=== PATIENT | male | born 1940 | race Caucasian/White ===

== ENCOUNTER 2021-11-26 18:51 | Outpatient (CLI) | payer MEDICARE, BC, SELFPAY ==
--- OUTSIDE RECORDS SUMMARY | 2021-11-26 13:29 | XMS_ITS | Clinical Summary ---
:1940 Author Organization [email or web address] [facility] [place] [address] Care Team Providers Name Role Phone Emil Cope MD Primary Care Provider Fuentes Romero MD Unavailable Nurses, Advanced Heart Failure Unavailable [phone] Allergies Active Allergy Reactions Severity Noted Date Comments Folic Acid Containing Drugs Diarrhea 08/24/2012 Claims to folic acid intolerant, cau ses diarrhea. Furosemide Rash Medium 01/13/2019 Amlodipine Edema 08/18/2006 Medications Medication Sig Dispensed Refills Start Date End Date Status ASPIRIN 81 MG TAB, take one tab 0 08/08/2008 Active DELAYED RELEASE daily glucosamine-chondroiti Take 1 capsule 0 04/27/2009 Active n, 500-400 mg, by mouth. Twice (COSAMIN DS 500/400) daily 500-400 mg Cap omega-3 fatty Take 2 capsules 0 08/23/2013 Active acids-vitamin E (FISH by mouth. OIL) 1,000 mg cap chlorthalidone Take 1 tablet by 90 tablet 3 08/22/2014 Active (HYGROTON) 25 mg mouth once tabletIndications: daily. Unspecified essential hypertension desoximetasone 0.25% Apply topically 1 Tube 6 08/22/2014 Active topical (TOPICORT) to affected 0.25 % cream area(s) 2 times daily. tamsulosin (FLOMAX) Take 1 capsule 90 capsule 3 08/22/2014 Active 0.4 mg by mouth once capsuleIndications: daily after a Unspecified essential meal. hypertension, Hypertrophy of prostate with urinary obstruction and other lower urinary tract symptoms (LUTS) ELIQUIS 2.5 mg tablet Take 1 tablet by 3 12/17/2018 Active mouth 2 times daily. ciclopirox 0.77% cream Apply topically 2 11/03/2018 Active (LOPROX) 0.77 % cream as needed. allopurinol (ZYLOPRIM) Take 2 tablets 2 03/16/2019 Active 100 mg tablet by mouth once daily. 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 3 03/06/2020 Active mg tabletIndications: mouth 2 times Chronic heart failure daily. with preserved ejection fraction (HFpEF) (HC) carvediloL (COREG) Take 1.5 tablets 270 tablet. 3 03/06/2020 Active 12.5 mg by mouth 2 times tabletIndications: daily with Chronic heart failure meals. with preserved ejection fraction (HFpEF) (HC) digoxin (LANOXIN) 125 Take 1 tablet by 90 tablet 3 03/06/2020 Active mcg (0.125 mg) mouth once tabletIndications: daily. Chronic heart failure with preserved ejection fraction (HFpEF) (HC) quinapriL (ACCUPRIL) Take 1 tablet by 90 tablet. 3 03/06/2020 Active 20 mg mouth once tabletIndications: daily. 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 Post-op serum creatinine 02/17/11 1.98 mg/dl. 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 Small RPDA ar ea in question. 08/05/2009 Hyperlipidemia 08/05/2009 Hypertrophy of prostate with urinary obstruction and o ther lower urinary 01/11/2007 tract symptoms (LUTS) Unspecified essential hypertension 11/30/2006 Resolved Problems Problem Noted Date Resolved Date Renal cell carcinoma 02/17/2011 03/04/2012 Left kidney mass 01/06/2011 06/10/2011 Overview: Seen on chest CT and abdominal MRI done 01/04. Patient referred to Urology for evaluation for possible biopsy and/or resection. SOB (shortness of breath) 09/17/2010 06/10/2011 Immunizations Name Administration Dates Next Due Td (Age >=7 Years) 07/21/1996 Family History Medical History Relation Name Comments Other Father jagdish eastman dis ease Cancer Mother lymphoma Relation Name Status Comments Father Mother Social History Tobacco Use Types Packs/Day Years Used Date Never Smoker Smokeless Tobacco: Never Used Tobacco Cessation: Counseling Given: Yes Alcohol Use Standard Drinks/Week Comments Yes 0 (1 standard drink = 0.6 oz pure alcoho l) rare Alcohol Habits Answer Date Recorded How often do you have a drink containing alcohol? Monthly or less 01/13/2019 How many drinks containing alcohol do you have on a 1 or 2 01/13/2019 typical day when you are drinking? How often do you have six or more drinks on one Not asked occasion? Comment: Not asked Sex Assigned at Date Recorded Not on file Obstetrics History Last Filed Vital Signs Vital Sign Reading Time Taken Comments Blood Pressure 108/60 03/05/2020 2:09 PM AITCHBONE BREAKER Pulse 64 03/05/2020 2:09 PM AITCHBONE BREAKER Temperature 36.1 ??C (97 ??F) 12/01/2014 11:20 AM CDT Respiratory Rate 18 11/23/2012 11:26 AM CDT Oxygen Saturation 96% 03/16/2019 3:04 PM AITCHBONE BREAKER Inhaled Oxygen Concentration - - Weight 126.6 kg (279 lb) 03/05/2020 2:09 PM AITCHBONE BREAKER Height 182.9 cm (6' 0.01) 03/16/2019 3:04 PM AITCHBONE BREAKER Body Mass Index 37.83 03/16/2019 3:04 PM AITCHBONE BREAKER Plan of Treatment Health Maintenance Due Date Last Done Comments COVID-19 vaccine series (#1) 02/24/1941 Tdap 1951 Hepatitis C screening for age 18-79 1960 Zoster (shingles) series for age 50+ 1992 (1 of 2) Medicare Wellness for age 65+ 08/26/2007 Pneumococcal series for age 65+ (1 - 08/26/2007 PCV) Depression screening for age 12+ 07/01/2016 07/02/2015 BMI (ht and wt on same day) for age 0103/16/2020 03/16/2019, 01/13/2019 18+ Tetanus booster 12/17/2020 12/17/2010 (Declined), 05/21/2010 (Declined), 07/21/1996 Influenza for age 65+ 10/31/2021 02/15/2013 Results Not on filefrom Last 3 Months Insurance Payer Benefit Plan / Subscriber ID Effective Dates Phone Addre ss Type Group MEDICARE PART B MEDICARE PART B [id number] 2007-Presen ATTN: CLAIMS - HB USE ONLY HB ONLY t [address] [place] [address] MEDICARE PART A MEDICARE PART A [id number] 2007-Presen ATTN: CLAIMS - HB USE ONLY HB ONLY t [address] [place] [address] BLUE CROSS [place] BLUE CROSS [id number] 2018-Presen [address] [address] [place], [place] [id number] Advance Directives Latest Code Status on File Code Status Date Activated Date Inactivated Comments Full Code 11/28/2007 8:43 PM 11/29/2007 5:18 PM Care Teams Journalism Professor Relationship Specialty Start Date End Date Emil Cope MD PCP - General Internal Medicine 09/07/181999 [place] [address] Fuentes Romero Cardiology - CHF Cardiovascular Disease 01/13/19 MD Juan [address] [facility] [address] [place] [address] Nurses, [facility] 01/13/19 Heart Failure Failure/Transplant Card [address] [place] [id number]
[2021-11-26 15:59] LABS: Albumin* 4.1 g/dL (3.3-5.0)
[2021-11-26 16:00] LABS: Chloride* 98 mmol/L (96-114); Potassium* 4.6 mmol/L (3.6-5.1); Sodium* 138 mmol/L (135-149)
[2021-11-26 16:02] LABS: Alkaline Phosphatase* 114 U/L (40-150); Aspartate Amino Transferase* 17 U/L (12-35); Bilirubin Total* 0.8 mg/dL (0.1-1.5); Blood Urea Nitrogen* 61 mg/dL (7-30); Carbon Dioxide* 28 mmol/L (20-32); Cholesterol* 109 mg/dL (90-199); Creatinine* 2.2 mg/dL (0.5-1.5); Estimated Glomerular Filt Rate 30 ml/min; Total Protein* 7.2 g/dL (6.0-8.3)
[2021-11-26 16:03] LABS: Alanine Aminotransferase* 14 U/L (4-50); Calcium* 9.6 mg/dL (8.4-10.6); Glucose* 114 mg/dL (60-115); HDL Cholesterol* 36 mg/dL (>=40); LDL Cholesterol Calculated 50 mg/dL (<100); Triglycerides* 114 mg/dL (40-149)
[2021-11-26 16:31] LABS: PSA Screen* 2.31 ng/mL (0.10-4.00)
== END 2021-11-26 18:52 | disposition home or self-care (01) ==
PROVIDERS: PCP Internal Medicine; Visit Provider Internal Medicine
DX: Z00.00 Encounter for general adult medical examination without abnormal findings (principal); I50.30 Unspecified diastolic (congestive) heart failure; N40.0 Benign prostatic hyperplasia without lower urinary tract symptoms; I10 Essential (primary) hypertension; E66.9 Obesity, unspecified; N18.4 Chronic kidney disease, stage 4 (severe); D63.1 Anemia in chronic kidney disease; Z13.6 Encounter for screening for cardiovascular disorders
CPT/HCPCS: 80053; 80061; 84153

== ENCOUNTER 2021-12-04 14:40 | Outpatient (CLI) | payer MEDICARE, BC, SELFPAY ==
--- OUTSIDE RECORDS SUMMARY | 2021-12-04 14:43 | XMS_ITS | Clinical Summary ---
:1940 Author Organization [employer] [facility] [place] [address] Care Team Providers Name Role Phone Emil Cope MD Primary Care Provider Fuentes Romero MD Unavailable Nurses, Advanced Heart Failure Unavailable [phone] Allergies Active Allergy Reactions Severity Noted Date Comments Folic Acid Containing Drugs Diarrhea 08/24/2012 Claims to folic acid intolerant, cau ses diarrhea. Furosemide Rash Medium 01/13/2019 Amlodipine Edema 08/18/2006 Medications Medication Sig Dispensed Refills Start End Date Status Date glucosamine-chondro Take 1 0 Active itin, 500-400 mg, capsule by 0 (COSAMIN DS mouth. Twice 500/400) 500-400 mg daily Cap omega-3 fatty Take 2 0 Active acids-vitamin E capsules by 4 (FISH OIL) 1,000 mg mouth. cap chlorthalidone Take 1 tablet 90 tablet 3 A ctive (HYGROTON) 25 mg by mouth once 5 tabletIndications: daily. Unspecified essential hypertension desoximetasone Apply 1 Tube 6 Activ e 0.25% topical topically to 5 (TOPICORT) 0.25 % affected cream area(s) 2 times daily. tamsulosin (FLOMAX) Take 1 90 capsule 3 Active 0.4 mg capsule by 5 capsuleIndications: mouth once Unspecified daily after a essential meal. hypertension, Hypertrophy of prostate with urinary obstruction and other lower urinary tract symptoms (LUTS) ELIQUIS 2.5 mg Take 1 tablet 3 A ctive tablet by mouth 2 9 times daily. ciclopirox 0.77% Apply 2 Act nadia cream (LOPROX) 0.77 topically as 9 % cream needed. allopurinol Take 2 2 Active (ZYLOPRIM) 100 mg tablets by 0 tablet mouth once daily. 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 3 Active 1 mg by mouth 2 1 tabletIndications: times daily. Chronic heart failure with preserved ejection fraction (HFpEF) (HC) carvediloL (COREG) Take 1.5 270 tablet. 3 Active 12.5 mg tablets by 1 tabletIndications: mouth 2 times Chronic heart daily with failure with meals. preserved ejection fraction (HFpEF) (HC) digoxin (LANOXIN) Take 1 tablet 90 tablet 3 Active 125 mcg (0.125 mg) by mouth once 1 tabletIndications: daily. Chronic heart failure with preserved ejection fraction (HFpEF) (HC) quinapriL Take 1 tablet 90 tablet. 3 Activ e (ACCUPRIL) 20 mg by mouth once 1 tabletIndications: daily. Essential hypertension metOLazone Take one 60 Tablet 5 Active (ZAROXOLYN) 2.5 mg tablet in the 2 tabletIndications: morning on Chronic diastolic Thursday and heart failure (HC) Thursday ASPIRIN 81 MG TAB, take one tab 0 11/30/19 Discontinued DELAYED RELEASE daily 9 22 (*Me d complete/R egimen complete/L evel of care fede) Active Problems Problem Noted Date Knee pain, [...] resection. SOB (shortness of breath) 09/17/2010 06/10/2011 Encounters Date Type Specialty Care Team Description 11/29/2021 Office Visit David East MD Follow Up 11/29/2021 Travel from Last 3 Months Immunizations Name Administration Dates Next Due Td (Age >=7 Years) 07/21/1996 Family History Medical History Relation Name Comments Other Father jagdish mcguire's dis ease Cancer Mother lymphoma Relation Name [...] Assigned at Date Recorded Not on file COVID-19 Exposure Response Date Recorded In the last 10 days, have you been in contact Unable to asse ss 11/29/2021 12:43 PM CDT with someone who was confirmed or suspected to have Coronavirus/COVID-19? Obstetrics History Last Filed Vital Signs Vital Sign Reading Time Taken Comments Blood Pressure 136/70 11/29/2021 1:10 PM CDT Pulse 58 11/29/2021 1:10 PM CDT Temperature 36.1 ??C (97 ??F) 12/01/2014 11:20 AM CDT Respiratory Rate 18 11/29/2021 1:10 PM CDT Oxygen Saturation 96% 03/16/2019 3:04 PM HUMAN RESOURCE STATISTICIAN Inhaled Oxygen Concentration - - Weight 118.8 kg (262 lb) 11/29/2021 1:10 PM CDT Height 182.9 cm (6' 0.01) 03/16/2019 3:04 PM HUMAN RESOURCE STATISTICIAN Body Mass Index 35.53 03/16/2019 3:04 PM HUMAN RESOURCE STATISTICIAN Plan of Treatment Upcoming Encounters Date Type Specialty Care Team Description 12/04/2021 Orders Only Health Maintenance Due Date Last Done Comments Pneumococcal series for age 65+ (1 1948 - PCV) Tdap 1953 Hepatitis C screening for age 0608/25/1960 18-79 Zoster (shingles) series for age 0608/25/1992 50+ (1 of 2) Medicare Wellness for age 65+ 08/26/2007 Depression screening for age 12+ 07/01/2016 07/02/2015 BMI (ht and wt on same day) for 03/16/2020 03/16/2019, 12/31 age 18+ Tetanus booster 12/17/2020 12/17/2010 (Declined), 05/21/2010 (Declined), 07/21/1996 COVID-19 vaccine series (5 - 09/17/2021 07/23/2021, 021, Booster for Pfizer series) 05/01/2020, Additiona l history exists Influenza for age 65+ 10/31/2021 02/15/2013 Results Not on filefrom Last 3 Months Insurance Payer Benefit Plan / Subscriber ID Effective Dates Phone Addre ss Type Group MEDICARE PART B MEDICARE PART B [id number] 2007-Presen ATTN: CLAIMS - HB USE ONLY HB ONLY t [address] [place] [address] MEDICARE PART A MEDICARE PART A [id number] 2007-Alexia ATTN: CLAIMS - HB USE ONLY HB ONLY t [address] [place] [address] BLUE CROSS MR HART CROSS [id number] 2018-Alexia [address] [address] [place], [place] [id number] Advance Directives Latest Code Status on File Code Status Date Activated Date Inactivated Comments Full Code 11/28/2007 8:43 PM 11/29/2007 5:18 PM Care Teams Animal Taxonomist Relationship Specialty Start Date End Date Emil Cope MD PCP - General Internal Medicine 09/07/181999 [place] [address] Fuentes Romero Cardiology - CHF Cardiovascular Disease 01/13/19 MD Juan [address] [facility] [address] [place], [place] [id number] Nurses, Advanced [facility] 01/13/19 Heart Failure Failure/Transplant Card [address] [place], [place] [id number]
== END 2021-12-04 14:41 | disposition home or self-care (01) ==
PROVIDERS: PCP Internal Medicine; Visit Provider Internal Medicine
DX: I95.9 Hypotension, unspecified (principal); I07.1 Rheumatic tricuspid insufficiency; I51.7 Cardiomegaly; I31.39 Other pericardial effusion (noninflammatory)
CPT/HCPCS: 93306

== ENCOUNTER 2021-12-11 11:29 | Outpatient (CLI) | payer MEDICARE, BC, SELFPAY ==
--- OUTSIDE RECORDS SUMMARY | 2021-12-11 13:11 | XMS_ITS | Clinical Summary ---
:1940 Author Organization [employer] [facility] [place] [address] Care Team Providers Name Role Phone Emil Holcomb MD Primary Care Provider Fuentes Romero MD Unavailable Nurses, Advanced Heart Failure Unavailable [phone] Allergies Active Allergy Reactions Severity Noted Date [...] d complete/R egimen complete/L evel of care fdee) Active Problems Problem Noted Date Knee pain, [...] Specialty Care Team Description 12/04/2021 Orders Only <No scans attac hed> 12/04/2021 Travel 11/29/2021 Office Visit David East MD Follow [...] 10 days, have you been in contact with No / Unsu re 12/04/2021 3:41 PM CDT someone who was confirmed or suspected to have Coronavirus/COVID-19? Obstetrics History Last Filed Vital Signs Vital Sign Reading Time Taken Comments Blood Pressure 136/70 11/29/2021 1:10 PM CDT Pulse 58 11/29/2021 1:10 PM CDT Temperature 36.1 ??C (97 ??F) 12/01/2014 11:20 AM CDT Respiratory Rate 18 11/29/2021 1:10 PM CDT Oxygen Saturation 96% 03/16/2019 3:04 PM CORPORATE LEGAL SECRETARY Inhaled Oxygen Concentration - - Weight 118.8 kg (262 lb) 11/29/2021 1:10 PM CDT Height 182.9 cm (6' 0.01) 03/16/2019 3:04 PM CORPORATE LEGAL SECRETARY Body Mass Index 35.53 03/16/2019 3:04 PM CORPORATE LEGAL SECRETARY Plan of Treatment Health Maintenance Due Date [...] exists Influenza for age 65+ 10/31/2021 02/15/2013 Procedures Procedure Name Priority Date/Time Associated Diagnosis Comme nts ECHO COMPLETE WO Routine 12/04/2021 4:58 PM Hypotension Resul ts for this CONTRAST CDT procedure are i n the results section. from Last 3 Months Results ECHO COMPLETE WO CONTRAST (12/04/2021 4:58 PM CDT) P athologist Signature AORTIC VALVE 6 mmHg MEAN PG EJECTION 62 % FRACTION PEAK TR 3.0 m/s VELOCITY LVEDD 5.4 cm Anatomical Region Laterality Modality HEART Ultrasound Specimen (Source) Anatomical Collection Method Collection Time Re ceived Time Location / / Volume Laterality 12/04/2021 3:54 PM CDT Narrative 12/04/2021 5:03 PM CDT ECHOCARDIOGRAM MR. SHIVA MONIQUE ? Accessi on#: ?? [id number] : ?1940 81 years Study Date: ?? 12/04/2021 3:54:43 PM Gender: M ?BP: ? 136/70 mmHg Height: 183.00 cm ?BSA: ?2.39 m? ?? Weight: 119.00 kg ?Tech: ? MTS ? Referring MD: EMIL HOLCOMB Site: ? [facility] Reading Location: MOBILE OP Procedure: 2D, Color Doppler and Spectra l Doppler. Indication for study: Hypotension [I95.9 (ICD-10-CM)] Cardiac Rhythm: Irregular.Study quality: Fair. Final Impressions: 1. Normal left ventricular size, modera tely increased wall thickness, normal global systolic function, calculated EF of 62 %. 2. Right ventricular cavity size is mil dly enlarged, global systolic RV function is mildly reduced. 3. Moderately enlarged left atrium. 4. Moderate tricuspid regurgitation, th e estimated right ventricular systolic pressure is 36 mmHg plus right atrial pressure. 5. The inferior vena cava is dilated, r espiratory size variation less than 50%. 6. The ascending aorta is dilated with a maximal diameter of 4.3 cm. 7. The aortic sinus is dilated with a m aximal diameter of 4.3 cm. 8. Trivial pericardial effusion. Chamber Sizes and Function Normal left ventricular size, moderately increased wall thickness, normal global systolic function, calculated EF of 62 %. Left atrial size is moderately enlarged. Right ventricular cavity size is mildl y enlarged, global systolic RV function is mildly reduced. The right atrium is moderately enlarged. Right atrial volume index is 43 ml/m? ??. Right atrial area is 34 cm? ??. The pulmonary artery is not well visualized. The sinus of Valsalva i s dilated. The ascending aorta is dilated. Valves, RV Pressures and Diastolic Funct ion The aortic valve is trileaflet, no steno sis and mild regurgitation. The mitral valve is normal in structure, trace mitral regurgitation. Indeterminate pattern of LV diastolic filling. The tricuspid valv e is normal in structure. Tricuspid regu rgitation is moderate-severe. The tricuspid regurgitant velocity is 3.0 m/s, the estimated right ventricular systolic pressure is 36 mmHg plus right atrial pressu re. The pulmonic valve is normal. No pul monary regurgitation. Masses, Effusion, Shunts There is trivial pericardial effusion. T he inferior vena cava is dilated, respiratory size variation less than 50%. Interatrial septum is not well visualized. MEASUREMENTS AND CALCULATIONS 2-D Measurements and LV Function: LVID (d) 5.4 cm Planimetered EF 62 % LVID (s) 3.7 cm LV FS% (2D) ? 32 % IVS (d) ??1.6 cm LVOT diameter ?? 2.4 cm LVPW (d) 1.5 cm HR ?6 8 bpm Ao Sinus 4.3 cm LA Vol index ?48 ml/ m2 Asc Ao ?? 4.3 cm RA Vol index ?43 ml /m2 LA ? 6.3 cm RA area ? 3 4 cm?RV Max 4C (d) ?? 4.3 cm Diastology: Mitral E Peak 1.0 m/s DT ? 241 msec Aortic Valve: Vmax ? 1.5 m/s ??CLAUDIA (V) ?? 2.98 cm? ?? VTI ?0.32 m ?? CLAUDIA (I) ?? 2.77 cm? ?? LVOT V max 1.0 m/s ??Max PG ?9 mmHg LVOT VTI ?? 0.19 m ?? Mean PG ?? 6 mmHg SV ? 89 ml ?Dim Index 0.60 SV index ?? 37 ml/m? ?? CO ?6.1 l/min ?CI ?2.5 l/min/m? ?? Mitral Valve: MVA ?3.1 cm? ?? MV P 1/2 70 msec Tricuspid Valve and estimated PA pressur es: TR Vmax 3.0 m/s TAPSE 2.0 cm TR maxG 36 mmHg . This study was interpreted by an [facility] facility. CC: [facility]. ??Final ?? Procedure Note Ghanshyam Kiran MD - 12/04/2021Format ting of this note might be different from the original. ECHOCARDIOGRAM MR. SHIVA MONIQUE : 1940 81 years Study Date: 12/04 3:54:43 PM Gender: M BP: 136/70 mmHg Height: 183.00 cm BSA: 2.39 m? ?? Weight: 119.00 kg Tech: [facility] Referring MD: EMIL HOLCOMB Site: [facility] [place] Reading Location: MOBILE OP Procedure: 2D, Color Doppler and Spectra l Doppler. Indication for study: Hypotension [I95.9 (ICD-10-CM)] Cardiac Rhythm: Irregular.Study quality: Fair. Final Impressions: 1. Normal left ventricular size, modera tely increased wall thickness, normal global systolic function, calculated EF of 62 %. 2. Right ventricular cavity size is mil dly enlarged, global systolic RV function is mildly reduced. 3. Moderately enlarged left atrium. 4. Moderate tricuspid regurgitation, th e estimated right ventricular systolic pressure is 36 mmHg plus right atrial pressure. 5. The inferior vena cava is dilated, r espiratory size variation less than 50%. 6. The ascending aorta is dilated with a maximal diameter of 4.3 cm. 7. The aortic sinus is dilated with a m aximal diameter of 4.3 cm. 8. Trivial pericardial effusion. Chamber Sizes and Function Normal left ventricular size, moderately increased wall thickness, normal global systolic function, calculated EF of 62 %. Left atrial size is moderately enlarged. Right ventricular cavity size is mildly enlarged, global systolic RV function is mildly re duced. The right atrium is moderately enlarged. Right atrial volume index is 43 ml/m? ??. Right atrial area is 34 cm? ??. The pulmonary artery is not well visualized. The sinus of Valsalva is dilated. The ascending aorta is dilated. Valves, RV Pressures and Diastolic Funct ion The aortic valve is trileaflet, no steno sis and mild regurgitation. The mitral valve is normal in structure, trace mitral regurgitation. Indeterminate pattern of LV diastolic filling. The tricuspid valve is normal in structure. Tricuspid regurgita tion is moderate-severe. The tricuspid regurgitant velocity is 3.0 m/s, the estimated right ventricular systolic pressure is 36 mmHg plus right atrial pressure. The pulmonic valve is normal. No pulmonary regurgitat ion. Masses, Effusion, Shunts There is trivial pericardial effusion. T he inferior vena cava is dilated, respiratory size variation less than 50%. Interatrial septum is not well visualized. MEASUREMENTS AND CALCULATIONS 2-D Measurements and LV Function: LVID (d) 5.4 cm Planimetered EF 62 % LVID (s) 3.7 cm LV FS% (2D) 32 % IVS (d) 1.6 cm LVOT diameter 2.4 cm LVPW (d) 1.5 cm HR 68 bpm Ao Sinus 4.3 cm LA Vol index 48 ml/m2 Asc Ao 4.3 cm RA Vol index 43 ml/m2 LA 6.3 cm RA area 34 cm? ?? RV Max 4C (d) 4.3 cm Diastology: Mitral E Peak 1.0 m/s DT 241 msec Aortic Valve: Vmax 1.5 m/s CLAUDIA (V) 2.98 cm? ?? VTI 0.32 m CLAUDIA (I) 2.77 cm? ?? LVOT V max 1.0 m/s Max PG 9 mmHg LVOT VTI 0.19 m Mean PG 6 mmHg SV 89 ml Dim Index 0.60 SV index 37 ml/m? ?? CO 6.1 l/min CI 2.5 l/min/m? ?? Mitral Valve: MVA 3.1 cm? ?? MV P 1/2 70 msec Tricuspid Valve and estimated PA pressur es: TR Vmax 3.0 m/s TAPSE 2.0 cm TR maxG 36 mmHg . This study was interpreted by an [facility] facility. CC: [facility]. Final Emil Holcomb MD ECHO ORD from Last 3 Months Insurance Payer Benefit Plan / Subscriber ID Effective Dates Phone Addre ss Type Group MEDICARE PART B MEDICARE PART B [id number] 2007-Presen ATTN: CLAIMS - HB USE ONLY HB ONLY t [address] [place] [address] MEDICARE PART A MEDICARE PART A [id number] 2007-Presen ATTN: CLAIMS - HB USE ONLY HB ONLY t [address] [place] [address] BLUE CROSS MR BLUE CROSS [id number] 2018-Presen [address] [address] [place], [place] [id number] Advance Directives Latest Code Status on File Code Status Date Activated Date Inactivated Comments Full Code 11/28/2007 8:43 PM 11/29/2007 5:18 PM Care Teams Social Worker Palliative Care Relationship Specialty Start Date End Date Emil Holcomb MD PCP - General Internal Medicine 09/07/181999 [place] [address] Fuentes Romero Cardiology - CHF Cardiovascular Disease 01/13/19 MD Juan [address] [facility] [address] [place] [address] Nurses, Advanced [facility] 01/13/19 Heart Failure Failure/Transplant Card [address], [place] [phone]
[2021-12-11 15:04] LABS: Chloride* 93 mmol/L (96-114); Potassium* 3.6 mmol/L (3.6-5.1); Sodium* 135 mmol/L (135-149)
[2021-12-11 15:06] LABS: Creatinine* 2.5 mg/dL (0.5-1.5); Estimated Glomerular Filt Rate 26 ml/min
[2021-12-11 15:07] LABS: Alanine Aminotransferase* 13 U/L (4-50); Alkaline Phosphatase* 104 U/L (40-150); Aspartate Amino Transferase* 15 U/L (12-35); Bilirubin Total* 0.6 mg/dL (0.1-1.5); Blood Urea Nitrogen* 89 mg/dL (7-30); Carbon Dioxide* 29 mmol/L (20-32); Glucose* 115 mg/dL (60-115); Total Protein* 6.9 g/dL (6.0-8.3)
[2021-12-11 15:08] LABS: Calcium* 9.4 mg/dL (8.4-10.6)
== END 2021-12-11 11:30 | disposition home or self-care (01) ==
LOC: NFLDREF 13:10
PROVIDERS: PCP Internal Medicine; Visit Provider Internal Medicine
DX: D63.1 Anemia in chronic kidney disease (principal); I10 Essential (primary) hypertension; I50.9 Heart failure, unspecified; N18.9 Chronic kidney disease, unspecified
CPT/HCPCS: 80053

== ENCOUNTER 2022-04-01 19:30 | Outpatient (REF) | payer MEDICARE, BC, SELFPAY ==
[2022-04-01 20:06] LABS: Albumin* 4.2 g/dL (3.3-5.0); Basophils Absolute Auto 0.05 K/uL (0.00-0.30); Basophils Percent Auto 0.6 % (0.0-3.0); Chloride* 96 mmol/L (96-114); Eosinophils Absolute Auto 0.32 K/uL (0.00-0.50); Eosinophils Percent Auto 3.9 % (0.0-7.0); Hematocrit 39.6 % (37.0-53.0); Hemoglobin* 12.8 gm/dL (13.5-17.5); Immature Granulocytes Abs Auto 0.01 K/uL (0.00-0.30); Immature Granulocytes Pct Auto 0.1 %; Lymphocytes Absolute Auto 1.81 K/uL (0.90-2.90); Lymphocytes Percent Auto 21.8 % (20-44); Mean Corpuscular HGB Conc 32 gm/dL (32-36); Mean Corpuscular Hemoglobin 30 pg (26-34); Mean Corpuscular Volume 93 fL (80-100); Monocytes Percent Auto 10.2 % (0.0-11.0); Neutrophils Absolute Auto 5.27 K/uL (1.7-7.0); Neutrophils Percent Auto 63.4 % (42.0-72.0); Platelet Count* 190 K/uL (140-440); Red Blood Count 4.25 m/uL (4.30-5.90); White Blood Count* 8.31 K/uL (4.50-11.00)
[2022-04-01 20:07] LABS: Potassium* 3.4 mmol/L (3.6-5.1); Sodium* 136 mmol/L (135-149)
[2022-04-01 20:09] LABS: Aspartate Amino Transferase* 36 U/L (12-35); Bilirubin Total* 0.5 mg/dL (0.1-1.5); Carbon Dioxide* 31 mmol/L (20-32); Estimated Glomerular Filt Rate 33 ml/min
[2022-04-01 20:10] LABS: Alanine Aminotransferase* 33 U/L (4-50); Alkaline Phosphatase* 104 U/L (40-150); Blood Urea Nitrogen* 41 mg/dL (7-30); Glucose* 103 mg/dL (60-115); Total Protein* 7.6 g/dL (6.0-8.3)
[2022-04-01 20:11] LABS: Slide Review Reflex No
[2022-04-03 04:27] LABS: Percent Iron Saturation 23 % (20-50); Total Iron Binding Capacity 361 ug/dL (261-462)
[2022-04-03 05:31] LABS: Iron* 83 ug/dL (49-181)
== END 2022-04-01 19:31 | disposition home or self-care (01) ==
LOC: NPINS 19:30
PROVIDERS: PCP Internal Medicine
DX: I50.9 Heart failure, unspecified (principal); N18.30 Chronic kidney disease, stage 3 unspecified; I10 Essential (primary) hypertension; M10.9 Gout, unspecified; I48.91 Unspecified atrial fibrillation; E66.9 Obesity, unspecified; I95.1 Orthostatic hypotension
CPT/HCPCS: 80053; 82728; 83540; 83550; 85025

== ENCOUNTER 2022-05-27 17:12 | Outpatient (REF) | payer MEDICARE, BC, SELFPAY ==
[2022-05-27 18:30] LABS: Chloride* 94 mmol/L (96-114); Potassium* 3.8 mmol/L (3.6-5.1); Sodium* 136 mmol/L (135-149)
[2022-05-27 18:33] LABS: Blood Urea Nitrogen* 44 mg/dL (7-30); Carbon Dioxide* 30 mmol/L (20-32); Creatinine* 2.3 mg/dL (0.5-1.5); Estimated Glomerular Filt Rate 28 ml/min
[2022-05-27 18:34] LABS: Calcium* 10.2 mg/dL (8.4-10.6); Glucose* 96 mg/dL (60-115)
== END 2022-05-27 17:13 | disposition home or self-care (01) ==
LOC: NPINS 17:12
PROVIDERS: PCP Internal Medicine
DX: I50.32 Chronic diastolic (congestive) heart failure (principal)
CPT/HCPCS: 80048

== ENCOUNTER 2022-11-07 15:14 | Outpatient (REF) | payer MEDICARE, BC, SELFPAY ==
[2022-11-07 15:28] LABS: Basophils Absolute Auto 0.05 K/uL (0.00-0.30); Basophils Percent Auto 0.5 % (0.0-3.0); Eosinophils Absolute Auto 0.25 K/uL (0.00-0.50); Eosinophils Percent Auto 2.5 % (0.0-7.0); Hemoglobin* 13.1 gm/dL (13.5-17.5); Immature Granulocytes Abs Auto 0.03 K/uL (0.00-0.30); Immature Granulocytes Pct Auto 0.3 %; Lymphocytes Percent Auto 19.9 % (20-44); Mean Corpuscular HGB Conc 33 gm/dL (32-36); Mean Corpuscular Hemoglobin 32 pg (26-34); Mean Corpuscular Volume 97 fL (80-100); Monocytes Percent Auto 9.2 % (0.0-11.0); Neutrophils Absolute Auto 6.64 K/uL (1.7-7.0); Neutrophils Percent Auto 67.6 % (42.0-72.0); Platelet Count* 197 K/uL (140-440); RDW Coefficient of Variation % 14.1 % (11.5-15.5); Red Blood Count 4.13 m/uL (4.30-5.90); White Blood Count* 9.83 K/uL (4.50-11.00)
[2022-11-07 15:32] LABS: Slide Review Reflex No
[2022-11-07 16:30] LABS: Ferritin* 72.5 ng/mL (17.9-464.0)
== END 2022-11-07 15:15 | disposition home or self-care (01) ==
LOC: NPINS 15:14
PROVIDERS: PCP Internal Medicine; Visit Provider Nurse Practitioner
DX: D50.8 Other iron deficiency anemias (principal)
CPT/HCPCS: 82728; 85025

== ENCOUNTER 2023-03-09 11:00 | Outpatient (CLI) | payer MEDICARE, BC, SELFPAY ==
--- OUTSIDE RECORDS SUMMARY | 2023-03-09 17:10 | XMS_ITS | Encounter Summary ---
Author Name Unknown Organization [place] Address [address] [facility] [place] [address] Care Team Providers Care Head Of Digital Advertising & Integration Name Role Phone Emmanuel Nobles MD Unavailable [phone] Anthony Leyva MD Unavailable [phone] Anthony Leyva MD Unavailable [phone] Evaristo Stack CNP Unavailable Shaila Mota APRN LANDSCAPER HELPER Unavailable Emil Cope MD Primary Care Provider Reason for Visit * Reason Comments Oncology Clinic Visit Encounter Details Date Type Department Care Team (Late st Contact Info) Description 11/10/2022 1:15 PM CDT Oncology Visit [address], [address] [place] [phone] Emmanuel Nobles MD [address] [place] [address] Evaristo Stack CNP [address] [place] [id number] Iron deficiency anemia due to chronic blood loss (Primary Dx); Myelodysplastic syndrome (H) Social History Tobacco Use Types Packs/Day Years Used Date Smoking Tobacco: Never Smokeless Tobacco: Never Alcohol Use Standard Drinks/Week Comments Yes 0 (1 standard drink = 0.6 oz pur e alcohol) very rare PHQ-2 Answer Date Recorded PHQ-2 Score 0 04/03/2022 Sex and Gender Information Value Date Recorded Sex Assigned at Not on file Gender Identity Not on file Sexual Orientation Not on file COVID-19 Exposure Response Date Recorded In the last 10 days, have yo u been in contact with someone who was confirmed or suspected to have Coronavirus/COVID-19? No / Unsure 11/10/2022 12:45 PM CDT documented as of this encounter Last Filed Vital Signs Vital Sign Reading Time Taken Comments Blood Pressure 128/69 11/10/2022 1:02 PM CDT Pulse 84 11/10/2022 1:02 PM CDT Temperature - - Respiratory Rate - - Oxygen Saturation 96% 11/10/2022 1:02 PM CDT Inhaled Oxygen Concentration - - Weight 112.3 kg (247 lb 8 oz) 11/10/2022 1:02 PM CDT Height 182.9 cm (6' 0.01) 11/10/2022 1:02 PM CD T Body Mass Index 33.56 11/10/2022 1:02 PM CDT documented in this encounter Progress Notes * Evaristo Stack, LANA - 11/10/2022 1:15 PM CDT [facility] Hematology and Oncology Progress Note Patient: Tutu Ngo Date of Service: Nov 10, 2022 Reason for Visit: Scheduled f/up Assessment and Plan: 1. Iron deficiency anemia and myelodysplastic syndrome, IPSS-R3.5: 82 year old. 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 Creatinines in the 1.6 range, diastolic heart failure, coronary artery disease, atrial fibrillation on apixaban and aspirin, hypertension, hyperlipidemia, gout and BPH. Patient presents accompanied by his . Overall, he has been feeling quite good. Appetite good - weight up ~5 pounds since last seen 4 months ago, ~15 pounds the past 9-months. Stable limited PS. No known source of blood loss. No history of or current alcohol abuse ... States he and his share a beer on special occasions. Off NSAIDs since diagnosis of anemia. Denies cough, fever, chills, unusual headaches, visual or mentation disturbance, bowel or bladder issues, rash. Outside CBC - WBC, differential and Plts WNL. HgB increased/stable @ 13.1 g/dL. Outside Ferritin - decreased/WNL @ 72.5. Continued good and lasting response to parenteral iron therapy. Last received 2 doses 300 mg venofer ~10 months ago, on 02/05 and 02/07/23 (HgB 11.6 at the time). HgB WNL/increased from that of 4-months ago. 01/14/22 small bowel capsule enteroscopy revealed proximal and mid jejunal apparent varices and erythematous gastropathy - likely source of bleed. No history of, or current alcohol abuse. Off NSAIDs since diagnosis of anemia. Does not need to start oral iron at this time (has never taken). Discussed routine monitoring through PCP. He wishes for us to continue to follow. Diastolic heart failure - follows with the chronic heart failure clinic, Dr Anthony Mazariegos. 6-month f/up with CBC and ferritin. Patient lives over 40 miles away in [place], [place]. I told him it would be totally appropriate to get his labs drawn at the [facility] and video f/up for his next appointment if desired. Hematologic History: 1. Iron deficiency anemia and myelodysplastic syndrome, IPSS-R3.5 12/12/2021-12/01/2021 hospitalized for hypotension, iron deficiency, abrupt anemia and diastolic heart failure. 12/12/21 inpatient EGD/colonoscopy revealed no apparent bleeding source. 12/14/21 CT CAP - revealed no retroperitoneal hematoma or gross small bowel pathology. 12/16/21 bone marrow biopsy revealed a hypercellular bone marrow with high normal CD34 positive blasts with increased CD56 suggestive of a myelodysplastic syndrome with increased B interstitial cellsassociated with normal chromosomes, MDS-NGS, FISH, and flow cytometry. Decreased bone marrow iron stores were noted with peripheral blood counts supporting a diagnosis of iron deficiency anemia associate with erythropoietin level 60 and a creatinine of 2.38. (anemia, hypercellular marrow, normal cytogenetics, blasts increased but less than 5%) 02/05/2022 and 02/07/2022 received 2 doses 300 mg venofer, after 500 mg iron sucrose administered as an inpatient. 01/14/22 small bowel capsule enteroscopy revealed proximal and mid jejunal apparent varices. Erythematous gastropathy was also observed. ECOG Performance: 2 - Ambulatory and independent in all ADLs; cannot work; up > 50% of the time Pain Pain Score: No Pain (0) Encounter Diagnoses: Problem List Items Addressed This Visit Hematologic Iron deficiency anemia due to chronic blood loss - Primary Relevant Orders Ferritin CBC with platelets and differential Other Visit Diagnoses Myelodysplastic syndrome (H) Relevant Orders Ferritin CBC with platelets and differential 28 minutes of time were spent on the date of this encounter with chart review, face to face time with the patient, examination, recommendations, documentation, and communication of the plan of care to the care team. Evaristo Stack, [facility] CC: Anthony Mazariegos MD Review of Systems: No fever or night sweats. No loss of weight. No lumps or bumps anywhere. No unusual headaches or eyesight issues. No dizziness. No bleeding from the nose. No sores in the mouth. No problems with swallowing. No chest pain. No shortness of breath. No cough. No abdominal pain. No nausea or vomiting. No diarrhea or constipation. No blood in stool or black colored stools. No problems passing urine. No numbness or tingling in hands or feet. No skin rashes. A 14 point review of systems is otherwise negative. Past History: Past Medical History: Diagnosis Date Anesthesia complication confusion & crying after bilat carpal tunnel surgery Arrhythmia a fib Atrial fibrillation (H) BPH (benign prostatic hyperplasia) Chronic kidney disease Colonic polyps Congestive heart failure (H) Cranial nerve palsy resolved Diastolic dysfunction Dyspnea on exertion Eczema GERD (gastroesophageal reflux disease) HTN (hypertension) Hyperlipidemia Obesity VIANNEY (obstructive sleep apnea) 02/03/2022 VIANNEY on CPAP Renal disease Past Surgical History: Procedure Laterality Date ARTHROPLASTY KNEE 03/29/2013 Procedure: ARTHROPLASTY KNEE; ARTHROPLASTY KNEE LEFT; Surgeon: Eric Pepper MD; Location: OR CAPSULE/PILL CAM ENDOSCOPY N/A 01/14/2022 Procedure: IMAGING PROCEDURE, GI TRACT, INTRALUMINAL, VIA CAPSULE; Surgeon: Jeb Burr MD;Location: GI COLONOSCOPY N/A 12/13/2021 Procedure: COLONOSCOPY WITH POLYPECTOMY AND CLIP PLACEMENT; Surgeon: Jose Alberto Diallo MD; Location: [facility] OR ESOPHAGOSCOPY, GASTROSCOPY, DUODENOSCOPY (EGD), COMBINED N/A 12/13/2021 Procedure: ESOPHAGOGASTRODUODENOSCOPY (EGD) WITH BIOPSIES; Surgeon: Jose Alberto Diallo MD; Location: [facility] OR HERNIA REPAIR left nephrectomy[ RELEASE CARPAL TUNNEL BILATERAL right total knee arthroplasty[ Physical Exam: BP 128/69 (BP Location: Right arm, Patient Position: Sitting, Cuff Size: Adult Large) Pulse 84 Ht 1.829 m (6' 0.01) Wt 112.3 kg (247 lb 8 oz) SpO2 96% BMI 33.56 kg/m?? GENERAL: Alert and oriented. Seated comfortably. In no distress. HEENT: Atraumatic and normocephalic. PRINCE. EOMI. No pallor. No icterus. No mucosal lesions. LYMPH NODES: No palpable cervical, axillary or inguinal lymphadenopathy. CHEST: Lungs clear to auscultation bilaterally. CVS: S1 and S2 heard. Regular rate and rhythm. ABDOMEN: Soft. Not tender. Overweight. No palpable hepatomegaly or splenomegaly. EXTREMITIES: Warm. SKIN: No rash, bruising or purpura noted. Lab Results: Reviewed recent outside labs with patient. Imaging: No results found. * Araceli Ospina MA - 11/10/2022 1:15 PM CDT Oncology Rooming Note November 10, 2022 1:20 PM Tutu Ngo is a 82 year old male who presents for: Chief Complaint Patient presents with Oncology Clinic Visit Initial Vitals: Ht 1.829 m (6' 0.01) BMI 32.81 kg/m?? Estimated body mass index is 32.81 kg/m?? as calculated from the following: Height as of this encounter: 1.829 m (6' 0.01). Weight as of 09/15/22: 109.8 kg (242 lb). Body surface area is 2.36 meters squared. Data Unavailable Comment: Data Unavailable No LMP for male patient. Allergies reviewed: Yes Medications reviewed: Yes Medications: Medication refills not needed today. Pharmacy name entered into [employer]: [place], [place] - [address] [facility] Clinical concerns: 4 month follow up Araceli Ospina MA documented in this encounter Plan of Treatment Upcoming Encounters Date Type Department Care Team (Late st Contact Info) Description 05/11/2023 1:30 PM CDT Virtual Visit [facility] [address] [place] [phone] Evaristo Stack, LANDSCAPER HELPER [address] [facility] [address] [facility] [place] [address] Nallely Saravia MD [address] [place], [place] [phone] Scheduled Orders Name Type Priority Associated Diagnoses Orde r Schedule Ferritin Lab Routine Iron deficiency anemia due to chronic blood loss Myelodysplastic syndrome (H) Expected: 05/11/2023 (Approximate), Expires: 11/11/2023 CBC with platelets and differential Lab Panel Routine Iron deficiency anemia due to chronic blood loss Myelodysplastic syndrome (H) Expected: 05/11/2023 (Approximate), Expires: 11/11/2023 documented as of this encounter Visit Diagnoses Diagnosis Iron deficiency anemia due to chronic blood loss- Primary Iron deficiency anemia secondary to blood loss (chronic) Myelodysplastic syndrome (H) Myelodysplastic syndrome, unspecified documented in this encounter Care Teams Head Of Digital Advertising & Integration Relationship Specialty Start Date End Date Emil Cope MD [facility] [address] [place] [address] PCP - General Emergency Medicine 09/30/22 Emmanuel Nobles MD [address] [facility] [place] [address] Hematology 02/07/22 Anthony Leyva MD [address] [place] [address] Gastroenterology 02/07/22 Anthony Leyva MD [address] [place] [address] Assigned Gastroenterology Provider 04/12/22 Evaristo Stack, LANA [address] [facility] [address] [place] [address] Assigned Cancer Care Provider 07/26/22 Shaila Mota APRN LANDSCAPER HELPER [address] [facility], [address] [place] [address] Assigned Heart and Vascular Provider 09/20/22 01/16/23 documented as of this encounter
--- OUTSIDE RECORDS SUMMARY | 2023-03-09 17:10 | XMS_ITS | Encounter Summary ---
Author Name Unknown Organization [place] Address [address] [facility] [place] [address] Care Team Providers Care Shell Machine Operator Name Role Phone HenryciraEmmanuel MD Unavailable [phone] Anthony Leyva MD Unavailable [phone] Anthony Leyva MD Unavailable [phone] Evaristo Stack CLAMSHELL OPERATOR Unavailable Shaila Mota APRN CLAMSHELL OPERATOR Unavailable Emil Cope MD Primary Care Provider Reason for Visit * Reason Comments Medication Refill Encounter Details Date Type Department Care Team (Late st Contact Info) Description 01/15/2023 Refill [place] [id number] [facility] [address] [place] [phone] Anthony Mazariegos MD [address] [facility] [address] [place], [place] [phone] Medication Refill Social History Tobacco Use Types Packs/Day Years Used Date Smoking Tobacco: Never Smokeless Tobacco: Never Alcohol Use Standard Drinks/Week Comments Yes 0 (1 standard drink = 0.6 oz pur e alcohol) very rare PHQ-2 Answer Date Recorded PHQ-2 Score 0 04/03/2022 Adolescent Education Answer Date Record ed Getting School Help Needed Not on file 12/14 Sex and Gender Information Value Date Recorded Sex Assigned at Not on file Gender Identity Not on file Sexual Orientation Not on file documented as of this encounter Plan of Treatment Upcoming Encounters Date Type Department Care Team (Late st Contact Info) Description 05/11/2023 1:30 PM CDT Virtual Visit [facility] [address] [place] [phone] Evaristo Stack CNP [address] [place] [phone] Nallely Saravia MD [address] [place], [place] [phone] documented as of this encounter Visit Diagnoses Diagnosis Hypokalemia Hypopotassemia documented in this encounter Care Teams Shell Machine Operator Relationship Specialty Start Date End Date Emil Cope MD [facility] [address] [place] [address] PCP - General Emergency Medicine 09/30/22 Emmanuel Nobles MD [facility] [place] [address] Hematology 02/07/22 Anthony Leyva MD [address] [place] [address] Gastroenterology 02/07/22 Anthony Leyva MD [address] [place] [address] Assigned Gastroenterology Provider 04/12/22 Evaristo Stack CNP [address] [place] [address] Assigned Cancer Care Provider 07/26/22 Shaila Mota, TOYA CLAMSHELL OPERATOR [address] [facility], [address] [place] [address] Assigned Heart and Vascular Provider 09/20/22 01/16/23 documented as of this encounter
--- OUTSIDE RECORDS SUMMARY | 2023-03-09 17:10 | XMS_ITS | Encounter Summary ---
Author Name Unknown Organization [place] Address [address] [facility] [place] [address] Care Team Providers Care Nursing Informatics Clinical Analyst Name Role Phone HenryciraEmmanuel MD Unavailable [phone] Anthony Leyva MD Unavailable [phone] Anthony Leyva MD Unavailable [phone] Evaristo Stack AUTHORIZATION NURSE Unavailable [phone] Shaila Mota APRN AUTHORIZATION NURSE Unavailable Emil Cope MD Primary Care Provider Reason for Visit * Reason Comments Medication Refill Encounter Details Date Type Department Care Team (Late st Contact Info) Description 11/17/2022 Refill [facility] Heart [facility] [address] [facility] [address] [place] [phone] Anthony Mazariegos MD [address] [facility] [address] [place], [place] [phone] Medication Refill Social History Tobacco Use Types [...] Recorded In the last 10 days, have [place] u been in contact with someone who was confirmed or suspected to have Coronavirus/COVID-19? No / Unsure 11/10/2022 12:45 PM CDT documented as of this encounter Plan of Treatment Upcoming Encounters Date Type Department Care Team (Late st Contact Info) Description 05/11/2023 1:30 PM CDT Virtual Visit [facility] [address] [facility] [address] [address] [place] [phone] Evaristo Stack CNP [address] [facility] [address] [place], [place] [phone] Nallely Saravia MD [address] [place], [place] [phone] documented as of this encounter Visit Diagnoses Diagnosis Permanent atrial fibrillation (H) Atrial fibrillation documented in this encounter Care Teams Nursing Informatics Clinical Analyst Relationship Specialty Start Date End Date Emil Cope MD [facility] [address] [place] [address] PCP - General Emergency Medicine 09/30/22 Emmanuel Nobles MD [facility] [place] [id number] Hematology 02/07/22 Anthony Leyva MD [address] [place] [address] Gastroenterology 02/07/22 Anthony Leyva MD [address] [place] [address] Assigned Gastroenterology Provider 04/12/22 Evaristo Stack, LANA [facility] [address] [place] [address] Assigned Cancer Care Provider 07/26/22 Shaila Mota APRN [facility] [address] [facility] [place] [address] Assigned Heart and Vascular Provider 09/20/22 01/16/23 documented as of this encounter
--- OUTSIDE RECORDS SUMMARY | 2023-03-09 17:10 | XMS_ITS | Encounter Summary ---
Author Name Unknown Organization [place] Address [facility] [place] [address] Care Team Providers Care Rodent Exterminator Name Role Phone Emmanuel Nobles MD Unavailable [phone] Anthony Leyva MD Unavailable [phone] Anthony Leyva MD Unavailable [phone] Evaristo Stack PARAMEDIC SUPERVISOR Unavailable Shaila Mota APRN PARAMEDIC SUPERVISOR Unavailable Emil Cope MD Primary Care Provider Reason for Referral * Consultation (Routine: Next available opening) - Pending Review Specialty Diagnoses / Procedures Referred By Contac t Referred To Contact Cardiovascular Disease Diagnoses Acute on chronic diastolic heart failure (H) Stage 3 chronic kidney disease, unspecified whether stage 3a or 3b CKD (H) Essential hypertension Iron malabsorption Permanent atrial fibrillation (H) VIANNEY (obstructive sleep apnea) Heart failure with preserved ejection fraction, unspecified HF chronicity (H) Chronic heart failure with preserved ejection fraction (H) Anthony Mazariegos MD [address] [facility] [address] [place] [address] Referral ID Status Reason Start Date Expiration Date V isits Requested Visits Authorized [id number] Pending Review 01/13/2023 01/13/2024 1 1 Question Answer Preferred Location: [facility] Follow-up with: Self Scheduling Instructions: [facility] will call you to coordinate your care as prescribed by your provider. If you have concerns about scheduling, please call [phone]. Comments [facility] will call you to coordinate your care as prescribed by your provider. If you have concerns about scheduling, please call [phone]. OPERATIVE TECH Reason for Visit * Reason Comments Follow Up * Consultation (Routine: Next available opening) - Pending Review Specialty Diagnoses / Procedures Referred By Contac t Referred To Contact Cardiovascular Disease Diagnoses Chronic heart failure with preserved ejection fraction (H) Shaila Mota APRN PARAMEDIC SUPERVISOR [address] [facility] [place] [address] Referral ID Status Reason Start Date Expiration Date V isits Requested Visits Authorized [id number] Pending Review 09/15/2022 09/15/2023 1 1 Encounter Details Date Type Department Care Team (Late st Contact Info) Description 01/13/2023 2:20 PM PERIOPERATIVE TECH Office Visit [facility] [address] [place] [address] Shaila Mota APRN PARAMEDIC SUPERVISOR [address] [facility] [place] [address] Anthony Mazariegos MD [address] [facility] [address] [place] [address] Acute on chronic diastolic heart failure (H); Stage 3 chronic kidney disease, unspecified whether stage 3a or 3b CKD (H); Essential hypertension; Iron malabsorption; Permanent atrial fibrillation (H); VIANNEY (obstructive sleep apnea); Heart failure with preserved ejection fraction, unspecified HF chronicity (H); Chronic heart failure with preserved ejection fraction (H) Social History Tobacco Use Types Packs/Day Years Used Date Smoking Tobacco: Never Smokeless Tobacco: Never Tobacco Cessation:Counseling Given: Not Answered Alcohol Use Standard Drinks/Week Comments Yes 0 [...] on file documented as of this encounter Last Filed Vital Signs Vital Sign Reading Time Taken Comments Blood Pressure 132/60 01/13/2023 2:03 PM PERIOPERATIVE TECH Pulse 83 01/13/2023 2:03 PM PERIOPERATIVE TECH Temperature - - Respiratory Rate 16 01/13/2023 2:03 PM PERIOPERATIVE TECH Oxygen Saturation 96% 01/13/2023 2:03 PM PERIOPERATIVE TECH Inhaled Oxygen Concentration - - Weight 110.5 kg (243 lb 8 oz) 01/13/2023 2:03 PM PERIOPERATIVE TECH Height 182.9 cm (6') 01/13/2023 2:03 PM PERIOPERATIVE TECH Body Mass Index 33.02 01/13/2023 2:03 PM PERIOPERATIVE TECH documented in this encounter Progress Notes * Anthony Mazariegos MD - 01/13/2023 2:20 PM CST Images from the original note were not included. [facility] [phone] Assessment/Recommendations Patient with heart failure with preserved ejection fraction, mild renal insufficiency, permanent atrial fibrillation appropriately anticoagulated because of elevated CHADS2 vascular score. Patient has a little bit of weight gain although I do not detect significant pulmonary vascular congestion. There may be slight crackles at the right base, no jugular venous distention but positive hepatojugular reflux. He has also had his creatinine creep up a bit. We will check a basic metabolic panel today as well as a B natruretic peptide. Based on that, we may change his diuretics briefly. He will continue to watch sodium in his diet and overall fluid intake. He will call if his weight continues to go up at which time we would have to supplement his diuretics with more metolazone. Currently takes metolazone twice a week in addition to his Bumex daily. Overall, I believe he looks good and we will continue to follow in this part of our heart failure clinic with Shaila. Thank you for allowing us to participate in his care. History of Present Illness/Subjective Mr. Tutu Ngo is a 82 year old male with known heart failure with preserved ejection fraction, mild renal insufficiency, permanent atrial fibrillation, and no known coronary artery disease with unremarkable pharmacologic nuclear study in 2019. Patient has been feeling reasonably well. He is a little bothered that his weight is creeping up. He was always in the high 230s and now is breaking into the low 240s. His says he does eat more and he admits to having a reasonably good appetite. He has not had orthopnea, paroxysmal nocturnal dyspnea, and no peripheral edema. 1 year ago when he presented with heart failure he was full of fluid with peripheral edema, marked dyspnea and he feels so much better than he did at that time. He has not had any chest discomfort, palpitations, syncope or near syncopal episodes. Physical Examination Review of Systems BP 132/60 (BP Location: Left arm, Patient Position: Sitting, Cuff Size: Adult Large) Pulse 83 Resp 16 Ht 1.829 m (6') Wt 110.5 kg (243 lb 8 oz) SpO2 96% BMI 33.02 kg/m?? Body mass index is 33.02 kg/m??. Wt Readings from Last 3 Encounters: 01/13/23 110.5 kg (243 lb 8 oz) 11/10/22 112.3 kg (247 lb 8 oz) 09/15/22 109.8 kg (242 lb) General Appearance: Alert, cooperative and in no acute distress. ENT/Mouth: [place]/moist oral mucosa EYES: no scleral icterus, normal conjunctivae Neck: JVP normal. No Hepatojugular reflux. Thyroid not visualized. Chest/Lungs: Lungs have minimal expiratory rhonchi in the mid lung mccabe but possible slight crackles at the right base, equal chest wall expansion. Cardiovascular: S1, S2 without murmur ,clicks or rubs. Brachial, radial pulses are intact and symetric. No carotid bruits noted Abdomen: Nontender. BS+. Extremities: No cyanosis, clubbing or edema Skin: no xanthelasma, warm. Neurologic: normal arm movement bilateral, no tremors Psychiatric: Appropriate affect. Enc Vitals BP: 132/60 Pulse: 83 Resp: 16 SpO2: 96 % Weight: 110.5 kg (243 lb 8 oz) Height: 182.9 cm (6') Medical History Surgical History Family History Social History Past Medical History: Diagnosis Date Anesthesia complication [...] KNEE LEFT; Surgeon: Eric Pepper MD; Location: [facility] OR CAPSULE/PILL CAM ENDOSCOPY N/A 01/14/2022 Procedure: IMAGING PROCEDURE, GI TRACT, INTRALUMINAL, VIA CAPSULE; Surgeon: Jeb Burr MD;Location: [facility] GI COLONOSCOPY N/A 12/13/2021 Procedure: COLONOSCOPY WITH POLYPECTOMY AND CLIP PLACEMENT; Surgeon: Jose Alberto Diallo MD; Location: [facility] OR ESOPHAGOSCOPY, GASTROSCOPY, DUODENOSCOPY (EGD), COMBINED N/A 12/13/2021 Procedure: ESOPHAGOGASTRODUODENOSCOPY (EGD) WITH BIOPSIES; Surgeon: Jose Alberto Diallo MD; Location: [facility] Main OR HERNIA REPAIR left nephrectomy[ RELEASE CARPAL TUNNEL BILATERAL right total knee arthroplasty[ Family History Problem Relation Age of Onset Cancer Mother Lymphoma Other - See Comments Father ALS Thrombophilia Other Brother and sister Liver Disease No family hx of Social History Socioeconomic History Marital status: Spouse name: Not on file Number of children: Not on file Years of education: Not on file Highest education level: Not on file Occupational History Not on file Tobacco Use Smoking status: Never Smokeless tobacco: Never Vaping Use Vaping Use: Never used Substance and Sexual Activity Alcohol use: Yes Comment: very rare Drug use: No Sexual activity: Not Currently Other Topics Concern Parent/sibling w/ CABG, PR or angioplasty before 65F 55M? Not Asked Social History Narrative Not on file Social Determinants of Health Financial Resource Strain: Not on file Food Insecurity: Not on file Transportation Needs: Not on file Physical Activity: Not on file Stress: Not on file Social Connections: Not on file Interpersonal Safety: Not on file Housing Stability: Not on file Medications Allergies Current Outpatient Medications Medication Sig Dispense Refill allopurinol (ZYLOPRIM) 100 MG tablet Take 200 mg by mouth daily apixaban ANTICOAGULANT (ELIQUIS ANTICOAGULANT) 5 MG tablet TAKE 1 TABLET (5 MG) BY MOUTH 2 TIMES DAILY 60 tablet 4 bumetanide (BUMEX) 2 MG tablet Take 1 tablet (2 mg) by mouth 2 times daily (Water pill for heart) 180 tablet 3 ciclopirox (LOPROX) 0.77 % cream Apply topically 2 times daily desoximetasone (TOPICORT) 0.25 % external cream APPLY TOPICALLY TWICE A DAY NEEDED empagliflozin (JARDIANCE) 10 MG TABS tablet Take 1 tablet (10 mg) by mouth daily (For heart muscle)90 tablet 3 Glucosamine-Chondroitin (COSAMIN DS PO) Take by mouth 2 times daily Cosamin DS 500/400 mg metolazone (ZAROXOLYN) 2.5 MG tablet Take 1 tablet twice weekly 24 tablet 4 potassium chloride ER (KLOR-CON M) 10 MEQ CR tablet TAKE 4 TABLETS (40 MEQ) BY MOUTH DAILY 120 tablet 2 tamsulosin (FLOMAX) 0.4 MG capsule Take 0.4 mg by mouth daily Allergies Allergen Reactions Furosemide Rash Folic Acid Diarrhea Claims to folic acid intolerant, causes diarrhea. Norvasc [Amlodipine Besylate] Swelling of right leg Lab Results Chemistry/lipid CBC Cardiac Enzymes/BNP/TSH/INR Lab Results Component Value Date TRIG 114 11/26/2021 BUN 40 (H) 09/15/2022 NA 139 09/15/2022 CO2 31 09/15/2022 Lab Results Component Value Date WBC 10.9 07/17/2022 HGB 12.4 (L) 07/17/2022 HCT 37.2 (L) 07/17/2022 MCV 95 07/17/2022 PLT 177 07/17/2022 Lab Results Component Value Date TSH 1.56 12/16/2021 INR 1.67 (H) 12/12/2021 OPERATIVE TECH documented in this encounter Plan of Treatment Upcoming Encounters Date Type Department Care Team (Late st Contact Info) Description 05/11/2023 1:30 PM CDT Virtual Visit [facility] [address] [place] [address] Evaristo Stack CNP [address] [place] [address] [address] [place] [address] Nallely Saravia MD [address] [place] [address] Scheduled Referrals Name Type Priority Associated Diagnoses Orde r Schedule Follow-Up with Cardiology Referral Routine: Next available opening Acute on chronic diastolic heart failure (H) Stage 3 chronic kidney disease, unspecified whether stage 3a or 3b CKD (H) Essential hypertension Iron malabsorption Permanent atrial fibrillation (H) VIANNEY (obstructive sleep apnea) Heart failure with preserved ejection fraction, unspecified HF chronicity (H) Chronic heart failure with preserved ejection fraction (H) Expected: 06/17/2023 (Approximate), Expires: 01/14/2024 documented as of this encounter Procedures Procedure Name Priority Date/Time Associated Diagnosis Comments N TERMINAL PRO BNP OUTPATIENT Routine 01/13/2023 2:51 PM PERIOPERATIVE TECH Acute on chronic diastolic heart failure (H) Stage 3 chronic kidney disease, unspecified whether stage 3a or 3b CKD (H) Essential hypertension Iron malabsorption Permanent atrial fibrillation (H) VIANNEY (obstructive sleep apnea) Heart failure with preserved ejection fraction, unspecified HF chronicity (H) Chronic heart failure with preserved ejection fraction (H) BASIC METABOLIC PANEL Routine 01/13/2023 2:51 PM PERIOPERATIVE TECH Acute on chronic diastolic heart failure (H) Stage 3 chronic kidney disease, unspecified whether stage 3a or 3b CKD (H) Essential hypertension Iron malabsorption Permanent atrial fibrillation (H) VIANNEY (obstructive sleep apnea) Heart failure with preserved ejection fraction, unspecified HF chronicity (H) Chronic heart failure with preserved ejection fraction (H) documented in this encounter Results * (ABNORMAL) Basic metabolic panel (01/13/2023 2:51 PM PERIOPERATIVE TECH) [facility] Sodium 139 135 - 145 mmol/L 01/13/2023 4:53 PM [facility] Comment:Reference intervals for this test were updated on 11/25/2022 to more accurately reflect our healthy population. There may be differences in the flagging of prior results with similar values performed with this method. Interpretation of those prior results can be made in the context of the updated reference intervals. Potassium 3.7 3.4 - 5.3 mmol/L 01/13/2023 4:53 PM PERIOPERATIVE TECH [facility] Chloride 94(L) 98 - 107 mmol/L 01/13/2023 4:53 PM [facility] Carbon Dioxide (CO2) 32(H) 22 - 29 mmol/L 01/13/2023 4:53 PM [facility] Anion Gap 13 7 - 15 mmol/L 01/13/2023 4:53 PM [facility] Urea Nitrogen 39.2(H) 8.0 - 23.0 mg/dL 01/13/2023 4:53 PM [facility] Creatinine 2.25(H) 0.67 - 1.17 mg/dL 01/13/2023 4:53 PM [facility] GFR Estimate 29(L) >60 mL/min/1. 73m2 01/13/2023 4:53 PM [facility] Calcium 11.2(H) 8.8 - 10.2 mg/dL 01/13/2023 4:53 PM [facility] Glucose 94 70 - 99 mg/dL 01/13/2023 4:53 PM [facility] Blood STRUCTURE OF LEFT UPPER LIMB / Unknown Venipuncture / Unknown 01/13/2023 2:51 PM PERIOPERATIVE TECH 01/13/2023 4:22 PM PERIOPERATIVE TECH Anthony Mazariegos MD LAB - BLOOD ORDERABL ES [facility] [address] [place] [address], [facility] [phone] * (ABNORMAL) N terminal pro BNP outpatient (01/13/2023 2:51 PM PERIOPERATIVE TECH) N Terminal Pro BNP Outpatient 2,066(H) 0 - 1,800 pg/mL 01/13/2023 4:53 PM [facility] Comment: Reference range shown and results flagged as abnormal are for the outpatient, non acute settings. Establishing a baseline value for each individual patient is useful for follow-up. Suggested inpatient cut points for confirming diagnosis of CHF in an acute setting are: >450 pg/mL (age 18 to less than 50) >900 pg/mL (age 50 to less than 75) >1800 pg/mL (75 yrs and older) An inpatient or emergency department NT-proPBNP <300 pg/mL effectively rules out acute CHF, with 99% negative predictive value. Blood STRUCTURE OF LEFT UPPER LIMB / Unknown Venipuncture / Unknown 01/13/2023 2:51 PM PERIOPERATIVE TECH 01/13/2023 4:22 PM PERIOPERATIVE TECH Anthony Mazariegos MD LAB - BLOOD ORDERABL ES [facility] [address] [address] [phone] documented in this encounter Visit Diagnoses Diagnosis Acute on chronic diastolic heart failure (H) Acute on chronic diastolic heart failure Stage 3 chronic kidney disease, unspecified whether stage 3a or 3b CKD (H) Essential hypertension Unspecified essential hypertension Iron malabsorption Other specified intestinal malabsorption Permanent atrial fibrillation (H) Atrial fibrillation VIANNEY (obstructive sleep apnea) Obstructive sleep apnea (adult) (pediatric) Heart failure with preserved ejection fraction, unspecified HF chronicity (H) Chronic heart failure with preserved ejection fraction (H) documented in this encounter Care Teams Rodent Exterminator Relationship Specialty Start Date End Date Emil Cope MD [facility] [address] [place] [address] PCP - General Emergency Medicine 09/30/22 Emmanuel Nobles MD [address] [place] [address] Hematology 02/07/22 Anthony Leyva MD [address] [place] [address] Gastroenterology 02/07/22 Anthony Leyva MD [address] [place] [address] Assigned Gastroenterology Provider 04/12/22 Evaristo Stack, PARAMEDIC SUPERVISOR [address] [place] [address] Assigned Cancer Care Provider 07/26/22 Shaila Mota APRN PARAMEDIC SUPERVISOR [address] [facility] [place] [address] Assigned Heart and Vascular Provider 09/20/22 01/16/23 documented as of this encounter
--- OUTSIDE RECORDS SUMMARY | 2023-03-09 17:10 | XMS_ITS | Encounter Summary ---
Author Name Unknown Organization [place] Address [address] [facility] [place] [address] Care Team Providers Care Staff Nuclear Medicine Technologist Name Role Phone Emmanuel Nobles MD Unavailable [phone] Anthony Leyva MD Unavailable [phone] Anthony Leyva MD Unavailable Evaristo Stack CNP Unavailable Emil Cope MD Primary Care Provider Anthony Mazariegos MD Unavailable [phone] Reason for Visit * Reason Onset Date Comments Direct Oral Anticoagulant 02/04/2023 Encounter Details Date Type Department Care Team (Late st Contact Info) Description 02/04/2023 Telephone [facility] [address] [place] [id number] Leona Hargrove RN Direct Oral Anticoagulant Social History Tobacco Use Types Packs/Day Years [...] on file documented as of this encounter Miscellaneous Notes * Telephone Encounter - Vijaya Akins RN - 02/19/2023 2:18 PM PUBLIC RELATIONS SUPERVISOR ANTICOAGULATION [employer] Spoke with Tutu to review advised dosage change for Apixaban (Eliquis). Education provided: how to take apixaban (Eilquis) safely: take doses as close to every 12 hours aspossible; at the same time each day, may split tablets in order to start new dose & finish current supply of medication., what to do in the event of a missed dose, and patient has been on this medication and does not have any questions. They verbalized understanding of new Eliquis dose/tablet strength Patient states he has been contacted by the pharmacy to picking tech the Rx of 5 mg Eliquis tablets. Called patient's pharmacy and advised of the dose change. The 5 mg dose of Eliquis has been cancelled. Vijaya Akins RN [facility] IC RELATIONS SUPERVISOR * Telephone Encounter - Yamileth Cruz RPH - 02/11/2023 9:48 AM CST Images from the original note were not included. Anthony Mazariegos MD You2 days ago TJ Yes, please reduce the dose. Thank you, Anthony IC RELATIONS SUPERVISOR * Telephone Encounter - Leona Hargrove RN - 02/04/2023 12:33 PM CST ANTICOAGULATION DIRECT ORAL ANTICOAGULANT MONITORING SUBJECTIVE The [facility] is evaluating Tutu Abdi Huber's Apixaban (Eliquis) as part of its Anticoagulation Monitoring Program. Indication: Atrial Fibrillation Current dose per medication list: Apixaban 5 mg BID On therapy since: 12/19/21 Recent hospitalizations/ED/Office Visits for bleeding/clotting concerns: No Other bleeding or side effect concerns: No Additional findings: OBJECTIVE Age: [age] year old Wt Readings from Last 2 Encounters: 01/13/23 110.5 kg (243 lb 8 oz) 11/10/22 112.3 kg (247 lb 8 oz) Lab Results Component Value Date CR 2.25 (H) 01/13/2023 CR 2.43 (H) 09/15/2022 CR 2.34 (H) 08/18/2022 Lab Results Component Value Date HGB 12.4 07/17/2022 HGB 12.4 03/31/2013 PLT 177 07/17/2022 ASSESSMENT/PLAN A chart review for Direct Oral Anticoagulant (DOAC) Stewardship has been completed for: Dosing: recommend adjustment to Apixaban 2.5 mg BID for age >= 80 years and creatinine >= 1.5mg/dL (consistent with package insert dosing) Plan made with [facility] Pharmacist Yamileth Hargrove, RN Anticoagulation Clinic IC RELATIONS SUPERVISOR documented in this encounter Plan of Treatment Upcoming Encounters Date Type Department Care Team (Late st Contact Info) Description 05/11/2023 1:30 PM CDT Virtual Visit [facility] [address] [facility] [address] [place] [phone] Evaristo Stack, LANA [address] [facility] [address] [place], [place] [phone] Nallely Saravia MD [address] [place], [place] [phone] documented as of this encounter Visit Diagnoses Diagnosis Permanent atrial fibrillation (H)- Primary Atrial fibrillation documented in this encounter Care Teams Staff Nuclear Medicine Technologist Relationship Specialty Start Date End Date Emil Cope MD [facility] [address] [place] [address] PCP - General Emergency Medicine 09/30/22 Emmanuel Nobles MD [address] [place] [address] [place], [place] [phone] Hematology 02/07/22 Anthony Leyva MD [address] [place] [address] Gastroenterology 02/07/22 Anthony Leyva MD [address] [place] [address] Assigned Gastroenterology Provider 04/12/22 Evaristo Stack CNP [address] [facility] [address] [place], [place] [phone] Assigned Cancer Care Provider 07/26/22 Anthony Mazariegos MD [address] [facility] [address] [place], [place] [id number] Assigned Heart and Vascular Provider 01/17/23 documented as of this encounter
--- OUTSIDE RECORDS SUMMARY | 2023-03-09 17:10 | XMS_ITS | Encounter Summary ---
Author Name Unknown Organization [place] Address [address] [facility] [place] [address] Care Team Providers Care Oriental Medicine Practitioner Name Role Phone HenryciraEmmanuel MD Unavailable [phone] Anthony Leyva MD Unavailable [phone] Anthony Leyva MD Unavailable Evaristo Stack CHEF ASSISTANT Unavailable [phone] Shaila Mota APRN CHEF ASSISTANT Unavailable Emil Cope MD Primary Care Provider Encounter Details Date Type Department Care Team (Late st Contact Info) Description 01/14/2023 [facility] [place] [address] [facility] [address] [place] [phone] Estela Adam Acute on chronic diastolic heart failure (H) (Primary Dx) Social History Tobacco Use Types Packs/Day Years [...] Description 05/11/2023 1:30 PM CDT Virtual Visit [facility] [address] [place] [phone] Evaristo Stack CNP [address] [place], [place] [phone] Nallely Saravia MD [address] [place], [place] [phone] Scheduled Orders Name Type Priority Associated Diagnoses Orde r Schedule Basic metabolic panel Lab Routine Acute on chronic diastolic heart failure (H) Expected: 01/14/2023 (Approximate), Expires: 01/15/2024 documented as of this encounter Visit Diagnoses Diagnosis Acute on chronic diastolic heart failure (H)- Primary Acute on chronic diastolic heart failure documented in this encounter Care Teams Oriental Medicine Practitioner Relationship Specialty Start Date End Date Emil Cope MD [facility] [address] [place] [address] PCP - General Emergency Medicine 09/30/22 Emmanuel Nobles MD [address] [place] [address] Hematology 02/07/22 Anthony Leyva MD [address] [place] [address] Gastroenterology 02/07/22 Anthony Leyva MD [address] [place] [address] Assigned Gastroenterology Provider 04/12/22 Evaristo Stack CNP [address] [place] [address] Assigned Cancer Care Provider 07/26/22 Shaila Mota, TOYA CHEF ASSISTANT [address] [facility] [place] [address] Assigned Heart and Vascular Provider 09/20/22 01/16/23 documented as of this encounter
--- OUTSIDE RECORDS SUMMARY | 2023-03-09 17:10 | XMS_ITS | Encounter Summary ---
Author Name Unknown Organization [place] Address [address] [place] [address] Care Team Providers Care Comic Book Artist Name Role Phone Emmanuel Nobles MD Unavailable [phone] Anthony Leyva MD Unavailable + [phone] Anthony Leyva MD Unavailable Evaristo Stack CNP Unavailable Emil Cope MD Primary Care Provider Anthony Mazariegos MD Unavailable Reason for Visit * Reason Comments Medication Refill Encounter Details Date Type Department Care Team (Late st Contact Info) Description 02/17/2023 Refill [place] [id number] [facility] [address] [place] [address] Anthony Mazariegos MD [address] [facility] 200 [place] [address] Medication Refill Social History Tobacco Use Types [...] Description 05/11/2023 1:30 PM CDT Virtual Visit [facility] [address] [facility] [employer] [address] [place] [phone] Evaristo Stack CNP [address] [place] [address] Nallely Saravia MD [address] [place] [address] documented as of this encounter Visit Diagnoses Not on filedocumented in this encounter Care Teams Comic Book Artist Relationship Specialty Start Date End Date Emil Cope MD [facility] [address] [place] [address] PCP - General Emergency Medicine 09/30/22 Emmanuel Nobles MD [facility] [place] [address] Hematology 02/07/22 Anthony Leyva MD [address] [place] [address] Gastroenterology 02/07/22 Anthony Leyva MD [address] [place] [address] Assigned Gastroenterology Provider 04/12/22 Evaristo Stack CNP [address] [place] [address] Assigned Cancer Care Provider 07/26/22 Anthony Mazariegos MD [address] [place] [address] [address] [place] [address] Assigned Heart and Vascular Provider 01/17/23 documented as of this encounter
--- OUTSIDE RECORDS SUMMARY | 2023-03-09 17:10 | XMS_ITS | Clinical Summary ---
Author Name Unknown Organization [place] Address [address] [place] [address] Care Team Providers Care Agents' Records Clerk Name Role Phone Emmanuel Nobles MD Unavailable [phone] Anthony Leyva MD Unavailable [phone] Anthony Leyva MD Unavailable [phone] Evaristo Stack CNP Unavailable [phone] Emil Cope MD Primary Care Provider Anthony Mazariegos MD Unavailable [phone] Allergies Active Allergy Reactions Criticality Noted Date Comments Folic Acid Diarrhea 08/24/2012 Claims to folic acid intolerant, causes diarrhea. Furosemide Rash Medium 01/13/2019 Amlodipine Besylate 12/14/2010 Swelling of right leg Medications Medication Sig Dispensed Refills Start Date End Date Status Glucosamine-Chondro itin (COSAMIN DS PO) Take by mouth 2 times daily Cosamin DS 500/400 mg 0 Active allopurinol (ZYLOPRIM) 100 MG tablet Take 200 mg by mouth daily 0 Active tamsulosin (FLOMAX) 0.4 MG capsule Take 0.4 mg by mouth daily 0 Active desoximetasone (TOPICORT) 0.25 % external cream APPLY TOPICALLY TWICE A DAY NEEDED 0 12/30/2021 Active ciclopirox (LOPROX) 0.77 % cream Apply topically 2 times daily 0 Active bumetanide (BUMEX) 2 MG tabletIndications:C hronic heart failure with preserved ejection fraction (H) Take 1 tablet (2 mg) by mouth 2 times daily (Water pill for heart) 180 tablet 3 05/12/2022 Active empagliflozin (JARDIANCE) 10 MG TABS tabletIndications:C hronic heart failure with preserved ejection fraction (H) Take 1 tablet (10 mg) by mouth daily (For heart muscle) 90 tablet 3 05/12/2022 Active metolazone (ZAROXOLYN) 2.5 MG tabletIndications:C hronic heart failure with preserved ejection fraction (H) Take 1 tablet twice weekly 24 tablet 4 09/15/2022 Active potassium chloride ER (KLOR-CON M) 10 MEQ CR tabletIndications:H ypokalemia TAKE 4 TABLETS (40 MEQ) BY MOUTH DAILY 120 tablet 2 01/16/2023 Active apixaban ANTICOAGULANT (ELIQUIS) 2.5 MG tabletIndications:P ermanent atrial fibrillation (H) Take 1 tablet (2.5 mg) by mouth 2 times daily 60 tablet 2 02/20/2023 Active apixaban ANTICOAGULANT (ELIQUIS ANTICOAGULANT) 5 MG tabletIndications:P ermanent atrial fibrillation (H) TAKE 1 TABLET (5 MG) BY MOUTH 2 TIMES DAILY 60 tablet 4 11/17/2022 3 Discontinue d(Dose adjustment) Active Problems Problem Noted Date Diagnosed Date VIANNEY (obstructive sleep apnea) 02/03/2022 Permanent atrial fibrillation 02/03/2022 (HFpEF) heart failure with preserved ejection fr action 01/07/2022 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 Post-op serum creatinine 02/17/11 1.98 mg/dl. CKD (chronic kidney disease) stage 3, GFR 30-59 ml/min 09/17/2010 Hyperlipidemia 08/05/2009 Essential hypertension 11/30/2006 Encounters Date Type Department Care Team Description 02/17/[address] [place] [address] Anthony Mazariegos MD Medication Refill 02/04/2023 Telephone [facility] Anticoagulation Clinic [address] [place] [phone] Leona Hargrove RN Direct Oral Anticoagulant 01/15/[address] [place] [address] Anthony Mazariegos MD Medication Refill 01/14/2023 Orders Only [facility] Heart [address] [place] [address] Estela Adam Acute on chronic diastolic heart failure (H) (Primary Dx) 01/13/2023 2:20 PM WELDER Office Visit [address] [place] [address] Shaila Mota, FISCAL ASSISTANT PILE HEADER Anthony Mazariegos MD Acute on chronic diastolic heart failure (H); Stage 3 chronic kidney disease, unspecified whether stage 3a or 3b CKD (H); Essential hypertension; Iron malabsorption; Permanent atrial fibrillation (H); VIANNEY (obstructive sleep apnea); Heart failure with preserved ejection fraction, unspecified HF chronicity (H); Chronic heart failure with preserved ejection fraction (H) 01/13/2023 Travel from Last 3 Months Immunizations Name Administration Dates Next Due COVID-19 MONOVALENT 12+ (Pfizer) 022,01/17/2021,05/01/2020,04/10/19 21 Influenza Vaccine 65+ (Fluzone HD) 12/20(Deferred: - REFUSED),01/17/2021 Pneumo Conj 13-V (2010&after) 11/15/2020 TDAP (Adacel,Boostrix) 08/20/2017 Td (Adult), Adsorbed 07/21/1996 Family History Medical History Relation Comments Other - See Comments Father ALS Cancer Mother Lymphoma Thrombophilia Other Brother and sist er Liver Disease No family hx of Relation Status Comments Father Mother Other Social History Tobacco Use Types Packs/Day Years [...] on file Sexual Orientation Not on file Last Filed Vital Signs Vital Sign Reading Time Taken Comments Blood Pressure 132/60 01/13/2023 2:03 PM WELDER Pulse 83 01/13/2023 2:03 PM WELDER Temperature 36.8 ??C (98.3 ??F) 07/17/2022 2:06 PM CD T Respiratory Rate 16 01/13/2023 2:03 PM WELDER Oxygen Saturation 96% 01/13/2023 2:03 PM WELDER Inhaled Oxygen Concentration - - Weight 110.5 kg (243 lb 8 oz) 01/13/2023 2:03 PM WELDER Height 182.9 cm (6') 01/13/2023 2:03 PM WELDER Body Mass Index 33.02 01/13/2023 2:03 PM WELDER Plan of Treatment Upcoming Encounters Date Type Department Care Team (Late st Contact Info) Description 05/11/2023 1:30 PM CDT Virtual Visit [facility] [address] [facility] [address] [place] [address] Evaristo Stack, LANA [address] [facility] [address] [place], [place] [phone] Nallely Saravia MD [address] [place] [address] Health Maintenance Due Date Last Done Comments ADVANCE CARE PLANNING 1942 ANNUAL REVIEW OF HM ORDERS 1942 HF ACTION PLAN 1942 MICROALBUMIN 1942 URINALYSIS 08/26/1943 HEPATITIS A IMMUNIZATION (1 of 2 - Risk 2-dose series) 1961 ZOSTER IMMUNIZATION (1 of 2) 1992 HEPATITIS B IMMUNIZATION (1 of 3 - Risk 3-dose series) 2002 RSV VACCINE ( & 60+) (1 - 1-dose 60+ series) 2002 MEDICARE ANNUAL WELLNESS VISIT 08/26/2007 Pneumococcal Vaccine: 65+ Years (2 of 2 - PPSV23 or PCV20) 01/10/2021 11/15/2020 COVID-19 Vaccine ( - season) 2022 07/23/2021, 01/17/2021, 05/01/2020, Additional history exists INFLUENZA VACCINE (#1) 2022 01/17/2021 LIPID 11/26/2022 11/26/2021 PHQ-2 (once per calendar year) 2023 04/03/2022 BMP 07/14/2023 01/13/2023, 08/30, 08/18/2022, Additional history exists ALT 07/18/2023 07/17/2022, 03/04, 01/31/2022, Additional history exists CBC 07/18/2023 07/17/2022, 0 07/2022, 01/31/2022, Additional history exists FALL RISK ASSESSMENT 07/18/2023 07/17/2022 HEMOGLOBIN 07/18/2023 07/17/2022, 0 07/2022, 01/31/2022, Additional history exists DTAP/TDAP/TD IMMUNIZATION (2 - Td or Tdap) 08/21/2027 08/20/2017, 07/21/1996 COLONOSCOPY Discontinued 12/13/2021, 12/13/2021 COLORECTAL CANCER SCREENING Discontinued TSH W/FREE T4 REFLEX Completed 12/16/2021 CT COLONOGRAPHY Discontinued FIT Discontinued FLEX SIG Discontinued HPV IMMUNIZATION Aged Out No longer e ligible based on patient's age to complete this topic IPV IMMUNIZATION Aged Out No longer e ligible based on patient's age to complete this topic MENINGITIS IMMUNIZATION Aged Out No l onger eligible based on patient's age to complete this topic RSV MONOCLONAL ANTIBODY Aged Out No l onger eligible based on patient's age to complete this topic sDNA (Cologuard) Discontinued Medical Devices Implanted Type Area Firebreak Cutter Device Identifier Shelf Expiration Date Model / Serial / Lot Imp Insert Tibial Howm Tri 6x09mm [id number] Implanted:Qty: 1 on 03/29/2013 by Eric Pepper MD at [facility] Left: Knee [email or web address] 01/29/2018 [id number] / / MMRPHT Procedures Procedure Name Priority Date/Time Associated Diagnosis Comments N TERMINAL PRO BNP OUTPATIENT Routine 01/13/2023 2:51 PM WELDER Acute on chronic diastolic heart failure (H) Stage 3 chronic kidney disease, unspecified whether stage 3a or 3b CKD (H) Essential hypertension Iron malabsorption Permanent atrial fibrillation (H) VIANNEY (obstructive sleep apnea) Heart failure with preserved ejection fraction, unspecified HF chronicity (H) Chronic heart failure with preserved ejection fraction (H) BASIC METABOLIC PANEL Routine 01/13/2023 2:51 PM WELDER Acute on chronic diastolic heart failure (H) Stage 3 chronic kidney disease, unspecified whether stage 3a or 3b CKD (H) Essential hypertension Iron malabsorption Permanent atrial fibrillation (H) VIANNEY (obstructive sleep apnea) Heart failure with preserved ejection fraction, unspecified HF chronicity (H) Chronic heart failure with preserved ejection fraction (H) from Last 3 Months Results * (ABNORMAL) N terminal pro BNP outpatient (01/13/2023 2:51 PM WELDER) [facility] N Terminal Pro BNP Outpatient 2,066(H) 0 - 1,800 pg/mL 01/13/2023 4:53 PM WELDER [facility] Comment: Reference range shown and results [...] Unknown Venipuncture / Unknown 01/13/2023 2:51 PM WELDER 01/13/2023 4:22 PM WELDER Anthony Mazariegos MD LAB - BLOOD ORDERABL ES [facility] [address] [facility] [place] [address], [place] [phone] * (ABNORMAL) Basic metabolic panel (01/13/2023 2:51 PM WELDER) Sodium 139 135 - 145 mmol/L 01/13/2023 4:53 PM [facility] Comment:Reference intervals for this test were updated on 11/25/2022 to more accurately reflect our healthy population. There may be differences in the flagging of prior results with similar values performed with this method. Interpretation of those prior results can be made in the context of the updated reference intervals. Potassium 3.7 3.4 - 5.3 mmol/L 01/13/2023 4:53 PM [facility] Chloride 94(L) 98 - 107 mmol/L 01/13/2023 4:53 PM [facility] Carbon Dioxide (CO2) 32(H) 22 - 29 mmol/L 01/13/2023 4:53 PM [facility] Anion Gap 13 7 - 15 mmol/L 01/13/2023 4:53 PM [facility] Urea Nitrogen 39.2(H) 8.0 - 23.0 mg/dL 01/13/2023 4:53 PM [facility] Creatinine 2.25(H) 0.67 - 1.17 mg/dL 01/13/2023 4:53 PM [facility] GFR Estimate 29(L) >60 mL/min/1. 73m2 01/13/2023 4:53 PM [facility] Calcium 11.2(H) 8.8 - 10.2 mg/dL 01/13/2023 4:53 PM WELDER [facility] Glucose 94 70 - 99 mg/dL 01/13/2023 4:53 PM WELDER [facility] Blood STRUCTURE OF LEFT UPPER LIMB / Unknown Venipuncture / Unknown 01/13/2023 2:51 PM WELDER 01/13/2023 4:22 PM WELDER Anthony Mazariegos MD LAB - BLOOD ORDERABL ES [facility] [address] [facility] [place] [address], [place] [phone] from Last 3 Months Advance Directives For more information, please contact: [phone] Latest Code Status on File Code Status Date Activated Date Inactivated Comments Full Code 12/12/2021 1:28 PM 12/20/2021 3:31 PM All basic and advanced life-sustaining interventions are performed as appropriate Question Answer Comments Code status determined by: Discussion with patient/ legal decision maker Code Status History Code Status Date Activated Date Inactivated Comments Full Code 03/29/2013 6:39 PM 03/31/2013 5:03 PM Care Teams Agents' Records Clerk Relationship Specialty Start Date End Date Emil Cope MD [facility] [address] [place] [address] PCP - General Emergency Medicine 09/30/22 Emmanuel Nobles MD [address] [place] [address] Hematology 02/07/22 Anthony Leyva MD [address] [place] [address] Gastroenterology 02/07/22 Anthony Leyva MD [address] [place] [address] Assigned Gastroenterology Provider 04/12/22 Evaristo Stack CNP [address] [facility] [address] [place] [address] Assigned Cancer Care Provider 07/26/22 Anthony Mazariegos MD [address] [facility] 200 [place] [address] Assigned Heart and Vascular Provider 01/17/23
--- OUTSIDE RECORDS SUMMARY | 2023-03-09 17:10 | XMS_ITS | Encounter Summary ---
Author Name Unknown Organization [place] Address [address] [facility] [place] [address] Care Team Providers Care Deli Slicer Name Role Phone HenryciraEmmanuel MD Unavailable [phone] Anthony Leyva MD Unavailable [phone] Anthony Leyva MD Unavailable [phone] Evaristo Stack JAVA LEAD ENGINEER Unavailable [phone] Shaila Mota APRN JAVA LEAD ENGINEER Unavailable Emil Cope MD Primary Care Provider Encounter Details Date Type Department Care Team (Latest Contact Info) Description 01/13/2023 Travel Social History Tobacco Use Types Packs/Day Years [...] Description 05/11/2023 1:30 PM CDT Virtual Visit [address] [place] [address] Evaristo Stack, JAVA LEAD ENGINEER [facility] [place] [address] Nallely Saravia MD [address] [place] [address] documented as of this encounter Visit Diagnoses Not on filedocumented in this encounter Care Teams Deli Slicer Relationship Specialty Start Date End Date Emil Cope MD [facility] [address] [place] [address] PCP - General Emergency Medicine 09/30/22 Emmanuel Nobles MD [address] [place] [address] Hematology 02/07/22 Anthony Leyva MD [address] [place] [address] Gastroenterology 02/07/22 Anthony Leyva MD [address] [place] [address] Assigned Gastroenterology Provider 04/12/22 Evaristo Stack CNP [address] [place] [address] Assigned Cancer Care Provider 07/26/22 Shaila Mota APRN JAVA LEAD ENGINEER [address] [facility], [address] [place] [address] Assigned Heart and Vascular Provider 09/20/22 01/16/23 documented as of this encounter
--- OUTSIDE RECORDS SUMMARY | 2023-03-09 17:10 | XMS_ITS | Referral Summary ---
Author Name Unknown Organization [place] Address [address] [facility] [place] [address] Care Team Providers Care Echo Tech Name Role Phone Emmanuel Nobles MD Unavailable [phone] Anthony Leyva MD Unavailable [phone] Anthony Leyva MD Unavailable [phone] Evaristo Stack CNP Unavailable Emil Cope MD Primary Care Provider Anthony Mazariegos MD Unavailable Encounters Date Type Department Care Team Description 02/17/2023 Refill M [address] [place] [address] Anthony Mazariegos MD Medication Refill 02/04/[address] [facility] Anticoagulation Clinic [address] [place] [phone] Leona Hargrove, RN Direct Oral Anticoagulant 01/15/2023 Refill M [address] [place] [address] Anthony Mazariegos MD Medication Refill 01/14/2023 Orders Only [facility] [address] [facility] [address] [place] [address] Estela Adam Acute on chronic diastolic heart failure (H) (Primary Dx) 01/13/2023 Travel 01/13/2023 2:20 PM ELECTRICAL TECH Office Visit [facility] [address] [facility] [address] [place] [phone] Shaila Mota APRN CNP Johnson, Thomas H, MD Acute on chronic diastolic heart failure (H); Stage 3 chronic kidney disease, unspecified whether stage 3a or 3b CKD (H); Essential hypertension; Iron malabsorption; Permanent atrial fibrillation (H); VIANNEY (obstructive sleep apnea); Heart failure with preserved ejection fraction, unspecified HF chronicity (H); Chronic heart failure with preserved ejection fraction (H) from Last 3 Months Allergies Active Allergy Reactions Criticality Noted Date [...] Incidentally noted on CT scan 11/2021 @ Iron deficiency anemia due to chronic blood [...] ml/min 09/17/2010 Hyperlipidemia 08/05/2009 Essential hypertension 11/30/2006 Immunizations Name Administration Dates Next Due COVID-19 MONOVALENT 12+ (Pfizer) 022,01/17/2021,05/01/2020,04/10/19 Influenza Vaccine 65+ (Fluzone HD) 12/20(Deferred: - REFUSED),01/17/2021 Pneumo Conj 13-V (2010&after) 11/15/2020 TDAP (Adacel,Boostrix) 08/20/2017 Td (Adult), Adsorbed 07/21/1996 Social History Tobacco Use Types Packs/Day Years [...] Comments Blood Pressure 132/60 01/13/2023 2:03 PM ELECTRICAL TECH Pulse 83 01/13/2023 2:03 PM ELECTRICAL TECH Temperature 36.8 ??C (98.3 ??F) 07/17/2022 2:06 PM CD T Respiratory Rate 16 01/13/2023 2:03 PM ELECTRICAL TECH Oxygen Saturation 96% 01/13/2023 2:03 PM ELECTRICAL TECH Inhaled Oxygen Concentration - - Weight 110.5 kg (243 lb 8 oz) 01/13/2023 2:03 PM ELECTRICAL TECH Height 182.9 cm (6') 01/13/2023 2:03 PM ELECTRICAL TECH Body Mass Index 33.02 01/13/2023 2:03 PM ELECTRICAL TECH Plan of Treatment Upcoming Encounters Date Type Department Care Team (Late st Contact Info) Description 05/11/2023 1:30 PM CDT Virtual Visit [facility] [address] [facility] [address] [place] [address] Evaristo Stack, LANA [address] [facility] [address] [place] [address] Nallely Saravia MD [address] [place], [place] [id number] Medical Devices Implanted Type Area Driver Manager Device Identifier Shelf Expiration Date Model / Serial / Lot Imp Insert Tibial Howm Tri 6x09mm [id number] Implanted:Qty: 1 on 03/29/2013 by Eric Pepper MD at [facility] Left: Knee [employer] 01/29/2018 [id number] / / MMRPHT Procedures Procedure Name Priority Date/Time Associated Diagnosis Comments N TERMINAL PRO BNP OUTPATIENT Routine 01/13/2023 2:51 PM ELECTRICAL TECH Acute on chronic diastolic heart failure (H) Stage 3 chronic kidney disease, unspecified whether stage 3a or 3b CKD (H) Essential hypertension Iron malabsorption Permanent atrial fibrillation (H) VIANNEY (obstructive sleep apnea) Heart failure with preserved ejection fraction, unspecified HF chronicity (H) Chronic heart failure with preserved ejection fraction (H) BASIC METABOLIC PANEL Routine 01/13/2023 2:51 PM ELECTRICAL TECH Acute on chronic diastolic heart failure [...] terminal pro BNP outpatient (01/13/2023 2:51 PM ELECTRICAL TECH) [facility] N Terminal Pro BNP Outpatient 2,066(H) 0 - 1,800 pg/mL 01/13/2023 4:53 PM ELECTRICAL TECH [facility] Comment: Reference range shown and [...] Unknown Venipuncture / Unknown 01/13/2023 2:51 PM ELECTRICAL TECH 01/13/2023 4:22 PM ELECTRICAL TECH Anthony Mazariegos MD LAB - BLOOD ORDERABL ES Performing Organization Address [facility]/ZIP Co de Phone Number [facility] [address] [facility] [place] [address], [place] [phone] * (ABNORMAL) Basic metabolic panel (01/13/2023 2:51 PM ELECTRICAL TECH) Sodium 139 135 - 145 mmol/L 01/13/2023 4:53 PM [facility] Comment:Reference intervals for this test were updated on 11/25/2022 to more accurately reflect our healthy population. There may be differences in the flagging of prior results with similar values performed with this method. Interpretation of those prior results can be made in the context of the updated reference intervals. Potassium 3.7 3.4 - 5.3 mmol/L 01/13/2023 4:53 PM [facility] Chloride 94(L) 98 - 107 mmol/L 01/13/2023 4:53 PM [facility] Carbon Dioxide (CO2) 32(H) 22 - 29 mmol/L 01/13/2023 4:53 PM [facility] Anion Gap 13 7 - 15 mmol/L 01/13/2023 4:53 PM [facility] Urea Nitrogen 39.2(H) 8.0 - 23.0 mg/dL 01/13/2023 4:53 PM [facility] Creatinine 2.25(H) 0.67 - 1.17 mg/dL 01/13/2023 4:53 PM [facility] GFR Estimate 29(L) >60 mL/min/1. 73m2 01/13/2023 4:53 PM [facility] Calcium 11.2(H) 8.8 - 10.2 mg/dL 01/13/2023 4:53 PM [facility] Glucose 94 70 - 99 mg/dL 01/13/2023 4:53 PM [facility] Blood STRUCTURE OF LEFT UPPER LIMB / Unknown Venipuncture / Unknown 01/13/2023 2:51 PM ELECTRICAL TECH 01/13/2023 4:22 PM ELECTRICAL TECH Anthony Mazariegos MD LAB - BLOOD ORDERABL ES Performing Organization Address City/[facility]/ZIP Co de Phone Number [facility] [address] [place] [address], [place] [phone] from Last 3 Months Advance Directives For more information, please contact: [phone] Latest Code Status on File Code Status Date Activated Date Inactivated Comments Full Code 12/12/2021 1:28 PM 12/20/2021 3:31 PM All basic and advanced life-sustaining interventions are performed as appropriate Question Answer Comments Code status determined by: Discussion with patient/ legal decision maker Code Status History Code Status Date Activated Date Inactivated Comments Full Code 03/29/2013 6:39 PM 03/31/2013 5:03 PM Care Teams Echo Tech Relationship Specialty Start Date End Date Emil Cope MD [facility] [address] [place] [address] PCP - General Emergency Medicine 09/30/22 Emmanuel Nobles MD [address] [place] [address] Hematology 02/07/22 Anthony Leyva MD [address] [place] [address] Gastroenterology 02/07/22 Anthony Leyva MD [address] [place] [address] Assigned Gastroenterology Provider 04/12/22 Evaristo Stack CNP [address] [facility] [address] [place] [address] Assigned Cancer Care Provider 07/26/22 Anthony Mazariegos MD [address] [facility] [address] [place], [place] [id number] Assigned Heart and Vascular Provider 01/17/23
--- OUTSIDE RECORDS SUMMARY | 2023-03-09 17:10 | XMS_ITS | Encounter Summary ---
Author Name Unknown Organization [place] Address [address] [facility] [place] [address] Care Team Providers Care System Administrator Name Role Phone HenryciraEmmanuel MD Unavailable [phone] Anthony Leyva MD Unavailable +- [phone] Anthony Leyva MD Unavailable + [phone] Evaristo Stack SOFTWARE QUALITY ASSURANCE ANALYST Unavailable [phone] Shaila Mota APRN SOFTWARE QUALITY ASSURANCE ANALYST Unavailable Emil Cope MD Primary Care Provider Encounter Details Date Type Department Care Team (Latest Contact Info) Description 11/10/2022 Travel Social History Tobacco Use Types Packs/Day [...] 1:30 PM CDT Virtual Visit [facility] [address] [facility] [address] [place] [phone] Evaristo Stack CNP [address] [facility] [address] [place], [place] [phone] Nallely Saravia MD [address] [place], [place] [phone] documented as of this encounter Visit Diagnoses Not on filedocumented in this encounter Care Teams System Administrator Relationship Specialty Start Date End Date Emil Cope MD [facility] [address] [place] [address] PCP - General Emergency Medicine 09/30/22 Emmanuel Nobles MD [facility] [place] [id number] Hematology 02/07/22 Anthony Leyva MD [address] [place] [address] Gastroenterology 02/07/22 Anthony Leyva MD [address] [place] [address] Assigned Gastroenterology Provider 04/12/22 Evaristo Stack CNP [address] [place] [address] Assigned Cancer Care Provider 07/26/22 Shaila Mota APRN SOFTWARE QUALITY ASSURANCE ANALYST [address] [facility], [address] [place] [address] Assigned Heart and Vascular Provider 09/20/22 01/16/23 documented as of this encounter
--- OUTSIDE RECORDS SUMMARY | 2023-03-09 17:11 | XMS_ITS | Encounter Summary ---
Author Name Unknown Organization [place] Address [address] [facility] [place] [address] Care Team Providers Care Condominium Property Manager Name Role Phone Anthony Mazariegos MD Primary Care Provider + [phone] Emmanuel Nobles MD Unavailable [phone] Anthony Leyva MD Unavailable [phone] Verona Mclain OBSERVER HELPER MECHANICAL SYSTEMS ENGINEER Unavailable Anthony Leyva MD Unavailable + [phone] Shaila Mota OBSERVER HELPER MECHANICAL SYSTEMS ENGINEER Unavailable Encounter Details Date Type Department Care Team (Latest Contact Info) Description 07/17/2022 Travel Social History Tobacco Use Types Packs/Day [...] suspected to have Coronavirus/COVID-19? No / Unsure 07/17/2022 3:15 PM CDT documented as of this encounter Plan of Treatment Upcoming Encounters Date Type Department Care Team (Late st Contact Info) Description 05/11/2023 1:30 PM CDT Virtual Visit [facility] [address] [facility] [address] [place] [address] Evaristo Stack CNP [address] [facility] [address] [place], [place] [id number] Nallely Saravia MD [address] [place], [place] [phone] documented as of this encounter Visit Diagnoses Not on filedocumented in this encounter Care Teams Condominium Property Manager Relationship Specialty Start Date End Date Anthony Mazariegos MD [address] [facility] [address] [place], [place] [phone] PCP - General Cardiovascular Disease 01/14/22 3 mEmanuel Nobles MD [address] [facility] [place] [place] [id number] Hematology 02/07/22 Anthony Leyva MD [address] [place] [address] Gastroenterology 02/07/22 Verona Mclain APRN MECHANICAL SYSTEMS ENGINEER [address]75 [place] [address] Assigned Cancer Care Provider 04/05/22 07/25/22 Anthony Leyva MD [address] [place] [address] Assigned Gastroenterology Provider 04/12/22 Shaila Mota APRN MECHANICAL SYSTEMS ENGINEER [address] [facility], [address] [place] [address] Assigned Heart and Vascular Provider 05/17/22 07/18/22 documented as of this encounter
--- OUTSIDE RECORDS SUMMARY | 2023-03-09 17:11 | XMS_ITS | Encounter Summary ---
Author Name Unknown Organization [place] Address [facility] access hospital0 [facility] [place] [address] Care Team Providers Care Mortgage Processing Clerk Name Role Phone Anthony Mazariegos MD Primary Care Provider Emmanuel Nobles MD Unavailable [phone] Anthony Leyva MD Unavailable [phone] Verona Mclain PATROL POLICE LIEUTENANT GUEST HOUSE MANAGER Unavailable Anthony Leyva MD Unavailable [phone] Shaila Mota APRN GUEST HOUSE MANAGER Unavailable Evaristo Stack GUEST HOUSE MANAGER Unavailable [phone] Anthony Mazariegos MD Unavailable [phone] Shaila Mota APRN GUEST HOUSE MANAGER Unavailable Encounter Details Date Type Department Care Team (Late st Contact Info) Description 05/21/2022 Telephone [facility] [address] [facility] [address] [place] [address] Stephanie Burnham Social History Tobacco Use Types Packs/Day Years [...] suspected to have Coronavirus/COVID-19? No / Unsure 09/15/2022 12:37 PM CDT documented as of this encounter Miscellaneous Notes * Telephone Encounter - Stephanie Burnham RN - 05/21/2022 8:57 AM CDT I can't really say it has. It still is there. Ankle rash disappeared, the one on the side of my belly went down. But I don't know. I would love to say it has gone away but they really haven't. Some are less but some are still the same. So I started jardiance again yesterday. Pt asking about eliquis refill - informed updated rx was sent and signed yesterday already. HARMEET Doherty RN BSN * Telephone Encounter - Stephanie Burnham RN - 05/21/2022 8:57 AM CDT ----- Message from Shaila Mota APRN CNP sent at 05/21/2022 7:30 AM CDT ----- Regarding: FW: rash Please call patient on his mobile phone to see if his rash has improved with holding Jardiance for over a week. Please update me. Thank you ----- Message ----- From: Shaila Mota APRN CNP Sent: 05/21/2022 12:00 AM CDT To: Shaila Mota APRN CNP Subject: rash Held Jardiance to see if this has improved his rash. Call him on his mobile phone number to see if rash has improved. documented in this encounter Plan of Treatment Upcoming Encounters Date Type Department Care Team (Late st Contact Info) Description 05/11/2023 1:30 PM CDT Virtual Visit [address] [place] [address] Evaristo Stack CNP [address] [facility] [address] [place], [place] [phone] Nallely Saravia MD [address] [place], [place] [phone] documented as of this encounter Visit Diagnoses Not on filedocumented in this encounter Care Teams Mortgage Processing Clerk Relationship Specialty Start Date End Date Anthony Mazariegos MD [address] [facility] [address] [place], [place] [phone] PCP - General Cardiovascular Disease 01/14/22 3 Emmanuel Nobles MD [facility] [place], [place] [phone] Hematology 02/07/22 Anthony Leyva MD [address] [place] [address] Gastroenterology 02/07/22 Verona Mclain APRN GUEST HOUSE MANAGER [address]75 [place] [address] Assigned Cancer Care Provider 04/05/22 07/25/22 Anthony Leyva MD 9 [place] [address] Assigned Gastroenterology Provider 04/12/22 Shaila Mota APRN GUEST HOUSE MANAGER [address] [facility], [address] [place] [address] Assigned Heart and Vascular Provider 05/17/22 07/18/22 Evaristo Stack, [facility]NA [facility] [address] [place] [address] Assigned Cancer Care Provider 07/26/22 Anthony Mazariegos MD [address] [facility] [address] [place], [place] [phone] Assigned Heart and Vascular Provider 07/19/22 09/19/22 Shaila Mota APRN GUEST HOUSE MANAGER [address] [facility], [address] [place], [place] [phone] Assigned Heart and Vascular Provider 09/20/22 01/16/23 documented as of this encounter
--- OUTSIDE RECORDS SUMMARY | 2023-03-09 17:11 | XMS_ITS | Encounter Summary ---
Author Name Unknown Organization [place] Address [address] [place] [address]. [place] [address] Care Team Providers Care Supervisor Spinning Name Role Phone Anthony Mazariegos MD Primary Care Provider Emmanuel Nobles MD Unavailable [phone] Anthony Leyva MD Unavailable [phone] Verona Mclain INSURANCE PRODUCER MOBILE EQUIPMENT SERVICER Unavailable Anthony Leyva MD Unavailable [phone] Shaila Mota INSURANCE PRODUCER MOBILE EQUIPMENT SERVICER Unavailable Reason for Visit * Reason Comments Medication Refill Encounter Details Date Type Department Care Team (Late st Contact Info) Description 06/17/2022 Refill [facility] [place] [address] [facility] [address] [place] [address] Anthony Mazariegos MD [address] [facility] [address] [place], [place] [phone] Medication Refill Social History Tobacco Use Types [...] 05/11/2023 1:30 PM CDT Virtual Visit [facility] [address] [facility] [address] [place] [phone] Evaristo Stack CNP 1875 [facility] 130 [place], [place] [phone] Nallely Saravia MD [address] [place] [address] documented as of this encounter Visit Diagnoses Diagnosis Hypokalemia Hypopotassemia documented in this encounter Care Teams Supervisor Spinning Relationship Specialty Start Date End Date Anthony Mazariegos MD [address] [place] [address] 200 [place] [address] PCP - General Cardiovascular Disease 01/14/22 3 Emmanuel Nobles MD [address] [facility] [place], [place] [phone] Hematology 02/07/22 Anthony Leyva MD [address] [place] [address] Gastroenterology 02/07/22 Verona Mclain APRN MOBILE EQUIPMENT SERVICER [address] [place] [address] Assigned Cancer Care Provider 04/05/22 07/25/22 Anthony Leyva MD [address] [place] [address] Assigned Gastroenterology Provider 04/12/22 Shaila Mota APRN MOBILE EQUIPMENT SERVICER [address] [facility], [address] [place] [address] Assigned Heart and Vascular Provider 05/17/22 07/18/22 documented as of this encounter
--- OUTSIDE RECORDS SUMMARY | 2023-03-09 17:11 | XMS_ITS | Encounter Summary ---
Author Name Unknown Organization [place] Address [address] [facility] [address] Care Team Providers Care Customer Care Specialist Name Role Phone Anthony Mazariegos MD Primary Care Provider [phone] Emmanuel Nobles MD Unavailable [phone] Anthony Leyva MD Unavailable [phone] Verona Mclain LOCOMOTIVE SUPERVISOR MEASUREMENT SPECIALIST Unavailable [phone] Anthony Leyva MD Unavailable + [phone] Shaila Mota LOCOMOTIVE SUPERVISOR MEASUREMENT SPECIALIST Unavailable Encounter Details Date Type Department Care Team (Latest Contact Info) Description 07/18/2022 Travel Social History Tobacco Use Types Packs/Day [...] suspected to have Coronavirus/COVID-19? No / Unsure 07/18/2022 2:07 PM CDT documented as of this encounter Plan of Treatment Upcoming Encounters Date Type Department Care Team (Late st Contact Info) Description 05/11/2023 1:30 PM CDT Virtual Visit [facility] [address] [facility] [address] [place] [address] Evaristo Stack CNP [address] [facility] [address] [place], [place] [phone] Nallely Saravia MD [address] [place], [place] [phone] documented as of this encounter Visit Diagnoses Not on filedocumented in this encounter Care Teams Customer Care Specialist Relationship Specialty Start Date End Date Anthony Mazariegos MD [address] [facility] [address] [place], [place] [phone] PCP - General Cardiovascular Disease 01/14/22 3 Emmanuel Nobles MD [address] [facility] [phone] Hematology 02/07/22 Anthony Leyva MD [address] [place] [address] Gastroenterology 02/07/22 Verona Mclain APRN MEASUREMENT SPECIALIST [address] [place] [address] Assigned Cancer Care Provider 04/05/22 07/25/22 Anthony Leyva MD [address]09 [place] [address] Assigned Gastroenterology Provider 04/12/22 Shaila Mota APRN MEASUREMENT SPECIALIST [address] [facility], [address] [place] [address] Assigned Heart and Vascular Provider 05/17/22 07/18/22 documented as of this encounter
--- OUTSIDE RECORDS SUMMARY | 2023-03-09 17:11 | XMS_ITS | Encounter Summary ---
Author Name Unknown Organization [place] Address [address] [place] [address] Care Team Providers Care English Adjunct Faculty Name Role Phone Anthony Mazariegos MD Primary Care Provider Emmanuel Nobles MD Unavailable [phone] Anthony Leyva MD Unavailable [phone] MACHINE RUNNER HEEL CASER Unavailable Anthony Leyva MD Unavailable [phone] MACHINE RUNNER HEEL CASER Unavailable Evaristo Stack HEEL CASER Unavailable Anthony Mazariegos MD Unavailable [phone] Shaila Mota APRN HEEL CASER Unavailable Emil Cope MD Primary Care Provider Anthony Mazariegos MD Unavailable [phone] Encounter Details Date Type Department Care Team (Late st Contact Info) Description 05/30/2022 [facility] Heart [facility] [address] [facility] [address] [place] [address] Unknown, Provider Social History Tobacco Use Types Packs/Day Years [...] suspected to have Coronavirus/COVID-19? No / Unsure 05/12/2022 9:22 AM CDT documented as of this encounter Plan of Treatment Upcoming Encounters Date Type Department Care Team (Late st Contact Info) Description 05/11/2023 1:30 PM CDT Virtual Visit [facility] [address] [facility] [address] [facility] [address] [place] [phone] Evaristo Stack, LANA [address] [facility] [address] [place], [place] [phone] Nallely Saravia MD [address] [place], [place] [phone] documented as of this encounter Procedures Procedure Name Priority Date/Time Associated Diagnosis Comments LAB RESULT - HIM SCAN Routine 05/30/2022 documented in this encounter Results * Lab Result - HIM Scan (05/30/2022) Provider Unknown MH NON-BEAKER LAB TE STING documented in this encounter Visit Diagnoses Not on filedocumented in this encounter Care Teams English Adjunct Faculty Relationship Specialty Start Date End Date Anthony Mazariegos MD [address] [facility] 200 [place] [address] PCP - General Cardiovascular Disease 01/14/22 3 Emil Cope MD [facility] [address] [place] [address] PCP - General Emergency Medicine 09/30/22 Emmanuel Nobles MD [address] [place] [address] Hematology 02/07/22 Anthony Leyva MD 909 [place] [address] Gastroenterology 02/07/22 Verona Mclain APRN HEEL CASER [address] [place] [address] Assigned Cancer Care Provider 04/05/22 07/25/22 Anthony Leyva MD [address] [place] [address] Assigned Gastroenterology Provider 04/12/22 Shaila Mota APRN HEEL CASER [address] [place] [address] Assigned Heart and Vascular Provider 05/17/22 07/18/22 Evaristo Stack, LANA [facility] Julia Cortez [address] [address] Assigned Cancer Care Provider 07/26/22 Anthony Mazariegos MD [address] [place] [address] Assigned Heart and Vascular Provider 07/19/22 09/19/22 Shaila Mota APRN HEEL CASER [address] [place] [address] Assigned Heart and Vascular Provider 09/20/22 01/16/23 Anthony Mazariegos MD [address] [place] [address] 200 [place] [address] Assigned Heart and Vascular Provider 01/17/23 documented as of this encounter
--- OUTSIDE RECORDS SUMMARY | 2023-03-09 17:11 | XMS_ITS | Encounter Summary ---
Author Name Unknown Organization [place] Address [facility] [place] [address] Care Team Providers Care Pullman Clerk Name Role Phone HenryciraEmmanuel MD Unavailable [phone] Anthony Leyva MD Unavailable [phone] Anthony Leyva MD Unavailable [phone] Evaristo Stack HELMINTHOLOGY TEACHER Unavailable Shaila Mota APRN HELMINTHOLOGY TEACHER Unavailable Emil Cope MD Primary Care Provider Reason for Visit * Reason Comments Medication Refill Encounter Details Date Type Department Care Team (Late st Contact Info) Description 10/20/[address] [facility] Heart [facility] [address] [facility] [address] [place] [phone] Anthony Mazariegos MD [address] [facility] [address] [place], [place] [phone] Medication Refill Social History Tobacco Use Types [...] Description 05/11/2023 1:30 PM CDT Virtual Visit [facility] [address] [facility] [address] [place] [phone] Evaristo Stack CNP [address] [place], [place] [phone] Nallely Saravia MD [facility]5 [place] [address] documented as of this encounter Visit Diagnoses Diagnosis Hypokalemia Hypopotassemia documented in this encounter Care Teams Pullman Clerk Relationship Specialty Start Date End Date Emil Cope MD [facility] 2000 [place] [address] PCP - General Emergency Medicine 09/30/22 Emmanuel Nobles MD [facility] [place] [address] Hematology 02/07/22 Anthony Leyva MD [address] [place] [address] Gastroenterology 02/07/22 Anthony Leyva MD [address] [place] [address] Assigned Gastroenterology Provider 04/12/22 [facility] [address] [place] [address] Assigned Cancer Care Provider 07/26/22 Shaila Mota APRN HELMINTHOLOGY TEACHER [address] [place] [address] [address] [place] [address] Assigned Heart and Vascular Provider 09/20/22 01/16/23 documented as of this encounter
--- OUTSIDE RECORDS SUMMARY | 2023-03-09 17:11 | XMS_ITS | Encounter Summary ---
Author Name Unknown Organization [place] Address [facility]0 [facility] [place] [address] Care Team Providers Care Scale Mechanic Name Role Phone Anthony Cherry MD Primary Care Provider [phone] Emmanuel Nobles MD Unavailable [phone] Anthony Leyva MD Unavailable + [phone] Anthony Leyva MD Unavailable + [phone] Evaristo Stack CNP Unavailable [phone] Anthony Cherry MD Unavailable [phone] Reason for Referral * Consultation (Routine: Next available opening) - Pending Review Specialty Diagnoses / Procedures Referred By Madeleine watters Referred To Contact Cardiovascular Disease Diagnoses Chronic heart failure with preserved ejection fraction (H) Shaila Mota, BARREL LEVELER SPA THERAPIST [address] [facility], [address] [place] [address] Referral ID Status Reason Start Date Expiration Date V isits Requested Visits Authorized [id number] Pending Review 09/15/2022 09/15/2023 1 1 Question Answer Follow-up with: Self Scheduling Instructions: [facility] will call you to coordinate your care as prescribed by your provider. If you have concerns about scheduling, please call [phone]. Comments [facility] will call you to coordinate your care as prescribed by your provider. If you have concerns about scheduling, please call [phone]. * Consultation (Routine: Next available opening) - Pending Review Specialty Diagnoses / Procedures Referred By Madeleine watters Referred To Contact Cardiovascular Disease Diagnoses Chronic heart failure with preserved ejection fraction (H) Shaila Mota APRN CNP [address] [facility], [address] [place] [address] Referral ID Status Reason Start Date Expiration Date V isits Requested Visits Authorized [id number] Pending Review 09/15/2022 09/15/2023 1 1 Question Answer Follow-up with: Other Industrial Cafeteria Manager Rhonda cherry Scheduling Instructions: [facility] will call you to coordinate your care as prescribed by your provider. If you have concerns about scheduling, please call [phone]. Comments [facility] will call you to coordinate your care as prescribed by your provider. If you have concerns about scheduling, please call [phone]. Reason for Visit * Reason Comments Follow Up * Consultation (Routine: Next available opening) - Pending Review Specialty Diagnoses / Procedures Referred By Madeleine watters Referred To Contact Cardiovascular Disease Diagnoses Chronic heart failure with preserved ejection fraction (H) Shaila Mota APRN CNP [address] [facility], [address] [place] [address] Referral ID Status Reason Start Date Expiration Date V isits Requested Visits Authorized [id number] Pending Review 05/12/2022 05/12/2023 1 1 Encounter Details Date Type Department Care Team (Late st Contact Info) Description 09/15/2022 12:50 PM CDT Office Visit [facility] [place] [address] [facility] [address] [place] [address] Shaila Mota APRN SPA THERAPIST [address] [facility], [address] [place], [place] [id number] Chronic heart failure with preserved ejection fraction (H) (Primary Dx); Essential hypertension; Permanent atrial fibrillation (H); VIANNEY (obstructive sleep apnea); Stage 3 chronic kidney disease, unspecified whether stage 3a or 3b CKD (H) Social History Tobacco Use Types Packs/Day [...] Sign Reading Time Taken Comments Blood Pressure 120/61 09/15/2022 12:49 PM CDT Pulse 89 09/15/2022 12:49 PM CDT Temperature - - Respiratory Rate 16 09/15/2022 12:49 PM CDT Oxygen Saturation 97% 09/15/2022 12:49 PM CDT Inhaled Oxygen Concentration - - Weight 109.8 kg (242 lb) 09/15/2022 12:49 PM CDT Height - - Body Mass Index 32.82 07/17/2022 2:06 PM CDT documented in this encounter Patient Instructions * Patient Instructions* Shaila Mota APRN CNP - 09/15/2022 12:50 PM CDT Tutu Ngo, It was a pleasure to see you today at [facility]. My recommendations after this visit include: - Please follow up with Dr Cherry in December - Please follow up with Shaila Mota in July 2023 - continue current medications Shaila Mota CNP documented in this encounter Progress Notes * Shaila Mota APRN CNP - 09/15/2022 12:50 PM CDT Images from the original note were not included. Assessment/Recommendations Assessment: 1. Heart failure with preserved ejection fraction, NYHA class II: Compensated. He has mild dyspnea on exertion and fatigue. His weights have been stable since taking metolazone twice a week. He denies orthopnea or PND. He follows a low- salt diet. 2. Hypertension: Controlled. Blood pressure 120/61 3. CKD stage III: Labs today were stable 4. Permanent atrial fibrillation: Rate controlled. He continues Eliquis for anticoagulation 5. VIANNEY: He continues to wear his CPAP Plan: 1. Continue current medications 2. Continue monitoring daily weights and following a low-salt diet 3. Encourage regular activity Tutu Ngo will follow up with Dr. Cherry in December and in the heart failure clinic in July 2023 or sooner if needed. History of Present Illness/Subjective Mr. Tutu Ngo is a 82 year old male seen at [facility] heart failure clinic today for continued follow-up. His and son accompany him today. He follows up for heart failure with preserved ejection fraction. He had an echocardiogram which showed ejection fraction of 50 to 55%.??He has a past medical history significant for hypertension, permanent atrial fibrillation, VIANNEY on CPAP, CKDstage III, and anemia. Today, he states he is feeling well. He has mild fatigue and dyspnea on exertion. He denies lightheadedness, shortness of breath, orthopnea, PND, palpitations, chest pain, abdominal fullness/bloatingand lower extremity edema. He is monitoring home weights which are stable between 238-241 pounds. He is following a low sodiumdiet. Physical Examination Review of Systems BP 120/61 (BP Location: Left arm, Patient Position: Sitting, Cuff Size: Adult Large) Pulse 89 Resp 16 Wt 109.8 kg (242 lb) SpO2 97% BMI 32.82 kg/m?? Body mass index is 32.82 kg/m??. Wt Readings from Last 3 Encounters: 09/15/22 109.8 kg (242 lb) 07/17/22 110.2 kg (243 lb) 07/17/22 110.2 kg (243 lb) General Appearance: no acute distress ENT/Mouth: No abnormalities EYES: no scleral icterus, normal conjunctivae Neck: no thyromegaly Chest/Lungs: lungs are clear to auscultation, no rales or wheezing, equal chest wall expansion Cardiovascular: Irregular irregular. Normal first and second heart sounds with no murmurs, rubs, orgallops, no edema bilaterally Abdomen: bowel sounds are present Extremities: no cyanosis or clubbing Skin: warm Neurologic: no tremors Psychiatric: alert and oriented x3 Medical History Surgical History Family History Social History Past Medical History: Diagnosis Date ??? Anesthesia complication confusion & crying after bilat carpal tunnel surgery ??? Arrhythmia a fib ??? Atrial fibrillation (H) ??? BPH (benign prostatic hyperplasia) ??? Chronic kidney disease ??? Colonic polyps ??? Congestive heart failure (H) ??? Cranial nerve palsy resolved ??? Diastolic dysfunction ??? Dyspnea on exertion ??? Eczema ??? GERD (gastroesophageal reflux disease) ??? HTN (hypertension) ??? Hyperlipidemia ??? Obesity ??? VIANNEY (obstructive sleep apnea) 02/03/2022 ??? VINANEY on CPAP ??? Renal disease Past Surgical History: Procedure Laterality Date ??? ARTHROPLASTY KNEE 03/29/2013 Procedure: ARTHROPLASTY KNEE; ARTHROPLASTY KNEE LEFT; Surgeon: Eric Pepper MD; Location: [facility] OR ??? CAPSULE/PILL CAM ENDOSCOPY N/A 01/14/2022 Procedure: IMAGING PROCEDURE, GI TRACT, INTRALUMINAL, VIA CAPSULE; Surgeon: Jeb Burr MD;Location: [facility] GI ??? COLONOSCOPY N/A 12/13/2021 Procedure: COLONOSCOPY WITH POLYPECTOMY AND CLIP PLACEMENT; Surgeon: Jose Alberto Diallo MD; Location: [facility] Main OR ??? ESOPHAGOSCOPY, GASTROSCOPY, DUODENOSCOPY (EGD), COMBINED N/A 12/13/2021 Procedure: ESOPHAGOGASTRODUODENOSCOPY (EGD) WITH BIOPSIES; Surgeon: Jose Alberto Diallo MD; Location: [facility] Main OR ??? HERNIA REPAIR ??? left nephrectomy[ ??? RELEASE CARPAL TUNNEL BILATERAL ??? right total knee arthroplasty[ Family History Problem Relation Age of Onset ??? Cancer Mother Lymphoma ??? Other - See Comments Father ALS ??? Thrombophilia Other Brother and sister ??? Liver Disease No family hx of Social History Socioeconomic History ??? Marital status: Spouse name: Not on file ??? Number of children: Not on file ??? Years of education: Not on file ??? Highest education level: Not on file Occupational History ??? Not on file Tobacco Use ??? Smoking status: Never ??? Smokeless tobacco: Never Vaping Use ??? Vaping Use: Never used Substance and Sexual Activity ??? Alcohol use: Yes Comment: very rare ??? Drug use: No ??? Sexual activity: Not Currently Other Topics Concern ??? Parent/sibling w/ CABG, [place] or angioplasty before 65F 55M? Not Asked Social History Narrative ??? Not on file Social Determinants of Health Financial Resource Strain: Not on file Food Insecurity: Not on file Transportation Needs: Not on file Physical Activity: Not on file Stress: Not on file Social Connections: Not on file Intimate Partner Violence: Not on file Housing Stability: Not on file Medications Allergies Current Outpatient Medications Medication Sig Dispense Refill ??? allopurinol (ZYLOPRIM) 100 MG tablet Take 200 mg by mouth daily ??? apixaban ANTICOAGULANT (ELIQUIS) 5 MG tablet Take 1 tablet (5 mg) by mouth 2 times daily 180 tablet 1 ??? bumetanide (BUMEX) 2 MG tablet Take 1 tablet (2 mg) by mouth 2 times daily (Water pill for heart) 180 tablet 3 ??? ciclopirox (LOPROX) 0.77 % cream Apply topically 2 times daily ??? desoximetasone (TOPICORT) 0.25 % external cream APPLY TOPICALLY TWICE A DAY NEEDED ??? empagliflozin (JARDIANCE) 10 MG TABS tablet Take 1 tablet (10 mg) by mouth daily (For heart muscle) 90 tablet 3 ??? Glucosamine-Chondroitin (COSAMIN DS PO) Take by mouth 2 times daily Cosamin DS 500/400 mg ??? metolazone (ZAROXOLYN) 2.5 MG tablet Take 1 tablet twice weekly 24 tablet 4 ??? potassium chloride ER (KLOR-CON M) 10 MEQ CR tablet TAKE 4 TABLETS (40 MEQ) BY MOUTH DAILY 120 tablet 3 ??? tamsulosin (FLOMAX) 0.4 MG capsule Take 0.4 mg by mouth daily Allergies Allergen Reactions ??? Furosemide Rash ??? Folic Acid Diarrhea Claims to folic acid intolerant, causes diarrhea. ??? Norvasc [Amlodipine Besylate] Swelling of right leg Lab Results Chemistry/lipid CBC Cardiac Enzymes/BNP/TSH/INR Lab Results Component Value Date BUN 40 (H) 09/15/2022 NA 139 09/15/2022 CO2 31 09/15/2022 Lab Results Component Value Date WBC 10.9 07/17/2022 HGB 12.4 (L) 07/17/2022 HCT 37.2 (L) 07/17/2022 MCV 95 07/17/2022 PLT 177 07/17/2022 Lab Results Component Value Date TSH 1.56 12/16/2021 INR 1.67 (H) 12/12/2021 This note has been dictated using voice recognition software. Any grammatical, typographical, or context distortions are unintentional and inherent to the software 30 minutes spent on the date of encounter doing chart review, review of outside records, review of test results, interpretation with above tests, patient visit, documentation and discussion with family. documented in this encounter Plan of Treatment Upcoming Encounters Date Type Department Care Team (Late st Contact Info) Description 05/11/2023 1:30 PM CDT Virtual Visit [address] [place] [phone] Evaristo Stack CNP [address] [place] [address] [address] [place], [place] [id number] Nallely Saravia MD [address] [place], [place] [phone] Scheduled Referrals Name Type Priority Associated Diagnoses Orde r Schedule Follow-Up with Cardiology Referral Routine: Next available opening Chronic heart failure with preserved ejection fraction (H) Expected: 01/16/2023 (Approximate), Expires: 09/16/2023 Follow-Up with Cardiology Referral Routine: Next available opening Chronic heart failure with preserved ejection fraction (H) Expected: 07/01/2023 (Approximate), Expires: 09/16/2023 documented as of this encounter Visit Diagnoses Diagnosis Chronic heart failure with preserved ejection fraction (H)- Primary Essential hypertension Unspecified essential hypertension Permanent atrial fibrillation (H) Atrial fibrillation VIANNEY (obstructive sleep apnea) Obstructive sleep apnea (adult) (pediatric) Stage 3 chronic kidney disease, unspecified whether stage 3a or 3b CKD (H) documented in this encounter Care Teams Scale Mechanic Relationship Specialty Start Date End Date Anthony Cherry MD [address] [facility] [address] [place] [address] PCP - General Cardiovascular Disease 01/14/22 3 Emmanuel Nobles MD [address] [place] [address] Hematology 02/07/22 Anthony Leyva MD [address] [place] [address] Gastroenterology 02/07/22 Anthony Leyva MD [address] [place] [address] Assigned Gastroenterology Provider 04/12/22 Evaristo Stack CNP [address] [address] Assigned Cancer Care Provider 07/26/22 Anthony Cherry MD [address] [facility] [address] [place] [address] Assigned Heart and Vascular Provider 07/19/22 09/19/22 documented as of this encounter
--- OUTSIDE RECORDS SUMMARY | 2023-03-09 17:11 | XMS_ITS | Encounter Summary ---
Author Name Unknown Organization [place] Address [facility]0 [facility] [place] [address] Care Team Providers Care Agricultural Produce Sorter Name Role Phone Anthony Mazariegos MD Primary Care Provider [phone] Emmanuel Nobles MD Unavailable [phone] Anthony Leyva MD Unavailable + [phone] Anthony Leyva MD Unavailable + [phone] Evaristo Stack CNP Unavailable [phone] Anthony Mazariegos MD Unavailable [phone] Encounter Details Date Type Department Care Team (Latest Contact Info) Description 08/18/2022 Travel Social History Tobacco Use Types Packs/Day [...] suspected to have Coronavirus/COVID-19? No / Unsure 08/18/2022 10:50 AM CDT documented as of this encounter Plan of Treatment Upcoming Encounters Date Type Department Care Team (Late st Contact Info) Description 05/11/2023 1:30 PM CDT Virtual Visit [address] [place] [phone] Evaristo Stack CNP [address] [place], [place] [phone] Nallely Saravia MD [address] [place] [address] documented as of this encounter Visit Diagnoses Not on filedocumented in this encounter Care Teams Agricultural Produce Sorter Relationship Specialty Start Date End Date Anthony Mazariegos MD [address] [facility] [address] [place], [place] [phone] PCP - General Cardiovascular Disease 01/14/22 3 Emmanuel Nobles MD [facility] [address] [place] [phone] Hematology 02/07/22 Anthony Leyva MD [address] [place] [id number] Gastroenterology 02/07/22 Anthony Leyva MD [address] [place] [id number] Assigned Gastroenterology Provider 04/12/22 Evaristo Stack CNP [facility] [address] [place] [address] Assigned Cancer Care Provider 07/26/22 Anthony Mazariegos MD [address] [facility] [address] [place] [address] Assigned Heart and Vascular Provider 07/19/22 09/19/22 documented as of this encounter
--- OUTSIDE RECORDS SUMMARY | 2023-03-09 17:11 | XMS_ITS | Encounter Summary ---
Author Name Unknown Organization [place] Address [address] [place] [address]. [place] [address] Care Team Providers Care Aboriginal Ceremonial Celebrant Name Role Phone Anthony Mazariegos MD Primary Care Provider Emmanuel Nobles MD Unavailable [phone] Anthony Leyva MD Unavailable [phone] Verona Mclain MACHINE ETCHER GEOTHERMAL POWERPLANT SUPERVISOR Unavailable [phone] Anthony Leyva MD Unavailable [phone] Shaila Mota MACHINE ETCHER GEOTHERMAL POWERPLANT SUPERVISOR Unavailable Encounter Details Date Type Department Care Team (Late st Contact Info) Description 07/17/2022 1:45 PM CDT Lab [address], [address] [place] [address] Evaristo Stack CNP [address] [place] [address] [id number] Other iron deficiency anemia; Myelodysplastic syndrome (H) Social History Tobacco Use [...] Description 05/11/2023 1:30 PM CDT Virtual Visit [facility] [address] [place] [address] Evaristo Stack, GEOTHERMAL POWERPLANT SUPERVISOR [address] [facility] [address] [place] [address] Nallely Saravia MD [address] [place] [address] documented as of this encounter Procedures Procedure Name Priority Date/Time Associated Diagnosis Comments CBC WITH PLATELETS AND DIFFERENTIAL Routine 07/17/2022 1:36 PM CDT Other iron deficiency anemia Myelodysplastic syndrome (H) CBC WITH PLATELETS & DIFFERENTIAL Routine 07/17/2022 1:36 PM CDT Other iron deficiency anemia Myelodysplastic syndrome (H) FERRITIN Routine 07/17/2022 1:36 PM CDT Other iron deficiency anemia Myelodysplastic syndrome (H) COMPREHENSIVE METABOLIC PANEL Routine 07/17/2022 1:36 PM CDT Other iron deficiency anemia Myelodysplastic syndrome (H) documented in this encounter Results * (ABNORMAL) CBC with platelets and differential (07/17/2022 1:36 PM CDT) WBC Count 10.9 4.0 - 11.0 10e3/uL 07/17/2022 1:52 PM CDT [facility] Comment:Preliminary ANC is 7 .2 RBC Count 3.90(L) 4.40 - 5.90 10e6/uL 07/17/2022 1:52 PM CDT [facility] Hemoglobin 12.4(L) 13.3 - 17.7 g/dL 07/17/2022 1:52 PM [facility] Hematocrit 37.2(L) 40.0 - 53.0 % 07/17/2022 1:52 PM [facility] MCV 95 78 - 100 fL 07/17/2022 1:52 PM [facility] MCH 31.8 26.5 - 33.0 pg 07/17/2022 1:52 PM [facility] MCHC 33.3 31.5 - 36.5 g/dL 07/17/2022 1:52 PM [facility] RDW 14.4 10.0 - 15.0 % 07/17/2022 1:52 PM [facility] Platelet Count 177 150 - 450 10e3/uL 07/17/2022 1:52 PM [facility] % Neutrophils 66 % 07/17/2022 1:52 PM [facility] % Lymphocytes 21 % 07/17/2022 1:52 PM [facility] % Monocytes 9 % 07/17/2022 1:52 PM [facility] % Eosinophils 3 % 07/17/2022 1:52 PM [facility] % Basophils 1 % 07/17/2022 1:52 PM [facility] % Immature Granulocytes 0 % 07/17/2022 1:52 PM [facility] NRBCs per 100 WBC 0 <1 /100 023 1:52 PM [facility] Absolute Neutrophils 7.2 1.6 - 8.3 10e3/uL 07/17/2022 1:52 PM [facility] Absolute Lymphocytes 2.3 0.8 - 5.3 10e3/uL 07/17/2022 1:52 PM [facility] Absolute Monocytes 1.0 0.0 - 1.3 10e3/uL 07/17/2022 1:52 PM [facility] Absolute Eosinophils 0.3 0.0 - 0.7 10e3/uL 07/17/2022 1:52 PM [facility] Absolute Basophils 0.1 0.0 - 0.2 10e3/uL 07/17/2022 1:52 PM [facility] Absolute Immature Granulocytes 0.0 <=0.4 10e3/uL 07/17/2022 1:52 PM CDT [facility] Absolute NRBCs 0.0 10e3/uL 07/17/2022 1:52 PM CDT [facility] Blood BLOOD SPECIMEN / Unknown Venipuncture / Unknown 07/17/2022 1:36 PM CDT 07/17/2022 1:46 PM CDT Verona Mclain TOYA GEOTHERMAL POWERPLANT SUPERVISOR LAB - BLOOD O RDERABLES [facility] [address] [facility] [place], [place] [id number] [place] [address] * (ABNORMAL) Comprehensive metabolic panel (BMP + Alb, Alk Phos, ALT, AST, Total. Bili, TP) (07/17/2022 1:36 PM CDT) Sodium 138 136 - 145 mmol/L 07/17/2022 2:10 PM [facility] Potassium 3.6 3.5 - 5.0 mmol/L 07/17/2022 2:10 PM T [facility] Chloride 97(L) 98 - 107 mmol/L 07/17/2022 2:10 PM T [facility] Carbon Dioxide (CO2) 31 22 - 31 mmol/L 07/17/2022 2:10 PM [facility] Anion Gap 10 5 - 18 mmol/L 07/17/2022 2:10 PM [facility] Urea Nitrogen 44(H) 8 - 28 mg/dL 07/17/2022 2:10 PM CDT [facility] Creatinine 2.32(H) 0.70 - 1.30 mg/dL 07/17/2022 2:10 PM CDT [facility] Calcium 10.2 8.5 - 10.5 mg/dL 07/17/2022 2:10 PM CDT [facility] Glucose 92 70 - 125 mg/dL 07/17/2022 2:10 PM T [facility] Alkaline Phosphatase 90 45 - 120 U/L 07/17/2022 2:10 PM CDT [facility] AST 21 0 - 40 U/L 07/17/2022 2:10 PM CDT [facility] ALT 22 0 - 45 U/L 07/17/2022 2:10 PM CDT [facility] Protein Total 7.7 6.0 - 8.0 g/dL 07/17/2022 2:10 PM CDT [facility] Albumin 3.9 3.5 - 5.0 g/dL 07/17/2022 2:10 PM CDT [facility] Bilirubin Total 0.6 0.0 - 1.0 mg/dL 07/17/2022 2:10 PM CDT [facility] GFR Estimate 28(L) >60 mL/min/1.7 3m2 07/17/2022 2:10 PM CDT [facility] Comment:eGFR calculated usin 2020 CKD-EPI equation. Blood BLOOD SPECIMEN / Unknown Venipuncture / Unknown 07/17/2022 1:36 PM CDT 07/17/2022 1:46 PM CDT Verona Mclain APRN GEOTHERMAL POWERPLANT SUPERVISOR LAB - BLOOD O RDERABLES [facility] [address] [facility] [address] [phone] * Ferritin (07/17/2022 1:36 PM CDT) Ferritin 116 31 - 409 ng/mL 07/17/2022 9:12 PM CDT LABORATORY Blood BLOOD SPECIMEN / Unknown Venipuncture / Unknown 07/17/2022 1:36 PM CDT 07/17/2022 1:46 PM CDT Verona Mclain APRN GEOTHERMAL POWERPLANT SUPERVISOR LAB - BLOOD O RDERABLES LAB[facility] [address] [facility] [place] [address], [facility] [phone] documented in this encounter Visit Diagnoses Diagnosis Other iron deficiency anemia Myelodysplastic syndrome (H) Myelodysplastic syndrome, unspecified documented in this encounter Care Teams Aboriginal Ceremonial Celebrant Relationship Specialty Start Date End Date Anthony Mazariegos MD [address] [facility] [address] [place] [address] PCP - General Cardiovascular Disease 01/14/22 3 [place] [address] [place] [address] [place] [address] Hematology 02/07/22 Anthony Leyva MD [address] [place] [address] Gastroenterology 02/07/22 Verona Mclain APRN GEOTHERMAL POWERPLANT SUPERVISOR [address] [place] [address] Assigned Cancer Care Provider 04/05/22 07/25/22 Anthony Leyva MD [address] [place] [address] Assigned Gastroenterology Provider 04/12/22 Shaila Mota APRN GEOTHERMAL POWERPLANT SUPERVISOR [address] [facility] [place] [address] Assigned Heart and Vascular Provider 05/17/22 07/18/22 documented as of this encounter
--- OUTSIDE RECORDS SUMMARY | 2023-03-09 17:11 | XMS_ITS | Encounter Summary ---
Author Name Unknown Organization [place] Address [address] [facility] [place] [address] Care Team Providers Care Granular Operator Name Role Phone Anthony Mazariegos MD Primary Care Provider [phone] Emmanuel Nobles MD Unavailable [phone] Anthony Leyva MD Unavailable + [phone] Anthony Leyva MD Unavailable + [phone] Evaristo Stack CNP Unavailable [phone] Anthony Mazariegos MD Unavailable [phone] Encounter Details Date Type Department Care Team (Late st Contact Info) Description 09/15/2022 1:30 PM CDT Lab [facility] Laboratory [facility] [place] [address] Chronic heart failure with preserved ejection fraction (H); Hypokalemia Social History Tobacco Use Types Packs/Day Years [...] Description 05/11/2023 1:30 PM CDT Virtual Visit [facility] [address] [place] [address] Evaristo Stack, HOUSING INSTALLER [address] [place] [address] Nallely Saravia MD [address] [place] [address] documented as of this encounter Procedures Procedure Name Priority Date/Time Associated Diagnosis Comments BASIC METABOLIC PANEL Routine 09/15/2022 12:29 PM CDT Chronic heart failure with preserved ejection fraction (H) Hypokalemia documented in this encounter Results * (ABNORMAL) Basic metabolic panel (09/15/2022 12:29 PM CDT) Sodium 139 136 - 145 mmol/L 09/15/2022 12:47 PM T [facility] Potassium 3.6 3.5 - 5.0 mmol/L 09/15/2022 12:47 PM T [facility] Chloride 96(L) 98 - 107 mmol/L 09/15/2022 12:47 PM T [facility] Carbon Dioxide (CO2) 31 22 - 31 mmol/L 09/15/2022 12:47 PM T [facility] Anion Gap 12 5 - 18 mmol/L 09/15/2022 12:47 PM T [facility] Urea Nitrogen 40(H) 8 - 28 mg/dL 09/15/2022 12:47 PM T [facility] Creatinine 2.43(H) 0.70 - 1.30 mg/dL 09/15/2022 12:47 PM [facility] Calcium 10.8(H) 8.5 - 10.5 mg/dL 09/15/2022 12:47 PM [facility] Glucose 120 70 - 125 mg/dL 09/15/2022 12:47 PM T [facility] GFR Estimate 26(L) >60 mL/min/1.7 3m2 09/15/2022 12:47 PM CDT [facility] Blood STRUCTURE OF LEFT UPPER LIMB / Unknown Venipuncture / Unknown 09/15/2022 12:29 PM CDT 09/15/2022 12:30 PM CDT Anthony Mazariegos MD LAB - BLOOD ORDERABL ES [facility] [address] [id number] [phone] documented in this encounter Visit Diagnoses Diagnosis Chronic heart failure with preserved ejection fraction (H) Hypokalemia Hypopotassemia documented in this encounter Care Teams Granular Operator Relationship Specialty Start Date End Date Anthony Mazariegos MD [address] [facility] [address] [place] [address] PCP - General Cardiovascular Disease 01/14/22 3 Emmaunel Nobles MD [address] [place] [address] Hematology 02/07/22 Anthony Leyva MD [address] [place] [address] Gastroenterology 02/07/22 Anthony Leyva MD [address] [place] [address] Assigned Gastroenterology Provider 04/12/22 Evaristo Stack, LANA [address] [facility] [address] [place] [address] Assigned Cancer Care Provider 07/26/22 Anthony Mazariegos MD [address] [facility] [address] [place] [address] Assigned Heart and Vascular Provider 07/19/22 09/19/22 documented as of this encounter
--- OUTSIDE RECORDS SUMMARY | 2023-03-09 17:11 | XMS_ITS | Encounter Summary ---
Author Name Unknown Organization [place] Address [facility] [place] [address] Care Team Providers Care Diagnostics Sales Developer Name Role Phone Anthony Mazariegos MD Primary Care Provider Emmanuel Nobles MD Unavailable [phone] Anthony Leyva MD Unavailable + [phone] Anthony Leyva MD Unavailable + [phone] Evaristo Stack CNP Unavailable [phone] Anthony Mazariegos MD Unavailable [phone] Encounter Details Date Type Department Care Team (Late st Contact Info) Description 2022 Orders Only [facility] [place] [address] [facility] [address] [place] [phone] Yajaira Mclaughlin, curriculum coordinator heart failure with preserved ejection fraction (H) (Primary Dx); Hypokalemia Social History Tobacco Use Types Packs/Day [...] Description 05/11/2023 1:30 PM CDT Virtual Visit [facility] [address] [place] [phone] Evaristo Stack, SQUARE SHEAR OPERATOR [address] [facility] [address] [place], [place] [phone] Nallely Saravia MD [address] [place], [place] [phone] documented as of this encounter Results * (ABNORMAL) Basic metabolic panel (09/15/2022 12:29 PM CDT) Sodium 139 136 - 145 mmol/L 09/15/2022 12:47 PM T [facility] Potassium 3.6 3.5 - 5.0 mmol/L 09/15/2022 12:47 PM [facility] Chloride 96(L) 98 - 107 mmol/L 09/15/2022 12:47 PM [facility] Carbon Dioxide (CO2) 31 22 - 31 mmol/L 09/15/2022 12:47 PM [facility] Anion Gap 12 5 - 18 mmol/L 09/15/2022 12:47 PM [facility] Urea Nitrogen 40(H) 8 - 28 mg/dL 09/15/2022 12:47 PM [facility] Creatinine 2.43(H) 0.70 - 1.30 mg/dL 09/15/2022 12:47 PM [facility] Calcium 10.8(H) 8.5 - 10.5 mg/dL 09/15/2022 12:47 PM [facility] Glucose 120 70 - 125 mg/dL 09/15/2022 12:47 PM [facility] GFR Estimate 26(L) >60 mL/min/1.7 3m2 09/15/2022 12:47 PM [facility] Blood STRUCTURE OF LEFT UPPER LIMB / Unknown Venipuncture / Unknown 09/15/2022 12:29 PM CDT 09/15/2022 12:30 PM CDT Anthony Mazariegos MD LAB - BLOOD ORDERABL ES [facility] [address] [place] [address], [facility] [phone] documented in this encounter Visit Diagnoses Diagnosis Chronic heart failure with preserved ejection fraction (H)- Primary Hypokalemia Hypopotassemia documented in this encounter Care Teams Diagnostics Sales Developer Relationship Specialty Start Date End Date Anthony Mazariegos MD [address] [facility] [address] [place] [address] PCP - General Cardiovascular Disease 01/14/22 3 Emmanuel Nobles MD [address] [place] [address] Hematology 02/07/22 Anthony Leyva MD [address] [place] [address] Gastroenterology 02/07/22 Anthony Leyva MD [address] [place] [address] Assigned Gastroenterology Provider 04/12/22 Evaristo Stack, SQUARE SHEAR OPERATOR [address] [facility] [address] [place] [address] Assigned Cancer Care Provider 07/26/22 Anthony Mazariegos MD [address] [facility] 200 [place] [address] Assigned Heart and Vascular Provider 07/19/22 09/19/22 documented as of this encounter
--- OUTSIDE RECORDS SUMMARY | 2023-03-09 17:11 | XMS_ITS | Encounter Summary ---
Author Name Unknown Organization [place] Address [facility] [place] [address] Care Team Providers Care Photonics Technician Name Role Phone Anthony Mazariegos MD Primary Care Provider [phone] Emmanuel Nobles MD Unavailable [phone] Anthony Leyva MD Unavailable + [phone] Anthony Leyva MD Unavailable + [phone] Evaristo Stack CNP Unavailable [phone] Anthony Mazariegos MD Unavailable [phone] Reason for Visit * Reason Onset Date Comments Patient Request 08/04/2022 Encounter Details Date Type Department Care Team (Late st Contact Info) Description 08/04/2022 [facility] [address] [facility] [address] [place] [phone] Estela Adam Patient Request Social History Tobacco Use Types Packs/Day Years [...] encounter Miscellaneous Notes * Telephone Encounter - Estela Adam - 08/05/2022 3:13 PM CDT Spoke with Pt regarding recommendations from Dr. Mazariegos. Pt in agreement. Will stop into WW in 2 weeks. No further questions or concerns noted-JUHI * Telephone Encounter - Estela Adam - 08/05/2022 10:39 AM CDT Left message with spouse-JUHI * Telephone Encounter - Estela Adam - 08/05/2022 10:37 AM CDT From: Anthony Mazariegos MD Sent: 08/04/2022 5:41 PM CDT To: Estela Adam Okay, We will check basic metabolic panel in a couple of weeks. ThanksAnthony ----- Message ----- From: Estela Adam Sent: 08/04/2022 1:48 PM CDT To: Anthony Mazariegos MD ----- Message from Estela Adam sent at 08/04/2022 1:48 PM CDT ----- Hi Dr. Mazariegos, Please see encounter, Pt resumed previous dose of metolazone 2.5 mg twice per week. any further recommendations.-JUHI * Telephone Encounter - Estela Adam - 08/04/2022 1:37 PM CDT Pt called in regarding after decreasing metolazone 2.5 mg once per week. Weights are checked daily and close to the same time each day. No sob, edema noted per pt. 07/17 241 07/18 07/19 240 07/20 243 07/21 244.9 07/22 245 07/23 244 07/24 243.7 Self dosed metolazone 2.5 mg twice daily 08/03 239.4 lb Pt indicated resumed back to metolazone 2.5 mg twice per week. Will need refill eliquis as well. Will discuss with provider regarding status update. documented in this encounter Plan of Treatment Upcoming Encounters Date Type Department Care Team (Late st Contact Info) Description 05/11/2023 1:30 PM CDT Virtual Visit [facility] [address] [facility] [address] [place] [address] Evaristo Stack, LANA [address] [facility] [address] [place] [address] Nallely Saravia MD [address] [place] [address] documented as of this encounter Results * (ABNORMAL) Basic metabolic panel (08/18/2022 10:55 AM CDT) Pathologist [facility] Sodium 139 136 - 145 mmol/L 08/18/2022 11:12 AM [facility] Potassium 3.4(L) 3.5 - 5.0 mmol/L 08/18/2022 11:12 AM [facility] Chloride 96(L) 98 - 107 mmol/L 08/18/2022 11:12 AM [facility] Carbon Dioxide (CO2) 31 22 - 31 mmol/L 08/18/2022 11:12 AM [facility] Anion Gap 12 5 - 18 mmol/L 08/18/2022 11:12 AM [facility] Urea Nitrogen 44(H) 8 - 28 mg/dL 08/18/2022 11:12 AM [facility] Creatinine 2.34(H) 0.70 - 1.30 mg/dL 08/18/2022 11:12 AM [facility] Calcium 10.9(H) 8.5 - 10.5 mg/dL 08/18/2022 11:12 AM [facility] Glucose 92 70 - 125 mg/dL 08/18/2022 11:12 AM [facility] GFR Estimate 28(L) >60 mL/min/1.7 3m2 08/18/2022 11:12 AM CDT [facility] Comment:eGFR calculated us2020 CKD-EPI equation. Blood STRUCTURE OF LEFT UPPER LIMB / Unknown Venipuncture / Unknown 08/18/2022 10:55 AM CDT 08/18/2022 10:55 AM CDT Anthony Mazariegos MD LAB - BLOOD ORDERABL ES [facility] [address] [id number] [phone] documented in this encounter Visit Diagnoses Diagnosis Chronic heart failure with preserved ejection fraction (H) documented in this encounter Care Teams Photonics Technician Relationship Specialty Start Date End Date Anthony Mazariegos MD [address] [facility] [address] [place] [address] PCP - General Cardiovascular Disease 01/14/22 3 Emmanuel Nobles MD [address] [place] [address] Hematology 02/07/22 Anthony Leyva MD [address] [place] [address] Gastroenterology 02/07/22 Anthony Leyva MD [address] [place] [address] Assigned Gastroenterology Provider 04/12/22 Evaristo Stack, FUNNEL SETTER [address] [facility] [address] [place] [address] Assigned Cancer Care Provider 07/26/22 Anthony Mazariegos MD [address] [facility] [address] [place] [address] Assigned Heart and Vascular Provider 07/19/22 09/19/22 documented as of this encounter
--- OUTSIDE RECORDS SUMMARY | 2023-03-09 17:11 | XMS_ITS | Encounter Summary ---
Author Name Unknown Organization [place] Address [address] [place] [address]. [place] [address] Care Team Providers Care Technical Manager Chemical Plant Name Role Phone Anthony Mazariegos MD Primary Care Provider Emmanuel Nobles MD Unavailable [phone] Anthony Leyva MD Unavailable [phone] Verona Mclain SOCIAL WORK ASSISTANT BANDAGE WINDING MACHINE OPERATOR Unavailable Anthony Leyva MD Unavailable [phone] Shaila Mota SOCIAL WORK ASSISTANT BANDAGE WINDING MACHINE OPERATOR Unavailable Reason for Visit * Reason Comments Hematology Other iron deficienc y anemia Encounter Details Date Type Department Care Team (Late st Contact Info) Description 07/17/2022 2:15 PM CDT Oncology Visit [address], [address] [place] [address] Evaristo Stack CNP [address] [place] [address] [address] [place] [address] Other iron deficiency anemia (Primary Dx) Social History Tobacco Use Types [...] Sign Reading Time Taken Comments Blood Pressure 129/71 07/17/2022 2:06 PM CDT Pulse 79 07/17/2022 2:06 PM CDT Temperature 36.8 ??C (98.3 ??F) 07/17/2022 2:06 PM CD T Respiratory Rate 16 07/17/2022 2:06 PM CDT Oxygen Saturation 96% 07/17/2022 2:06 PM CDT Inhaled Oxygen Concentration - - Weight 110.2 kg (243 lb) 07/17/2022 2:06 PM CDT Height 182.9 cm (6') 07/17/2022 2:06 PM CDT Body Mass Index 32.96 07/17/2022 2:06 PM CDT documented in this encounter Patient Instructions * Patient Instructions* Evaristo Stack, LANA - 07/17/2022 2:15 PM CDT Recent Results (from the past 24 hour(s)) Comprehensive metabolic panel (BMP + Alb, Alk Phos, ALT, AST, Total. Bili, TP) Collection Time: 07/17/22 1:36 PM Result Value Ref Range Sodium 138 136 - 145 mmol/L Potassium 3.6 3.5 - 5.0 mmol/L Chloride 97 (L) 98 - 107 mmol/L Carbon Dioxide (CO2) 31 22 - 31 mmol/L Anion Gap 10 5 - 18 mmol/L Urea Nitrogen 44 (H) 8 - 28 mg/dL Creatinine 2.32 (H) 0.70 - 1.30 mg/dL Calcium 10.2 8.5 - 10.5 mg/dL Glucose 92 70 - 125 mg/dL Alkaline Phosphatase 90 45 - 120 U/L AST 21 0 - 40 U/L ALT 22 0 - 45 U/L Protein Total 7.7 6.0 - 8.0 g/dL Albumin 3.9 3.5 - 5.0 g/dL Bilirubin Total 0.6 0.0 - 1.0 mg/dL GFR Estimate 28 (L) >60 mL/min/1.73m2 CBC with platelets and differential Collection Time: 07/17/22 1:36 PM Result Value Ref Range WBC Count 10.9 4.0 - 11.0 10e3/uL RBC Count 3.90 (L) 4.40 - 5.90 10e6/uL Hemoglobin 12.4 (L) 13.3 - 17.7 g/dL Hematocrit 37.2 (L) 40.0 - 53.0 % MCV 95 78 - 100 fL MCH 31.8 26.5 - 33.0 pg MCHC 33.3 31.5 - 36.5 g/dL RDW 14.4 10.0 - 15.0 % Platelet Count 177 150 - 450 10e3/uL % Neutrophils 66 % % Lymphocytes 21 % % Monocytes 9 % % Eosinophils 3 % % Basophils 1 % % Immature Granulocytes 0 % NRBCs per 100 WBC 0 <1 /100 Absolute Neutrophils 7.2 1.6 - 8.3 10e3/uL Absolute Lymphocytes 2.3 0.8 - 5.3 10e3/uL Absolute Monocytes 1.0 0.0 - 1.3 10e3/uL Absolute Eosinophils 0.3 0.0 - 0.7 10e3/uL Absolute Basophils 0.1 0.0 - 0.2 10e3/uL Absolute Immature Granulocytes 0.0 <=0.4 10e3/uL Absolute NRBCs 0.0 10e3/uL documented in this encounter Progress Notes * Ashutosh Bustamante, MINOR - 07/17/2022 2:15 PM CDT Oncology Rooming Note July 17, 2022 2:08 PM Tutu Ngo is a 81 year old male who presents for: Chief Complaint Patient presents with ??? Hematology Other iron deficiency anemia Initial Vitals: BP 129/71 (Patient Position: Sitting) Pulse 79 Temp 98.3 ??F (36.8 ??C) (Oral) Resp 16 Ht 1.829 m (6') Wt 110.2 kg (243 lb) SpO2 96% BMI 32.96 kg/m?? Estimated body massindex is 32.96 kg/m?? as calculated from the following: Height as of this encounter: 1.829 m (6'). Weight as of this encounter: 110.2 kg (243 lb). Body surface area is 2.37 meters squared. No Pain (0) Comment: Data Unavailable No LMP for male patient. Allergies reviewed: Yes Medications reviewed: Yes Medications: Medication refills not needed today. Pharmacy name entered into [facility]: [address] Clinical concerns: Itchy rash, left arm red. Comes and goes. Ashutosh Bustamante LPN * Evaristo Stack CNP - 07/17/2022 2:15 PM CDT [facility] Hematology and Oncology Progress Note Patient: Tutu Ngo Date of Service: July 17, 2022 Reason for Visit: Scheduled f/up Assessment and Plan: 1. Iron deficiency anemia and myelodysplastic syndrome, IPSS-R3.5: ?? 81 year old. 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 Creatinines in the 1.6 range, diastolic heart failure, coronary artery disease, atrial fibrillation on apixaban and aspirin, hypertension, hyperlipidemia, gout and BPH. ?? Patient presents accompanied by his and daughter. Overall, he has been feeling quite good. Appetite good - weight up ~10 pounds the past 6-months. Stable PS. No known source of blood loss. Denies cough, fever, chills, unusual headaches, visual or mentation disturbance, bowel or bladder issues, rash. ?? CMP - Stage IV CKD. Otherwise basically WNL. ?? Encouraged discussing Nephrology involvement with PCP. 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 On diuretics through Cardiology. ?? CBC - WBC, differential and Plts WNL. HgB stable @ 12.4 g/dL. ?? Ferritin - increased to 116. ?? Continued good and lasting response to parenteral iron therapy. Last received 2 doses 300 mg venofer ~6 months ago, on 02/05 and 02/07/23 (HgB 11.6 at the time). HgB very stable with that of 4-months ago. ?? Does not need to start oral iron at this time (has never taken). ?? 01/14/22 small bowel capsule enteroscopy revealed proximal and mid jejunal apparent varices and erythematous gastropathy - likely source of bleed. ?? Diastolic heart failure - follows with the chronic heart failure clinic, Dr Anthony Mazariegos. ?? 4-month f/up with CBC and ferritin. Patient lives over 40 miles away in [place], [place]. I told him it would be totally appropriate to get his labs drawn at the [facility] and video f/up forhis next appointment if desired. Hematologic History: 1. Iron deficiency anemia and myelodysplastic syndrome, IPSS-R3.5 ?? 12/12/2021-12/01/2021 hospitalized for hypotension, iron deficiency, abrupt anemia and diastolic heart failure. ?? 12/12/21 inpatient EGD/colonoscopy revealed no apparent bleeding source. ?? 12/14/21 CT CAP - revealed no retroperitoneal hematoma or gross small bowel pathology. ?? 12/16/21 bone marrow biopsy revealed a hypercellular bone marrow with high normal CD34 positive blasts with increased CD56 suggestive of a myelodysplastic syndrome with increased B interstitial cells associated with normal chromosomes, MDS-NGS, FISH, and flow cytometry. Decreased bone marrow iron stores were noted with peripheral blood counts supporting a diagnosis of iron deficiency anemia associate with erythropoietin level 60 and a creatinine of 2.38. (anemia, hypercellular marrow, normalcytogenetics, blasts increased but less than 5%) ?? 01/01/2022 and 01/07/2022 received 2 doses 300 mg venofer, after 500 mg iron sucrose administered as an inpatient. ?? 01/14/22 small bowel capsule enteroscopy revealed proximal and mid jejunal apparent varices. Erythematous gastropathy was also observed. ECOG Performance: 2 - Ambulatory and independent in all ADLs; cannot work; up > 50% of the time Pain Pain Score: No Pain (0) Encounter Diagnoses: Problem List Items Addressed This Visit None 33 minutes of time were spent on the date of this encounter with chart review, face to face time with the patient, examination, recommendations, documentation, and communication of the plan of care to the care team. Evaristo Stack, BANDAGE WINDING MACHINE OPERATOR CC: Anthony Mazariegos MD Review of Systems: [...] Past History: Past Medical History: Diagnosis Date ??? Anesthesia [...] ??? VIANNEY (obstructive sleep apnea) 02/03/2022 ??? VIANNEY on CPAP ??? Renal disease Past Surgical [...] PLACEMENT; Surgeon: Jose Alberto Diallo MD; Location: [facility] Main OR ??? ESOPHAGOSCOPY, GASTROSCOPY, DUODENOSCOPY (EGD), COMBINED N/A 12/13/2021 Procedure: ESOPHAGOGASTRODUODENOSCOPY (EGD) WITH BIOPSIES; Surgeon: Jose Alberto Diallo MD; Location: [facility] Main OR ??? HERNIA REPAIR ??? left nephrectomy[ ??? RELEASE CARPAL TUNNEL BILATERAL ??? right total knee arthroplasty[ Physical Exam: BP 129/71 (Patient Position: Sitting) Pulse 79 Temp 98.3 ??F (36.8 ??C) (Oral) Resp 16 Ht 1.829 m (6') Wt 110.2 kg (243 lb) SpO2 96% BMI 32.96 kg/m?? GENERAL: Alert and oriented. Seated comfortably. [...] bruising or purpura noted. Lab Results: Reviewed with patient. Recent Results (from the past 120 hour(s)) Ferritin Collection Time: 07/17/22 1:36 PM Result Value Ref Range Ferritin 116 31 - 409 ng/mL Comprehensive metabolic panel (BMP + Alb, Alk Phos, ALT, AST, Total. Bili, TP) Collection Time: 07/17/22 1:36 PM Result Value Ref Range Sodium 138 136 - 145 mmol/L Potassium 3.6 3.5 - 5.0 mmol/L Chloride 97 (L) 98 - 107 mmol/L Carbon Dioxide (CO2) 31 22 - 31 mmol/L Anion Gap 10 5 - 18 mmol/L Urea Nitrogen 44 (H) 8 - 28 mg/dL Creatinine 2.32 (H) 0.70 - 1.30 mg/dL Calcium 10.2 8.5 - 10.5 mg/dL Glucose 92 70 - 125 mg/dL Alkaline Phosphatase 90 45 - 120 U/L AST 21 0 - 40 U/L ALT 22 0 - 45 U/L Protein Total 7.7 6.0 - 8.0 g/dL Albumin 3.9 3.5 - 5.0 g/dL Bilirubin Total 0.6 0.0 - 1.0 mg/dL GFR Estimate 28 (L) >60 mL/min/1.73m2 CBC with platelets and differential Collection Time: 07/17/22 1:36 PM Result Value Ref Range WBC Count 10.9 4.0 - 11.0 10e3/uL RBC Count 3.90 (L) 4.40 - 5.90 10e6/uL Hemoglobin 12.4 (L) 13.3 - 17.7 g/dL Hematocrit 37.2 (L) 40.0 - 53.0 % MCV 95 78 - 100 fL MCH 31.8 26.5 - 33.0 pg MCHC 33.3 31.5 - 36.5 g/dL RDW 14.4 10.0 - 15.0 % Platelet Count 177 150 - 450 10e3/uL % Neutrophils 66 % % Lymphocytes 21 % % Monocytes 9 % % Eosinophils 3 % % Basophils 1 % % Immature Granulocytes 0 % NRBCs per 100 WBC 0 <1 /100 Absolute Neutrophils 7.2 1.6 - 8.3 10e3/uL Absolute Lymphocytes 2.3 0.8 - 5.3 10e3/uL Absolute Monocytes 1.0 0.0 - 1.3 10e3/uL Absolute Eosinophils 0.3 0.0 - 0.7 10e3/uL Absolute Basophils 0.1 0.0 - 0.2 10e3/uL Absolute Immature Granulocytes 0.0 <=0.4 10e3/uL Absolute NRBCs 0.0 10e3/uL Imaging: No results found. documented in this encounter Plan of Treatment Upcoming Encounters Date Type Department Care Team (Late st Contact Info) Description 05/11/2023 1:30 PM CDT Virtual Visit [address] [place] [phone] Evaristo Stack CNP [address] [place] [address] [address] [place] [address] Nallely Saravia MD [address] [place], [place] [phone] Scheduled Orders Name Type Priority Associated Diagnoses Orde r Schedule CBC with platelets Lab Routine Other iron deficiency anemia Expected: 11/10/2022 (Approximate), Expires: 07/22/2023 Ferritin Lab Routine Other iron deficiency anemia Expected: 11/10/2022 (Approximate), Expires: 07/22/2023 documented as of this encounter Visit Diagnoses Diagnosis Other iron deficiency anemia- Primary documented in this encounter Care Teams Technical Manager Chemical Plant Relationship Specialty Start Date End Date Anthony Mazariegos MD [address] [facility] [address] [place] [address] PCP - General Cardiovascular Disease 01/14/22 3 [place] [address] [place] [address] [place] [address] Hematology 02/07/22 Anthony Leyva MD [address] [place] [address] Gastroenterology 02/07/22 Verona Mclain APRN BANDAGE WINDING MACHINE OPERATOR [address] [place] [address] Assigned Cancer Care Provider 04/05/22 07/25/22 Anthony Leyva MD [address] [place] [place] [address] Assigned Gastroenterology Provider 04/12/22 Shaila Mota APRN BANDAGE WINDING MACHINE OPERATOR [address] [facility] [place] [address] Assigned Heart and Vascular Provider 05/17/22 07/18/22 documented as of this encounter
--- OUTSIDE RECORDS SUMMARY | 2023-03-09 17:11 | XMS_ITS | Encounter Summary ---
Author Name Unknown Organization [place] Address Count includes the [facility] [place] [address] Care Team Providers Care Power Plant Superintendent Name Role Phone Anthony Mazariegos MD Primary Care Provider [phone] Emmanuel Nobles MD Unavailable [phone] Anthony Leyva MD Unavailable + [phone] Anthony Leyva MD Unavailable + [phone] Evaristo Stack CNP Unavailable [phone] Anthony Mazariegos MD Unavailable [phone] Encounter Details Date Type Department Care Team (Late st Contact Info) Description 08/18/2022 11:00 AM CDT Lab [facility] [place] [phone] Chronic heart failure with preserved ejection fraction [...] 1:30 PM CDT Virtual Visit [facility] [address] [place] [phone] Evaristo Stack, LANA [address] [facility] [address] [place], [place] [phone] Nallely Saravia MD [address] [place], [place] [phone] documented as of this encounter Procedures Procedure Name Priority Date/Time Associated Diagnosis Comments BASIC METABOLIC PANEL Routine 08/18/2022 10:55 AM CDT Chronic heart failure with preserved ejection fraction (H) documented in this encounter Results * (ABNORMAL) Basic metabolic panel (08/18/2022 10:55 AM CDT) Sodium 139 136 - 145 mmol/L 08/18/2022 11:12 AM T [facility] Potassium 3.4(L) 3.5 - 5.0 mmol/L 08/18/2022 11:12 AM [facility] Chloride 96(L) 98 - 107 mmol/L 08/18/2022 11:12 AM [facility] Carbon Dioxide (CO2) 31 22 - 31 mmol/L 08/18/2022 11:12 AM [facility] Anion Gap 12 5 - 18 mmol/L 08/18/2022 11:12 AM T [facility] Urea Nitrogen 44(H) 8 - 28 mg/dL 08/18/2022 11:12 AM [facility] Creatinine 2.34(H) 0.70 - 1.30 mg/dL 08/18/2022 11:12 AM [facility] Calcium 10.9(H) 8.5 - 10.5 mg/dL 08/18/2022 11:12 AM [facility] Glucose 92 70 - 125 mg/dL 08/18/2022 11:12 AM [facility] GFR Estimate 28(L) >60 mL/min/1.7 3m2 08/18/2022 11:12 AM CDT [facility] Comment:eGFR calculated us2020 CKD-EPI equation. Blood STRUCTURE OF LEFT UPPER LIMB / Unknown Venipuncture / Unknown 08/18/2022 10:55 AM CDT 08/18/2022 10:55 AM CDT Anthony Mazariegos MD LAB - BLOOD ORDERABL ES [facility] [address] [address] [phone] documented in this encounter Visit Diagnoses Diagnosis Chronic heart failure with preserved ejection fraction (H) documented in this encounter Care Teams Power Plant Superintendent Relationship Specialty Start Date End Date Anthony Mazariegos MD [address] [facility] [address] [place] [address] PCP - General Cardiovascular Disease 01/14/22 3 Emmanuel Nobles MD [address] [place] [address] Hematology 02/07/22 Anthony Leyva MD [address] [place] [address] Gastroenterology 02/07/22 Antohny Leyva MD [address] [place] [address] Assigned Gastroenterology Provider 04/12/22 Evaristo Stack, STEAM SERVICE INSPECTOR [address] [facility] [address] [place] [address] Assigned Cancer Care Provider 07/26/22 Anthony Mazariegos MD [address] [facility] [address] [place] [address] Assigned Heart and Vascular Provider 07/19/22 09/19/22 documented as of this encounter
--- OUTSIDE RECORDS SUMMARY | 2023-03-09 17:11 | XMS_ITS | Encounter Summary ---
Author Name Unknown Organization [place] Address [facility] [place] [address] Care Team Providers Care Processing Tech Name Role Phone Anthony Mazariegos MD Primary Care Provider Emmanuel Nobles MD Unavailable [phone] Anthony Leyva MD Unavailable [phone] Verona Mclain DIRECTOR OF STRATEGY & MOBILE LAND COMMISSIONER Unavailable Anthony Leyva MD Unavailable [phone] Shaila Mota DIRECTOR OF STRATEGY & MOBILE LAND COMMISSIONER Unavailable Reason for Referral * Consultation (Routine: Next [...] ejection fraction (H) Anthony Mazariegos MD [address] [facility] [address] [place] [address] Referral ID Status Reason Start Date Expiration Date V isits Requested Visits Authorized [id number] Pending Review 07/17/2022 07/17/2023 1 1 Question Answer Preferred Location: [facility] Follow-up with: Self Scheduling Instructions: [facility] will call you to coordinate your care as prescribed by your provider. If you have concerns about scheduling, please call [phone]. Comments [facility] will call you to coordinate your care as prescribed by your provider. If you have concerns about scheduling, please call [phone]. Reason for Visit * Reason Comments Follow Up * Consultation (Routine: Next available opening) - Closed Specialty Diagnoses / Procedures Referred By Contac [...] ejection fraction (H) Anthony Mazariegos MD [address] [facility] [address] [place] [address] Referral ID Status Reason Start Date Expiration Date Visits Re quested Visits Authorized [id number] Closed 03/07/2022 03/07/2023 1 1 Encounter Details Date Type Department Care Team (Late st Contact Info) Description 07/17/2022 3:50 PM CDT Office Visit [facility] [place] [address] [facility] [address] [place] [phone] Anthony Mazariegos MD [address] [facility] [address] [place] [address] Acute on chronic diastolic heart [...] Sign Reading Time Taken Comments Blood Pressure 138/62 07/17/2022 3:27 PM CDT Pulse 68 07/17/2022 3:27 PM CDT Temperature - - Respiratory Rate 14 07/17/2022 3:27 PM CDT Oxygen Saturation - - Inhaled Oxygen Concentration - - Weight 110.2 kg (243 lb) 07/17/2022 3:27 PM CDT Height - - Body Mass Index 32.96 07/17/2022 2:06 PM CDT documented in this encounter Progress Notes * Anthony Mazariegos MD - 07/17/2022 3:50 PM CDT Images from the original note were not included. [facility] [phone] Assessment/Recommendations Patient with heart failure with preserved ejection fraction who is quite stable from a functional capacity standpoint. He really does not complain of shortness of breath with activity, orthopnea or paroxysmal nocturnal dyspnea and minimal to no peripheral edema. His renal function is slightly reduced from previous with creatinine is just over 2. We talked about potentially weaning off some of thediuretics to see if we can get away with that, physically from a renal function standpoint. To thatend I have asked him to go to metolazone 2.5 mg once a week and to call us in a couple of weeks andmaybe we can get rid of the metolazone altogether. He will continue to watch his weights daily and if he starts to develop peripheral edema, weight gain, or shortness of breath, we will have to revise our strategy. He is hematologic disorder seems quite stable with good hemoglobins which is quite beneficial as well. This played a large role in his recovery from overt heart failure. I have not change any of his other medications at this time but we will need to monitor his potassium if we decrease his diuretics as well. 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 He will be followed up in our heart failure clinic in August and I will see him in the fall. Thank you for allowing us to participate in his care. 40 minutes spent with chart review, patient visit, documentation and telephone order clerk room service. History of Present Illness/Subjective Mr. Tutu Ngo is a 81 year old male with known heart failure with preserved ejection fraction. He presented with severe shortness of breath and fluid overload and dramatic anemia. 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 Myocardial ischemia was evaluated with a pharmacologic nuclear study in 2019 which was unremarkable. Treatment of his anemia and iron stores has been very helpful. He denies orthopnea, paroxysmal nocturnal dyspnea, peripheral edema, palpitations, chest pain, syncope or near syncopal episodes. He states that he feels great. Physical Examination Review of Systems BP 138/62 (BP Location: Left arm, Patient Position: Sitting, Cuff Size: Adult Large) Pulse 68 Resp 14 Wt 110.2 kg (243 lb) BMI 32.96 kg/m?? Body mass index is 32.96 kg/m??. Wt Readings from Last 3 Encounters: 07/17/22 110.2 kg (243 lb) 07/17/22 110.2 kg (243 lb) 05/12/22 109.5 kg (241 lb 8 oz) General Appearance: Alert, cooperative and in no acute distress. ENT/Mouth: Colony/moist oral mucosa EYES: no scleral icterus, normal conjunctivae Neck: JVP normal. No Hepatojugular reflux. Thyroid not visualized. Chest/Lungs: Lungs are clear to auscultation, equal chest wall expansion. Cardiovascular: S1, S2 with 1/6 systolic murmur , no clicks or rubs. Brachial, radial and posteriortibial pulses are intact and symetric. No carotid bruits noted Abdomen: Nontender. BS+. Extremities: No cyanosis, clubbing and trace ankle edema Skin: no xanthelasma, warm. Neurologic: normal arm movement bilateral, no tremors Psychiatric: Appropriate affect. Enc Vitals BP: 138/62 Pulse: 68 Resp: 14 Weight: 110.2 kg (243 lb) Medical History Surgical History Family History Social [...] PLACEMENT; Surgeon: Jose Alberto Diallo MD; Location: [facility] ??? ESOPHAGOSCOPY, GASTROSCOPY, DUODENOSCOPY (EGD), [...] Smokeless tobacco: Never Vaping Use ??? Vaping status: Never Used Substance and Sexual Activity ??? Alcohol use: Yes Comment: very rare ??? Drug use: No ??? Sexual activity: Not Currently Other Topics Concern ??? Parent/sibling w/ CABG, [place] or angioplasty before 65F 55M? Not Asked [...] mg ??? metolazone (ZAROXOLYN) 2.5 MG tablet Once weekly 24 tablet 3 ??? potassium chloride ER (KLOR-CON M) 10 [...] Enzymes/BNP/TSH/INR Lab Results Component Value Date BUN 44 (H) 07/17/2022 NA 138 07/17/2022 CO2 31 07/17/2022 Lab Results Component Value Date WBC 10.9 07/17/2022 HGB 12.4 (L) 07/17/2022 HCT 37.2 (L) 07/17/2022 MCV 95 07/17/2022 PLT 177 07/17/2022 Lab Results Component Value Date TSH 1.56 12/16/2021 INR 1.67 (H) 12/12/2021 documented in this encounter Plan of Treatment Upcoming Encounters Date Type Department Care Team (Late st Contact Info) Description 05/11/2023 1:30 PM CDT Virtual Visit [facility] [address] [facility] [address] [place] [address] Evaristo Stack, LANA [address] [facility] [address] [place] [address] Nallely Saravia MD [address] [place] [address] Scheduled Referrals Name Type Priority Associated Diagnoses [...] failure with preserved ejection fraction (H) Expected: 01/17/2023 (Approximate), Expires: 07/18/2023 documented as of this encounter Visit Diagnoses [...] (H) documented in this encounter Care Teams Processing Tech Relationship Specialty Start Date End Date Anthony Mazariegos MD [address] [facility] [address] [place] [address] PCP - General Cardiovascular Disease 01/14/22 3 [place] [address] [place] [address] [place] [address] Hematology 02/07/22 Anthony Leyva MD [address] [place] [address] Gastroenterology 02/07/22 Verona Mclain APRN LAND COMMISSIONER [address] [place] [address] Assigned Cancer Care Provider 04/05/22 07/25/22 Anthony Leyva MD [address] [place] [address] Assigned Gastroenterology Provider 04/12/22 Shaila Mota APRN LAND COMMISSIONER [address] [facility] [place], [place] [phone] Assigned Heart and Vascular Provider 05/17/22 07/18/22 documented as of this encounter
--- OUTSIDE RECORDS SUMMARY | 2023-03-09 17:11 | XMS_ITS | Encounter Summary ---
Author Name Unknown Organization [place] Address [facility]0 [facility] [place] [address] Care Team Providers Care Amusement Park Entertainer Name Role Phone Anthony Mazariegos MD Primary Care Provider + [phone] Emmanuel Nobles MD Unavailable [phone] Anthony Leyva MD Unavailable + [phone] Anthony Leyva MD Unavailable + [phone] Evaristo Stack CNP Unavailable [phone] Anhtony Mazariegos MD Unavailable [phone] Encounter Details Date Type Department Care Team (Latest Contact Info) Description 09/15/2022 Travel Social History Tobacco Use Types Packs/Day [...] Description 05/11/2023 1:30 PM CDT Virtual Visit [address] [place] [phone] Evaristo Stack CNP [address] [place], [place] [phone] Nallely Saravia MD [address] [place] [address] documented as of this encounter Visit Diagnoses Not on filedocumented in this encounter Care Teams Amusement Park Entertainer Relationship Specialty Start Date End Date Anthony Mazariegos MD 1600 [facility] 200 [place], [place] [phone] PCP - General Cardiovascular Disease 01/14/22 3 Emmanuel Nobles MD [facility] [address] [place] [phone] Hematology 02/07/22 Anthony Leyva MD [address] [place] [address] Gastroenterology 02/07/22 Anthony Leyva MD [address] [place] [address] Assigned Gastroenterology Provider 04/12/22 Evaristo Stack CNP [facility] [address] [place] [address] Assigned Cancer Care Provider 07/26/22 Anthony Mazariegos MD [address] [facility] 200 [place] [address] Assigned Heart and Vascular Provider 07/19/22 09/19/22 documented as of this encounter
--- OUTSIDE RECORDS SUMMARY | 2023-03-09 17:12 | XMS_ITS | Encounter Summary ---
Author Name Unknown Organization [place] Address [facility] [place] [address] Care Team Providers Care Mirror Fabrication Supervisor Name Role Phone Anthony Mazariegos MD Primary Care Provider [phone] Emmanuel Nobles MD Unavailable [phone] Anthony Leyva MD Unavailable + [phone] Anthony Mazariegos MD Unavailable [phone] Verona Mclain TRUSS PULLER HELPER DIGITAL MEDIA COORDINATOR Unavailable Anthony Leyva MD Unavailable + [phone] Encounter Details Date Type Department Care Team (Late st Contact Info) Description 04/21/2022 Orders Only [facility] [place] [address] [facility] [address] [place] [address] Yajaira Mclaughlin, RN Hypokalemia Social History Tobacco Use Types Packs/Day [...] suspected to have Coronavirus/COVID-19? No / Unsure 04/04/2022 9:58 AM DEPARTMENT MGR documented as of this encounter Plan of Treatment Upcoming Encounters Date Type Department Care Team (Late st Contact Info) Description 05/11/2023 1:30 PM CDT Virtual Visit [facility] [address] [facility] [address] [place] [phone] Evaristo Stack, DIGITAL MEDIA COORDINATOR [address] [facility] [address] [place], [place] [phone] Nallely Saravia MD [address] [place], [place] [phone] documented as of this encounter Results * (ABNORMAL) Basic metabolic panel (05/12/2022 9:30 AM CDT) Sodium 139 136 - 145 mmol/L 05/12/2022 9:49 AM [facility] Potassium 3.6 3.5 - 5.0 mmol/L 05/12/2022 9:49 AM [facility] Chloride 97(L) 98 - 107 mmol/L 05/12/2022 9:49 AM [facility] Carbon Dioxide (CO2) 28 22 - 31 mmol/L 05/12/2022 9:49 AM [facility] Anion Gap 14 5 - 18 mmol/L 05/12/2022 9:49 AM [facility] Urea Nitrogen 41(H) 8 - 28 mg/dL 05/12/2022 9:49 AM [facility] Creatinine 2.20(H) 0.70 - 1.30 mg/dL 05/12/2022 9:49 AM [facility] Calcium 10.4 8.5 - 10.5 mg/dL 05/12/2022 9:49 AM [facility] Glucose 102 70 - 125 mg/dL 05/12/2022 9:49 AM [facility] GFR Estimate 30(L) >60 mL/min/1.7 3m2 05/12/2022 9:49 AM [facility] Comment:eGFR calculated usin g 2020 CKD-EPI equation. Blood STRUCTURE OF LEFT UPPER LIMB / Unknown Venipuncture / Unknown 05/12/2022 9:30 AM CDT 05/12/2022 9:32 AM CDT Anthony Mazariegos MD LAB - BLOOD ORDERABL ES [facility] [address] [facility] [address] [place] [address] [phone] documented in this encounter Visit Diagnoses Diagnosis Hypokalemia Hypopotassemia documented in this encounter Care Teams Mirror Fabrication Supervisor Relationship Specialty Start Date End Date Anthony Mazariegos MD [address] [facility] 200 [place] [address] PCP - General Cardiovascular Disease 01/14/22 3 Emmanuel Nobles MD [address] [place] [address] Hematology 02/07/22 Anthony Leyva MD [address] [place] [address] Gastroenterology 02/07/22 Anthony Mazariegos MD [address] [facility] 200 [place] [address] Assigned Heart and Vascular Provider 03/08/22 05/16/22 Verona Mclain APRN DIGITAL MEDIA COORDINATOR [address] [place] [address] Assigned Cancer Care Provider 04/05/22 07/25/22 Anthony Leyva MD [address] [place] [address] Assigned Gastroenterology Provider 04/12/22 documented as of this encounter
--- OUTSIDE RECORDS SUMMARY | 2023-03-09 17:12 | XMS_ITS | Encounter Summary ---
Author Name Unknown Organization [place] Address [address] [facility] [place] [address] Care Team Providers Care Die Casting Machine Setter Name Role Phone Anthony Mazariegos MD Primary Care Provider + [phone] Emmanuel Nobles MD Unavailable [phone] Anthony Leyva MD Unavailable + [phone] Anthony Mazariegos MD Unavailable [phone] Encounter Details Date Type Department Care Team (Latest Contact Info) Description 04/04/2022 Travel Social History Tobacco Use Types Packs/Day [...] Coronavirus/COVID-19? No / Unsure 04/04/2022 9:58 AM ROBOTICS SPECIALIST documented as of this encounter Plan of Treatment Upcoming Encounters Date Type Department Care Team (Late st Contact Info) Description 05/11/2023 1:30 PM CDT Virtual Visit [place] [id number] [facility] [address] [place] [address] Evaristo Stack, LANA [address] [place] [address] [address] [place] [address] Nallely Saravia MD [address] [place] [address] documented as of this encounter Visit Diagnoses Not on filedocumented in this encounter Care Teams Die Casting Machine Setter Relationship Specialty Start Date End Date Anthony Mazariegos MD [address] [facility] 200 [place] [address] PCP - General Cardiovascular Disease 01/14/22 3 [place] [address] [place] [address] [place] [address] Hematology 02/07/22 Anthony Leyva MD [address] [place] [address] Gastroenterology 02/07/22 Anthony Mazariegos MD [address] [facility] 200 [place] [address] Assigned Heart and Vascular Provider 03/08/22 05/16/22 documented as of this encounter
--- OUTSIDE RECORDS SUMMARY | 2023-03-09 17:12 | XMS_ITS | Encounter Summary ---
Author Name Unknown Organization [place] Address [address] [place] [address]. [place] [address] Care Team Providers Care Wearing Apparel Assembler Name Role Phone Anthony Mazariegos MD Primary Care Provider + [phone] Emmanuel Nobles MD Unavailable [phone] Anthony Leyva MD Unavailable + [phone] Anthony Mazariegos MD Unavailable [phone] Reason for Visit * Reason Onset Date Comments *-*INCOMING RECORDS*-* 04/03/2022 Encounter Details Date Type Department Care Team (Late st Contact Info) Description 04/03/2022 PRE VISIT [facility] [address] [address] Anthony Leyva MD [address] [place] [address] *-*INCOMING RECORDS*-* Social History Tobacco Use Types Packs/Day Years Used Date Smoking Tobacco: Never Smokeless Tobacco: Never Alcohol Use Standard Drinks/Week Comments Yes 0 (1 standard drink = 0.6 oz pur e alcohol) very rare Sex and Gender Information Value Date Recorded Sex Assigned at Not on file Gender Identity Not on file Sexual Orientation Not on file documented as of this encounter Miscellaneous Notes * Telephone Encounter - Lucila Snell - 02/10/2022 2:04 PM CST 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, unspecified hepatic cirrhosis type Appt Date: 04.03.2022 NOTES STATUS DETAILS OFFICE NOTE from referring provider Internal 01.31.2022 Emmanuel Nobles MD OFFICE NOTES from other specialists DISCHARGE SUMMARY from hospital MEDICATION LIST Internal LIVER BIOSPY (IF APPLICABLE) PATHOLOGY REPORTS IMAGING ENDOSCOPY (IF AVAILABLE) Internal 12.12.2021 COLONOSCOPY (IF AVAILABLE) Internal 12.12.[address] OF ABDOMEN Internal 12.14.2021 CT CHEST ABDOMEN PELVIS W/O CONTRAST MRI OF LIVER FIBROSCAN, US ELASTOGRAPHY, FIBROSIS SCAN, MR ELASTOGRAPHY LABS HEPATIC PANEL (LIVER PANEL) BASIC METABOLIC PANEL Internal 01.08.2022 COMPLETE METABOLIC PANEL Internal 01.31.2022 COMPLETE BLOOD COUNT (CBC) Internal 01.31.2022 INTERNATIONAL NORMALIZED RATIO (INR) Internal 12.12.2021 HEPATITIS C ANTIBODY HEPATITIS C VIRAL LOAD/PCR HEPATITIS C GENOTYPE HEPATITIS B SURFACE ANTIGEN HEPATITIS B SURFACE ANTIBODY HEPATITIS B DNA QUANT LEVEL HEPATITIS B CORE ANTIBODY WORKER documented in this encounter Plan of Treatment Upcoming Encounters Date Type Department Care Team (Late st Contact Info) Description 05/11/2023 1:30 PM CDT Virtual Visit [facility] [address] [place] [address] [address] [place] [address] Evaristo Stack, LANA [address] [facility] [address] [place], [place] [phone] Nallely Saravia MD [address] [place], [place] [phone] documented as of this encounter Visit Diagnoses Not on filedocumented in this encounter Care Teams Wearing Apparel Assembler Relationship Specialty Start Date End Date Anthony Mazariegos MD 1600 [facility] 200 [place], [place] [phone] PCP - General Cardiovascular Disease 01/14/22 3 Emmanuel Nobles MD [address] [facility] [place], [place] [phone] Hematology 02/07/22 Anthony Leyva MD [address] [place] [address] Gastroenterology 02/07/22 Anthony Mazariegos MD [address] [facility] [address] [place] [address] Assigned Heart and Vascular Provider 03/08/22 05/16/22 documented as of this encounter
--- OUTSIDE RECORDS SUMMARY | 2023-03-09 17:12 | XMS_ITS | Encounter Summary ---
Author Name Unknown Organization [place] Address [facility] [place] [address] Care Team Providers Care Plugger Man Name Role Phone Anthony Mazariegos MD Primary Care Provider Emmanuel Nobles MD Unavailable [phone] Anthony Leyva MD Unavailable [phone] Verona Mclain VOCATIONAL REHABILITATION SUPERVISOR ELECTRONICS INSTALLER Unavailable Anthony Leyva MD Unavailable [phone] Shaila Mota VOCATIONAL REHABILITATION SUPERVISOR ELECTRONICS INSTALLER Unavailable Encounter Details Date Type Department Care Team (Late st Contact Info) Description 05/20/2022 Telephone [facility] Heart [facility] [address] [facility] [address] [place] [address] Ngozi Hester, RN Social History Tobacco Use Types Packs/Day Years [...] AM CDT documented as of this encounter Miscellaneous Notes * Telephone Encounter - Ngozi Hester RN - 05/20/2022 9:55 AM CDT Eliquis dose was increased to 5mg on 05/12/22, and new Rx was sent then. Resent the new Rx to [place] pharmacy, per his request. jl * Telephone Encounter - Ngozi Hester RN - 05/20/2022 9:54 AM CDT ----- Message from Benita Barrera sent at 05/20/2022 9:45 AM CDT ----- Regarding: JASPER pt Patient has already contacted their pharmacy. The medication or refill issue is below: Ordering Director Of Collections: JASPER pt Medication: Eliquis - pt told the pharmacy he increased his dose and response they received said inappropriate? Preferred Pharmacy/City: [facility] Phone Number for Patient: Additional Info: documented in this encounter Plan of Treatment Upcoming Encounters Date Type Department Care Team (Late st Contact Info) Description 05/11/2023 1:30 PM CDT Virtual Visit [address] [place] [address] Evaristo Stack, LANA [address] [place] [address] [address] [place], [place] [id number] Nallely Saravia MD [address] [place] [address] documented as of this encounter Visit Diagnoses Diagnosis Permanent atrial fibrillation (H) Atrial fibrillation documented in this encounter Care Teams Plugger Man Relationship Specialty Start Date End Date Anthony Mazariegos MD [address] [place] [address] [address] [place], [place] [id number] PCP - General Cardiovascular Disease 01/14/22 3 Emmanuel Nobles MD [address] [facility] [place] [address] Hematology 02/07/22 Anthony Leyva MD [address] [place] [address] Gastroenterology 02/07/22 Verona Mclain APRN ELECTRONICS INSTALLER [address] [place] [address] Assigned Cancer Care Provider 04/05/22 07/25/22 Anthony Leyva MD [address] [place] [address] Assigned Gastroenterology Provider 04/12/22 Shaila Mota APRN ELECTRONICS INSTALLER [address] [facility], [address] [place] [address] Assigned Heart and Vascular Provider 05/17/22 07/18/22 documented as of this encounter
--- OUTSIDE RECORDS SUMMARY | 2023-03-09 17:12 | XMS_ITS | Encounter Summary ---
Author Name Unknown Organization [place] Address [address] [facility] [place] [address] Care Team Providers Care Storeroom Supervisor Name Role Phone Anthony Mazariegos MD Primary Care Provider Emmanuel Nobles MD Unavailable [phone] Anthony Leyva MD Unavailable [phone] Anthony Mazariegos MD Unavailable [phone] Verona Mclain BRIQUETTE MAKER BULL DRIVER Unavailable Anthony Leyva MD Unavailable + [phone] Encounter Details Date Type Department Care Team (Late st Contact Info) Description 05/12/2022 Orders Only [facility] [address] [place] [phone] Alie Ndiaye Chronic heart failure with preserved ejection fraction [...] Virtual Visit [facility] [address] [place] [phone] Evaristo Stack, BULL DRIVER [address] [facility] [address] [place], [place] [phone] Nallely Saravia MD [address] [place], [place] [phone] Scheduled Orders Name Type Priority Associated Diagnoses Orde r Schedule Basic metabolic panel Lab Routine Chronic heart failure with preserved ejection fraction (H) Expected: 05/27/2022 (Approximate), Expires: 05/14/2023 documented as of this encounter Procedures Procedure Name Priority Date/Time Associated Diagnosis Comments BASIC METABOLIC PANEL Routine 05/12/2022 9:30 AM CDT Hypokalemia documented in this encounter Results * (ABNORMAL) Basic metabolic panel (05/12/2022 9:30 AM CDT) Sodium 139 136 - 145 mmol/L 05/12/2022 9:49 AM CDT [facility] Potassium 3.6 3.5 - 5.0 mmol/L 05/12/2022 9:49 AM CDT [facility] Chloride 97(L) 98 - 107 mmol/L 05/12/2022 9:49 AM CDT [facility] Carbon Dioxide (CO2) 28 22 - 31 mmol/L 05/12/2022 9:49 AM CDT [facility] Anion Gap 14 5 - 18 mmol/L 05/12/2022 9:49 AM CDT [facility] Urea Nitrogen 41(H) 8 - 28 mg/dL 05/12/2022 9:49 AM CDT [facility] Creatinine 2.20(H) 0.70 - 1.30 mg/dL 05/12/2022 9:49 AM CDT [facility] Calcium 10.4 8.5 - 10.5 mg/dL 05/12/2022 9:49 AM CDT [facility] Glucose 102 70 - 125 mg/dL 05/12/2022 9:49 AM CDT [facility] GFR Estimate 30(L) >60 mL/min/1.7 3m2 05/12/2022 9:49 AM CDT [facility] Comment:eGFR calculated usin 2020 CKD-EPI equation. Blood STRUCTURE OF LEFT UPPER LIMB / Unknown Venipuncture / Unknown 05/12/2022 9:30 AM CDT 05/12/2022 9:32 AM CDT Anthony Mazariegos MD LAB - BLOOD ORDERABL ES [facility] [address] [place] [address] [phone] documented in this encounter Visit Diagnoses Diagnosis Chronic heart failure with preserved ejection fraction (H)- Primary Hypokalemia Hypopotassemia documented in this encounter Care Teams Storeroom Supervisor Relationship Specialty Start Date End Date Anthony Mazariegos MD [address] [facility] [address] [place] [address] PCP - General Cardiovascular Disease 01/14/22 3 Emmanuel Nobles MD [address] [facility] [place] [address] Hematology 02/07/22 Anthony Leyva MD [address] [place] [address] Gastroenterology 02/07/22 Anthony Mazariegos MD [address] [facility] [address] [place] [address] Assigned Heart and Vascular Provider 03/08/22 05/16/22 Verona Mclain APRN BULL DRIVER [address] [place] [address] Assigned Cancer Care Provider 04/05/22 07/25/22 Anthony Leyva MD 9 [place] [address] Assigned Gastroenterology Provider 04/12/22 documented as of this encounter
--- OUTSIDE RECORDS SUMMARY | 2023-03-09 17:12 | XMS_ITS | Encounter Summary ---
Author Name Unknown Organization [place] Address [facility] [place] [address] Care Team Providers Care Post Exchange Manager Name Role Phone Anthony Mazariegos MD Primary Care Provider Emmanuel Nobles MD Unavailable [phone] Anthony Leyva MD Unavailable [phone] Verona Mclain SAMPLER PICKUP AXLE AND FRAME MECHANIC Unavailable Anthony Leyva MD Unavailable [phone] Shaila Mota SAMPLER PICKUP AXLE AND FRAME MECHANIC Unavailable Evaristo Stack AXLE AND FRAME MECHANIC Unavailable [phone] Anthony Mazariegos MD Unavailable [phone] Shaila Mota APRN AXLE AND FRAME MECHANIC Unavailable Emil Cope MD Primary Care Provider Anthony Mazariegos MD Unavailable Reason for Visit * Reason Comments Medication Refill Encounter Details Date Type Department Care Team (Late st Contact Info) Description 05/17/2022 Refill [facility] [address] [facility] [address] [place] [address] Anthony Mazariegos MD [address] [facility] [address] [place] [address] Medication Refill Social History Tobacco Use Types [...] Description 05/11/2023 1:30 PM CDT Virtual Visit [address] [place] [phone] Evaristo Stack, AXLE AND FRAME MECHANIC [address] [place] [address] [address] [place] [address] Nallely Saravia MD [address] [place], [place] [phone] documented as of this encounter Visit Diagnoses Diagnosis Acute on chronic diastolic heart failure (H) Acute on chronic diastolic heart failure Stage 3 chronic kidney disease, unspecified whether stage 3a or 3b CKD (H) Essential hypertension Unspecified essential hypertension documented in this encounter Care Teams Post Exchange Manager Relationship Specialty Start Date End Date Anthony Mazariegos MD [address] [facility] 200 [place] [address] PCP - General Cardiovascular Disease 01/14/22 3 Emil Cope MD [facility] [address] [place] [address] PCP - General Emergency Medicine 09/30/22 Emmanuel Nobles MD [address] [place] [address] Hematology 02/07/22 Anthony Leyva MD 909 [place] [address] Gastroenterology 02/07/22 Verona Mclain APRN AXLE AND FRAME MECHANIC [address] [place] [address] Assigned Cancer Care Provider 04/05/22 07/25/22 Anthony Leyva MD [address] [place] [address] Assigned Gastroenterology Provider 04/12/22 Shaila Mota APRN AXLE AND FRAME MECHANIC [address] [place] [address], [address] [place] [address] Assigned Heart and Vascular Provider 05/17/22 07/18/22 Evaristo Stack, LANA [address] [facility] 130 [place] [address] Assigned Cancer Care Provider 07/26/22 Anthony Mazariegos MD [address] [place] [address] 200 [place] [address] Assigned Heart and Vascular Provider 07/19/22 09/19/22 Shaila Mota APRN AXLE AND FRAME MECHANIC [address] [place] [address], [address] [place] [address] Assigned Heart and Vascular Provider 09/20/22 01/16/23 Anthony Mazariegos MD [address] [facility] [address] [place] [address] Assigned Heart and Vascular Provider 01/17/23 documented as of this encounter
--- OUTSIDE RECORDS SUMMARY | 2023-03-09 17:12 | XMS_ITS | Encounter Summary ---
Author Name Unknown Organization [place] Address [address] [facility] [place] [address] Care Team Providers Care Insole Department Worker Name Role Phone Anthony Mazariegos MD Primary Care Provider Emmanuel Nobles MD Unavailable [phone] Anthony Leyva MD Unavailable [phone] Anthony Mazariegos MD Unavailable Reason for Visit * Reason Comments Hematology Anemia, iron deficie ncy; Iron deficiency anemia due to chronic blood loss Encounter Details Date Type Department Care Team (Late st Contact Info) Description 04/04/2022 11:15 AM WEB FEEDER Oncology Visit [address], [address] [place] [address] Eavristo Stack, LANA [address] [facility] [address] [place], [place] [phone] Verona Mclain APRN INSTANT POTATO PROCESSING SUPERVISOR [address] [place], [place] [phone] Other iron deficiency anemia (Primary Dx); Myelodysplastic syndrome (H) Social History [...] Coronavirus/COVID-19? No / Unsure 04/04/2022 9:58 AM WEB FEEDER documented as of this encounter Last Filed Vital Signs Vital Sign Reading Time Taken Comments Blood Pressure 129/72 04/04/2022 10:03 AM WEB FEEDER Pulse 88 04/04/2022 10:03 AM WEB FEEDER Temperature - - Respiratory Rate 16 04/04/2022 10:03 AM WEB FEEDER Oxygen Saturation 94% 04/04/2022 10:03 AM WEB FEEDER Inhaled Oxygen Concentration - - Weight 107.5 kg (237 lb) 04/04/2022 10:03 AM WEB FEEDER Height 182.9 cm (6') 04/04/2022 10:03 AM WEB FEEDER Body Mass Index 32.14 04/04/2022 10:03 AM WEB FEEDER documented in this encounter Progress Notes * Verona Mclain APRN INSTANT POTATO PROCESSING SUPERVISOR - 04/04/2022 11:15 AM CST [facility] Hematology and Oncology Progress Note Patient: Tutu Ngo Date of Service: Apr 04, 2022 Reason for Visit Chief Complaint Patient presents with ??? Hematology Anemia, iron deficiency; Iron deficiency anemia due to chronic blood loss Assessment and Plan Cancer Staging No matching staging information was found for the patient. 1. MDS, IPSS-R 3.5(anemia, hypercellular marrow, normal cytogenetics, blasts increased but less than 5%): likely low grade/borderline MDS. Doesn't appear to be his main issue. I did tell them that ifhis WBC, Platelets start getting abnormal or if he anemia gets worse or doesn't respond to iron infusions, we may have to repeat bone marrow biopsy. Will continue to monitor labs every 3 months. 2. Iron deficiency anemia: has required iron sucrose. Last received from December 2021 until January 2022. Has responded nicely. His ferritin has gone from 4 in January 2022 to 77 on 04/03/22. His hemoglobin has gone from 7.5 in November to 12.8 on 04/03/22. He may need intermittent iron infusions going forward. Likely not absorbing properly. Had full GI workup and no bleeding found. Patient does live over 40 miles away in [place]. At this time I told him it would be totally appropriate to get his labs drawn at the [place] clinic and then faxed up to us before his appointment. He is meeting with his tin stacker in June so he would like to have an appointment on the same day. We will send lab orders, CBC, CMP, ferritin to the [place] lab so they will be drawn a couple of days before his appointment with either Dr. Torres or Evaristo. ECOG Performance 1 - Can't do physically strenuous work, but fully ambyulatory and can do light sedentary work Distress Screening (within last 30 days) No data recorded Pain Pain Score: No Pain (0) Problem List Patient Active Problem List Diagnosis ??? Arthritis of knee, left ??? Anemia, iron deficiency ??? CKD (chronic kidney disease) stage 3, GFR 30-59 ml/min (H) ??? Essential hypertension ??? Hyperlipidemia ??? Single kidney ??? Acute kidney failure (H) ??? CAD (coronary artery disease) ??? Cryptogenic cirrhosis (H) ??? Iron deficiency anemia due to chronic blood loss ??? Iron malabsorption ??? (HFpEF) heart failure with preserved ejection fraction (H) ??? VIANNEY (obstructive sleep apnea) ??? Permanent atrial fibrillation (H) History of Present Illness From Dr. Nobles's last note- From 12/12/2021-12/01/2021, he was hospitalized for hypotension, iron deficiency, abrupt anemia anddiastolic heart failure. Bone marrow biopsy revealed a hypercellular bone marrow with high normal CD34 positive blasts with increased CD56 suggestive of a myelodysplastic syndrome with increased B int erstitial cells associated with normal chromosomes, MDS-NGS, FISH, and flow cytometry. Decreased bone marrow iron stores were noted with peripheral blood counts supporting a diagnosis of iron deficiency anemia associate with erythropoietin level 60 and a creatinine of 2.38. Inpatient EGD/colonoscopy revealed no apparent bleeding source. CT enterography revealed no retroperitoneal hematoma or gross small bowel pathology. JAK2 mutation was negative, CALR, MPL negative. Vitamin B12 normal. Thyroid and copper levels normal. Pt had a capsule endoscopy that showed concerns for ectasia within the small bowel of unclear significance. A CT of the abdomen was performed during this hospitalization which commented on nodular contours of the liver. There was also the presence of small volume ascites, and a normal-sized spleen. Pt met with GI earlier this week and they initially feel like pt does not have cirrhosis. They are awaiting an ultrasound. Overall patient states that he has been feeling pretty good. He feels like his anemia has gotten better and he does not feel as symptomatic as he did in November. He does have some mild chronic fatigue. He denies any fevers or infectious complaints. Denies any bleeding or bruising complications. He denies any new bone or back pain. He states he does not eat a lot of red meat or iron products because he does try to take care of his kidneys since he only has 1. ?? Review of Systems Pertinent items are noted in HPI. Past History Past Medical History: Diagnosis Date ??? [...] ??? VIANNEY on CPAP ??? Renal disease PHYSICAL EXAM BP 129/72 Pulse 88 Resp 16 Ht 1.829 m (6') Wt 107.5 kg (237 lb) SpO2 94% BMI 32.14 kg/m?? GENERAL: no acute distress. Cooperative in conversation. Here with and daughter. Mask on RESP: Regular respiratory rate. No expiratory wheezes MUSCULOSKELETAL: no bilateral leg swelling NEURO: non focal. Alert and oriented x3. PSYCH: within normal limits. No depression or anxiety. SKIN: exposed skin is dry intact. Lab Results No results found for this or any previous visit (from the past 168 hour(s)). Reviewed lab work that was drawn on April 01, 2022 at [facility]. Hemoglobin is 12.8, white blood cell count normal at 8.3, platelet count normal at 190. Iron was 83, ferritin 77, saturation percentage 23% with total iron binding capacity at 361. All of these are within normal limits. Potassium slightly low at 3.4, creatinine at his baseline at 2.0. Calcium normal. Liver function test fairly normal. Imaging No results found. Total time spent with patient in face to face time, chart review and documentation was 40 minutes. Signed by: Verona Mclain APRN CNP FEEDER * Silvia Quiles - 04/04/2022 11:15 AM CST Oncology Rooming Note April 04, 2022 10:16 AM Tutu Ngo is a 81 year old male who presents for: Chief Complaint Patient presents with ??? Hematology Anemia, iron deficiency; Iron deficiency anemia due to chronic blood loss Initial Vitals: BP 129/72 Pulse 88 Resp 16 Ht 1.829 m (6') Wt 107.5 kg (237 lb) SpO2 94% BMI 32.14 kg/m?? Estimated body mass index is 32.14 kg/m?? as calculated from the following: Height as of this encounter: 1.829 m (6'). Weight as of this encounter: 107.5 kg (237 lb). Body surface area is 2.34 meters squared. No Pain (0) Comment: Data Unavailable No LMP for male patient. Allergies reviewed: Yes Medications reviewed: Yes Medications: Medication refills not needed today. Pharmacy name entered into [facility]: [place], [place] - [address] [place] [address] Clinical concerns: labs results Silvia Quiles FEEDER documented in this encounter Plan of Treatment Upcoming Encounters Date Type Department Care Team (Late st Contact Info) Description 05/11/2023 1:30 PM CDT Virtual Visit [address] [place] [address] Evaristo Stack, INSTANT POTATO PROCESSING SUPERVISOR [address] [facility] [address] [place] [address] Nallely Saravia MD [address] [place] [address] Scheduled Orders Name Type Priority Associated Diagnoses Orde r Schedule CBC with Platelets & Differential Lab Panel Routine Other iron deficiency anemia Myelodysplastic syndrome (H) every 3 months for 2 Occurrences starting 04/04/2022 until 04/04/2023, 1 completed Ferritin Lab Routine Other iron deficiency anemia Myelodysplastic syndrome (H) every 3 months for 2 Occurrences starting 04/04/2022 until 04/04/2023, 1 completed Comprehensive metabolic panel (BMP + Alb, Alk Phos, ALT, AST, Total. Bili, TP) Lab Routine Other iron deficiency anemia Myelodysplastic syndrome (H) every 3 months for 2 Occurrences starting 04/04/2022 until 04/04/2023, 1 completed documented as of this encounter Results * (ABNORMAL) Comprehensive metabolic panel (BMP + Alb, Alk Phos, ALT, AST, Total. Bili, TP) (07/17/2022 1:36 PM CDT) Sodium 138 136 - 145 mmol/L 07/17/2022 2:10 PM CDT [facility] Potassium 3.6 3.5 - 5.0 mmol/L 07/17/2022 2:10 PM CDT [facility] Chloride 97(L) 98 - 107 mmol/L 07/17/2022 2:10 PM CDT [facility] Carbon Dioxide (CO2) 31 22 - 31 mmol/L 07/17/2022 2:10 PM CDT [facility] Anion Gap 10 5 - 18 mmol/L 07/17/2022 2:10 PM CDT [facility] Urea Nitrogen 44(H) 8 - 28 mg/dL 07/17/2022 2:10 PM CDT [facility] Creatinine 2.32(H) 0.70 - 1.30 mg/dL 07/17/2022 2:10 PM CDT [facility] Calcium 10.2 8.5 - 10.5 mg/dL 07/17/2022 2:10 PM CDT [facility] Glucose 92 70 - 125 mg/dL 07/17/2022 2:10 PM CDT [facility] Alkaline Phosphatase 90 45 - 120 U/L 07/17/2022 2:10 PM CDT [facility] AST 21 0 - 40 U/L 07/17/2022 2:10 PM CDT [facility] ALT 22 0 - 45 U/L 07/17/2022 2:10 PM CDT [facility] Protein Total 7.7 6.0 - 8.0 g/dL 07/17/2022 2:10 PM CDT [facility] Albumin 3.9 3.5 - 5.0 g/dL 07/17/2022 2:10 PM CDT [facility] Bilirubin Total 0.6 0.0 - 1.0 mg/dL 07/17/2022 2:10 PM CDT [facility] GFR Estimate 28(L) >60 mL/min/1.7 3m2 07/17/2022 2:10 PM CDT [facility] Comment:eGFR calculated usin 2020 CKD-EPI equation. Blood BLOOD SPECIMEN / Unknown Venipuncture / Unknown 07/17/2022 1:36 PM CDT 07/17/2022 1:46 PM CDT Verona Mclain APRN INSTANT POTATO PROCESSING SUPERVISOR LAB - BLOOD O RDERABLES [facility] [address] [facility] [place], [place] [id number] [place] [address] * Ferritin (07/17/2022 1:36 PM CDT) Pathologist [facility] Ferritin 116 31 - 409 ng/mL 07/17/2022 9:12 PM CDT [facility] Blood BLOOD SPECIMEN / Unknown Venipuncture / Unknown 07/17/2022 1:36 PM CDT 07/17/2022 1:46 PM CDT Verona Mclain APRN INSTANT POTATO PROCESSING SUPERVISOR LAB - BLOOD O RDERABLES [facility] [place] [facility] [address] [facility] [address], [address] [place] [address], [facility] [phone] documented in this encounter Visit Diagnoses Diagnosis Other iron deficiency anemia- Primary Myelodysplastic syndrome (H) Myelodysplastic syndrome, unspecified documented in this encounter Care Teams Insole Department Worker Relationship Specialty Start Date End Date Anthony Mazariegos MD [address] [facility] 200 [place] [address] PCP - General Cardiovascular Disease 01/14/22 3 Emmanuel Nobles MD [address] [place] [address] [place] [address] Hematology 02/07/22 Anthony Leyva MD [address] [place] [address] Gastroenterology 02/07/22 Anthony Mazariegos MD [address] [facility] 200 [place] [address] Assigned Heart and Vascular Provider 03/08/22 05/16/22 documented as of this encounter
--- OUTSIDE RECORDS SUMMARY | 2023-03-09 17:12 | XMS_ITS | Encounter Summary ---
Author Name Unknown Organization [place] Address [facility] [place] [address] Care Team Providers Care Clinical Cytogeneticist Scientist Name Role Phone Anthony Mazariegos MD Primary Care Provider Emmanuel Nobles MD Unavailable [phone] Anthony Leyva MD Unavailable [phone] Anthony Mazariegos MD Unavailable Verona Mclain FORMING YARDAGE CONTROL OPERATOR NETWORK SUPPORT ANALYST Unavailable Anthony Leyva MD Unavailable [phone] Shaila Mota FORMING YARDAGE CONTROL OPERATOR NETWORK SUPPORT ANALYST Unavailable Evaristo Stack NETWORK SUPPORT ANALYST Unavailable Anthony Mazariegos MD Unavailable Shaila Mota APRN NETWORK SUPPORT ANALYST Unavailable Emil Cope MD Primary Care Provider Anthony Mazariegos MD Unavailable [phone] Reason for Visit * Reason Comments Medication Refill Encounter Details Date Type Department Care Team (Late st Contact Info) Description 03/08/2022 Refill [facility] [address] [facility] [address] [place] [phone] Anthony Mazariegos MD [address] [facility] [address] [place] [address] Medication Refill Social History Tobacco Use Types [...] suspected to have Coronavirus/COVID-19? No / Unsure 03/07/2022 12:03 PM BIT TAPPER documented as of this encounter Plan of Treatment Upcoming Encounters Date Type Department Care Team (Late st Contact Info) Description 05/11/2023 1:30 PM CDT Virtual Visit [facility] [address] [facility] [address] [place] [phone] Evaristo Stack, LANA [address] [facility] [address] [place] [address] Nallely Saravia MD [address] [place], [place] [id number] documented as of this encounter Visit Diagnoses Diagnosis Chronic heart failure with preserved ejection fraction (H) documented in this encounter Care Teams Clinical Cytogeneticist Scientist Relationship Specialty Start Date End Date Anthony Mazariegos MD [address] [facility] [address] [place] [address] PCP - General Cardiovascular Disease 01/14/22 3 Emil Cope MD [facility] [address] [place] [address] PCP - General Emergency Medicine 09/30/22 Emmanuel Nobles MD [address] [place] [address] Hematology 02/07/22 Anthony Leyva MD [address] [place] [address] Gastroenterology 02/07/22 Anthony Mazariegos MD [address] [facility] [address] [place] [address] Assigned Heart and Vascular Provider 03/08/22 05/16/22 Verona Mclain APRN NETWORK SUPPORT ANALYST [address] [place] [address] Assigned Cancer Care Provider 04/05/22 07/25/22 Anthony Leyva MD [address] [place] [address] Assigned Gastroenterology Provider 04/12/22 Shaila Mota APRN NETWORK SUPPORT ANALYST [address] [place] [address] [address] [place] [address] Assigned Heart and Vascular Provider 05/17/22 07/18/22 Evaristo Stack, NETWORK SUPPORT ANALYST [facility] [address] [place] [address] Assigned Cancer Care Provider 07/26/22 Anthony Mazariegos MD [address] [facility] [address] [place] [address] Assigned Heart and Vascular Provider 07/19/22 09/19/22 Shaila Mota APRN NETWORK SUPPORT ANALYST [address] [place] [address] [address] [place] [address] Assigned Heart and Vascular Provider 09/20/22 01/16/23 Anthony Mazariegos MD [address] [facility] [address] [place] [address] Assigned Heart and Vascular Provider 01/17/23 documented as of this encounter
--- OUTSIDE RECORDS SUMMARY | 2023-03-09 17:12 | XMS_ITS | Encounter Summary ---
Author Name Unknown Organization [place] Address [address] [place] [address] Care Team Providers Care Security Consultant Name Role Phone Anthony Mazariegos MD Primary Care Provider [phone] Emmanuel Nobles MD Unavailable [phone] Anthony Leyva MD Unavailable + [phone] Anthony Mazariegos MD Unavailable [phone] Verona Mclain METAL STAMPING MACHINE OPERATOR DIGITAL ADVERTISING SPECIALIST Unavailable [phone] Anthony Leyva MD Unavailable + [phone] Reason for Referral * Diagnostic Imaging Ultrasound (Routine) - Pending Review Specialty Diagnoses / Procedures Referred By Contac t Referred To Contact Diagnoses Cirrhosis of liver without ascites, unspecified hepatic cirrhosis type (H) Procedures US Abdomen Complete w Doppler Complete Anthony Leyva MD [address] [place] [address] Referral ID Status Reason Start Date Expiration Date V isits Requested Visits Authorized [id number] Pending Review 04/03/2022 04/03/2023 1 1 Reason for Visit * Diagnostic Imaging Ultrasound (Routine) - Pending Review Specialty Diagnoses / Procedures Referred By Contac t Referred To Contact Diagnoses Cirrhosis of liver without ascites, unspecified hepatic cirrhosis type (H) Procedures US Abdomen Complete w Doppler Complete Anthony Leyva MD [address] [place] [address] Referral ID Status Reason Start Date Expiration Date V isits Requested Visits Authorized [id number] Pending Review 04/03/2022 04/03/2023 1 1 Encounter Details Date Type Department Care Team (Latest Contact Info) Description 05/12/2022 9:36 AM CDT - 05/12/2022 11:59 PM CDT Hospital Encounter [facility] [address] [place] [phone] Anthony Leyva MD [address] [place] [address] Cirrhosis of liver without ascites, unspecified hepatic cirrhosis type (H) Discharge Disposition: Home or Self Care Social History Tobacco Use Types Packs/Day Years [...] AM CDT documented as of this encounter Medications at Time of Discharge Medication Sig Dispensed Refills Start Date End Date allopurinol (ZYLOPRIM) 100 MG tablet Take 200 mg by mouth daily 0 bumetanide (BUMEX) 2 MG tabletIndications:Chron ic heart failure with preserved ejection fraction (H) Take 1 tablet (2 mg) by mouth 2 times daily (Water pill for heart) 180 tablet 3 05/12/2022 ciclopirox (LOPROX) 0.77 % cream Apply topically 2 times daily 0 desoximetasone (TOPICORT) 0.25 % external cream APPLY TOPICALLY TWICE A DAY NEEDED 0 12/30/2021 empagliflozin (JARDIANCE) 10 MG TABS tabletIndications:Chron ic heart failure with preserved ejection fraction (H) Take 1 tablet (10 mg) by mouth daily (For heart muscle) 90 tablet 3 05/12/2022 Glucosamine-Chondroitin (COSAMIN DS PO) Take by mouth 2 times daily Cosamin DS 500/400 mg 0 tamsulosin (FLOMAX) 0.4 MG capsule Take 0.4 mg by mouth daily 0 apixaban ANTICOAGULANT (ELIQUIS) 5 MG tabletIndications:Perma nent atrial fibrillation (H) Take 1 tablet (5 mg) by mouth 2 times daily 180 tablet 1 05/12/2022 05/20/2022 metolazone (ZAROXOLYN) 2.5 MG tabletIndications:Chron ic heart failure with preserved ejection fraction (H) Take 1 tablet (2.5 mg) by mouth twice a week Thursday and Thursday 24 tablet 3 03/13/2022 07/17/2022 potassium chloride ER (KLOR-CON M) 10 MEQ CR tabletIndications:Hypok alemia Take 4 tablets (40 mEq) by mouth daily 120 tablet 1 04/21/2022 06/19/2022 potassium chloride ER (KLOR-CON M15) 15 MEQ CR tabletIndications:Hypok alemia Take 2 tablets (30 mEq) by mouth daily 90 tablet 3 03/10/2022 07/17/2022 documented as of this encounter Plan of Treatment Upcoming Encounters Date Type Department Care Team (Late st Contact Info) Description 05/11/2023 1:30 PM CDT Virtual Visit [place] [id number] [facility] [address] [place] [address] Evaristo Stack CNP [address] [place] [address] [address] [place], [place] [phone] Nallely Saravia MD [address] [place] [address] documented as of this encounter Procedures Procedure Name Priority Date/Time Associated Diagnosis Comments US ABDOMEN COMPLETE WITH DOPPLER COMPLETE Routine 05/12/2022 10:09 AM CDT Cirrhosis of liver without ascites, unspecified hepatic cirrhosis type (H) documented in this encounter Results * US Abdomen Complete w Doppler Complete (05/12/2022 10:09 AM CDT) Anatomical Region Laterality Modality Abdomen/Pelvis, Vascular Ultraso und 05/12/2022 10:0 9 AM CDT Impressions 05/12/2022 12:21 PM CDT IMPRESSION: 1. ??Coarsening of the hepatic parenchymal echotexture with equivocal mild hepatic contour irregularity. No focal liver lesion. 2. ??Mild splenic enlargement. 3. ??Left nephrectomy. 4. ??Thinning and increased echogenicity of the right renal cortical parenchyma compatible with nonspecific medical renal disease. 5. ??Normal abdominal liver duplex. Narrative 05/12/2022 12:21 PM CDT EXAM: US ABDOMEN COMPLETE WITH DOPPLER COMPLETE LOCATION: [facility] DATE/TIME: 05/12/2022 10:09 AM INDICATION: Screen for changes of portal hypertension; portal vein flows, splenic vein flows. COMPARISON: 12/14/2021 CT CAP. TECHNIQUE: Complete abdominal ultrasound. Color flow with spectral Doppler and waveform analysis performed. FINDINGS: GALLBLADDER: Mild uniform dural thickening of the otherwise normal-appearing gallbladder. No gallstones. Negative sonographic Blount's sign. BILE DUCTS: No biliary dilatation. The common duct measures 3 mm. LIVER: Coarsening of the hepatic parenchymal echotexture with equivocal mild hepatic contour irregularity. No focal liver mass. RIGHT KIDNEY: 13.3 cm in length. Renal cortical parenchymal thinning at 0.9 cm and increased echogenicity of the renal cortical parenchyma compatible with nonspecific medical renal disease. Several benign renal cysts require no follow-up. No hydronephrosis or solid mass. LEFT KIDNEY: Surgically absent. SPLEEN: Mild splenic enlargement at 14.5 cm. PANCREAS: The visualized portions are normal. AORTA: Normal in caliber. IVC: Normal where visualized. No ascites. ABDOMINAL DUPLEX: The hepatic artery, hepatic veins, IVC, portal veins, and splenic vein are patent with flow in the normal direction. Main portal vein diameter 1.5 cm. LIVER VELOCITIES (cm/s): SPLENIC VEIN: 14 MPV: 22 RPV: 13 LPV: 11 GALLBLADDER VELOCITIES (cm/s): LHV: 16 MHV: 31 RHV: 35 IVC: 24 Procedure Note Felix, Peter, MD - 05/12/2022 EXAM: US ABDOMEN COMPLETE WITH DOPPLER COMPLETE LOCATION: [facility] DATE/TIME: 05/12/2022 10:09 AM INDICATION: Screen for changes of portal hypertension; portal vein flows,splenic vein flows. COMPARISON: 12/14/2021 CT CAP. TECHNIQUE: Complete abdominal ultrasound. Color flow with spectral Dopplerand waveform analysis performed. FINDINGS: GALLBLADDER: Mild uniform dural thickening of the otherwisenormal-appearing gallbladder. No gallstones. Negative sonographic Blount'ssign. BILE DUCTS: No biliary dilatation. The common duct measures 3 mm. LIVER: Coarsening of the hepatic parenchymal echotexture with equivocalmild hepatic contour irregularity. No focal liver mass. RIGHT KIDNEY: 13.3 cm in length. Renal cortical parenchymal thinning at0.9 cm and increased echogenicity of the renal cortical parenchymacompatible with nonspecific medical renal disease. Several benign renalcysts require no follow-up. No hydronephrosis or solid mass. LEFT KIDNEY: Surgically absent. SPLEEN: Mild splenic enlargement at 14.5 cm. PANCREAS: The visualized portions are normal. AORTA: Normal in caliber. IVC: Normal where visualized. No ascites. ABDOMINAL DUPLEX: The hepatic artery, hepatic veins, IVC, portal veins,and splenic vein are patent with flow in the normal direction. Main portalvein diameter 1.5 cm. LIVER VELOCITIES (cm/s): SPLENIC VEIN: 14 MPV: 22 RPV: 13 LPV: 11 GALLBLADDER VELOCITIES (cm/s): LHV: 16 MHV: 31 RHV: 35 IVC: 24 IMPRESSION: 1. Coarsening of the hepatic parenchymal echotexture with equivocal mildhepatic contour irregularity. No focal liver lesion. 2. Mild splenic enlargement. 3. Left nephrectomy. 4. Thinning and increased echogenicity of the right renal corticalparenchyma compatible with nonspecific medical renal disease. 5. Normal abdominal liver duplex. Anthony Leyva MD IMG US ORDER XAVIER documented in this encounter Visit Diagnoses Diagnosis Cirrhosis of liver without ascites, unspecified hepatic cirrhosis type (H) documented in this encounter Care Teams Security Consultant Relationship Specialty Start Date End Date Anthony Mazariegos MD [address] [facility] [address] [place] [address] PCP - General Cardiovascular Disease 01/14/22 3 [place] [address] [place] [address] [place] [address] Hematology 02/07/22 Anthony Leyva MD [address] [place] [address] Gastroenterology 02/07/22 Anthony Mazariegos MD [address] [facility] [address] [address] [place] [address] Assigned Heart and Vascular Provider 03/08/22 05/16/22 Verona Mclain APRN [facility] [address] [place] [address] Assigned Cancer Care Provider 04/05/22 07/25/22 Anthony Leyva MD [address] [place] [address] Assigned Gastroenterology Provider 04/12/22 documented as of this encounter
--- OUTSIDE RECORDS SUMMARY | 2023-03-09 17:12 | XMS_ITS | Encounter Summary ---
Author Name Unknown Organization [place] Address [facility] [place] [address] Care Team Providers Care Core Shaper Sides Name Role Phone Anthony Mazariegos MD Primary Care Provider Emmanuel Nobles MD Unavailable [phone] Anthony Leyva MD Unavailable [phone] Anthony Mazariegos MD Unavailable [phone] Reason for Visit * Reason Onset Date Comments Medication Question 03/11/2022 Call Back 03/12/2022 metOLazone 2.5 m g Encounter Details Date Type Department Care Team (Late st Contact Info) Description 03/11/2022 Telephone [place] [id number] [facility] [address] [place] [phone] Anthony Mazariegos MD 1600 [facility] 200 [place] [address] Medication Question; Call Back (metOLazone 2.5 mg ) Social History Tobacco Use Types Packs/Day Years [...] Coronavirus/COVID-19? No / Unsure 03/07/2022 12:03 PM CASING BUILDER documented as of this encounter Miscellaneous Notes * Telephone Encounter - Yajaira Mclaughlin RN - 03/12/2022 2:03 PM CASING BUILDER ----- Message ----- From: Anthony Mazariegos MD Sent: 03/11/2022 8:00 PM CASING BUILDER To: Yajaira Mclaughlin RN I wanted him to continue what he was doing prior to my visit which I recall was metolazone 2.5 mg twice weekly. Could you confirm? Thank you == Confirmed with patient. He was taking metolazone 2.5 mg twice weekly (, Sat). Will update prescription at pharmacy. -ejb NG BUILDER * Telephone Encounter - Benita Rudd - 03/12/2022 1:59 PM CST [facility] Phone Message May a detailed message be left on voicemail: yes Reason for Call: Other: [facility] is requesting a call back to clarify orders for metOLazone 2.5 mg . Action Taken: Other: cardio Travel Screening: Not Applicable .Thank you! [facility] NG BUILDER * Telephone Encounter - Yajaira Mclaughlin RN - 03/11/2022 11:26 AM CASING BUILDER Images from the original note were not included. Dr. Mazariegos, can you clarify how you want patient to take metolazone. Instructions are contradictory. See below. -ejb Medication Changes metOLazone 2.5 mg Oral TWICE WEEKLY, Take on Sundays NG BUILDER * Telephone Encounter - Gen Leblanc - 03/11/2022 11:17 AM C[facility] Call [facility] Phone Message May a detailed message be left on voicemail: yes Reason for Call: Medication Question or concern regarding medication Prescription Clarification Name of Medication: metolazone (ZAROXOLYN) 2.5 MG tablet Prescribing Provider: Anthony Mazariegos Pharmacy: [place], [place] - [address] [place] [address] What on the order needs clarification? There are two sets of directions - please confirm which direction patient needs to take when taking this medication Action Taken: Message routed to: Other: Cardiology [facility] Travel Screening: Not Applicable NG BUILDER documented in this encounter Plan of Treatment Upcoming Encounters Date Type Department Care Team (Late st Contact Info) Description 05/11/2023 1:30 PM CDT Virtual Visit [facility] [address] [facility] [address] [place] [phone] Evaristo Stack, PILOT SAFETY INSPECTOR 1875 [facility] 130 [place], [place] [phone] Nallely Saravia MD [address] [place] [address] documented as of this encounter Visit Diagnoses Diagnosis Chronic heart failure with preserved ejection fraction (H) documented in this encounter Care Teams Core Shaper Sides Relationship Specialty Start Date End Date Anthony Mazariegos MD [address] [facility] 200 [place] [address] PCP - General Cardiovascular Disease 01/14/22 3 Emmanuel Nobles MD [address]25 [facility] [place] [place] [address] Hematology 02/07/22 Anthony Leyva MD [address]09 [place] [address] Gastroenterology 02/07/22 Anthony Mazariegos MD [address] [facility] 200 [place] [address] Assigned Heart and Vascular Provider 03/08/22 05/16/22 documented as of this encounter
--- OUTSIDE RECORDS SUMMARY | 2023-03-09 17:12 | XMS_ITS | Encounter Summary ---
Author Name Unknown Organization [place] Address [address] [facility] [place] [address] Care Team Providers Care Car Worker Name Role Phone Anthony Mazariegos MD Primary Care Provider [phone] Emmanuel Nobles MD Unavailable [phone] Anthony Leyva MD Unavailable + [phone] Anthony Mazariegos MD Unavailable [phone] Encounter Details Date Type Department Care Team (Latest Contact Info) Description 04/02/2022 Travel Social History Tobacco Use Types Packs/Day [...] suspected to have Coronavirus/COVID-19? No / Unsure 04/02/2022 9:40 AM JAVA SOLUTIONS ARCHITECT documented as of this encounter Plan of Treatment Upcoming Encounters Date Type Department Care Team (Late st Contact Info) Description 05/11/2023 1:30 PM CDT Virtual Visit [place] [id number] [facility] [address] [place] [address] vEaristo Stack, LANA [address] [place] [address] [address] [place] [address] Nallely Saravia MD [address] [place] [address] documented as of this encounter Visit Diagnoses Not on filedocumented in this encounter Care Teams Car Worker Relationship Specialty Start Date End Date Anthony Mazariegos MD [address] [facility] 200 [place] [address] PCP - General Cardiovascular Disease 01/14/22 3 [place] [address] [place] [address] [place] [address] Hematology 02/07/22 Anthony Leyva MD [address] [place] [address] Gastroenterology 02/07/22 Anthony Mazariegos MD [address] [facility] 200 [place] [address] Assigned Heart and Vascular Provider 03/08/22 05/16/22 documented as of this encounter
--- OUTSIDE RECORDS SUMMARY | 2023-03-09 17:12 | XMS_ITS | Encounter Summary ---
Author Name Unknown Organization [facility] Address [address] [place] [address] Care Team Providers Care Edging Machine Catcher Name Role Phone Anthony Mazariegos MD Primary Care Provider + [phone] Emmanuel Nobles MD Unavailable [phone] Anthony Leyva MD Unavailable + [phone] Anthony Mazariegos MD Unavailable [phone] Reason for Referral * Diagnostic Imaging Ultrasound (Routine) - Pending Review Specialty Diagnoses / Procedures Referred By Contac t Referred To Contact Diagnoses Cirrhosis of liver without ascites, unspecified hepatic cirrhosis type (H) Procedures US Abdomen Complete w Doppler Complete Anthony Leyva MD [address] [place] [address] Referral ID Status Reason Start Date Expiration Date V isits Requested Visits Authorized [id number] Pending Review 04/03/2022 04/03/2023 1 1 SCREEN WORKER Reason for Visit * Reason Comments Video Visit * Consultation (Routine) - Closed Specialty Diagnoses / Procedures Referred By Contac t Referred To Contact Gastroenterology Diagnoses Cirrhosis of liver without ascites, unspecified hepatic cirrhosis type (H) Emmanuel Nobles MD [address] [facility] [place] [address] Referral ID Status Reason Start Date Expiration Date Visits Re quested Visits Authorized [id number] Closed 02/05/2022 02/05/2023 1 1 Encounter Details Date Type Department Care Team (Late st Contact Info) Description 04/03/2022 9:30 AM HEAD SCREEN WORKER Virtual Visit [facility] [address] [phone] Emmanuel Nobles MD [address] [place] [address] Anthoyn Leyva MD [address] [place] [id number] Abnormal liver diagnostic imaging (Primary Dx); Cirrhosis of liver without ascites, unspecified hepatic cirrhosis type (H) Social History Tobacco Use Types Packs/Day [...] In the last 10 days, have sinai tyson been in contact with someone who was confirmed or suspected to have Coronavirus/COVID-19? No / Unsure 04/02/2022 9:40 AM HEAD SCREEN WORKER documented as of this encounter Progress Notes * Anthony Leyva MD - 04/03/2022 9:30 AM CST Tutu is a 81 year old who is being evaluated via a billable video visit. How would you like to obtain your AVS? MyChart If the video visit is dropped, the invitation should be resent by: Send to e- mail at: [email or web address] Will anyone else be joining your video visit? Yes: Daughter Ngozi and Cally will be on. How would they like to receive their invitation? Send to e-mail at: [email or web address] Video-Visit Details Type of service: Video Visit Video Start Time: 929 Video End Time:954 Originating Location (pt. Location): Home Distant Location (provider location): On-site Platform used for Video Visit: Eva Date of Service: 04/03/2022 Referring Provider: Emmanuel Nobles MD Subjective: Tutu Ngo is a 81 year old male presenting for evaluation of abnormal liver imaging History of Present Illness Tutu Ngo is a 81 year old male with past medical history of heart failure with preserved ejection fraction, chronic kidney disease stage III, atrial fibrillation on aspirin and Eliquis, fairly recent diagnosis of myelodysplastic syndrome with iron deficiency anemia who presents in consultation for imaging notable for nodular appearing liver. Denies ever participating in significant alcohol use throughout his adult life. Notes that he has struggled with obesity for the majority of his adult life. Noticed that approximately 10 years ago heweighed around 305 pounds, ultimately and steadily losing weight down to 230 pounds currently. Notes that he is wanting to lose more weight but he is really struggling. He was admitted to [facility] on December 12, 2021 with symptomatic severe iron deficiency anemia with shortness of breath. [place] that he was dealing with volume overload secondary to his heartfailure, he was given blood and IV iron. He underwent an EGD and colonoscopy at that time. Colonoscopy did demonstrate some polyps but no overt sources of chronic blood loss. EGD demonstrated a Schatzki ring, but no evidence of varices nor portal hypertensive gastropathy. He did undergo a capsule endoscopy which raise concerns for ectasia within the small bowel of unclear significance. A CT of the abdomen was performed during this hospitalization which commented on nodular contours of the liver. There was also the presence of small volume ascites, and a normal- sized spleen. No overt family history of liver disease to the best of patient's knowledge. With regard to his heart disease his most recent echocardiogram was performed in November 2021 whichdemonstrated preserved LV function, but moderate tricuspid regurgitation with an RVSP of 36 mmHg and decreased RV function. Past Medical History: Past Medical History: Diagnosis Date ??? [...] ??? VIANNEY on CPAP ??? Renal disease Surgical History: Past Surgical History: Procedure Laterality Date ??? ARTHROPLASTY KNEE 03/29/2013 Procedure: ARTHROPLASTY KNEE; ARTHROPLASTY KNEE LEFT; Surgeon: Eric Pepper MD; Location: [facility] OR ??? CAPSULE/PILL CAM ENDOSCOPY N/A 01/14/2022 Procedure: IMAGING PROCEDURE, GI TRACT, INTRALUMINAL, VIA CAPSULE; Surgeon: Jeb Burr MD;Location: [facility] GI ??? COLONOSCOPY N/A 12/13/2021 Procedure: COLONOSCOPY WITH POLYPECTOMY AND CLIP PLACEMENT; Surgeon: Jose Alberto Diallo MD; Location: [facility] Main OR ??? ESOPHAGOSCOPY, GASTROSCOPY, DUODENOSCOPY (EGD), COMBINED N/A 12/13/2021 Procedure: ESOPHAGOGASTRODUODENOSCOPY (EGD) WITH BIOPSIES; Surgeon: Jose Alberto Diallo MD; [facility] Main [facility] ??? HERNIA REPAIR ??? left nephrectomy[ ??? RELEASE CARPAL TUNNEL BILATERAL ??? right total knee arthroplasty[ Social History: Social History Tobacco Use ??? Smoking status: Never ??? Smokeless tobacco: Never Vaping Use ??? Vaping Use: Never used Substance Use Topics ??? Alcohol use: Yes Comment: very rare ??? Drug use: No Family History: Family History Problem Relation Age of Onset ??? Cancer Mother Lymphoma ??? Other - See Comments Father ALS ??? Thrombophilia Other Brother and sister ??? Liver Disease No family hx of Medications: Current Outpatient Medications Medication ??? allopurinol (ZYLOPRIM) 100 MG tablet ??? apixaban ANTICOAGULANT (ELIQUIS) 2.5 MG tablet ??? bumetanide (BUMEX) 2 MG tablet ??? ciclopirox (LOPROX) 0.77 % cream ??? desoximetasone (TOPICORT) 0.25 % external cream ??? empagliflozin (JARDIANCE) 10 MG TABS tablet ??? Glucosamine-Chondroitin (COSAMIN DS PO) ??? metolazone (ZAROXOLYN) 2.5 MG tablet ??? potassium chloride ER (KLOR-CON M15) 15 MEQ CR tablet ??? tamsulosin (FLOMAX) 0.4 MG capsule No current facility-administered medications for this visit. Review of Systems A complete 10 point review of systems was asked and answered in the negative unless specifically commented upon in the HPI Objective: There were no vitals filed for this visit. There is no height or weight on file to calculate BMI. Physical Exam Vitals reviewed. Constitutional: Well-developed, well-nourished, in no apparent distress. HEENT: Normocephalic. No scleral icterus. Neck/Lymph: Normal ROM Respiratory: Normal respiratory excursion Skin:no jaundice. Peripheral Vascular: Musculoskeletal: ROM intact, normal muscle bulk Psychiatric: Normal mood and affect. Behavior is normal. Labs and Diagnostic tests: Lab Results Component Value Date BILITOTAL 0.7 01/31/2022 ALT 22 01/31/2022 AST 24 01/31/2022 ALKPHOS 103 01/31/2022 Lab Results Component Value Date ALBUMIN 3.6 01/31/2022 PROTTOTAL 7.6 01/31/2022 Imaging: CT Chest/A/P w/o contrast 12/14/2021 FINDINGS: LUNGS AND PLEURA: Moderate size right-sided pleural effusion with adjacent atelectasis. Indeterminate soft tissue nodule along the right hemidiaphragm measuring 1.9 x 0.9 cm, in retrospect previouslymeasuring 1.4 x 0.7 cm in 2010, likely benign given slow growth. ?? MEDIASTINUM/AXILLAE: No thoracic aortic aneurysm. No lymphadenopathy. ?? CORONARY ARTERY CALCIFICATION: Previous intervention (stents or CABG). ?? HEPATOBILIARY: Nodular liver contour suspicious for cirrhosis. ?? PANCREAS: Normal. ?? SPLEEN: Normal. ?? ADRENAL GLANDS: Normal right adrenal gland. The left adrenal gland is not visualized. ?? KIDNEYS/BLADDER: Status post left nephrectomy. Unremarkable right kidney. The bladder is decompressed. ?? BOWEL: Unremarkable ?? LYMPH NODES: Normal. ?? VASCULATURE: Unremarkable. ?? PELVIC ORGANS: Prostatomegaly ?? MUSCULOSKELETAL: Diffuse body wall edema. Small volume ascites. No evidence of retroperitoneal hemorrhage. Procedures: EGD: 12/13/2021 Findings: ?A widely patent and non-obstructing Schatzki ring was found in the lower ?third of the esophagus. ?The exam of the esophagus was otherwise normal. ?The entire examined stomach was normal. Biopsies were taken with a cold ?forceps for histology and Helicobacter pylori testing. ?A few erosions without??bleeding were found in the duodenal bulb. Assessment and Plan: Abnormal Liver Imaging: -He does have a significant history of obesity, and review of the chart demonstrates occasionally has had mildly elevated serum ALT. He does not have a significant history of alcohol use, nor risk factors for development of chronic liver disease - Has right sided cardiac dysfunction which will increase risk of congestive hepatopathy -Nodular contour of the liver on cross-sectional imaging is a very nonspecific finding, and is often seen as a result of any type of acute or chronic liver injury -With regard to labs noted that: Serum albumin, serum total protein, bilirubin, platelets are all normal and all have been within normal limits. This strongly suggests against the presence of cirrhosis with decreased hepatic capacity -On cross-sectional imaging demonstrating nodular appearing liver was noted the patient had a normal-sized spleen, which certainly suggests against the presence of portal hypertension -I personally reviewed the EGD pictures, and pictures of the gastric body and antrum did not demonstrate changes of portal hypertensive gastropathy; this would be a sensitive an early sign for the presence of portal hypertension - Based on all of the available data, I do not believe that the patient has cirrhosis -For completion of evaluation we will order an abdominal ultrasound with Doppler flow to evaluate for the presence or absence of changes of cirrhosis with portal hypertension -If this returns negative, the patient will no longer need follow-up with hepatology -We did have a long discussion as well, as I am not sure that making a formal diagnosis of cirrhosis (i.e. Liver biopsy) will change his prognosis and care. We discussed that further weight loss willcertainly take stress off his body and that this will often help a liver remain compensated if cirrhosis is present. Follow Up: TBD Thank you very much for the opportunity to participate in the care of this patient. If you have anyfurther questions, please don't hesitate to contact our office. Anthony Leyva M.D. Sewage Disposal Engineerconductor road freight [facility] Approximately 35 minutes of non [id number] time were spent in review of the patient's medical record on 04/02/22. This included review of previous: clinic visits, hospital records, lab results, imaging studies, and procedural documentation. The findings from this review are summarized in the above note. SCREEN WORKER documented in this encounter Plan of Treatment Upcoming Encounters Date Type Department Care Team (Late st Contact Info) Description 05/11/2023 1:30 PM CDT Virtual Visit [facility] [address] [place] [address] Evaristo Stack CNP [address] [place], [place] [id number] Nallely Saravia MD [address] [place], [place] [id number] documented as of this encounter Results * US Abdomen Complete [...] US ABDOMEN COMPLETE WITH DOPPLER COMPLETE LOCATION: [facility] DATE/TIME: 05/12/2022 10:09 AM INDICATION: Screen [...] 31 RHV: 35 IVC: 24 Procedure Note Fuentes Washington MD - 05/12/2022 EXAM: US ABDOMEN COMPLETE WITH DOPPLER COMPLETE LOCATION: [facility] DATE/TIME: 05/12/2022 10:09 AM INDICATION: Screen [...] documented in this encounter Visit Diagnoses Diagnosis Abnormal liver diagnostic imaging- Primary Nonspecific (abnormal) findings on radiological and other examination of biliary tract Cirrhosis of liver without ascites, unspecified hepatic cirrhosis type (H) Cirrhosis of liver without ascites, unspecified hepatic cirrhosis type (H) documented in this encounter Care Teams Edging Machine Catcher Relationship Specialty Start Date End Date Anthony Mazariegos MD [address] [facility] [address] [place] [address] PCP - General Cardiovascular Disease 01/14/22 3 Emmanuel Nobles MD [address] [place] [address] [place] [address] Hematology 02/07/22 Anthony Leyva MD [address] [place] [address] Gastroenterology 02/07/22 Anthony Mazariegos MD [address] [facility] [address] [place] [address] Assigned Heart and Vascular Provider 03/08/22 05/16/22 documented as of this encounter
--- OUTSIDE RECORDS SUMMARY | 2023-03-09 17:12 | XMS_ITS | Encounter Summary ---
Author Name Unknown Organization [place] Address [facility] [facility] [place] [address] Care Team Providers Care Port Surveyor Name Role Phone Anthony Mazariegos MD Primary Care Provider Emmanuel Nobles MD Unavailable [phone] Anthony Leyva MD Unavailable [phone] Shaila Mota CDL SERVICE TECHNICIAN ELECTRONICS ENGINEERING MANAGER Unavailable Anthony Mazariegos MD Unavailable [phone] Verona Mclain CDL SERVICE TECHNICIAN ELECTRONICS ENGINEERING MANAGER Unavailable Encounter Details Date Type Department Care Team (Late st Contact Info) Description 02/12/2022 Telephone [facility] Heart [facility] [address] [facility] [address] [place] [phone] Stephanie Burnham Social History Tobacco Use Types [...] Coronavirus/COVID-19? No / Unsure 04/04/2022 9:58 AM SALES SERVICE EXECUTIVE documented as of this encounter Miscellaneous Notes * Telephone Encounter - Shaila Moat APRN CNP - 02/12/2022 10:41 AM CST Thank you for update. Med list updated. S SERVICE EXECUTIVE * Telephone Encounter - Stephanie Burnham RN - 02/12/2022 10:39 AM CST He wants to try taking it once a week. Will be taking it on Thursday. Explained he has to monitor symptoms and wts very closely and to call us if it worsens. He stated understanding and agreement. Stephanie Doherty RN BSN S SERVICE EXECUTIVE * Telephone Encounter - Shaila Mota APRN CNP - 02/12/2022 8:57 AM CST He could have developed a rash from the metolazone. We could try to decrease metolazone to once weekly but he has to monitor symptoms and weight closely. If he is wanting to try this to see if this improves his rash he needs to call us if any new or worsening symptoms. Thank you S SERVICE EXECUTIVE * Telephone Encounter - Stephanie Burnham RN - 02/12/2022 8:50 AM CST I'm doing fine. My wt is down a couple lbs (states 228.6lbs the last two days, in clinic was 235lbs). Asked if Pt has noticed any worsening symptoms like swelling or SOB.. not really. One problem I really have is this rash all over my body. Pt does not know if rash started when metolazone was started. Mentions Rocio Pinedo asked beforeif Pt had developed rash and so is wondering if it is due to the medication. Recommended he contacta habitat management coordinator to further assess but stated would mention to the provider as well. HARMEET Doherty RN BSN S SERVICE EXECUTIVE * Telephone Encounter - Stephanie Burnham RN - 02/12/2022 8:49 AM CST ----- Message from Shaila Mota APRN CNP sent at 02/12/2022 7:26 AM SALES SERVICE EXECUTIVE ----- Regarding: FW: metolazone Please call patient to see if he has had any increase symptoms of fluid retention since decreasing metolazone to twice a week. Thank you ----- Message ----- From: Shaila Mota APRN CNP Sent: 02/12/2022 12:00 AM SALES SERVICE EXECUTIVE To: Shaila Mota APRN CNP Subject: metolazone Decrease metolazone to twice a week on Tuesdays and Saturdays. Any increased shortness of breath, edema or weight gain? S SERVICE EXECUTIVE documented in this encounter Plan of Treatment Upcoming Encounters Date Type Department Care Team (Late st Contact Info) Description 05/11/2023 1:30 PM CDT Virtual Visit [address] [place] [phone] Evaristo Stack CNP [address] [place] [address] [address] [place], [place] [id number] Nallely Saravia MD [address] [place], [place] [phone] documented as of this encounter Visit Diagnoses Diagnosis Chronic heart failure with preserved ejection fraction (H) documented in this encounter Care Teams Port Surveyor Relationship Specialty Start Date End Date Anthony Mazariegos MD [address] [facility] [address] [place] [address] PCP - General Cardiovascular Disease 01/14/22 3 Emmanuel Nobles MD [address] [facility] [place] [address] Hematology 02/07/22 Anthony Leyva MD [address] [place] [address] Gastroenterology 02/07/22 Shaila Mota APRN ELECTRONICS ENGINEERING MANAGER [address] [facility] [place] [address] Assigned Heart and Vascular Provider 02/08/22 03/07/22 Anthony Mazariegos MD [address] [facility] [address] [place] [address] Assigned Heart and Vascular Provider 03/08/22 05/16/22 Verona Mclain APRN ELECTRONICS ENGINEERING MANAGER [address] [place], [place] [phone] Assigned Cancer Care Provider 04/05/22 07/25/22 documented as of this encounter
--- OUTSIDE RECORDS SUMMARY | 2023-03-09 17:12 | XMS_ITS | Encounter Summary ---
Author Name Unknown Organization [place] Address [facility] [place] [address] Care Team Providers Care Computer Peripheral Equipment Operator Name Role Phone Anthony Mazariegos MD Primary Care Provider Emmanuel Nobles MD Unavailable [phone] Anthony Leyva MD Unavailable [phone] Anthony Mazariegos MD Unavailable Verona Mclain APRN BUCKET CHUCKER Unavailable Anthony Leyva MD Unavailable + [phone] Reason for Referral * Consultation (Routine: Next available opening) - Pending Review Specialty Diagnoses / Procedures Referred By Contac t Referred To Contact Cardiovascular Disease Diagnoses Chronic heart failure with preserved ejection fraction (H) Shaila Mota APRN BUCKET CHUCKER [address] [facility] [place] [address] Referral ID Status Reason Start Date Expiration Date V isits Requested Visits Authorized [id number] Pending Review 05/12/2022 05/12/2023 1 1 Question Answer Follow-up with: Self Scheduling Instructions: [facility] will call you to coordinate your care as prescribed by your provider. If you have concerns about scheduling, please call [phone]. Comments [facility] will call you to coordinate your care as prescribed by your provider. If you have concerns about scheduling, please call [phone]. Reason for Visit * Reason Comments Follow Up * Consultation (Routine: Next available opening) - Closed Specialty Diagnoses / Procedures Referred By Madeleine watters Referred To Contact Cardiovascular Disease Diagnoses Chronic heart failure with preserved ejection fraction (H) Shaila Mota APRN BUCKET CHUCKER [address] [facility] [place] [address] Referral ID Status Reason Start Date Expiration Date Visits Re quested Visits Authorized [id number] Closed 02/03/2022 02/03/2023 1 1 Encounter Details Date Type Department Care Team (Late st Contact Info) Description 05/12/2022 12:50 PM CDT Office Visit [facility] [address] [facility] [address] [place] [phone] Shaila Mota, TOYA BUCKET CHUCKER [address] [facility] [place], [place] [phone] Chronic heart failure with preserved ejection fraction (H) (Primary Dx); Essential hypertension; Permanent atrial fibrillation (H); Stage 3 chronic kidney disease, unspecified whether stage 3a or 3b CKD (H); VIANNEY (obstructive sleep apnea); Acute on chronic diastolic heart failure (H) Social History Tobacco Use Types Packs/Day [...] AM CDT documented as of this encounter Last Filed Vital Signs Vital Sign Reading Time Taken Comments Blood Pressure 122/60 05/12/2022 1:30 PM CDT Pulse 80 05/12/2022 12:41 PM CDT Temperature - - Respiratory Rate 16 05/12/2022 12:41 PM CDT Oxygen Saturation 95% 05/12/2022 12:41 PM CDT Inhaled Oxygen Concentration - - Weight 109.5 kg (241 lb 8 oz) 05/12/2022 12:41 P M CDT Height 182.9 cm (6') 05/12/2022 12:41 PM CDT Body Mass Index 32.75 05/12/2022 12:41 PM CDT documented in this encounter Patient Instructions * Patient Instructions* Shaila Mota APRN CNP - 05/12/2022 12:50 PM CDT Tutu Ngo, It was a pleasure to see you today at [facility]. My recommendations after this visit include: - Please follow up with Dr Mazariegos July 17 - Please follow up with Shaila Mota in August - Increase eliquis to 5 mg twice a day - Stop Jardiance and see if your rash improves, if it doesn't restart Jardiance Shaila Mota CNP documented in this encounter Progress Notes * Shaila Mota APRN CNP - 05/12/2022 12:50 PM CDT Images from the original note were not included. Assessment/Recommendations Assessment: 1. Heart failure with preserved ejection fraction, NYHA class II: Compensated. He has mild dyspnea on exertion and fatigue. He states he has had weight gain but could be due to increased caloric intake. He denies orthopnea or PND. 2. Hypertension: Controlled. Blood pressure 122/60 3. CKD stage III: He had labs today with sodium 139, potassium 3.6, BUN 41 and creatinine 2.20 4. VIANNEY: He continues to wear his CPAP 5. Permanent atrial fibrillation: Rate controlled. He continues Eliquis 2.5 mg twice a day for anticoagulation. Unfortunately he does not meet the criteria for dose adjustment with being 81 years of age and greater than 60 kg in weight. He meets 1 out of the 3 criteria for creatinine clearance withhis creatinine greater than 1.50. Restart Eliquis at 5 mg twice a day 6. Rash: He states he has had a rash since starting Jardiance in November. I recommended holding Jardiance for a week and we will follow-up with him next week to see if this has improved. If it does not I recommend he see a poultry hatchery supervisor Plan: 1. Increase Eliquis to 5 mg twice a day 2. Hold Jardiance to see if rash improves. We will call him next week to see if it has 3. Stressed importance of low-sodium and watching caloric intake 4. Continue monitoring daily weights Tutu Ngo will follow up with Dr. Mazariegos July 17 and in the heart failure clinic in August. History of Present Illness/Subjective Mr. Tutu Ngo is a 81 year old male seen at [facility] heart failure clinic today for continued follow-up. His and daughter accompany him today. He follows up for heart failure with preserved ejection fraction. He had an echocardiogram which showed ejection fraction of 50 to 55%. He has a past medical history significant for hypertension, permanent atrial fibrillation, VIANNEY on CPAP,CKD stage III, and anemia. Today, he has mild fatigue and dyspnea on exertion. He denies lightheadedness, orthopnea, PND, palpitations, chest pain, abdominal fullness/bloating and lower extremity edema. He is monitoring home weights which have increased to 240 pounds. He is trying to follow a low-sodium diet Physical Examination Review of Systems BP 122/60 Pulse 80 Resp 16 Ht 1.829 m (6') Wt 109.5 kg (241 lb 8 oz) SpO2 95% BMI 32.75kg/m?? Body mass index is 32.75 kg/m??. Wt Readings from Last 3 Encounters: 05/12/22 109.5 kg (241 lb 8 oz) 04/04/22 107.5 kg (237 lb) 03/07/22 105.7 kg (233 lb) General Appearance: no acute distress ENT/Mouth: Wearing mask EYES: no scleral icterus, normal conjunctivae Neck: no thyromegaly Chest/Lungs: lungs are clear to auscultation, no rales or wheezing, equal chest wall expansion Cardiovascular: Irregularly irregular. Normal first and second heart sounds with no murmurs, rubs, or gallops, no edema bilaterally Abdomen: bowel sounds are present Extremities: no cyanosis or clubbing Skin: no xanthelasma, warm. Neurologic: normal hand woven carpet and rug mender bilateral, no tremors Psychiatric: alert and oriented x3 [...] Alberto Diallo MD; Location: [facility] Main OR ??? ESOPHAGOSCOPY, GASTROSCOPY, DUODENOSCOPY (EGD), COMBINED N/A 12/13/2021 Procedure: ESOPHAGOGASTRODUODENOSCOPY (EGD) WITH BIOPSIES; Surgeon: Jose Alberto Diallo MD; Location: [facility] Main OR ??? HERNIA REPAIR ??? left [...] Other Topics Concern ??? Parent/sibling w/ CABG, NC or angioplasty before 65F 55M? Not Asked [...] (ZAROXOLYN) 2.5 MG tablet Take 1 tablet (2.5 mg) by mouth twice a week Thursday and Thursday 24 tablet 3 ??? potassium chloride ER (KLOR-CON M) 10 MEQ CR tablet Take 4 tablets (40 mEq) by mouth daily 120 tablet 1 ??? potassium chloride ER (KLOR-CON M15) 15 MEQ CR tablet Take 2 tablets (30 mEq) by mouth daily 90tablet 3 ??? tamsulosin (FLOMAX) 0.4 MG capsule Take 0.4 mg by mouth daily Allergies Allergen Reactions ??? Furosemide Rash ??? Folic Acid Diarrhea Claims to folic acid intolerant, causes diarrhea. ??? Norvasc [Amlodipine Besylate] Swelling of right leg Lab Results Chemistry/lipid CBC Cardiac Enzymes/BNP/TSH/INR Lab Results Component Value Date BUN 41 (H) 05/12/2022 NA 139 05/12/2022 CO2 28 05/12/2022 Lab Results Component Value Date WBC 8.7 03/07/2022 HGB 12.4 (L) 03/07/2022 HCT 38.6 (L) 03/07/2022 MCV 91 03/07/2022 PLT 193 03/07/2022 Lab Results Component Value Date TSH 1.56 12/16/2021 INR 1.67 (H) 12/12/2021 This note has been dictated using voice recognition software. Any grammatical, typographical, or context distortions are unintentional and inherent to the software 40 minutes spent on the date of encounter doing chart review, review of outside records, review of test results, interpretation with above tests, patient visit, documentation and discussion with family. documented in this encounter Plan of Treatment Upcoming Encounters Date Type Department Care Team (Late st Contact Info) Description 05/11/2023 1:30 PM CDT Virtual Visit [facility] [address] [place] [address] Evaristo Stack CNP [address] [place] [address] [address] [place], [place] [phone] Nallely Saravia MD [address] [place], [place] [phone] Scheduled Referrals Name Type Priority Associated Diagnoses Orde r Schedule Follow-Up with Cardiology Referral Routine: Next available opening Chronic heart failure with preserved ejection fraction (H) Expected: 09/11/2022 (Approximate), Expires: 05/13/2023 documented as of this encounter Visit Diagnoses Diagnosis Chronic heart failure with preserved ejection fraction (H)- Primary Essential hypertension Unspecified essential hypertension Permanent atrial fibrillation (H) Atrial fibrillation Stage 3 chronic kidney disease, unspecified whether stage 3a or 3b CKD (H) VIANNEY (obstructive sleep apnea) Obstructive sleep apnea (adult) (pediatric) Acute on chronic diastolic heart failure (H) Acute on chronic diastolic heart failure documented in this encounter Care Teams Computer Peripheral Equipment Operator Relationship Specialty Start Date End Date Anthony Mazariegos MD [address] [facility] [address] [place] [address] PCP - General Cardiovascular Disease 01/14/22 3 [place] [address] [place] [address] [place] [address] Hematology 02/07/22 Anthony Leyva MD [address] [place] [address] Gastroenterology 02/07/22 Anthony Mazariegos MD [address] [facility] [address] [place] [address] Assigned Heart and Vascular Provider 03/08/22 05/16/22 Verona Mclain APRN BUCKET CHUCKER [address] [place] [address] Assigned Cancer Care Provider 04/05/22 07/25/22 Anthony Leyva MD [address] [place] [address] Assigned Gastroenterology Provider 04/12/22 documented as of this encounter
--- OUTSIDE RECORDS SUMMARY | 2023-03-09 17:12 | XMS_ITS | Encounter Summary ---
Author Name Unknown Organization [place] Address [facility]0 [facility] [place] [address] Care Team Providers Care Import Export Clerk Name Role Phone Anthony Mazariegos MD Primary Care Provider [phone] Emmanuel Nobles MD Unavailable [phone] Anthony Leyva MD Unavailable + [phone] Anthony Mazariegos MD Unavailable [phone] Encounter Details Date Type Department Care Team (Late st Contact Info) Description 03/10/2022 Orders Only [facility] [place] [address] [facility] [address] [place] [phone] Estela Adam Chronic heart failure with preserved ejection fraction [...] Coronavirus/COVID-19? No / Unsure 03/07/2022 12:03 PM TELEPHONIC NURSE CASE MANAGER documented as of this encounter Plan of Treatment Upcoming Encounters Date Type Department Care Team (Late st Contact Info) Description 05/11/2023 1:30 PM CDT Virtual Visit [facility] [address] [facility] [address] [place] [phone] Evaristo Stack, SEPTIC TANK SERVICE TECHNICIAN [address] [facility] [address] [place], [place] [phone] Nallely Saravia MD [address] [place] [address] Scheduled Orders Name Type Priority Associated Diagnoses Orde r Schedule Basic metabolic panel Lab Routine Chronic heart failure with preserved ejection fraction (H) Expected: 03/10/2022 (Approximate), Expires: 03/10/2023 documented as of this encounter Visit Diagnoses Diagnosis Chronic heart failure with preserved ejection fraction (H)- Primary Hypokalemia Hypopotassemia documented in this encounter Care Teams Import Export Clerk Relationship Specialty Start Date End Date Anthony Mazariegos MD [address] [facility] 200 [place] [address] PCP - General Cardiovascular Disease 01/14/22 3 Emmanuel Nobles MD [address] [facility] [place] [address] Hematology 02/07/22 Anthony Leyva MD 9 [place] [address] Gastroenterology 02/07/22 Anthony Mazariegos MD [address] [facility] 200 [place] [address] Assigned Heart and Vascular Provider 03/08/22 05/16/22 documented as of this encounter
--- OUTSIDE RECORDS SUMMARY | 2023-03-09 17:12 | XMS_ITS | Encounter Summary ---
Author Name Unknown Organization [place] Address [facility] [place] [address] Care Team Providers Care Field Insurance Sales Manager Name Role Phone Anthony Mazariegos MD Primary Care Provider [phone] Emmanuel Nobles MD Unavailable [phone] Anthony Leyva MD Unavailable + [phone] Anthony Mazariegos MD Unavailable [phone] Encounter Details Date Type Department Care Team (Late st Contact Info) Description 03/10/2022 Orders Only [facility] [place] [address] [facility] [address] [place] [address] Estela Adam Social History Tobacco Use Types Packs/Day Years [...] Coronavirus/COVID-19? No / Unsure 03/07/2022 12:03 PM MANAGER LEASING documented as of this encounter Plan of Treatment Upcoming Encounters Date Type Department Care Team (Late st Contact Info) Description 05/11/2023 1:30 PM CDT Virtual Visit [facility] [address] [place] [phone] Evaristo Stack, PRODUCT ADVISOR [address] [facility] [address] [place], [place] [phone] Nallely Saravia MD [address] [place] [address] documented as of this encounter Visit Diagnoses Not on filedocumented in this encounter Care Teams Field Insurance Sales Manager Relationship Specialty Start Date End Date Anthony Mazariegos MD [address] [facility] 200 [place] [address] PCP - General Cardiovascular Disease 01/14/22 3 Emmanuel Nobles MD [address] [place] [address] Hematology 02/07/22 Anthony Leyva MD [address] [place] [address] Gastroenterology 02/07/22 Anthony Mazariegos MD [address] [facility] 200 [place] [address] Assigned Heart and Vascular Provider 03/08/22 05/16/22 documented as of this encounter
--- OUTSIDE RECORDS SUMMARY | 2023-03-09 17:12 | XMS_ITS | Encounter Summary ---
Author Name Unknown Organization [place] Address [address] [place] [address]. [place] [address] Care Team Providers Care Hair Weaver Name Role Phone Anthony Mazariegos MD Primary Care Provider + [phone] Emmanuel Nobles MD Unavailable [phone] Anthony Leyva MD Unavailable + [phone] Anthony Mazariegos MD Unavailable [phone] Verona Mclain AGRICULTURE TEACHER OPERATIONS LEAD Unavailable [phone] Anthony Leyva MD Unavailable + [phone] Encounter Details Date Type Department Care Team (Latest Contact Info) Description 05/12/2022 Travel Social History Tobacco Use Types Packs/Day [...] Description 05/11/2023 1:30 PM CDT Virtual Visit [address] [place] [phone] Evaristo Stack CNP [address] [facility] 130 [place], [place] [phone] Nallely Saravia MD [address] [place], [place] [phone] documented as of this encounter Visit Diagnoses Not on filedocumented in this encounter Care Teams Hair Weaver Relationship Specialty Start Date End Date Anthony Mazariegos MD [address] [facility] 200 [place], [place] [phone] PCP - General Cardiovascular Disease 01/14/22 3 Emmanuel Nobles MD [facility] [place] [address] Hematology 02/07/22 Anthony Leyva MD [address] [place] [address] Gastroenterology 02/07/22 Anthony Mazariegos MD [address] [facility] 200 [place] [address] Assigned Heart and Vascular Provider 03/08/22 05/16/22 Verona Mclain APRN OPERATIONS LEAD [address] [place] [address] Assigned Cancer Care Provider 04/05/22 07/25/22 Anthony Leyva MD [address] [place] [address] Assigned Gastroenterology Provider 04/12/22 documented as of this encounter
--- OUTSIDE RECORDS SUMMARY | 2023-03-09 17:13 | XMS_ITS | Encounter Summary ---
Author Name Unknown Organization [place] Address [address] [facility] [place] [address] Care Team Providers Care Metal Plater Name Role Phone System, Provider Not In Primary Care Provider Un available Anthony Mazariegos MD Primary Care Provider Rocio Sellers NP Unavailable Emmanuel Nobles MD Unavailable Anthony Leyva MD Unavailable Shaila Mota COMPOSITION ROLL MAKER AND CUTTER FREIGHT RATE SPECIALIST Unavailable Anthony Mazariegos MD Unavailable [phone] Verona Mclain COMPOSITION ROLL MAKER AND CUTTER FREIGHT RATE SPECIALIST Unavailable Anthony Leyva MD Unavailable Reason for Visit * Reason Onset Date Comments Pt. Information/instruction 01/08/2022 Vide o capsule endoscopy Encounter Details Date Type Department Care Team ([facility] st Contact Info) Description 01/08/2022 Telephone [facility] Endoscopy [address] [place] [address] Nadine Rodriguez, JAMILA Pt. Information/instruction (Video capsule endoscopy) Social History Tobacco Use Types Packs/Day Years [...] encounter Miscellaneous Notes * Telephone Encounter - Alie Salazar RN - 01/13/2022 9:41 AM CST Patient calling with questions regarding video capsule appointment. States would like instructions sent via email. Pt requests video capsule communication via unencrypted e-mail. Pt acknowledges that they have agreed to accept the risks and receive unencrypted communications for this incidence. Reviewed CLD and how to take the bowel prep. After discussion of the prep, patient states he is to limit sodium due to cardiac diagnosis. System Archive Analyst then discussed will send golytely prep to pharmacy. Patient verbalized understanding and in agreement with plan. EN PRINTING INSPECTOR * Telephone Encounter - Alie Salazar RN - 01/08/2022 2:41 PM CST Pre assessment questions completed for upcoming video capsule procedure scheduled on 01.14.22 COVID policy reviewed. Patient to complete rapid antigen test one to two days before their scheduled procedure. Patient to bring photo of the results when they come in for their procedure. Reviewed procedural arrival time 1200 and facility location [facility]. No line driver/president/gm production & live experiences needed as this procedure is scheduled without sedation Diabetic? No Reviewed video capsule prep instructions with patient. Patient verbalized understanding and had no questions or concerns at this time. Alie Salazar RN EN PRINTING INSPECTOR * Telephone Encounter - Nadine Rodriguez RN - 01/08/2022 10:38 AM CST Attempted to contact patient regarding upcoming video capsule endoscopy procedure on 01.14.2022 forpre assessment questions. No answer. Left message to return call to [phone] #4 Discuss at home rapid antigen COVID test 1-2 days prior to procedure. Arrival time: 1200 Facility location: [facility] Sedation type: none Indication for procedure: iron deficiency anemia; neg egd/colonoscopy Anticoagulants: Eliquis Bowel prep recommendation: Miralax//Dulcolax Prep instructions sent via Letter at time of scheduling. Nadine Rodriguez, RN EN PRINTING INSPECTOR documented in this encounter Plan of Treatment Upcoming Encounters Date Type Department Care Team (Late st Contact Info) Description 05/11/2023 1:30 PM CDT Virtual Visit [facility] [address] [facility] [address] [place] [phone] Evaristo Stack, FREIGHT RATE SPECIALIST [address] [facility] [address] [place], [place] [phone] Nallely Saravia MD [address] [place], [place] [phone] documented as of this encounter Visit Diagnoses Diagnosis Anemia, iron deficiency- Primary Iron deficiency anemia, unspecified documented in this encounter Care Teams Metal Plater Relationship Specialty Start Date End Date System, Provider Not In PCP - General Clinic 12/19/21 01/13/22 Anthony Mazariegos MD [address] [facility] [address] [place] [address] PCP - General Cardiovascular Disease 01/14/22 3 Rocio Sellers NP [address] [facility] [place] [address] Assigned Heart and Vascular Provider 01/11/22 02/07/22 Emmanuel Nobles MD [address] [facility] [place] [address] Hematology 02/07/22 Anthony Leyva MD [address] [place] [address] Gastroenterology 02/07/22 Shaila Mota APRN FREIGHT RATE SPECIALIST [address] [facility] [place] [address] Assigned Heart and Vascular Provider 02/08/22 03/07/22 Anthony Mazariegos MD [address] [place] [address] [address] [place] [address] Assigned Heart and Vascular Provider 03/08/22 05/16/22 Verona Mclain APRN FREIGHT RATE SPECIALIST [address] [place] [address] Assigned Cancer Care Provider 04/05/22 07/25/22 Anthony Leyva MD [address] [place] [address] Assigned Gastroenterology Provider 04/12/22 documented as of this encounter
--- OUTSIDE RECORDS SUMMARY | 2023-03-09 17:13 | XMS_ITS | Encounter Summary ---
Author Name Unknown Organization [place] Address [facility] [place] [address] Care Team Providers Care Planograph Operator Name Role Phone Mateus Bergman MD Primary Care Provider Unava ilable System, Provider Not In Primary Care Provider Un available Anthony Mazariegos MD Primary Care Provider [phone] Rocio Sellers NP Unavailable [phone] Emmanuel Nobles MD Unavailable [phone] Anthony Leyva MD Unavailable Shaila Mota APRN ENGLISH COMPOSITION INSTRUCTOR Unavailable Anthony Mazariegos MD Unavailable [phone] Verona Mclain [employer] REP ENGLISH COMPOSITION INSTRUCTOR Unavailable [place] Leyva MD Unavailable [phone] Shaila Mota [employer]IV[employer]NER[employer] REP ENGLISH COMPOSITION INSTRUCTOR Unavailable Evaristo Stack ENGLISH COMPOSITION INSTRUCTOR Unavailable [phone] Anthony Mazariegos MD Unavailable [phone] Shaila Mota APRN ENGLISH COMPOSITION INSTRUCTOR Unavailable Emil Cope MD Primary Care Provider Anthony Mazariegos MD Unavailable [phone] Reason for Visit * Reason Comments Call Center Generated Orders Encounter Details Date Type Department Care Team (Late st Contact Info) Description 07/20/2015 Orders Only [facility] [address] [address] Arcadio Robles, DO [address] [place] [phone] Social History Tobacco Use Types Packs/Day Years [...] Description 05/11/2023 1:30 PM CDT Virtual Visit [address] [place] [phone] Evaristo Stack, LANA [address] [place] [address] [address] [place] [address] Nallely Saravia MD [address] [place], [place] [phone] documented as of this encounter Visit Diagnoses Not on filedocumented in this encounter Care Teams Planograph Operator Relationship Specialty Start Date End Date Mateus Bergman MD PCP - General 10/24/10 12/18/21 System, Provider Not In PCP - General Clinic 12/19/21 01/13/22 [place] Mazariegos MD [address] [facility] 200 [place] [address] PCP - General Cardiovascular Disease 01/14/[address] [facility] [address] [place] [address] PCP - General Emergency Medicine 09/30/22 Rocio Sellers NP 1600 [facility], [address] [place] [address] Assigned Heart and Vascular Provider 01/11/22 02/07/22 [place] [address] [place] [address] [place] [address] Hematology 02/07/22 [place] Leyva MD [address] [place] [address] Gastroenterology 02/07/22 Shaila Mota APRN ENGLISH COMPOSITION INSTRUCTOR 1600 [facility] 200 [place] [address] Assigned Heart and Vascular Provider 02/08/22 03/07/22 [place] Mazariegos MD 1600 [facility] [address] [place] [id number] Assigned Heart and Vascular Provider 03/08/22 05/16/22 Verona Mclain APRN ENGLISH COMPOSITION INSTRUCTOR [address] [place], [place] [id number] Assigned Cancer Care Provider 04/05/22 07/25/22 [place] Leyva MD [address] [place] [address] Assigned Gastroenterology Provider 04/12/22 Shaila Mota APRN ENGLISH COMPOSITION INSTRUCTOR 1600 [facility], [address] [place] [address] Assigned Heart and Vascular Provider 05/17/22 07/18/22 Evaristo Stack, LANA [facility] [address]ez [address] [place] [address] Assigned Cancer Care Provider 07/26/22 [place] Mazariegos MD [address] [place] [address] [address] [place] [address] Assigned Heart and Vascular Provider 07/19/22 09/19/22 Shaila Mota APRN ENGLISH COMPOSITION INSTRUCTOR 1600 [facility], [address] [place] [address] Assigned Heart and Vascular Provider 09/20/22 01/16/23 [place] Mazariegos MD [address] [facility] 200 [place] [address] Assigned Heart and Vascular Provider 01/17/23 documented as of this encounter
--- OUTSIDE RECORDS SUMMARY | 2023-03-09 17:13 | XMS_ITS | Clinical Summary ---
Author Name Unknown Organization [facility] Address [place], [place] [address] Care Team Providers Care Print Finishing Worker Name Role Phone Emil Cope MD Primary Care Provider [phone] Fuentes Romero MD Unavailable Nurses, Advanced Heart Failure Unavailable + Allergies Active Allergy Reactions Criticality Noted Date Comments Folic Acid Containing Drugs Diarrhea 08/25/19 13 Claims to folic acid intolerant, causes diarrhea. Furosemide Rash Medium 01/13/2019 Amlodipine Edema 08/18/2006 Medications Medication Sig Dispensed Refills Start Date End Date Status glucosamine-chondroi tin, 500-400 mg, (COSAMIN DS 500/400) 500-400 mg Cap Take 1 capsule by mouth. Twice daily 0 04/27/2009 Active omega-3 fatty acids-vitamin E (FISH OIL) 1,000 mg cap Take 2 capsules by mouth. 0 08/23/2013 Active chlorthalidone (HYGROTON) 25 mg tabletIndications:Un specified essential hypertension Take 1 tablet by mouth once daily. 90 tablet 3 08/22/2014 Active desoximetasone 0.25% topical (TOPICORT) 0.25 % cream Apply topically to affected area(s) 2 times daily. 1 Tube 6 08/22/2014 Active tamsulosin (FLOMAX) 0.4 mg capsuleIndications:U nspecified essential hypertension,Hypertr ophy of prostate with urinary obstruction and other lower urinary tract symptoms (LUTS) Take 1 capsule by mouth once daily after a meal. 90 capsule 3 08/22/2014 Active ELIQUIS 2.5 mg tablet Take 1 tablet by mouth 2 times daily. 3 12/17/2018 Active ciclopirox 0.77% cream (LOPROX) 0.77 % cream Apply topically as needed. 2 11/03/2018 Active allopurinol (ZYLOPRIM) 100 mg tablet Take 2 tablets by mouth once daily. 2 03/16/2019 Active medication order composer Benefiber 0 03/05/2020 Active bumetanide (BUMEX) 1 mg tabletIndications:Ch ronic heart failure with preserved ejection fraction (HFpEF) (HC) Take 1 tablet by mouth 2 times daily. 180 tablet. 3 03/06/2020 Active carvediloL (COREG) 12.5 mg tabletIndications:Ch ronic heart failure with preserved ejection fraction (HFpEF) (HC) Take 1.5 tablets by mouth 2 times daily with meals. 270 tablet. 3 03/06/2020 Active digoxin (LANOXIN) 125 mcg (0.125 mg) tabletIndications:Ch ronic heart failure with preserved ejection fraction (HFpEF) (HC) Take 1 tablet by mouth once daily. 90 tablet 3 03/06/2020 Active quinapriL (ACCUPRIL) 20 mg tabletIndications:Es sential hypertension Take 1 tablet by mouth once daily. 90 tablet. 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 Post-op serum creatinine 02/17/11 1.98 mg/dl. Tinea cruris 12/17/2010 CKD (chronic kidney disease) stage 3, GFR 30-59 ml/min 09/17/2010 GERD (gastroesophageal reflux disease) 1 Colon polyp 06/11/2010 Overview: Colonoscopy 04/2010 polyps repeat in 3 years Obesity, unspecified 05/21/2010 Diastolic dysfunction 10/08/2009 ASHD - (+) CTA with non-obst ructive CAD. Small RPDA area in question. 08/05/2009 Hyperlipidemia 08/05/2009 Hypertrophy of prostate with urinary obstruction and other lower urinary tract symptoms (LUTS) 01/11/2007 Unspecified essential hypertension 11/30/2006 Resolved Problems Problem Noted Date Diagnosed Date Resolved Date Renal cell carcinoma 02/17/2011 013 Left kidney mass 01/06/2011 06/10/2011 Overview: Seen on chest CT and abdominal MRI done 01/04. Patient referred to Urology for evaluation for possible biopsy and/or resection. SOB (shortness of breath) 09/17/2010 Immunizations Name Administration Dates Next Due Td (Age >=7 Years) 07/21/1996 Family History Medical History Relation Name Comments Other Father jagdish christianson Cancer Mother lymphoma Relation Name Status Comments Father Mother Social History Tobacco Use Types Packs/Day Years Used Date Smoking Tobacco: Never Smokeless Tobacco: Never Tobacco Cessation:Counseling Given: Yes Alcohol Use Standard Drinks/Week Comments Yes 0 (1 standard drink = 0.6 oz pur e alcohol) rare Social Connections Answer Date Recorded Frequency of Communication with Friends and Fami ly Not on file 02/27/2021 Financial Resource Strain Answer Date R ecorded Difficulty of Paying Living Expenses Not on file 02/27/2021 Difficulty of Paying Living Expenses Not on file 02/27/2021 Sex and Gender Information Value Date Recorded Sex Assigned at Not on file Gender Identity Not on file Sexual Orientation Not on file Obstetrics History Last Filed Vital Signs Vital Sign Reading Time Taken Comments Blood Pressure 136/70 11/29/2021 1:10 PM CDT Pulse 58 11/29/2021 1:10 PM CDT Temperature 36.1 ??C (97 ??F) 12/01/2014 11:20 AM CDT Respiratory Rate 18 11/29/2021 1:10 PM CDT Oxygen Saturation 96% 03/16/2019 3:04 PM WILTON WEAVER Inhaled Oxygen Concentration - - Weight 118.8 kg (262 lb) 11/29/2021 1:10 PM CDT Height 182.9 cm (6' 0.01) 03/16/2019 3:04 PM CS T Body Mass Index 35.53 03/16/2019 3:04 PM WILTON WEAVER Plan of Treatment Health Maintenance Due Date Last Done Comments Tdap 1951 Zoster (shingles) series for age 50+ (1 of 2) 1992 Medicare Wellness for age 65+ 08/26/2007 Pneumococcal series for age 65+ (1 of 1 - PCV) 08/26/2007 Depression screening for age 12+ 07/01/2016 07/02/19 16 BMI (ht and wt on same day) for age 18+ 03/16/2020 03/16/2019, 01/13/2019 Tetanus booster 12/17/2020 12/17/2010 (Decl ined), 05/21/2010 (Declined), 07/21/1996 COVID-19 vaccine series ( season) 2022 07/23/2021, 01/17/2021, 05/01/2020, Additional history exists Influenza for age 65+ 10/31/2022 02/15/2013 Advance Directives Latest Code Status on File Code Status Date Activated Date Inactivated Comments Full Code 11/28/2007 8:43 PM 11/29/2007 5:18 PM Care Teams Print Finishing Worker Relationship Specialty Start Date End Date Emil Cope MD [address] [place] [address] PCP - General Internal Medicine 09/07/18 Fuentes Romero MD [address] [place] [address] [address] [place] [address] Cardiology - CHF Cardiovascular Disease 01/13/19 Nurses, Advanced Heart Failure [address] [address] Advanced Heart Failure/Transplant Card 01/13/19
== END 2023-03-09 11:01 | disposition home or self-care (01) ==
LOC: NFLDREF 17:07
PROVIDERS: PCP Internal Medicine; Referring Provider Internal Medicine; Visit Provider Internal Medicine
DX: I12.9 Hypertensive chronic kidney disease with stage 1 through stage 4 chronic kidney disease, or unspecified chronic kidney disease (principal); N18.4 Chronic kidney disease, stage 4 (severe); I50.30 Unspecified diastolic (congestive) heart failure; I48.91 Unspecified atrial fibrillation
CPT/HCPCS: 80053; 80061; 83880

== ENCOUNTER 2023-03-18 08:46 | Day surgery (SDC) | payer MEDICARE, BC, SELFPAY ==
--- OUTSIDE RECORDS SUMMARY | 2023-03-18 08:52 | XMS_ITS | Clinical Summary ---
Author Name Unknown Organization [facility] Address [address] [place] [address] Care Team Providers Care Supervisor Fish Bait Processing Name Role Phone Emmanuel Nobles MD Unavailable [phone] Anthony Leyva MD Unavailable [phone] Anthony Leyva MD Unavailable [phone] Evaristo Stack CNP Unavailable Emil Cope MD Primary Care Provider Anthony Mazariegos MD Unavailable [phone] Allergies Active Allergy Reactions Criticality Noted Date [...] Type Department Care Team Description 02/17/[address] [place] [address] [place] Mazariegos MD Medication Refill 02/04/2023 Telephone [facility] [address] [place] [phone] Leona Hargrove RN Direct Oral Anticoagulant 01/15/[address] [place] [address] [place] Mazariegos MD Medication Refill 01/14/2023 Orders Only [facility] [address] [place] [address] Estela Adam Acute on chronic diastolic heart failure (H) (Primary Dx) 01/13/2023 2:20 PM DB2 SYSTEMS PROGRAMMER Office Visit [address] [place] [address] Shaila Mota, CIGAR TOBACCO REHANDLER CREDIT DEPARTMENT MANAGER [place] Mazariegos MD Acute on chronic diastolic [...] Comments Blood Pressure 132/60 01/13/2023 2:03 PM DB2 SYSTEMS PROGRAMMER Pulse 83 01/13/2023 2:03 PM DB2 SYSTEMS PROGRAMMER Temperature 36.8 ??C (98.3 ??F) 07/17/2022 2:06 PM CD T Respiratory Rate 16 01/13/2023 2:03 PM DB2 SYSTEMS PROGRAMMER Oxygen Saturation 96% 01/13/2023 2:03 PM DB2 SYSTEMS PROGRAMMER Inhaled Oxygen Concentration - - Weight 110.5 kg (243 lb 8 oz) 01/13/2023 2:03 PM DB2 SYSTEMS PROGRAMMER Height 182.9 cm (6') 01/13/2023 2:03 PM DB2 SYSTEMS PROGRAMMER Body Mass Index 33.02 01/13/2023 2:03 PM DB2 SYSTEMS PROGRAMMER Plan of Treatment Upcoming Encounters Date Type Department Care Team (Late st Contact Info) Description 05/11/2023 1:30 PM CDT Virtual Visit [facility] [address] [facility] [address] [place] [address] Evaristo Stack, LANA 18[address] [facility] [address] [place], [place] [phone] Nallely Saravia MD [address] [place] [address] Health Maintenance Due Date Last [...] (Cologuard) Discontinued Medical Devices Implanted Type Area Foundry Engineer Device Identifier Shelf Expiration Date Model / Serial / Lot Imp Insert Tibial Howm Tri 6x09mm [id number] Implanted:Qty: 1 on 03/29/2013 by Eric Pepper MD at [facility] Left: [email or web address] [email or web address] 01/29/2018 [id number] / / [id number] Procedures Procedure Name Priority Date/Time Associated Diagnosis Comments N TERMINAL PRO BNP OUTPATIENT Routine 01/13/2023 2:51 PM DB2 SYSTEMS PROGRAMMER Acute on chronic diastolic heart failure (H) Stage 3 chronic kidney disease, unspecified whether stage 3a or 3b CKD (H) Essential hypertension Iron malabsorption Permanent atrial fibrillation (H) VIANNEY (obstructive sleep apnea) Heart failure with preserved ejection fraction, unspecified HF chronicity (H) Chronic heart failure with preserved ejection fraction (H) BASIC METABOLIC PANEL Routine 01/13/2023 2:51 PM DB2 SYSTEMS PROGRAMMER Acute on chronic diastolic heart failure (H) [...] terminal pro BNP outpatient (01/13/2023 2:51 PM DB2 SYSTEMS PROGRAMMER) [facility] N Terminal Pro BNP Outpatient 2,066(H) 0 - 1,800 pg/mL 01/13/2023 4:53 PM DB2 SYSTEMS PROGRAMMER [facility] Comment: Reference range shown and [...] Unknown Venipuncture / Unknown 01/13/2023 2:51 PM DB2 SYSTEMS PROGRAMMER 01/13/2023 4:22 PM DB2 SYSTEMS PROGRAMMER [place] Mazariegos MD LAB - BLOOD ORDERABL ES [facility] [address] [facility] [place] [address], [facility] [[email or web address]] [phone] * (ABNORMAL) Basic metabolic panel (01/13/2023 2:51 PM DB2 SYSTEMS PROGRAMMER) Sodium 139 135 - 145 mmol/L 01/13/2023 4:53 PM [facility] Comment:Reference intervals for this test were updated on 11/25/2022 to more accurately reflect our healthy population. There may be differences in the flagging of prior results with similar values performed with this method. Interpretation of those prior results can be made in the context of the updated reference intervals. Potassium 3.7 3.4 - 5.3 mmol/L 01/13/2023 4:53 PM [facility] Chloride 94(L) 98 - 107 mmol/L 01/13/2023 4:53 PM [facility] Carbon Dioxide (CO2) 32(H) 22 - 29 mmol/L 01/13/2023 4:53 PM [facility] Anion Gap 13 7 - 15 mmol/L 01/13/2023 4:53 PM [facility] Urea Nitrogen 39.2(H) 8.0 - 23.0 mg/dL 01/13/2023 4:53 PM [facility] Creatinine 2.25(H) 0.67 - 1.17 mg/dL 01/13/2023 4:53 PM [facility] GFR Estimate 29(L) >60 mL/min/1. 73m2 01/13/2023 4:53 PM [facility] Calcium 11.2(H) 8.8 - 10.2 mg/dL 01/13/2023 4:53 PM DB2 SYSTEMS PROGRAMMER [facility] Glucose 94 70 - 99 mg/dL 01/13/2023 4:53 PM DB2 SYSTEMS PROGRAMMER [facility] Blood STRUCTURE OF LEFT UPPER LIMB / Unknown Venipuncture / Unknown 01/13/2023 2:51 PM DB2 SYSTEMS PROGRAMMER 01/13/2023 4:22 PM DB2 SYSTEMS PROGRAMMER [place] Mazariegos MD LAB - BLOOD ORDERABL ES [facility] [address] [facility] [place] [address], [facility] [[email or web address]] [phone] from Last 3 Months Advance Directives For more information, please contact: [phone] Latest Code Status on File Code Status Date Activated Date Inactivated Comments Full Code 12/12/2021 1:28 PM 12/20/2021 3:31 PM All basic and advanced life-sustaining interventions are performed as appropriate Question Answer Comments Code status determined by: Discussion with patient/ legal decision maker Code Status History Code Status Date Activated Date Inactivated Comments Full Code 03/29/2013 6:39 PM 03/31/2013 5:03 PM Care Teams Supervisor Fish Bait Processing Relationship Specialty Start Date End Date Emil Cope MD [facility] [address] [place] [address] PCP - General Emergency Medicine 09/30/22 Emmanuel Nobles MD [address] [place] [address] Hematology 02/07/22 [place] Leyva MD [address] [place] [address] Gastroenterology 02/07/22 [place] Leyva MD [address] [place] [address] Assigned Gastroenterology Provider 04/12/22 Evaristo Stack CNP [address] [facility] [address] [place] [address] Assigned Cancer Care Provider 07/26/22 [place] Mazariegos MD 1600 [facility] 200 [place] [address] Assigned Heart and Vascular Provider 01/17/23
--- OUTSIDE RECORDS SUMMARY | 2023-03-18 08:52 | XMS_ITS | Encounter Summary ---
Author Name Unknown Organization [place] Address [address] [facility] [place] [address] Care Team Providers Care Materials Scheduler Name Role Phone Emmanuel Nobles MD Unavailable [phone] [place] Leyva MD Unavailable [phone] [place] Leyva MD Unavailable Evaristo Stack CNP Unavailable [phone] Emil Cope MD Primary Care Provider [place] Mazariegos MD Unavailable [phone] Reason for Visit * Reason Onset Date Comments Direct Oral Anticoagulant 02/04/2023 Encounter Details Date Type Department Care Team (Late st Contact Info) Description 02/04/2023 Telephone [facility] [address] [place] [phone] Leona Hargrove RN Direct Oral Anticoagulant [...] Vijaya Akins RN - 02/19/2023 2:18 PM INTELLIGENCE SUPPORT OFFICER ANTICOAGULATION STEWARDSHIP Spoke with [facility] to review [...] has been contacted by the pharmacy to supervisor picking crew the Rx of 5 mg Eliquis tablets. Called patient's pharmacy and advised of the dose change. The 5 mg dose of Eliquis has been cancelled. Vijaya Akins RN [facility] LLIGENCE SUPPORT OFFICER * Telephone Encounter - Yamileth Cruz RPH - 02/11/2023 9:48 AM CST Images from the original note were not included. [place] Mazariegos MD You2 days ago TJ Yes, please reduce the dose. Thank you, [place] LLIGENCE SUPPORT OFFICER * Telephone Encounter - Leona Hargrove RN - 02/04/2023 12:33 PM CST ANTICOAGULATION DIRECT ORAL ANTICOAGULANT MONITORING SUBJECTIVE The [facility] is evaluating [facility] [...] with package insert dosing) Plan made with [facility] Pharmacist Yamileth Hargrove, RN Anticoagulation Clinic LLIGENCE SUPPORT OFFICER documented in this encounter Plan of Treatment Upcoming Encounters Date Type Department Care Team (Late st Contact Info) Description 05/11/2023 1:30 PM CDT Virtual Visit [facility] [address] [facility] [address] [place] [phone] Evaristo Stack, LANA 1875 [facility] 130 [place], [place] [phone] Nallely Saravia MD [address] [place], [place] [phone] documented as of this encounter Visit Diagnoses Diagnosis Permanent atrial fibrillation (H)- Primary Atrial fibrillation documented in this encounter Care Teams Materials Scheduler Relationship Specialty Start Date End Date Emil Cope MD [facility] [address] [place] [address] PCP - General Emergency Medicine 09/30/22 Emmanuel Nobles MD [address] [place] [address] [place], [place] [phone] Hematology 02/07/22 [place] Leyva MD [address] [place] [address] Gastroenterology 02/07/22 [place] Leyva MD [address] [place] [address] Assigned Gastroenterology Provider 04/12/22 Evaristo Stack CNP [address] [facility] 130 [place], [place] [phone] Assigned Cancer Care Provider 07/26/22 [place] Mazariegos MD 1600 [facility] 200 [place], [place] [id number] Assigned Heart and Vascular Provider 01/17/23 documented as of this encounter
--- OUTSIDE RECORDS SUMMARY | 2023-03-18 08:52 | XMS_ITS | Clinical Summary ---
Author Name Unknown Organization [facility] Address [place], [place] [address] Care Team Providers Care Manager Of Pharmacy Name Role Phone Emil Cope MD Primary [...] CDT Oxygen Saturation 96% 03/16/2019 3:04 PM NIB ADJUSTER Inhaled Oxygen Concentration - - Weight 118.8 kg (262 lb) 11/29/2021 1:10 PM CDT Height 182.9 cm (6' 0.01) 03/16/2019 3:04 PM CS T Body Mass Index 35.53 03/16/2019 3:04 PM NIB ADJUSTER Plan of Treatment Health Maintenance Due Date [...] 8:43 PM 11/29/2007 5:18 PM Care Teams Manager Of Pharmacy Relationship Specialty Start Date End Date Emil Cope MD [address] [place] [address] PCP - General Internal Medicine 09/07/18 Fuentes Romero MD [address] [place] [address] [address] [place] [address] Cardiology - CHF Cardiovascular Disease 01/13/19 Nurses, Advanced Heart Failure [address], [place] [address] Advanced Heart Failure/Transplant Card 01/13/19
--- OUTSIDE RECORDS SUMMARY | 2023-03-18 08:52 | XMS_ITS | Encounter Summary ---
Author Name Unknown Organization [place] Address [address] [place] [address] Care Team Providers Care Aircraft Manager Name Role Phone HenryciraEmmanuel MD Unavailable [phone] [place] Leyva MD Unavailable [phone] [place] Leyva MD Unavailable [phone] Evaristo Stack EXPERIENCE PLANNING STRATEGIST Unavailable Shaila Mota APRN EXPERIENCE PLANNING STRATEGIST Unavailable Emil Cope MD Primary Care Provider Reason for Visit * Reason Comments Medication Refill Encounter Details Date Type Department Care Team (Late st Contact Info) Description 01/15/2023 Refill [place] [address] [facility] [address] [place] [address] [place] Mazariegos MD [address] [facility] 200 [place], [place] [phone] Medication Refill Social History Tobacco Use Types [...] CDT Virtual Visit [facility] [address] [place] [phone] Evaristo Stack CNP [address] [place] [phone] Nallely Saravia MD [address] [place], [place] [phone] documented as of this encounter Visit Diagnoses Diagnosis Hypokalemia Hypopotassemia documented in this encounter Care Teams Aircraft Manager Relationship Specialty Start Date End Date Emil Cope MD [facility] [address] [place] [address] PCP - General Emergency Medicine 09/30/22 Emmanuel Nobles MD [facility] [place] [address] Hematology 02/07/22 [place] Leyva MD [address] [place] [address] Gastroenterology 02/07/22 [place] Leyva MD [address] [place] [address] Assigned Gastroenterology Provider 04/12/22 Evaristo Stack CNP [facility] [place] [address] Assigned Cancer Care Provider 07/26/22 Shaila Mota, TOYA EXPERIENCE PLANNING STRATEGIST [address] [facility], [address] [place] [address] Assigned Heart and Vascular Provider 09/20/22 01/16/23 documented as of this encounter
--- OUTSIDE RECORDS SUMMARY | 2023-03-18 08:52 | XMS_ITS | Referral Summary ---
Author Name Unknown Organization [place] Address [address] [facility] [place] [address] Care Team Providers Care Care Aide Name Role Phone Emmanuel Nobles MD Unavailable [phone] Anthony Leyva MD Unavailable [phone] Anthony Leyva MD Unavailable [phone] Evaristo Stack CNP Unavailable [phone] Emil Cope MD Primary Care Provider Anthony Mazariegos MD Unavailable [phone] Encounters Date Type Department Care Team Description 02/17/2023 Refill M [address] [place] [address] Anthony Mazariegos MD Medication Refill 02/04/2023 Telephone [facility] [address] [place] [phone] Leona Hargrove, RN Direct Oral Anticoagulant 01/15/2023 Refill M [address] [place] [address] Anthony Mazariegos MD Medication Refill 01/14/[address] [facility] [address] [facility] [address] [place] [address] Estela Adam Acute on chronic diastolic heart failure (H) (Primary Dx) 01/13/2023 Travel 01/13/2023 2:20 PM PERSONAL SERVICE WORKERS Office Visit [facility] [address] [facility] [address] [place] [phone] Shaila Mota APRN CNP Johnson, Thomas H, [...] Comments Blood Pressure 132/60 01/13/2023 2:03 PM PERSONAL SERVICE WORKERS Pulse 83 01/13/2023 2:03 PM PERSONAL SERVICE WORKERS Temperature 36.8 ??C (98.3 ??F) 07/17/2022 2:06 PM CD T Respiratory Rate 16 01/13/2023 2:03 PM PERSONAL SERVICE WORKERS Oxygen Saturation 96% 01/13/2023 2:03 PM PERSONAL SERVICE WORKERS Inhaled Oxygen Concentration - - Weight 110.5 kg (243 lb 8 oz) 01/13/2023 2:03 PM PERSONAL SERVICE WORKERS Height 182.9 cm (6') 01/13/2023 2:03 PM PERSONAL SERVICE WORKERS Body Mass Index 33.02 01/13/2023 2:03 PM PERSONAL SERVICE WORKERS Plan of Treatment Upcoming Encounters Date Type Department Care Team (Late st Contact Info) Description 05/11/2023 1:30 PM CDT Virtual Visit [facility] [address] [facility] [address] [place] [address] Evaristo Stack, LANA [address] [facility] [address] [place] [address] Nallely Saravia MD [address] [place], [place] [phone] Medical Devices Implanted Type Area Change Management Specialist Device Identifier Shelf Expiration Date Model / Serial / Lot Imp Insert Tibial Howm Tri 6x09mm [id number] Implanted:Qty: 1 on 03/29/2013 by Eric Pepper MD at [facility] Left: Knee [employer] 01/29/2018 [id number] / / [id number] Procedures Procedure Name Priority Date/Time Associated Diagnosis Comments N TERMINAL PRO BNP OUTPATIENT Routine 01/13/2023 2:51 PM PERSONAL SERVICE WORKERS Acute on chronic diastolic heart failure (H) Stage 3 chronic kidney disease, unspecified whether stage 3a or 3b CKD (H) Essential hypertension Iron malabsorption Permanent atrial fibrillation (H) VIANNEY (obstructive sleep apnea) Heart failure with preserved ejection fraction, unspecified HF chronicity (H) Chronic heart failure with preserved ejection fraction (H) BASIC METABOLIC PANEL Routine 01/13/2023 2:51 PM PERSONAL SERVICE WORKERS Acute on chronic diastolic heart failure (H) [...] terminal pro BNP outpatient (01/13/2023 2:51 PM PERSONAL SERVICE WORKERS) [facility] N Terminal Pro BNP Outpatient 2,066(H) 0 - 1,800 pg/mL 01/13/2023 4:53 PM PERSONAL SERVICE WORKERS [facility] Comment: Reference range shown [...] Unknown Venipuncture / Unknown 01/13/2023 2:51 PM PERSONAL SERVICE WORKERS 01/13/2023 4:22 PM PERSONAL SERVICE WORKERS Anthony Mazariegos MD LAB - BLOOD ORDERABL ES Performing Organization Address [facility]/ZIP Co de Phone Number [facility] [address] [facility] [facility] [place] [address], [facility] [phone] * (ABNORMAL) Basic metabolic panel (01/13/2023 2:51 PM PERSONAL SERVICE WORKERS) Sodium 139 135 - 145 mmol/L 01/13/2023 4:53 PM [facility] Comment:Reference intervals for this test were updated on 11/25/2022 to more accurately reflect our healthy population. There may be differences in the flagging of prior results with similar values performed with this method. Interpretation of those prior results can be made in the context of the updated reference intervals. Potassium 3.7 3.4 - 5.3 mmol/L 01/13/2023 4:53 PM [facility] Chloride 94(L) 98 - 107 mmol/L 01/13/2023 4:53 PM [facility] Carbon Dioxide (CO2) 32(H) 22 - 29 mmol/L 01/13/2023 4:53 PM [facility] Anion Gap 13 7 - 15 mmol/L 01/13/2023 4:53 PM [facility] Urea Nitrogen 39.2(H) 8.0 - 23.0 mg/dL 01/13/2023 4:53 PM [facility] Creatinine 2.25(H) 0.67 - 1.17 mg/dL 01/13/2023 4:53 PM [facility] GFR Estimate 29(L) >60 mL/min/1. 73m2 01/13/2023 4:53 PM [facility] Calcium 11.2(H) 8.8 - 10.2 mg/dL 01/13/2023 4:53 PM [facility] Glucose 94 70 - 99 mg/dL 01/13/2023 4:53 PM [facility] Blood STRUCTURE OF LEFT UPPER LIMB / Unknown Venipuncture / Unknown 01/13/2023 2:51 PM PERSONAL SERVICE WORKERS 01/13/2023 4:22 PM PERSONAL SERVICE WORKERS Anthony Mazariegos MD LAB - BLOOD ORDERABL ES Performing Organization Address [facility]/ZIP Co de Phone Number [facility] [address] [place] [address], [facility] [phone] from Last 3 Months Advance Directives For more information, please contact: [phone] Latest Code Status on File Code Status Date Activated Date Inactivated Comments Full Code 12/12/2021 1:28 PM 12/20/2021 3:31 PM All basic and advanced life-sustaining interventions are performed as appropriate Question Answer Comments Code status determined by: Discussion with patient/ legal decision maker Code Status History Code Status Date Activated Date Inactivated Comments Full Code 03/29/2013 6:39 PM 03/31/2013 5:03 PM Care Teams Care Aide Relationship Specialty Start Date End Date Emil Cope MD [facility] [address] [place] [address] PCP - General Emergency Medicine 09/30/22 Emmanuel Nobles MD [address] [place] [address] Hematology 02/07/22 Anthony Leyva MD [address] [place] [address] Gastroenterology 02/07/22 Anthony Leyva MD [address] [place] [address] Assigned Gastroenterology Provider 04/12/22 Evaristo Stack CNP [address] [facility] [address] [place] [address] Assigned Cancer Care Provider 07/26/22 Anthony Mazariegos MD [address] [facility] [address] [place], [place] [phone] Assigned Heart and Vascular Provider 01/17/23
--- OUTSIDE RECORDS SUMMARY | 2023-03-18 08:52 | XMS_ITS | Encounter Summary ---
Author Name Unknown Organization [place] Address [address] [facility] [place] [address] Care Team Providers Care Master Electrician Name Role Phone Emmanuel Nobles MD Unavailable [phone] Anthony Leyva MD Unavailable + [phone] Anthony Leyva MD Unavailable Evaristo Stack CNP Unavailable Emil Cope MD Primary Care Provider Anthony Mazariegos MD Unavailable Reason for Visit * Reason Comments Medication Refill Encounter Details Date Type Department Care Team (Late st Contact Info) Description 02/17/2023 Refill [place] [address] [facility] [address] [place] [address] Anthony Mazariegos MD [address] [facility] 200 [place] [address] Medication Refill Social History Tobacco Use Types [...] [facility] [address] [facility] [address] [place] [phone] Evaristo Stack CNP [address] [place] [address] Nallely Saravia MD [address]75 [place] [address] documented as of this encounter Visit Diagnoses Not on filedocumented in this encounter Care Teams Master Electrician Relationship Specialty Start Date End Date Emil Cope MD [facility] [address] [place] [address] PCP - General Emergency Medicine 09/30/22 Emmanuel Nobles MD [facility] [place] [address] Hematology 02/07/22 Anthony Leyva MD [address] [place] [address] Gastroenterology 02/07/22 Anthony Leyva MD [address] [place] [address] Assigned Gastroenterology Provider 04/12/22 Evaristo Stack CNP [address] [place] [address] Assigned Cancer Care Provider 07/26/22 Anthony Mazariegos MD [address] [place] [address] [address] [place] [address] Assigned Heart and Vascular Provider 01/17/23 documented as of this encounter
--- OUTSIDE RECORDS SUMMARY | 2023-03-18 08:53 | XMS_ITS | Encounter Summary ---
Author Name Unknown Organization [place] Address [address] [facility] [place] [address] Care Team Providers Care Production Editor Name Role Phone HenryciraEmmanuel MD Unavailable [phone] Anthony Leyva MD Unavailable [phone] Anthony Leyva MD Unavailable [phone] Evaristo Stack ANTIQUE DEALER Unavailable Shaila Mota APRN ANTIQUE DEALER Unavailable Emil Cope MD Primary Care Provider Reason for Visit * Reason Comments Medication Refill Encounter Details Date Type Department Care Team (Late st Contact Info) Description 11/17/2022 Refill [facility] Heart [facility] [address] [facility] [address] [place] [phone] Anthony Mazariegos MD [address] [facility] [address] [place], [place] [phone] Medication Refill Social History Tobacco Use Types [...] Description 05/11/2023 1:30 PM CDT Virtual Visit [facility] [address] [place] [phone] Evaristo Stack CNP [address] [facility] [address] [place], [place] [phone] Nallely Saravia MD [address] [place], [place] [phone] documented as of this encounter Visit Diagnoses Diagnosis Permanent atrial fibrillation (H) Atrial fibrillation documented in this encounter Care Teams Production Editor Relationship Specialty Start Date End Date Emil Cope MD [facility] [address] [place] [address] PCP - General Emergency Medicine 09/30/22 Emmanuel Nobles MD [facility] [place] [phone] Hematology 02/07/22 Anthony Leyva MD [address] [place] [address] Gastroenterology 02/07/22 Anthony Leyva MD [address] [place] [address] Assigned Gastroenterology Provider 04/12/22 Evaristo Stack, LANA [facility] [address] [place] [address] Assigned Cancer Care Provider 07/26/22 Shaila Mota APRN [facility] [address] [facility] [place] [address] Assigned Heart and Vascular Provider 09/20/22 01/16/23 documented as of this encounter
--- OUTSIDE RECORDS SUMMARY | 2023-03-18 08:53 | XMS_ITS | Encounter Summary ---
Author Name Unknown Organization [place] Address [address] [place] [address] Care Team Providers Care Black Jack Dealer Name Role Phone HenryciraEmmanuel MD Unavailable [phone] Anthony Leyva MD Unavailable + [phone] Anthony Leyva MD Unavailable + [phone] Evaristo Stack ENVIRONMENTAL SERVICES AIDE Unavailable [phone] Shaila Mota APRN ENVIRONMENTAL SERVICES AIDE Unavailable Emil Cope MD Primary Care Provider [...] 05/11/2023 1:30 PM CDT Virtual Visit [address] [place] [address] Evaristo Stack, ENVIRONMENTAL SERVICES AIDE [facility] [place] [address] Nallely Saravia MD [address] [place] [address] documented as of this encounter Visit Diagnoses Not on filedocumented in this encounter Care Teams Black Jack Dealer Relationship Specialty Start Date End Date Emil Cope MD [facility] [address] [place] [address] PCP - General Emergency Medicine 09/30/22 Emmanuel Nobles MD [address] [place] [address] Hematology 02/07/22 Anthony Leyva MD [address] [place] [address] Gastroenterology 02/07/22 Anthony Leyva MD [address] [place] [address] Assigned Gastroenterology Provider 04/12/22 Evaristo Stack CNP [address] [place] [address] Assigned Cancer Care Provider 07/26/22 Shaila Mota APRN ENVIRONMENTAL SERVICES AIDE [address] [facility] [place] [address] Assigned Heart and Vascular Provider 09/20/22 01/16/23 documented as of this encounter
--- OUTSIDE RECORDS SUMMARY | 2023-03-18 08:53 | XMS_ITS | Encounter Summary ---
Author Name Unknown Organization [place] Address [address] [facility] [place] [address] Care Team Providers Care Regional Trainer Name Role Phone Emmanuel Nobles MD Unavailable [phone] Anthony Leyva MD Unavailable [phone] Anthony Leyva MD Unavailable [phone] Evaristo Stack CNP Unavailable [phone] Shaila Mota APRN FACILITIES ENGINEERING MANAGER Unavailable Emil Cope MD Primary Care Provider Reason for Visit * Reason Comments Oncology Clinic Visit Encounter Details Date Type Department Care Team (Late st Contact Info) Description 11/10/2022 1:15 PM CDT Oncology Visit [address] [place] [phone] Emmanuel Nobles MD [address] [place] [address] Evaristo Stack CNP [address] [place] [phone] 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 I told him it would be totally appropriate to get his labs drawn at the [facility] and video f/up for his next [...] care to the care team. Evaristo Stack, [facility] CC: Anthony Mazariegos MD Review of Systems: [...] PLACEMENT; Surgeon: Jose Alberto Diallo MD; Location: [facility] OR ESOPHAGOSCOPY, GASTROSCOPY, DUODENOSCOPY (EGD), COMBINED N/A [...] not needed today. Pharmacy name entered into Bindo: [place], [place] - [address] [facility] Clinical concerns: 4 month follow up Araceli Ospina MA documented in this encounter Plan of Treatment Upcoming Encounters Date Type Department Care Team (Late st Contact Info) Description 05/11/2023 1:30 PM CDT Virtual Visit [facility] [address] [place] [phone] Evaristo Stack, FACILITIES ENGINEERING MANAGER [address] [facility] [address] [facility] [place] [address] Nallely Saravia MD [address] [place], [place] [phone] Scheduled Orders Name Type Priority Associated Diagnoses [...] unspecified documented in this encounter Care Teams Regional Trainer Relationship Specialty Start Date End Date Emil Cope MD [facility] [address] [place] [address] PCP - General Emergency Medicine 09/30/22 Emmanuel Nobles MD [address] [place] [address] Hematology 02/07/22 Anthony Leyva MD 909 [place] [address] Gastroenterology 02/07/22 Anthony Leyva MD [address] [place] [address] Assigned Gastroenterology Provider 04/12/22 Evaristo Stack, LANA [address] [facility] 130 [place] [address] Assigned Cancer Care Provider 07/26/22 Shaila Mota APRN FACILITIES ENGINEERING MANAGER [address] [facility], [address] [place] [address] Assigned Heart and Vascular Provider 09/20/22 01/16/23 documented as of this encounter
--- OUTSIDE RECORDS SUMMARY | 2023-03-18 08:53 | XMS_ITS | Encounter Summary ---
Author Name Unknown Organization [place] Address [address] [facility] [place] [address] Care Team Providers Care Fuel Island Attendant Name Role Phone Anthony Mazariegos MD Primary Care Provider [phone] Emmanuel Nobles MD Unavailable [phone] Anthony Leyva MD Unavailable + [phone] Anthony Leyva MD Unavailable + [phone] Evaristo Stack CNP Unavailable [phone] Anthony Mazariegos MD Unavailable [phone] Encounter Details Date Type Department Care Team (Late st Contact Info) Description 09/15/2022 1:30 PM CDT Lab [facility] Laboratory [facility]5 [place] [address] Chronic heart failure with preserved [...] 05/11/2023 1:30 PM CDT Virtual Visit [facility] [address] [place] [address] Evaristo Stack, SUPERVISOR BROADLOOM [address] [place] [address] Nallely Saravia MD [address] [place] [address] documented as of this encounter Procedures Procedure Name Priority Date/Time Associated Diagnosis Comments BASIC METABOLIC PANEL Routine 09/15/2022 12:29 PM CDT Chronic heart failure with preserved ejection fraction (H) Hypokalemia documented in this encounter Results * (ABNORMAL) Basic metabolic panel (09/15/2022 12:29 PM CDT) Sodium 139 136 - 145 mmol/L 09/15/2022 12:47 PM [facility] Potassium 3.6 3.5 - 5.0 mmol/L 09/15/2022 12:47 PM [facility] Chloride 96(L) 98 - 107 mmol/L 09/15/2022 12:47 PM [facility] Carbon Dioxide (CO2) 31 22 - 31 mmol/L 09/15/2022 12:47 PM [facility] Anion Gap 12 5 - 18 mmol/L 09/15/2022 12:47 PM [facility] Urea Nitrogen 40(H) 8 - 28 mg/dL 09/15/2022 12:47 PM [facility] Creatinine 2.43(H) 0.70 - 1.30 mg/dL 09/15/2022 12:47 PM [facility] Calcium 10.8(H) 8.5 - 10.5 mg/dL 09/15/2022 12:47 PM [facility] Glucose 120 70 - 125 mg/dL 09/15/2022 12:47 PM [facility] GFR Estimate 26(L) >60 mL/min/1.7 3m2 09/15/2022 12:47 PM CDT [facility] Blood STRUCTURE OF LEFT UPPER LIMB / Unknown Venipuncture / Unknown 09/15/2022 12:29 PM CDT 09/15/2022 12:30 PM CDT Anthony Mazariegos MD LAB - BLOOD ORDERABL ES [facility] [address] [id number] [phone] documented in this encounter Visit Diagnoses Diagnosis Chronic heart failure with preserved ejection fraction (H) Hypokalemia Hypopotassemia documented in this encounter Care Teams Fuel Island Attendant Relationship Specialty Start Date End Date Anthony Mazariegos MD [address] [facility] 200 [place] [address] PCP - General Cardiovascular Disease 01/14/22 3 Emmanuel Nobles MD [address] [place] [address] Hematology 02/07/22 Anthony Leyva MD [address] [place] [address] Gastroenterology 02/07/22 Anthony Leyva MD [address] [place] [address] Assigned Gastroenterology Provider 04/12/22 Evaristo Stack, LANA [address] [facility] 130 [place] [address] Assigned Cancer Care Provider 07/26/22 Anthony Mazariegos MD [address] [facility] 200 [place] [address] Assigned Heart and Vascular Provider 07/19/22 09/19/22 documented as of this encounter
--- OUTSIDE RECORDS SUMMARY | 2023-03-18 08:53 | XMS_ITS | Encounter Summary ---
Author Name Unknown Organization [place] Address [address] [facility] [place] [address] Care Team Providers Care Medical Records Specialist Name Role Phone HenryciraEmmanuel MD Unavailable [phone] Anthony Leyva MD Unavailable [phone] Anthony Leyva MD Unavailable + [phone] Evaristo Stack BEHAVIORAL HEALTH SPECIALIST Unavailable [phone] Shaila Mota APRN BEHAVIORAL HEALTH SPECIALIST Unavailable Emil Cope MD Primary Care Provider [...] Virtual Visit [facility] [address] [facility] [address] [place] [phone] Evaristo Stack CNP [address] [facility] [address] [place], [place] [phone] Nallely Saravia MD [address] [place], [place] [phone] documented as of this encounter Visit Diagnoses Not on filedocumented in this encounter Care Teams Medical Records Specialist Relationship Specialty Start Date End Date Emil Cope MD [facility] 2000 [place] [address] PCP - General Emergency Medicine 09/30/22 Emmanuel Nobles MD [facility] [place] [phone] Hematology 02/07/22 Anthony Leyva MD [address] [place] [address] Gastroenterology 02/07/22 Anthony Leyva MD [address] [place] [address] Assigned Gastroenterology Provider 04/12/22 Evaristo Stack CNP [address] [place] [address] Assigned Cancer Care Provider 07/26/22 Shaila Mota APRN BEHAVIORAL HEALTH SPECIALIST [address] [facility], [address] [place] [address] Assigned Heart and Vascular Provider 09/20/22 01/16/23 documented as of this encounter
--- OUTSIDE RECORDS SUMMARY | 2023-03-18 08:53 | XMS_ITS | Encounter Summary ---
Author Name Unknown Organization [place] Address [address] [facility] [address] Care Team Providers Care Biomechanical Engineer Name Role Phone HenryciraEmmanuel MD Unavailable [phone] Anthony Leyva MD Unavailable + [phone] Anthony Leyva MD Unavailable Evaristo Stack RAMP MANAGER Unavailable Shaila Mota APRN RAMP MANAGER Unavailable Emil Cope MD Primary Care Provider Encounter Details Date Type Department Care Team (Late st Contact Info) Description 01/14/2023 [facility] [place] [address] [facility] [address] [place] [phone] Estela Adam Acute on chronic diastolic heart [...] 1:30 PM CDT Virtual Visit [facility] [address] [place] [phone] Evaristo Stack CNP [address] [place], [place] [phone] Nallely Saravia MD [address] [place], [place] [phone] Scheduled Orders Name Type Priority Associated Diagnoses Orde r Schedule Basic metabolic panel Lab Routine Acute on chronic diastolic heart failure (H) Expected: 01/14/2023 (Approximate), Expires: 01/15/2024 documented as of this encounter Visit Diagnoses Diagnosis Acute on chronic diastolic heart failure (H)- Primary Acute on chronic diastolic heart failure documented in this encounter Care Teams Biomechanical Engineer Relationship Specialty Start Date End Date Emil Cope MD [facility] [address] [place] [address] PCP - General Emergency Medicine 09/30/22 Emmanuel Nobles MD [address] [place] [address] Hematology 02/07/22 Anthony Leyva MD [address] [place] [address] Gastroenterology 02/07/22 Anthony Leyva MD [address] [place] [address] Assigned Gastroenterology Provider 04/12/22 Evaristo Stack CNP [address] [place] [address] Assigned Cancer Care Provider 07/26/22 Shaila Mota, TOYA RAMP MANAGER 1600 [facility], [address] [place] [address] Assigned Heart and Vascular Provider 09/20/22 01/16/23 documented as of this encounter
--- OUTSIDE RECORDS SUMMARY | 2023-03-18 08:53 | XMS_ITS | Encounter Summary ---
Author Name Unknown Organization [place] Address [facility] [place] [address] Care Team Providers Care Occupational Therapist Aide Name Role Phone Anthony Mazariegos MD Primary Care Provider [phone] Emmanuel Nobles MD Unavailable [phone] Anthony Leyva MD Unavailable + [phone] Anthony Leyva MD Unavailable + [phone] Evaristo Stack CNP Unavailable [phone] Anthony Mazariegos MD Unavailable [phone] Encounter Details Date Type Department Care Team (Late st Contact Info) Description 08/18/2022 11:00 AM CDT Lab [facility] Laboratory [facility] [place] [phone] Chronic heart failure with preserved ejection fraction [...] 05/11/2023 1:30 PM CDT Virtual Visit [facility] [address] [place] [phone] Evaristo Stack, LANA [address] [place], [place] [phone] Nallely Saravia MD [address] [place], [place] [phone] documented as of this encounter Procedures Procedure Name Priority Date/Time Associated Diagnosis Comments BASIC METABOLIC PANEL Routine 08/18/2022 10:55 AM CDT Chronic heart failure with preserved ejection fraction (H) documented in this encounter Results * (ABNORMAL) Basic metabolic panel (08/18/2022 10:55 AM CDT) Sodium 139 136 - 145 mmol/L 08/18/2022 11:12 AM T [facility] Potassium 3.4(L) 3.5 - 5.0 mmol/L 08/18/2022 11:12 AM [facility] Chloride 96(L) 98 - 107 mmol/L 08/18/2022 11:12 AM [facility] Carbon Dioxide (CO2) 31 22 - 31 mmol/L 08/18/2022 11:12 AM [facility] Anion Gap 12 5 - 18 mmol/L 08/18/2022 11:12 AM T [facility] Urea Nitrogen 44(H) 8 - 28 mg/dL 08/18/2022 11:12 AM [facility] Creatinine 2.34(H) 0.70 - 1.30 mg/dL 08/18/2022 11:12 AM [facility] Calcium 10.9(H) 8.5 - 10.5 mg/dL 08/18/2022 11:12 AM [facility] Glucose 92 70 - 125 mg/dL 08/18/2022 11:12 AM [facility] GFR Estimate 28(L) >60 mL/min/1.7 3m2 08/18/2022 11:12 AM CDT [facility] Comment:eGFR calculated us2020 CKD-EPI equation. Blood STRUCTURE OF LEFT UPPER LIMB / Unknown Venipuncture / Unknown 08/18/2022 10:55 AM CDT 08/18/2022 10:55 AM CDT Anthony Mazariegos MD LAB - BLOOD ORDERABL ES [facility] [address] [address] [phone] documented in this encounter Visit Diagnoses Diagnosis Chronic heart failure with preserved ejection fraction (H) documented in this encounter Care Teams Occupational Therapist Aide Relationship Specialty Start Date End Date Anthony Mazariegos MD [address] [facility] [address] [place] [address] PCP - General Cardiovascular Disease 01/14/22 3 Emmanuel Nobles MD [address] [place] [address] Hematology 02/07/22 Anthony Leyva MD [address] [place] [address] Gastroenterology 02/07/22 Anthony Leyva MD [address] [place] [address] Assigned Gastroenterology Provider 04/12/22 Evaristo Stack, MAINTENANCE FITTER [address] [facility] [address] [place] [address] Assigned Cancer Care Provider 07/26/22 Anthony Mazariegos MD [address] [facility] 200 [place] [address] Assigned Heart and Vascular Provider 07/19/22 09/19/22 documented as of this encounter
--- OUTSIDE RECORDS SUMMARY | 2023-03-18 08:53 | XMS_ITS | Encounter Summary ---
Author Name Unknown Organization [place] Address [facility] [place] [address] Care Team Providers Care Sealer Sander Name Role Phone Anthony Mazariegos MD Primary Care Provider Emmanuel Nobles MD Unavailable [phone] Anthony Leyva MD Unavailable + [phone] Anthony Leyva MD Unavailable + [phone] Evaristo Stack CNP Unavailable [phone] Anthony Mazariegos MD Unavailable [phone] Encounter Details Date Type Department Care Team (Late st Contact Info) Description 2022 Orders Only [facility] [place] [address] [facility] [address] [place] [phone] Yajaira Mclaughlin, pressing machine operator heart failure with preserved ejection fraction (H) [...] 05/11/2023 1:30 PM CDT Virtual Visit [facility] [address] [place] [phone] Evaristo Stack, BACK FEEDER [employer] [address] [place], [place] [phone] Nallely Saravia MD [address] [place], [place] [phone] documented as of this encounter Results * (ABNORMAL) Basic metabolic panel (09/15/2022 12:29 PM CDT) Sodium 139 136 - 145 mmol/L 09/15/2022 12:47 PM T [facility] Potassium 3.6 3.5 - 5.0 mmol/L 09/15/2022 12:47 PM [facility] Chloride 96(L) 98 - 107 mmol/L 09/15/2022 12:47 PM [facility] Carbon Dioxide (CO2) 31 22 - 31 mmol/L 09/15/2022 12:47 PM [facility] Anion Gap 12 5 - 18 mmol/L 09/15/2022 12:47 PM [facility] Urea Nitrogen 40(H) 8 - 28 mg/dL 09/15/2022 12:47 PM [facility] Creatinine 2.43(H) 0.70 - 1.30 mg/dL 09/15/2022 12:47 PM [facility] Calcium 10.8(H) 8.5 - 10.5 mg/dL 09/15/2022 12:47 PM [facility] Glucose 120 70 - 125 mg/dL 09/15/2022 12:47 PM [facility] GFR Estimate 26(L) >60 mL/min/1.7 3m2 09/15/2022 12:47 PM [facility] Blood STRUCTURE OF LEFT UPPER LIMB / Unknown Venipuncture / Unknown 09/15/2022 12:29 PM CDT 09/15/2022 12:30 PM CDT Anthony Mazariegos MD LAB - BLOOD ORDERABL ES [facility] [address] [place] [address], [facility] [phone] documented in this encounter Visit Diagnoses Diagnosis Chronic heart failure with preserved ejection fraction (H)- Primary Hypokalemia Hypopotassemia documented in this encounter Care Teams Sealer Sander Relationship Specialty Start Date End Date Anthony Mazariegos MD [address] [facility] [address] [place] [address] PCP - General Cardiovascular Disease 01/14/22 3 Emmanuel Nobles MD [address] [place] [address] Hematology 02/07/22 Anthony Leyva MD [address] [place] [address] Gastroenterology 02/07/22 Anthony Leyva MD [address] [place] [address] Assigned Gastroenterology Provider 04/12/22 Evaristo Stack, BACK FEEDER [employer] [address] [facility] [address] [place] [address] Assigned Cancer Care Provider 07/26/22 Anthony Mazariegos MD [address] [facility] [address] [place] [address] Assigned Heart and Vascular Provider 07/19/22 09/19/22 documented as of this encounter
--- OUTSIDE RECORDS SUMMARY | 2023-03-18 08:53 | XMS_ITS | Encounter Summary ---
Author Name Unknown Organization [place] Address [facility]0 [facility] [place] [address] Care Team Providers Care Molder Inflated Ball Name Role Phone HenryciraEmmanuel MD Unavailable [phone] Anthony Leyva MD Unavailable [phone] Anthony Leyva MD Unavailable [phone] Evaristo Stack MEDICAL LABORATORY TECHNOLOGIST Unavailable Shaila Mota APRN MEDICAL LABORATORY TECHNOLOGIST Unavailable Emil Cope MD Primary Care Provider Reason for Visit * Reason Comments Medication Refill Encounter Details Date Type Department Care Team (Late st Contact Info) Description 10/20/2022 Refill [facility] Heart [facility] [address] [facility] [address] [place] [phone] Anthony Mazariegos MD [address] [facility] [address] [place], [place] [phone] Medication Refill Social History Tobacco Use Types [...] Description 05/11/2023 1:30 PM CDT Virtual Visit [facility], Located [facility] [address] [facility] [address] [place] [phone] Evaristo Stack CNP [address] [place], [place] [phone] Nallely Saravia MD [facility] [place] [address] documented as of this encounter Visit Diagnoses Diagnosis Hypokalemia Hypopotassemia documented in this encounter Care Teams Molder Inflated Ball Relationship Specialty Start Date End Date Emil Cope MD [facility] [address] [place] [address] PCP - General Emergency Medicine 09/30/22 Emmanuel Nobles MD [facility] [place] [address] Hematology 02/07/22 Anthony Leyva MD [address] [place] [address] Gastroenterology 02/07/22 Anthony Leyva MD [address] [place] [address] Assigned Gastroenterology Provider 04/12/22 E[facility]isto Stack CNP [facility] [address] [place] [address] Assigned Cancer Care Provider 07/26/22 Shaila Mota APRN MEDICAL LABORATORY TECHNOLOGIST [address] [place] [address] [address] [place] [address] Assigned Heart and Vascular Provider 09/20/22 01/16/23 documented as of this encounter
--- OUTSIDE RECORDS SUMMARY | 2023-03-18 08:53 | XMS_ITS | Encounter Summary ---
Author Name Unknown Organization [place] Address [facility] [place] [address] Care Team Providers Care Mobile Equipment Mechanic Name Role Phone Anthony Mazariegos MD Primary Care Provider Emmanuel Nobles MD Unavailable [phone] Anthony Leyva MD Unavailable + [phone] Anthony Leyva MD Unavailable + [phone] Evaristo Stack CNP Unavailable [phone] Anthony Mazariegos MD Unavailable [phone] Reason for Visit * Reason Onset Date Comments Patient Request 08/04/2022 Encounter Details Date Type Department Care Team (Late st Contact Info) Description 08/04/2022 [facility] Heart [facility] [address] [facility] [address] [place] [phone] Estela Adam Patient Request Social History Tobacco [...] 05/11/2023 1:30 PM CDT Virtual Visit [facility] [address] [facility] [address] [place] [address] Evaristo Stack, LANA [address] [place] [address] Nallely Saravia MD [address] [place] [address] documented as of this encounter Results * (ABNORMAL) Basic metabolic panel (08/18/2022 10:55 AM CDT) Pathologist [facility] Sodium 139 136 - 145 mmol/L 08/18/2022 11:12 AM [facility] Potassium 3.4(L) 3.5 - 5.0 mmol/L 08/18/2022 11:12 AM [facility] Chloride 96(L) 98 - 107 mmol/L 08/18/2022 11:12 AM [facility] Carbon Dioxide (CO2) 31 22 - 31 mmol/L 08/18/2022 11:12 AM [facility] Anion Gap 12 5 - 18 mmol/L 08/18/2022 11:12 AM [facility] Urea Nitrogen 44(H) 8 - 28 mg/dL 08/18/2022 11:12 AM [facility] Creatinine 2.34(H) 0.70 - 1.30 mg/dL 08/18/2022 11:12 AM [facility] Calcium 10.9(H) 8.5 - 10.5 mg/dL 08/18/2022 11:12 AM [facility] Glucose 92 70 - 125 mg/dL 08/18/2022 11:12 AM [facility] GFR Estimate 28(L) >60 mL/min/1.7 3m2 08/18/2022 11:12 AM CDT [facility] Comment:eGFR calculated us2020 CKD-EPI equation. Blood STRUCTURE OF LEFT UPPER LIMB / Unknown Venipuncture / Unknown 08/18/2022 10:55 AM CDT 08/18/2022 10:55 AM CDT Anthony Mazariegos MD LAB - BLOOD ORDERABL ES [facility] Lab [address] [address] [phone] documented in this encounter Visit Diagnoses Diagnosis Chronic heart failure with preserved ejection fraction (H) documented in this encounter Care Teams Mobile Equipment Mechanic Relationship Specialty Start Date End Date Anthony Mazariegos MD [address] [facility] 200 [place] [address] PCP - General Cardiovascular Disease 01/14/22 3 Emmanuel Nobles MD [address] [place] [address] Hematology 02/07/22 Anthony Leyva MD [address] [place] [address] Gastroenterology 02/07/22 Anthony Leyva MD [address] [place] [address] Assigned Gastroenterology Provider 04/12/22 Evaristo Stack, MEDIA SENIOR RECRUITER [address] [facility] [address] [place] [address] Assigned Cancer Care Provider 07/26/22 Anthony Mazariegos MD [address] [facility] 200 [place] [address] Assigned Heart and Vascular Provider 07/19/22 09/19/22 documented as of this encounter
--- OUTSIDE RECORDS SUMMARY | 2023-03-18 08:53 | XMS_ITS | Encounter Summary ---
Author Name Unknown Organization [place] Address [facility] [place] [address] Care Team Providers Care Manager Intel Name Role Phone Emmanuel Nobles MD Unavailable [phone] Anthony Leyva MD Unavailable [phone] Anthony Leyva MD Unavailable [phone] Evaristo Stack EXTENSION EDGER Unavailable Shaila Mota APRN EXTENSION EDGER Unavailable Emil Cope MD Primary Care Provider [...] ejection fraction (H) Anthony Mazariegos MD [address] [facility] [address] [place] [address] Referral ID Status Reason Start Date Expiration Date V isits Requested Visits Authorized [id number] Pending Review 01/13/2023 01/13/2024 1 1 Question Answer Preferred Location: [facility] Follow-up with: Self Scheduling Instructions: [facility] will call you to coordinate your care as prescribed by your provider. If you have concerns about scheduling, please call [phone]. Comments [facility] will call you to coordinate your care as prescribed by your provider. If you have concerns about scheduling, please call [phone]. ER SHREDDER Reason for Visit * Reason Comments Follow Up * Consultation (Routine: Next available opening) - Pending Review Specialty Diagnoses / Procedures Referred By Contac t Referred To Contact Cardiovascular Disease Diagnoses Chronic heart failure with preserved ejection fraction (H) Shaila Mota APRN EXTENSION EDGER [address] [facility] [place] [address] Referral ID Status Reason Start Date Expiration Date V isits Requested Visits Authorized [id number] Pending Review 09/15/2022 09/15/2023 1 1 Encounter Details Date Type Department Care Team (Late st Contact Info) Description 01/13/2023 2:20 PM FILLER SHREDDER Office Visit [facility] Heart [facility] [address] [facility] [address] [place] [address] Shaila Mota APRN EXTENSION EDGER [address] [facility] [place] [address] Anthony Mazariegos MD [address] [facility] [address] [place] [address] Acute on chronic diastolic heart [...] Comments Blood Pressure 132/60 01/13/2023 2:03 PM FILLER SHREDDER Pulse 83 01/13/2023 2:03 PM FILLER SHREDDER Temperature - - Respiratory Rate 16 01/13/2023 2:03 PM FILLER SHREDDER Oxygen Saturation 96% 01/13/2023 2:03 PM FILLER SHREDDER Inhaled Oxygen Concentration - - Weight 110.5 kg (243 lb 8 oz) 01/13/2023 2:03 PM FILLER SHREDDER Height 182.9 cm (6') 01/13/2023 2:03 PM FILLER SHREDDER Body Mass Index 33.02 01/13/2023 2:03 PM FILLER SHREDDER documented in this encounter Progress Notes * Anthony Mazariegos MD - 01/13/2023 2:20 PM CST Images from the original note were not included. [facility] [phone] Assessment/Recommendations Patient with heart failure with preserved [...] cooperative and in no acute distress. ENT/Mouth: [place]/moist oral mucosa EYES: no scleral icterus, normal [...] PLACEMENT; Surgeon: Jose Alberto Diallo MD; Location: [facility] OR ESOPHAGOSCOPY, GASTROSCOPY, DUODENOSCOPY (EGD), COMBINED N/A 12/13/2021 Procedure: ESOPHAGOGASTRODUODENOSCOPY (EGD) WITH BIOPSIES; Surgeon: Jose Alberto Diallo MD; Location: [facility] Main OR HERNIA REPAIR left nephrectomy[ RELEASE [...] Currently Other Topics Concern Parent/sibling w/ CABG, [place] or angioplasty before 65F 55M? Not Asked [...] TSH 1.56 12/16/2021 INR 1.67 (H) 12/12/2021 ER SHREDDER documented in this encounter Plan of Treatment Upcoming Encounters Date Type Department Care Team (Late st Contact Info) Description 05/11/2023 1:30 PM CDT Virtual Visit [facility] [address] [facility] [address] [place] [address] Evaristo Stack CNP [address] [place] [address] [address] [place] [address] Nallely Saravia MD [address] [place] [address] Scheduled Referrals Name Type Priority Associated Diagnoses [...] PRO BNP OUTPATIENT Routine 01/13/2023 2:51 PM FILLER SHREDDER Acute on chronic diastolic heart failure (H) Stage 3 chronic kidney disease, unspecified whether stage 3a or 3b CKD (H) Essential hypertension Iron malabsorption Permanent atrial fibrillation (H) VIANNEY (obstructive sleep apnea) Heart failure with preserved ejection fraction, unspecified HF chronicity (H) Chronic heart failure with preserved ejection fraction (H) BASIC METABOLIC PANEL Routine 01/13/2023 2:51 PM FILLER SHREDDER Acute on chronic diastolic heart failure (H) Stage 3 chronic kidney disease, unspecified whether stage 3a or 3b CKD (H) Essential hypertension Iron malabsorption Permanent atrial fibrillation (H) VIANNEY (obstructive sleep apnea) Heart failure with preserved ejection fraction, unspecified HF chronicity (H) Chronic heart failure with preserved ejection fraction (H) documented in this encounter Results * (ABNORMAL) Basic metabolic panel (01/13/2023 2:51 PM FILLER SHREDDER) [facility] Sodium 139 135 - 145 mmol/L 01/13/2023 4:53 PM [facility] Comment:Reference intervals for this test were updated on 11/25/2022 to more accurately reflect our healthy population. There may be differences in the flagging of prior results with similar values performed with this method. Interpretation of those prior results can be made in the context of the updated reference intervals. Potassium 3.7 3.4 - 5.3 mmol/L 01/13/2023 4:53 PM FILLER SHREDDER [facility] Chloride 94(L) 98 - 107 mmol/L 01/13/2023 4:53 PM [facility] Carbon Dioxide (CO2) 32(H) 22 - 29 mmol/L 01/13/2023 4:53 PM [facility] Anion Gap 13 7 - 15 mmol/L 01/13/2023 4:53 PM [facility] Urea Nitrogen 39.2(H) 8.0 - 23.0 mg/dL 01/13/2023 4:53 PM [facility] Creatinine 2.25(H) 0.67 - 1.17 mg/dL 01/13/2023 4:53 PM [facility] GFR Estimate 29(L) >60 mL/min/1. 73m2 01/13/2023 4:53 PM [facility] Calcium 11.2(H) 8.8 - 10.2 mg/dL 01/13/2023 4:53 PM [facility] Glucose 94 70 - 99 mg/dL 01/13/2023 4:53 PM [facility] Blood STRUCTURE OF LEFT UPPER LIMB / Unknown Venipuncture / Unknown 01/13/2023 2:51 PM FILLER SHREDDER 01/13/2023 4:22 PM FILLER SHREDDER Anthony Mazariegos MD LAB - BLOOD ORDERABL ES [facility] [address] [facility] [place] [address], [facility] [phone] * (ABNORMAL) N terminal pro BNP outpatient (01/13/2023 2:51 PM FILLER SHREDDER) N Terminal Pro BNP Outpatient 2,066(H) 0 - 1,800 pg/mL 01/13/2023 4:53 PM [facility] Comment: Reference range shown and [...] Unknown Venipuncture / Unknown 01/13/2023 2:51 PM FILLER SHREDDER 01/13/2023 4:22 PM FILLER SHREDDER Anthony Mazariegos MD LAB - BLOOD ORDERABL ES [facility] [address] [address] [phone] documented in this encounter Visit Diagnoses Diagnosis [...] (H) documented in this encounter Care Teams Manager Intel Relationship Specialty Start Date End Date Emil Cope MD [facility] [address] [place] [address] PCP - General Emergency Medicine 09/30/22 Emmanuel Nobles MD [address] [place] [address] Hematology 02/07/22 Anthony Leyva MD [address] [place] [address] Gastroenterology 02/07/22 Anthony Leyva MD [address] [place] [address] Assigned Gastroenterology Provider 04/12/22 Evaristo Stcak, EXTENSION EDGER [address] [place] [address] Assigned Cancer Care Provider 07/26/22 Shaila Mota APRN EXTENSION EDGER [address] [facility] [place] [address] Assigned Heart and Vascular Provider 09/20/22 01/16/23 documented as of this encounter
--- OUTSIDE RECORDS SUMMARY | 2023-03-18 08:53 | XMS_ITS | Encounter Summary ---
Author Name Unknown Organization [place] Address [address] [facility] [place] [address] Care Team Providers Care Banquet Server Name Role Phone Anthony Mazariegos MD Primary Care Provider [phone] Emmanuel Nobles MD Unavailable [phone] Anthony Leyva MD Unavailable Verona Mclain RESTAURANT TEAM MEMBER VICE ADMIRAL Unavailable Anthony Leyva MD Unavailable + [phone] Shaila Mota RESTAURANT TEAM MEMBER VICE ADMIRAL Unavailable Encounter Details Date Type Department Care [...] Visit [facility] [address] [facility] [address] [place] [phone] Evaristo Stack CNP [address] [facility] [address] [place], [place] [phone] Nallely Saravia MD [address] [place], [place] [phone] documented as of this encounter Visit Diagnoses Not on filedocumented in this encounter Care Teams Banquet Server Relationship Specialty Start Date End Date Anthony Mazariegos MD [address] [facility] [address] [place], [place] [phone] PCP - General Cardiovascular Disease 01/14/22 3 Emmanuel Nobles MD [address] [facility] [place] [phone] Hematology 02/07/22 Anthony Leyva MD [address] [place] [address] Gastroenterology 02/07/22 Verona Mclain APRN VICE ADMIRAL [address] [place] [address] Assigned Cancer Care Provider 04/05/22 07/25/22 Anthony Leyva MD [address] [place] [address] Assigned Gastroenterology Provider 04/12/22 Shaila Mota APRN VICE ADMIRAL [address] [facility] [place] [address] Assigned Heart and Vascular Provider 05/17/22 07/18/22 documented as of this encounter
--- OUTSIDE RECORDS SUMMARY | 2023-03-18 08:53 | XMS_ITS | Encounter Summary ---
Author Name Unknown Organization [place] Address [facility] [place] [address] Care Team Providers Care Reed Or Wind Instrument Tuner Name Role Phone Anthony Mazariegos MD Primary Care Provider + [phone] Emmanuel Nobles MD Unavailable [phone] Anthony Leyva MD Unavailable + [phone] Anthony Leyva MD Unavailable + [phone] Evaristo Stack CNP Unavailable [phone] Anthony Mazariegos MD Unavailable [phone] Encounter Details Date Type Department Care Team [...] Description 05/11/2023 1:30 PM CDT Virtual Visit [address] [place] [address] Evaristo Stack CNP [address] [place], [place] [phone] Nallely Saravia MD [address] [place] [address] documented as of this encounter Visit Diagnoses Not on filedocumented in this encounter Care Teams Reed Or Wind Instrument Tuner Relationship Specialty Start Date End Date Anthony Mazariegos MD [address] [facility] [address] [place], [place] [phone] PCP - General Cardiovascular Disease 01/14/22 3 Emmanuel Nobles MD [facility] [place] [phone] Hematology 02/07/22 Anthony Leyva MD [address] [place] [address] 9280[address] Gastroenterology 02/07/22 Anthony Leyva MD [address] [place] [address] 148885 Assigned Gastroenterology Provider 04/12/22 Evaristo Stack CNP [facility] [address] [place] [address] Assigned Cancer Care Provider 07/26/22 Anthony Mazariegos MD [address] [facility] [place] [address] Assigned Heart and Vascular Provider 07/19/22 09/19/22 documented as of this encounter
--- OUTSIDE RECORDS SUMMARY | 2023-03-18 08:53 | XMS_ITS | Encounter Summary ---
Author Name Unknown Organization [place] Address [facility]0 [facility] [place] [address] Care Team Providers Care Managing Consultant Clinical Professor Name Role Phone Anthony Cherry MD Primary Care Provider [phone] Emmanuel Nobles MD Unavailable Anthony Leyva MD Unavailable + [phone] Anthony Leyva MD Unavailable + [phone] Evaristo Stack CNP Unavailable [phone] Anthony Cherry MD Unavailable [phone] Reason for Referral * Consultation (Routine: Next available opening) - Pending Review Specialty Diagnoses / Procedures Referred By Madeleine watters Referred To Contact Cardiovascular Disease Diagnoses Chronic heart failure with preserved ejection fraction (H) Shaila Mota, AUDIOLOGY ASSISTANT SHIPPING/RECEIVING MANAGER [address] [facility] [place] [address] Referral ID Status Reason Start Date Expiration Date V isits Requested Visits Authorized [id number] Pending Review 09/15/2022 09/15/2023 1 1 Question Answer Follow-up with: Self Scheduling Instructions: [facility] will call you to coordinate your care as prescribed by your provider. If you have concerns about scheduling, please call [phone]. Comments [facility] will call you to coordinate your care as prescribed by your provider. If you have concerns about scheduling, please call [phone]. * Consultation (Routine: Next available opening) - Pending Review Specialty Diagnoses / Procedures Referred By Madeleine watters Referred To Contact Cardiovascular Disease Diagnoses Chronic heart failure with preserved ejection fraction (H) Shaila Mota APRN CNP [address] [facility] [place] [address] Referral ID Status Reason Start Date Expiration Date V isits Requested Visits Authorized [id number] Pending Review 09/15/2022 09/15/2023 1 1 Question Answer Follow-up with: Other Economic Historian Rhonda cherry Scheduling Instructions: [facility] will call you to coordinate your care as prescribed by your provider. If you have concerns about scheduling, please call [phone]. Comments [facility] will call you to coordinate your care as prescribed by your provider. If you have concerns about scheduling, please call [phone]. Reason for Visit * Reason Comments Follow Up * Consultation (Routine: Next available opening) - Pending Review Specialty Diagnoses / Procedures Referred By Madeleine watters Referred To Contact Cardiovascular Disease Diagnoses Chronic heart failure with preserved ejection fraction (H) Shaila Mota APRN CNP [address] [facility] [place] [address] Referral ID Status Reason Start Date Expiration Date V isits Requested Visits Authorized [id number] Pending Review 05/12/2022 05/12/2023 1 1 Encounter Details Date Type Department Care Team (Late st Contact Info) Description 09/15/2022 12:50 PM CDT Office Visit [facility] [place] [address] [facility] [address] [place] [address] Shaila Mota APRN SHIPPING/RECEIVING MANAGER [address] [facility] [place], [place] [phone] Chronic heart failure with preserved ejection fraction [...] a pleasure to see you today at [facility]. My recommendations after this visit [...] a 82 year old male seen at [facility] heart failure clinic today for continued [...] PLACEMENT; Surgeon: Jose Alberto Diallo MD; Location: [facility] Main OR ??? ESOPHAGOSCOPY, GASTROSCOPY, DUODENOSCOPY [...] Other Topics Concern ??? Parent/sibling w/ CABG, ME or angioplasty before 65F 55M? Not Asked [...] Description 05/11/2023 1:30 PM CDT Virtual Visit [address] [place] [phone] Evaristo Stack CNP [address] [place] [address] [address] [place], [place] [phone] Nallely Saravia MD [address] [place], [place] [phone] Scheduled Referrals Name Type Priority Associated Diagnoses [...] (H) documented in this encounter Care Teams Managing Consultant Clinical Professor Relationship Specialty Start Date End Date Anthony Cherry MD [address] [facility] 200 [place] [address] PCP - General Cardiovascular Disease 01/14/22 3 Emmanuel Nobles MD [address] [place] [address] Hematology 02/07/22 Anthony Leyva MD [address] [place] [address] Gastroenterology 02/07/22 Anthony Leyva MD [address] [place] [address] Assigned Gastroenterology Provider 04/12/22 Evaristo Stack CNP [address] [address] Assigned Cancer Care Provider 07/26/22 Anthony Cherry MD [address] [facility] 200 [place] [address] Assigned Heart and Vascular Provider 07/19/22 09/19/22 documented as of this encounter
--- OUTSIDE RECORDS SUMMARY | 2023-03-18 08:53 | XMS_ITS | Encounter Summary ---
Author Name Unknown Organization [place] Address [address] [place] [address] Care Team Providers Care Material Hauler Name Role Phone Anthony Mazariegos MD Primary Care Provider + [phone] Emmanuel Nobles MD Unavailable [phone] Anthony Leyva MD Unavailable [phone] Verona Mclain MARKET RISK SPECIALIST DIRECTOR OF COMMUNITY SERVICES Unavailable Anthony Leyva MD Unavailable + [phone] Shaila Mota MARKET RISK SPECIALIST DIRECTOR OF COMMUNITY SERVICES Unavailable Encounter Details Date Type Department Care [...] Description 05/11/2023 1:30 PM CDT Virtual Visit [facility] [address] [facility] [address] [place] [address] Evaristo Stack CNP [address] [facility] [address] [place], [place] [phone] Nallely Saravia MD [address] [place], [place] [phone] documented as of this encounter Visit Diagnoses Not on filedocumented in this encounter Care Teams Material Hauler Relationship Specialty Start Date End Date Anthony Mazariegos MD [address] [facility] [address] [place], [place] [phone] PCP - General Cardiovascular Disease 01/14/22 3 Emmanuel Nobles MD [address] [facility] [place] [phone] Hematology 02/07/22 Anthony Leyva MD [address] [place] [address] Gastroenterology 02/07/22 Verona Mclain APRN DIRECTOR OF COMMUNITY SERVICES [address] [place] [address] Assigned Cancer Care Provider 04/05/22 07/25/22 Anthony Leyva MD 909 [place] [address] Assigned Gastroenterology Provider 04/12/22 Shaila Mota APRN DIRECTOR OF COMMUNITY SERVICES [address] [facility], [address] [place] [address] Assigned Heart and Vascular Provider 05/17/22 07/18/22 documented as of this encounter
--- OUTSIDE RECORDS SUMMARY | 2023-03-18 08:53 | XMS_ITS | Encounter Summary ---
Author Name Unknown Organization [place] Address Replaced by [facility] [place] [address] Care Team Providers Care Accountant Tax Name Role Phone Anthony Mazariegos MD Primary Care Provider + [phone] Emmanuel Nobles MD Unavailable [phone] Anthony Leyva MD Unavailable + [phone] Anthony Leyva MD Unavailable + [phone] Evaristo Stack CNP Unavailable [phone] Anthony Mazariegos MD Unavailable [phone] Encounter Details Date Type Department Care Team [...] Description 05/11/2023 1:30 PM CDT Virtual Visit [address] [place] [address] Evaristo Stack CNP [address] [place], [place] [phone] Nallely Saravia MD [address] [place] [address] documented as of this encounter Visit Diagnoses Not on filedocumented in this encounter Care Teams Accountant Tax Relationship Specialty Start Date End Date Anthony Mazariegos MD [address] [facility] [place], [place] [phone] PCP - General Cardiovascular Disease 01/14/22 3 Emmanuel Nobles MD [facility] [place] [place] [id number] Hematology 02/07/22 Anthony Leyva MD [address] [place] [address]87[address] Gastroenterology 02/07/22 Anthony Leyva MD [address] [place] [address] 893[address] Assigned Gastroenterology Provider 04/12/22 Evaristo Stack CNP [facility] [address] [place] [address] Assigned Cancer Care Provider 07/26/22 Anthony Mazariegos MD [address] [facility] [place] [address] Assigned Heart and Vascular Provider 07/19/22 09/19/22 documented as of this encounter
--- OUTSIDE RECORDS SUMMARY | 2023-03-18 08:54 | XMS_ITS | Encounter Summary ---
Author Name Unknown Organization [place] Address [facility] [address] Care Team Providers Care Filter Tank Tender Helper Name Role Phone Anthony Mazariegos MD Primary Care Provider [phone] Emmanuel Nobles MD Unavailable [phone] Anthony Leyva MD Unavailable [phone] Verona Mclain ESTIMATING ENGINEER COTTRELL BLOWER Unavailable Anthony Leyva MD Unavailable + [phone] Shaila Mota APRN COTTRELL BLOWER Unavailable Evaristo Stack COTTRELL BLOWER Unavailable [phone] Anthony Mazariegos MD Unavailable [phone] Shaila Mota APRN COTTRELL BLOWER Unavailable Encounter Details Date Type Department Care Team (Late st Contact Info) Description 05/21/2022 Telephone [facility] [address] [facility] [address] [place] [address] Stephanie Burnham Social History Tobacco [...] 05/11/2023 1:30 PM CDT Virtual Visit [address] [place] [address] Evaristo Stack CNP [address] [facility] [address] [place], [place] [phone] Nallely Saravia MD [address] [place], [place] [phone] documented as of this encounter Visit Diagnoses Not on filedocumented in this encounter Care Teams Filter Tank Tender Helper Relationship Specialty Start Date End Date Anthony Mazariegos MD [address] [facility] [address] [place], [place] [phone] PCP - General Cardiovascular Disease 01/14/22 3 Emmanuel Nobles MD [facility]5 [facility] [place], [place] [phone] Hematology 02/07/22 Anthony Leyva MD [address] [place] [address] Gastroenterology 02/07/22 Verona Mclain APRN COTTRELL BLOWER [address] [place] [address] Assigned Cancer Care Provider 04/05/22 07/25/22 Anthony Leyva MD [address] [place] [address] Assigned Gastroenterology Provider 04/12/22 Shaila Mota APRN COTTRELL BLOWER [address] [facility], [address] [place] [address] Assigned Heart and Vascular Provider 05/17/22 07/18/22 Evaristo Stack, [facility]NA [facility] [address] [place] [address] Assigned Cancer Care Provider 07/26/22 Anthony Mazariegos MD [address] [facility] [address] [place], [place] [phone] Assigned Heart and Vascular Provider 07/19/22 09/19/22 Shaila Mota APRN COTTRELL BLOWER [address] [facility], [address] [place], [place] [phone] Assigned Heart and Vascular Provider 09/20/22 01/16/23 documented as of this encounter
--- OUTSIDE RECORDS SUMMARY | 2023-03-18 08:54 | XMS_ITS | Encounter Summary ---
Author Name Unknown Organization [place] Address [address] [place] [address]. [place] [address] Care Team Providers Care Corporate Travel Expert Name Role Phone Anthony Mazariegos MD Primary Care Provider + [phone] Emmanuel Nobles MD Unavailable [phone] Anthony Leyva MD Unavailable + [phone] Anthony Mazariegos MD Unavailable [phone] Reason for Visit * Reason Onset Date Comments *-*INCOMING RECORDS*-* 04/03/2022 Encounter Details Date Type Department Care Team (Late st Contact Info) Description 04/03/2022 PRE VISIT [facility] [address] [address] Anthony Leyva MD [address] [place] [address] *-*INCOMING RECORDS*-* Social History Tobacco Use [...] DNA QUANT LEVEL HEPATITIS B CORE ANTIBODY TIC PREPARER documented in this encounter Plan of Treatment Upcoming Encounters Date Type Department Care Team (Late st Contact Info) Description 05/11/2023 1:30 PM CDT Virtual Visit [facility] [address] [place] [address] [address] [place] [address] Evaristo Stack, LANA [address] [facility] 130 [place], [place] [phone] Nallely Saravia MD [address] [place], [place] [phone] documented as of this encounter Visit Diagnoses Not on filedocumented in this encounter Care Teams Corporate Travel Expert Relationship Specialty Start Date End Date Anthony Mazariegos MD [address] [facility] [place], [place] [phone] PCP - General Cardiovascular Disease 01/14/22 3 Emmanuel Nobles MD [address] [facility] [place], [place] [phone] Hematology 02/07/22 Anthony Leyva MD 909 [place] [address] Gastroenterology 02/07/22 Anthony Mazariegos MD [address] [facility] [address] [place] [address] Assigned Heart and Vascular Provider 03/08/22 05/16/22 documented as of this encounter
--- OUTSIDE RECORDS SUMMARY | 2023-03-18 08:54 | XMS_ITS | Encounter Summary ---
Author Name Unknown Organization [place] Address [address] [place] [address] Care Team Providers Care Regional Environmental Manager Name Role Phone Anthony Mazariegos MD Primary Care Provider + [phone] Emmanuel Nobles MD Unavailable [phone] Anthony Lyeva MD Unavailable + [phone] Anthony Mazariegos MD Unavailable +[phone] Reason for Referral * Diagnostic Imaging Ultrasound (Routine) - Pending Review Specialty Diagnoses / Procedures Referred By Contac t Referred To Contact Diagnoses Cirrhosis of liver without ascites, unspecified hepatic cirrhosis type (H) Procedures US Abdomen Complete w Doppler Complete Anthony Leyva MD [address] [place] [address] Referral ID Status Reason Start Date Expiration Date V isits Requested Visits Authorized [id number] Pending Review 04/03/2022 04/03/2023 1 1 MAKER Reason for Visit * Reason Comments Video Visit * Consultation (Routine) - Closed Specialty Diagnoses / Procedures Referred By Contac t Referred To Contact Gastroenterology Diagnoses Cirrhosis of liver without ascites, unspecified hepatic cirrhosis type (H) Emmanuel Nobles MD [address] [facility] [place] [address] Referral ID Status Reason Start Date Expiration Date Visits Re quested Visits Authorized [id number] Closed 02/05/2022 02/05/2023 1 1 Encounter Details Date Type Department Care Team (Late st Contact Info) Description 04/03/2022 9:30 AM BOOT MAKER Virtual Visit [facility] [address] [address] Emmanuel Nobles MD [address] [place] [address] Anthony Leyva MD [address] [place] [address] Abnormal liver diagnostic imaging (Primary Dx); Cirrhosis [...] Coronavirus/COVID-19? No / Unsure 04/02/2022 9:40 AM BOOT MAKER documented as of this encounter Progress Notes * Anthony Leyva MD - 04/03/2022 9:30 AM CST Tutu is a 81 year old who is being evaluated via a billable video visit. How would you like to obtain your AVS? MyChart If the video visit is dropped, the invitation should be resent by: Send to e- mail at: [email or web address] Will anyone else be joining your video visit? Yes: Daughter Ngozi and Cally will be on. How would they like to receive their invitation? Send to e-mail at: [email or web address] Video-Visit Details Type of service: Video Visit [...] is really struggling. He was admitted to [facility] on December 12, 2021 with symptomatic severe iron deficiency anemia with shortness of breath. Ashley that he was dealing with volume overload [...] BIOPSIES; Surgeon: Jose Alberto Diallo MD; [facility] ??? HERNIA REPAIR ??? left [...] to contact our office. Anthony Leyva M.D. Edging Machine Catcherassistant signal maintainer [facility] Approximately 35 minutes of non gyez-sy-pcnz time were spent in review of the patient's medical record on 04/02/22. This included review of previous: clinic visits, hospital records, lab results, imaging studies, and procedural documentation. The findings from this review are summarized in the above note. MAKER documented in this encounter Plan of Treatment Upcoming Encounters Date Type Department Care Team (Late st Contact Info) Description 05/11/2023 1:30 PM CDT Virtual Visit [facility] [address] [facility] [address] [place] [address] Evaristo Stack CNP [address] [facility] [address] [place], [place] [phone] Nallely Saravia MD [address] [place], [place] [phone] documented as of this encounter Results * [...] US ABDOMEN COMPLETE WITH DOPPLER COMPLETE LOCATION: [facility] DATE/TIME: 05/12/2022 10:09 AM INDICATION: Screen for [...] US ABDOMEN COMPLETE WITH DOPPLER COMPLETE LOCATION: [facility] DATE/TIME: 05/12/2022 10:09 AM INDICATION: Screen for [...] (H) documented in this encounter Care Teams Regional Environmental Manager Relationship Specialty Start Date End Date Anthony Mazariegos MD [address] [facility] [address] [place] [address] PCP - General Cardiovascular Disease 01/14/22 3 Emmanuel Nobles MD [address] [place] [address] [place] [address] Hematology 02/07/22 Anthony Leyva MD [address] [place] [address] Gastroenterology 02/07/22 Anthony Mazariegos MD [address] [facility] [address] [place] [address] Assigned Heart and Vascular Provider 03/08/22 05/16/22 documented as of this encounter
--- OUTSIDE RECORDS SUMMARY | 2023-03-18 08:54 | XMS_ITS | Encounter Summary ---
Author Name Unknown Organization [place] Address [address] [facility] [place] [address] Care Team Providers Care Mathematics Lecturer Name Role Phone Anthony Mazariegos MD Primary Care Provider Emmanuel Nobles MD Unavailable [phone] Anthony Leyva MD Unavailable [phone] Verona Mclian ESTATE CONSERVATOR EXCAVATING CONTRACTOR Unavailable Anthony Leyva MD Unavailable [phone] Shaila Mota ESTATE CONSERVATOR EXCAVATING CONTRACTOR Unavailable Evaristo Stack EXCAVATING CONTRACTOR Unavailable Anthony Mazariegos MD Unavailable [phone] Shaila Mota APRN EXCAVATING CONTRACTOR Unavailable Emil Cope MD Primary Care Provider Anthony Mazariegos MD Unavailable [phone] Encounter Details Date Type Department Care Team (Late st Contact Info) Description 05/30/2022 [facility] Heart [facility] [address] [facility] [address] [place] [address] Unknown, Provider Social History Tobacco [...] Visit [facility] [address] [facility] [facility] [address] [place] [address] Evaristo Stack, LANA [address] [facility] [address] [place], [place] [phone] Nallely Saravia MD [address] [place], [place] [phone] documented as of this encounter Procedures Procedure Name Priority Date/Time Associated Diagnosis Comments LAB RESULT - HIM SCAN Routine 05/30/2022 documented in this encounter Results * Lab Result - HIM Scan (05/30/2022) Provider Unknown MH NON-BEAKER LAB TE STING documented in this encounter Visit Diagnoses Not on filedocumented in this encounter Care Teams Mathematics Lecturer Relationship Specialty Start Date End Date Anthony Mazariegos MD [address] [facility] 200 [place] [address] PCP - General Cardiovascular Disease 01/14/22 3 Emil Cope MD [facility] [address] [place] [address] PCP - General Emergency Medicine 09/30/22 Emmanuel Nobles MD [address] [place] [address] Hematology 02/07/22 Anthony Leyva MD [address]09 [place] [address] Gastroenterology 02/07/22 Verona Mclain APRN EXCAVATING CONTRACTOR [address] [place] [address] Assigned Cancer Care Provider 04/05/22 07/25/22 Anthony Leyva MD [address]09 [place] [address] Assigned Gastroenterology Provider 04/12/22 Shaila Mota APRN EXCAVATING CONTRACTOR [address] [place] [address] Assigned Heart and Vascular Provider 05/17/22 07/18/22 Evaristo Stack, LANA [facility] [address]ez [address] [address] Assigned Cancer Care Provider 07/26/22 Anthony Mazariegos MD [address] [place] [address] Assigned Heart and Vascular Provider 07/19/22 09/19/22 Shaila Mota APRN EXCAVATING CONTRACTOR [address] [place] [address] Assigned Heart and Vascular Provider 09/20/22 01/16/23 Anthony Mazariegos MD [address] [place] [address] [address] [place] [address] Assigned Heart and Vascular Provider 01/17/23 documented as of this encounter
--- OUTSIDE RECORDS SUMMARY | 2023-03-18 08:54 | XMS_ITS | Encounter Summary ---
Author Name Unknown Organization [place] Address [address] [place] [address]. [place] [address] Care Team Providers Care Client Relations Representative Name Role Phone Anthony Mazariegos MD Primary Care Provider Emmanuel Nobles MD Unavailable [phone] Anthony Leyva MD Unavailable [phone] Verona Mclain SEAM FELLER GHOST WRITER Unavailable Anthony Leyva MD Unavailable [phone] Shaila Mota SEAM FELLER GHOST WRITER Unavailable Reason for Visit * Reason Comments Medication Refill Encounter Details Date Type Department Care Team (Late st Contact Info) Description 06/17/2022 Refill [facility] [place] 1600 [facility] [address] [place] [address] Anthony Mazariegos MD 1600 [facility] [address] 200 [place], [place] [id number] Medication Refill Social History Tobacco Use Types [...] 1:30 PM CDT Virtual Visit [facility] [address] [facility] [address] [place] [phone] Evaristo Stack CNP 1875 [facility] 130 [place], [place] [id number] Nallely Saravia MD 1575 [place] [address] documented as of this encounter Visit Diagnoses Diagnosis Hypokalemia Hypopotassemia documented in this encounter Care Teams Client Relations Representative Relationship Specialty Start Date End Date Anthony Mazariegos MD [address] [place] [address] 200 [place] [address] PCP - General Cardiovascular Disease 01/14/22 3 Emmanuel Nobles MD 1825 [facility] [place], [place] [phone] Hematology 02/07/22 Anthony Leyva MD [address] [place] [address] Gastroenterology 02/07/22 Verona Mclain APRN GHOST WRITER 1575 [place] [address] Assigned Cancer Care Provider 04/05/22 07/25/22 Anthony Leyva MD [address] [place] [address] Assigned Gastroenterology Provider 04/12/22 Shaila Mota APRN GHOST WRITER 1600 [facility], [address] [place] [address] Assigned Heart and Vascular Provider 05/17/22 07/18/22 documented as of this encounter
--- OUTSIDE RECORDS SUMMARY | 2023-03-18 08:54 | XMS_ITS | Encounter Summary ---
Author Name Unknown Organization [place] Address [address] [facility] [place] [address] Care Team Providers Care Field Scout Name Role Phone Anthony Mazariegos MD Primary Care Provider Emmanuel Nobles MD Unavailable [phone] Anthony Leyva MD Unavailable + [phone] Anthony Mazariegos MD Unavailable [phone] Verona Mclain LAUNDRY SUPERVISOR FOREMAN/PILE DRIVING AND ERECTION Unavailable [phone] Anthony Leyva MD Unavailable + [phone] Encounter Details Date Type Department Care Team (Late st Contact Info) Description 05/12/2022 Orders Only [facility] Laboratory 5 [place] [phone] Alie Ndiaye Chronic heart failure with preserved [...] Virtual Visit [facility] [address] [place] [phone] Evaristo Stack, FOREMAN/PILE DRIVING AND ERECTION 1875 [facility] [address] [place], [place] [phone] Nallely Saravia MD [address] [place], [place] [phone] Scheduled Orders Name Type Priority Associated Diagnoses [...] - 145 mmol/L 05/12/2022 9:49 AM CDT [facility] Potassium 3.6 3.5 - 5.0 mmol/L 05/12/2022 9:49 AM CDT [facility] Chloride 97(L) 98 - 107 mmol/L 05/12/2022 9:49 AM CDT [facility] Carbon Dioxide (CO2) 28 22 - 31 mmol/L 05/12/2022 9:49 AM CDT [facility] Anion Gap 14 5 - 18 mmol/L 05/12/2022 9:49 AM CDT [facility] Urea Nitrogen 41(H) 8 - 28 mg/dL 05/12/2022 9:49 AM CDT [facility] Creatinine 2.20(H) 0.70 - 1.30 mg/dL 05/12/2022 9:49 AM CDT [facility] Calcium 10.4 8.5 - 10.5 mg/dL 05/12/2022 9:49 AM CDT [facility] Glucose 102 70 - 125 mg/dL 05/12/2022 9:49 AM CDT [facility] GFR Estimate 30(L) >60 mL/min/1.7 3m2 05/12/2022 9:49 AM CDT [facility] Comment:eGFR calculated usin 2020 CKD-EPI equation. Blood STRUCTURE OF LEFT UPPER LIMB / Unknown Venipuncture / Unknown 05/12/2022 9:30 AM CDT 05/12/2022 9:32 AM CDT Anthoyn Mazariegos MD LAB - BLOOD ORDERABL ES [facility] [address] [facility] [place] [address] [phone] documented in this encounter Visit Diagnoses Diagnosis Chronic heart failure with preserved ejection fraction (H)- Primary Hypokalemia Hypopotassemia documented in this encounter Care Teams Field Scout Relationship Specialty Start Date End Date Anthony Mazariegos MD [address] [facility] [address] [place] [address] PCP - General Cardiovascular Disease 01/14/22 3 Emmanuel Nobles MD [address] [place] [address] Hematology 02/07/22 Anthony Leyva MD 909 [place] [address] Gastroenterology 02/07/22 Anthony Mazariegos MD [address] [facility] [address] 200 [place] [address] Assigned Heart and Vascular Provider 03/08/22 05/16/22 Verona Mclain APRN FOREMAN/PILE DRIVING AND ERECTION [address] [place] [address] Assigned Cancer Care Provider 04/05/22 07/25/22 Anthony Leyva MD 9 [place] [address] Assigned Gastroenterology Provider 04/12/22 documented as of this encounter
--- OUTSIDE RECORDS SUMMARY | 2023-03-18 08:54 | XMS_ITS | Encounter Summary ---
Author Name Unknown Organization [place] Address [facility] [place] [address] Care Team Providers Care Zoo Caretaker Name Role Phone Anthony Mazariegos MD Primary Care Provider Emmanuel Nobles MD Unavailable [phone] Anthony Leyva MD Unavailable [phone] Verona Mclain CUSTOMER AGENT ASSISTANT IMPORT MANAGER Unavailable Anthony Leyva MD Unavailable [phone] Shaila Mota CUSTOMER AGENT ASSISTANT IMPORT MANAGER Unavailable Reason for Referral * Consultation (Routine: [...] ejection fraction (H) Anthony Mazariegos MD [address] [facility] [address] [place] [address] Referral ID Status Reason Start Date Expiration Date V isits Requested Visits Authorized [id number] Pending Review 07/17/2022 07/17/2023 1 1 Question Answer Preferred Location: [facility] Follow-up with: Self Scheduling Instructions: [facility] will call you to coordinate your care as prescribed by your provider. If you have concerns about scheduling, please call [phone]. Comments [facility] will call you to coordinate your care as prescribed by your provider. If you have concerns about scheduling, please call [phone]. Reason for Visit * Reason Comments Follow [...] ejection fraction (H) Anthony Mazariegos MD [address] [facility] [address] [place] [address] Referral ID Status Reason Start Date Expiration Date Visits Re quested Visits Authorized [id number] Closed 03/07/2022 03/07/2023 1 1 Encounter Details Date Type Department Care Team (Late st Contact Info) Description 07/17/2022 3:50 PM CDT Office Visit [facility] Heart [facility] [place] [id number] [facility] [address] [place] [phone] Anthony Mazariegos MD [address] [facility] [address] [place] [address] Acute on chronic diastolic heart [...] not included. [facility] [phone] Assessment/Recommendations Patient with heart failure with preserved [...] decrease his diuretics as well. 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 He will be followed up in our heart failure clinic in August and I will see him in the fall. Thank you for allowing us to participate in his care. 40 minutes spent with chart review, patient visit, documentation and order filler. History of Present Illness/Subjective Mr. Tutu Ngo [...] cooperative and in no acute distress. ENT/Mouth: Magee/moist oral mucosa EYES: no scleral icterus, normal [...] Other Topics Concern ??? Parent/sibling w/ CABG, [place] or angioplasty before 65F 55M? Not Asked [...] 1:30 PM CDT Virtual Visit [facility] 1875 [facility] [address] [place] [address] Evaristo Stack, LANA 1875 [facility] [address] [place] [address] Nallely Saravia MD [address] [place] [address] Scheduled Referrals Name Type Priority [...] (H) documented in this encounter Care Teams Zoo Caretaker Relationship Specialty Start Date End Date Anthony Mazariegos MD [address] [facility] [address] [place] [address] PCP - General Cardiovascular Disease 01/14/22 3 [place] [address] [place] [address] [place] [address] Hematology 02/07/22 Anthony Leyva MD 909 [place] [address] Gastroenterology 02/07/22 Verona Mclain APRN ASSISTANT IMPORT MANAGER [address] [place] [address] Assigned Cancer Care Provider 04/05/22 07/25/22 Anthony Leyva MD 909 [place] [address] Assigned Gastroenterology Provider 04/12/22 Shaila Mota APRN ASSISTANT IMPORT MANAGER [address] [facility], [address] [place], [place] [phone] Assigned Heart and Vascular Provider 05/17/22 07/18/22 documented as of this encounter
--- OUTSIDE RECORDS SUMMARY | 2023-03-18 08:54 | XMS_ITS | Encounter Summary ---
Author Name Unknown Organization [place] Address [facility] [place] [address] Care Team Providers Care Automotive Electrician Helper Name Role Phone Anthony Mazariegos MD Primary Care Provider Emmanuel Nobles MD Unavailable [phone] Anthony Leyva MD Unavailable [phone] Verona Mclain MOLD TECHNICIAN HUMAN RESOURCES PROFESSIONAL Unavailable Anthony Leyva MD Unavailable [phone] Shaila Mota MOLD TECHNICIAN HUMAN RESOURCES PROFESSIONAL Unavailable Encounter Details Date Type Department Care Team (Late st Contact Info) Description 05/20/2022 Telephone [facility] [address] [facility] [address] [place] [address] Ngozi Hester, RN Social History [...] sent then. Resent the new Rx to [place] pharmacy, per his request. jl * Telephone Encounter - Ngozi Hester RN - 05/20/2022 9:54 AM CDT ----- Message from Benita Barrera sent at 05/20/2022 9:45 AM CDT ----- Regarding: JASPER pt Patient has already contacted their pharmacy. The medication or refill issue is below: Ordering Supervisor Home Energy Consultant: JASPER pt Medication: Eliquis - pt told the pharmacy he increased his dose and response they received said inappropriate? Preferred Pharmacy/City: [facility] Phone Number for Patient: Additional Info: documented in this encounter Plan of Treatment Upcoming Encounters Date Type Department Care Team (Late st Contact Info) Description 05/11/2023 1:30 PM CDT Virtual Visit [address] [place] [address] Evaristo Stack, LANA [address] [place] [address] 130 [place], [place] [phone] Nallely Saravia MD [address] [place] [address] documented as of this encounter Visit Diagnoses Diagnosis Permanent atrial fibrillation (H) Atrial fibrillation documented in this encounter Care Teams Automotive Electrician Helper Relationship Specialty Start Date End Date Anthony Mazariegos MD [address] [place] [address] 200 [place], [place] [phone] PCP - General Cardiovascular Disease 01/14/22 3 Emmanuel Nobles MD [address] [facility] [place] [address] Hematology 02/07/22 Anthony Leyva MD [address] [place] [address] Gastroenterology 02/07/22 Verona Mclain APRN HUMAN RESOURCES PROFESSIONAL [address] [place] [address] Assigned Cancer Care Provider 04/05/22 07/25/22 Anthony Leyva MD [address] [place] [address] Assigned Gastroenterology Provider 04/12/22 Shaila Mota APRN HUMAN RESOURCES PROFESSIONAL 1600 [facility], [address] [place] [address] Assigned Heart and Vascular Provider 05/17/22 07/18/22 documented as of this encounter
--- OUTSIDE RECORDS SUMMARY | 2023-03-18 08:54 | XMS_ITS | Encounter Summary ---
Author Name Unknown Organization [place] Address [address] [facility] [place] [address] Care Team Providers Care Forming Operator Name Role Phone Anthony Mazariegos MD Primary Care Provider [phone] Emmanuel Nobles MD Unavailable [phone] Anthony Leyva MD Unavailable + [phone] Anthony Mazariegos MD Unavailable [phone] Encounter Details Date Type Department Care Team [...] Coronavirus/COVID-19? No / Unsure 04/04/2022 9:58 AM ASSEMBLER CAMPER documented as of this encounter Plan of Treatment Upcoming Encounters Date Type Department Care Team (Late st Contact Info) Description 05/11/2023 1:30 PM CDT Virtual Visit [place] [id number] [facility] [address] [place] [address] Evaristo Stack, ALNA [address] [place] [address] [address] [place] [address] Nallely Saravia MD [address] [place] [address] documented as of this encounter Visit Diagnoses Not on filedocumented in this encounter Care Teams Forming Operator Relationship Specialty Start Date End Date Anthony Mazariegos MD 1600 [facility] 200 [place] [address] PCP - General Cardiovascular Disease 01/14/22 3 [place] [address] [place] [address] [place] [address] Hematology 02/07/22 Anthony Leyva MD [address] [place] [address] Gastroenterology 02/07/22 Anthony Mazariegos MD 1600 [facility] 200 [place] [address] Assigned Heart and Vascular Provider 03/08/22 05/16/22 documented as of this encounter
--- OUTSIDE RECORDS SUMMARY | 2023-03-18 08:54 | XMS_ITS | Encounter Summary ---
Author Name Unknown Organization [place] Address [facility] [place] [address] Care Team Providers Care Lime Mixer Tender Name Role Phone Anthony Mazariegos MD Primary Care Provider [phone] Emmanuel Nobles MD Unavailable [phone] Anthony Leyva MD Unavailable + [phone] Anthony Mazariegos MD Unavailable [phone] Verona Mclain ALGEBRA TUTOR DINKEY SKINNER Unavailable [phone] Anthony Leyva MD Unavailable + [phone] Encounter Details Date Type Department Care Team [...] Description 05/11/2023 1:30 PM CDT Virtual Visit [address] [place] [phone] Evaristo Stack CNP 1875 [facility] 130 [place], [place] [phone] Nallely Saravia MD 1575 [place], [place] [phone] documented as of this encounter Visit Diagnoses Not on filedocumented in this encounter Care Teams Lime Mixer Tender Relationship Specialty Start Date End Date Anthony Mazariegos MD 1600 [facility] 200 [place], [place] [phone] PCP - General Cardiovascular Disease 01/14/22 3 Emmanuel Nobles MD [facility]5 [place] [address] Hematology 02/07/22 Anthony Leyva MD [address] [place] [address] Gastroenterology 02/07/22 Anthony Mazariegos MD 1600 [facility] 200 [place] [address] Assigned Heart and Vascular Provider 03/08/22 05/16/22 Verona Mclain APRN DINKEY SKINNER [address] [place] [address] Assigned Cancer Care Provider 04/05/22 07/25/22 Anthony Leyva MD [address] [place] [address] Assigned Gastroenterology Provider 04/12/22 documented as of this encounter
--- OUTSIDE RECORDS SUMMARY | 2023-03-18 08:54 | XMS_ITS | Encounter Summary ---
Author Name Unknown Organization [place] Address [address] [facility] [place] [address] Care Team Providers Care Fish Housekeeper Name Role Phone Anthony Mazariegos MD Primary Care Provider Emmanuel Nobles MD Unavailable [phone] Anthony Leyva MD Unavailable [phone] Anthony Mazariegos MD Unavailable [phone] Reason for Visit * Reason Comments Hematology Anemia, iron deficie ncy; Iron deficiency anemia due to chronic blood loss Encounter Details Date Type Department Care Team (Late st Contact Info) Description 04/04/2022 11:15 AM NUCLEAR PLANT CONSTRUCTION WORKER Oncology Visit [address] [place] [address] Evaristo Stack, LANA 1875 [facility] [address] [place], [place] [phone] Verona Mclain APRN BROWNING PROCESSOR [address] [place], [place] [phone] Other iron deficiency anemia (Primary Dx); Myelodysplastic [...] Coronavirus/COVID-19? No / Unsure 04/04/2022 9:58 AM NUCLEAR PLANT CONSTRUCTION WORKER documented as of this encounter Last Filed Vital Signs Vital Sign Reading Time Taken Comments Blood Pressure 129/72 04/04/2022 10:03 AM NUCLEAR PLANT CONSTRUCTION WORKER Pulse 88 04/04/2022 10:03 AM NUCLEAR PLANT CONSTRUCTION WORKER Temperature - - Respiratory Rate 16 04/04/2022 10:03 AM NUCLEAR PLANT CONSTRUCTION WORKER Oxygen Saturation 94% 04/04/2022 10:03 AM NUCLEAR PLANT CONSTRUCTION WORKER Inhaled Oxygen Concentration - - Weight 107.5 kg (237 lb) 04/04/2022 10:03 AM NUCLEAR PLANT CONSTRUCTION WORKER Height 182.9 cm (6') 04/04/2022 10:03 AM NUCLEAR PLANT CONSTRUCTION WORKER Body Mass Index 32.14 04/04/2022 10:03 AM NUCLEAR PLANT CONSTRUCTION WORKER documented in this encounter Progress Notes * Verona Mclain APRN BROWNING PROCESSOR - 04/04/2022 11:[address] [facility] Hematology and Oncology Progress Note Patient: Tutu [...] does live over 40 miles away in [place]. At this time I told him it would be totally appropriate to get his labs drawn at the [place] clinic and then faxed up to us before his appointment. He is meeting with his chuck wagon cook in June so he would like to have an appointment on the same day. We will send lab orders, CBC, CMP, ferritin to the [place] lab so they will be drawn a [...] was drawn on April 01, 2022 at [facility]. Hemoglobin is 12.8, white blood cell count [...] minutes. Signed by: Verona Mclain APRN CNP EAR PLANT CONSTRUCTION WORKER * Silvia Quiles - 04/04/2022 11:15 AM [...] not needed today. Pharmacy name entered into Wisr: [place], [place] - [address] [place] [address] Clinical concerns: labs results Silvia Quiles EAR PLANT CONSTRUCTION WORKER documented in this encounter Plan of Treatment Upcoming Encounters Date Type Department Care Team (Late st Contact Info) Description 05/11/2023 1:30 PM CDT Virtual Visit [address] [place] [address] Evaristo Stack, BROWNING PROCESSOR [address] [facility] [address] [place] [address] [place] [address] Nallely Saravia MD [address] [place] [address] Scheduled Orders Name Type Priority [...] - 145 mmol/L 07/17/2022 2:10 PM CDT [facility] Potassium 3.6 3.5 - 5.0 mmol/L 07/17/2022 2:10 PM CDT [facility] Chloride 97(L) 98 - 107 mmol/L 07/17/2022 2:10 PM CDT [facility] Carbon Dioxide (CO2) 31 22 - 31 mmol/L 07/17/2022 2:10 PM CDT [facility] Anion Gap 10 5 - 18 mmol/L 07/17/2022 2:10 PM CDT [facility] Urea Nitrogen 44(H) 8 - 28 mg/dL 07/17/2022 2:10 PM CDT [facility] Creatinine 2.32(H) 0.70 - 1.30 mg/dL 07/17/2022 2:10 PM CDT [facility] Calcium 10.2 8.5 - 10.5 mg/dL 07/17/2022 2:10 PM CDT [facility] Glucose 92 70 - 125 mg/dL 07/17/2022 2:10 PM CDT [facility] Alkaline Phosphatase 90 45 - 120 U/L 07/17/2022 2:10 PM CDT [facility] AST 21 0 - 40 U/L 07/17/2022 2:10 PM CDT [facility] ALT 22 0 - 45 U/L 07/17/2022 2:10 PM CDT [facility] Protein Total 7.7 6.0 - 8.0 g/dL 07/17/2022 2:10 PM CDT [facility] Albumin 3.9 3.5 - 5.0 g/dL 07/17/2022 2:10 PM CDT [facility] Bilirubin Total 0.6 0.0 - 1.0 mg/dL 07/17/2022 2:10 PM CDT [facility] GFR Estimate 28(L) >60 mL/min/1.7 3m2 07/17/2022 2:10 PM CDT [facility] Comment:eGFR calculated usin 2020 CKD-EPI equation. Blood BLOOD SPECIMEN / Unknown Venipuncture / Unknown 07/17/2022 1:36 PM CDT 07/17/2022 1:46 PM CDT Verona Mclain APRN BROWNING PROCESSOR LAB - BLOOD O RDERABLES [facility] Lab [address] [facility] [place], [place] [phone] [place] [address] * Ferritin (07/17/2022 1:36 PM CDT) Pathologist [facility] Ferritin 116 31 - 409 ng/mL 07/17/2022 9:12 PM CDT [facility] Blood BLOOD SPECIMEN / Unknown Venipuncture / Unknown 07/17/2022 1:36 PM CDT 07/17/2022 1:46 PM CDT Verona Mclain APRN BROWNING PROCESSOR LAB - BLOOD O RDERABLES [facility] [address] [facility] [address] Building, [address] [place] [address], [facility] [phone] documented in this encounter Visit Diagnoses Diagnosis Other iron deficiency anemia- Primary Myelodysplastic syndrome (H) Myelodysplastic syndrome, unspecified documented in this encounter Care Teams Fish Housekeeper Relationship Specialty Start Date End Date Anthony Mazariegos MD 1600 [facility] 200 [place] [address] PCP - General Cardiovascular Disease 01/14/22 3 Emmanuel Nobles MD [address] [place] [address] [place] [address] Hematology 02/07/22 Anthony Leyva MD [address] [place] [address] Gastroenterology 02/07/22 Anthony Mazariegos MD 1600 [facility] 200 [place] [address] Assigned Heart and Vascular Provider 03/08/22 05/16/22 documented as of this encounter
--- OUTSIDE RECORDS SUMMARY | 2023-03-18 08:54 | XMS_ITS | Encounter Summary ---
Author Name Unknown Organization [place] Address [facility] [place] [address] Care Team Providers Care Jumpbasting Lining Baster Name Role Phone Anthony Mazariegos MD Primary Care Provider Emmanuel Nobles MD Unavailable [phone] Anthony Leyva MD Unavailable [phone] Verona Mclain ACCOUNTING PROFESSOR SUPERVISOR ROUGH END Unavailable Anthony Leyva MD Unavailable [phone] Shaila Mota ACCOUNTING PROFESSOR SUPERVISOR ROUGH END Unavailable Evaristo Stack SUPERVISOR ROUGH END Unavailable [phone] Anthony Mazariegos MD Unavailable [phone] Shaila Mota APRN SUPERVISOR ROUGH END Unavailable Emil Cope MD Primary Care Provider Anthony Mazariegos MD Unavailable Reason for Visit * Reason Comments Medication Refill Encounter Details Date Type Department Care Team (Late st Contact Info) Description 05/17/2022 Refill [facility] [address] [facility] [address] [place] [address] Anthony Mazariegos MD [address] [facility] 200 [place] [address] Medication Refill Social History Tobacco [...] Description 05/11/2023 1:30 PM CDT Virtual Visit [address] [place] [phone] Evaristo Stack, SUPERVISOR ROUGH END [address] [place] [address] [address] [place] [address] Nallely Saravia MD [address] [place], [place] [id number] documented as of this encounter Visit Diagnoses Diagnosis Acute on chronic diastolic heart failure (H) Acute on chronic diastolic heart failure Stage 3 chronic kidney disease, unspecified whether stage 3a or 3b CKD (H) Essential hypertension Unspecified essential hypertension documented in this encounter Care Teams Jumpbasting Lining Baster Relationship Specialty Start Date End Date Anthony Mazariegos MD [address] [facility] 200 [place] [address] PCP - General Cardiovascular Disease 01/14/22 3 Emil Cope MD [facility] [address] [place] [address] PCP - General Emergency Medicine 09/30/22 Emmanuel Nobles MD [address] [place] [address] Hematology 02/07/22 Anthony Leyva MD 909 [place] [address] Gastroenterology 02/07/22 Verona Mclain APRN SUPERVISOR ROUGH END [address] [place] [address] Assigned Cancer Care Provider 04/05/22 07/25/22 Anthony Leyva MD 909 [place] [address] Assigned Gastroenterology Provider 04/12/22 Shaila Mota APRN SUPERVISOR ROUGH END [address] [place] [address], [address] [place] [address] Assigned Heart and Vascular Provider 05/17/22 07/18/22 Evaristo Stack, LANA [address] [facility] [address] [place] [address] Assigned Cancer Care Provider 07/26/22 Anthony Mazariegos MD [address] [place] [address] 200 [place] [address] Assigned Heart and Vascular Provider 07/19/22 09/19/22 Shaila Mota APRN SUPERVISOR ROUGH END [address] [place] [address], [address] [place] [address] Assigned Heart and Vascular Provider 09/20/22 01/16/23 Anthony Mazariegos MD [address] [facility] [address] [place] [address] Assigned Heart and Vascular Provider 01/17/23 documented as of this encounter
--- OUTSIDE RECORDS SUMMARY | 2023-03-18 08:54 | XMS_ITS | Encounter Summary ---
Author Name Unknown Organization [place] Address [facility] [place] [address] Care Team Providers Care Foundation Drill Operator Helper Name Role Phone Anthony Mazariegos MD Primary Care Provider Emmanuel Nobles MD Unavailable [phone] Anthony Leyva MD Unavailable [phone] Anthony Mazariegos MD Unavailable Verona Mclain APRN KNIFEMAN Unavailable Anthony Leyva MD Unavailable + [phone] Reason for Referral * Consultation (Routine: Next available opening) - Pending Review Specialty Diagnoses / Procedures Referred By Contac t Referred To Contact Cardiovascular Disease Diagnoses Chronic heart failure with preserved ejection fraction (H) Shaila Mota APRN KNIFEMAN [address] [facility], [address] [place] [address] Referral ID Status Reason Start Date Expiration Date V isits Requested Visits Authorized [id number] Pending Review 05/12/2022 05/12/2023 1 1 Question Answer Follow-up with: Self Scheduling Instructions: [facility] will call you to coordinate your care as prescribed by your provider. If you have concerns about scheduling, please call [phone]. Comments [facility] will call you to coordinate your care as prescribed by your provider. If you have concerns about scheduling, please call [phone]. Reason for Visit * Reason Comments Follow Up * Consultation (Routine: Next available opening) - Closed Specialty Diagnoses / Procedures Referred By Madeleine watters Referred To Contact Cardiovascular Disease Diagnoses Chronic heart failure with preserved ejection fraction (H) Shaila Mota APRN KNIFEMAN [address] [facility], [address] [place] [address] Referral ID Status Reason Start Date Expiration Date Visits Re quested Visits Authorized [id number] Closed 02/03/2022 02/03/2023 1 1 Encounter Details Date Type Department Care Team (Late st Contact Info) Description 05/12/2022 12:50 PM CDT Office Visit [facility] [address] [facility] [address] [place] [phone] Shaila Mota, TOYA KNIFEMAN [address] [facility], [address] [place], [place] [phone] Chronic heart failure with preserved ejection fraction [...] a pleasure to see you today at [facility]. My recommendations after this visit include: - [...] does not I recommend he see a envelope sealer Plan: 1. Increase Eliquis to 5 mg [...] a 81 year old male seen at [facility] heart failure clinic today for continued [...] clubbing Skin: no xanthelasma, warm. Neurologic: normal welfare manager bilateral, no tremors Psychiatric: alert and oriented [...] Jose Alberto Diallo MD; Location: [facility] Main OR ??? ESOPHAGOSCOPY, GASTROSCOPY, DUODENOSCOPY (EGD), COMBINED N/A 12/13/2021 Procedure: ESOPHAGOGASTRODUODENOSCOPY (EGD) WITH BIOPSIES; Surgeon: Jose Alberto Diallo MD; Location: [facility] Main OR ??? HERNIA REPAIR ??? [...] Other Topics Concern ??? Parent/sibling w/ CABG, NV or angioplasty before 65F 55M? Not Asked [...] 05/11/2023 1:30 PM CDT Virtual Visit [facility] [address] [facility] [address] [place] [address] Evaristo Stack CNP [address] [place] [address] [address] [place], [place] [phone] Nallely Saravia MD [address] [place], [place] [phone] Scheduled Referrals Name Type Priority Associated Diagnoses [...] failure documented in this encounter Care Teams Foundation Drill Operator Helper Relationship Specialty Start Date End Date Anthony Mazariegos MD 1600 [facility] 200 [place] [address] PCP - General Cardiovascular Disease 01/14/22 3 [place] [address] [place] [address] [place] [address] Hematology 02/07/22 Anthony Leyva MD [address] [place] [address] Gastroenterology 02/07/22 Anthony Mazariegos MD [address] [facility] 200 [place] [address] Assigned Heart and Vascular Provider 03/08/22 05/16/22 Verona Mclain APRN KNIFEMAN [address] [place] [address] Assigned Cancer Care Provider 04/05/22 07/25/22 Anthony Leyva MD [address] [place] [address] Assigned Gastroenterology Provider 04/12/22 documented as of this encounter
--- OUTSIDE RECORDS SUMMARY | 2023-03-18 08:54 | XMS_ITS | Encounter Summary ---
Author Name Unknown Organization [place] Address [address] [place] [address]. [place] [address] Care Team Providers Care Technical Artist Name Role Phone Anthony Mazariegos MD Primary Care Provider Emmanuel Nobles MD Unavailable [phone] Anthony Leyva MD Unavailable [phone] Verona Mclain HEALTH INFORMATION MANAGEMENT DIRECTOR CONSTRUCTION ENGINEER Unavailable [phone] Anthony Leyva MD Unavailable [phone] Shaila Mota HEALTH INFORMATION MANAGEMENT DIRECTOR CONSTRUCTION ENGINEER Unavailable Reason for Visit * Reason Comments Hematology Other iron deficienc y anemia Encounter Details Date Type Department Care Team (Late st Contact Info) Description 07/17/2022 2:15 PM CDT Oncology Visit [address], [address] [place] [address] Evaristo Stack CNP [address] [place] [address] [address] [place] [address] Other iron deficiency anemia (Primary [...] not needed today. Pharmacy name entered into [facility]: [address] Clinical concerns: Itchy rash, left arm red. Comes and goes. Ashutosh Bustamante LPN * Evaristo Stack CNP - 07/17/2022 2:15 PM CDT [facility] Hematology and Oncology Progress Note Patient: [...] Patient lives over 40 miles away in [place], [place]. I told him it would be totally appropriate to get his labs drawn at the [facility] and video f/up forhis next appointment if [...] care to the care team. Evaristo Stack, CONSTRUCTION ENGINEER CC: Anthony Mazariegos MD Review of Systems: [...] PLACEMENT; Surgeon: Jose Alberto Diallo MD; Location: [facility] Main OR ??? ESOPHAGOSCOPY, GASTROSCOPY, DUODENOSCOPY (EGD), COMBINED N/A 12/13/2021 Procedure: ESOPHAGOGASTRODUODENOSCOPY (EGD) WITH BIOPSIES; Surgeon: Jose Alberto Diallo MD; Location: [facility] Main OR ??? HERNIA REPAIR ??? left [...] 05/11/2023 1:30 PM CDT Virtual Visit [address] [place] [phone] Evaristo Stack CNP [address] [place] [address] [address] [place] [address] Nallely Saravia MD [address] [place], [place] [phone] Scheduled Orders Name Type Priority Associated Diagnoses Orde r Schedule CBC with platelets Lab Routine Other iron deficiency anemia Expected: 11/10/2022 (Approximate), Expires: 07/22/2023 Ferritin Lab Routine Other iron deficiency anemia Expected: 11/10/2022 (Approximate), Expires: 07/22/2023 documented as of this encounter Visit Diagnoses Diagnosis Other iron deficiency anemia- Primary documented in this encounter Care Teams Technical Artist Relationship Specialty Start Date End Date Anthony Mazariegos MD [address] [facility] [address] [place] [address] PCP - General Cardiovascular Disease 01/14/22 3 [place] [address] [place] [address] [place] [address] Hematology 02/07/22 Anthony Leyva MD [address] [place] [address] Gastroenterology 02/07/22 Verona Mclain APRN CONSTRUCTION ENGINEER [address] [place] [address] Assigned Cancer Care Provider 04/05/22 07/25/22 Anthony Leyva MD [address] [place] [address] Assigned Gastroenterology Provider 04/12/22 Shaila Mota APRN CONSTRUCTION ENGINEER [address] [facility], [address] [place] [address] Assigned Heart and Vascular Provider 05/17/22 07/18/22 documented as of this encounter
--- OUTSIDE RECORDS SUMMARY | 2023-03-18 08:54 | XMS_ITS | Encounter Summary ---
Author Name Unknown Organization [place] Address [facility], [facility]0 [facility] [place] [address] Care Team Providers Care Bias Binding Folder Name Role Phone Anthony Mazariegos MD Primary Care Provider [phone] Emmanuel Nobles MD Unavailable [phone] Anthony Leyva MD Unavailable [phone] Anthony Mazariegos MD Unavailable [phone] Verona Mclain CALENDERING MACHINE OPERATOR CAN TENDER Unavailable Anthony Leyva MD Unavailable + [phone] Encounter Details Date Type Department Care Team (Late st Contact Info) Description 04/21/2022 Orders Only [facility] [place] [address] [facility] [address] [place] [address] Yajaira Mclaughlin, RN Hypokalemia Social History Tobacco [...] Coronavirus/COVID-19? No / Unsure 04/04/2022 9:58 AM UNDER SEAL OPERATOR documented as of this encounter Plan of Treatment Upcoming Encounters Date Type Department Care Team (Late st Contact Info) Description 05/11/2023 1:30 PM CDT Virtual Visit [facility] [address] [facility] [address] [place] [phone] Evaristo Stack, CAN TENDER [address] [facility] [address] [place], [place] [phone] Nallely Saravia MD [address] [place], [place] [phone] documented as of this encounter Results * (ABNORMAL) Basic metabolic panel (05/12/2022 9:30 AM CDT) Sodium 139 136 - 145 mmol/L 05/12/2022 9:49 AM [facility] Potassium 3.6 3.5 - 5.0 mmol/L 05/12/2022 9:49 AM [facility] Chloride 97(L) 98 - 107 mmol/L 05/12/2022 9:49 AM [facility] Carbon Dioxide (CO2) 28 22 - 31 mmol/L 05/12/2022 9:49 AM [facility] Anion Gap 14 5 - 18 mmol/L 05/12/2022 9:49 AM [facility] Urea Nitrogen 41(H) 8 - 28 mg/dL 05/12/2022 9:49 AM [facility] Creatinine 2.20(H) 0.70 - 1.30 mg/dL 05/12/2022 9:49 AM [facility] Calcium 10.4 8.5 - 10.5 mg/dL 05/12/2022 9:49 AM [facility] Glucose 102 70 - 125 mg/dL 05/12/2022 9:49 AM [facility] GFR Estimate 30(L) >60 mL/min/1.7 3m2 05/12/2022 9:49 AM [facility] Comment:eGFR calculated usin g 2020 CKD-EPI equation. Blood STRUCTURE OF LEFT UPPER LIMB / Unknown Venipuncture / Unknown 05/12/2022 9:30 AM CDT 05/12/2022 9:32 AM CDT Anthony Mazariegos MD LAB - BLOOD ORDERABL ES [facility] [address] [facility] [address] [place] [address] [phone] documented in this encounter Visit Diagnoses Diagnosis Hypokalemia Hypopotassemia documented in this encounter Care Teams Bias Binding Folder Relationship Specialty Start Date End Date Anthony Mazariegos MD [address] [facility] 200 [place] [address] PCP - General Cardiovascular Disease 01/14/22 3 Emmanuel Nobles MD [address] [facility] [place] [address] Hematology 02/07/22 Anthony Leyva MD [address] [place] [address] Gastroenterology 02/07/22 Anthony Mazariegos MD [address] [facility] 200 [place] [address] Assigned Heart and Vascular Provider 03/08/22 05/16/22 Verona Mclain APRN CAN TENDER [address] [place] [address] Assigned Cancer Care Provider 04/05/22 07/25/22 Anthony Leyva MD [address] [place] [address] Assigned Gastroenterology Provider 04/12/22 documented as of this encounter
--- OUTSIDE RECORDS SUMMARY | 2023-03-18 08:54 | XMS_ITS | Encounter Summary ---
Author Name Unknown Organization [place] Address [address] [place] [address]. [place] [address] Care Team Providers Care Reliability Manager Name Role Phone Anthony Mazariegos MD Primary Care Provider Emmanuel Nobles MD Unavailable [phone] Anthony Leyva MD Unavailable [phone] Verona Mclain ROSE GROWER INTERNAL INVESTIGATOR Unavailable Anthony Leyva MD Unavailable [phone] Shaila Mota ROSE GROWER INTERNAL INVESTIGATOR Unavailable Encounter Details Date Type Department Care Team (Late st Contact Info) Description 07/17/2022 1:45 PM CDT Lab [address], [address] [place] [address] Evaristo Stack CNP [address] [place] [address] [phone] Other iron deficiency anemia; Myelodysplastic syndrome (H) [...] 1:30 PM CDT Virtual Visit [facility] [address] [facility] [address] [place] [address] Evaristo Stack, INTERNAL INVESTIGATOR [address] [facility] [address] [place] [address] Nallely Saravia MD [address] [place] [address] documented as of this encounter [...] - 11.0 10e3/uL 07/17/2022 1:52 PM CDT [facility] Comment:Preliminary ANC is 7 .2 RBC Count 3.90(L) 4.40 - 5.90 10e6/uL 07/17/2022 1:52 PM CDT [facility] Hemoglobin 12.4(L) 13.3 - 17.7 g/dL 07/17/2022 1:52 PM [facility] Hematocrit 37.2(L) 40.0 - 53.0 % 07/17/2022 1:52 PM [facility] MCV 95 78 - 100 fL 07/17/2022 1:52 PM [facility] MCH 31.8 26.5 - 33.0 pg 07/17/2022 1:52 PM [facility] MCHC 33.3 31.5 - 36.5 g/dL 07/17/2022 1:52 PM [facility] RDW 14.4 10.0 - 15.0 % 07/17/2022 1:52 PM [facility] Platelet Count 177 150 - 450 10e3/uL 07/17/2022 1:52 PM [facility] % Neutrophils 66 % 07/17/2022 1:52 PM [facility] % Lymphocytes 21 % 07/17/2022 1:52 PM [facility] % Monocytes 9 % 07/17/2022 1:52 PM [facility] % Eosinophils 3 % 07/17/2022 1:52 PM [facility] % Basophils 1 % 07/17/2022 1:52 PM [facility] % Immature Granulocytes 0 % 07/17/2022 1:52 PM [facility] NRBCs per 100 WBC 0 <1 /100 023 1:52 PM [facility] Absolute Neutrophils 7.2 1.6 - 8.3 10e3/uL 07/17/2022 1:52 PM [facility] Absolute Lymphocytes 2.3 0.8 - 5.3 10e3/uL 07/17/2022 1:52 PM [facility] Absolute Monocytes 1.0 0.0 - 1.3 10e3/uL 07/17/2022 1:52 PM [facility] Absolute Eosinophils 0.3 0.0 - 0.7 10e3/uL 07/17/2022 1:52 PM [facility] Absolute Basophils 0.1 0.0 - 0.2 10e3/uL 07/17/2022 1:52 PM [facility] Absolute Immature Granulocytes 0.0 <=0.4 10e3/uL 07/17/2022 1:52 PM CDT [facility] Absolute NRBCs 0.0 10e3/uL 07/17/2022 1:52 PM CDT [facility] Blood BLOOD SPECIMEN / Unknown Venipuncture / Unknown 07/17/2022 1:36 PM CDT 07/17/2022 1:46 PM CDT Verona Mclain TOYA INTERNAL INVESTIGATOR LAB - BLOOD O RDERABLES [facility] [address] [facility] [place], [place] [phone] [place] [address] * (ABNORMAL) Comprehensive metabolic panel (BMP + Alb, Alk Phos, ALT, AST, Total. Bili, TP) (07/17/2022 1:36 PM CDT) Sodium 138 136 - 145 mmol/L 07/17/2022 2:10 PM [facility] Potassium 3.6 3.5 - 5.0 mmol/L 07/17/2022 2:10 PM T [facility] Chloride 97(L) 98 - 107 mmol/L 07/17/2022 2:10 PM T [facility] Carbon Dioxide (CO2) 31 22 - 31 mmol/L 07/17/2022 2:10 PM [facility] Anion Gap 10 5 - 18 mmol/L 07/17/2022 2:10 PM [facility] Urea Nitrogen 44(H) 8 - 28 mg/dL 07/17/2022 2:10 PM CDT [facility] Creatinine 2.32(H) 0.70 - 1.30 mg/dL 07/17/2022 2:10 PM CDT [facility] Calcium 10.2 8.5 - 10.5 mg/dL 07/17/2022 2:10 PM CDT [facility] Glucose 92 70 - 125 mg/dL 07/17/2022 2:10 PM T [facility] Alkaline Phosphatase 90 45 - 120 U/L 07/17/2022 2:10 PM CDT [facility] AST 21 0 - 40 U/L 07/17/2022 2:10 PM CDT [facility] ALT 22 0 - 45 U/L 07/17/2022 2:10 PM CDT [facility] Protein Total 7.7 6.0 - 8.0 g/dL 07/17/2022 2:10 PM CDT [facility] Albumin 3.9 3.5 - 5.0 g/dL 07/17/2022 2:10 PM CDT [facility] Bilirubin Total 0.6 0.0 - 1.0 mg/dL 07/17/2022 2:10 PM CDT [facility] GFR Estimate 28(L) >60 mL/min/1.7 3m2 07/17/2022 2:10 PM CDT [facility] Comment:eGFR calculated usin 2020 CKD-EPI equation. Blood BLOOD SPECIMEN / Unknown Venipuncture / Unknown 07/17/2022 1:36 PM CDT 07/17/2022 1:46 PM CDT Verona Mclain APRN INTERNAL INVESTIGATOR LAB - BLOOD O RDERABLES [facility] [address] [facility] [address] [phone] * Ferritin (07/17/2022 1:36 PM CDT) Ferritin 116 31 - 409 ng/mL 07/17/2022 9:12 PM CDT LABORATORY Blood BLOOD SPECIMEN / Unknown Venipuncture / Unknown 07/17/2022 1:36 PM CDT 07/17/2022 1:46 PM CDT Verona Mclain APRN INTERNAL INVESTIGATOR LAB - BLOOD O RDERABLES [facility] [address] [facility] [place] [address], [facility] [phone] documented in this encounter Visit Diagnoses Diagnosis Other iron deficiency anemia Myelodysplastic syndrome (H) Myelodysplastic syndrome, unspecified documented in this encounter Care Teams Reliability Manager Relationship Specialty Start Date End Date Anthony Mazariegos MD [address] [facility] [address] [place] [address] PCP - General Cardiovascular Disease 01/14/22 3 [place] [address] [place] [address] [place] [address] Hematology 02/07/22 Anthony Leyva MD 9 [place] [address] Gastroenterology 02/07/22 Verona Mclain APRN INTERNAL INVESTIGATOR [address] [place] [address] Assigned Cancer Care Provider 04/05/22 07/25/22 Anthony Leyva MD [address] [place] [address] Assigned Gastroenterology Provider 04/12/22 Shaila Mota APRN INTERNAL INVESTIGATOR [address] [facility], [address] [place] [address] Assigned Heart and Vascular Provider 05/17/22 07/18/22 documented as of this encounter
--- OUTSIDE RECORDS SUMMARY | 2023-03-18 08:54 | XMS_ITS | Encounter Summary ---
Author Name Unknown Organization [place] Address [address] [place] [address] Care Team Providers Care Sports Management Internship Name Role Phone Anthony Mazariegos MD Primary Care Provider [phone] Emmanuel Nobles MD Unavailable [phone] Anthony Leyva MD Unavailable + [phone] Anthony Mazariegos MD Unavailable [phone] Verona Mclain DRESS CAP MAKER PRODUCT CONTROLLER Unavailable [phone] Anthony Leyva MD Unavailable + [phone] Reason for Referral * Diagnostic Imaging Ultrasound (Routine) - Pending Review Specialty Diagnoses / Procedures Referred By Contac t Referred To Contact Diagnoses Cirrhosis of liver without ascites, unspecified hepatic cirrhosis type (H) Procedures US Abdomen Complete w Doppler Complete Anthony Leyva MD [address] [place] [address] Referral ID Status Reason Start Date Expiration Date V isits Requested Visits Authorized [id number] Pending Review 04/03/2022 04/03/2023 1 1 Reason for Visit * Diagnostic Imaging Ultrasound (Routine) - Pending Review Specialty Diagnoses / Procedures Referred By Contac t Referred To Contact Diagnoses Cirrhosis of liver without ascites, unspecified hepatic cirrhosis type (H) Procedures US Abdomen Complete w Doppler Complete Anthony Leyva MD [address] [place] [address] Referral ID Status Reason Start Date Expiration Date V isits Requested Visits Authorized [id number] Pending Review 04/03/2022 04/03/2023 1 1 Encounter Details Date Type Department Care Team (Latest Contact Info) Description 05/12/2022 9:36 AM CDT - 05/12/2022 11:59 PM CDT Hospital Encounter [facility] Imaging [address] [place] [phone] Anthony Leyva MD [address] [place] [address] Cirrhosis of liver without ascites, unspecified hepatic [...] Description 05/11/2023 1:30 PM CDT Virtual Visit [place] [id number] [facility] [address] [place] [address] Evaristo Stack CNP [address] [place] [address] [address] [place], [place] [phone] Nallely Saravia MD [address] [place] [address] documented as of this encounter [...] US ABDOMEN COMPLETE WITH DOPPLER COMPLETE [facility] DATE/TIME: 05/12/2022 10:09 AM INDICATION: Screen [...] US ABDOMEN COMPLETE WITH DOPPLER COMPLETE LOCATION: [facility] DATE/TIME: 05/12/2022 10:09 AM INDICATION: Screen [...] (H) documented in this encounter Care Teams Sports Management Internship Relationship Specialty Start Date End Date Anthony Mazariegos MD [address] [facility] [address] [place] [address] PCP - General Cardiovascular Disease 01/14/22 3 [place] [address] [place] [address] [place] [address] Hematology 02/07/22 Anthony Leyva MD [address] [place] [address] Gastroenterology 02/07/22 Anthony Mazariegos MD [address] [facility] [address] [place] [address] Assigned Heart and Vascular Provider 03/08/22 05/16/22 Verona Mclain APRN [facility] [address] [place] [address] Assigned Cancer Care Provider 04/05/22 07/25/22 Anthony Leyva MD [address] [place] [address] Assigned Gastroenterology Provider 04/12/22 documented as of this encounter
--- OUTSIDE RECORDS SUMMARY | 2023-03-18 08:55 | XMS_ITS | Encounter Summary ---
Author Name Unknown Organization [place] Address [address] [facility] [place] [address] Care Team Providers Care Marine Oil Terminal Superintendent Name Role Phone System, Provider Not In Primary Care Provider Un available Anthony Mazariegos MD Primary Care Provider Rocio Sellers NP Unavailable [phone] Emmanuel Nobles MD Unavailable [phone] Anthony Leyva MD Unavailable Shaila Mota GERIATRIC PERSONAL CARE AIDE INFORMATION ENGINEER Unavailable Anthony Mazariegos MD Unavailable [phone] Verona Mclain GERIATRIC PERSONAL CARE AIDE INFORMATION ENGINEER Unavailable Anthony Leyva MD Unavailable Reason for Visit * Reason Onset Date Comments Pt. Information/instruction 01/08/2022 Vide o capsule endoscopy Encounter Details Date Type Department Care Team ([facility] st Contact Info) Description 01/08/2022 Telephone [facility] Endoscopy [address] [place] [address] Nadine Rodriguez, JAMILA Pt. Information/instruction [...] to limit sodium due to cardiac diagnosis. Destination Specialist then discussed will send golytely prep to pharmacy. Patient verbalized understanding and in agreement with plan. CARE AIDE * Telephone Encounter - Alie Salazar RN [...] time 1200 and facility location [facility]. No sheet pile driver operator/supervisor propellant charge loading needed as this procedure is scheduled without sedation Diabetic? No Reviewed video capsule prep instructions with patient. Patient verbalized understanding and had no questions or concerns at this time. Alie Salazar RN CARE AIDE * Telephone Encounter - Nadine Rodriguez RN - 01/08/2022 10:38 AM CST Attempted to contact patient regarding upcoming video capsule endoscopy procedure on 01.14.2022 forpre assessment questions. No answer. Left message to return call to [phone] #4 Discuss at home rapid antigen COVID test 1-2 days prior to procedure. Arrival time: 1200 Facility location: [facility] Sedation type: none Indication for procedure: iron deficiency anemia; neg egd/colonoscopy Anticoagulants: Eliquis Bowel prep recommendation: Miralax//Dulcolax Prep instructions sent via Letter at time of scheduling. Nadine Rodriguez, RN CARE AIDE documented in this encounter Plan of Treatment Upcoming Encounters Date Type Department Care Team (Late st Contact Info) Description 05/11/2023 1:30 PM CDT Virtual Visit [facility] [address] [facility] [address] [place] [phone] Evaristo Stack, INFORMATION ENGINEER 5 [facility] [address] [place], [place] [phone] Nallely Saravia MD [address] [place], [place] [phone] documented as of this encounter Visit Diagnoses Diagnosis Anemia, iron deficiency- Primary Iron deficiency anemia, unspecified documented in this encounter Care Teams Marine Oil Terminal Superintendent Relationship Specialty Start Date End Date System, Provider Not In PCP - General Clinic 12/19/21 01/13/22 Anthony Mazariegos MD [address] [facility] [address] [place] [address] PCP - General Cardiovascular Disease 01/14/22 3 Rocio Sellers NP [address] [facility], [address] [place] [address] Assigned Heart and Vascular Provider 01/11/22 02/07/22 Emmanuel Nobles MD [address] [facility] [place] [address] Hematology 02/07/22 Anthony Leyva MD [address] [place] [address] Gastroenterology 02/07/22 Shaila Mota APRN INFORMATION ENGINEER [address] [facility], [address] [place] [address] Assigned Heart and Vascular Provider 02/08/22 03/07/22 Anthony Mazariegos MD [address] [place] [address] [address] [place] [address] Assigned Heart and Vascular Provider 03/08/22 05/16/22 Verona Mclain APRN INFORMATION ENGINEER [address] [place] [address] Assigned Cancer Care Provider 04/05/22 07/25/22 Anthony Leyva MD [address] [place] [address] Assigned Gastroenterology Provider 04/12/22 documented as of this encounter
--- OUTSIDE RECORDS SUMMARY | 2023-03-18 08:55 | XMS_ITS | Encounter Summary ---
Author Name Unknown Organization [place] Address [facility] [place] [address] Care Team Providers Care Flask Fitter Name Role Phone Anthony Mazariegos MD Primary Care Provider [phone] Emmanuel Nobles MD Unavailable [phone] Anthony Leyva MD Unavailable [phone] Shaila Mota BEAM DYER OPERATOR CEMENT PAVER Unavailable Anthony Mazariegos MD Unavailable [phone] Verona Mclain BEAM DYER OPERATOR CEMENT PAVER Unavailable Encounter Details Date Type Department Care Team (Late st Contact Info) Description 02/12/2022 Telephone [facility] [address] [facility] [address] [place] [phone] Stephanie Burnham Social History Tobacco Use Types [...] Coronavirus/COVID-19? No / Unsure 04/04/2022 9:58 AM MEDICAL SALES SPECIALIST documented as of this encounter Miscellaneous Notes * Telephone Encounter - Shaila Mota APRN CNP - 02/12/2022 10:41 AM CST Thank you for update. Med list updated. CAL SALES SPECIALIST * Telephone Encounter - Stephanie Burnham RN - 02/12/2022 10:39 AM CST He wants to try taking it once a week. Will be taking it on Thursday. Explained he has to monitor symptoms and wts very closely and to call us if it worsens. He stated understanding and agreement. Stephanie Doherty RN BSN CAL SALES SPECIALIST * Telephone Encounter - Shaila Mota APRN [...] any new or worsening symptoms. Thank you CAL SALES SPECIALIST * Telephone Encounter - Stephanie Burnham RN [...] due to the medication. Recommended he contacta merchandising lead to further assess but stated would mention to the provider as well. HARMEET Doherty RN BSN CAL SALES SPECIALIST * Telephone Encounter - Stephanie Burnham RN - 02/12/2022 8:49 AM CST ----- Message from Shaila Mota APRN CNP sent at 02/12/2022 7:26 AM MEDICAL SALES SPECIALIST ----- Regarding: FW: metolazone Please call patient to see if he has had any increase symptoms of fluid retention since decreasing metolazone to twice a week. Thank you ----- Message ----- From: Shaila Mota APRN CNP Sent: 02/12/2022 12:00 AM MEDICAL SALES SPECIALIST To: Shaila Mota APRN CNP Subject: metolazone Decrease metolazone to twice a week on Tuesdays and Saturdays. Any increased shortness of breath, edema or weight gain? CAL SALES SPECIALIST documented in this encounter Plan of Treatment Upcoming Encounters Date Type Department Care Team (Late st Contact Info) Description 05/11/2023 1:30 PM CDT Virtual Visit [address] [place] [phone] Evaristo Stack CNP [address] [place] [address] [address] [place], [place] [phone] Nallely Saravia MD [address] [place], [place] [phone] documented as of this encounter Visit Diagnoses Diagnosis Chronic heart failure with preserved ejection fraction (H) documented in this encounter Care Teams Flask Fitter Relationship Specialty Start Date End Date Anthony Mazariegos MD [address] [facility] 200 [place] [address] PCP - General Cardiovascular Disease 01/14/22 3 Emmanuel Nobles MD [address] [facility] [place] [address] Hematology 02/07/22 Anthony Leyva MD [address] [place] [address] Gastroenterology 02/07/22 Shaila Mota APRN CEMENT PAVER [address] [facility], [address] [place] [address] Assigned Heart and Vascular Provider 02/08/22 03/07/22 Anthony Mazariegos MD [address] [facility] [address] [place] [address] Assigned Heart and Vascular Provider 03/08/22 05/16/22 Verona Mclain APRN CEMENT PAVER [address] [place], [place] [phone] Assigned Cancer Care Provider 04/05/22 07/25/22 documented as of this encounter
--- OUTSIDE RECORDS SUMMARY | 2023-03-18 08:55 | XMS_ITS | Encounter Summary ---
Author Name Unknown Organization [place] Address [address] [place] [place] [address] Care Team Providers Care Cleaner Laboratory Equipment Name Role Phone Anthony Mazariegos MD Primary Care Provider [phone] Emmanuel Nobles MD Unavailable [phone] Anthony Leyva MD Unavailable [phone] Anthony Mazariegos MD Unavailable [phone] Encounter Details Date Type Department Care Team [...] Coronavirus/COVID-19? No / Unsure 04/02/2022 9:40 AM TIMBER SKIDDER documented as of this encounter Plan of Treatment Upcoming Encounters Date Type Department Care Team (Late st Contact Info) Description 05/11/2023 1:30 PM CDT Virtual Visit [place] [id number] [facility] [address] [place] [address] Evaristo Stack, LANA [address] [place] [address] [address] [place] [address] Nallely Saravia MD [address] [place] [address] documented as of this encounter Visit Diagnoses Not on filedocumented in this encounter Care Teams Cleaner Laboratory Equipment Relationship Specialty Start Date End Date Anthony Mazariegos MD [address] [facility] 200 [place] [address] PCP - General Cardiovascular Disease 01/14/22 3 [place] [address] [place] [address] [place] [address] Hematology 02/07/22 Anthony Leyva MD [address] [place] [address] Gastroenterology 02/07/22 Anthony Mazariegos MD [address] [facility] 200 [place] [address] Assigned Heart and Vascular Provider 03/08/22 05/16/22 documented as of this encounter
--- OUTSIDE RECORDS SUMMARY | 2023-03-18 08:55 | XMS_ITS | Encounter Summary ---
Author Name Unknown Organization [place] Address Critical access hospital0 [facility] [place] [address] Care Team Providers Care District Service Manager Name Role Phone Anthony Mazariegos MD Primary Care Provider Emmanuel Nobles MD Unavailable [phone] Anthony Leyva MD Unavailable [phone] Anthony Mazariegos MD Unavailable Verona Mclain BELT SANDER STONE MANAGER WOUND CARE Unavailable Anthony Leyva MD Unavailable [phone] Shaila Mota BELT SANDER STONE MANAGER WOUND CARE Unavailable Evaristo Stack MANAGER WOUND CARE Unavailable Anthony Mazariegos MD Unavailable Shaila Mota APRN MANAGER WOUND CARE Unavailable Emil Cope MD Primary Care Provider Anthony Mazariegos MD Unavailable [phone] Reason for Visit * Reason Comments Medication Refill Encounter Details Date Type Department Care Team (Late st Contact Info) Description 03/08/2022 Refill [facility] [address] [facility] [address] [place] [phone] Anthony Mazariegos MD 1600 [facility] 200 [place] [address] Medication Refill Social History Tobacco Use Types [...] Coronavirus/COVID-19? No / Unsure 03/07/2022 12:03 PM RELAY CHECKER documented as of this encounter Plan of Treatment Upcoming Encounters Date Type Department Care Team (Late st Contact Info) Description 05/11/2023 1:30 PM CDT Virtual Visit [facility] [address] [facility] [place] [address] [place] [phone] Evaristo Stack, LANA 1875 [facility] 130 [place] [address] Nallely Saravia MD [address] [place], [place] [phone] documented as of this encounter Visit Diagnoses Diagnosis Chronic heart failure with preserved ejection fraction (H) documented in this encounter Care Teams District Service Manager Relationship Specialty Start Date End Date Anthony Mazariegos MD 1600 [facility] [address] [place] [address] PCP - General Cardiovascular Disease 01/14/22 3 Emil Cope MD [facility] [address] [place] [address] PCP - General Emergency Medicine 09/30/22 Emmanuel Nobles MD [address] [place] [address] Hematology 02/07/22 Anthony Leyva MD [address] [place] [address] Gastroenterology 02/07/22 Anthony Mazariegos MD [address] [facility] 200 [place] [address] Assigned Heart and Vascular Provider 03/08/22 05/16/22 Verona Mclain APRN MANAGER WOUND CARE [address] [place] [address] Assigned Cancer Care Provider 04/05/22 07/25/22 Anthony Leyva MD [address] [place] [address] Assigned Gastroenterology Provider 04/12/22 Shaila Mota APRN MANAGER WOUND CARE [address] [place] [address] 200 [place] [address] Assigned Heart and Vascular Provider 05/17/22 07/18/22 Evaristo Stack, MANAGER WOUND CARE [facility] [address] [place] [address] Assigned Cancer Care Provider 07/26/22 Anthony Mazariegos MD [address] [facility] 200 [place] [address] Assigned Heart and Vascular Provider 07/19/22 09/19/22 Shaila Mota APRN MANAGER WOUND CARE [address] [place] [address] 200 [place] [address] Assigned Heart and Vascular Provider 09/20/22 01/16/23 Anthony Mazariegos MD [address] [facility] [address] [place] [address] Assigned Heart and Vascular Provider 01/17/23 documented as of this encounter
--- OUTSIDE RECORDS SUMMARY | 2023-03-18 08:55 | XMS_ITS | Encounter Summary ---
Author Name Unknown Organization [place] Address [facility] [place] [address] Care Team Providers Care 3D Technologist Name Role Phone Mateus Bergman MD Primary Care Provider Unava ilable System, Provider Not In Primary Care Provider Un available Anthony Mazariegos MD Primary Care Provider [phone] Rocio Sellers NP Unavailable [phone] Emmanuel Nobles MD Unavailable [phone] Anthony Leyva MD Unavailable Shaila Mota APRN DEVELOPER TRADING SYSTEMS Unavailable Anthony Mazariegos MD Unavailable [phone] Verona Mclain BOARDINGHOUSE KEEPER DEVELOPER TRADING SYSTEMS Unavailable [phone] Anthony Leyva MD Unavailable [phone] Shaila Mota BOARDINGHOUSE KEEPER DEVELOPER TRADING SYSTEMS Unavailable Evaristo Stack DEVELOPER TRADING SYSTEMS Unavailable [phone] Anthony Mazariegos MD Unavailable [phone] Shaila Mota APRN DEVELOPER TRADING SYSTEMS Unavailable Emil Cope MD Primary Care Provider Anthony Mazariegos MD Unavailable [phone] Reason for Visit * Reason Comments Call Center Generated Orders Encounter Details Date Type Department Care Team (Late st Contact Info) Description 07/20/2015 Orders Only [facility] [address] [address] Arcadio Robles, DO [address] [place] [phone] Social History Tobacco Use Types Packs/Day Years [...] Description 05/11/2023 1:30 PM CDT Virtual Visit [address] [place] [phone] Evaristo Stack, LANA [address] [place] [address] [address] [place] [address] Nallely Saravia MD [address] [place], [place] [phone] documented as of this encounter Visit Diagnoses Not on filedocumented in this encounter Care Teams 3D Technologist Relationship Specialty Start Date End Date Mateus Bergman MD PCP - General 10/24/10 12/18/21 System, Provider Not In PCP - General Clinic 12/19/21 01/13/22 Anthony Mazariegos MD 1600 [facility] [facility] 200 [place] [address] PCP - General Cardiovascular Disease 01/14/22 3 Emil Cope MD [facility] [address] [place] [address] PCP - General Emergency Medicine 09/30/22 Rocio Sellers NP [address] [facility], [address] [place] [address] Assigned Heart and Vascular Provider 01/11/22 02/07/22 [place] [address] [place] [address] [place] [address] Hematology 02/07/22 Anthony Leyva MD [address] [place] [address] Gastroenterology 02/07/22 Shaila Mota APRN DEVELOPER TRADING SYSTEMS [address] [facility] 200 [place] [address] Assigned Heart and Vascular Provider 02/08/22 03/07/22 Anthony Mazariegos MD [address] [facility] [address] [place] [id number] Assigned Heart and Vascular Provider 03/08/22 05/16/22 Verona Mclain APRN DEVELOPER TRADING SYSTEMS [address] [place], [place] [address] Assigned Cancer Care Provider 04/05/22 07/25/22 Anthony Leyva MD [address] [place] [address] Assigned Gastroenterology Provider 04/12/22 Shaila Mota APRN DEVELOPER TRADING SYSTEMS [address] [facility], [address] [place] [address] Assigned Heart and Vascular Provider 05/17/22 07/18/22 Evaristo Stack, LANA [facility] Julia Cortez [address] [place] [address] Assigned Cancer Care Provider 07/26/22 Anthony Mazariegos MD [address] [place] [address] [address] [place] [address] Assigned Heart and Vascular Provider 07/19/22 09/19/22 Shaila Mota APRN DEVELOPER TRADING SYSTEMS [address] [facility], [address] [place] [address] Assigned Heart and Vascular Provider 09/20/22 01/16/23 Anthony Mazariegos MD [address] [facility] 200 [place] [address] Assigned Heart and Vascular Provider 01/17/23 documented as of this encounter
[2023-03-18] MEDS: KETOROLAC OPHTH 0.5% 1 DROP EYE-LEFT ×3 (09:00→09:10)
[2023-03-18] MEDS: TETRACAINE 0.5% OPHTH 1 DROP EYE-LEFT ×2 (09:00→09:05)
[2023-03-18 09:06] VITALS: BMI 34.4
--- NOTE | 2023-03-18 09:12 | SUR.PREOP ---
noted red area on inside of left eye towards the left side alerted Dr. Delgadillo
[2023-03-18 09:26] VITALS: BP 148/87; PULSE 84; RESP 20; TEMP 37.2; O2SAT 93
[2023-03-18] MEDS: SODIUM CHLORIDE 0.9 % (FLUSH) 10 ML SYRINGE IVF (09:29)
--- NOTE | 2023-03-18 09:31 | SUR.PREOP ---
The eye drops brought by the patient (Ketorolac and Prednisolone) are examined and I have determined they are labeled by the patient's pharmacy for this patient as prescribed by the surgeon. The bottles are intact, recently obtained and appear to be correct. kelly
--- NOTE | 2023-03-18 09:35 | SUR.PREOP ---
Pt noted to have expiratory wheezing bilateral lungs was SOB on arrival although was wearing a mask when he came in temp 99.0 denies and flu symptoms has hx of Congestive Heart failure Dr. Chappell MDA aware
[2023-03-18] MEDS: TETRACAINE 0.5% OPHTH 2 DROP EYE-LEFT (10:15)
--- NOTE | 2023-03-18 10:16 | W.ANESCHARGE ---
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
[2023-03-18] MEDS: BALANCED SALT IRRIG SOLN 15 ML EYE-LEFT (10:20)
--- NOTE | 2023-03-18 10:52 | W.ANESCHARGE ---
Anesthesia Charges Start Date/Time Anesthesia Start Date: 03/18/23 Anesthesia Start Time: 10:13 Stop Date/Time Anesthesia Stop Date: 03/18/23 Anesthesia Stop Time: 11:02 Summary Extremes of Age - Over 70 or under 1: MDA
[2023-03-18 10:58] VITALS: BP 129/78; PULSE 71; RESP 16; TEMP 36.5; O2SAT 93
[2023-03-18 11:42] VITALS: BP 125/80; PULSE 71; RESP 16; TEMP 36.8; O2SAT 96
--- NOTE | 2023-03-18 12:17 | W.PM.OPTPROC ---
Procedure Note Date of procedure: 03/18/23 Will [facility] bill your pro fee for this procedure?: Yes Procedure Description: SURGEON: Belkys Delgadillo MD PREOPERATIVE DIAGNOSIS: 1. Mature cataract, left eye. 2. Miosis, left eye. POSTOPERATIVE DIAGNOSIS: 1. Mature cataract, left eye. 2. Miosis, left eye. NAME OF OPERATION: Phacoemulsification of cataract with posterior chamber intraocular lens implantation in the left eye with pupilloplasty. ANESTHESIA: Topical. ESTIMATED BLOOD LOSS: Less than 2 cc. COMPLICATIONS: None. PATHOLOGY SPECIMEN: None. INDICATIONS: See consult note for details. The risks, benefits and alternatives of the procedure were explained to the patient, who elected to proceed and signed informed consent to do so. PROCEDURE: The patient was brought to the pre-holding area where the left eye was identified as the operative eye. I placed my initials above this eye. The patient received eye drops consisting of 0.5% tetracaine, 1% tropicamide, 10% phenylephrine, and 0.5% ketorolac. The patient was then brought to the operating room where the left eye was again identified as the operative eye. The eye was prepped with Betadine and draped in the usual sterile ophthalmic fashion. A #15 super-sharp blade was used to create a paracentesis site. 1% non-preserved intracameral lidocaine was injected into the anterior chamber. Endocoat was injected into the anterior chamber. A 2.4 mm keratome was used to create a three-plane self-sealing incision 1 mm anterior to the temporal limbus. A #15 super-sharp blade was used to create four additional paracentesis sites. Four Grieshaber iris hooks were placed in order to stretch the iris. A cystotome was used to create an anterior capsular leaflet. The Utrata forceps were used to extend this to form a continuous curvilinear capsulorrhexis. Hydrodissection was performed. The cataract was removed with phacoemulsification using the garlgy-yuv-pytlric technique. The irrigation and aspiration tip was used to remove the remaining cortex. Healon was injected into the capsular bag. An SEAN ZCB00 intraocular lens of 20.5 diopters was injected into the capsular bag. The four Grieshaber iris hooks were removed. The irrigation and aspiration tip was used to remove the remaining viscoelastic. Miostat was injected into the anterior chamber. Balanced salt solution on a cannula was used to hydrate the wound, and the wound was found to be watertight. The pupil was noted to be round. DISPOSITION: The patient was taken to the recovery room and discharged to home in stable condition. The patient was instructed to call me or go to the emergency department with any sudden change, including dramatic loss of vision, severe pain in the eye or eyebrow region, nausea, or vomiting. The patient will follow up in the clinic tomorrow morning.
== END 2023-03-18 12:06 | disposition home or self-care (01) ==
LOC: OR 08:47
PROVIDERS: PCP Internal Medicine; Visit Provider Ophthalmology
PROC: (CPT 66982; principal; 2023-03-18 09:00)
DX: H25.89 Other age-related cataract (principal); H57.03 Miosis
CPT/HCPCS: 66982; 00142; 99100; A9270; J2250; J2405; J3010; V2632

== ENCOUNTER 2023-04-01 08:39 | Day surgery (SDC) | payer MEDICARE, BC, SELFPAY ==
--- OUTSIDE RECORDS SUMMARY | 2023-04-01 08:41 | XMS_ITS | Referral Summary ---
Author Name Unknown Organization [place] Address [address] [facility] [place] [address] Care Team Providers Care Personal Development Coach Name Role Phone Emmanuel Nobles MD Unavailable [phone] Anthony Leyva MD Unavailable [phone] Anthony Leyva MD Unavailable [phone] Evaristo Stack CNP Unavailable Emil Cope MD Primary Care Provider Anthony Mazariegos MD Unavailable [phone] Encounters Date Type Department Care Team Description 02/17/2023 Refill M [address] [place] [address] Anthony Mazariegos MD Medication Refill 02/04/[address] [facility] [address] [place] [phone] Leona Hargrove, RN Direct Oral Anticoagulant 01/15/2023 Refill M [address] [place] [address] Anthnoy Mazariegos MD Medication Refill 01/14/2023 Orders Only M [facility] [address] [facility] [address] [place] [address] Estela Adam Acute on chronic diastolic heart failure (H) (Primary Dx) 01/13/2023 Travel 01/13/2023 2:20 PM AUTOMATION ENGINEERING TECHNICIAN Office Visit [facility] [address] [facility] [address] [place] [phone] Shaila Mota APRN CNP Johnson, Thomas H, [...] Dispensed Refills Start Date End Date Status Glucosamine-Chondroit in (COSAMIN DS PO) Take by mouth 2 [...] daily 0 Active bumetanide (BUMEX) 2 MG tabletIndications:Chr onic heart failure with preserved ejection fraction (H) Take 1 tablet (2 mg) by mouth 2 times daily (Water pill for heart) 180 tablet 3 05/12/2022 Active empagliflozin (JARDIANCE) 10 MG TABS tabletIndications:Chr onic heart failure with preserved ejection fraction (H) Take 1 tablet (10 mg) by mouth daily (For heart muscle) 90 tablet 3 05/12/2022 Active metolazone (ZAROXOLYN) 2.5 MG tabletIndications:Chr onic heart failure with preserved ejection fraction (H) Take 1 tablet twice weekly 24 tablet 4 09/15/2022 Active potassium chloride ER (KLOR-CON M) 10 MEQ CR tabletIndications:Hyp okalemia TAKE 4 TABLETS (40 MEQ) BY MOUTH DAILY 120 tablet 2 01/16/2023 Active apixaban ANTICOAGULANT (ELIQUIS) 2.5 MG tabletIndications:Per manent atrial fibrillation (H) Take 1 tablet (2.5 mg) by mouth 2 times daily 60 tablet 2 02/20/2023 Active Active Problems Problem Noted Date Diagnosed [...] Comments Blood Pressure 132/60 01/13/2023 2:03 PM AUTOMATION ENGINEERING TECHNICIAN Pulse 83 01/13/2023 2:03 PM AUTOMATION ENGINEERING TECHNICIAN Temperature 36.8 ??C (98.3 ??F) 07/17/2022 2:06 PM CD T Respiratory Rate 16 01/13/2023 2:03 PM AUTOMATION ENGINEERING TECHNICIAN Oxygen Saturation 96% 01/13/2023 2:03 PM AUTOMATION ENGINEERING TECHNICIAN Inhaled Oxygen Concentration - - Weight 110.5 kg (243 lb 8 oz) 01/13/2023 2:03 PM AUTOMATION ENGINEERING TECHNICIAN Height 182.9 cm (6') 01/13/2023 2:03 PM AUTOMATION ENGINEERING TECHNICIAN Body Mass Index 33.02 01/13/2023 2:03 PM AUTOMATION ENGINEERING TECHNICIAN Plan of Treatment Upcoming Encounters Date Type Department Care Team (Late st Contact Info) Description 05/11/2023 1:30 PM CDT Virtual Visit [address] [place] [phone] Evaristo Stack, LANA [address] [place], [place] [phone] Nallely Saravia MD [address] [place], [place] [phone] Medical Devices Implanted Type Area Master Of Ceremonies Device Identifier Shelf Expiration Date Model / Serial / Lot Imp Insert Tibial Howm Tri 6x09mm [id number] Implanted:Qty: 1 on 03/29/2013 by Eric Pepper MD at [facility] Left: Knee Yassets 01/29/2018 [id number] / / [id number] Procedures Procedure Name Priority Date/Time Associated Diagnosis Comments N TERMINAL PRO BNP OUTPATIENT Routine 01/13/2023 2:51 PM AUTOMATION ENGINEERING TECHNICIAN Acute on chronic diastolic heart failure (H) Stage 3 chronic kidney disease, unspecified whether stage 3a or 3b CKD (H) Essential hypertension Iron malabsorption Permanent atrial fibrillation (H) VIANNEY (obstructive sleep apnea) Heart failure with preserved ejection fraction, unspecified HF chronicity (H) Chronic heart failure with preserved ejection fraction (H) BASIC METABOLIC PANEL Routine 01/13/2023 2:51 PM AUTOMATION ENGINEERING TECHNICIAN Acute on chronic diastolic heart failure (H) [...] terminal pro BNP outpatient (01/13/2023 2:51 PM AUTOMATION ENGINEERING TECHNICIAN) [facility] N Terminal Pro BNP Outpatient 2,066(H) 0 - 1,800 pg/mL 01/13/2023 4:53 PM AUTOMATION ENGINEERING TECHNICIAN [facility] Comment: Reference range shown and results [...] Unknown Venipuncture / Unknown 01/13/2023 2:51 PM AUTOMATION ENGINEERING TECHNICIAN 01/13/2023 4:22 PM AUTOMATION ENGINEERING TECHNICIAN Anthony Mazariegos MD LAB - BLOOD ORDERABL ES [facility] [address] [place] [address], [facility] [phone] * (ABNORMAL) Basic metabolic panel (01/13/2023 2:51 PM AUTOMATION ENGINEERING TECHNICIAN) Sodium 139 135 - 145 mmol/L 01/13/2023 4:53 PM [facility] Comment:Reference intervals for this test were updated on 11/25/2022 to more accurately reflect our healthy population. There may be differences in the flagging of prior results with similar values performed with this method. Interpretation of those prior results can be made in the context of the updated reference intervals. Potassium 3.7 3.4 - 5.3 mmol/L 01/13/2023 4:53 PM [facility] Chloride 94(L) 98 - 107 mmol/L 01/13/2023 4:53 PM [facility] Carbon Dioxide (CO2) 32(H) 22 - 29 mmol/L 01/13/2023 4:53 PM [facility] Anion Gap 13 7 - 15 mmol/L 01/13/2023 4:53 PM [facility] Urea Nitrogen 39.2(H) 8.0 - 23.0 mg/dL 01/13/2023 4:53 PM [facility] Creatinine 2.25(H) 0.67 - 1.17 mg/dL 01/13/2023 4:53 PM [facility] GFR Estimate 29(L) >60 mL/min/1. 73m2 01/13/2023 4:53 PM [facility] Calcium 11.2(H) 8.8 - 10.2 mg/dL 01/13/2023 4:53 PM [facility] Glucose 94 70 - 99 mg/dL 01/13/2023 4:53 PM [facility] Blood STRUCTURE OF LEFT UPPER LIMB / Unknown Venipuncture / Unknown 01/13/2023 2:51 PM AUTOMATION ENGINEERING TECHNICIAN 01/13/2023 4:22 PM [facility] Anthony Mazariegos MD LAB - BLOOD ORDERABL ES [facility] [address] [place] [address], [facility] [phone] from Last 3 Months Advance Directives For more information, please contact: [phone] Latest Code Status on File Code Status Date Activated Date Inactivated Comments Full Code 12/12/2021 1:28 PM 12/20/2021 3:31 PM All basic and advanced life-sustaining interventions are performed as appropriate Question Answer Comments Code status determined by: Discussion with patient/ legal decision maker Code Status History Code Status Date Activated Date Inactivated Comments Full Code 03/29/2013 6:39 PM 03/31/2013 5:03 PM Care Teams Personal Development Coach Relationship Specialty Start Date End Date Emil Cope MD [facility] [address] [place] [address] PCP - General Emergency Medicine 09/30/22 Emmanuel Nobles MD [address] [place] [address] [place] [address] Hematology 02/07/22 Anthony Leyva MD [address] [place] [address] [phone] Gastroenterology 02/07/22 Anthony Leyva MD [address] [place] [id number] Assigned Gastroenterology Provider 04/12/22 Evaristo Stack CNP [address] [place], [place] [phone] Assigned Cancer Care Provider 07/26/22 Anthony Mazariegos MD [address] [facility] [address] [place], [place] [phone] Assigned Heart and Vascular Provider 01/17/23
--- OUTSIDE RECORDS SUMMARY | 2023-04-01 08:41 | XMS_ITS | Encounter Summary ---
Author Name Unknown Organization [place] Address [address] [place] [address] Care Team Providers Care Tub Tender Name Role Phone Emmanuel Nobles MD Unavailable [phone] Anthony Leyva MD Unavailable [phone] Anthony Leyva MD Unavailable Evaristo Stack CNP Unavailable [phone] Emil Cope MD Primary Care Provider Anthony Mazariegos MD Unavailable [phone] Reason for Visit * Reason Onset Date Comments Direct Oral Anticoagulant 02/04/2023 Encounter Details Date Type Department Care Team (Late st Contact Info) Description 02/04/2023 Telephone [facility] [address] [place] [phone] Leona Hargrove RN Direct Oral Anticoagulant [...] Vijaya Akins RN - 02/19/2023 2:18 PM ALL PURPOSE CLERK ANTICOAGULATION [employer] Spoke with [facility] to review [...] has been contacted by the pharmacy to machine pecan picker the Rx of 5 mg Eliquis tablets. Called patient's pharmacy and advised of the dose change. The 5 mg dose of Eliquis has been cancelled. Vijaya Akins RN [facility] PURPOSE CLERK * Telephone Encounter - Yamileth Cruz RPH - 02/11/2023 9:48 AM CST Images from the original note were not included. Anthony Mazariegos MD You2 days ago TJ Yes, please reduce the dose. Thank you, Anthony PURPOSE CLERK * Telephone Encounter - Leona Hargrove RN - 02/04/2023 12:33 PM CST ANTICOAGULATION DIRECT ORAL ANTICOAGULANT MONITORING SUBJECTIVE The [facility] is evaluating [facility] Abdi Huber's [...] with package insert dosing) Plan made with [facility] Pharmacist Yamileth Hargrove, RN Anticoagulation Clinic PURPOSE CLERK documented in this encounter Plan of Treatment Upcoming Encounters Date Type Department Care Team (Late st Contact Info) Description 05/11/2023 1:30 PM CDT Virtual Visit [facility] [address] [facility] [address] [place] [phone] Evaristo Stack, LANA [address] [facility] [address] [place], [place] [phone] Nallely Saravia MD [address] [place], [place] [phone] documented as of this encounter Visit Diagnoses Diagnosis Permanent atrial fibrillation (H)- Primary Atrial fibrillation documented in this encounter Care Teams Tub Tender Relationship Specialty Start Date End Date Emil Cope MD [facility] [address] [place] [address] PCP - General Emergency Medicine 09/30/22 Emmanuel Nobles MD [address] [place] [address] [place], [place] [phone] Hematology 02/07/22 Anthony Leyva MD [address] [place] [address] Gastroenterology 02/07/22 Anthony Leyva MD [address] [place] [address] Assigned Gastroenterology Provider 04/12/22 Evaristo Stack CNP [address] [facility] [address] [place], [place] [phone] Assigned Cancer Care Provider 07/26/22 Anthony Mazariegos MD [address] [facility] [address] [place], [place] [phone] Assigned Heart and Vascular Provider 01/17/23 documented as of this encounter
--- OUTSIDE RECORDS SUMMARY | 2023-04-01 08:41 | XMS_ITS | Encounter Summary ---
Author Name Unknown Organization [place] Address [address] [facility] [place] [address] Care Team Providers Care Java Web Services Developer Name Role Phone Emmanuel Nobles MD Unavailable [phone] Anthony Leyva MD Unavailable [phone] Anthony Leyva MD Unavailable Evaristo Stack CNP Unavailable [phone] Emil Cope MD Primary Care Provider Anthony Mazariegos MD Unavailable [phone] Reason for Visit * Reason Comments Medication Refill Encounter Details Date Type Department Care Team (Late st Contact Info) Description 02/17/2023 Refill [place] [id number] [facility] [address] [place] [address] Anthony Mazariegos MD [address] [facility] [address] [place] [address] Medication Refill Social History Tobacco Use Types [...] [facility] [address] [facility] [employer] [address] [place] [phone] Evaristo Stack CNP [address] [place] [address] Nallely Saravia MD [address] [place] [address] documented as of this encounter Visit Diagnoses Not on filedocumented in this encounter Care Teams Java Web Services Developer Relationship Specialty Start Date End Date Emil Cope MD [facility] [address] [place] [address] PCP - General Emergency Medicine 09/30/22 Emmanuel Nobles MD [facility] [place] [address] Hematology 02/07/22 Anthony Leyva MD [address] [place] [address] Gastroenterology 02/07/22 Anthony Leyva MD [address] [place] [address] Assigned Gastroenterology Provider 04/12/22 Evaristo Stack CNP [address] [place] [address] Assigned Cancer Care Provider 07/26/22 Anthony Mazariegos MD [address] [place] [address] [address] [place] [address] Assigned Heart and Vascular Provider 01/17/23 documented as of this encounter
--- OUTSIDE RECORDS SUMMARY | 2023-04-01 08:41 | XMS_ITS | Encounter Summary ---
Author Name Unknown Organization [place] Address [address] [facility] [place] [address] Care Team Providers Care Cruise Director Name Role Phone HenryciraEmmanuel MD Unavailable [phone] Anthony Leyva MD Unavailable [phone] Anthony Leyva MD Unavailable [phone] Evaristo Stack CHILD CARE TEAM LEAD Unavailable Shaila Mota APRN CHILD CARE TEAM LEAD Unavailable Emil Cope MD Primary Care Provider Reason for Visit * Reason Comments Medication Refill Encounter Details Date Type Department Care Team (Late st Contact Info) Description 01/15/2023 Refill [place] [phone] [facility] [address] [place] [address] Anthony Mazariegos MD [address] [facility] [address] [place], [place] [phone] Medication Refill Social History Tobacco Use Types [...] CDT Virtual Visit [facility] [address] [place] [phone] Evaristo Stack CNP [address] [place] [phone] Nallely Saravia MD [address] [place], [place] [phone] documented as of this encounter Visit Diagnoses Diagnosis Hypokalemia Hypopotassemia documented in this encounter Care Teams Cruise Director Relationship Specialty Start Date End Date Emil Cope MD [facility] [address] [place] [address] PCP - General Emergency Medicine 09/30/22 Emmanuel Nobles MD [facility] [place] [address] Hematology 02/07/22 Anthony Leyva MD [address] [place] [address] Gastroenterology 02/07/22 Anthony Leyva MD [address] [place] [address] Assigned Gastroenterology Provider 04/12/22 Evaristo Stack CNP [address] [place] [address] Assigned Cancer Care Provider 07/26/22 Shaila Mota, TOYA CHILD CARE TEAM LEAD [address] [facility] [place] [address] Assigned Heart and Vascular Provider 09/20/22 01/16/23 documented as of this encounter
--- OUTSIDE RECORDS SUMMARY | 2023-04-01 08:41 | XMS_ITS | Clinical Summary ---
Author Name Unknown Organization [place] Address [address] [place] [address] Care Team Providers Care Can Sorter Name Role Phone Emmanuel Nobles MD Unavailable [phone] Anthony Leyva MD Unavailable [phone] Anthony Leyva MD Unavailable [phone] Evaristo Stack CNP Unavailable Emil Cope MD Primary Care Provider Anthony Mazariegos MD Unavailable Allergies Active Allergy Reactions Criticality Noted Date [...] Type Department Care Team Description 02/17/2023 Refill [facility] [address] [facility] [address] [place] [address] Anthony Mazariegos MD Medication Refill 02/04/2023 Telephone [facility] [address] [place] [phone] Leona Hargrove, RN Direct Oral Anticoagulant 01/15/2023 Refill [place] [address] [facility] [address] [place] [address] Anthony Mazariegos MD Medication Refill 01/14/2023 Orders Only [facility] Heart [address] [place] [phone] Estela Adam Acute on chronic diastolic heart failure (H) (Primary Dx) 01/13/2023 2:20 PM ART THERAPIST Office Visit [address] [place] [address] Shaila Mota, DIRECTOR OF COLLECTIONS AND ARCHIVESAnthony Rodriguez CNP, MD Acute on chronic diastolic heart failure [...] Comments Blood Pressure 132/60 01/13/2023 2:03 PM ART THERAPIST Pulse 83 01/13/2023 2:03 PM ART THERAPIST Temperature 36.8 ??C (98.3 ??F) 07/17/2022 2:06 PM CD T Respiratory Rate 16 01/13/2023 2:03 PM ART THERAPIST Oxygen Saturation 96% 01/13/2023 2:03 PM ART THERAPIST Inhaled Oxygen Concentration - - Weight 110.5 kg (243 lb 8 oz) 01/13/2023 2:03 PM ART THERAPIST Height 182.9 cm (6') 01/13/2023 2:03 PM ART THERAPIST Body Mass Index 33.02 01/13/2023 2:03 PM ART THERAPIST Plan of Treatment Upcoming Encounters Date Type Department Care Team (Late st Contact Info) Description 05/11/2023 1:30 PM CDT Virtual Visit [facility] [address] [facility] [address] [place] [address] Evaristo Stack, LANA [address] [facility] [address] [place], [place] [phone] Nallely Saravia MD [address] [place] [address] Health Maintenance Due Date Last [...] 08/18/2022, Additional history exists ALT 07/18/2023 07/17/2022, 3 03/2022, 01/31/2022, Additional history exists CBC 07/18/2023 07/17/2022, 0 07/2022, 01/31/2022, Additional history exists FALL RISK ASSESSMENT 07/18/2023 07/17/2022 HEMOGLOBIN 07/18/2023 07/17/2022, 010 07/2022, 01/31/2022, Additional history exists DTAP/TDAP/TD IMMUNIZATION [...] patient's age to complete this topic sDNA (Roxie) Discontinued Medical Devices Implanted Type Area Insurance Application Investigator Device Identifier Shelf Expiration Date Model / Serial / Lot Imp Insert Tibial Howm Tri 6x09mm [id number] Implanted:Qty: 1 on 03/29/2013 by Eric Pepper MD at [facility] Left: Knee [employer] 01/29/2018 [id number] / / [id number] Procedures Procedure Name Priority Date/Time Associated Diagnosis Comments N TERMINAL PRO BNP OUTPATIENT Routine 01/13/2023 2:51 PM ART THERAPIST Acute on chronic diastolic heart failure (H) Stage 3 chronic kidney disease, unspecified whether stage 3a or 3b CKD (H) Essential hypertension Iron malabsorption Permanent atrial fibrillation (H) VIANNEY (obstructive sleep apnea) Heart failure with preserved ejection fraction, unspecified HF chronicity (H) Chronic heart failure with preserved ejection fraction (H) BASIC METABOLIC PANEL Routine 01/13/2023 2:51 PM ART THERAPIST Acute on chronic diastolic heart failure (H) [...] terminal pro BNP outpatient (01/13/2023 2:51 PM ART THERAPIST) Pathologist [facility] N Terminal Pro BNP Outpatient 2,066(H) 0 - 1,800 pg/mL 01/13/2023 4:[address] [facility] Comment: Reference range shown [...] Unknown Venipuncture / Unknown 01/13/2023 2:51 PM ART THERAPIST 01/13/2023 4:22 PM ART THERAPIST Anthony Mazariegos MD LAB - BLOOD ORDERABL ES [facility] [address] [facility] [place] [address], [facility] [phone] * (ABNORMAL) Basic metabolic panel (01/13/2023 2:51 PM ART THERAPIST) [facility] Sodium 139 135 - 145 mmol/L 01/13/2023 4:[address] [facility] Comment:Reference intervals for this test were updated on 11/25/2022 to more accurately reflect our healthy population. There may be differences in the flagging of prior results with similar values performed with this method. Interpretation of those prior results can be made in the context of the updated reference intervals. Potassium 3.7 3.4 - 5.3 mmol/L 01/13/2023 4:[address] [facility] Chloride 94(L) 98 - 107 mmol/L 01/13/2023 4:[address] [facility] Carbon Dioxide (CO2) 32(H) 22 - 29 mmol/L 01/13/2023 4:[address] [facility] Anion Gap 13 7 - 15 mmol/L 01/13/2023 4:[address] [facility] Urea Nitrogen 39.2(H) 8.0 - 23.0 mg/dL 01/13/2023 4:[address] [facility] Creatinine 2.25(H) 0.67 - 1.17 mg/dL 01/13/2023 4:[address] [facility] GFR Estimate 29(L) >60 mL/min/1. 73m2 01/13/2023 4:[address] [facility] Calcium 11.2(H) 8.8 - 10.2 mg/dL 01/13/2023 4:[address] [facility] Glucose 94 70 - 99 mg/dL 01/13/2023 4:[address] [facility] Blood STRUCTURE OF LEFT UPPER LIMB / Unknown Venipuncture / Unknown 01/13/2023 2:51 PM ART THERAPIST 01/13/2023 4:22 PM ART THERAPIST Anthony Mazariegos MD LAB - BLOOD ORDERABL ES [facility] [address] [facility] [place] [address], [facility] [phone] from Last 3 Months Advance Directives For more information, please contact: [phone] Latest Code Status on File Code Status Date Activated Date Inactivated Comments Full Code 12/12/2021 1:28 PM 12/20/2021 3:31 PM All basic and advanced life-sustaining interventions are performed as appropriate Question Answer Comments Code status determined by: Discussion with patient/ legal decision maker Code Status History Code Status Date Activated Date Inactivated Comments Full Code 03/29/2013 6:39 PM 03/31/2013 5:03 PM Care Teams Can Sorter Relationship Specialty Start Date End Date Emil Cope MD [facility] [address] [place] [address] PCP - General Emergency Medicine 09/30/22 Emmanuel Nobles MD [address] [place] [address] Hematology 02/07/22 Anthony Leyva MD [address] [place] [address] Gastroenterology 02/07/22 Anthony Leyva MD [address] [place] [address] Assigned Gastroenterology Provider 04/12/22 Evaristo Stack CNP [address] [facility] [address] [place] [address] Assigned Cancer Care Provider 07/26/22 Anthony Mazariegos MD [address] [facility] 200 [place] [address] Assigned Heart and Vascular Provider 01/17/23
--- OUTSIDE RECORDS SUMMARY | 2023-04-01 08:42 | XMS_ITS | Encounter Summary ---
Author Name Unknown Organization [place] Address [facility] [place] [address] Care Team Providers Care Tool And Die Maker Level Five Name Role Phone Anthony Mazariegos MD Primary Care Provider [phone] Emmanuel Nobles MD Unavailable [phone] Anthony Leyva MD Unavailable + [phone] Anthony Leyva MD Unavailable + [phone] Evaristo Stack CNP Unavailable [phone] Anthony Mazariegos MD Unavailable [phone] Encounter Details Date Type Department Care Team [...] Description 05/11/2023 1:30 PM CDT Virtual Visit [address] [place] [phone] Evaristo Stack CNP [address] [place], [place] [phone] Nallely Saravia MD [address] [place] [address] documented as of this encounter Visit Diagnoses Not on filedocumented in this encounter Care Teams Tool And Die Maker Level Five Relationship Specialty Start Date End Date Anthony Mazariegos MD [address] [facility] [address] [place], [place] [id number] PCP - General Cardiovascular Disease 01/14/22 3 Emmanuel Nobles MD [facility] [address] [place] [id number] Hematology 02/07/22 Anthony Leyva MD [address] [place] [address] Gastroenterology 02/07/22 Anthony Leyva MD [address] [place] [address] Assigned Gastroenterology Provider 04/12/22 Evaristo Stack CNP [facility] [address] [place] [address] Assigned Cancer Care Provider 07/26/22 Anthony Mazariegos MD [address] [facility] [address] [place] [address] Assigned Heart and Vascular Provider 07/19/22 09/19/22 documented as of this encounter
--- OUTSIDE RECORDS SUMMARY | 2023-04-01 08:42 | XMS_ITS | Encounter Summary ---
Author Name Unknown Organization [place] Address [address] [facility] [place] [address] Care Team Providers Care University Lecturer Name Role Phone HenryciraEmmanuel MD Unavailable [phone] Anthony Leyva MD Unavailable [phone] Anthony Leyva MD Unavailable + [phone] Evaristo Stack OPERATIONS DIRECTOR Unavailable [phone] Shaila Mota APRN OPERATIONS DIRECTOR Unavailable Emil Cope MD Primary Care Provider [...] Description 05/11/2023 1:30 PM CDT Virtual Visit [facility] [address] [facility] [address] [place] [phone] Evaristo Stack CNP [address] [facility] [address] [place], [place] [phone] Nallely Saravia MD [address] [place], [place] [phone] documented as of this encounter Visit Diagnoses Not on filedocumented in this encounter Care Teams University Lecturer Relationship Specialty Start Date End Date Emil Cope MD [facility] [address] [place] [address] PCP - General Emergency Medicine 09/30/22 Emmanuel Nobles MD [facility] [place] [place] [phone] Hematology 02/07/22 Anthony Leyva MD [address] [place] [address] Gastroenterology 02/07/22 Anthony Leyva MD [address] [place] [address] Assigned Gastroenterology Provider 04/12/22 Evaristo Stack CNP [address] [place] [address] Assigned Cancer Care Provider 07/26/22 Shaila Mota APRN OPERATIONS DIRECTOR [address] [facility] [place] [address] Assigned Heart and Vascular Provider 09/20/22 01/16/23 documented as of this encounter
--- OUTSIDE RECORDS SUMMARY | 2023-04-01 08:42 | XMS_ITS | Encounter Summary ---
Author Name Unknown Organization [place] Address [address] [facility] [place] [address] Care Team Providers Care Human Geography Faculty Member Name Role Phone Anthony Mazariegos MD Primary Care Provider [phone] Emmanuel Nobles MD Unavailable [phone] Anthony Leyva MD Unavailable + [phone] Anthony Leyva MD Unavailable + [phone] Evaristo Stack CNP Unavailable [phone] Anthony Mazariegos MD Unavailable [phone] Encounter Details Date Type Department Care Team (Late st Contact Info) Description 09/15/2022 1:30 PM CDT Lab [facility] [place] [address] Chronic heart failure with preserved [...] [facility] [address] [place] [address] Evaristo Stack, STERILE SUPPLY TECHNICIAN [address] [place] [address] Nallely Saravia MD [address] [place] [address] documented as of this encounter Procedures Procedure Name Priority Date/Time Associated Diagnosis Comments BASIC METABOLIC PANEL Routine 09/15/2022 12:29 PM CDT Chronic heart failure with preserved ejection fraction (H) Hypokalemia documented in this encounter Results * (ABNORMAL) Basic metabolic panel (09/15/2022 12:29 PM CDT) Sodium 139 136 - 145 mmol/L 09/15/2022 12:47 PM [facility] Potassium 3.6 3.5 - 5.0 mmol/L 09/15/2022 12:47 PM [facility] Chloride 96(L) 98 - 107 mmol/L 09/15/2022 12:47 PM [facility] Carbon Dioxide (CO2) 31 22 - 31 mmol/L 09/15/2022 12:47 PM [facility] Anion Gap 12 5 - 18 mmol/L 09/15/2022 12:47 PM [facility] Urea Nitrogen 40(H) 8 - 28 mg/dL 09/15/2022 12:47 PM [facility] Creatinine 2.43(H) 0.70 - 1.30 mg/dL 09/15/2022 12:47 PM [facility] Calcium 10.8(H) 8.5 - 10.5 mg/dL 09/15/2022 12:47 PM [facility] Glucose 120 70 - 125 mg/dL 09/15/2022 12:47 PM [facility] GFR Estimate 26(L) >60 mL/min/1.7 3m2 09/15/2022 12:47 PM CDT [facility] Blood STRUCTURE OF LEFT UPPER LIMB / Unknown Venipuncture / Unknown 09/15/2022 12:29 PM CDT 09/15/2022 12:30 PM CDT Anthony Mazariegos MD LAB - BLOOD ORDERABL ES [facility] [address] [address] [phone] documented in this encounter Visit Diagnoses Diagnosis Chronic heart failure with preserved ejection fraction (H) Hypokalemia Hypopotassemia documented in this encounter Care Teams Human Geography Faculty Member Relationship Specialty Start Date End Date Anthony Mazariegos MD [address] [facility] [address] [place] [address] PCP - General Cardiovascular Disease 01/14/22 3 Emmanuel Nobles MD [address] [place] [address] Hematology 02/07/22 Anthony Leyva MD [address] [place] [address] Gastroenterology 02/07/22 Anthony Leyva MD [address] [place] [address] Assigned Gastroenterology Provider 04/12/22 Evaristo Stack, LANA [address] [facility] [address] [place] [address] Assigned Cancer Care Provider 07/26/22 Anthony Mazariegos MD [address] [facility] [address] [place] [address] Assigned Heart and Vascular Provider 07/19/22 09/19/22 documented as of this encounter
--- OUTSIDE RECORDS SUMMARY | 2023-04-01 08:42 | XMS_ITS | Encounter Summary ---
Author Name Unknown Organization [place] Address [facility] [place] [address] Care Team Providers Care Sewing Demonstrator Name Role Phone Emmanuel Nobles MD Unavailable [phone] Anthony Leyva MD Unavailable [phone] Anthony Leyva MD Unavailable [phone] Evaristo Stack MEMBER OF PARLIAMENT Unavailable [phone] Shaila Mota APRN MEMBER OF PARLIAMENT Unavailable Emil Cope MD Primary Care Provider [...] fraction (H) Anthony Mazariegos MD [address] [facility] [address] [place] [address] Referral ID Status Reason Start Date Expiration Date V isits Requested Visits Authorized [id number] Pending Review 01/13/2023 01/13/2024 1 1 Question Answer Preferred Location: [facility] Follow-up with: Self Scheduling Instructions: [facility] will call you to coordinate your care as prescribed by your provider. If you have concerns about scheduling, please call [phone]. Comments [facility] will call you to coordinate your care as prescribed by your provider. If you have concerns about scheduling, please call [phone]. TRIC MOTOR CONTROLS ASSEMBLER Reason for Visit * Reason Comments Follow Up * Consultation (Routine: Next available opening) - Pending Review Specialty Diagnoses / Procedures Referred By Contac t Referred To Contact Cardiovascular Disease Diagnoses Chronic heart failure with preserved ejection fraction (H) Shaila Mota APRN MEMBER OF PARLIAMENT [address] [facility], [address] [place] [address] Referral ID Status Reason Start Date Expiration Date V isits Requested Visits Authorized [id number] Pending Review 09/15/2022 09/15/2023 1 1 Encounter Details Date Type Department Care Team (Late st Contact Info) Description 01/13/2023 2:20 PM ELECTRIC MOTOR CONTROLS ASSEMBLER Office Visit [facility] Heart [facility] [address] [facility] [address] [place] [address] Shaila Mota APRN MEMBER OF PARLIAMENT [address] [facility] [place] [address] Anthony Mazariegos MD [address] [facility] [address] [place] [address] Acute on chronic diastolic heart [...] Comments Blood Pressure 132/60 01/13/2023 2:03 PM ELECTRIC MOTOR CONTROLS ASSEMBLER Pulse 83 01/13/2023 2:03 PM ELECTRIC MOTOR CONTROLS ASSEMBLER Temperature - - Respiratory Rate 16 01/13/2023 2:03 PM ELECTRIC MOTOR CONTROLS ASSEMBLER Oxygen Saturation 96% 01/13/2023 2:03 PM ELECTRIC MOTOR CONTROLS ASSEMBLER Inhaled Oxygen Concentration - - Weight 110.5 kg (243 lb 8 oz) 01/13/2023 2:03 PM ELECTRIC MOTOR CONTROLS ASSEMBLER Height 182.9 cm (6') 01/13/2023 2:03 PM ELECTRIC MOTOR CONTROLS ASSEMBLER Body Mass Index 33.02 01/13/2023 2:03 PM ELECTRIC MOTOR CONTROLS ASSEMBLER documented in this encounter Progress Notes * Anthony Mazariegos MD - 01/13/2023 2:20 PM CST Images from the original note were not included. [facility] [phone] Assessment/Recommendations Patient with heart failure with preserved [...] cooperative and in no acute distress. ENT/Mouth: [place]/moist oral mucosa EYES: no scleral icterus, normal [...] PLACEMENT; Surgeon: Jose Alberto Diallo MD; Location: [facility] OR ESOPHAGOSCOPY, GASTROSCOPY, DUODENOSCOPY (EGD), COMBINED N/A 12/13/2021 Procedure: ESOPHAGOGASTRODUODENOSCOPY (EGD) WITH BIOPSIES; Surgeon: Jose Alberto Diallo MD; Location: [facility] Main OR HERNIA REPAIR left nephrectomy[ RELEASE [...] Currently Other Topics Concern Parent/sibling w/ CABG, RI or angioplasty before 65F 55M? Not Asked [...] TSH 1.56 12/16/2021 INR 1.67 (H) 12/12/2021 TRIC MOTOR CONTROLS ASSEMBLER documented in this encounter Plan of Treatment Upcoming Encounters Date Type Department Care Team (Late st Contact Info) Description 05/11/2023 1:30 PM CDT Virtual Visit [facility] [address] [facility] [address] [place] [address] Evaristo Stack CNP [address] [place] [address] [address] [place] [address] Nallely Saravia MD [address] [place] [address] Scheduled Referrals Name Type Priority Associated Diagnoses [...] PRO BNP OUTPATIENT Routine 01/13/2023 2:51 PM ELECTRIC MOTOR CONTROLS ASSEMBLER Acute on chronic diastolic heart failure (H) Stage 3 chronic kidney disease, unspecified whether stage 3a or 3b CKD (H) Essential hypertension Iron malabsorption Permanent atrial fibrillation (H) VIANNEY (obstructive sleep apnea) Heart failure with preserved ejection fraction, unspecified HF chronicity (H) Chronic heart failure with preserved ejection fraction (H) BASIC METABOLIC PANEL Routine 01/13/2023 2:51 PM ELECTRIC MOTOR CONTROLS ASSEMBLER Acute on chronic diastolic heart failure (H) Stage 3 chronic kidney disease, unspecified whether stage 3a or 3b CKD (H) Essential hypertension Iron malabsorption Permanent atrial fibrillation (H) VIANNEY (obstructive sleep apnea) Heart failure with preserved ejection fraction, unspecified HF chronicity (H) Chronic heart failure with preserved ejection fraction (H) documented in this encounter Results * (ABNORMAL) Basic metabolic panel (01/13/2023 2:51 PM ELECTRIC MOTOR CONTROLS ASSEMBLER) [facility] Sodium 139 135 - 145 mmol/L 01/13/2023 4:53 PM [facility] Comment:Reference intervals for this test were updated on 11/25/2022 to more accurately reflect our healthy population. There may be differences in the flagging of prior results with similar values performed with this method. Interpretation of those prior results can be made in the context of the updated reference intervals. Potassium 3.7 3.4 - 5.3 mmol/L 01/13/2023 4:53 PM ELECTRIC MOTOR CONTROLS ASSEMBLER [facility] Chloride 94(L) 98 - 107 mmol/L 01/13/2023 4:53 PM [facility] Carbon Dioxide (CO2) 32(H) 22 - 29 mmol/L 01/13/2023 4:53 PM [facility] Anion Gap 13 7 - 15 mmol/L 01/13/2023 4:53 PM [facility] Urea Nitrogen 39.2(H) 8.0 - 23.0 mg/dL 01/13/2023 4:53 PM [facility] Creatinine 2.25(H) 0.67 - 1.17 mg/dL 01/13/2023 4:53 PM [facility] GFR Estimate 29(L) >60 mL/min/1. 73m2 01/13/2023 4:53 PM [facility] Calcium 11.2(H) 8.8 - 10.2 mg/dL 01/13/2023 4:53 PM [facility] Glucose 94 70 - 99 mg/dL 01/13/2023 4:53 PM [facility] Blood STRUCTURE OF LEFT UPPER LIMB / Unknown Venipuncture / Unknown 01/13/2023 2:51 PM ELECTRIC MOTOR CONTROLS ASSEMBLER 01/13/2023 4:22 PM ELECTRIC MOTOR CONTROLS ASSEMBLER Anthony Mazariegos MD LAB - BLOOD ORDERABL ES [facility] [address] [facility] [place] [address], [place] [phone] * (ABNORMAL) N terminal pro BNP outpatient (01/13/2023 2:51 PM ELECTRIC MOTOR CONTROLS ASSEMBLER) N Terminal Pro BNP Outpatient 2,066(H) 0 - 1,800 pg/mL 01/13/2023 4:53 PM [facility] Comment: Reference range shown and [...] Unknown Venipuncture / Unknown 01/13/2023 2:51 PM ELECTRIC MOTOR CONTROLS ASSEMBLER 01/13/2023 4:22 PM ELECTRIC MOTOR CONTROLS ASSEMBLER Anthony Mazariegos MD LAB - BLOOD ORDERABL ES [facility] [address] [address] [phone] documented in this encounter Visit Diagnoses Diagnosis [...] (H) documented in this encounter Care Teams Sewing Demonstrator Relationship Specialty Start Date End Date Emil Cope MD [facility] [address] [place] [address] PCP - General Emergency Medicine 09/30/22 Emmanuel Nobles MD [address] [place] [address] Hematology 02/07/22 Anthony Leyva MD [address] [place] [address] Gastroenterology 02/07/22 Anthony Leyva MD [address] [place] [address] Assigned Gastroenterology Provider 04/12/22 Evaristo Stack, MEMBER OF PARLIAMENT [address] [place] [address] Assigned Cancer Care Provider 07/26/22 Shaila Mota APRN MEMBER OF PARLIAMENT [address] [facility], [address] [place] [address] Assigned Heart and Vascular Provider 09/20/22 01/16/23 documented as of this encounter
--- OUTSIDE RECORDS SUMMARY | 2023-04-01 08:42 | XMS_ITS | Encounter Summary ---
Author Name Unknown Organization [place] Address [address] [facility] [address] Care Team Providers Care Crop And Soil Scientist Name Role Phone Anthony Mazariegos MD Primary Care Provider + [phone] Emmanuel Nobles MD Unavailable [phone] Anthony Leyva MD Unavailable Verona Mclain HOLLOCK MAKER LACQUER SPRAYER Unavailable Anthony Leyva MD Unavailable + [phone] Shaila Mota HOLLOCK MAKER LACQUER SPRAYER Unavailable Encounter Details Date Type Department Care [...] 05/11/2023 1:30 PM CDT Virtual Visit [facility]ly [facility] [address] [facility] [address] [place] [phone] Evaristo Stack CNP [address]75 [facility] [address] [place], [place] [phone] Nallely Saravia MD [address] [place], [place] [phone] documented as of this encounter Visit Diagnoses Not on filedocumented in this encounter Care Teams Crop And Soil Scientist Relationship Specialty Start Date End Date Anthony Mazariegos MD 1600 [facility] [address] [place], [place] [phone] PCP - General Cardiovascular Disease 01/14/22 3 Emmanuel Nobles MD [address] [facility] [place] [id number] Hematology 02/07/22 Anthony Leyva MD [address] [place] [address] Gastroenterology 02/07/22 Verona Mclain APRN LACQUER SPRAYER 1575 [place] [address] Assigned Cancer Care Provider 04/05/22 07/25/22 Anthony Leyva MD 909 [place] [address] Assigned Gastroenterology Provider 04/12/22 Shaila Mota APRN LACQUER SPRAYER [address] [facility], [address] [place] [address] Assigned Heart and Vascular Provider 05/17/22 07/18/22 documented as of this encounter
--- OUTSIDE RECORDS SUMMARY | 2023-04-01 08:42 | XMS_ITS | Encounter Summary ---
Author Name Unknown Organization [place] Address [address] [place] [address] Care Team Providers Care Power Shovel Operator Name Role Phone HenryciraEmmanuel MD Unavailable [phone] Anthony Leyva MD Unavailable + [phone] Anthony Leyva MD Unavailable Evaristo Stack PECAN HULLER Unavailable Shaila Mota APRN PECAN HULLER Unavailable Emil Cope MD Primary Care Provider Encounter Details Date Type Department Care Team (Late st Contact Info) Description 01/14/2023 [facility] [place] [address] [facility] [address] [place] [phone] Estela Adam Acute on chronic diastolic heart [...] 1:30 PM CDT Virtual Visit [facility] [address] [place] [phone] Evaristo Stack CNP [address] [place], [place] [phone] Nallely Saravia MD [address] [place], [place] [phone] Scheduled Orders Name Type Priority Associated Diagnoses Orde r Schedule Basic metabolic panel Lab Routine Acute on chronic diastolic heart failure (H) Expected: 01/14/2023 (Approximate), Expires: 01/15/2024 documented as of this encounter Visit Diagnoses Diagnosis Acute on chronic diastolic heart failure (H)- Primary Acute on chronic diastolic heart failure documented in this encounter Care Teams Power Shovel Operator Relationship Specialty Start Date End Date Emil Cope MD [facility] [address] [place] [address] PCP - General Emergency Medicine 09/30/22 Emmanuel Nobles MD [address] [place] [address] Hematology 02/07/22 Anthony Leyva MD [address] [place] [address] Gastroenterology 02/07/22 Anthony Leyva MD [address] [place] [address] Assigned Gastroenterology Provider 04/12/22 Evaristo Stack CNP [address] [place] [address] Assigned Cancer Care Provider 07/26/22 Shaila Mota, TOYA PECAN HULLER [address] [facility], [address] [place] [address] Assigned Heart and Vascular Provider 09/20/22 01/16/23 documented as of this encounter
--- OUTSIDE RECORDS SUMMARY | 2023-04-01 08:42 | XMS_ITS | Encounter Summary ---
Author Name Unknown Organization [place] Address [facility] [address] Care Team Providers Care Adding Machine Servicer Name Role Phone Anthony Mazariegos MD Primary Care Provider [phone] Emmanuel Nobles MD Unavailable [phone] Anthony Leyva MD Unavailable + [phone] Anthony Leyva MD Unavailable + [phone] Evaristo Stack CNP Unavailable [phone] Anthony Mazariegos MD Unavailable [phone] Encounter Details Date Type Department Care Team (Late st Contact Info) Description 08/18/2022 11:00 AM CDT Lab [facility]5 [place] [phone] Chronic heart failure with preserved ejection fraction [...] Description 05/11/2023 1:30 PM CDT Virtual Visit [facility] [address] [facility] [address] [place] [phone] Evaristo Stack, LANA [address] [facility] [address] [place], [place] [phone] Nallely Saravia MD [address] [place], [place] [phone] documented as of this encounter Procedures Procedure Name Priority Date/Time Associated Diagnosis Comments BASIC METABOLIC PANEL Routine 08/18/2022 10:55 AM CDT Chronic heart failure with preserved ejection fraction (H) documented in this encounter Results * (ABNORMAL) Basic metabolic panel (08/18/2022 10:55 AM CDT) Sodium 139 136 - 145 mmol/L 08/18/2022 11:12 AM T [facility] Potassium 3.4(L) 3.5 - 5.0 mmol/L 08/18/2022 11:12 AM [facility] Chloride 96(L) 98 - 107 mmol/L 08/18/2022 11:12 AM [facility] Carbon Dioxide (CO2) 31 22 - 31 mmol/L 08/18/2022 11:12 AM [facility] Anion Gap 12 5 - 18 mmol/L 08/18/2022 11:12 AM T [facility] Urea Nitrogen 44(H) 8 - 28 mg/dL 08/18/2022 11:12 AM [facility] Creatinine 2.34(H) 0.70 - 1.30 mg/dL 08/18/2022 11:12 AM [facility] Calcium 10.9(H) 8.5 - 10.5 mg/dL 08/18/2022 11:12 AM [facility] Glucose 92 70 - 125 mg/dL 08/18/2022 11:12 AM [facility] GFR Estimate 28(L) >60 mL/min/1.7 3m2 08/18/2022 11:12 AM CDT [facility] Comment:eGFR calculated us2020 CKD-EPI equation. Blood STRUCTURE OF LEFT UPPER LIMB / Unknown Venipuncture / Unknown 08/18/2022 10:55 AM CDT 08/18/2022 10:55 AM CDT Anthony Mazariegos MD LAB - BLOOD ORDERABL ES [facility] [address] [address] [phone] documented in this encounter Visit Diagnoses Diagnosis Chronic heart failure with preserved ejection fraction (H) documented in this encounter Care Teams Adding Machine Servicer Relationship Specialty Start Date End Date Anthony Mazariegos MD [address] [facility] 200 [place] [address] PCP - General Cardiovascular Disease 01/14/22 3 Emmanuel Nobles MD [address] [place] [address] Hematology 02/07/22 Anthony Leyva MD [address] [place] [address] Gastroenterology 02/07/22 Anthony Leyva MD [address] [place] [address] Assigned Gastroenterology Provider 04/12/22 Evaristo Stack, REMELT FURNACE EXPEDITER [address] [facility] [facility] [address] [place] [address] Assigned Cancer Care Provider 07/26/22 Anthony Mazariegos MD [address] [facility] 200 [place] [address] Assigned Heart and Vascular Provider 07/19/22 09/19/22 documented as of this encounter
--- OUTSIDE RECORDS SUMMARY | 2023-04-01 08:42 | XMS_ITS | Encounter Summary ---
Author Name Unknown Organization [place] Address [address] [facility] [place] [address] Care Team Providers Care Die Cast Supervisor Name Role Phone Anthony Mazariegos MD Primary Care Provider + [phone] Emmanuel Nobles MD Unavailable [phone] Anthony Leyva MD Unavailable Verona Mclain NET LEAD DEVELOPER PARKING ENFORCEMENT SPECIALIST Unavailable [phone] Anthony Leyva MD Unavailable + [phone] Shaila Mota NET LEAD DEVELOPER PARKING ENFORCEMENT SPECIALIST Unavailable Encounter Details Date Type Department [...] Visit [facility] [address] [facility] [address] [place] [phone] Evaristo Stack CNP [address] [facility] [address] [place], [place] [phone] Nallely Saravia MD [address] [place], [place] [phone] documented as of this encounter Visit Diagnoses Not on filedocumented in this encounter Care Teams Die Cast Supervisor Relationship Specialty Start Date End Date Anthony Mazariegos MD [address] [facility] [address] [place], [place] [phone] PCP - General Cardiovascular Disease 01/14/22 3 Emmanuel Nobles MD [address] [facility] [place] [phone] Hematology 02/07/22 Anthony Leyva MD [address] [place] [address] Gastroenterology 02/07/22 Verona Mclain APRN PARKING ENFORCEMENT SPECIALIST 15[address] [place] [address] Assigned Cancer Care Provider 04/05/22 07/25/22 Anthony Leyva MD 909 [place] [address] Assigned Gastroenterology Provider 04/12/22 Shaila Mota APRN PARKING ENFORCEMENT SPECIALIST [address] [facility], [address] [place] [address] Assigned Heart and Vascular Provider 05/17/22 07/18/22 documented as of this encounter
--- OUTSIDE RECORDS SUMMARY | 2023-04-01 08:42 | XMS_ITS | Encounter Summary ---
Author Name Unknown Organization [place] Address [address] [place] [address]. [place] [address] Care Team Providers Care Political Researcher Name Role Phone Anthony Mazariegos MD Primary Care Provider Emmanuel Nobles MD Unavailable [phone] Anthony Leyva MD Unavailable [phone] Verona Mclain FARM SPECIALIST LEGAL ADMINISTRATIVE ASSISTANT Unavailable Anthony Leyva MD Unavailable [phone] Shaila Mota FARM SPECIALIST LEGAL ADMINISTRATIVE ASSISTANT Unavailable Encounter Details Date Type Department Care Team (Late st Contact Info) Description 07/17/2022 1:45 PM CDT Lab [address] [place] [address] Evaristo Stack CNP [address] [place] [address] [phone] Other iron deficiency anemia; Myelodysplastic syndrome (H) [...] CDT Virtual Visit [facility] [address] [place] [address] Evaristo Stack, LEGAL ADMINISTRATIVE ASSISTANT [address] [facility] [address] [place] [address] Nallely Saravia MD [address] [place] [address] documented as of this encounter [...] - 11.0 10e3/uL 07/17/2022 1:52 PM CDT [facility] Comment:Preliminary ANC is 7 .2 RBC Count 3.90(L) 4.40 - 5.90 10e6/uL 07/17/2022 1:52 PM CDT [facility] Hemoglobin 12.4(L) 13.3 - 17.7 g/dL 07/17/2022 1:52 PM [facility] Hematocrit 37.2(L) 40.0 - 53.0 % 07/17/2022 1:52 PM [facility] MCV 95 78 - 100 fL 07/17/2022 1:52 PM [facility] MCH 31.8 26.5 - 33.0 pg 07/17/2022 1:52 PM [facility] MCHC 33.3 31.5 - 36.5 g/dL 07/17/2022 1:52 PM [facility] RDW 14.4 10.0 - 15.0 % 07/17/2022 1:52 PM [facility] Platelet Count 177 150 - 450 10e3/uL 07/17/2022 1:52 PM [facility] % Neutrophils 66 % 07/17/2022 1:52 PM [facility] % Lymphocytes 21 % 07/17/2022 1:52 PM [facility] % Monocytes 9 % 07/17/2022 1:52 PM [facility] % Eosinophils 3 % 07/17/2022 1:52 PM [facility] % Basophils 1 % 07/17/2022 1:52 PM [facility] % Immature Granulocytes 0 % 07/17/2022 1:52 PM [facility] NRBCs per 100 WBC 0 <1 /100 023 1:52 PM [facility] Absolute Neutrophils 7.2 1.6 - 8.3 10e3/uL 07/17/2022 1:52 PM [facility] Absolute Lymphocytes 2.3 0.8 - 5.3 10e3/uL 07/17/2022 1:52 PM [facility] Absolute Monocytes 1.0 0.0 - 1.3 10e3/uL 07/17/2022 1:52 PM [facility] Absolute Eosinophils 0.3 0.0 - 0.7 10e3/uL 07/17/2022 1:52 PM [facility] Absolute Basophils 0.1 0.0 - 0.2 10e3/uL 07/17/2022 1:52 PM [facility] Absolute Immature Granulocytes 0.0 <=0.4 10e3/uL 07/17/2022 1:52 PM CDT [facility] Absolute NRBCs 0.0 10e3/uL 07/17/2022 1:52 PM CDT [facility] Blood BLOOD SPECIMEN / Unknown Venipuncture / Unknown 07/17/2022 1:36 PM CDT 07/17/2022 1:46 PM CDT Verona Mclain TOYA LEGAL ADMINISTRATIVE ASSISTANT LAB - BLOOD O RDERABLES [facility] [address] [facility] [place], [place] [phone] [place] [address] * (ABNORMAL) Comprehensive metabolic panel (BMP + Alb, Alk Phos, ALT, AST, Total. Bili, TP) (07/17/2022 1:36 PM CDT) Sodium 138 136 - 145 mmol/L 07/17/2022 2:10 PM [facility] Potassium 3.6 3.5 - 5.0 mmol/L 07/17/2022 2:10 PM T [facility] Chloride 97(L) 98 - 107 mmol/L 07/17/2022 2:10 PM T [facility] Carbon Dioxide (CO2) 31 22 - 31 mmol/L 07/17/2022 2:10 PM [facility] Anion Gap 10 5 - 18 mmol/L 07/17/2022 2:10 PM [facility] Urea Nitrogen 44(H) 8 - 28 mg/dL 07/17/2022 2:10 PM CDT [facility] Creatinine 2.32(H) 0.70 - 1.30 mg/dL 07/17/2022 2:10 PM CDT [facility] Calcium 10.2 8.5 - 10.5 mg/dL 07/17/2022 2:10 PM CDT [facility] Glucose 92 70 - 125 mg/dL 07/17/2022 2:10 PM T [facility] Alkaline Phosphatase 90 45 - 120 U/L 07/17/2022 2:10 PM CDT [facility] AST 21 0 - 40 U/L 07/17/2022 2:10 PM CDT [facility] ALT 22 0 - 45 U/L 07/17/2022 2:10 PM CDT [facility] Protein Total 7.7 6.0 - 8.0 g/dL 07/17/2022 2:10 PM CDT [facility] Albumin 3.9 3.5 - 5.0 g/dL 07/17/2022 2:10 PM CDT [facility] Bilirubin Total 0.6 0.0 - 1.0 mg/dL 07/17/2022 2:10 PM CDT [facility] GFR Estimate 28(L) >60 mL/min/1.7 3m2 07/17/2022 2:10 PM CDT [facility] Comment:eGFR calculated usin 2020 CKD-EPI equation. Blood BLOOD SPECIMEN / Unknown Venipuncture / Unknown 07/17/2022 1:36 PM CDT 07/17/2022 1:46 PM CDT Verona Mclain APRN LEGAL ADMINISTRATIVE ASSISTANT LAB - BLOOD O RDERABLES [facility] [address] [facility] [address] [phone] * Ferritin (07/17/2022 1:36 PM CDT) Ferritin 116 31 - 409 ng/mL 07/17/2022 9:12 PM CDT LABORATORY Blood BLOOD SPECIMEN / Unknown Venipuncture / Unknown 07/17/2022 1:36 PM CDT 07/17/2022 1:46 PM CDT Verona Mclain APRN LEGAL ADMINISTRATIVE ASSISTANT LAB - BLOOD O RDERABLES [facility] [address] [facility] [place] [address], [facility] [phone] documented in this encounter Visit Diagnoses Diagnosis Other iron deficiency anemia Myelodysplastic syndrome (H) Myelodysplastic syndrome, unspecified documented in this encounter Care Teams Political Researcher Relationship Specialty Start Date End Date Anthony Mazariegos MD [address] [facility] [address] [place] [address] PCP - General Cardiovascular Disease 01/14/22 3 [place] [address] [place] [address] [place] [address] Hematology 02/07/22 Anthony Leyva MD 9 [place] [address] Gastroenterology 02/07/22 Verona Mclain APRN LEGAL ADMINISTRATIVE ASSISTANT [address] [place] [address] Assigned Cancer Care Provider 04/05/22 07/25/22 Anthony Leyva MD 909 [place] [address] Assigned Gastroenterology Provider 04/12/22 Shaila Mota APRN LEGAL ADMINISTRATIVE ASSISTANT [address] [facility] [place] [address] Assigned Heart and Vascular Provider 05/17/22 07/18/22 documented as of this encounter
--- OUTSIDE RECORDS SUMMARY | 2023-04-01 08:42 | XMS_ITS | Encounter Summary ---
Author Name Unknown Organization [place] Address [facility] [place] [address] Care Team Providers Care Paint Maker Name Role Phone Anthony Mazariegos MD Primary Care Provider + [phone] Emmanuel Nobles MD Unavailable [phone] Anthony Leyva MD Unavailable + [phone] Anthony Leyva MD Unavailable + [phone] Evaristo Stack CNP Unavailable [phone] Anthony Mazariegos MD Unavailable [phone] Encounter Details Date Type Department Care Team [...] Description 05/11/2023 1:30 PM CDT Virtual Visit [address] [place] [phone] Evaristo Stack CNP [address] [place], [place] [phone] Nallely Saravia MD [address] [place] [address] documented as of this encounter Visit Diagnoses Not on filedocumented in this encounter Care Teams Paint Maker Relationship Specialty Start Date End Date Anthony Mazariegos MD 1600 [facility] 200 [place], [place] [phone] PCP - General Cardiovascular Disease 01/14/22 3 Emmanuel Nobles MD [facility] [address] [place] [phone] Hematology 02/07/22 Anthony Leyva MD [address] [place] [address] Gastroenterology 02/07/22 Anthony Leyva MD [address] [place] [address] Assigned Gastroenterology Provider 04/12/22 Evaristo Stack CNP [facility] [address] [place] [address] Assigned Cancer Care Provider 07/26/22 Anthony Mazariegos MD 1600 [facility] 200 [place] [address] Assigned Heart and Vascular Provider 07/19/22 09/19/22 documented as of this encounter
--- OUTSIDE RECORDS SUMMARY | 2023-04-01 08:42 | XMS_ITS | Encounter Summary ---
Author Name Unknown Organization [place] Address [address] [facility] [place] [address] Care Team Providers Care Forensic Structural Engineer Name Role Phone HenryciraEmmanuel MD Unavailable [phone] Anthony Leyva MD Unavailable + [phone] Anthony Leyva MD Unavailable + [phone] Evaristo Stack FISH RECEIVER Unavailable [phone] Shaila Mota APRN FISH RECEIVER Unavailable Emil Cope MD Primary Care Provider [...] Description 05/11/2023 1:30 PM CDT Virtual Visit [address] [place] [address] Evaristo Stack, FISH RECEIVER [facility] [place] [address] Nallely Saravia MD [address]75 [place] [address] documented as of this encounter Visit Diagnoses Not on filedocumented in this encounter Care Teams Forensic Structural Engineer Relationship Specialty Start Date End Date Emil Cope MD [facility] 1999 [place] [address] PCP - General Emergency Medicine 09/30/22 Emmanuel Nobles MD [address] [place] [address] Hematology 02/07/22 Anhtony Leyva MD [address] [place] [address] Gastroenterology 02/07/22 Anthony Leyva MD [address] [place] [address] Assigned Gastroenterology Provider 04/12/22 Evaristo Stack CNP [address] [place] [address] Assigned Cancer Care Provider 07/26/22 Shaila Mota APRN FISH RECEIVER [address] [facility], [address] [place] [address] Assigned Heart and Vascular Provider 09/20/22 01/16/23 documented as of this encounter
--- OUTSIDE RECORDS SUMMARY | 2023-04-01 08:42 | XMS_ITS | Encounter Summary ---
Author Name Unknown Organization [place] Address [facility] [place] [address] Care Team Providers Care Emu Farmer Name Role Phone Anthony Mazariegos MD Primary Care Provider Emmanuel Nobles MD Unavailable [phone] Anthony Leyva MD Unavailable + [phone] Anthony Leyva MD Unavailable + [phone] Evaristo Stack CNP Unavailable [phone] Anthony Mazariegos MD Unavailable [phone] Reason for Visit * Reason Onset Date Comments Patient Request 08/04/2022 Encounter Details Date Type Department Care Team (Late st Contact Info) Description 08/04/2022 [facility] [address] [facility] [address] [place] [phone] Estela Adam Patient Request Social History Tobacco [...] 1:30 PM CDT Virtual Visit [facility] [address] [facility] [address] [place] [address] Evaristo Stack, LANA [address] [facility] [address] [place] [address] Nallely Saravia MD [address] [place] [address] documented as of this encounter Results * (ABNORMAL) Basic metabolic panel (08/18/2022 10:55 AM CDT) Pathologist [facility] Sodium 139 136 - 145 mmol/L 08/18/2022 11:[address] [facility] Potassium 3.4(L) 3.5 - 5.0 mmol/L 08/18/2022 11:[address] [facility] Chloride 96(L) 98 - 107 mmol/L 08/18/2022 11:[address] [facility] Carbon Dioxide (CO2) 31 22 - 31 mmol/L 08/18/2022 11:[address] [facility] Anion Gap 12 5 - 18 mmol/L 08/18/2022 11:[address] [facility] Urea Nitrogen 44(H) 8 - 28 mg/dL 08/18/2022 11:[address] [facility] Creatinine 2.34(H) 0.70 - 1.30 mg/dL 08/18/2022 11:[address] [facility] Calcium 10.9(H) 8.5 - 10.5 mg/dL 08/18/2022 11:[address] [facility] Glucose 92 70 - 125 mg/dL 08/18/2022 11:[address] [facility] GFR Estimate 28(L) >60 mL/min/1.7 3m2 08/18/2022 11:12 AM CDT [facility] Comment:eGFR calculated us2020 CKD-EPI equation. Blood STRUCTURE OF LEFT UPPER LIMB / Unknown Venipuncture / Unknown 08/18/2022 10:55 AM CDT 08/18/2022 10:55 AM CDT Anthony Mazariegos MD LAB - BLOOD ORDERABL ES [facility] [address] [address] [phone] documented in this encounter Visit Diagnoses Diagnosis Chronic heart failure with preserved ejection fraction (H) documented in this encounter Care Teams Emu Farmer Relationship Specialty Start Date End Date Anthony Mazariegos MD 1600 [facility] 200 [place] [address] PCP - General Cardiovascular Disease 01/14/22 3 Emmanuel Nobles MD [address] [place] [address] Hematology 02/07/22 Anthony Leyva MD [address] [place] [address] Gastroenterology 02/07/22 Anthony Leyva MD [address] [place] [address] Assigned Gastroenterology Provider 04/12/22 Evaristo Stack, COPY OPERATOR [address] [facility] [address] [place] [address] Assigned Cancer Care Provider 07/26/22 Anthony Mazariegos MD 1600 [facility] 200 [place] [address] Assigned Heart and Vascular Provider 07/19/22 09/19/22 documented as of this encounter
--- OUTSIDE RECORDS SUMMARY | 2023-04-01 08:42 | XMS_ITS | Encounter Summary ---
Author Name Unknown Organization [place] Address [facility] [address] Care Team Providers Care Internet Marketing Coordinator Name Role Phone HenryciraEmmanuel MD Unavailable [phone] Anthony Leyva MD Unavailable [phone] Anthony Leyva MD Unavailable [phone] Evaristo Stack GROUND INSTRUCTOR BASIC Unavailable Shaila Mota APRN GROUND INSTRUCTOR BASIC Unavailable Emil Cope MD Primary Care Provider Reason for Visit * Reason Comments Medication Refill Encounter Details Date Type Department Care Team (Late st Contact Info) Description 10/20/2022 Refill [facility] [address] [facility] [address] [place] [phone] Anthony Mazariegos MD [address] [facility] [address] [place], [place] [phone] Medication Refill Social History Tobacco Use Types [...] Description 05/11/2023 1:30 PM CDT Virtual Visit [facility] [address] [facility] [address] [place] [phone] Evaristo Stack CNP [address] [place], [place] [phone] Nallely Saravia MD [facility]5 [place] [address] documented as of this encounter Visit Diagnoses Diagnosis Hypokalemia Hypopotassemia documented in this encounter Care Teams Internet Marketing Coordinator Relationship Specialty Start Date End Date Emil Cope MD [facility] [address] [place] [address] PCP - General Emergency Medicine 09/30/22 Emmanuel Nobles MD [facility] [place] [address] Hematology 02/07/22 Anthony Leyva MD [address] [place] [address] Gastroenterology 02/07/22 Anthony Leyva MD [address] [place] [address] Assigned Gastroenterology Provider 04/12/22 Evaristo Stack CNP [facility] [address] [address] [place] [address] Assigned Cancer Care Provider 07/26/22 Shaila Mota APRN GROUND INSTRUCTOR BASIC [address] [place] [address] [address] [place] [address] Assigned Heart and Vascular Provider 09/20/22 01/16/23 documented as of this encounter
--- OUTSIDE RECORDS SUMMARY | 2023-04-01 08:42 | XMS_ITS | Encounter Summary ---
Author Name Unknown Organization [place] Address [facility] [address] Care Team Providers Care Ore Puncher Name Role Phone Anthony Cherry MD Primary Care Provider [phone] Emmanuel Nobles MD Unavailable [phone] Anthony Leyva MD Unavailable + [phone] Anthony Leyva MD Unavailable + [phone] Evaristo Stack CNP Unavailable [phone] Anthony Cherry MD Unavailable [phone] Reason for Referral * Consultation (Routine: Next available opening) - Pending Review Specialty Diagnoses / Procedures Referred By Madeleine watters Referred To Contact Cardiovascular Disease Diagnoses Chronic heart failure with preserved ejection fraction (H) Shaila Mota, SHIRRER PACKING AND SHIPPING CLERK [address] [facility], [address] [place] [address] Referral ID Status Reason Start Date Expiration Date V isits Requested Visits Authorized [id number] Pending Review 09/15/2022 09/15/2023 1 1 Question Answer Follow-up with: Self Scheduling Instructions: [facility] will call you to coordinate your care as prescribed by your provider. If you have concerns about scheduling, please call [phone]. Comments [facility] will call you to coordinate your care as prescribed by your provider. If you have concerns about scheduling, please call [phone]. * Consultation (Routine: Next available opening) - Pending Review Specialty Diagnoses / Procedures Referred By Madeleine watters Referred To Contact Cardiovascular Disease Diagnoses Chronic heart failure with preserved ejection fraction (H) Shaila Mota APRN CNP [address] [facility], [address] [place] [address] Referral ID Status Reason Start Date Expiration Date V isits Requested Visits Authorized [id number] Pending Review 09/15/2022 09/15/2023 1 1 Question Answer Follow-up with: Other Traffic Coordinator Rhonda cherry Scheduling Instructions: [facility] will call you to coordinate your care as prescribed by your provider. If you have concerns about scheduling, please call [phone]. Comments [facility] will call you to coordinate your care as prescribed by your provider. If you have concerns about scheduling, please call [phone]. Reason for Visit * Reason Comments Follow Up * Consultation (Routine: Next available opening) - Pending Review Specialty Diagnoses / Procedures Referred By Madeleine watters Referred To Contact Cardiovascular Disease Diagnoses Chronic heart failure with preserved ejection fraction (H) Shaila Mota APRN CNP [address] [facility], [address] [place] [address] Referral ID Status Reason Start Date Expiration Date V isits Requested Visits Authorized [id number] Pending Review 05/12/2022 05/12/2023 1 1 Encounter Details Date Type Department Care Team (Late st Contact Info) Description 09/15/2022 12:50 PM CDT Office Visit [facility] [place] [address] [facility] [address] [place] [address] Shaila Mota APRN PACKING AND SHIPPING CLERK [address] [facility], [address] [place], [place] [phone] Chronic heart failure with preserved ejection fraction [...] a pleasure to see you today at [facility]. My recommendations after this visit [...] a 82 year old male seen at [facility] heart failure clinic today for continued follow-up. [...] Location: [facility] Main OR ??? ESOPHAGOSCOPY, GASTROSCOPY, DUODENOSCOPY [...] Other Topics Concern ??? Parent/sibling w/ CABG, [place] or angioplasty before 65F 55M? Not Asked [...] 05/11/2023 1:30 PM CDT Virtual Visit [address] [place] [phone] Evaristo Stack CNP [address] [place] [address] [address] [place], [place] [phone] Nallely Saravia MD [address] [place], [place] [phone] Scheduled Referrals Name Type Priority Associated Diagnoses [...] (H) documented in this encounter Care Teams Ore Puncher Relationship Specialty Start Date End Date Anthony Cherry MD [address] [facility] 200 [place] [address] PCP - General Cardiovascular Disease 01/14/22 3 Emmanuel Nobles MD [address] [place] [address] Hematology 02/07/22 Anthony Leyva MD [address] [place] [address] Gastroenterology 02/07/22 Anthony Leyva MD [address] [place] [address] Assigned Gastroenterology Provider 04/12/22 Evaristo Stack CNP [address] [address] Assigned Cancer Care Provider 07/26/22 Anthony Cherry MD [address] [facility] 200 [place] [address] Assigned Heart and Vascular Provider 07/19/22 09/19/22 documented as of this encounter
--- OUTSIDE RECORDS SUMMARY | 2023-04-01 08:42 | XMS_ITS | Encounter Summary ---
Author Name Unknown Organization [place] Address [address] [place] [address] Care Team Providers Care Brand Lead Name Role Phone HenryciraEmmanuel MD Unavailable [phone] Anthony Leyva MD Unavailable [phone] Anthony Leyva MD Unavailable [phone] Evaristo Stack HOSTED SERVICES ANALYST Unavailable Shaila Mota APRN HOSTED SERVICES ANALYST Unavailable Emil Cope MD Primary Care Provider Reason for Visit * Reason Comments Medication Refill Encounter Details Date Type Department Care Team (Late st Contact Info) Description 11/17/2022 Refill [facility] [address] [place] [phone] Anthony Mazariegos MD [address] [facility] [address] [place], [place] [phone] Medication Refill Social History Tobacco Use Types [...] Description 05/11/2023 1:30 PM CDT Virtual Visit [facility] [address] [place] [phone] Evaristo Stack CNP [address] [facility] [address] [place], [place] [phone] Nallely Saravia MD [address] [place], [place] [phone] documented as of this encounter Visit Diagnoses Diagnosis Permanent atrial fibrillation (H) Atrial fibrillation documented in this encounter Care Teams Brand Lead Relationship Specialty Start Date End Date Emil Cope MD [facility] [address] [place] [address] PCP - General Emergency Medicine 09/30/22 Emmanuel Nobles MD [facility] [place] [phone] Hematology 02/07/22 Anthony Leyva MD [address] [place] [address] Gastroenterology 02/07/22 Anthony Leyva MD [address] [place] [address] Assigned Gastroenterology Provider 04/12/22 Evaristo Stack, LANA [facility] [address] [place] [address] Assigned Cancer Care Provider 07/26/22 Shaila Mota APRN [facility] [address] [facility], [address] [place] [address] Assigned Heart and Vascular Provider 09/20/22 01/16/23 documented as of this encounter
--- OUTSIDE RECORDS SUMMARY | 2023-04-01 08:42 | XMS_ITS | Encounter Summary ---
Author Name Unknown Organization [place] Address [facility] [place] [address] Care Team Providers Care Labor Custodian Name Role Phone Anthony Mazairegos MD Primary Care Provider Emmanuel Nobles MD Unavailable [phone] Anthony Leyva MD Unavailable + [phone] Anthony Leyva MD Unavailable + [phone] Evaristo Stack CNP Unavailable [phone] Anthony Mazariegos MD Unavailable [phone] Encounter Details Date Type Department Care Team (Late st Contact Info) Description 2022 Orders Only [facility] [place] [address] [facility] [address] [place] [phone] Yajaira Mclaughlin, tubing tester heart failure with preserved ejection fraction (H) [...] Formerly [facility] [address] [facility] [address] [place] [phone] Evaristo Stack, MOTION PICTURE EQUIPMENT MACHINIST [address] [facility] [address] [place], [place] [phone] Nallely Saravia MD [address] [place], [place] [phone] documented as of this encounter Results * (ABNORMAL) Basic metabolic panel (09/15/2022 12:29 PM CDT) Sodium 139 136 - 145 mmol/L 09/15/2022 12:47 PM [facility] Potassium 3.6 3.5 - 5.0 mmol/L 09/15/2022 12:47 PM [facility] Chloride 96(L) 98 - 107 mmol/L 09/15/2022 12:47 PM [facility] Carbon Dioxide (CO2) 31 22 - 31 mmol/L 09/15/2022 12:47 PM [facility] Anion Gap 12 5 - 18 mmol/L 09/15/2022 12:47 PM [facility] Urea Nitrogen 40(H) 8 - 28 mg/dL 09/15/2022 12:47 PM [facility] Creatinine 2.43(H) 0.70 - 1.30 mg/dL 09/15/2022 12:47 PM [facility] Calcium 10.8(H) 8.5 - 10.5 mg/dL 09/15/2022 12:47 PM [facility] Glucose 120 70 - 125 mg/dL 09/15/2022 12:47 PM [facility] GFR Estimate 26(L) >60 mL/min/1.7 3m2 09/15/2022 12:47 PM [facility] Blood STRUCTURE OF LEFT UPPER LIMB / Unknown Venipuncture / Unknown 09/15/2022 12:29 PM CDT 09/15/2022 12:30 PM CDT Anthony Mazariegos MD LAB - BLOOD ORDERABL [facility] [address] [place] [address], [facility] [phone] documented in this encounter Visit Diagnoses Diagnosis Chronic heart failure with preserved ejection fraction (H)- Primary Hypokalemia Hypopotassemia documented in this encounter Care Teams Labor Custodian Relationship Specialty Start Date End Date Anthony Mazariegos MD [address] [facility] 200 [place] [address] PCP - General Cardiovascular Disease 01/14/22 3 Emmanuel Nobles MD [address] [place] [address] Hematology 02/07/22 Anthony Leyva MD [address] [place] [address] Gastroenterology 02/07/22 Anthony Leyva MD [address] [place] [address] Assigned Gastroenterology Provider 04/12/22 Evaristo Stack, MOTION PICTURE EQUIPMENT MACHINIST [address] [facility] [address] [place] [address] Assigned Cancer Care Provider 07/26/22 Anthony Mazariegos MD [address] [facility] 200 [place] [address] Assigned Heart and Vascular Provider 07/19/22 09/19/22 documented as of this encounter
--- OUTSIDE RECORDS SUMMARY | 2023-04-01 08:42 | XMS_ITS | Encounter Summary ---
Author Name Unknown Organization [place] Address [address] [facility] [place] [address] Care Team Providers Care Grader Operator Name Role Phone Emmanuel Nobles MD Unavailable [phone] Anthony Leyva MD Unavailable [phone] Anthony Leyva MD Unavailable [phone] Evaristo Stack CNP Unavailable Shaila Mota APRN CONTROLLER OPERATIONS AND HR MANAGER Unavailable Emil Cope MD Primary Care Provider Reason for Visit * Reason Comments Oncology Clinic Visit Encounter Details Date Type Department Care Team (Late st Contact Info) Description 11/10/2022 1:15 PM CDT Oncology Visit [address] [place] [phone] Emmanuel Nobles MD [address] [place] [address] Evaristo Stack CNP [address] [place] [phone] Iron deficiency anemia due to chronic blood [...] Stack, LANA - 11/10/2022 1:15 PM CDT [facility] Hematology and Oncology Progress Note Patient: [...] Patient lives over 40 miles away in [place], [place]. I told him it would be totally appropriate to get his labs drawn at the [facility] and video f/up for his next [...] care to the care team. Evaristo Stack, [facility] CC: Anthony Mazariegos MD Review of Systems: [...] PLACEMENT; Surgeon: Jose Alberto Diallo MD; Location: [facility] OR ESOPHAGOSCOPY, GASTROSCOPY, DUODENOSCOPY (EGD), COMBINED N/A 12/13/2021 Procedure: ESOPHAGOGASTRODUODENOSCOPY (EGD) WITH BIOPSIES; Surgeon: Jose Alberto Diallo MD; Location: [facility] Main OR HERNIA REPAIR left nephrectomy[ [...] not needed today. Pharmacy name entered into [employer]: [place], [place] - [address] [facility] Clinical concerns: 4 month follow up Araceli Ospina MA documented in this encounter Plan of Treatment Upcoming Encounters Date Type Department Care Team (Late st Contact Info) Description 05/11/2023 1:30 PM CDT Virtual Visit [facility] [address] [place] [phone] Evaristo Stack, CONTROLLER OPERATIONS AND HR MANAGER [address] [facility] [address] [facility] [place] [address] Nallely Saravia MD [address] [place], [place] [phone] Scheduled Orders Name Type Priority Associated Diagnoses [...] unspecified documented in this encounter Care Teams Grader Operator Relationship Specialty Start Date End Date Emil Cope MD [facility] [address] [place] [address] PCP - General Emergency Medicine 09/30/22 Emmanuel Nobles MD [address] [facility] [place] [address] Hematology 02/07/22 Anthony Leyva MD 909 [place] [address] Gastroenterology 02/07/22 Anthony Leyva MD [address] [place] [address] Assigned Gastroenterology Provider 04/12/22 Evaristo Stack, LANA [address] [facility] 130 [place] [address] Assigned Cancer Care Provider 07/26/22 Shaila Mota APRN CONTROLLER OPERATIONS AND HR MANAGER [address] [facility], [address] [place] [address] Assigned Heart and Vascular Provider 09/20/22 01/16/23 documented as of this encounter
--- OUTSIDE RECORDS SUMMARY | 2023-04-01 08:43 | XMS_ITS | Encounter Summary ---
Author Name Unknown Organization [place] Address [address] [place] [address]. [place] [address] Care Team Providers Care Eating Disorder Psychologist Name Role Phone Anthony Mazariegos MD Primary Care Provider Emmanuel Nobles MD Unavailable [phone] Anthony Leyva MD Unavailable [phone] OFFICE ADMINISTR[address] ROAD TRAIN DRIVER Unavailable Anthony Leyva MD Unavailable [phone] Mota OFFICE ADMINISTRATOR ROAD TRAIN DRIVER Unavailable Reason for Visit * Reason Comments Hematology Other iron deficienc y anemia Encounter Details Date Type Department Care Team (Late st Contact Info) Description 07/17/2022 2:15 PM CDT Oncology Visit [address], [address] [place] [address] Evaristo Stack CNP [address] [place] [address] [address] [place] [address] Other iron deficiency anemia (Primary [...] not needed today. Pharmacy name entered into [facility]: [address] Clinical concerns: Itchy rash, left arm red. Comes and goes. Ashutosh Bustamante LPN * Evaristo Stack CNP - 07/17/2022 2:15 PM CDT [facility] [...] Patient lives over 40 miles away in [place], [place]. I told him it would be totally appropriate to get his labs drawn at the [facility] and video f/up forhis next appointment [...] of care to the care team. Evaristo Stcak, ROAD TRAIN DRIVER CC: Anthony Mazariegos MD Review of Systems: [...] PLACEMENT; Surgeon: Jose Alberto Diallo MD; Location: [facility] Main OR ??? ESOPHAGOSCOPY, GASTROSCOPY, DUODENOSCOPY (EGD), COMBINED N/A 12/13/2021 Procedure: ESOPHAGOGASTRODUODENOSCOPY (EGD) WITH BIOPSIES; Surgeon: Jose Alberto Diallo MD; Location: [facility] Main OR ??? HERNIA REPAIR ??? [...] Description 05/11/2023 1:30 PM CDT Virtual Visit [address] [place] [phone] Evaristo Stack CNP [address] [place] [address] 130 [place] [address] Nallely Saravia MD [address] [place], [place] [phone] Scheduled Orders Name Type Priority Associated Diagnoses Orde r Schedule CBC with platelets Lab Routine Other iron deficiency anemia Expected: 11/10/2022 (Approximate), Expires: 07/22/2023 Ferritin Lab Routine Other iron deficiency anemia Expected: 11/10/2022 (Approximate), Expires: 07/22/2023 documented as of this encounter Visit Diagnoses Diagnosis Other iron deficiency anemia- Primary documented in this encounter Care Teams Eating Disorder Psychologist Relationship Specialty Start Date End Date Anthony Mazariegos MD [address] [facility] [address] [place] [address] PCP - General Cardiovascular Disease 01/14/22 3 [place] [address] [place] [address] [place] [address] Hematology 02/07/22 Anthony Leyva MD [address] [place] [address] Gastroenterology 02/07/[address] TRAIN DRIVER [address] [place] [address] Assigned Cancer Care Provider 04/05/22 07/25/22 Anthony Leyva MD [address] [place] [address] Assigned Gastroenterology Provider 04/12/[address] TRAIN DRIVER [address] [facility], [address] [place] [address] Assigned Heart and Vascular Provider 05/17/22 07/18/22 documented as of this encounter
--- OUTSIDE RECORDS SUMMARY | 2023-04-01 08:43 | XMS_ITS | Encounter Summary ---
Author Name Unknown Organization [place] Address [address] [place] [address] Care Team Providers Care Sustainable Products Marketing Manager Name Role Phone Anthony Mazariegos MD Primary Care Provider [phone] Emmanuel Nobles MD Unavailable [phone] Anthony Leyva MD Unavailable + [phone] Anthony Mazariegos MD Unavailable [phone] Reason for Referral * Diagnostic Imaging Ultrasound (Routine) - Pending Review Specialty Diagnoses / Procedures Referred By Contac t Referred To Contact Diagnoses Cirrhosis of liver without ascites, unspecified hepatic cirrhosis type (H) Procedures US Abdomen Complete w Doppler Complete Anthony Leyva MD [address] [place] [address] Referral ID Status Reason Start Date Expiration Date V isits Requested Visits Authorized [id number] Pending Review 04/03/2022 04/03/2023 1 1 ER AND PRESSER Reason for Visit * Reason Comments Video Visit * Consultation (Routine) - Closed Specialty Diagnoses / Procedures Referred By Contac t Referred To Contact Gastroenterology Diagnoses Cirrhosis of liver without ascites, unspecified hepatic cirrhosis type (H) Emmanuel Nobles MD [address] [place] [address] Referral ID Status Reason Start Date Expiration Date Visits Re quested Visits Authorized [id number] Closed 02/05/2022 02/05/2023 1 1 Encounter Details Date Type Department Care Team (Late st Contact Info) Description 04/03/2022 9:30 AM CUTTER AND PRESSER Virtual Visit [facility] [address] [address] Emmanuel Nobles MD [address] [place] [address] Anthony Leyva MD [address] [place] [address] Abnormal liver diagnostic imaging (Primary Dx); Cirrhosis [...] Coronavirus/COVID-19? No / Unsure 04/02/2022 9:40 AM CUTTER AND PRESSER documented as of this encounter Progress Notes * Anthony Leyva MD - 04/03/2022 9:30 AM CST Tutu is a 81 year old who is being evaluated via a billable video visit. How would you like to obtain your AVS? MyChart If the video visit is dropped, the invitation should be resent by: Send to e- mail at: [email or web address] Will anyone else be joining your video visit? Yes: Daughter Ngozi and Cally will be on. How would they like to receive their invitation? Send to e-mail at: [email or web address] Video-Visit Details Type of service: Video Visit [...] is really struggling. He was admitted to [facility] on December 12, 2021 with symptomatic severe iron deficiency anemia with shortness of breath. Beryl that he was dealing with volume overload [...] PLACEMENT; Surgeon: Jose Alberto Diallo MD; Location: [facility] Main OR ??? ESOPHAGOSCOPY, GASTROSCOPY, DUODENOSCOPY (EGD), COMBINED N/A 12/13/2021 Procedure: ESOPHAGOGASTRODUODENOSCOPY (EGD) WITH BIOPSIES; Surgeon: Jose Alberto Diallo MD; [facility]?? HERNIA REPAIR ??? left [...] to contact our office. Anthony Leyva M.D. Personal Development Educatormanager neonatal Advanced & Transplant Hepatology [facility] Approximately 35 minutes of non raax-bm-jdup time were spent in review of the patient's medical record on 04/02/22. This included review of previous: clinic visits, hospital records, lab results, imaging studies, and procedural documentation. The findings from this review are summarized in the above note. ER AND PRESSER documented in this encounter Plan of Treatment Upcoming Encounters Date Type Department Care Team (Late st Contact Info) Description 05/11/2023 1:30 PM CDT Virtual Visit [facility] [address] [facility] [address] [place] [address] Evaristo Stack CNP [address] [facility] [address] [place], [place] [phone] Nallely Saravia MD [address] [place], [place] [phone] documented as of this encounter Results * [...] US ABDOMEN COMPLETE WITH DOPPLER COMPLETE LOCATION: [facility] DATE/TIME: 05/12/2022 10:09 AM INDICATION: Screen for [...] US ABDOMEN COMPLETE WITH DOPPLER COMPLETE LOCATION: [facility] DATE/TIME: 05/12/2022 10:09 AM INDICATION: Screen for [...] (H) documented in this encounter Care Teams Sustainable Products Marketing Manager Relationship Specialty Start Date End Date Anthony Mazariegos MD [address] [facility] [address] [place] [address] PCP - General Cardiovascular Disease 01/14/22 3 Emmanuel Nobles MD [address] [place] [address] [place] [address] Hematology 02/07/22 Anthony Leyva MD [address] [place] [address] Gastroenterology 02/07/22 Anthony Mazariegos MD [address] [facility] [address] [place] [address] Assigned Heart and Vascular Provider 03/08/22 05/16/22 documented as of this encounter
--- OUTSIDE RECORDS SUMMARY | 2023-04-01 08:43 | XMS_ITS | Encounter Summary ---
Author Name Unknown Organization [place] Address [facility] [place] [address] Care Team Providers Care Car Repairer Apprentice Name Role Phone Anthony Mazariegos MD Primary Care Provider + [phone] Emmanuel Nobles MD Unavailable [phone] Anthony Leyva MD Unavailable + [phone] Anthony Mazariegos MD Unavailable [phone] Verona Mclain LAY OUT FORMER DANDY OPERATOR Unavailable [phone] Anthony Leyva MD Unavailable + [phone] Encounter Details Date Type Department Care Team [...] Description 05/11/2023 1:30 PM CDT Virtual Visit [address] [place] [address] Evaristo Stack CNP 1875 [facility] 130 [place], [place] [phone] Nallely Saravia MD 1575 [place], [place] [phone] documented as of this encounter Visit Diagnoses Not on filedocumented in this encounter Care Teams Car Repairer Apprentice Relationship Specialty Start Date End Date Anthony Mazariegos MD 1600 [facility] 200 [place], [place] [phone] PCP - General Cardiovascular Disease 01/14/22 3 Emmanuel Nobles MD [facility]5 [place] [address] Hematology 02/07/22 Anthony Leyva MD [address] [place] [address] Gastroenterology 02/07/22 Anthony Mazariegos MD 1600 [facility] 200 [place] [address] Assigned Heart and Vascular Provider 03/08/22 05/16/22 Verona Mclain APRN DANDY OPERATOR [address] [place] [address] Assigned Cancer Care Provider 04/05/22 07/25/22 Anthony Leyva MD [address] [place] [address] Assigned Gastroenterology Provider 04/12/22 documented as of this encounter
--- OUTSIDE RECORDS SUMMARY | 2023-04-01 08:43 | XMS_ITS | Encounter Summary ---
Author Name Unknown Organization [place] Address [facility] [place] [address] Care Team Providers Care Horse Groomer Name Role Phone Anthony Mazariegos MD Primary Care Provider [phone] Emmanuel Nobles MD Unavailable [phone] Anthony Leyva MD Unavailable [phone] Verona Mclain APPLIANCE ASSEMBLER LAB PACK CHEMIST Unavailable Anthony Leyva MD Unavailable + [phone] Shaila Mota APRN LAB PACK CHEMIST Unavailable Evaristo Stack LAB PACK CHEMIST Unavailable [phone] Anthony Mazariegos MD Unavailable [phone] Shaila Mota APRN LAB PACK CHEMIST Unavailable Encounter Details Date Type Department Care Team (Late st Contact Info) Description 05/21/2022 Telephone [facility] 1875 [facility] [address] [place] [address] Stephanie Burnham Social History Tobacco [...] 05/11/2023 1:30 PM CDT Virtual Visit [address] [place] [phone] Evaristo Stack CNP 1875 [facility] [address] [place], [place] [phone] Nallely Saravia MD 1575 [place], [place] [phone] documented as of this encounter Visit Diagnoses Not on filedocumented in this encounter Care Teams Horse Groomer Relationship Specialty Start Date End Date Anthony Mazariegos MD 1600 [facility] [address] [place], [place] [phone] PCP - General Cardiovascular Disease 01/14/22 3 Emmanuel Nobles MD [facility]5 [facility] [place], [place] [phone] Hematology 02/07/22 Anthony Leyva MD [address] [place] [address] Gastroenterology 02/07/22 Verona Mclain APRN LAB PACK CHEMIST 1575 [place] [address] Assigned Cancer Care Provider 04/05/22 07/25/22 Anthony Leyva MD [address] [place] [address] Assigned Gastroenterology Provider 04/12/22 Shaila Mota APRN LAB PACK CHEMIST 1600 [facility], [address] [place] [address] Assigned Heart and Vascular Provider 05/17/22 07/18/22 [facility] [address] [place] [address] Assigned Cancer Care Provider 07/26/22 Anthony Mazariegos MD 1600 [facility] [address] [place], [place] [phone] Assigned Heart and Vascular Provider 07/19/22 09/19/22 Shaila Mota APRN LAB PACK CHEMIST 1600 [facility], [address] [place], [place] [phone] Assigned Heart and Vascular Provider 09/20/22 01/16/23 documented as of this encounter
--- OUTSIDE RECORDS SUMMARY | 2023-04-01 08:43 | XMS_ITS | Encounter Summary ---
Author Name Unknown Organization [place] Address [address]50 [facility] [place] [address] Care Team Providers Care Dairy Feed Worker Name Role Phone Anthony Mazariegos MD Primary Care Provider Emmanuel Nobles MD Unavailable [phone] Anthony Leyva MD Unavailable [phone] Anthony Mazariegos MD Unavailable [phone] Reason for Visit * Reason Comments Hematology Anemia, iron deficie ncy; Iron deficiency anemia due to chronic blood loss Encounter Details Date Type Department Care Team (Late st Contact Info) Description 04/04/2022 11:15 AM PROSPECT MANAGER Oncology Visit [address], [address] [place] [phone] Evaristo Stack, LANA 1875 [facility] [address] [place], [place] [phone] Verona Mclain APRN JANITORIAL ASSISTANT [address] [place], [place] [phone] Other iron deficiency anemia (Primary Dx); Myelodysplastic [...] Coronavirus/COVID-19? No / Unsure 04/04/2022 9:58 AM PROSPECT MANAGER documented as of this encounter Last Filed Vital Signs Vital Sign Reading Time Taken Comments Blood Pressure 129/72 04/04/2022 10:03 AM PROSPECT MANAGER Pulse 88 04/04/2022 10:03 AM PROSPECT MANAGER Temperature - - Respiratory Rate 16 04/04/2022 10:03 AM PROSPECT MANAGER Oxygen Saturation 94% 04/04/2022 10:03 AM PROSPECT MANAGER Inhaled Oxygen Concentration - - Weight 107.5 kg (237 lb) 04/04/2022 10:03 AM PROSPECT MANAGER Height 182.9 cm (6') 04/04/2022 10:03 AM PROSPECT MANAGER Body Mass Index 32.14 04/04/2022 10:03 AM PROSPECT MANAGER documented in this encounter Progress Notes * Verona Mclain APRN JANITORIAL ASSISTANT - 04/04/2022 11:15 AM CST [facility] Hematology and Oncology Progress Note Patient: [...] does live over 40 miles away in [place]. At this time I told him it would be totally appropriate to get his labs drawn at the [place] clinic and then faxed up to us before his appointment. He is meeting with his potato chip fryer in June so he would like to have an appointment on the same day. We will send lab orders, CBC, CMP, ferritin to the [place] lab so they will be drawn a [...] was drawn on April 01, 2022 at [facility]. Hemoglobin is 12.8, white blood cell count [...] minutes. Signed by: Verona Mclain APRN CNP PECT MANAGER * Silvia Quiles - 04/04/2022 11:15 AM CST Oncology Rooming Note April 04, 2022 10:16 AM Tutu Nog is a 81 year old male who [...] not needed today. Pharmacy name entered into Natanael Ulien: [facility], [place] - [address] [place] [address] Clinical concerns: labs results Silvia Quiles PECT MANAGER documented in this encounter Plan of Treatment Upcoming Encounters Date Type Department Care Team (Late st Contact Info) Description 05/11/2023 1:30 PM CDT Virtual Visit [address] [place] [address] Evaristo Stack, JANITORIAL ASSISTANT [address] [facility] [address] [place] [address] Nallely Saravia MD [address] [place] [address] Scheduled Orders Name Type Priority [...] - 145 mmol/L 07/17/2022 2:10 PM CDT [facility] Potassium 3.6 3.5 - 5.0 mmol/L 07/17/2022 2:10 PM CDT [facility] Chloride 97(L) 98 - 107 mmol/L 07/17/2022 2:10 PM CDT [facility] Carbon Dioxide (CO2) 31 22 - 31 mmol/L 07/17/2022 2:10 PM CDT [facility] Anion Gap 10 5 - 18 mmol/L 07/17/2022 2:10 PM CDT [facility] Urea Nitrogen 44(H) 8 - 28 mg/dL 07/17/2022 2:10 PM CDT [facility] Creatinine 2.32(H) 0.70 - 1.30 mg/dL 07/17/2022 2:10 PM CDT [facility] Calcium 10.2 8.5 - 10.5 mg/dL 07/17/2022 2:10 PM CDT [facility] Glucose 92 70 - 125 mg/dL 07/17/2022 2:10 PM CDT [facility] Alkaline Phosphatase 90 45 - 120 U/L 07/17/2022 2:10 PM CDT [facility] AST 21 0 - 40 U/L 07/17/2022 2:10 PM CDT [facility] ALT 22 0 - 45 U/L 07/17/2022 2:10 PM CDT [facility] Protein Total 7.7 6.0 - 8.0 g/dL 07/17/2022 2:10 PM CDT [facility] Albumin 3.9 3.5 - 5.0 g/dL 07/17/2022 2:10 PM CDT [facility] Bilirubin Total 0.6 0.0 - 1.0 mg/dL 07/17/2022 2:10 PM CDT [facility] GFR Estimate 28(L) >60 mL/min/1.7 3m2 07/17/2022 2:10 PM CDT [facility] Comment:eGFR calculated usin 2020 CKD-EPI equation. Blood BLOOD SPECIMEN / Unknown Venipuncture / Unknown 07/17/2022 1:36 PM CDT 07/17/2022 1:46 PM CDT Verona Mclain APRN JANITORIAL ASSISTANT LAB - BLOOD O RDERABLES [facility] [address] [facility] [place], [place] [phone] [place] [address] * Ferritin (07/17/2022 1:36 PM CDT) Pathologist [facility] Ferritin 116 31 - 409 ng/mL 07/17/2022 9:12 PM CDT [facility] Blood BLOOD SPECIMEN / Unknown Venipuncture / Unknown 07/17/2022 1:36 PM CDT 07/17/2022 1:46 PM CDT Verona Mclain APRN JANITORIAL ASSISTANT LAB - BLOOD O RDERABLES [facility] [address] [facility] [address] Building, Room [address] [place] [address], [facility] [phone] documented in this encounter Visit Diagnoses Diagnosis Other iron deficiency anemia- Primary Myelodysplastic syndrome (H) Myelodysplastic syndrome, unspecified documented in this encounter Care Teams Dairy Feed Worker Relationship Specialty Start Date End Date Anthony Mazariegos MD 1600 [facility] 200 [place] [address] PCP - General Cardiovascular Disease 01/14/22 3 Emmanuel Nobles MD [address] [place] [address] [place] [address] Hematology 02/07/22 Anthony Leyva MD [address] [place] [address] Gastroenterology 02/07/22 Anthony Mazariegos MD 1600 [facility] 200 [place] [address] Assigned Heart and Vascular Provider 03/08/22 05/16/22 documented as of this encounter
--- OUTSIDE RECORDS SUMMARY | 2023-04-01 08:43 | XMS_ITS | Encounter Summary ---
Author Name Unknown Organization [place] Address 2450 [facility] [address] Care Team Providers Care Manager Scheduling Name Role Phone Anthony Mazariegos MD Primary Care Provider + [phone] Emmanuel Nobles MD Unavailable [phone] Anthony Leyva MD Unavailable + [phone] Anthony Mazariegos MD Unavailable [phone] Encounter Details Date Type Department Care Team [...] Coronavirus/COVID-19? No / Unsure 04/02/2022 9:40 AM LOG CLERK documented as of this encounter Plan of Treatment Upcoming Encounters Date Type Department Care Team (Late st Contact Info) Description 05/11/2023 1:30 PM CDT Virtual Visit [place] [id number] [facility] [address] [place] [address] Evaristo Stack, LANA [address] [place] [address] [address] [place] [address] Nallely Saravia MD [address] [place] [address] documented as of this encounter Visit Diagnoses Not on filedocumented in this encounter Care Teams Manager Scheduling Relationship Specialty Start Date End Date Anthony Mazariegos MD 1600 [facility] 200 [place] [address] PCP - General Cardiovascular Disease 01/14/22 3 [place] [address] [place] [address] [place] [address] Hematology 02/07/22 Anthony Leyva MD [address] [place] [address] Gastroenterology 02/07/22 Anthony Mazariegos MD 1600 [facility] 200 [place] [address] Assigned Heart and Vascular Provider 03/08/22 05/16/22 documented as of this encounter
--- OUTSIDE RECORDS SUMMARY | 2023-04-01 08:43 | XMS_ITS | Encounter Summary ---
Author Name Unknown Organization [place] Address 2450 [facility] [place] [address] Care Team Providers Care Cement Finisher Name Role Phone Anthony Mazariegos MD Primary Care Provider Emmanuel Nobles MD Unavailable [phone] Anthony Leyva MD Unavailable + [phone] Anthony Mazariegos MD Unavailable [phone] Verona Mclain COMPUTER SUPPORT ANALYST FIRST LINE PRODUCTION SUPERVISOR Unavailable Anthony Leyva MD Unavailable + [phone] Encounter Details Date Type Department Care Team (Late st Contact Info) Description 05/12/2022 Orders Only [facility] 5 [place] [phone] Alie Ndiaye Chronic heart failure with preserved [...] Visit [facility] [address] [place] [phone] Evaristo Stack, FIRST LINE PRODUCTION SUPERVISOR 1875 [facility] [address] [place], [place] [phone] Nallely Saravia MD [address] [place], [place] [phone] Scheduled Orders Name Type Priority Associated Diagnoses [...] - 145 mmol/L 05/12/2022 9:[address] [facility] Potassium 3.6 3.5 - 5.0 mmol/L 05/12/2022 9:[address] [facility] Chloride 97(L) 98 - 107 mmol/L 05/12/2022 9:[address] [facility] Carbon Dioxide (CO2) 28 22 - 31 mmol/L 05/12/2022 9:[address] [facility] Anion Gap 14 5 - 18 mmol/L 05/12/2022 9:49 [address] CD[address] [facility] Urea Nitrogen 41(H) 8 - 28 mg/dL 05/12/2022 9:49 [address] CD[address] [facility] Creatinine 2.20(H) 0.70 - 1.30 mg/dL 05/12/2022 9:49 [address] [facility] Calcium 10.4 8.5 - 10.5 mg/dL 05/12/2022 9:49 AM CD[address] [facility] Glucose 102 70 - 125 mg/dL 05/12/2022 9:[address] [facility] GFR Estimate 30(L) >60 mL/min/1.7 3m2 05/12/2022 9:49 AM CDT [facility] Comment:eGFR calculated usin 2020 CKD-EPI equation. Blood STRUCTURE OF LEFT UPPER LIMB / Unknown Venipuncture / Unknown 05/12/2022 9:30 AM CDT 05/12/2022 9:32 AM CDT Anthony Mazariegos MD LAB - BLOOD ORDERABL ES [facility] [address] [facility] [address] [place] [address] [phone] documented in this encounter Visit Diagnoses Diagnosis Chronic heart failure with preserved ejection fraction (H)- Primary Hypokalemia Hypopotassemia documented in this encounter Care Teams Cement Finisher Relationship Specialty Start Date End Date Anthony Mazariegos MD 1600 [facility] [address] [place] [address] PCP - General Cardiovascular Disease 01/14/22 3 Emmanuel Nobles MD [address] [place] [address] Hematology 02/07/22 Anthony Leyva MD 909 [place] [address] Gastroenterology 02/07/22 Anthony Mazariegos MD 1600 [facility] [address] [place] [address] Assigned Heart and Vascular Provider 03/08/22 05/16/22 Verona Mclain APRN FIRST LINE PRODUCTION SUPERVISOR [address] [place] [address] Assigned Cancer Care Provider 04/05/22 07/25/22 Anthony Leyva MD 9 [place] [address] Assigned Gastroenterology Provider 04/12/22 documented as of this encounter
--- OUTSIDE RECORDS SUMMARY | 2023-04-01 08:43 | XMS_ITS | Encounter Summary ---
Author Name Unknown Organization [place] Address [address] [place] [address]. [place] [address] Care Team Providers Care Welder Tool And Die Name Role Phone Anthony Mazariegos MD Primary Care Provider + [phone] Emmanuel Nobles MD Unavailable [phone] Anthony Leyva MD Unavailable + [phone] Anthony Mazariegos MD Unavailable [phone] Reason for Visit * Reason Onset Date Comments *-*INCOMING RECORDS*-* 04/03/2022 Encounter Details Date Type Department Care Team (Late st Contact Info) Description 04/03/2022 PRE VISIT [facility] [address] [address] Anthony Leyva MD [address] [place] [address] *-*INCOMING RECORDS*-* Social History Tobacco Use [...] DNA QUANT LEVEL HEPATITIS B CORE ANTIBODY DEVELOPER PROGRAMMER documented in this encounter Plan of Treatment Upcoming Encounters Date Type Department Care Team (Late st Contact Info) Description 05/11/2023 1:30 PM CDT Virtual Visit [facility] [address] [place] [address] [address] [place] [address] Evaristo Stack, LANA 1875 [facility] 130 [place], [place] [phone] Nallely Saravia MD [address] [place], [place] [phone] documented as of this encounter Visit Diagnoses Not on filedocumented in this encounter Care Teams Welder Tool And Die Relationship Specialty Start Date End Date Anthony Mazariegos MD [address] [facility] 200 [place], [place] [phone] PCP - General Cardiovascular Disease 01/14/22 3 Emmanuel Nobles MD 1825 [facility] [place], [place] [phone] Hematology 02/07/22 Anthony Leyva MD 909 [place] [address] Gastroenterology 02/07/22 Anthony Mazariegos MD 1600 [facility] [address] 200 [place] [address] Assigned Heart and Vascular Provider 03/08/22 05/16/22 documented as of this encounter
--- OUTSIDE RECORDS SUMMARY | 2023-04-01 08:43 | XMS_ITS | Encounter Summary ---
Author Name Unknown Organization [place] Address [address] [place] [address]. [place] [address] Care Team Providers Care Business Architect Name Role Phone Anthony Mazariegos MD Primary Care Provider [phone] Emmanuel Nobles MD Unavailable [phone] Anthony Leyva MD Unavailable [phone] Verona Mclain CONTROL SYSTEM COMPUTER SCIENTIST HIRED WORKER Unavailable Anthony Leyva MD Unavailable [phone] Shaila Mota CONTROL SYSTEM COMPUTER SCIENTIST HIRED WORKER Unavailable Reason for Visit * Reason Comments Medication Refill Encounter Details Date Type Department Care Team (Late st Contact Info) Description 06/17/2022 Refill [facility] Gunpowder 1600 [facility] [address] [place] [address] Anthony Mazariegos MD 1600 [facility] [address] 200 [place], [place] [phone] Medication Refill Social History Tobacco Use Types [...] CDT Virtual Visit [facility] 1875 [facility] [address] [place] [phone] Evaristo Stack CNP 1875 [facility] 130 [place], [place] [phone] Nallely Saravia MD [address]75 [place] [address] documented as of this encounter Visit Diagnoses Diagnosis Hypokalemia Hypopotassemia documented in this encounter Care Teams Business Architect Relationship Specialty Start Date End Date Anthony Mazariegos MD [address] [place] [address] 200 [place] [address] PCP - General Cardiovascular Disease 01/14/22 3 Emmanuel Nobles MD 1825 [facility] [place], [place] [phone] Hematology 02/07/22 Anthony Leyva MD [address] [place] [address] Gastroenterology 02/07/22 Verona Mclain APRN HIRED WORKER [address] [place] [address] Assigned Cancer Care Provider 04/05/22 07/25/22 Anthony Leyva MD [address] [place] [address] Assigned Gastroenterology Provider 04/12/22 Shaila Mota APRN HIRED WORKER 1600 [facility], [address] [place] [address] Assigned Heart and Vascular Provider 05/17/22 07/18/22 documented as of this encounter
--- OUTSIDE RECORDS SUMMARY | 2023-04-01 08:43 | XMS_ITS | Encounter Summary ---
Author Name Unknown Organization [place] Address [address]50 [facility] [place] [address] Care Team Providers Care Closer On Name Role Phone Anthony Mazariegos MD Primary Care Provider Emmanuel Nobles MD Unavailable [phone] Anthony Leyva MD Unavailable [phone] Verona Mclain MAINTENANCE TEAM LEADER HOSPITAL TRAY SERVICE WORKER Unavailable Anthony Leyva MD Unavailable [phone] Shaila Mota MAINTENANCE TEAM LEADER HOSPITAL TRAY SERVICE WORKER Unavailable Evaristo Stack HOSPITAL TRAY SERVICE WORKER Unavailable Anthony Mazariegos MD Unavailable [phone] Shaila Mota APRN HOSPITAL TRAY SERVICE WORKER Unavailable Emil Cope MD Primary Care Provider Anthony Mazariegos MD Unavailable [phone] Encounter Details Date Type Department Care Team (Late st Contact Info) Description 05/30/2022 [facility] Heart [facility] 1600 [facility] [address] [place] [address] Unknown, Provider Social History Tobacco [...] Virtual Visit [facility] [address] [facility] [address] [place] [address] Evaristo Stack, LANA 1875 [facility] [address] [place], [place] [phone] Nallely Saravia MD [address]75 [place], [place] [phone] documented as of this encounter Procedures Procedure Name Priority Date/Time Associated Diagnosis Comments LAB RESULT - HIM SCAN Routine 05/30/2022 documented in this encounter Results * Lab Result - HIM Scan (05/30/2022) Provider Unknown MH NON-BEAKER LAB TE STING documented in this encounter Visit Diagnoses Not on filedocumented in this encounter Care Teams Closer On Relationship Specialty Start Date End Date Anthony Mazariegos MD 1600 [facility] 200 [place] [address] PCP - General Cardiovascular Disease 01/14/22 3 Emil Cope MD [facility] 1999 [place] [address] PCP - General Emergency Medicine 09/30/22 Emmanuel Nobles MD [address]25 [facility] [place] [address] Hematology 02/07/22 Anthony Leyva MD 909 [place] [address] Gastroenterology 02/07/22 Verona Mclain APRN HOSPITAL TRAY SERVICE WORKER [address] [place] [address] Assigned Cancer Care Provider 04/05/22 07/25/22 Anthony Leyva MD 909 [place] [address] Assigned Gastroenterology Provider 04/12/22 Shaila Mota APRN HOSPITAL TRAY SERVICE WORKER [address] [place] [address] Assigned Heart and Vascular Provider 05/17/22 07/18/22 Evaristo Stack, LANA [facility] Julia Cortez [address] [address] Assigned Cancer Care Provider 07/26/22 Anthony Mazariegos MD [address] [place] [address] Assigned Heart and Vascular Provider 07/19/22 09/19/22 Shaila Mota APRN HOSPITAL TRAY SERVICE WORKER [address] [place] [address] Assigned Heart and Vascular Provider 09/20/22 01/16/23 Anthony Mazariegos MD [address] [place] [address] 200 [place] [address] Assigned Heart and Vascular Provider 01/17/23 documented as of this encounter
--- OUTSIDE RECORDS SUMMARY | 2023-04-01 08:43 | XMS_ITS | Encounter Summary ---
Author Name Unknown Organization [place] Address [facility] [place] [address] Care Team Providers Care Junior Automation Engineer Name Role Phone Anthony Mazariegos MD Primary Care Provider Emmanuel Nobles MD Unavailable [phone] Anthony Leyva MD Unavailable [phone] Anthony Mazariegos MD Unavailable Verona Mclain APRN PIPE ORGAN BUILDER Unavailable Anthony Leyva MD Unavailable + [phone] Reason for Referral * Consultation (Routine: Next available opening) - Pending Review Specialty Diagnoses / Procedures Referred By Contac t Referred To Contact Cardiovascular Disease Diagnoses Chronic heart failure with preserved ejection fraction (H) Shaila Mota APRN PIPE ORGAN BUILDER [address] [facility], [address] [place] [address] Referral ID Status Reason Start Date Expiration Date V isits Requested Visits Authorized [id number] Pending Review 05/12/2022 05/12/2023 1 1 Question Answer Follow-up with: Self Scheduling Instructions: [facility] will call you to coordinate your care as prescribed by your provider. If you have concerns about scheduling, please call [phone]. Comments [facility] will call you to coordinate your care as prescribed by your provider. If you have concerns about scheduling, please call [phone]. Reason for Visit * Reason Comments Follow Up * Consultation (Routine: Next available opening) - Closed Specialty Diagnoses / Procedures Referred By Madeleine watters Referred To Contact Cardiovascular Disease Diagnoses Chronic heart failure with preserved ejection fraction (H) Shaila Mota APRN PIPE ORGAN BUILDER [address] [facility], [address] [place] [address] Referral ID Status Reason Start Date Expiration Date Visits Re quested Visits Authorized [id number] Closed 02/03/2022 02/03/2023 1 1 Encounter Details Date Type Department Care Team (Late st Contact Info) Description 05/12/2022 12:50 PM CDT Office Visit [facility] [address] [facility] [address] [place] [phone] Shaila Mota, TOYA PIPE ORGAN BUILDER [address] [facility], [address] [place], [place] [id number] Chronic heart failure with preserved ejection fraction [...] a pleasure to see you today at [facility]. My recommendations after this visit include: [...] does not I recommend he see a die developer Plan: 1. Increase Eliquis to 5 mg [...] a 81 year old male seen at [facility] heart failure clinic today for continued follow-up. [...] clubbing Skin: no xanthelasma, warm. Neurologic: normal tie presser bilateral, no tremors Psychiatric: alert and oriented [...] PLACEMENT; Surgeon: Jose Alberto Diallo MD; Location: [facility] Main OR ??? ESOPHAGOSCOPY, GASTROSCOPY, DUODENOSCOPY (EGD), COMBINED N/A 12/13/2021 Procedure: ESOPHAGOGASTRODUODENOSCOPY (EGD) WITH BIOPSIES; Surgeon: Jose Alberto Diallo MD; Location: [facility] Main OR ??? HERNIA REPAIR ??? [...] Other Topics Concern ??? Parent/sibling w/ CABG, [place] or angioplasty before [...] PM CDT Virtual Visit [facility] [address] [facility] [address] [place] [address] Evaristo Stack CNP [address] [place] [address] [address] [place], [place] [phone] Nallely Saravia MD [address] [place], [place] [phone] Scheduled Referrals Name Type Priority Associated Diagnoses [...] failure documented in this encounter Care Teams Junior Automation Engineer Relationship Specialty Start Date End Date Anthony Mazariegos MD [address] [facility] [address] [place] [address] PCP - General Cardiovascular Disease 01/14/22 3 [place] [address] [place] [address] [place] [address] Hematology 02/07/22 Anthony Leyva MD [address] [place] [address] Gastroenterology 02/07/22 Anthony Mazariegos MD [address] [facility] [address] [place] [address] Assigned Heart and Vascular Provider 03/08/22 05/16/22 Verona Mclain APRN PIPE ORGAN BUILDER [address] [place] [address] Assigned Cancer Care Provider 04/05/22 07/25/22 Anthony Levya MD [address] [place] [address] Assigned Gastroenterology Provider 04/12/22 documented as of this encounter
--- OUTSIDE RECORDS SUMMARY | 2023-04-01 08:43 | XMS_ITS | Encounter Summary ---
Author Name Unknown Organization [place] Address [facility] [place] [address] Care Team Providers Care Evaporator Operator Name Role Phone Anthony Mazariegos MD Primary Care Provider [phone] Emmanuel Nobles MD Unavailable [phone] Anthony Leyva MD Unavailable [phone] Verona Mclain SETTER MACHINE ONLINE FACILITATOR Unavailable Anthony Leyva MD Unavailable [phone] Shaila Mota SETTER MACHINE ONLINE FACILITATOR Unavailable Reason for Referral * Consultation (Routine: [...] ejection fraction (H) Anthony Mazariegos MD [address] [facility] [address] [place] [address] Referral ID Status Reason Start Date Expiration Date V isits Requested Visits Authorized [id number] Pending Review 07/17/2022 07/17/2023 1 1 Question Answer Preferred Location: [facility] Follow-up with: Self Scheduling Instructions: [facility] will call you to coordinate your care as prescribed by your provider. If you have concerns about scheduling, please call [phone]. Comments [facility] will call you to coordinate your care as prescribed by your provider. If you have concerns about scheduling, please call [phone]. Reason for Visit * Reason Comments Follow [...] ejection fraction (H) Anthony Mazariegos MD [address] [facility] [address] [place] [address] Referral ID Status Reason Start Date Expiration Date Visits Re quested Visits Authorized [id number] Closed 03/07/2022 03/07/2023 1 1 Encounter Details Date Type Department Care Team (Late st Contact Info) Description 07/17/2022 3:50 PM CDT Office Visit [facility] [place] [id number] [facility] [address] [place] [phone] Anthony Mazariegos MD [address] [facility] [address] [place] [address] Acute on chronic diastolic heart [...] from the original note were not included. [facility] [phone] Assessment/Recommendations Patient with heart failure with preserved [...] decrease his diuretics as well. 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 He will be followed up in our heart failure clinic in August and I will see him in the fall. Thank you for allowing us to participate in his care. 40 minutes spent with chart review, patient visit, documentation and shipping order clerk. History of Present Illness/Subjective Mr. Tutu Ngo [...] cooperative and in no acute distress. ENT/Mouth: [place]/moist oral mucosa EYES: no scleral icterus, normal [...] Other Topics Concern ??? Parent/sibling w/ CABG, [place] or angioplasty before 65F 55M? Not Asked [...] 05/11/2023 1:30 PM CDT Virtual Visit [facility] [address] [facility] [address] [place] [address] Evaristo Stack, LANA [address] [facility] [address] [place] [address] Nallely Saravia MD [address] [place] [address] Scheduled Referrals Name Type Priority [...] (H) documented in this encounter Care Teams Evaporator Operator Relationship Specialty Start Date End Date Anthony Mazariegos MD [address] [facility] [address] [place] [address] PCP - General Cardiovascular Disease 01/14/22 3 [place] [address] [place] [address] [place] [address] Hematology 02/07/22 Anthony Leyva MD [address] [place] [address] Gastroenterology 02/07/22 Verona Mclain APRN ONLINE FACILITATOR [address] [place] [address] Assigned Cancer Care Provider 04/05/22 07/25/22 Anthony Leyva MD [address] [place] [address] Assigned Gastroenterology Provider 04/12/22 Shaila Mota APRN ONLINE FACILITATOR [address] [facility], [address] [place], [place] [phone] Assigned Heart and Vascular Provider 05/17/22 07/18/22 documented as of this encounter
--- OUTSIDE RECORDS SUMMARY | 2023-04-01 08:43 | XMS_ITS | Encounter Summary ---
Author Name Unknown Organization [place] Address [facility]0 [facility] [place] [address] Care Team Providers Care Retail Sales Assistant Name Role Phone Anthony Mazariegos MD Primary Care Provider [phone] Emmanuel Nobles MD Unavailable [phone] Anthony Leyva MD Unavailable + [phone] Anthony Mazariegos MD Unavailable [phone] Verona Mclain PROCESS TREATER AUTOMOTIVE MACHINIST Unavailable Anthony Leyva MD Unavailable + [phone] Encounter Details Date Type Department Care Team (Late st Contact Info) Description 04/21/2022 Orders Only [facility] [place] [address] [facility] [address] [place] [address] Yajaira Mclaughlin, RN Hypokalemia Social History Tobacco [...] Coronavirus/COVID-19? No / Unsure 04/04/2022 9:58 AM INTERNAL CONTROLS MANAGER documented as of this encounter Plan of Treatment Upcoming Encounters Date Type Department Care Team (Late st Contact Info) Description 05/11/2023 1:30 PM CDT Virtual Visit [facility] [address] [place] [phone] Evaristo Stack, AUTOMOTIVE MACHINIST [address] [place], [place] [phone] Nallely Saravia MD [address] [place], [place] [id number] documented as of this encounter Results * (ABNORMAL) Basic metabolic panel (05/12/2022 9:30 AM CDT) Sodium 139 136 - 145 mmol/L 05/12/2022 9:49 AM [facility] Potassium 3.6 3.5 - 5.0 mmol/L 05/12/2022 9:49 AM [facility] Chloride 97(L) 98 - 107 mmol/L 05/12/2022 9:49 AM [facility] Carbon Dioxide (CO2) 28 22 - 31 mmol/L 05/12/2022 9:49 AM [facility] Anion Gap 14 5 - 18 mmol/L 05/12/2022 9:49 AM [facility] Urea Nitrogen 41(H) 8 - 28 mg/dL 05/12/2022 9:49 AM [facility] Creatinine 2.20(H) 0.70 - 1.30 mg/dL 05/12/2022 9:49 AM [facility] Calcium 10.4 8.5 - 10.5 mg/dL 05/12/2022 9:49 AM [facility] Glucose 102 70 - 125 mg/dL 05/12/2022 9:49 AM [facility] GFR Estimate 30(L) >60 mL/min/1.7 3m2 05/12/2022 9:49 AM [facility] Comment:eGFR calculated usin g 2020 CKD-EPI equation. Blood STRUCTURE OF LEFT UPPER LIMB / Unknown Venipuncture / Unknown 05/12/2022 9:30 AM CDT 05/12/2022 9:32 AM CDT Anthony Mazariegos MD LAB - BLOOD ORDERABL ES [facility] [address] [place] [address] [phone] documented in this encounter Visit Diagnoses Diagnosis Hypokalemia Hypopotassemia documented in this encounter Care Teams Retail Sales Assistant Relationship Specialty Start Date End Date Anthony Mazariegos MD [address] [facility] 200 [place] [address] PCP - General Cardiovascular Disease 01/14/22 3 Emmanuel Nobles MD [address] [place] [address] Hematology 02/07/22 Anthony Leyva MD [address] [place] [address] Gastroenterology 02/07/22 Anthony Mazariegos MD [address] [facility] 200 [place] [address] Assigned Heart and Vascular Provider 03/08/22 05/16/22 Verona Mclain APRN AUTOMOTIVE MACHINIST [address] [place] [address] Assigned Cancer Care Provider 04/05/22 07/25/22 Anthony Leyva MD [address] [place] [address] Assigned Gastroenterology Provider 04/12/22 documented as of this encounter
--- OUTSIDE RECORDS SUMMARY | 2023-04-01 08:43 | XMS_ITS | Encounter Summary ---
Author Name Unknown Organization [place] Address [address] [facility] [place] [address] Care Team Providers Care Theatrical Dresser Name Role Phone Anthony Mazariegos MD Primary Care Provider [phone] Emmanuel Nobles MD Unavailable [phone] Anthony Leyva MD Unavailable + [phone] Anthony Mazariegos MD Unavailable [phone] Encounter Details Date Type Department Care Team [...] Coronavirus/COVID-19? No / Unsure 04/04/2022 9:58 AM LATIN AMERICAN STUDIES DIRECTOR documented as of this encounter Plan of Treatment Upcoming Encounters Date Type Department Care Team (Late st Contact Info) Description 05/11/2023 1:30 PM CDT Virtual Visit [place] [id number] [facility] [address] [place] [address] Evaristo Stack, LANA [address] [place] [address] [address] [place] [address] Nallely Saravia MD [address] [place] [address] documented as of this encounter Visit Diagnoses Not on filedocumented in this encounter Care Teams Theatrical Dresser Relationship Specialty Start Date End Date Anthony Mazariegos MD [address] [facility] 200 [place] [address] PCP - General Cardiovascular Disease 01/14/22 3 [place] [address] [place] [address] [place] [address] Hematology 02/07/22 Anthony Leyva MD [address] [place] [address] Gastroenterology 02/07/22 Anthony Mazariegos MD [address] [facility] 200 [place] [address] Assigned Heart and Vascular Provider 03/08/22 05/16/22 documented as of this encounter
--- OUTSIDE RECORDS SUMMARY | 2023-04-01 08:43 | XMS_ITS | Encounter Summary ---
Author Name Unknown Organization [place] Address [facility]0 [facility] [place] [address] Care Team Providers Care Business Writer Name Role Phone Anthony Mazariegos MD Primary Care Provider [phone] Emmanuel Nobles MD Unavailable [phone] Anthony Leyva MD Unavailable [phone] Verona Mclain WIRE SPINNER DIETARY AIDE COOK Unavailable Anthony Leyva MD Unavailable [phone] Shaila Mota WIRE SPINNER DIETARY AIDE COOK Unavailable Evaristo Stack DIETARY AIDE COOK Unavailable Anthony Mazariegos MD Unavailable Shaila Mota APRN DIETARY AIDE COOK Unavailable Emil Cope MD Primary Care Provider Anthony Mazariegos MD Unavailable [phone] Reason for Visit * Reason Comments Medication Refill Encounter Details Date Type Department Care Team (Late st Contact Info) Description 05/17/2022 Refill [facility] [address] [facility] [address] [place] [address] Anthony Mazariegos MD [address] [facility] 200 [place] [address] Medication Refill Social History Tobacco [...] Description 05/11/2023 1:30 PM CDT Virtual Visit [address] [place] [phone] Evaristo Stack, DIETARY AIDE COOK [address] [place] [address] [address] [place] [address] Nallely Saravia MD [address] [place], [place] [phone] documented as of this encounter Visit Diagnoses Diagnosis Acute on chronic diastolic heart failure (H) Acute on chronic diastolic heart failure Stage 3 chronic kidney disease, unspecified whether stage 3a or 3b CKD (H) Essential hypertension Unspecified essential hypertension documented in this encounter Care Teams Business Writer Relationship Specialty Start Date End Date Anthony Mazariegos MD [address] [facility] 200 [place] [address] PCP - General Cardiovascular Disease 01/14/22 3 Emil Cope MD [facility] [address] [place] [address] PCP - General Emergency Medicine 09/30/22 Emmanuel Nobles MD [address] [place] [address] Hematology 02/07/22 Anthony Leyva MD [address] [place] [address] Gastroenterology 02/07/22 Verona Mclain APRN DIETARY AIDE COOK [address] [place] [address] Assigned Cancer Care Provider 04/05/22 07/25/22 Anthony Leyva MD [address] [place] [address] Assigned Gastroenterology Provider 04/12/22 Shaila Mota APRN DIETARY AIDE COOK [address] [place] [address], [address] [place] [address] Assigned Heart and Vascular Provider 05/17/22 07/18/22 Evaristo Stack, LANA [address] [facility] 130 [place] [address] Assigned Cancer Care Provider 07/26/22 Anthony Mazariegos MD [address] [place] [address] 200 [place] [address] Assigned Heart and Vascular Provider 07/19/22 09/19/22 Shaila Mota APRN DIETARY AIDE COOK [address] [place] [address], [address] [place] [address] Assigned Heart and Vascular Provider 09/20/22 01/16/23 Anthony Mazariegos MD [address] [facility] [address] [address] [place] [address] Assigned Heart and Vascular Provider 01/17/23 documented as of this encounter
--- OUTSIDE RECORDS SUMMARY | 2023-04-01 08:43 | XMS_ITS | Encounter Summary ---
Author Name Unknown Organization [place] Address [address] [place] [address] Care Team Providers Care Income Tax Administrator Name Role Phone Anthony Mazariegos MD Primary Care Provider [phone] Emmanuel Nobles MD Unavailable [phone] Anthony Leyva MD Unavailable + [phone] Anthony Mazariegos MD Unavailable [phone] Verona Mclain CARTRIDGE LOADING OPERATOR BASE FILLER Unavailable [phone] Anthony Leyva MD Unavailable + [phone] Reason for Referral * Diagnostic Imaging Ultrasound (Routine) - Pending Review Specialty Diagnoses / Procedures Referred By Contac t Referred To Contact Diagnoses Cirrhosis of liver without ascites, unspecified hepatic cirrhosis type (H) Procedures US Abdomen Complete w Doppler Complete Anthony Leyva MD [address] [place] [address] Referral ID Status Reason Start Date Expiration Date V isits Requested Visits Authorized [id number] Pending Review 04/03/2022 04/03/2023 1 1 Reason for Visit * Diagnostic Imaging Ultrasound (Routine) - Pending Review Specialty Diagnoses / Procedures Referred By Contac t Referred To Contact Diagnoses Cirrhosis of liver without ascites, unspecified hepatic cirrhosis type (H) Procedures US Abdomen Complete w Doppler Complete Anthony Leyva MD [address] [place] [address] Referral ID Status Reason Start Date Expiration Date V isits Requested Visits Authorized [id number] Pending Review 04/03/2022 04/03/2023 1 1 Encounter Details Date Type Department Care Team (Latest Contact Info) Description 05/12/2022 9:36 AM CDT - 05/12/2022 11:59 PM CDT Hospital Encounter [facility] [address] [place] [phone] Anthony Leyva MD [address]09 [place] [address] Cirrhosis of liver without ascites, unspecified hepatic [...] Description 05/11/2023 1:30 PM CDT Virtual Visit [place] [id number] [facility] [address] [place] [address] Evaristo Stack CNP [address] [place] [address] [address] [place], [place] [phone] Nallely Saravia MD [address] [place] [address] documented as of this encounter [...] US ABDOMEN COMPLETE WITH DOPPLER COMPLETE LOCATION: [facility] DATE/TIME: 05/12/2022 10:09 AM INDICATION: [...] US ABDOMEN COMPLETE WITH DOPPLER COMPLETE LOCATION: [facility] DATE/TIME: 05/12/2022 10:09 AM INDICATION: [...] (H) documented in this encounter Care Teams Income Tax Administrator Relationship Specialty Start Date End Date Anthony Mazariegos MD [address] [facility] [address] [place] [address] PCP - General Cardiovascular Disease 01/14/22 3 [place] [address] [place] [address] [place] [address] Hematology 02/07/22 Anthony Leyva MD [address] [place] [address] Gastroenterology 02/07/22 Anthony Mazariegos MD [address] [facility] [address] [place] [address] Assigned Heart and Vascular Provider 03/08/22 05/16/22 Verona Mclain APRN [facility] [address] [place] [address] Assigned Cancer Care Provider 04/05/22 07/25/22 Anthony Leyva MD [address] [place] [address] Assigned Gastroenterology Provider 04/12/22 documented as of this encounter
--- OUTSIDE RECORDS SUMMARY | 2023-04-01 08:44 | XMS_ITS | Encounter Summary ---
Author Name Unknown Organization [place] Address [facility]0 [place] [address] Care Team Providers Care Courtroom Deputy Or Calendar Clerk Name Role Phone Mateus Bergman MD Primary Care Provider Unava ilable System, Provider Not In Primary Care Provider Un available Anthony Mazariegos MD Primary Care Provider [phone] Rocio Sellers NP Unavailable Emmanuel Nobles MD Unavailable [phone] Anthony Leyva MD Unavailable Shaila Mota APRN ITEM PROCESSOR Unavailable Anthony Mazariegos MD Unavailable [phone] Verona Mclain IMMUNOLOGY SPECIALIST ITEM PROCESSOR Unavailable Anthony Leyva MD Unavailable [phone] Shaila Mota IMMUNOLOGY SPECIALIST ITEM PROCESSOR Unavailable Evaristo Stack ITEM PROCESSOR Unavailable [phone] Anthony Mazariegos MD Unavailable [phone] Shaila Mota APRN ITEM PROCESSOR Unavailable Emil Cope MD Primary Care Provider Anthony Mazariegos MD Unavailable [phone] Reason for Visit * Reason Comments Call Center Generated Orders Encounter Details Date Type Department Care Team (Late st Contact Info) Description 07/20/2015 Orders Only [facility] [address] [address] Arcadio Robles, DO [address] [place] [phone] Social History Tobacco Use Types Packs/Day Years [...] 05/11/2023 1:30 PM CDT Virtual Visit [address] [place] [phone] Evaristo Stack, LANA [address] [place] [address] [address] [place] [address] Nallely Saravia MD [address] [place], [place] [phone] documented as of this encounter Visit Diagnoses Not on filedocumented in this encounter Care Teams Courtroom Deputy Or Calendar Clerk Relationship Specialty Start Date End Date Mateus Bergman MD PCP - General 10/24/10 12/18/21 System, Provider Not In PCP - General Clinic 12/19/21 01/13/22 Anthony Mazariegos MD 1600 [facility] 200 [place] [address] PCP - General Cardiovascular Disease 01/14/[address] [facility] [address] [place] [address] PCP - General Emergency Medicine 09/30/22 Rocio Sellers NP [address] [facility] [place] [address] Assigned Heart and Vascular Provider 01/11/22 02/07/22 [place] [address] [place] [address] [place] [address] Hematology 02/07/22 Anthony Leyva MD [address] [place] [address] Gastroenterology 02/07/22 Shaila Mota APRN ITEM PROCESSOR [address] [facility] 200 [place] [address] Assigned Heart and Vascular Provider 02/08/22 03/07/22 Anthony Mazariegos MD [address] [facility] [address] [place] [id number] Assigned Heart and Vascular Provider 03/08/22 05/16/22 Verona Mclain APRN ITEM PROCESSOR [address] [place], [place] [phone] Assigned Cancer Care Provider 04/05/22 07/25/22 Anthony Leyva MD [address] [place] [address] Assigned Gastroenterology Provider 04/12/22 Shaila Moat APRN ITEM PROCESSOR [address] [facility], [address] [place] [address] Assigned Heart and Vascular Provider 05/17/22 07/18/22 Evaristo Stack, LANA [facility] [address] [place] [address] [place] [address] Assigned Cancer Care Provider 07/26/22 Anthony Mazariegos MD [address] [place] [address] [address] [place] [address] Assigned Heart and Vascular Provider 07/19/22 09/19/22 Shaila Mota APRN ITEM PROCESSOR [address] [facility] [place] [address] Assigned Heart and Vascular Provider 09/20/22 01/16/23 Anthony Mazariegos MD 1600 [facility] 200 [place] [address] Assigned Heart and Vascular Provider 01/17/23 documented as of this encounter
--- OUTSIDE RECORDS SUMMARY | 2023-04-01 08:44 | XMS_ITS | Encounter Summary ---
Author Name Unknown Organization [place] Address [address] [facility] [place] [address] Care Team Providers Care Wildlife Ecology Professor Name Role Phone System, Provider Not In Primary Care Provider Un available Anthony Mazariegos MD Primary Care Provider Rocio Sellers NP Unavailable [phone] Emmanuel Nobles MD Unavailable [phone] Anthony Leyva MD Unavailable Shaila Mota NURSING AGENCY MANAGER DIRECTOR MEDICAL AFFAIRS Unavailable Anthony Mazariegos MD Unavailable [phone] Verona Mclain NURSING AGENCY MANAGER DIRECTOR MEDICAL AFFAIRS Unavailable Anthony Leyva MD Unavailable Reason for Visit * Reason Onset Date Comments Pt. Information/instruction 01/08/2022 Vide o capsule endoscopy Encounter Details Date Type Department Care Team ([facility] st Contact Info) Description 01/08/2022 Telephone [facility] Endoscopy [address] [place] [address] Nadine Rodriguez, JAMILA Pt. Information/instruction [...] to limit sodium due to cardiac diagnosis. Labor Utilization Superintendent then discussed will send golytely prep to pharmacy. Patient verbalized understanding and in agreement with plan. ING MACHINE MECHANIC * Telephone Encounter - Alie Salazar RN [...] time 1200 and facility location [facility]. No pick up and delivery driver/agent telegrapher needed as this procedure is scheduled without sedation Diabetic? No Reviewed video capsule prep instructions with patient. Patient verbalized understanding and had no questions or concerns at this time. Alie Salazar RN ING MACHINE MECHANIC * Telephone Encounter - Nadine Rodriguez RN - 01/08/2022 10:38 AM CST Attempted to contact patient regarding upcoming video capsule endoscopy procedure on 01.14.2022 forpre assessment questions. No answer. Left message to return call to [phone] #4 Discuss at home rapid antigen COVID test 1-2 days prior to procedure. Arrival time: 1200 Facility location: [facility] Sedation type: none Indication for procedure: iron deficiency anemia; neg egd/colonoscopy Anticoagulants: Eliquis Bowel prep recommendation: Miralax//Dulcolax Prep instructions sent via Letter at time of scheduling. Nadine Rodriguez, RN ING MACHINE MECHANIC documented in this encounter Plan of Treatment Upcoming Encounters Date Type Department Care Team (Late st Contact Info) Description 05/11/2023 1:30 PM CDT Virtual Visit [facility] [address] [facility] [address] [place] [phone] Evaristo Stack, DIRECTOR MEDICAL AFFAIRS 5 [facility] [address] [place], [place] [id number] Nallely Saravia MD [address] [place], [place] [id number] documented as of this encounter Visit Diagnoses Diagnosis Anemia, iron deficiency- Primary Iron deficiency anemia, unspecified documented in this encounter Care Teams Wildlife Ecology Professor Relationship Specialty Start Date End Date System, Provider Not In PCP - General Clinic 12/19/21 01/13/22 Anthony Mazariegos MD [address] [facility] [address] [place] [address] PCP - General Cardiovascular Disease 01/14/22 3 Rocio Sellers NP [address] [facility] [place] [address] Assigned Heart and Vascular Provider 01/11/22 02/07/22 Emmanuel Nobles MD [address] [facility] [place] [address] Hematology 02/07/22 Anthony Leyva MD [address] [place] [address] Gastroenterology 02/07/22 Shaila Mota APRN DIRECTOR MEDICAL AFFAIRS [address] [facility] [place] [address] Assigned Heart and Vascular Provider 02/08/22 03/07/22 Anthony Mazariegos MD [address] [place] [address] [address] [place] [address] Assigned Heart and Vascular Provider 03/08/22 05/16/22 Verona Mclain APRN DIRECTOR MEDICAL AFFAIRS [address] [place] [address] Assigned Cancer Care Provider 04/05/22 07/25/22 Anthony Leyva MD [address] [place] [address] Assigned Gastroenterology Provider 04/12/22 documented as of this encounter
--- OUTSIDE RECORDS SUMMARY | 2023-04-01 08:44 | XMS_ITS | Encounter Summary ---
Author Name Unknown Organization [place] Address [facility] [place] [address] Care Team Providers Care Digester Hand Name Role Phone Anthony Mazariegos MD Primary Care Provider Emmanuel Nobles MD Unavailable [phone] Anthony Leyva MD Unavailable [phone] Shaila Mota IT SALES EXECUTIVE HEAD HOUSEKEEPER Unavailable Anthony Mazariegos MD Unavailable [phone] eVrona Mclain IT SALES EXECUTIVE HEAD HOUSEKEEPER Unavailable [phone] Encounter Details Date Type Department Care Team (Late st Contact Info) Description 02/12/2022 Telephone [facility] Heart [facility] [address] [facility] [address] [place] [phone] Stephanie Burnham Social History Tobacco Use Types [...] Coronavirus/COVID-19? No / Unsure 04/04/2022 9:58 AM PROJ ENGINEER documented as of this encounter Miscellaneous Notes * Telephone Encounter - Shaila Mota APRN CNP - 02/12/2022 10:41 AM CST Thank you for update. Med list updated. ENGINEER * Telephone Encounter - Stephanie Burnham RN - 02/12/2022 10:39 AM CST He wants to try taking it once a week. Will be taking it on Thursday. Explained he has to monitor symptoms and wts very closely and to call us if it worsens. He stated understanding and agreement. Stephanie Doherty RN BSN ENGINEER * Telephone Encounter - Shaila Mota APRN [...] any new or worsening symptoms. Thank you ENGINEER * Telephone Encounter - Stephanie Burnham RN [...] due to the medication. Recommended he contacta small appliance assembly supervisor to further assess but stated would mention to the provider as well. HARMEET Doherty RN BSN ENGINEER * Telephone Encounter - Stephanie Burnham RN - 02/12/2022 8:49 AM CST ----- Message from Shaila Mota APRN CNP sent at 02/12/2022 7:26 AM PROJ ENGINEER ----- Regarding: FW: metolazone Please call patient to see if he has had any increase symptoms of fluid retention since decreasing metolazone to twice a week. Thank you ----- Message ----- From: Shaila Mota APRN CNP Sent: 02/12/2022 12:00 AM PROJ ENGINEER To: Shaila Mota APRN CNP Subject: metolazone Decrease metolazone to twice a week on Tuesdays and Saturdays. Any increased shortness of breath, edema or weight gain? ENGINEER documented in this encounter Plan of Treatment Upcoming Encounters Date Type Department Care Team (Late st Contact Info) Description 05/11/2023 1:30 PM CDT Virtual Visit [address] [place] [phone] Evaristo Stack CNP [address] [place] [address] [address] [place], [place] [id number] Nallely Saravia MD [address] [place], [place] [phone] documented as of this encounter Visit Diagnoses Diagnosis Chronic heart failure with preserved ejection fraction (H) documented in this encounter Care Teams Digester Hand Relationship Specialty Start Date End Date Anthony Mazariegos MD [address] [facility] [address] [place] [address] PCP - General Cardiovascular Disease 01/14/22 3 Emmanuel Nobles MD [address] [facility] [place] [address] Hematology 02/07/22 Anthony Leyva MD [address] [place] [address] Gastroenterology 02/07/22 Shaila Mota APRN HEAD HOUSEKEEPER [address] [facility], [address] [place] [address] Assigned Heart and Vascular Provider 02/08/22 03/07/22 Anthony Mazariegos MD [address] [facility] [address] [place] [address] Assigned Heart and Vascular Provider 03/08/22 05/16/22 Verona Mclain APRN HEAD HOUSEKEEPER [address] [place], [place] [phone] Assigned Cancer Care Provider 04/05/22 07/25/22 documented as of this encounter
--- OUTSIDE RECORDS SUMMARY | 2023-04-01 08:44 | XMS_ITS | Clinical Summary ---
Author Name Unknown Organization [facility] [facility] Address [place], [place] [address] Care Team Providers Care Pricing Actuary Name Role Phone Emil Cope MD Primary Care Provider Fuentes Romero MD Unavailable [phone] Nurses, Advanced Heart Failure Unavailable + Allergies [...] CDT Oxygen Saturation 96% 03/16/2019 3:04 PM LADLE HANDLER Inhaled Oxygen Concentration - - Weight 118.8 kg (262 lb) 11/29/2021 1:10 PM CDT Height 182.9 cm (6' 0.01) 03/16/2019 3:04 PM CS T Body Mass Index 35.53 03/16/2019 3:04 PM LADLE HANDLER Plan of Treatment Health Maintenance Due Date [...] 8:43 PM 11/29/2007 5:18 PM Care Teams Pricing Actuary Relationship Specialty Start Date End Date Emil Cope MD [address] [place] [address] PCP - General Internal Medicine 09/07/18 Fuentes Romero MD [address] [place] [address] [address] [place] [address] Cardiology - CHF Cardiovascular Disease 01/13/19 Nurses, Advanced Heart Failure [address] [address] Advanced Heart Failure/Transplant Card 01/13/19
--- OUTSIDE RECORDS SUMMARY | 2023-04-01 08:44 | XMS_ITS | Encounter Summary ---
Author Name Unknown Organization [place] Address [facility] [place] [address] Care Team Providers Care Manufacturing Quality Technician Name Role Phone Anthony Mazariegos MD Primary Care Provider Emmanuel Nobles MD Unavailable [phone] Anthony Leyva MD Unavailable [phone] Anthony Mazariegos MD Unavailable Verona Mclain CERTIFIED MEDICAL CODING SPECIALIST RUG WASHER Unavailable Anthony Leyva MD Unavailable [phone] Shaila Mota CERTIFIED MEDICAL CODING SPECIALIST RUG WASHER Unavailable Evaristo Stack RUG WASHER Unavailable Anthony Mazariegos MD Unavailable Shaila Mota APRN RUG WASHER Unavailable Emil Cope MD Primary Care Provider Anthony Mazariegos MD Unavailable [phone] Reason for Visit * Reason Comments Medication Refill Encounter Details Date Type Department Care Team (Late st Contact Info) Description 03/08/2022 Refill [facility] [address] [facility] [address] [place] [phone] Anthony Mazariegos MD [address] [facility] 200 [place] [address] Medication Refill Social History Tobacco Use Types [...] Coronavirus/COVID-19? No / Unsure 03/07/2022 12:03 PM ROLLER MACHINE OPERATOR documented as of this encounter Plan of Treatment Upcoming Encounters Date Type Department Care Team (Late st Contact Info) Description 05/11/2023 1:30 PM CDT Virtual Visit [facility] [address] [facility] [address] [place] [phone] Evaristo Stack, LANA [address] [facility] [address] [place] [address] Nallely Saravia MD [address] [place], [place] [id number] documented as of this encounter Visit Diagnoses Diagnosis Chronic heart failure with preserved ejection fraction (H) documented in this encounter Care Teams Manufacturing Quality Technician Relationship Specialty Start Date End Date Anthony Mazariegos MD [address] [facility] [address] [place] [address] PCP - General Cardiovascular Disease 01/14/22 3 Emil Cope MD [facility] [address] [place] [address] PCP - General Emergency Medicine 09/30/22 Emmanuel Nobles MD [address] [place] [address] Hematology 02/07/22 Anthony Leyva MD [address] [place] [address] Gastroenterology 02/07/22 Anthony Mazariegos MD [address] [facility] [address] [place] [address] Assigned Heart and Vascular Provider 03/08/22 05/16/22 Verona Mclain APRN RUG WASHER [address] [place] [address] Assigned Cancer Care Provider 04/05/22 07/25/22 Anthony Leyva MD [address] [place] [address] Assigned Gastroenterology Provider 04/12/22 Shaila Mota APRN RUG WASHER [address] [place] [address] [address] [place] [address] Assigned Heart and Vascular Provider 05/17/22 07/18/22 Evaristo Stack, RUG WASHER [facility] [address] [place] [address] Assigned Cancer Care Provider 07/26/22 Anthony Mazariegos MD [address] [facility] [address] [place] [address] Assigned Heart and Vascular Provider 07/19/22 09/19/22 Shaila Mota APRN RUG WASHER [address] [place] [address] 200 [place] [address] Assigned Heart and Vascular Provider 09/20/22 01/16/23 Anthony Mazariegos MD [address] [facility] [address] [place] [address] Assigned Heart and Vascular Provider 01/17/23 documented as of this encounter
--- NOTE | 2023-04-01 08:51 | SUR.PREOP ---
The eye drops brought by the patient (Ketorolac and Prednisolone) are examined and I have determined they are labeled by the patient's pharmacy for this patient as prescribed by the surgeon. The bottles are intact, recently obtained and appear to be correct.
[2023-04-01] MEDS: TETRACAINE 0.5% OPHTH 1 DROP EYE-RIGHT ×2 (08:56→09:10)
[2023-04-01] MEDS: KETOROLAC OPHTH 0.5% 1 DROP EYE-RIGHT ×3 (09:01→09:20)
[2023-04-01] MEDS: SODIUM CHLORIDE 0.9 % (FLUSH) 10 ML SYRINGE IVF (09:23)
[2023-04-01 09:26] VITALS: BP 122/67; PULSE 82; RESP 16; TEMP 37.2; O2SAT 93; BMI 34.4
[2023-04-01] MEDS: TETRACAINE 0.5% OPHTH 2 DROP EYE-RIGHT (09:53)
[2023-04-01] MEDS: BALANCED SALT IRRIG SOLN 15 ML EYE-RIGHT (09:57)
[2023-04-01 10:32] VITALS: BP 122/73; PULSE 77; RESP 16; TEMP 36.6; O2SAT 97
--- NOTE | 2023-04-01 10:32 | W.ANESCHARGE ---
Anesthesia Charges Start Date/Time Anesthesia Start Date: 04/01/23 Anesthesia Start Time: 09:49 Stop Date/Time Anesthesia Stop Date: 04/01/23 Anesthesia Stop Time: 10:35 Summary Extremes of Age - Over 70 or under 1: MDA
--- NOTE | 2023-04-01 10:34 | W.ANESCHARGE ---
Anesthesia Charges Start Date/Time Anesthesia Start Date: 04/01/23 Anesthesia Start Time: 09:49 Stop Date/Time Anesthesia Stop Date: 04/01/23 Anesthesia Stop Time: 10:35 Summary Extremes of Age - Over 70 or under 1: CLIP BOLTER AND WRAPPER
--- NOTE | 2023-04-01 11:18 | W.PM.OPTPROC ---
Procedure Note Date of procedure: 04/01/23 Will [facility] bill your pro fee for this procedure?: Yes Procedure Description: SURGEON: Belkys Delgadillo MD PREOPERATIVE DIAGNOSIS: 1. Nuclear sclerotic cataract, right eye. 2. Miosis, right eye. POSTOPERATIVE DIAGNOSIS: 1. Nuclear sclerotic cataract, right eye. 2. Miosis, right eye. NAME OF OPERATION: Phacoemulsification of cataract with posterior chamber intraocular lens implantation in the right eye with pupilloplasty. ANESTHESIA: Topical. ESTIMATED BLOOD LOSS: Less than 2 cc. COMPLICATIONS: None. PATHOLOGY SPECIMEN: None. INDICATIONS: See consult note for details. The risks, benefits and alternatives of the procedure were explained to the patient, who elected to proceed and signed informed consent to do so. PROCEDURE: The patient was brought to the pre-holding area where the right eye was identified as the operative eye. I placed my initials above this eye. The patient received eye drops consisting of 0.5% tetracaine, 1% tropicamide, 10% phenylephrine, and 0.5% ketorolac. The patient was then brought to the operating room where the right eye was again identified as the operative eye. The eye was prepped with Betadine and draped in the usual sterile ophthalmic fashion. A #15 super-sharp blade was used to create a paracentesis site. 1% non-preserved intracameral lidocaine was injected into the anterior chamber. Endocoat was injected into the anterior chamber. A 2.4 mm keratome was used to create a three-plane self-sealing incision 1 mm anterior to the temporal limbus. A #15 super-sharp blade was used to create four additional paracentesis sites. Four Grieshaber iris hooks were placed in order to stretch the iris. A cystotome was used to create an anterior capsular leaflet. The Utrata forceps were used to extend this to form a continuous curvilinear capsulorrhexis. Hydrodissection was performed. There was mild iris prolapse at the incision. It was carefully repositioned with a blunt cannula in a side sweeping fashion. The cataract was removed with phacoemulsification using the ucnlia-ihh-ngudlut technique. The irrigation and aspiration tip was used to remove the remaining cortex. Healon was injected into the capsular bag. An SEAN ZCB00 intraocular lens of 21.5 diopters was injected into the capsular bag. The four Grieshaber iris hooks were removed. The irrigation and aspiration tip was used to remove the remaining viscoelastic. Miostat was injected into the anterior chamber. Balanced salt solution on a cannula was used to hydrate the wound, and the wound was found to be watertight. The pupil was noted to be round. DISPOSITION: The patient was taken to the recovery room and discharged to home in stable condition. The patient was instructed to call me or go to the emergency department with any sudden change, including dramatic loss of vision, severe pain in the eye or eyebrow region, nausea, or vomiting. The patient will follow up in the clinic tomorrow morning.
== END 2023-04-01 11:10 | disposition home or self-care (01) ==
LOC: OR 08:39
PROVIDERS: PCP Internal Medicine; Visit Provider Ophthalmology
PROC: (CPT 66982; principal; 2023-04-01 09:00)
DX: H25.11 Age-related nuclear cataract, right eye (principal); H57.03 Miosis
CPT/HCPCS: 66982; 00142; 99100; A9270; J2250; J2405; J3010; V2632

== ENCOUNTER 2023-05-07 14:25 | Outpatient (REF) | payer MEDICARE, BC, SELFPAY ==
[2023-05-07 15:31] LABS: Basophils Percent Auto 0.3 % (0.0-3.0); Eosinophils Percent Auto 2.2 % (0.0-7.0); Hematocrit 38.7 % (37.0-53.0); Hemoglobin* 12.6 gm/dL (13.5-17.5); Immature Granulocytes Pct Auto 0.3 %; Lymphocytes Percent Auto 17.9 % (20-44); Mean Corpuscular HGB Conc 33 gm/dL (32-36); Mean Corpuscular Hemoglobin 31 pg (26-34); Mean Corpuscular Volume 97 fL (80-100); Monocytes Percent Auto 9.4 % (0.0-11.0); Neutrophils Percent Auto 69.9 % (42.0-72.0); Platelet Count* 179 K/uL (140-440); RDW Coefficient of Variation % 14.2 % (11.5-15.5); Red Blood Count 4.01 m/uL (4.30-5.90); White Blood Count* 11.54 K/uL (4.50-11.00)
[2023-05-07 15:36] LABS: Slide Review Reflex No
[2023-05-07 15:59] LABS: Ferritin* 60.7 ng/mL (17.9-464.0)
== END 2023-05-07 14:26 | disposition home or self-care (01) ==
LOC: NPINS 14:25
PROVIDERS: PCP Internal Medicine; Visit Provider Nurse Practitioner
DX: D50.0 Iron deficiency anemia secondary to blood loss (chronic) (principal); D46.9 Myelodysplastic syndrome, unspecified
CPT/HCPCS: 82728; 85025

== ENCOUNTER 2023-10-01 13:33 | Outpatient (REF) | payer MEDICARE, BC, SELFPAY ==
--- OUTSIDE RECORDS SUMMARY | 2023-10-01 13:45 | XMS_ITS | Encounter Summary ---
Author Organization [place] Address [facility] [place] [address] Care Team Providers Care Program Advocate Name Role Phone HenryciraEmmanuel MD Unavailable [phone] Anthony Leyva MD Unavailable [phone] Anthony Leyva MD Unavailable [phone] Emil Cope MD Primary Care Provider Anthony Mazariegos MD Unavailable [phone] Nallely Saravia MD Unavailable Reason for Visit * Reason Comments Medication Refill Encounter Details Date Type Department Care Team (Late st Contact Info) Description 09/25/2023 Refill [place] [id number] [facility] [address] [place] [address] Anthony Mazariegos MD [address] [facility] 200 [place] [address] Medication Refill Social History Tobacco Use Types [...] Care Team (Late st Contact Info) Description 11/10/2023 3:20 PM CDT Office Visit [facility] [address] [facility] [address] [place] [address] Anthony Mazariegos MD [address] [facility] 200 [place] [address] documented as of this encounter Visit Diagnoses Diagnosis Hypokalemia Hypopotassemia documented in this encounter Care Teams Program Advocate Relationship Specialty Start Date End Date Emil Cope MD [facility] [address] [place] [address] PCP - General Emergency Medicine 09/30/22 Emmanuel Nobles MD [address] [place] [address] Hematology 02/07/22 Anthony Leyva MD [address] [place] [address] Gastroenterology 02/07/22 Anthony Leyva MD [address] [place] [address] Assigned Gastroenterology Provider 04/12/22 Anthony Mazariegos MD [address] [facility] 200 [place] [address] Assigned Heart and Vascular Provider 01/17/23 [place] [address] [place] [address] Assigned Cancer Care Provider 06/23/23 documented as of this encounter
--- OUTSIDE RECORDS SUMMARY | 2023-10-01 13:45 | XMS_ITS | Encounter Summary ---
Author Organization [place] Address [facility]0 [facility] [place] [address] Care Team Providers Care Plastic Surgery Technician Name Role Phone HenryciraEmmanuel MD Unavailable [phone] Anthony Leyva MD Unavailable [phone] Anthony Leyva MD Unavailable + [phone] Emil Cope MD Primary Care Provider Anthony Mazariegos MD Unavailable [phone] Nallely Saravia MD Unavailable Encounter Details Date Type Department Care Team (Latest Contact Info) Description 09/25/2023 Documentation Only [facility] [address] [facility] [address] [place] [address] Estela Adam Hypokalemia (Primary Dx); Acute on chronic diastolic heart failure (H); [...] Description 11/10/2023 3:20 PM CDT Office Visit [facility] [address] [facility] [address] [place] [address] Anthony Mazariegos MD [address] [facility] [address] [place] [address] Scheduled Orders Name Type Priority Associated Diagnoses Orde r Schedule Basic metabolic panel Lab Routine Hypokalemia Acute on chronic diastolic heart failure (H) Stage 3 chronic kidney disease, unspecified whether stage 3a or 3b CKD (H) Expected: 09/30/2023 (Approximate), Expires: 09/29/2024 documented as of this encounter Visit Diagnoses Diagnosis Hypokalemia- Primary Hypopotassemia Acute on chronic diastolic heart failure (H) Acute on chronic diastolic heart failure Stage 3 chronic kidney disease, unspecified whether stage 3a or 3b CKD (H) documented in this encounter Care Teams Plastic Surgery Technician Relationship Specialty Start Date End Date Emil Cope MD [facility] [address] [place] [address] PCP - General Emergency Medicine 09/30/22 Emmanuel Nobles MD [address] [place] [address] [place] [address] Hematology 02/07/22 Anthony Leyva MD [address] [place] [address] Gastroenterology 02/07/22 Anthony Leyva MD [address] [place] [address] Assigned Gastroenterology Provider 04/12/22 Anthony Mazariegos MD [address] [facility] [address] [place], [place] [address] Assigned Heart and Vascular Provider 01/17/23 Nallely Saravia MD [address] [place], [place] [address] Assigned Cancer Care Provider 06/23/23 documented as of this encounter
--- OUTSIDE RECORDS SUMMARY | 2023-10-01 13:45 | XMS_ITS | Clinical Summary ---
Author Organization [place] Address [facility] access hospital0 [facility] [place] [address] Care Team Providers Care Fashion Show Director Name Role Phone Emmanuel Nobles MD Unavailable [phone] Anthony Leyva MD Unavailable [phone] Anthony Leyva MD Unavailable [phone] Emil Cope MD Primary Care Provider Anthony Mazariegos MD Unavailable [phone] Nallely Saravia MD Unavailable Allergies Active Allergy Reactions Criticality Noted Date Comments Folic Acid Diarrhea 08/24/2012 Claims to folic acid intolerant, causes diarrhea. Furosemide Rash Medium 01/13/2019 Amlodipine Besylate 12/14/2010 Swelling of right leg Medications Medication Sig Dispensed Refills Start Date End Date Status Glucosamine-Chondr oitin (COSAMIN DS PO) Take by mouth 2 times daily Cosamin DS 500/400 mg Active allopurinol (ZYLOPRIM) 100 MG tablet Take 200 mg by mouth daily Active tamsulosin (FLOMAX) 0.4 MG capsule Take 0.4 mg by mouth daily Active desoximetasone (TOPICORT) 0.25 % external cream APPLY TOPICALLY TWICE A DAY NEEDED 12/30/2021 Active metolazone (ZAROXOLYN) 2.5 MG tabletIndications: Chronic heart failure with preserved ejection fraction (H) Take 1 tablet twice weekly 24 tablet 4 09/15/2022 Active JARDIANCE 10 MG TABS tabletIndications: Chronic heart failure with preserved ejection fraction (H) TAKE 1 TABLET (10 MG) BY MOUTH DAILY (FOR HEART MUSCLE) 30 tablet 3 05/18/2023 Active apixaban ANTICOAGULANT (ELIQUIS ANTICOAGULANT) 2.5 MG tabletIndications: Permanent atrial fibrillation (H) TAKE 1 TABLET (2.5 MG) BY MOUTH 2 TIMES DAILY 60 tablet 5 05/26/2023 Active bumetanide (BUMEX) 2 MG tabletIndications: Chronic heart failure with preserved ejection fraction (H) TAKE 1 TABLET (2 MG) BY MOUTH 2 TIMES DAILY (WATER PILL FOR HEART) 180 tablet 4 2023 Active potassium chloride brett ER (KLOR-CON M10) 10 MEQ CR tabletIndications: Hypokalemia Take 4 tablets (40 mEq) by mouth daily Request further refills at upcoming Cardiology appt 120 tablet 1 09/25/2023 Active ciclopirox (LOPROX) 0.77 % cream Apply topically 2 times daily 09/23/19 24 Discontinued potassium chloride brett ER (KLOR-CON M10) 10 MEQ CR tabletIndications: Hypokalemia TAKE 4 TABLETS (40 MEQ) BY MOUTH DAILY 120 tablet 2 06/18/2023 09/25/19 24 Discontinued Active Problems Problem Noted Date Diagnosed Date [...] Encounters Date Type Department Care Team Description 09/25/[address] [facility] [address] [facility] [address] [place] [address] Estela Adam Hypokalemia (Primary Dx); Acute on chronic diastolic heart failure (H); Stage 3 chronic kidney disease, unspecified whether stage 3a or 3b CKD (H) 09/25/2023 Refill [facility] [address] [facility] [address] [place] [address] Anthony Mazariegos MD Medication Refill 09/23/2023 2:18 PM CDT - 09/23/2023 11:59 PM CDT Hospital Encounter [facility] [address] [place] [address] Anthony Mazariegos MD Acute on chronic diastolic heart failure (H); Stage 3 chronic kidney disease, unspecified whether stage 3a or 3b CKD (H); Essential hypertension; Iron malabsorption; Permanent atrial fibrillation (H); VIANNEY (obstructive sleep apnea); Heart failure with preserved ejection fraction, unspecified HF chronicity (H); Chronic heart failure with preserved ejection fraction (H) Discharge Disposition: Home or Self Care 09/23/2023 1:20 PM CDT Office Visit [facility] [address] [facility] [address] [place] [address] Anthony Mazariegos MD Acute on chronic diastolic heart failure (H); Stage 3 chronic kidney disease, unspecified whether stage 3a or 3b CKD (H); Essential hypertension; Iron malabsorption; Permanent atrial fibrillation (H); VIANNEY (obstructive sleep apnea); Heart failure with preserved ejection fraction, unspecified HF chronicity (H); Chronic heart failure with preserved ejection fraction (H) 09/23/2023 Travel 08/24/2023 Refill [facility] [address] [facility] [address] [place] [address] Shaila Mota APRN CNP Medication Refill from Last 3 Months Immunizations Name Administration [...] Sign Reading Time Taken Comments Blood Pressure 114/66 09/23/2023 1:10 PM CDT Pulse 87 09/23/2023 1:10 PM CDT Temperature 36.8 ??C (98.3 ??F) 07/17/2022 2:06 PM CD T Respiratory Rate 20 09/23/2023 1:10 PM CDT Oxygen Saturation 94% 09/23/2023 1:10 PM CDT Inhaled Oxygen Concentration - - Weight 112.4 kg (247 lb 12.8 oz) 09/23/2023 1:10 PM CDT Height 180.3 cm (5' 11) 05/11/2023 1:08 PM CDT Body Mass Index 34.56 05/11/2023 1:08 PM CDT Plan of Treatment Upcoming Encounters Date Type Department Care Team (Late st Contact Info) Description 11/10/2023 3:20 PM CDT Office Visit [facility] [address] [facility] [address] [place] [phone] Anthony Mazariegos MD [address] [facility] [address] [place] [address] Health Maintenance Due Date Last Done Comments [...] 2022 07/23/2021, 01/17/2021, 05/01/2020, Additional history exists LIPID 11/26/2022 11/26/2021 PHQ-2 (once per calendar year) 2023 04/03/2022 FALL RISK ASSESSMENT 07/18/2023 07/17/2022 INFLUENZA VACCINE (#1) 2023 01/17/2021 BMP 03/25/2024 09/23/2023, 12/31, 09/15/2022, Additional history exists ALT 09/22/2024 09/23/2023, 06/30, 04/01/2022, Additional history exists CBC 09/22/2024 09/23/2023, 06/30, 03/07/2022, Additional history exists HEMOGLOBIN 09/22/2024 09/23/2023, 06/30, 03/07/2022, Additional history exists DTAP/TDAP/TD IMMUNIZATION (2 - [...] (Cologuard) Discontinued Medical Devices Implanted Type Area Bag Valver Device Identifier Shelf Expiration Date Model / Serial / Lot Bone Cement Simplex Full Dose 6191-1-001 Implanted:Qty: 2 on 03/29/2013 by Eric Pepper MD at [facility] Left: Knee [employer] 07/31/2015 6191-1-001 / / [id number] Imp Comp Fem Strk Triathln Cr Lt 6 5510-F-601 Implanted:Qty: 1 on 03/29/2013 by Eric Pepper MD at [facility] Left: Knee [employer] 10/30/2017 5510-F-601 / / [id number] Imp Baseplate Tibial Howm Tri 6 5520-B-600 Implanted:Qty: 1 on 03/29/2013 by Eric Pepper MD at [facility] Left: Knee [employer] 03/01/2018 5520-B-600 / / [id number] Imp Comp Patella Tri [id number] 5550-G-360 Implanted:Qty: 1 on 03/29/2013 by Eric Pepper MD at [facility] Left: Knee [employer] 01/29/2018 5550-G-360 / / [id number] Imp Insert Tibial Howm Tri 6x09mm 5530-[id number] Implanted:Qty: 1 on 03/29/2013 by Eric Pepper MD at [facility] Left: Knee [employer] 01/29/2018 5530-G-[id number] / / [id number] Procedures Procedure Name Priority Date/Time Associated Diagnosis Comments XR CHEST 2 VIEWS Routine 09/23/2023 2:29 PM CDT Acute on chronic diastolic heart failure (H) Stage 3 chronic kidney disease, unspecified whether stage 3a or 3b CKD (H) Essential hypertension Iron malabsorption Permanent atrial fibrillation (H) VIANNEY (obstructive sleep apnea) Heart failure with preserved ejection fraction, unspecified HF chronicity (H) Chronic heart failure with preserved ejection fraction (H) CBC WITH PLATELETS Routine 09/23/2023 2: 10 PM CDT Acute on chronic diastolic heart failure (H) Stage 3 chronic kidney disease, unspecified whether stage 3a or 3b CKD (H) Essential hypertension Iron malabsorption Permanent atrial fibrillation (H) VIANNEY (obstructive sleep apnea) Heart failure with preserved ejection fraction, unspecified HF chronicity (H) Chronic heart failure with preserved ejection fraction (H) COMPREHENSIVE METABOLIC PANEL Routine 09/23/2023 2:10 PM CDT Acute on chronic diastolic heart failure (H) Stage 3 chronic kidney disease, unspecified whether stage 3a or 3b CKD (H) Essential hypertension Iron malabsorption Permanent atrial fibrillation (H) VIANNEY (obstructive sleep apnea) Heart failure with preserved ejection fraction, unspecified HF chronicity (H) Chronic heart failure with preserved ejection fraction (H) TSH WITH FREE T4 REFLEX Routine 12/16/2021 4:38 AM CDT COLONOSCOPY Routine 12/13/2021 9:53 AM CDT LIPID PANEL (EXTERNAL RESULT) Routine 11/26/2021 1:34 PM CDT from Last 3 Months or Most Recently Relevant to Health Maintenance Results * XR Chest 2 Views (09/23/2023 2:29 PM CDT) Anatomical Region Laterality Modality Chest Digital Radiogra phy 09/23/2023 2:29 PM CDT Impressions 09/23/2023 2:42 PM CDT IMPRESSION: Cardiomegaly. Pulmonary venous hypertension. There are interstitial opacities in both lungs suggesting pulmonary edema. No pleural effusions. No consolidation. Narrative 09/23/2023 2:42 PM CDT EXAM: XR CHEST 2 VIEWS LOCATION: [facility] DATE: 09/23/2023 INDICATION: ??Acute on chronic diastolic heart failure (H), Stage 3 chronic kidney disease, unspecified whether stage 3a or 3b CKD (H), Essential hypertension, Iron malabsorption, Permanent atrial fibrillation (H), VIANNEY (obstructive sleep apnea), Heart failure with preserved ejection fraction, unspecified HF chr COMPARISON: 11/07/2010 Procedure Note Miguel Angel Staley MD - 09/23/2023 EXAM: XR CHEST 2 VIEWS LOCATION: [facility] DATE: 09/23/2023 INDICATION: Acute on chronic diastolic heart failure (H), Stage 3 chronickidney disease, unspecified whether stage 3a or 3b CKD (H), Essentialhypertension, Iron malabsorption, Permanent atrial fibrillation (H), VIANNEY(obstructive sleep apnea), Heart failure with preserved ejection fraction, unspecified HF chr COMPARISON: 11/07/2010 IMPRESSION: Cardiomegaly. Pulmonary venous hypertension. There areinterstitial opacities in both lungs suggesting pulmonary edema. Nopleural effusions. No consolidation. Anthony Mazariegos MD IMG DIAGNOSTIC IMAGI NG ORDERABLES * (ABNORMAL) Comprehensive metabolic panel (09/23/2023 2:10 PM CDT) Sodium 140 135 - 145 mmol/L 09/23/2023 5:23 PM CDT [facility] Potassium 3.7 3.4 - 5.3 mmol/L 09/23/2023 5:23 PM CDT [facility] Carbon Dioxide (CO2) 31(H) 22 - 29 mmol/L 09/23/2023 5:23 PM T [facility] Anion Gap 11 7 - 15 mmol/L 09/23/2023 5:23 PM CDT [facility] Urea Nitrogen 55.7(H) 8.0 - 23.0 mg/dL 09/23/2023 5:23 PM T [facility] Creatinine 2.27(H) 0.67 - 1.17 mg/dL 09/23/2023 5:23 PM CDT [facility] GFR Estimate 28(L) >60 mL/min/1.7 3m2 09/23/2023 5:23 PM CDT [facility] Comment:eGFR calculated us2020 CKD-EPI equation. Calcium 10.0 8.8 - 10.4 mg/dL 09/23/2023 5:23 PM T [facility] Comment:Reference intervals for this test were updated on 09/15/2023 to reflect our healthy population more accurately. There may be differences in the flagging of prior results with similar values performed with this method. Those prior results can be interpreted in the context of the updated reference intervals. Chloride 98 98 - 107 mmol/L 09/23/2023 5:23 PM CDT [facility] Glucose 79 70 - 99 mg/dL 09/23/2023 5:23 PM CDT [facility] Alkaline Phosphatase 105 40 - 150 U/L 09/23/2023 5:23 PM CDT [facility] AST 25 0 - 45 U/L 09/23/2023 5:23 PM CDT [facility] ALT 18 0 - 70 U/L 09/23/2023 5:23 PM CDT [facility] Protein Total 7.7 6.4 - 8.3 g/dL 09/23/2023 5:23 PM CDT [facility] Albumin 4.2 3.5 - 5.2 g/dL 09/23/2023 5:23 PM CDT [facility] Bilirubin Total 1.1 <=1.2 mg/dL 09/23/2023 5:23 PM CDT [facility] Blood STRUCTURE OF RIGHT UPPER LIMB / Unknown Venipuncture / Unknown 09/23/2023 2:10 PM CDT 09/23/2023 5:03 PM CDT Anthony Mazariegos MD LAB - BLOOD ORDERABL ES [facility] [address] [place] [address], [facility] * (ABNORMAL) CBC with platelets (09/23/2023 2:10 PM CDT) WBC Count 12.2(H) 4.0 - 11.0 10e3/uL 09/23/2023 5:08 PM CDT [facility] RBC Count 3.75(L) 4.40 - 5.90 10e6/uL 09/23/2023 5:08 PM CDT [facility] Hemoglobin 11.6(L) 13.3 - 17.7 g/dL 09/23/2023 5:08 PM CDT [facility] Hematocrit 35.8(L) 40.0 - 53.0 % 09/23/2023 5:08 PM CDT [facility] MCV 96 78 - 100 fL 09/23/2023 5:08 PM CDT [facility] MCH 30.9 26.5 - 33.0 pg 09/23/2023 5:08 PM CDT [facility] MCHC 32.4 31.5 - 36.5 g/dL 09/23/2023 5:08 PM CDT [facility] RDW 14.7 10.0 - 15.0 % 09/23/2023 5:08 PM CDT [facility] Platelet Count 173 150 - 450 10e3/uL 09/23/2023 5:08 PM CDT [facility] Blood STRUCTURE OF RIGHT UPPER LIMB / Unknown Venipuncture / Unknown 09/23/2023 2:10 PM CDT 09/23/2023 5:03 PM CDT Anthony Mazariegos MD LAB - BLOOD ORDERABL ES [facility] [address] [place] [address], [facility] * TSH with free T4 reflex (12/16/2021 4:38 AM CDT) TSH 1.56 0.30 - 5.00 uIU/mL 12/16/2021 5:56 AM CDT [facility] Blood STRUCTURE OF RIGHT UPPER LIMB / Unknown Venipuncture / Unknown 12/16/2021 4:38 AM CDT 12/16/2021 5:14 AM CDT Tutu Collier MD LAB - BLOOD ORDERABL ES [facility] [address] [place] [address], [facility] [phone] * COLONOSCOPY (12/13/2021 9:53 AM CDT) [facility] [address] ??[place] [address] Patient Name: Tutu Ngo ?Procedure Date: 12/13/2021 9:53 AM ? Date of : 1940 ?Admit Type: Inpatient Age: 81 ? Room: [place] [address] Note Status: Finalized ?Attending MD: JOSE DIALLO , Total Sedation Time: ?Instrument Name: Adult Colonoscope 630 Procedure: ? Colonoscopy Indications: ? Iron deficiency anemia Providers: ? JOSE DIALLO Referring MD: ? Medicines: ? Monitored Anesthesia Care Complications: ? No immediate complications. Procedure: ? Pre-Anesthesia Assessment: ? - Prior to the procedure, a History and Physical was ? performed, and patient medications and allergies were ? reviewed. The patient's tolerance of previous ? anesthesia was also reviewed. The risks and benefits ? of the procedure and the sedation options and risks ? were discussed with the patient. All questions were ? answered, and informed consent was obtained. Prior ? Anticoagulants: The patient has taken Eliquis ? (apixaban), last dose was 2 days prior to procedure. ? ASA Grade Assessment: III - A patient with severe ? systemic disease. After reviewing the risks and ? benefits, the patient was deemed in satisfactory ? condition to undergo the procedure. ? After obtaining informed consent, the colonoscope was ? passed under direct vision. Throughout the procedure, ? the patient's blood pressure, pulse, and oxygen ? saturations were monitored continuously. The ? colonoscope was introduced through the anus and ? advanced to the terminal ileum. The colonoscopy was ? technically difficult and complex due to restricted ? mobility of the colon. Successful completion of the ? procedure was aided by changing the patient to a prone ? position and using manual pressure. The patient ? tolerated the procedure well. The quality of the bowel ? preparation was good. The terminal ileum, ileocecal ? valve, appendiceal orifice, and rectum were ? photographed. ? Findings: ? The perianal and digital rectal examinations were normal. ? The terminal ileum appeared normal. ? A 2 mm polyp was found in the cecum. The polyp was sessile. The polyp ? was removed with a cold biopsy forceps. Resection and retrieval were ? complete. Estimated blood loss was minimal. ? A 5 mm polyp was found in the cecum. The polyp was sessile. The polyp ? was removed with a cold snare. Resection and retrieval were complete. ? Estimated blood loss was minimal. ? Two sessile polyps were found in the descending colon. The polyps were 6 ? mm and 12 mm in size. These polyps were removed with a cold snare. ? Resection and retrieval were complete. There was some persistent oozing ? from the polypectomy site of the larger polyp. 2 hemoclips were placed ? with successful hemostasis. ? Two sessile polyps were found in the rectum. The polyps were 1 to 2 mm ? in size. These polyps were removed with a cold biopsy forceps. Resection ? and retrieval were complete. Estimated blood loss was minimal. ? Non-bleeding internal hemorrhoids were found during retroflexion. ? Moderate Sedation: ? See Anesthesia Note Impression: ?- The examined portion of the ileum was normal. ? - One 2 mm polyp in the cecum, removed with a cold ? biopsy forceps. Resected and retrieved. ? - One 5 mm polyp in the cecum, removed with a cold ? snare. Resected and retrieved. ? - Two 6 mm and 12 mm polyps in the descending colon, ? removed with a cold snare. Resected and retrieved. 2 ? hemoclips placed at polypectomy site of larger polyp. ? - Two 1 to 2 mm polyps in the rectum, removed with a ? cold biopsy forceps. Resected and retrieved. ? - Non-bleeding internal hemorrhoids. Recommendation: ?- [facility] patient [facility] for [facility]. ? - Advance diet as tolerated. ? - Await pathology results. ? - Hold eliquis x 72hrs. No NSAIDs. ? - No evidence of GI bleeding or lesions with bleeding ? potential. Recommend evaluating for non-GI causes of ? anemia. ? Jose Diallo MD JOSE DIALLO, 12/13/2021 10:49:58 AM I was physically present for the entire viewing portion of the exam. Signature of teaching physician [id number] DIALLO Number of Addenda: 0 Note Initiated On: 12/13/2021 9:53 AM Scope In: 10:00:34 AM Scope Out: 10:41:53 AM RADIOLOGY RESULTS 12/13/2021 9:53 AM CDT Jose Diallo MD PROCEDURES RADIOLOGY RESULTS * (ABNORMAL) Lipid Panel (External Result) (11/26/2021 1:34 PM CDT) Cholesterol (External) 109 90 - 199 mg/dL [facility] Triglycerides (External) 114 40 - 149 mg/dL [facility] HDL Cholesterol (External) 36(A) >=40 mg/dL [facility] LDL Cholesterol Calculated (External) 50 <100 mg/dL [facility] Blood 11/26/2021 1:34 PM CDT Narrative [facility] - 11/26/2021 1:34 PM CDT LAB RESULT [facility] Provider Outside LAB - HIM EXTERNAL R ESULT [facility] [address] [place] [address], [facility] [phone] from Last 3 Months or Most Recently Relevant to Health Maintenance Advance Directives For more information, please contact: [phone] * Full Code (Latest Code Status on File) Date Activated Date Inactivated Comments 12/12/2021 1:28 PM 12/20/2021 3:31 PM All basic and advanced life-sustaining interventions are performed as appropriate Question Answer Comments Code status determined by: Discussion with leisa nt/ legal decision maker * Full Code Date Activated Date Inactivated Comments 03/29/2013 6:39 PM 03/31/2013 5:03 PM Care Teams Fashion Show Director Relationship Specialty Start Date End Date Emil Cope MD [facility] [address] [place] [address] PCP - General Emergency Medicine 09/30/22 [place] [address] [place] [address] [place] [address] Hematology 02/07/22 Anthony Leyva MD [address] [place] [id number] Gastroenterology 02/07/22 Anthony Leyva MD [address] [place] [id number] Assigned Gastroenterology Provider 04/12/22 Anthony Mazariegos MD [address] [place] [address] [id number] Assigned Heart and Vascular Provider 01/17/23 Nallely Saravia MD [address] [place] [id number] Assigned Cancer Care Provider 06/23/23
--- OUTSIDE RECORDS SUMMARY | 2023-10-01 13:45 | XMS_ITS | Referral Summary ---
Author Organization [facility] Address [address] [place] [address]. [place] [address] Care Team Providers Care Chief Dispatcher Name Role Phone HenryciraEmmanuel MD Unavailable [phone] Anthony Leyva MD Unavailable + [phone] Anthony Leyva MD Unavailable Emil Cope MD Primary Care Provider Anthony Mazariegos MD Unavailable Nallely Saravia MD Unavailable Encounters Date Type Department Care Team Description 09/25/2023 Documentation Only [facility] [address] [place] [phone] Estela Adam Hypokalemia (Primary Dx); Acute on chronic diastolic heart failure (H); Stage 3 chronic kidney disease, unspecified whether stage 3a or 3b CKD (H) 09/25/2023 Refill [facility] [address] [place] [phone] Anthony Mazariegos MD Medication Refill 09/23/2023 2:18 PM CDT - 09/23/2023 11:59 PM CDT Hospital Encounter [facility] [address] [place] [phone] Anthony Mazariegos MD Acute on chronic diastolic heart failure (H); Stage 3 chronic kidney disease, unspecified whether stage 3a or 3b CKD (H); Essential hypertension; Iron malabsorption; Permanent atrial fibrillation (H); VAINNEY (obstructive sleep apnea); Heart failure with preserved ejection fraction, unspecified HF chronicity (H); Chronic heart failure with preserved ejection fraction (H) Discharge Disposition: Home or Self Care 09/23/2023 Travel 09/23/2023 1:20 PM CDT Office Visit [address] [phone] Anthony Mazariegos MD Acute on chronic diastolic heart failure (H); Stage 3 chronic kidney disease, unspecified whether stage 3a or 3b CKD (H); Essential hypertension; Iron malabsorption; Permanent atrial fibrillation (H); VIANNEY (obstructive sleep apnea); Heart failure with preserved ejection fraction, unspecified HF chronicity (H); Chronic heart failure with preserved ejection fraction (H) 08/24/[address] [phone] Shaila Mota, [employer] Medication Refill from Last 3 Months Allergies Active Allergy [...] Single kidney 02/17/2011 Overview: 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 Post-op serum creatinine [...] Description 11/10/2023 3:20 PM CDT Office Visit [facility] [address] [place] [phone] Anthony Mazariegos MD [address] [facility] [address] [place] [address] Medical Devices Implanted Type Area Lathmaker Device Identifier Shelf Expiration Date Model / Serial / Lot Bone Cement Simplex Full Dose 6191-1-001 Implanted:Qty: 2 on 03/29/2013 by Eric Pepper MD at [facility] Left: Knee [employer] 07/31/2015 6191-1-001 / / [id number] Imp Comp Fem Strk Triathln Cr Lt 6 [id number]-[id number] Implanted:Qty: 1 on 03/29/2013 by Eric Pepper MD at [facility] Left: Knee [employer] 10/30/2017 [id number]-F-601 / / [id number] Imp Baseplate Tibial Howm Tri 6 [id number]-[id number]-600 Implanted:Qty: 1 on 03/29/2013 by Eric Pepper MD at [facility] Left: Knee [employer] 03/01/2018 5520-[id number]-600 / / [id number] Imp Comp Patella Tri [id number] 5550-G-360 Implanted:Qty: 1 on 03/29/2013 by Eric Pepper MD at [facility] Left: Knee [employer] 01/29/2018 5550-G-360 / / [id number] Imp Insert Tibial Howm Tri 6x09mm 5530-[id number] Implanted:Qty: 1 on 03/29/2013 by Eric Pepper MD at [facility] Left: Knee [email or web address] 01/29/2018 5530-G-[id number] / / [id number] Procedures Procedure [...] CDT EXAM: XR CHEST 2 VIEWS LOCATION: [facility] DATE: 09/23/2023 INDICATION: ??Acute on chronic diastolic heart failure (H), Stage 3 chronic kidney disease, unspecified whether stage 3a or 3b CKD (H), Essential hypertension, Iron malabsorption, Permanent atrial fibrillation (H), VIANNEY (obstructive sleep apnea), Heart failure with preserved ejection fraction, unspecified HF chr COMPARISON: 11/07/2010 Procedure Note Miguel Angel Staley MD - 09/23/2023 EXAM: XR CHEST 2 VIEWS LOCATION: [facility] DATE: 09/23/2023 INDICATION: Acute on chronic [...] (ABNORMAL) Comprehensive metabolic panel (09/23/2023 2:10 PM T) Sodium 140 135 - 145 mmol/L 09/23/2023 5:23 PM [facility] Potassium 3.7 3.4 - 5.3 mmol/L 09/23/2023 5:23 PM [facility] Carbon Dioxide (CO2) 31(H) 22 - 29 mmol/L 09/23/2023 5:23 PM [facility] Anion Gap 11 7 - 15 mmol/L 09/23/2023 5:23 PM [facility] Urea Nitrogen 55.7(H) 8.0 - 23.0 mg/dL 09/23/2023 5:23 PM [facility] Creatinine 2.27(H) 0.67 - 1.17 mg/dL 09/23/2023 5:23 PM [facility] GFR Estimate 28(L) >60 mL/min/1.7 3m2 09/23/2023 5:23 PM [facility] Comment:eGFR calculated usin g 2020 CKD-EPI equation. Calcium 10.0 8.8 - 10.4 mg/dL 09/23/2023 5:23 PM [facility] Comment:Reference intervals for this test were updated on 09/15/2023 to reflect our healthy population more accurately. There may be differences in the flagging of prior results with similar values performed with this method. Those prior results can be interpreted in the context of the updated reference intervals. Chloride 98 98 - 107 mmol/L 09/23/2023 5:23 PM CDT [facility] Glucose 79 70 - 99 mg/dL 09/23/2023 5:23 PM CDT [facility] Alkaline Phosphatase 105 40 - 150 U/L 09/23/2023 5:23 PM CDT [facility] AST 25 0 - 45 U/L 09/23/2023 5:23 PM CDT [facility] ALT 18 0 - 70 U/L 09/23/2023 5:23 PM CDT [facility] Protein Total 7.7 6.4 - 8.3 g/dL 09/23/2023 5:23 PM CDT [facility] Albumin 4.2 3.5 - 5.2 g/dL 09/23/2023 5:23 PM CDT [facility] Bilirubin Total 1.1 <=1.2 mg/dL 09/23/2023 5:23 PM CDT [facility] Blood STRUCTURE OF RIGHT UPPER LIMB / Unknown Venipuncture / Unknown 09/23/2023 2:10 PM CDT 09/23/2023 5:03 PM CDT Anthony Mazariegos MD LAB - BLOOD ORDERABL ES [facility] [address] [place] [address], [place] * (ABNORMAL) CBC with platelets (09/23/2023 2:10 PM CDT) Pathologist [facility] WBC Count 12.2(H) 4.0 - 11.0 10e3/uL 09/23/2023 5:08 PM CDT [facility] RBC Count 3.75(L) 4.40 - 5.90 10e6/uL 09/23/2023 5:08 PM CDT [facility] Hemoglobin 11.6(L) 13.3 - 17.7 g/dL 09/23/2023 5:08 PM CDT [facility] Hematocrit 35.8(L) 40.0 - 53.0 % 09/23/2023 5:08 PM CDT [facility] MCV 96 78 - 100 fL 09/23/2023 5:08 PM CDT [facility] MCH 30.9 26.5 - 33.0 pg 09/23/2023 5:08 PM CDT [facility] MCHC 32.4 31.5 - 36.5 g/dL 09/23/2023 5:08 PM CDT [facility] RDW 14.7 10.0 - 15.0 % 09/23/2023 5:08 PM CDT [facility] Platelet Count 173 150 - 450 10e3/uL 09/23/2023 5:08 PM CDT [facility] Blood STRUCTURE OF RIGHT UPPER LIMB / Unknown Venipuncture / Unknown 09/23/2023 2:10 PM CDT 09/23/2023 5:03 PM CDT Anthony Mazariegos MD LAB - BLOOD ORDERABL ES Performing Organization Address City/[facility]/ZIP Co de Phone Number [facility] [address] [place] [id number] [place] [address] * TSH with free T4 reflex (12/16/2021 4:38 AM CDT) Pathologist [facility] TSH 1.56 0.30 - 5.00 uIU/mL 12/16/2021 5:56 AM CDT [facility] Blood STRUCTURE OF RIGHT UPPER LIMB / Unknown Venipuncture / Unknown 12/16/2021 4:38 AM CDT 12/16/2021 5:14 AM CDT Tutu Collier MD LAB - BLOOD ORDERABL ES [facility] [address] [place] [address], [place] [phone] * COLONOSCOPY (12/13/2021 9:53 AM CDT) Pathologist [facility] COLONOSCOPY M [facility] [address] ??[place] [address] Patient Name: Tutu Ngo ?Procedure Date: 12/13/2021 9:53 AM ? Date of : 1940 ?Admit Type: Inpatient Age: 81 ? Room: [place] [address] Note Status: Finalized ?Attending MD: JOSE DIALLO [...] of the exam. Signature of teaching physician Cam/Mattie DIALLO Number of Addenda: 0 Note Initiated On: 12/13/2021 9:53 AM Scope In: 10:00:34 AM Scope Out: 10:41:53 AM RADIOLOGY RESULTS 12/13/2021 9:53 AM CDT Jose Diallo MD PROCEDURES RADIOLOGY RESULTS * (ABNORMAL) Lipid Panel (External Result) (11/26/2021 1:34 PM CDT) Cholesterol (External) 109 90 - 199 mg/dL [facility] Triglycerides (External) 114 40 - 149 mg/dL [facility] HDL Cholesterol (External) 36(A) >=40 mg/dL [facility] LDL Cholesterol Calculated (External) 50 <100 mg/dL [facility] Blood 11/26/2021 1:34 PM CDT Narrative [facility] - 11/26/2021 1:34 PM CDT LAB RESULT [facility] Provider Outside LAB - HIM EXTERNAL R ESULT Performing Organization Address City/[facility]/ZIP Co de Phone Number [facility] [address] [place], [place] [address] [phone] from Last 3 Months or Most Recently Relevant to Health Maintenance Advance Directives For more information, please contact: [phone] * Full Code (Latest Code Status on File) Date Activated Date Inactivated Comments 12/12/2021 1:28 PM 12/20/2021 3:31 PM All basic and advanced life-sustaining interventions are performed as appropriate Question Answer Comments Code status determined by: Discussion with patie nt/ legal decision maker * Full Code Date Activated Date Inactivated Comments 03/29/2013 6:39 PM 03/31/2013 5:03 PM Care Teams Chief Dispatcher Relationship Specialty Start Date End Date Emil Cope MD [facility] [address] [place] [address] PCP - General Emergency Medicine 09/30/22 [place] [address] [place] [address] [place] [address] Hematology 02/07/22 Anthony Leyva MD [address] [place] [address] Gastroenterology 02/07/22 Anthony Leyva MD [address] [place] [address] Assigned Gastroenterology Provider 04/12/22 Anthony Mazariegos MD [address] [facility] [address] [place] [address] Assigned Heart and Vascular Provider 01/17/23 Nallely Saravia MD [address] [place] [address] Assigned Cancer Care Provider 06/23/23
--- OUTSIDE RECORDS SUMMARY | 2023-10-01 13:46 | XMS_ITS | Encounter Summary ---
Author Organization [facility] Address [facility] [address] Care Team Providers Care Pulmonary Specialist Name Role Phone Henrycira Emmanuel Meier MD Unavailable [phone] Anthony Leyva MD Unavailable + [phone] Anthony Leyva MD Unavailable + [phone] Emil Cope MD Primary Care Provider Anthony Mazariegos MD Unavailable [phone] Nallely Saravia MD Unavailable Encounter Details Date Type Department Care Team (Latest Contact Info) Description 09/23/2023 Travel Social History Tobacco Use Types Packs/Day [...] Description 11/10/2023 3:20 PM CDT Office Visit [address] [place] [phone] Anthony Mazariegos MD [address] [facility] [address] [place] [address] documented as of this encounter Visit Diagnoses Not on filedocumented in this encounter Care Teams Pulmonary Specialist Relationship Specialty Start Date End Date Emil Cope MD [facility] [address] [place] [address] PCP - General Emergency Medicine 09/30/22 Emmanuel Nobles MD [address] [place] [address] [place] [address] Hematology 02/07/22 Anthony Leyva MD [address] [place] [address] Gastroenterology 02/07/22 Anthony Leyva MD [address] [place] [address] Assigned Gastroenterology Provider 04/12/22 Anthony Mazariegos MD [address] [facility] [address] [place] [address] Assigned Heart and Vascular Provider 01/17/23 Nallely Saravia MD [address] [place] [address] Assigned Cancer Care Provider 06/23/23 documented as of this encounter
--- OUTSIDE RECORDS SUMMARY | 2023-10-01 13:46 | XMS_ITS | Encounter Summary ---
Author Organization [facility] Address [address] [place] [address]. [place] [address] Care Team Providers Care Brickmason Supervisor Name Role Phone Emmanuel Nobles MD Unavailable [phone] Anthony eLyva MD Unavailable + [phone] Anthony Leyva MD Unavailable + [phone] Emil Cope MD Primary Care Provider Anthony Mazariegos MD Unavailable [phone] Nallely Saravia MD Unavailable Reason for Referral * Consultation (Routine: [...] ejection fraction (H) Anthony Mazariegos MD [address] [facility] [address] [place] [address] Referral ID Status Reason Start Date Expiration Date V isits Requested Visits Authorized [id number] Pending Review 09/23/2023 09/22/2024 1 1 Question Answer Preferred Location: LTAC, located within [facility] Follow-up with: Self Scheduling Instructions: [facility] will call you to coordinate your care as prescribed by your provider. If you have concerns about scheduling, please call [phone]. Comments [facility] will call you to coordinate your care as prescribed by your provider. If you have concerns about scheduling, please call [phone]. * Diagnostic Imaging XR (Routine) - Pending Review Specialty Diagnoses / Procedures Referred By Madeleine watters Referred To Contact Radiology. Diagnoses Acute on chronic diastolic heart failure (H) Stage 3 chronic kidney disease, unspecified whether stage 3a or 3b CKD (H) Essential hypertension Iron malabsorption Permanent atrial fibrillation (H) VIANNEY (obstructive sleep apnea) Heart failure with preserved ejection fraction, unspecified HF chronicity (H) Chronic heart failure with preserved ejection fraction (H) Procedures XR Chest 2 Views Anthony Mazariegos MD [address] [facility] [address] [place] [address] Referral ID Status Reason Start Date Expiration Date V isits Requested Visits Authorized [id number] Pending Review 09/23/2023 09/22/2024 1 1 Reason for Visit * Reason Comments Follow Up * Consultation (Routine: Next available opening) - Pending Review Specialty Diagnoses / Procedures Referred By Madeleine watters Referred To Contact Cardiovascular Disease Diagnoses Acute on chronic diastolic heart failure (H) Stage 3 chronic kidney disease, unspecified whether stage 3a or 3b CKD (H) Essential hypertension Iron malabsorption Permanent atrial fibrillation (H) VIANNEY (obstructive sleep apnea) Heart failure with preserved ejection fraction, unspecified HF chronicity (H) Chronic heart failure with preserved ejection fraction (H) Anthony Mazariegos MD [address] [facility] [address] [place] [address] Referral ID Status Reason Start Date Expiration Date V isits Requested Visits Authorized [id number] Pending Review 01/13/2023 01/13/2024 1 1 Encounter Details Date Type Department Care Team (Late st Contact Info) Description 09/23/2023 1:20 PM CDT Office Visit [facility] [place] [id number] [facility] [address] [place] [phone] Anthony Mazariegos MD [address] [facility] [address] [place] [address] Acute on chronic diastolic heart failure (H); [...] Pulse 87 09/23/2023 1:10 PM CDT Temperature - - Respiratory Rate 20 09/23/2023 1:10 PM CDT Oxygen Saturation 94% 09/23/2023 1:10 PM CDT Inhaled Oxygen Concentration - - Weight 112.4 kg (247 lb 12.8 oz) 09/23/2023 1:10 PM CDT Height - - Body Mass Index 34.56 05/11/2023 1:08 PM CDT documented in this encounter Progress Notes * Anthony Mazariegos MD - 09/23/2023 1:20 PM CDT Images from the original note were not included. [facility] Heart [facility] [phone] Assessment/Recommendations Patient with known heart failure with preserved ejection fraction, mild renal insufficiency, obstructive sleep apnea, and permanent atrial fibrillation. He has been having more difficulties with orthopnea, and shortness of breath. He feels like his functional capacity is diminished. He admits to some sodium indiscretion as well as a weight gain of about 10 pounds since May. I do believe he has evidence of pulmonary vascular congestion with some diminished breath sounds at the bases, increasedjugular venous pressure and positive hepatojugular reflux. He has mild peripheral edema. I would like to check a complete metabolic panel today and also a CBC given his myelodysplastic syndrome. If his lab work is unremarkable, we will likely temporarily increase his metolazone. Will also check a chest x-ray today as he had significant relief of dyspnea with thoracentesis when he firstpresented with heart failure with preserved ejection fraction and would like to make sure he does not have significant pleural effusions at this time. We will get a chest x- ray today and call him with the results either late today or tomorrow. Thank you for allowing us to participate in his care. If difficulty with improvements in his breathing, would have a low threshold for pharmacologic nuclear study. He will need early follow-up and we will plan a follow-up visit in 1 month. The longitudinal plan of care for the diagnosis(es)/condition(s) as documented were addressed during this visit. Due to the added complexity in care, I will continue to support Tutu in the subsequent management and with ongoing continuity of care. History of Present Illness/Subjective Mr. Tutu Ngo is a 83 year old male with known heart failure with preserved ejection fraction. Patient has noted a gradual worsening of his shortness of breath. Since May of this year he is picked up 10 pounds and does admit to some sodium indiscretion. He has not had any chest pains. He does have orthopnea and possibly paroxysmal nocturnal dyspnea. Very mild peripheral edema. No palpitations, syncope or near syncopal episodes. Physical Examination Review of Systems BP 114/66 (BP Location: Left arm, Patient Position: Sitting, Cuff Size: Adult Large) Pulse 87 Resp 20 Wt 112.4 kg (247 lb 12.8 oz) SpO2 94% BMI 34.56 kg/m?? Body mass index is 34.56 kg/m??. Wt Readings from Last 3 Encounters: 09/23/23 112.4 kg (247 lb 12.8 oz) 05/11/23 111.6 kg (246 lb) 01/13/23 110.5 kg (243 lb 8 oz) General Appearance: Alert, cooperative and in no acute distress. ENT/Mouth: [place]/moist oral mucosa EYES: no scleral icterus, normal conjunctivae Neck: JVP 12 cm. Positive hepatojugular reflux. Thyroid not visualized. Chest/Lungs: Lungs have diminished breath sounds at the bases, equal chest wall expansion. Cardiovascular: S1, S2 without murmur ,clicks or rubs. Brachial, radial pulses are intact and symetric. No carotid bruits noted Abdomen: Nontender. BS+. Extremities: No cyanosis, clubbing and mild pretibial edema Skin: no xanthelasma, warm. Neurologic: normal arm movement bilateral, no tremors Psychiatric: Appropriate affect. Enc Vitals BP: 114/66 Pulse: 87 Resp: 20 SpO2: 94 % Weight: 112.4 kg (247 lb 12.8 oz) Medical History Surgical History Family History Social [...] PLACEMENT; Surgeon: Jose Alberto Diallo MD; Location: [facility] OR ESOPHAGOSCOPY, GASTROSCOPY, DUODENOSCOPY (EGD), COMBINED N/A 12/13/2021 Procedure: ESOPHAGOGASTRODUODENOSCOPY (EGD) WITH BIOPSIES; Surgeon: Jose Alberto Diallo MD; Location: [facility] OR HERNIA REPAIR left nephrectomy[ [...] Never Smokeless tobacco: Never Vaping Use Vaping status: Never Used Substance and Sexual Activity Alcohol use: Yes Comment: very rare Drug use: No Sexual activity: Not Currently Other Topics Concern Parent/sibling w/ CABG, MD or angioplasty before 65F 55M? Not Asked Social History Narrative Not on file Social Determinants of Health Financial Resource Strain: High Risk (02/27/2021) [facility] from [facility], [employer] [facility] Financial Resource Strain Difficulty of Paying Living Expenses: Not on file Difficulty of Paying Living Expenses: Not on file Food Insecurity: Not on file Transportation Needs: Not on file Physical Activity: Not on file Stress: Not on file Social Connections: Unknown (02/27/2021) Received from [employer] [facility], [employer] [facility] Social Connections Frequency of Communication with Friends and Family: Not on file Interpersonal Safety: Not on file Housing Stability: Not on file Medications Allergies Current Outpatient Medications Medication Sig Dispense Refill allopurinol (ZYLOPRIM) 100 MG tablet Take 200 mg by mouth daily apixaban ANTICOAGULANT (ELIQUIS ANTICOAGULANT) 2.5 MG tablet TAKE 1 TABLET (2.5 MG) BY MOUTH 2 TIMES DAILY 60 tablet 5 bumetanide (BUMEX) 2 MG tablet TAKE 1 TABLET (2 MG) BY MOUTH 2 TIMES DAILY (WATER PILL FOR HEART) 180 tablet 4 desoximetasone (TOPICORT) 0.25 % external cream APPLY TOPICALLY TWICE A DAY NEEDED Glucosamine-Chondroitin (COSAMIN DS PO) Take by mouth 2 times daily Cosamin DS 500/400 mg JARDIANCE 10 MG TABS tablet TAKE 1 TABLET (10 MG) BY MOUTH DAILY (FOR HEART MUSCLE) 30 tablet 3 metolazone (ZAROXOLYN) 2.5 MG tablet Take 1 tablet twice weekly 24 tablet 4 potassium chloride brett ER (KLOR-CON M10) 10 MEQ CR tablet TAKE 4 TABLETS (40 MEQ) BY MOUTH DAILY 120 tablet 2 tamsulosin (FLOMAX) 0.4 MG capsule Take 0.4 mg by mouth daily Allergies Allergen Reactions Furosemide Rash Folic Acid Diarrhea Claims to folic acid intolerant, causes diarrhea. Norvasc [Amlodipine Besylate] Swelling of right leg Lab Results Chemistry/lipid CBC Cardiac Enzymes/BNP/TSH/INR Lab Results Component Value Date TRIG 114 11/26/2021 BUN 39.2 (H) 01/13/2023 NA 139 01/13/2023 CO2 32 (H) 01/13/2023 Lab Results Component Value Date WBC 10.9 07/17/2022 HGB 12.4 (L) 07/17/2022 HCT 37.2 (L) 07/17/2022 MCV 95 07/17/2022 PLT 177 07/17/2022 Lab Results Component Value Date TSH 1.56 12/16/2021 INR 1.67 (H) 12/12/2021 documented in this encounter Plan of Treatment Upcoming Encounters Date Type Department Care Team (Late st Contact Info) Description 11/10/2023 3:20 PM CDT Office Visit [place] [id number] [facility] [address] [place] [address] Anthony Mazariegos MD [address] [facility] [address] [place] [address] Scheduled Referrals Name Type Priority Associated Diagnoses [...] failure with preserved ejection fraction (H) Expected: 10/24/2023 (Approximate), Expires: 09/22/2024 documented as of this encounter Procedures Procedure Name Priority Date/Time Associated Diagnosis Comments COMPREHENSIVE METABOLIC PANEL Routine 09/23/2023 2:10 PM [...] (H) documented in this encounter Results * XR Chest 2 Views (09/23/2023 2:29 PM CDT) Anatomical Region Laterality Modality Chest Digital Radiogra phy 09/23/2023 2:29 PM CDT Impressions 09/23/2023 2:42 PM CDT IMPRESSION: Cardiomegaly. Pulmonary venous hypertension. There are interstitial opacities in both lungs suggesting pulmonary edema. No pleural effusions. No consolidation. Narrative 09/23/2023 2:42 PM CDT EXAM: XR CHEST 2 VIEWS LOCATION: [facility] DATE: 09/23/2023 INDICATION: ??Acute on chronic diastolic heart failure (H), Stage 3 chronic kidney disease, unspecified whether stage 3a or 3b CKD (H), Essential hypertension, Iron malabsorption, Permanent atrial fibrillation (H), VIANNEY (obstructive sleep apnea), Heart failure with preserved ejection fraction, unspecified HF chr COMPARISON: 11/07/2010 Procedure Note Miguel Angel Staley MD - 09/23/2023 EXAM: XR CHEST 2 VIEWS LOCATION: [facility] DATE: 09/23/2023 INDICATION: Acute on chronic [...] IMG DIAGNOSTIC IMAGI NG ORDERABLES * (ABNORMAL) CBC with platelets (09/23/2023 2:10 PM CDT) Pathologist [facility] WBC Count 12.2(H) 4.0 - 11.0 10e3/uL 09/23/2023 5:[address] [facility] RBC Count 3.75(L) 4.40 - 5.90 10e6/uL 09/23/2023 5:[address] [facility] Hemoglobin 11.6(L) 13.3 - 17.7 g/dL 09/23/2023 5:[address] [facility] Hematocrit 35.8(L) 40.0 - 53.0 % 09/23/2023 5:[address] [facility] MCV 96 78 - 100 fL 09/23/2023 5:[address] [facility] MCH 30.9 26.5 - 33.0 pg 09/23/2023 5:[address] [facility] MCHC 32.4 31.5 - 36.5 g/dL 09/23/2023 5:[address] [facility] RDW 14.7 10.0 - 15.0 % 09/23/2023 5:[address] [facility] Platelet Count 173 150 - 450 10e3/uL 09/23/2023 5:[address] [facility] Blood STRUCTURE OF RIGHT UPPER LIMB / Unknown Venipuncture / Unknown 09/23/2023 2:10 PM CDT 09/23/2023 5:03 PM CDT Anthony Mazarieogs MD LAB - BLOOD ORDERABL ES [facility] [address] [facility] [address] [place] [address], [facility] * (ABNORMAL) Comprehensive metabolic panel (09/23/2023 2:10 PM CDT) [facility] Sodium 140 135 - 145 mmol/L 09/23/2023 5:[address] [facility] Potassium 3.7 3.4 - 5.3 mmol/L 09/23/2023 5:[address] [facility] Carbon Dioxide (CO2) 31(H) 22 - 29 mmol/L 09/23/2023 5:23 PM [facility] Anion Gap 11 7 - 15 mmol/L 09/23/2023 5:23 PM [facility] Urea Nitrogen 55.7(H) 8.0 - 23.0 mg/dL 09/23/2023 5:23 PM [facility] Creatinine 2.27(H) 0.67 - 1.17 mg/dL 09/23/2023 5:23 PM [facility] GFR Estimate 28(L) >60 mL/min/1.7 3m2 09/23/2023 5:23 PM [facility] Comment:eGFR calculated us2020 CKD-EPI equation. Calcium 10.0 8.8 - 10.4 mg/dL 09/23/2023 5:23 PM [facility] Comment:Reference intervals for this test were updated on 09/15/2023 to reflect our healthy population more accurately. There may be differences in the flagging of prior results with similar values performed with this method. Those prior results can be interpreted in the context of the updated reference intervals. Chloride 98 98 - 107 mmol/L 09/23/2023 5:23 PM [facility] Glucose 79 70 - 99 mg/dL 09/23/2023 5:23 PM [facility] Alkaline Phosphatase 105 40 - 150 U/L 09/23/2023 5:23 PM [facility] AST 25 0 - 45 U/L 09/23/2023 5:23 PM [facility] ALT 18 0 - 70 U/L 09/23/2023 5:23 PM [facility] Protein Total 7.7 6.4 - 8.3 g/dL 09/23/2023 5:23 PM [facility] Albumin 4.2 3.5 - 5.2 g/dL 09/23/2023 5:23 PM [facility] Bilirubin Total 1.1 <=1.2 mg/dL 09/23/2023 5:23 PM [facility] Blood STRUCTURE OF RIGHT UPPER LIMB / Unknown Venipuncture / Unknown 09/23/2023 2:10 PM CDT 09/23/2023 5:03 PM T Anthony Mazariegos MD LAB - BLOOD ORDERABL ES [facility] [address] [facility] [place] [address] documented in this encounter Visit Diagnoses Diagnosis [...] heart failure with preserved ejection fraction (H) Acute on chronic diastolic heart failure (H) [...] (H) documented in this encounter Care Teams Brickmason Supervisor Relationship Specialty Start Date End Date Emil Cope MD [facility] [address] [place] [address] PCP - General Emergency Medicine 09/30/22 Emmanuel Nobles MD [address] [facility] [place] [address] Hematology 02/07/22 Anthony Leyva MD [address] [place] [address] Gastroenterology 02/07/22 Anthony Leyva MD [address] [place] [address] Assigned Gastroenterology Provider 04/12/22 Anthony Mazariegos MD [address] [facility] [address] [place] [address] Assigned Heart and Vascular Provider 01/17/23 Nallely Saravia MD [address] [place] [address] Assigned Cancer Care Provider 06/23/23 documented as of this encounter
--- OUTSIDE RECORDS SUMMARY | 2023-10-01 13:46 | XMS_ITS | Encounter Summary ---
Author Organization [employer] Address [address] [place] [address]. [place] [address] Care Team Providers Care Online Advertising Analyst Name Role Phone Emmanuel Nobles MD Unavailable [phone] Anthony Leyva MD Unavailable [phone] Anthony Leyva MD Unavailable [phone] Emil Cope MD Primary Care Provider Anthony Mazariegos MD Unavailable Nallely Saravia MD Unavailable Reason for Referral * Diagnostic Imaging XR (Routine) - Pending Review Specialty Diagnoses / Procedures Referred By Contac t Referred To Contact Radiology. Diagnoses Acute on [...] Chest 2 Views Anthony Mazariegos MD [address] [facility] [address] [place] [address] Referral ID Status Reason Start Date Expiration Date V isits Requested Visits Authorized [id number] Pending Review 09/23/2023 09/22/2024 1 1 Reason for Visit * Diagnostic Imaging XR (Routine) - Pending Review Specialty Diagnoses / Procedures Referred By Contac t Referred To Contact Radiology. Diagnoses Acute on [...] Chest 2 Views Anthony Mazariegos MD [address] [facility] [address] [place] [address] Referral ID Status Reason Start Date Expiration Date V isits Requested Visits Authorized [id number] Pending Review 09/23/2023 09/22/2024 1 1 Encounter Details Date Type Department Care Team (Latest Contact Info) Description 09/23/2023 2:18 PM CDT - 09/23/2023 11:59 PM CDT Hospital Encounter [facility] Diagnostic Imaging [facility] [place] [address] Anthony Mazariegos MD [address] [facility] [address] [place] [address] Acute on chronic diastolic heart [...] on file documented as of this encounter Medications at Time of Discharge Medication Sig Dispensed Refills Start Date End Date allopurinol (ZYLOPRIM) 100 MG tablet Take 200 mg by mouth daily apixaban ANTICOAGULANT (ELIQUIS ANTICOAGULANT) 2.5 MG tabletIndications:Perma nent atrial fibrillation (H) TAKE 1 TABLET (2.5 MG) BY MOUTH 2 TIMES DAILY 60 tablet 5 05/26/2023 bumetanide (BUMEX) 2 MG tabletIndications:Chron ic heart failure with preserved ejection fraction (H) TAKE 1 TABLET (2 MG) BY MOUTH 2 TIMES DAILY (WATER PILL FOR HEART) 180 tablet 4 2023 desoximetasone (TOPICORT) 0.25 % external cream APPLY TOPICALLY TWICE A DAY NEEDED 12/30/2021 Glucosamine-Chondroitin (COSAMIN DS PO) Take by mouth 2 times daily Cosamin DS 500/400 mg JARDIANCE 10 MG TABS tabletIndications:Chron ic heart failure with preserved ejection fraction (H) TAKE 1 TABLET (10 MG) BY MOUTH DAILY (FOR HEART MUSCLE) 30 tablet 3 05/18/2023 metolazone (ZAROXOLYN) 2.5 MG tabletIndications:Chron ic heart failure with preserved ejection fraction (H) Take 1 tablet twice weekly 24 tablet 4 09/15/2022 tamsulosin (FLOMAX) 0.4 MG capsule Take 0.4 mg by mouth daily potassium chloride brett ER (KLOR-CON M10) 10 MEQ CR tabletIndications:Hypok alemia TAKE 4 TABLETS (40 MEQ) BY MOUTH DAILY 120 tablet 2 06/18/2023 09/25/2023 documented as of this encounter Plan of Treatment Upcoming Encounters Date Type Department Care Team (Late st Contact Info) Description 11/10/2023 3:20 PM CDT Office Visit [facility] [address] [place] [phone] Anthony Mazariegos MD [address] [facility] [address] [place], [place] [id number] documented as of this encounter Procedures Procedure [...] CDT EXAM: XR CHEST 2 VIEWS LOCATION: [facility] DATE: 09/23/2023 INDICATION: ??Acute on chronic diastolic heart failure (H), Stage 3 chronic kidney disease, unspecified whether stage 3a or 3b CKD (H), Essential hypertension, Iron malabsorption, Permanent atrial fibrillation (H), VIANNEY (obstructive sleep apnea), Heart failure with preserved ejection fraction, unspecified HF chr COMPARISON: 11/07/2010 Procedure Note Miguel Angel Staley MD - 09/23/2023 EXAM: XR CHEST 2 VIEWS LOCATION: [facility] DATE: 09/23/2023 INDICATION: Acute on chronic diastolic [...] Mazariegos MD IMG DIAGNOSTIC IMAGI NG ORDERABLES documented in this encounter Visit Diagnoses Diagnosis [...] (H) documented in this encounter Care Teams Online Advertising Analyst Relationship Specialty Start Date End Date Emil Cope MD [facility] [address] [place] [address] PCP - General Emergency Medicine 09/30/22 [place] [address] [place] [address] [place] [address] Hematology 02/07/22 Anthony Leyva MD [address] [place] [address] Gastroenterology 02/07/22 Anthony Leyva MD [address] [place] [address] Assigned Gastroenterology Provider 04/12/22 Anthony Mazariegos MD [address] [facility] [address] [place] [address] Assigned Heart and Vascular Provider 01/17/23 Nallely Saravia MD [address] [place] [address] Assigned Cancer Care Provider 06/23/23 documented as of this encounter
--- OUTSIDE RECORDS SUMMARY | 2023-10-01 13:46 | XMS_ITS | Encounter Summary ---
Author Organization [employer] Address [facility] [place] [address] Care Team Providers Care Bit Sharpener Name Role Phone HenryciraEmmanuel MD Unavailable [phone] Anthony Leyva MD Unavailable [phone] Anthony Leyva MD Unavailable + [phone] Evaristo Stack CNP Unavailable [phone] Emil Cope MD Primary Care Provider Anthony Mazariegos MD Unavailable [phone] Nallely Saravia MD Unavailable Reason for Visit * Reason Comments Medication Refill Encounter Details Date Type Department Care Team (Late st Contact Info) Description 02/17/2023 Refill [place] [id number] [facility] [address] [place] [phone] Anthony Mazariegos MD [address] [facility] [address] [place] [address] Medication Refill Social History Tobacco [...] Description 11/10/2023 3:20 PM CDT Office Visit [facility] [address] [facility] [address] [place] [address] Anthony Mazariegos MD [address] [facility] [address] [place] [address] documented as of this encounter Visit Diagnoses Not on filedocumented in this encounter Care Teams Bit Sharpener Relationship Specialty Start Date End Date Emil Cope MD [facility] [address] [place] [address] PCP - General Emergency Medicine 09/30/22 Emmanuel Nobles MD [address] [place] [address] Hematology 02/07/22 Anthony Leyva MD [address] [place] [address] Gastroenterology 02/07/22 Anthony Leyva MD [address] [place] [address] Assigned Gastroenterology Provider 04/12/22 Evaristo Stack CNP [address] [place] [address] Assigned Cancer Care Provider 07/26/22 06/22/23 Anthony Mazariegos MD [address] [facility] [address] [place], [place] [id number] Assigned Heart and Vascular Provider 01/17/23 Nallely Saravia MD [address] [place] [id number] Assigned Cancer Care Provider 06/23/23 documented as of this encounter
--- OUTSIDE RECORDS SUMMARY | 2023-10-01 13:46 | XMS_ITS | Encounter Summary ---
Author Organization [place] Address [facility]0 [facility] [place] [place] [address] Care Team Providers Care Certified Medical Asst Name Role Phone Anthony Mazariegos MD Primary Care Provider [phone] Emmanuel Nobles MD Unavailable [phone] Anthony Leyva MD Unavailable + [phone] Verona Mclain SUPERVISOR FERTILIZER PROCESSING BELT CLEANER Unavailable [phone] Anthony Leyva MD Unavailable + [phone] Shaila Mota APRN BELT CLEANER Unavailable Unavailable Evaristo Stack BELT CLEANER Unavailable [phone] Anthony Mazariegos MD Unavailable [phone] Shaila Mota APRN BELT CLEANER Unavailable Unavailable Emil Cope MD Primary Care Provider Anthony Mazariegos MD Unavailable [phone] Nallely Saravia MD Unavailable Encounter Details Date Type Department Care Team (Late st Contact Info) Description 05/30/2022 [facility] Heart [facility] Er [address] [facility] [address] [place] [address] Unknown, Provider Social History Tobacco [...] Description 11/10/2023 3:20 PM CDT Office Visit [facility] [address] [facility] [address] [place] [phone] Anthony Mazariegos MD [address] [facility] [address] [place] [address] documented as of this encounter Procedures Procedure Name Priority Date/Time Associated Diagnosis Comments LAB RESULT - HIM SCAN Routine 05/30/2022 documented in this encounter Results * Lab Result - HIM Scan (05/30/2022) Provider Unknown MH NON-BEAKER LAB TE STING documented in this encounter Visit Diagnoses Not on filedocumented in this encounter Care Teams Certified Medical Asst Relationship Specialty Start Date End Date Anthony Mazariegos MD 1600 [facility] 200 [place] [address] PCP - General Cardiovascular Disease 01/14/22 3 Emil Cope MD [facility] 1999 [place] [address] PCP - General Emergency Medicine 09/30/22 Emmanuel Nobles MD [address] [place] [address] [place] [address] Hematology 02/07/22 Anthony Leyva MD [address] [place] [address] Gastroenterology 02/07/22 Verona Mclain APRN BELT CLEANER 15[address] [place] [address] Assigned Cancer Care Provider 04/05/22 07/25/22 Anthony Leyva MD [address] [place] [address] Assigned Gastroenterology Provider 04/12/22 Shaila Mota APRN BELT CLEANER [address] [place] [address] Assigned Heart and Vascular Provider 05/17/22 07/18/22 Evaristo Stack, BELT CLEANER [facility] Julia Cort[address] [facility] [address] [place] [address] Assigned Cancer Care Provider 07/26/22 06/22/23 Anthony Mazariegos MD 1600 [facility] 200 [place] [address] Assigned Heart and Vascular Provider 07/19/22 09/19/22 Shaila Mota APRN BELT CLEANER Assigned Heart and Vascular Provider 09/20/22 01/16/23 Anthony Mazariegos MD 1600 [facility] 200 [place] [address] Assigned Heart and Vascular Provider 01/17/23 Nallely Saravia MD [address] [place], [place] [address] Assigned Cancer Care Provider 06/23/23 documented as of this encounter
--- OUTSIDE RECORDS SUMMARY | 2023-10-01 13:46 | XMS_ITS | Encounter Summary ---
Author Organization [place] Address [facility]0 [place] [address] Care Team Providers Care Wildland Fire Fighter Specialist Name Role Phone Anthony Mazariegos MD Primary Care Provider [phone] Emmanuel Nobles MD Unavailable [phone] Anthony Leyva MD Unavailable [phone] Verona Mclain LOCOMOTIVE INSPECTOR SENIOR BACK END JAVA DEVELOPER Unavailable Anthony Leyva MD Unavailable [phone] Shaila Mota APRN SENIOR BACK END JAVA DEVELOPER Unavailable Unavailable Evaristo Stack SENIOR BACK END JAVA DEVELOPER Unavailable [phone] Anthony Mazariegos MD Unavailable [phone] Shaila Mota APRN SENIOR BACK END JAVA DEVELOPER Unavailable Unavailable Emil Cope MD Primary Care Provider Anthony Mazariegos MD Unavailable [phone] Nallely Saravia MD Unavailable Reason for Visit * Reason Comments Medication Refill Encounter Details Date Type Department Care Team (Late st Contact Info) Description 05/17/2022 [place] [id number] [facility] [address] [place] [phone] Anthony Mazariegos MD 1600 [facility] 200 [place], [place] [id number] Medication Refill Social History Tobacco Use Types [...] Description 11/10/2023 3:20 PM CDT Office Visit [place] [id number] [facility] [address] [place] [address] Anthony Mazariegos MD [address] [facility] 200 [place] [address] documented as of this encounter Visit Diagnoses Diagnosis Acute on chronic diastolic heart failure (H) Acute on chronic diastolic heart failure Stage 3 chronic kidney disease, unspecified whether stage 3a or 3b CKD (H) Essential hypertension Unspecified essential hypertension documented in this encounter Care Teams Wildland Fire Fighter Specialist Relationship Specialty Start Date End Date Anthony Mazariegos MD 1600 [facility] 200 [place] [address] PCP - General Cardiovascular Disease 01/14/22 3 Emil Cope MD [facility] [address] [place] [address] PCP - General Emergency Medicine 09/30/22 Emmanuel Nobles MD [address] [place] [address] [place] [address] Hematology 02/07/22 Anthony Leyva MD [address]09 [place] [address] Gastroenterology 02/07/22 Verona Mclain APRN SENIOR BACK END JAVA DEVELOPER [address] [place] [address] Assigned Cancer Care Provider 04/05/22 07/25/22 Anthony Leyva MD [address] [place] [address] Assigned Gastroenterology Provider 04/12/22 Shaila Mota APRN SENIOR BACK END JAVA DEVELOPER [address] [place] [address] Assigned Heart and Vascular Provider 05/17/22 07/18/22 Evaristo Stack, SENIOR BACK END JAVA DEVELOPER [facility] Julia [address]ez [address] [place] [address] Assigned Cancer Care Provider 07/26/22 06/22/23 Anthony Mazariegos MD 1600 [facility] 200 [place] [address] Assigned Heart and Vascular Provider 07/19/22 09/19/22 Shaila Mota APRN SENIOR BACK END JAVA DEVELOPER Assigned Heart and Vascular Provider 09/20/22 01/16/23 Anthony Mazariegos MD 1600 [facility] [address] [place] [address] Assigned Heart and Vascular Provider 01/17/23 Nallely Saravia MD [address] [place] [address] Assigned Cancer Care Provider 06/23/23 documented as of this encounter
--- OUTSIDE RECORDS SUMMARY | 2023-10-01 13:46 | XMS_ITS | Encounter Summary ---
Author Organization [place] Address [facility] [place] [address] Care Team Providers Care Budget Specialist Name Role Phone Anthony Mazariegos MD Primary Care Provider Emmanuel Nobles MD Unavailable [phone] Anthony Leyva MD Unavailable [phone] Anthony Mazariegos MD Unavailable Verona Mclain CHILDREN'S NURSERY ASSISTANT ER NURSE Unavailable Anthony Leyva MD Unavailable [phone] Shaila Mota APRN ER NURSE Unavailable Unavailable Evaristo Stack ER NURSE Unavailable [phone] Anthony Mazariegos MD Unavailable [phone] Shaila Mota APRN ER NURSE Unavailable Unavailable Emil Cope MD Primary Care Provider Anthony Mazariegos MD Unavailable Nallely Saravia MD Unavailable Reason for Visit * Reason Comments Medication Refill Encounter Details Date Type Department Care Team (Late st Contact Info) Description 03/08/2022 [place] [id number] [facility] [address] [place] [phone] Anthony Mazariegos MD 1600 [facility] 200 [place], [place] [id number] Medication Refill Social History Tobacco Use Types [...] Coronavirus/COVID-19? No / Unsure 03/07/2022 12:03 PM GRIT REMOVAL OPERATOR documented as of this encounter Plan of Treatment Upcoming Encounters Date Type Department Care Team (Late st Contact Info) Description 11/10/2023 3:20 PM CDT Office Visit [place] [id number] [facility] [address] [place] [address] Anthony Mazariegos MD [address] [facility] 200 [place] [address] documented as of this encounter Visit Diagnoses Diagnosis Chronic heart failure with preserved ejection fraction (H) documented in this encounter Care Teams Budget Specialist Relationship Specialty Start Date End Date Anthony Mazariegos MD [address] [facility] 200 [place] [address] PCP - General Cardiovascular Disease 01/14/22 3 Emil Cope MD [facility] [address] [place] [address] PCP - General Emergency Medicine 09/30/22 Emmanuel Nobles MD [address] [place] [address] [place] [id number] Hematology 02/07/22 Anthony Leyva MD [address] [place] [address] Gastroenterology 02/07/22 Anthony Mazariegos MD [address] [address] Assigned Heart and Vascular Provider 03/08/22 05/16/22 Verona Mclain APRN ER NURSE [address]75 [place] [address] Assigned Cancer Care Provider 04/05/22 07/25/22 Anthony Leyva MD [address] [place] [address] Assigned Gastroenterology Provider 04/12/22 Shaila Mota APRN ER NURSE [address] [place] [address] Assigned Heart and Vascular Provider 05/17/22 07/18/22 Evaristo Stcak, ER NURSE [address] [place], [place] [address]jamey Cortez [address] [address] Assigned Cancer Care Provider 07/26/22 06/22/23 Anthony Mazariegos MD [address] [address] Assigned Heart and Vascular Provider 07/19/22 09/19/22 Shaila Mota APRN ER NURSE Assigned Heart and Vascular Provider 09/20/22 01/16/23 Anthony Mazariegos MD [address] [address] Assigned Heart and Vascular Provider 01/17/23 Nallely Saravia MD [address] [place] [address] Assigned Cancer Care Provider 06/23/23 documented as of this encounter
--- OUTSIDE RECORDS SUMMARY | 2023-10-01 13:46 | XMS_ITS | Clinical Summary ---
Author Organization [facility] Address [place], [place] [address] Care Team Providers Care Powerhouse Engineer Name Role Phone Emil Cope MD Primary Care Provider [phone] Fuentes Romero MD Unavailable Nurses, Advanced Heart [...] CDT Oxygen Saturation 96% 03/16/2019 3:04 PM COUPON REDEMPTION CLERK Inhaled Oxygen Concentration - - Weight 118.8 kg (262 lb) 11/29/2021 1:10 PM CDT Height 182.9 cm (6' 0.01) 03/16/2019 3:04 PM CS T Body Mass Index 35.53 03/16/2019 3:04 PM COUPON REDEMPTION CLERK Plan of Treatment Health Maintenance Due Date [...] Additional history exists Influenza for age 65+ 11/01/2023 02/15/2013 Advance Directives * Full Code (Latest Code Status on File) Date Activated Date Inactivated Comments 11/28/2007 8:43 PM 11/29/2007 5:18 PM Care Teams Powerhouse Engineer Relationship Specialty Start Date End Date Emil Cope MD [address] [place] [address] PCP - General Internal Medicine 09/07/18 Fuentes Romero MD [address] [place] [address] Cardiology - CHF Cardiovascular Disease 01/13/19 Nurses, Advanced Heart Failure [address] [address] Advanced Heart Failure/Transplant Card 01/13/19
--- OUTSIDE RECORDS SUMMARY | 2023-10-01 13:46 | XMS_ITS | Encounter Summary ---
Author Organization [place] Address [facility]0 [facility] [place] [address] Care Team Providers Care Internal Grinding Machine Operator Name Role Phone Emmanuel Nobles MD Unavailable [phone] Anthony Leyva MD Unavailable + [phone] Anthony Leyva MD Unavailable + [phone] Emil Cope MD Primary Care Provider Anthony Mazariegos MD Unavailable [phone] Nallely Saravia MD Unavailable Reason for Visit * Reason Comments Medication Refill Encounter Details Date Type Department Care Team (Late st Contact Info) Description 08/24/2023 [place] [id number] [facility] [address] [place] [phone] Shaila Mota, TOYA BOOKKEEPING MACHINE MECHANIC Medication Refill Social History Tobacco Use Types [...] encounter Miscellaneous Notes * Telephone Encounter - Evette Mixon RN - 2023 1:52 PM CDT Rx refill sent per request Evette [employer] ASSOCIATE, CHFN, PCCN-K documented in this encounter Plan of Treatment Upcoming Encounters Date Type Department Care Team (Late st Contact Info) Description 11/10/2023 3:20 PM CDT Office Visit [facility] [address] [facility] [address] [place] [address] Anthony Mazariegos MD 1600 [facility] 200 [place], [place] [address] documented as of this encounter Visit Diagnoses Diagnosis Chronic heart failure with preserved ejection fraction (H) documented in this encounter Care Teams Internal Grinding Machine Operator Relationship Specialty Start Date End Date Emil Cope MD [facility] [address] [place] [address] PCP - General Emergency Medicine 09/30/22 Emmanuel Nobles MD [address] [place] [address] Hematology 02/07/22 Anthony Leyva MD [address] [place] [address] Gastroenterology 02/07/22 Atnhony Leyva MD [address] [place] [address] Assigned Gastroenterology Provider 04/12/22 Anthony Mazariegos MD 1600 [facility] 200 [place] [address] Assigned Heart and Vascular Provider 01/17/23 Nallely Saravia MD [facility]5 [place] [address] Assigned Cancer Care Provider 06/23/23 documented as of this encounter
--- OUTSIDE RECORDS SUMMARY | 2023-10-01 13:46 | XMS_ITS | Encounter Summary ---
Author Organization [place] Address [facility] [place] [address] Care Team Providers Care Lead Customer Service Representative Name Role Phone Mateus Bergman MD Primary Care Provider Unava ilable System, Provider Not In Primary Care Provider Un available Anthony Mazariegos MD Primary Care Provider [phone] Rocio Sellers NP Unavailable [phone] Emmanuel Nboles MD Unavailable [phone] Anthony Leyva MD Unavailable + [phone] Shaila Mota APRN MAGNETIC TESTING TECHNICIAN Unavailable Unavailable Anthony Mazariegos MD Unavailable [phone] Verona Mclain APRN MAGNETIC TESTING TECHNICIAN Unavailable [phone] Anthony Leyva MD Unavailable + [phone] Shaila Mota APRN MAGNETIC TESTING TECHNICIAN Unavailable Unavailable Evaristo Stack MAGNETIC TESTING TECHNICIAN Unavailable [phone] Anthony Mazariegos MD Unavailable [phone] Shaila Mota APRN MAGNETIC TESTING TECHNICIAN Unavailable Unavailable Emil Cope MD Primary Care Provider Anthony Mazariegos MD Unavailable [phone] Nallely Saravia MD Unavailable Reason for Visit * Reason Comments Call Center Generated Orders Encounter Details Date Type Department Care Team (Late st Contact Info) Description 07/20/2015 Orders Only [facility] [address] [address] Arcadio Robles, DO [address] [place] [address] Social History Tobacco Use Types Packs/Day Years [...] Description 11/10/2023 3:20 PM CDT Office Visit [facility] Heart [place] [address] [facility] [address] [place] [address] Anthony Mazariegos MD [address] [facility] 200 [place] [address] documented as of this encounter Visit Diagnoses Not on filedocumented in this encounter Care Teams Lead Customer Service Representative Relationship Specialty Start Date End Date Mateus Bergman MD PCP - General 10/24/10 12/18/21 System, Provider Not In PCP - General Clinic 12/19/21 01/13/22 Anthony Mazariegos MD [address] [facility] 200 [place] [address] PCP - General Cardiovascular Disease 01/14/22 3 Emil Cope MD [facility] [address] [place] [address] PCP - General Emergency Medicine 09/30/22 Rocio Sellers NP [address] [facility] [address] [place] [address] Assigned Heart and Vascular Provider 01/11/22 02/07/22 Emmanuel Nobles MD [address] [place] [address] Hematology 02/07/22 Anthony Leyva MD [address] [place] [address] Gastroenterology 02/07/22 Shaila Mota APRN MAGNETIC TESTING TECHNICIAN Assigned Heart and Vascular Provider 02/08/22 03/07/22 Anthony Mazariegos MD [address] [facility] 200 [place] [address] Assigned Heart and Vascular Provider 03/08/22 05/16/22 Verona Mclain APRN MAGNETIC TESTING TECHNICIAN [address] [place] [address] Assigned Cancer Care Provider 04/05/22 07/25/22 Anthony Leyva MD [address] [place] [address] Assigned Gastroenterology Provider 04/12/22 Shaila Mota APRN MAGNETIC TESTING TECHNICIAN [address] [place] [address] Assigned Heart and Vascular Provider 05/17/22 07/18/22 Evaristo Stack, MAGNETIC TESTING TECHNICIAN [facility]5 [place] [address] [address] Assigned Cancer Care Provider 07/26/22 06/22/23 Anthony Mazariegos MD [address] [facility] 200 [place] [address] Assigned Heart and Vascular Provider 07/19/22 09/19/22 Shaila Mota APRN [facility] Assigned Heart and Vascular Provider 09/20/22 01/16/23 Anthony Mazariegos MD [address] [facility] [address] [place] [address] Assigned Heart and Vascular Provider 01/17/23 Nallely Saravia MD [address] [place], [place] [address] Assigned Cancer Care Provider 06/23/23 documented as of this encounter
[2023-10-01 18:24] LABS: Chloride* 96 mmol/L (96-114); Potassium* 3.7 mmol/L (3.6-5.1); Sodium* 137 mmol/L (135-149)
[2023-10-01 18:26] LABS: Creatinine* 2.4 mg/dL (0.5-1.5); Estimated Glomerular Filt Rate 26 ml/min
[2023-10-01 18:27] LABS: Anion Gap 11 mEq/L (7-15); Blood Urea Nitrogen* 53 mg/dL (7-30); Calcium* 10.1 mg/dL (8.4-10.6); Carbon Dioxide* 30 mmol/L (20-32); Glucose* 105 mg/dL (60-115)
== END 2023-10-01 13:34 | disposition home or self-care (01) ==
LOC: NPINS 13:33
PROVIDERS: PCP Internal Medicine; Visit Provider Internal Medicine Cardiovascular Disease
DX: I50.33 Acute on chronic diastolic (congestive) heart failure (principal)
CPT/HCPCS: 80048

== ENCOUNTER 2024-05-03 13:13 | Outpatient (CLI) | payer MEDICARE, BC, SELFPAY ==
[2024-05-03 14:37] LABS: Basophils Absolute Auto 0.01 K/uL (0.00-0.30); Basophils Percent Auto 0.1 % (0.0-3.0); Eosinophils Absolute Auto 0.15 K/uL (0.00-0.50); Eosinophils Percent Auto 1.8 % (0.0-7.0); Hematocrit 32.8 % (37.0-53.0); Hemoglobin* 10.8 gm/dL (13.5-17.5); Immature Granulocytes Abs Auto 0.02 K/uL (0.00-0.30); Immature Granulocytes Pct Auto 0.2 %; Lymphocytes Percent Auto 12.8 % (20-44); Mean Corpuscular HGB Conc 33 gm/dL (32-36); Mean Corpuscular Hemoglobin 32 pg (26-34); Mean Corpuscular Volume 97 fL (80-100); Monocytes Percent Auto 7.8 % (0.0-11.0); Neutrophils Percent Auto 77.3 % (42.0-72.0); Platelet Count* 136 K/uL (140-440); RDW Coefficient of Variation % 15.3 % (11.5-15.5); Red Blood Count 3.39 m/uL (4.30-5.90); White Blood Count* 8.37 K/uL (4.50-11.00)
[2024-05-03 14:42] LABS: Slide Review Reflex No
[2024-05-03 15:18] LABS: Albumin* 4.1 g/dL (3.3-5.0); Chloride* 87 mmol/L (96-114)
[2024-05-03 15:19] LABS: Potassium* 3.3 mmol/L (3.6-5.1); Sodium* 133 mmol/L (135-149)
[2024-05-03 15:21] LABS: Alanine Aminotransferase* 27 U/L (4-50); Alkaline Phosphatase* 114 U/L (40-150); Anion Gap 15 mEq/L (7-15); Aspartate Amino Transferase* 26 U/L (12-35); Bilirubin Total* 1.3 mg/dL (0.1-1.5); Blood Urea Nitrogen* 91 mg/dL (7-30); Carbon Dioxide* 31 mmol/L (20-32); Creatinine* 2.8 mg/dL (0.5-1.5); Estimated Glomerular Filt Rate 22 ml/min; Glucose* 139 mg/dL (60-115); Total Protein* 7.3 g/dL (6.0-8.3)
[2024-05-03 15:22] LABS: Calcium* 9.9 mg/dL (8.4-10.6)
[2024-05-03 15:54] LABS: Ferritin* 63.8 ng/mL (17.9-464.0)
== END 2024-05-03 13:14 | disposition home or self-care (01) ==
LOC: NPINS 13:18
PROVIDERS: PCP Internal Medicine; Visit Provider Nurse Practitioner
DX: D46.9 Myelodysplastic syndrome, unspecified (principal)
CPT/HCPCS: 80053; 82728; 85025

== ENCOUNTER 2024-05-24 10:58 | Outpatient (CLI) | payer MEDICARE, BC, SELFPAY | END 2024-05-24 10:59 | disposition home or self-care (01) | LOC: NFLDREF 05-25 10:59 | PROVIDERS: PCP Internal Medicine; Referring Provider Internal Medicine; Visit Provider Internal Medicine | DX: I12.9 Hypertensive chronic kidney disease with stage 1 through stage 4 chronic kidney disease, or unspecified chronic kidney disease (principal); N18.4 Chronic kidney disease, stage 4 (severe); I10 Essential (primary) hypertension; N40.0 Benign prostatic hyperplasia without lower urinary tract symptoms; E78.5 Hyperlipidemia, unspecified; Z12.5 Encounter for screening for malignant neoplasm of prostate | CPT/HCPCS: 80053; 80061; G0103 ==

== ENCOUNTER 2024-06-20 11:30 | Outpatient (RCR) | payer MEDICARE, BC, SELFPAY ==
--- NOTE | 2024-06-08 13:51 | URNOTE ---
Request received for authorization for Iron Sucrose ([id number]). Prior authorization is not required as services are based on medical necessity and follow Medicare guidelines.
[2024-06-10 11:40] VITALS: BP 130/70; PULSE 96; RESP 20; TEMP 36.7; O2SAT 94
[2024-06-10] MEDS: SODIUM CHLORIDE 0.9 % (FLUSH) 10 ML SYRINGE IVF (12:00)
--- NOTE | 2024-06-10 12:03 | ONC.NURNOTE ---
Diagnosis: KOFFI in Chronic Kidney Disease
[2024-06-10 13:06] VITALS: BP 127/71; PULSE 78; RESP 18; O2SAT 97
[2024-06-13 13:10] VITALS: BP 120/71; PULSE 82; RESP 20; TEMP 36.6; O2SAT 93
[2024-06-13] MEDS: SODIUM CHLORIDE 0.9 % (FLUSH) 10 ML SYRINGE IVF (13:15)
[2024-06-13 13:40] VITALS: BP 119/69; PULSE 80; RESP 14; TEMP 36.3; O2SAT 95
[2024-06-15 11:19] VITALS: BP 127/85; PULSE 85; RESP 21; TEMP 36.2; O2SAT 96
[2024-06-15] MEDS: SODIUM CHLORIDE 0.9 % (FLUSH) 10 ML SYRINGE IVF (11:35)
[2024-06-15 11:55] VITALS: BP 115/79; PULSE 69; RESP 20; O2SAT 96
[2024-06-17 11:30] VITALS: BP 129/79; PULSE 82; RESP 20; TEMP 36.2; O2SAT 94
[2024-06-17] MEDS: SODIUM CHLORIDE 0.9 % (FLUSH) 10 ML SYRINGE IVF ×2 (11:45→12:03)
[2024-06-20 11:45] VITALS: BP 123/72; PULSE 78; RESP 20; TEMP 36.3; O2SAT 96
[2024-06-20 13:05] VITALS: BP 131/74; PULSE 79; RESP 20; O2SAT 95
== END 2024-10-25 23:59 | disposition home or self-care (01) ==
LOC: CCIC 11:30
PROVIDERS: PCP Internal Medicine; Referring Provider Internal Medicine; Visit Provider Clinical Nurse Specialist
DX: N18.4 Chronic kidney disease, stage 4 (severe) (principal); D63.1 Anemia in chronic kidney disease
CPT/HCPCS: 96365; 96374; J1756; J7050

== ENCOUNTER 2024-06-27 13:33 | Outpatient (CLI) | payer MEDICARE, BC, SELFPAY ==
[2024-06-27 14:01] LABS: Chloride* 93 mmol/L (96-114); Potassium* 3.6 mmol/L (3.6-5.1); Sodium* 137 mmol/L (135-149)
[2024-06-27 14:04] LABS: Anion Gap 15 mEq/L (7-15); Blood Urea Nitrogen* 85 mg/dL (7-30); Calcium* 10.4 mg/dL (8.4-10.6); Carbon Dioxide* 29 mmol/L (20-32); Creatinine* 2.9 mg/dL (0.5-1.5); Estimated Glomerular Filt Rate 21 ml/min; Glucose* 141 mg/dL (60-115)
== END 2024-06-27 13:34 | disposition home or self-care (01) ==
LOC: NPINS 13:35
PROVIDERS: PCP Internal Medicine; Visit Provider Internal Medicine Cardiovascular Disease
DX: I10 Essential (primary) hypertension (principal); R53.83 Other fatigue; I50.33 Acute on chronic diastolic (congestive) heart failure; N18.30 Chronic kidney disease, stage 3 unspecified; D63.1 Anemia in chronic kidney disease; E66.9 Obesity, unspecified
CPT/HCPCS: 80048; 82728; 83540; 83550

== ENCOUNTER 2024-06-30 12:32 | Outpatient (CLI) | payer MEDICARE, BC, SELFPAY | END 2024-06-30 12:33 | disposition home or self-care (01) | LOC: WOUND 12:33 | PROVIDERS: PCP Internal Medicine; Visit Provider Nurse Practitioner Family | DX: I87.312 Chronic venous hypertension (idiopathic) with ulcer of left lower extremity (principal); L97.822 Non-pressure chronic ulcer of other part of left lower leg with fat layer exposed; I13.0 Hypertensive heart and chronic kidney disease with heart failure and stage 1 through stage 4 chronic kidney disease, or unspecified chronic kidney disease; N18.30 Chronic kidney disease, stage 3 unspecified; I50.814 Right heart failure due to left heart failure; D63.1 Anemia in chronic kidney disease | CPT/HCPCS: G0463 ==

== ENCOUNTER 2024-07-07 13:22 | Outpatient (CLI) | payer MEDICARE, BC, SELFPAY | END 2024-07-07 13:23 | disposition home or self-care (01) | LOC: WOUND 13:22 | PROVIDERS: PCP Internal Medicine; Visit Provider Nurse Practitioner Family | DX: I87.312 Chronic venous hypertension (idiopathic) with ulcer of left lower extremity (principal); L97.822 Non-pressure chronic ulcer of other part of left lower leg with fat layer exposed; I12.9 Hypertensive chronic kidney disease with stage 1 through stage 4 chronic kidney disease, or unspecified chronic kidney disease; D63.1 Anemia in chronic kidney disease; N18.9 Chronic kidney disease, unspecified | CPT/HCPCS: 97597 ==

== ENCOUNTER 2024-07-08 12:31 | Outpatient (CLI) | payer MEDICARE, BC, SELFPAY | END 2024-07-08 12:32 | disposition home or self-care (01) | LOC: RAD 12:32 | PROVIDERS: PCP Internal Medicine; Visit Provider Internal Medicine | DX: I50.814 Right heart failure due to left heart failure (principal); I51.7 Cardiomegaly; I34.0 Nonrheumatic mitral (valve) insufficiency; I07.1 Rheumatic tricuspid insufficiency; I31.39 Other pericardial effusion (noninflammatory) | CPT/HCPCS: 93306 ==

== ENCOUNTER 2024-07-15 12:58 | Outpatient (CLI) | payer MEDICARE, BC, SELFPAY | END 2024-07-15 12:59 | disposition home or self-care (01) | PROVIDERS: PCP Internal Medicine; Visit Provider Nurse Practitioner Family | DX: I87.312 Chronic venous hypertension (idiopathic) with ulcer of left lower extremity (principal); L97.822 Non-pressure chronic ulcer of other part of left lower leg with fat layer exposed; I12.9 Hypertensive chronic kidney disease with stage 1 through stage 4 chronic kidney disease, or unspecified chronic kidney disease; D63.1 Anemia in chronic kidney disease; N18.9 Chronic kidney disease, unspecified | CPT/HCPCS: 97597 ==

== ENCOUNTER 2024-07-22 12:57 | Outpatient (CLI) | payer MEDICARE, BC, SELFPAY | END 2024-07-22 12:58 | disposition home or self-care (01) | LOC: WOUND 12:57 | PROVIDERS: PCP Internal Medicine; Visit Provider Family Medicine | DX: I87.312 Chronic venous hypertension (idiopathic) with ulcer of left lower extremity (principal); L97.822 Non-pressure chronic ulcer of other part of left lower leg with fat layer exposed; I12.9 Hypertensive chronic kidney disease with stage 1 through stage 4 chronic kidney disease, or unspecified chronic kidney disease; D63.1 Anemia in chronic kidney disease; N18.9 Chronic kidney disease, unspecified | CPT/HCPCS: 11042 ==

== ENCOUNTER 2024-07-27 14:01 | Outpatient (CLI) | payer MEDICARE, BC, SELFPAY | END 2024-07-27 14:02 | disposition home or self-care (01) | LOC: NFLDREF 14:02 | PROVIDERS: PCP Internal Medicine; Visit Provider Internal Medicine | DX: N18.9 Chronic kidney disease, unspecified (principal); D63.1 Anemia in chronic kidney disease | CPT/HCPCS: 80053 ==

== ENCOUNTER 2024-07-29 12:51 | Outpatient (CLI) | payer MEDICARE, BC, SELFPAY | END 2024-07-29 12:52 | disposition home or self-care (01) | LOC: WOUND 12:51 | PROVIDERS: PCP Internal Medicine; Visit Provider Nurse Practitioner Family | DX: I87.302 Chronic venous hypertension (idiopathic) without complications of left lower extremity (principal); I12.9 Hypertensive chronic kidney disease with stage 1 through stage 4 chronic kidney disease, or unspecified chronic kidney disease; D63.1 Anemia in chronic kidney disease; N18.9 Chronic kidney disease, unspecified | CPT/HCPCS: G0463 ==

== ENCOUNTER 2024-08-29 10:38 | Outpatient (CLI) | payer MEDICARE, BC, SELFPAY ==
--- OUTSIDE RECORDS SUMMARY | 2024-07-17 08:30 | XMS_ITS | Encounter Summary ---
Author Organization [place] Address [address] [facility] [place] [address] Care Team Providers Care Clinical Psychiatrist Name Role Phone Emmanuel Nobles MD Unavailable [phone] Anthony Leyva MD Unavailable [phone] Emil Cope MD Primary Care Provider Anthony Mazariegos MD Unavailable Nallely Saravia MD Unavailable Reason for Referral * Rehab Therapy Physical Therapy (Routine) - Pending Review Specialty Diagnoses / Procedures Referred By Madeleine watters Referred To Contact Diagnoses Edema, unspecified type Oksana Cole MD [address] [place] [address] Phone: tel: fax: Referral ID Status Reason Start Date Expiration Date V isits Requested Visits Authorized [id number] Pending Review 07/20/2024 07/20/2025 1 1 Question Answer Course of Action: Evaluation and Treatment Specialty Services: Edema (PT or OT) Patient Scheduling Instructions: [facility] will call you to coordinate your care as prescribed by your provider. If you don't hear from a customer field representative within 2 business days, please call . Additional Information: lymphedema therapy Comments Please be aware that coverage of these services is subject to the terms and limitations of your health insurance plan. Call member services at your health plan with any benefit or coverage questions. [employer] will call you to coordinate your care as prescribed by your provider. If you don't hear from a customer field representative within 2 business days, please call . * Consultation (Urgent: 3-5 Days) - Pending Review Specialty Diagnoses / Procedures Referred By Contjohn watters Referred To Contact Cardiovascular Disease Diagnoses Chronic heart failure with preserved ejection fraction (H) Oksana Cole MD [address] [place] [address] [address] [place] [place], [place] [address] Phone: tel: fax: Referral ID Status Reason Start Date Expiration Date V isits Requested Visits Authorized [id number] Pending Review 07/20/2024 07/20/2025 1 1 Question Answer Follow-up with: MARK ANTHONY Reason for follow-up: Heart Failure Patient Scheduling Instructions: If CORE patient, please schedule with CORE provider. See FYI section to check if patient follows with CORE. Comments If CORE patient, please schedule with CORE provider. See FYI section to check if patient follows with CORE. * Consultation (Routine: Next available opening) - Pending Review Specialty Diagnoses / Procedures Referred By Madeleine watters Referred To Contact Nephrology Diagnoses Stage 3b chronic kidney disease (H) Oksana Cole MD [address] [place] [address] [address] [place] [place], [place] [address] Phone: tel: fax: Referral ID Status Reason Start Date Expiration Date V isits Requested Visits Authorized [id number] Pending Review 07/20/2024 07/20/2025 1 1 Question Answer Reason for Referral: Chronic Kidney Disease Scheduling Instructions: [employer] will call you to coordinate your care as prescribed by the provider. If you don t hear from a customer field representative within 2 business days, please call [phone]. Comments Please be aware that coverage of these services is subject to the terms and limitations of your health insurance plan. Call member services at your health plan with any benefit or coverage questions. [facility] will call you to coordinate your care as prescribed by the provider. If you don t hear from a customer field representative within 2 business days, please call [phone]. Reason for Visit * Reason Comments Shortness of Breath * Auth/Cert Specialty Diagnoses / Procedures Referred By Contac t Referred To Contact EMERGENCY MEDICINE Diagnoses Acute on chronic congestive heart failure, unspecified heart failure type (H) [facility] Emergency Room [address] [place] [phone] Phone: tel: fax: Referral ID Status Reason Start Date Expiration Date Visits Re quested Visits Authorized [id number] 1 1 Encounter Details Date Type Department Care Team (Late st Contact Info) Description 07/17/2024 8:30 AM CDT - 07/20/2024 1:55 PM CDT Hospital Encounter [address] [phone] Gab Jacob MD [address] [place] [address] [phone] Chantal Magaña MD [address] [place] [address] [phone] Felix Balderas MD [address] [place] [address] [phone] Oksana Cole MD [address] [place] [address] [address] [place] [facility] [place], [place] [phone] Alteration in skin integrity [R23.9] (Primary Dx); Acute on chronic congestive heart failure, unspecified heart failure type (H); Chronic heart failure with preserved ejection fraction (H); Stage 3b chronic kidney disease (H); Rash; Edema, unspecified type; Haemophilus influenzae infection Discharge Disposition: Home or Self Care Social History Tobacco Use Types Packs/Day Years Used Date Smoking Tobacco: Never Smokeless Tobacco: Never Alcohol Use Standard Drinks/Week Comments Yes 0 (1 standard drink = 0.6 oz pur e alcohol) very rare PHQ-2 Answer Date Recorded PHQ-2 Score 0 03/23/2024 Adolescent Education Answer Date Record ed Getting School Help Needed Not on file 12/14 Food Insecurity Answer Date Recorded Within the past 12 months, d id you worry that your food would run out before you got money to buy more? No 07/17/2024 Within the past 12 months, d id the food you bought just not last and you didn t have money to get more? No 07/17/2024 Housing Stability Answer Date Recorded Do you have housing? (Housin g is defined as stable permanent housing and does not include staying outside in a car, in a tent, in an abandoned building, in an overnight fci, or couch-surfing.) Yes 07/17/2024 Are you worried about losing your housing? No 07/17/2024 Financial Resource Strain Answer Date R ecorded Within the past 12 months, h ave you or your family members you live with been unable to get utilities (heat, electricity) when it was really needed? No 07/17/2024 Transportation Needs Answer Date Record ed Within the past 12 months, h as lack of transportation kept you from medical appointments, getting your medicines, non-medical meetings or appointments, work, or from getting things that you need? No 07/17/2024 Interpersonal Safety Answer Date Record ed Do you feel physically and e motionally safe where you currently live? Yes 07/17/2024 Within the past 12 months, h ave you been hit, slapped, kicked or otherwise physically hurt by someone? No 07/17/2024 Within the past 12 months, h ave you been humiliated or emotionally abused in other ways by your partner or ex-partner? 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 Gender Identity Not on file Sexual Orientation Not on file documented as of this encounter Last Filed Vital Signs Vital Sign Reading Time Taken Comments Blood Pressure 115/65 07/20/2024 12:12 PM CDT Pulse 75 07/20/2024 8:00 AM CDT Temperature 36.9 C (98.4 F) 07/20/2024 12:12 PM CDT Respiratory Rate 18 07/20/2024 3:00 AM CDT Oxygen Saturation 95% 07/20/2024 8:00 AM CDT Inhaled Oxygen Concentration - - Weight 114.3 kg (251 lb 15.8 oz) 07/20/2024 4:48 AM CDT Height 177.8 cm (5' 10) 07/17/2024 8:24 AM CDT Body Mass Index 36.16 07/17/2024 8:24 AM CDT documented in this encounter Discharge Summaries * Oksana Cole MD - 07/20/2024 1:08 PM CDT [facility] MEDICINE DISCHARGE SUMMARY Primary Care Physician: Emil Cope Admission Date: 07/17/2024 Discharge Provider: Oksana Cole MD Discharge Date: 07/20/2024 Diet: Active Diet and Nourishment Order Procedures Fluid restriction 1800 ML FLUID Combination Diet Low Saturated Fat Na <2400mg Diet, No Caffeine Diet Diet Code Status: Full Code Activity: DCACTIVITY: Activity as tolerated Condition at Discharge: Stable REASON FOR PRESENTATION(See Admission Note for Details) Short of breath and worsening leg edema PRINCIPAL & ACTIVE DISCHARGE DIAGNOSES Acute on chronic systolic and diastolic CHF Mild troponin elevation secondary to demand ischemia Right heart failure with significant tricuspid regurgitation Moderate pulmonary hypertension Moderate ascending aorta dilatation Chronic atrial fibrillation, on chronic anticoagulation treatment CKD 4 Solitary kidney Primary hyperparathyroidism Hypercalcemia, corrected Bilateral lower extremity edema Haemophilus influenza bronchitis BPH Myelodysplastic syndrome Iron deficiency anemia Thrombocytopenia Hypokalemia Obstructive sleep apnea, compliant with CPAP use Chronic gout PENDING LABS Unresulted Labs Ordered in the Past 30 Days of this Admission Date and Time Order Name Status Description 07/17/2024 11:54 AM Respiratory Aerobic Bacterial Culture with Gram Stain Preliminary PROCEDURES ( this hospitalization only) None RECOMMENDATIONS TO OUTPATIENT PROVIDER FOR F/U VISIT Follow-up Appointments Follow Up Follow-up with cardiology at CHF clinic in 2-week, Can discuss tricuspid valve clip at that time with Dr. Mazariegos Follow-up with associated nephrology ( [phone]) in 1 month Hospital Follow-up with Existing Primary Care Provider (PCP) Schedule Primary Care visit within: 3-5 Days (Urgent) Recommended labs and Imaging (to be ordered by Primary Care Provider): cbc and bmp DISPOSITION Home with outpatient lymphedema therapy SUMMARY OF HOSPITAL COURSE: Mr. Shiva Monique is a 83 year old male history of chronic diastolic CHF, chronic atrial fibrillation, on chronic anticoagulation treatment, CKD 4, DM 2, solitary kidney, chronic gout, obstructive sleep apnea, compliant with CPAP use, moderate obesity, myelodysplastic syndrome, came with worsening short of breath and leg edema. Found to have acute on chronic systolic and diastolic CHF exacerbation. Echocardiogram revealed EF 50 to 55%, mild left ventricular hypertrophy, mildly dilated right ventricle, moderate mitral regurgitation, moderate to severe tricuspid regurgitation, right heart failure. He was diuresed well. Breathing is much improved. Not requiring oxygen. Evaluated by cardiology. Continue oral Bumex 4 mg twice daily with metolazone 2.5 mg twice a week with an extra dose to take as needed for weight gain of 3 pounds in a day or 5 pounds in a week. Continue Jardiance 10 mg daily. Not on an ARB/MRA due to kidney function. CHF education provided. Resume low-salt, cardiac diet. Follow- up at cardiology CHF clinic in 2 weeks. Can discuss tricuspid valve clip at that time with . Continue lymphedema therapy as outpatient. Continue potassium replacement therapy. Has Haemophilus influenzae bronchitis. Started on Omnicef for 5-day. Patient is afebrile. He has CKD 3, cr 2.92 with solitary kidney. Will follow-up with associated nephrology as outpatient. Has primary hyperparathyroidism and mild hypercalcemia at 11-->10.6. PTH elevated. Voiding urine well.. Has multiple left lower leg ulcer due to venous insufficiency. Will continue local wound care. Has myelodysplastic syndrome with anemia and thrombocytopenia. Will follow-up as outpatient closely. Discharge Medications with Med changes: Discharge Medication List as of 07/20/2024 1:44 PM START taking these medications Details miconazole (MICATIN) 2 % external powder Apply topically 2 times daily as needed for other (candidiasis/intertrigo).Disp-43 g, [id number] CONTINUE these medications which have CHANGED Details bumetanide (BUMEX) 2 MG tablet Take 2 tablets (4 mg) by mouth 2 times daily., Disp-120 tablet, R-1,E-Prescribe metolazone (ZAROXOLYN) 2.5 MG tablet Take 1 tablet twice weekly and as needed extra dose to take asneeded for weight gain of 3 pounds in a day or 5 pounds in a week, Disp-30 tablet, R-3, E-Prescribe CONTINUE these medications which have NOT CHANGED Details allopurinol (ZYLOPRIM) 100 MG tablet Take 200 mg by mouth daily, Historical apixaban ANTICOAGULANT (ELIQUIS ANTICOAGULANT) 2.5 MG tablet Take 1 tablet (2.5 mg) by mouth 2 times daily., Disp-60 tablet, R-4, E-Prescribe betamethasone dipropionate (DIPROSONE) 0.05 % external cream Apply topically daily.Historical desoximetasone (TOPICORT) 0.25 % external cream Apply topically 2 times daily as needed.Historical empagliflozin (JARDIANCE) 10 MG TABS tablet TAKE 1 TABLET (10 MG) BY MOUTH DAILY, Disp-90 tablet, R-2, E-Prescribe Glucosamine-Chondroitin (COSAMIN DS PO) Take 1 tablet by mouth 2 times daily. Cosamin DS 500/400 mg, Historical potassium chloride brett ER (KLOR-CON M20) 20 MEQ CR tablet Take 1 tablet (20 mEq) by mouth 2 times daily., Disp-180 tablet, R-0, E-Prescribe tamsulosin (FLOMAX) 0.4 MG capsule Take 0.4 mg by mouth daily, Historical Omnicef for 5-day Rationale for medication changes: Omnicef for Haemophilus influenzae bronchitis Consults Cardiology PT and OT Lymphedema therapy Immunizations given this encounter Most Recent Immunizations Administered Date(s) Administered COVID-19 MONOVALENT 12+ (Pfizer) 07/23/2021 Influenza Vaccine 65+ (Fluzone HD) 01/17/2021 Pneumo Conj 13-V (2010&after) 11/15/2020 TDAP (Adacel,Boostrix) 08/20/2017 Td (Adult), Adsorbed 07/21/1996 Deferred Date(s) Deferred Influenza Vaccine 65+ (Fluzone HD) 12/20/2021 Anticoagulation Information Eliquis 2.5 mg twice a day SIGNIFICANT IMAGING FINDINGS Leg ultrasound No deep venous thrombosis in the bilateral lower extremities. CXR Moderately enlarged cardiac silhouette with central pulmonary vascular congestion, diffuse interstitial edema, and small right and trace left pleural effusions, suggesting CHF exacerbation. Bibasilaropacities are favored to reflect atelectasis. No pneumothorax. Aortic atherosclerotic calcifications. Echocardiogram 1.Left ventricular function is decreased. The ejection fraction is 50-55% (borderline). 2.There is mild concentric left ventricular hypertrophy. 3.Flattened septum is consistent with RV pressure/volume overload. 4.The right ventricle is mildly dilated. Mildly decreased right ventricular systolic function 5.There is mild to moderate (1-2+) mitral regurgitation. ERO is 0.17 cm2 with a volume of 21 mL. 6.There is mod-severe to severe (3-4+) tricuspid regurgitation. 7.Right ventricular systolic pressure is elevated, consistent with moderate pulmonary hypertension. 8.Moderate ascending Aorta dilatation is present 44 mm. 9.IVC diameter >2.1 cm collapsing <50% with sniff suggests a high RA pressure estimated at 15 mmHg or greater. Compared to the prior study dated 02/12/2024, the LV is weaker and the RV enlarged and weaker and the TR now severe SIGNIFICANT LABORATORY FINDINGS WBC 7.9, hemoglobin 9.5, platelet 107 Sodium 136, potassium 3.2, creatinine 2.92 Parathormone 210 Phosphorus 4.9 Calcium 10.6 Vitamin D 29 Discharge Orders Adult Nephrology Bridge Manager Referral Follow-Up with Cardiology MARK ANTHONY Heart Failure Discharge Physical Therapy Bridge Manager Referral Reason for your hospital stay Sob and leg edema Activity Your activity upon discharge: activity as tolerated Follow Up Follow-up with cardiology at CHF clinic in 2-week, Can discuss tricuspid valve clip at that time with Dr. Mazariegos Follow-up with associated nephrology ( [phone]) in 1 month Diet Follow this diet upon discharge: low salt diet Hospital Follow-up with Existing Primary Care Provider (PCP) Examination Physical Exam Temp: [98 ??F (36.7 ??C)-98.4 ??F (36.9 ??C)] 98.4 ??F (36.9 ??C) Pulse: [65-104] 75 Resp: [18] 18 BP: (110-121)/(63-73) 115/65 SpO2: [94 %-97 %] 95 % Wt Readings from Last 1 Encounters: 07/20/24 114.3 kg (251 lb 15.8 oz) GENERAL: Alert, appears comfortable, in no acute distress, appears stated age, obese HEAD: Normocephalic, without obvious abnormality, atraumatic EYES: PERRL, conjunctiva clear, EOM's intact NOSE: Nares normal, mucosa normal, no drainage THROAT: Lips, mucosa, gums normal, mouth moist NECK: Supple, symmetrical, trachea midline BACK: Symmetric, no curvature, ROM normal LUNGS: Decreased bibasilar breath sounds, no rales, rhonchi, or wheezing, symmetric chest rise on inhalation, respirations unlabored CHEST WALL: No tenderness or deformity HEART: Irregular rate and rhythm, S1 and S2 normal, no murmur ABDOMEN: Soft, non-tender, bowel sounds active , no masses, no organomegaly, no rebound or guarding EXTREMITIES: 1+ BLE edema SKIN: No rashes in the visualized areas NEURO: Alert, oriented x 3 PSYCH: Cooperative, behavior is appropriate Please see EMR for more detailed significant labs, imaging, revenue cycle consultant notes etc. Oksana Ballesteros MD, personally saw the patient today and spent greater than 30 minutes discharging this patient. Oksana Cole MD [facility] CC:Emil Cope documented in this encounter Discharge Instructions * Discharge Instructions* Dwain Pascual RN - 07/18/2024 12:11 PM CDT WOC DISCHARGE INSTRUCTIONS: LLE wound(s): Thursday/Thursday/Thursday and PRN if dressing soiled, saturated or falls off Moisten gauze with Vashe and wring out excess, apply to wounds for 3-5 minutes, air dry Cover area with piece of Xeroform and cover with ABD and Kerlix. documented in this encounter Medications at Time of Discharge allopurinol (ZYLOPRIM) 100 MG tablet Take 200 mg by mouth daily betamethasone dipropionate (DIPROSONE) 0.05 % external cream Apply topically daily. 06/29/2024 bumetanide (BUMEX) 2 MG tabletIndications:C hronic heart failure with preserved ejection fraction (H) Take 2 tablets (4 mg) by mouth 2 times daily. 120 tablet 1 07/20/2024 desoximetasone (TOPICORT) 0.25 % external cream Apply topically 2 times daily as needed. 12/30/2021 empagliflozin (JARDIANCE) 10 MG TABS tabletIndications:C hronic heart failure with preserved ejection fraction (H) TAKE 1 TABLET (10 MG) BY MOUTH DAILY 90 tablet 2 02/08/2024 Glucosamine-Chondro itin (COSAMIN DS PO) Take 1 tablet by mouth 2 times daily. Cosamin DS 500/400 mg metolazone (ZAROXOLYN) 2.5 MG tabletIndications:C hronic heart failure with preserved ejection fraction (H) Take 1 tablet twice weekly and as needed extra dose to take as needed for weight gain of 3 pounds in a day or 5 pounds in a week 30 tablet 3 07/21/2024 potassium chloride brett ER (KLOR-CON M20) 20 MEQ CR tabletIndications:H ypokalemia Take 1 tablet (20 mEq) by mouth 2 times daily. 180 tablet 03/25/2024 tamsulosin (FLOMAX) 0.4 MG capsule Take 0.4 mg by mouth daily cefdinir (OMNICEF) 300 MG capsuleIndications: Haemophilus influenzae infection Take 1 capsule (300 mg) by mouth daily for 5 days. 5 capsule 07/20/2024 5 miconazole (MICATIN) 2 % external powderIndications:R jose Apply topically 2 times daily as needed for other (candidiasis/in tertrigo). 43 g 1 07/20/2024 5 apixaban ANTICOAGULANT (ELIQUIS ANTICOAGULANT) 2.5 MG tabletIndications:P ermanent atrial fibrillation (H) Take 1 tablet (2.5 mg) by mouth 2 times daily. 60 tablet 4 03/29/2024 5 documented as of this encounter Progress Notes * Pinky Brown RN - 07/20/2024 1:55 PM CDT [facility] DISCHARGE NOTE Patient discharged to home at 2:00 PM via ambulation. Accompanied by spouse and daughter and staff.Discharge instructions reviewed with patient, spouse, and daughter, opportunity offered to ask questions. Prescriptions sent to patients preferred pharmacy. All belongings sent with patient. Pinky Brown RN * Nimco Hartmann LSW - 07/20/2024 1:34 PM CDT Care Management Discharge Note Discharge Date: 07/20/2024 Discharge Disposition: Home Discharge Services: None Discharge DME: None Discharge Transportation: family or friend will provide Private pay costs discussed: Not applicable Does the patient's insurance plan have a 3 day qualifying hospital stay waiver? No PAS Confirmation Code: N/A Patient/family educated on Medicare website which has current facility and service quality ratings:no Education Provided on the Discharge Plan: No Persons Notified of Discharge Plans: Pt, and daughter Patient/Family in Agreement with the Plan: Handoff Referral Completed: No, handoff not indicated or clinically appropriate Additional Information: [facility] met with Pt, and daughter who was visiting.[facility] offered Home PT and Pt declined. Pt is discharging today, Family will transport. ROSAURA Lund * Evonne Rueda MD - 07/20/2024 12:53 PM CDT Images from the original note were not included. HEART CARE CONSULTATON NOTE Assessment/Recommendations Assessment: 1. Acute on chronic heart failure with mildly reduced ejection fraction responded well to diuresis.Now on oral Bumex with twice a week metolazone. 2. Troponin elevation: Likely related to demand ischemia in the setting of acute heart failure, kidney dysfunction. Recommended Lexiscan nuclear stress testing for further assessment however patient declined at this time 3. Right heart failure with significant tricuspid regurgitation: Will recommend outpatient evaluation for tricuspid valve clip. He would like to further discuss with his primary him director Dr. Mazariegos. 4. Chronic kidney disease stage IV: Stable 5. Chronic atrial fibrillation rate controlled and on anticoagulation with Eliquis Plan: 1. Continue oral Bumex 4 mg twice daily with metolazone 2.5 mg twice a week with an extra dose to take as needed for weight gain of 3 pounds in a day or 5 pounds in a week 2. Low-sodium, cardiac diet, daily weights at home 3. Close follow-up in our heart failure clinic and scheduled to see Dr. Mazariegos in a few weeks. Christinaiscuss tricuspid valve clip at that time with Dr. Mazariegos 4. Continue on Jardiance, Eliquis 5. Not on an ARB/MRA due to kidney function No further cardiac recommendations Clinically Significant Risk Factors # Hypokalemia: Lowest K = 3.1 mmol/L in last 2 days, will replace as needed # Hypochloremia: Lowest Cl = 91 mmol/L in last 2 days, will monitor as appropriate # Hypercalcemia: Highest Ca = 10.6 mg/dL in last 2 days, will monitor as appropriate # Thrombocytopenia: Lowest platelets = 107 in last 2 days, will monitor for bleeding # Hypertension: Noted on problem list # Acute heart failure with preserved ejection fraction: heart failure noted on problem list, last echo with EF >50%, and receiving IV diuretics # Obesity: Estimated body mass index is 36.16 kg/m?? as calculated from the following: Height as of this encounter: 1.778 m ( 10). Weight as of this encounter: 114.3 kg (251 lb 15.8 oz). , PRESENT ON ADMISSION History of Present Illness/Subjective Swelling breathing has significantly improved compared to admission. No complaints of chest pain. Physical Examination Review of Systems VITALS: BP 115/65 (BP Location: Right arm, Cuff Size: Adult Regular) Pulse 75 Temp 98.4 ??F (36.9 ??C) (Oral) Resp 18 Ht 1.778 m (' 10) Wt 114.3 kg (251 lb 15.8 oz) SpO2 95% BMI 36.16kg/m?? BMI: Body mass index is 36.16 kg/m??. Wt Readings from Last 3 Encounters: 07/20/24 114.3 kg (251 lb 15.8 oz) 07/06/24 113.6 kg (250 lb 6.4 oz) 05/10/24 111.3 kg (245 lb 6.4 oz) Intake/Output Summary (Last 24 hours) at 07/20/2024 1253 Last data filed at 07/20/2024 1216 Gross per 24 hour Intake 1360 ml Output 2950 ml Net -1590 ml General Appearance: no distress, normal body habitus ENT/Mouth: membranes moist, no oral lesions or bleeding gums. EYES: no scleral icterus, normal conjunctivae Neck: no carotid bruits or thyromegaly Chest/Lungs: lungs are clear to auscultation Cardiovascular: Regular. Normal first and second heart sounds with no murmurs no edema bilaterally Abdomen: no organomegaly, masses, bruits, or tenderness; bowel sounds are present Extremities: no cyanosis or clubbing Skin: no xanthelasma, warm. 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 Recent Labs Lab Test 07/20/24 1217 07/20/24 1213 07/20/24 0721 07/20/24 0535 NA -- -- -- 136 POTASSIUM 3.2* -- -- 3.1* CHLORIDE -- -- -- 91* CO2 -- -- -- 29 GLC -- 129* < > 103* BUN -- -- -- 85.3* CR -- -- -- 2.92* GFRESTIMATED -- -- -- 21* SHANA -- -- -- 10.6* < > = values in this interval not displayed. Recent Labs Lab Test 07/20/24 0535 07/19/24 0531 07/18/24 0254 CR 2.92* 2.71* 2.81* Recent Labs Lab Test 02/16/24 0910 A1C 6.2* Recent Labs Lab Test 07/20/24 0535 WBC 7.9 HGB 9.5* HCT 28.1* MCV 96 PLT 107* Recent Labs Lab Test 07/20/24 0535 07/19/24 0531 07/18/24 0254 HGB 9.5* 9.7* 9.3* No results for input(s): TROPONINI in the last 79041 hours. Recent Labs Lab Test 07/17/24 0851 07/06/24 1548 03/23/24 1623 NTBNP 8,393* 10,905 6,413* Recent Labs Lab Test 07/17/24 1040 TSH 2.72 Recent Labs Lab Test 12/12/21 1130 INR 1.67* Medical History Surgical History Family History Social [...] PLACEMENT; Surgeon: Jose Alberto Diallo MD; Location: [facility] OR ESOPHAGOSCOPY, GASTROSCOPY, DUODENOSCOPY (EGD), COMBINED N/A 12/13/2021 Procedure: ESOPHAGOGASTRODUODENOSCOPY (EGD) WITH BIOPSIES; Surgeon: Jose Alberto Diallo MD; Location: [facility] Main OR HERNIA REPAIR left nephrectomy[ [...] Currently Other Topics Concern Parent/sibling w/ CABG, [place] or angioplasty before 65F 55M? Not Asked Social History Narrative Not on file Social Drivers of Health Financial Resource Strain: Low Risk (07/17/2024) Financial Resource Strain Within the past 12 months, have you or your family members you live with been unable to get utilities (heat, electricity) when it was really needed?: No Food Insecurity: Low Risk (07/17/2024) Food Insecurity Within the past 12 months, did you worry that your food would run out before you got money to buy more?: No Within the past 12 months, did the food you bought just not last and you didn???t have money to getmore?: No Transportation Needs: Low Risk (07/17/2024) Transportation Needs Within the past 12 months, has lack of transportation kept you from medical appointments, getting your medicines, non-medical meetings or appointments, work, or from getting things that you need?: No Physical Activity: Not on file Stress: Not on file Social Connections: Unknown (02/27/2021) Received from [facility] Social Connections Frequency of Communication with Friends and Family: Not on file Interpersonal Safety: Low Risk (07/17/2024) Interpersonal Safety Do you feel physically and emotionally safe where you currently live?: Yes Within the past 12 months, have you been hit, slapped, kicked or otherwise physically hurt by someone?: No Within the past 12 months, have you been humiliated or emotionally abused in other ways by your partner or ex-partner?: No Housing Stability: Low Risk (07/17/2024) Housing Stability Do you have housing? : Yes Are you worried about losing your housing?: No Medications Allergies Current Outpatient Medications Medication Sig Dispense Refill bumetanide (BUMEX) 2 MG tablet Take 2 tablets (4 mg) by mouth 2 times daily. 120 tablet 1 [START ON 07/21/2024] metolazone (ZAROXOLYN) 2.5 MG tablet Take 1 tablet twice weekly and as needed extra dose to take as needed for weight gain of 3 pounds in a day or 5 pounds in a week 30 tablet 3 miconazole (MICATIN) 2 % external powder Apply topically 2 times daily as needed for other (candidiasis/intertrigo). 43 g 1 Allergies Allergen Reactions Furosemide Rash Rash primarily on wrists, itchy. Amlodipine Besylate Unknown Folic Acid Diarrhea Claims to folic acid intolerant, causes diarrhea. Evonne Rueda MD * Piedad Oconnell OTR - 07/19/2024 2:24 PM CDT Occupational Therapy Discharge Summary Reason for therapy discharge: All goals and outcomes met, no further needs identified. Progress towards therapy goal(s). See goals on Care Plan in [facility] electronic health record for goal details. Goals met Therapy recommendation(s): No further therapy is recommended. Pt is working with PT on his mobility skills. * Ashleigh Plaza, PT - 07/19/2024 11:43 AM CDT 07/19/24 0910 Appointment Info Signing Clinician's Name / Credentials (PT) Ashleigh Plaza, PT, DPT Quick Adds Quick Adds Edema Eval Living Environment People in Home spouse Current Living Arrangements house Home Accessibility no concerns Self-Care Equipment Currently Used at Home walker, rolling General Information Onset of Illness/Injury or Date of Surgery 07/17/24 Referring Physician Felix Balderas MD Patient/Family Therapy Goals Statement (PT) to get better Pertinent History of Current Problem (include personal factors and/or comorbidities that impact thePOC) 83 year old male with PMH signficant for congestive heart failure with preserved ejection fraction, chronic atrial fibrillation, chronic kidney disease, type 2 diabetes, gout, solitary kidney, OS A on CPAP, myelodysplastic syndrome. Presented with dyspnea and leg swelling since April 2024 on 07/17/2024 after being urged by daughter. In the ED, - vitals were stable not on oxygen. His creatinineis 2.82, slightly down from previous 110 days ago, he has elevated BNP and troponin. Hemoglobin 9.9and platelet is 114. Chest x-ray showed bilateral small pleural effusion and atelectasis. ED started Bumex 3 mg IV. Patient is admitted for supervised IV diuretics for heart failure exacerbation. Existing Precautions/Restrictions no known precautions/restrictions Weight-Bearing Status - LLE full weight-bearing Weight-Bearing Status - RLE full weight-bearing Integumentary/Edema Affected Body Part(s) Left LE;Right LE General Comments/Previous Edema Treatment/Edema Equipment Wound care wrap on L lower leg Edema Examination/Assessment Skin Condition Pitting;Dryness;Intact Ulcerations No Pitting Assessment 1+ bilaterally Bed Mobility Bed Mobility supine-sit Supine-Sit [place] (Bed Mobility) verbal cues;minimum assist (75% patient effort) Comment, (Bed Mobility) Min assist x 1 with supine to sit transfer. Verbal cues for safety. Transfers Transfers sit-stand transfer Comment, (Transfers) Min assist x 1 with 4WW for sit<>stand transfers. Verbal cues for safetyand safe hand placement. Sit-Stand Transfer Sit-Stand [place] (Transfers) verbal cues;minimum assist (75% patient effort);1 person assist Assistive Device (Sit-Stand Transfers) walker, 4-wheeled Comment, (Sit-Stand Transfer) MIn assist x 1 with 4WW for sit<>stand transfers. Verbal cues for safety and safe hand placement. Gait/Stairs (Locomotion) [place] Level (Gait) verbal cues;contact guard;1 person assist Assistive Device (Gait) walker, 4-wheeled Distance in Feet (Gait) 10' Pattern (Gait) step-to Deviations/Abnormal Patterns (Gait) base of support, wide;fritz decreased;gait speed decreased Comment, (Gait/Stairs) Pt ambulates with CGA and 4WW. Verbal cues for safety and posture. Clinical Impression Criteria for Skilled Therapeutic Intervention Yes, treatment indicated PT Diagnosis (PT) impaired functional mobility Edema: Patient Presentation Edema Influenced by the following impairments weakness, pain Functional limitations due to impairments transfers, ambulation Clinical Presentation (PT Evaluation Complexity) stable Clinical Presentation Rationale pt presents as medically diagnosed Clinical Decision Making (Complexity) moderate complexity Planned Therapy Interventions (PT) balance training;bed mobility training;gait training;home exercise program;patient/family education;ROM (range of motion);strengthening;stretching;transfer training Edema: Planned Interventions Gradient compression bandaging;Fit for compression garment;Edema exercises;Precautions to prevent infection/exacerbation;Education Risk & Benefits of therapy have been explained care plan/treatment goals reviewed;patient PT Total Evaluation Time PT Eval, Moderate Complexity Minutes (95096) 10 Physical Therapy Goals PT Frequency Daily PT Predicted Duration/Target Date for Goal Attainment 07/25/24 PT Goals Edema;Transfers;Gait PT: Transfers Modified independent;Sit to/from stand;Assistive device (4WW) PT: Gait Modified independent;Assistive device;Rolling walker;100 feet (4WW) PT: Edema education to increase ability to manage edema after discharge from the hospital Patient;Verbalize;Big [place];signs/symptoms of intolerance PT: Management of edema bandages Patient;Verbalize;Min assist;quick wrap Interventions Interventions Quick Adds Gait Training;Therapeutic Activity;Self-Care/Home Mgmt Therapeutic Activity Therapeutic Activities: dynamic activities to improve functional performance Minutes (65021) 25 Treatment Detail/Skilled Intervention Min assist x 1 with supine to sit transfers. Verbal cues for safety. Assist with sitting up at edge of bed. CGA with 4WW for sit<>stand transfers. Verbal cues for safety and safe hand placement. Pt able to safely lock brakes before/after completing sit<>stand transfers. SBA with pericares. Assist with donning/doffing brief. Pt has fair standing balance while brushing teeth and washing face at sink. Pt sitting up in chair at end of session with call light within reach and RN notified. Self-Care/Home Management Self-Care/Home Mgmt/ADL, Compensatory, Meal Prep Minutes (54208) 10 Treatment Detail/Skilled Intervention Pt sitting up in chair. Bilateral LE washed and lotion applied. Size G tubigrip applied to bilateral lower legs and feet. Education on removal and safety. Gait Training Gait Training Minutes (07962) 15 Treatment Detail/Skilled Intervention Pt ambulates with CGA and 4WW. Verbal cues for safety and posture. Pt requires seated rest break due to fatigue and lightheadedness. Pt reports lightheadedness in normal when ambulating. Cues for safety. Pt able to safely complete sit<>stand transfer [id number] with SBA for safety. Distance in Feet 15', 15', 75', 75' [place] Level (Gait Training) contact guard Physical Assistance Level (Gait Training) verbal cues;1 person assist Weight Bearing (Gait Training) weight-bearing as tolerated Assistive Device (Gait Training) rolling walker Pattern Analysis (Gait Training) swing-to gait Gait Analysis Deviations decreased fritz;decreased step length;increased stride width Impairments (Gait Analysis/Training) balance impaired;strength decreased PT Discharge Planning PT Plan progress transfers and ambulation, assess tubigrip PT Discharge Recommendation (DC Rec) (S) home with assist (outpatient lymphedema therapy) PT Rationale for DC Rec Pt reports good home support and good home setup. Pt would benefit from continued lymphedema therapy to maintain BLE swelling PT Brief overview of current status CGA with 4WW for sit<>stand transfers and 180 feet PT Total Distance Amb During Session (feet) 180 Physical Therapy Time and Intention Timed Code Treatment Minutes 50 Total Session Time (sum of timed and untimed services) 60 Ashleigh Plaza, PT, DPT * Evonne Rueda MD - 07/19/2024 11:29 AM CDT Images from the original note were not included. 1. HEART CARE CONSULTATON NOTE Assessment/Recommendations Assessment: 1. Acute on chronic heart failure with mildly reduced ejection fraction responding well to diuresis. Will make the switch to oral 2. Troponin elevation: Likely related to demand ischemia in the setting of acute heart failure, kidney dysfunction. Recommended Lexiscan nuclear stress testing for further assessment however patient declined at this time 3. Right heart failure with significant tricuspid regurgitation: Will recommend outpatient evaluation for tricuspid valve clip. He would like to further discuss with his primary him director Dr. Mazariegos. 4. Chronic kidney disease stage IV: Stable 5. Chronic atrial fibrillation rate controlled and on anticoagulation with Eliquis Plan: 1. Will check switch to oral Bumex 4 mg twice daily with metolazone 2.5 mg twice a week with an extra dose to take as needed for weight gain of 3 pounds in a day or 5 pounds in a week 2. Low-sodium, cardiac diet, daily weights at home 3. Close follow-up in our heart failure clinic and scheduled to see Dr. Mazariegos in a few weeks. Katty tricuspid valve clip at that time with Dr. Mazariegos 4. Continue on Jardiance, Eliquis 5. Not on an ARB/MRA due to kidney function Clinically Significant Risk Factors # Hypokalemia: Lowest K = 2.9 mmol/L in last 2 days, will replace as needed # Hypochloremia: Lowest Cl = 93 mmol/L in last 2 days, will monitor as appropriate # Hypercalcemia: Highest Ca = 10.6 mg/dL in last 2 days, will monitor as appropriate # Thrombocytopenia: Lowest platelets = 109 in last 2 days, will monitor for bleeding # Hypertension: Noted on problem list # Acute heart failure with preserved ejection fraction: heart failure noted on problem list, last echo with EF >50%, and receiving IV diuretics # Obesity: Estimated body mass index is 36.03 kg/m?? as calculated from the following: Height as of this encounter: 1.778 m (5' 10). Weight as of this encounter: 113.9 kg (251 lb 1.7 oz). , PRESENT ON ADMISSION History of Present Illness/Subjective Breathing has improved as well as lower extremity edema. No significant findings on telemetry Physical Examination Review of Systems VITALS: BP 114/59 (BP Location: Right arm) Pulse 69 Temp 97.9 ??F (36.6 ??C) (Oral) Resp 18 Ht 1.778 m (5' 10) Wt 113.9 kg (251 lb 1.7 oz) SpO2 97% BMI 36.03 kg/m?? BMI: Body mass index is 36.03 kg/m??. Wt Readings from Last 3 Encounters: 07/18/24 113.9 kg (251 lb 1.7 oz) 07/06/24 113.6 kg (250 lb 6.4 oz) 05/10/24 111.3 kg (245 lb 6.4 oz) Intake/Output Summary (Last 24 hours) at 07/19/2024 1134 Last data filed at 07/19/2024 0953 Gross per 24 hour Intake 1100 ml Output 3700 ml Net -2600 ml General Appearance: no distress, normal body habitus ENT/Mouth: membranes moist, no oral lesions or bleeding gums. EYES: no scleral icterus, normal conjunctivae Neck: no carotid bruits or thyromegaly Chest/Lungs: lungs are clear to auscultation Cardiovascular: irregular. Normal first and second heart sounds with no murmur + edema bilaterally Extremities: no cyanosis or clubbing Skin: no xanthelasma, warm. Neurologic: normal switch engineer bilateral, no tremors Psychiatric: alert and oriented x3, calm Review Of Systems Skin: negative Eyes: negative Ears/Nose/Throat: negative Respiratory: No shortness of breath, dyspnea on exertion, cough, or hemoptysis Cardiovascular: negative Gastrointestinal: negative Genitourinary: negative Musculoskeletal: negative Neurologic: negative Psychiatric: negative Hematologic/Lymphatic/Immunologic: negative Endocrine: negative Lab Results Chemistry/lipid CBC Cardiac Enzymes/BNP/TSH/INR Recent Labs Lab Test 05/24/24 1058 TRIG 101 No results for input(s): LDL in the last 06319 hours. Recent Labs Lab Test 07/19/24 0718 07/19/24 0531 NA -- 137 POTASSIUM -- 3.3* CHLORIDE -- 93* CO2 -- 29 GLC 104* 102* BUN -- 82.6* CR -- 2.71* GFRESTIMATED -- 23* SHANA -- 10.6* Recent Labs Lab Test 07/19/24 0531 07/18/24 0254 07/17/24 0851 CR 2.71* 2.81* 2.82* Recent Labs Lab Test 02/16/24 0910 A1C 6.2* Recent Labs Lab Test 07/19/24 0531 WBC 7.5 HGB 9.7* HCT 29.6* MCV 99 PLT 113* Recent Labs Lab Test 07/19/24 0531 07/18/24 0254 07/17/24 0851 HGB 9.7* 9.3* 9.9* No results for input(s): TROPONINI in the last 92594 hours. Recent Labs Lab Test 07/17/24 0851 07/06/24 1548 03/23/24 1623 NTBNP 8,393* 10,905 6,413* Recent Labs Lab Test 07/17/24 1040 TSH 2.72 Recent Labs Lab Test 12/12/21 1130 INR 1.67* Medical History Surgical History Family History Social [...] PLACEMENT; Surgeon: Jose Alberto Diallo MD; Location: [facility] Main OR ESOPHAGOSCOPY, GASTROSCOPY, DUODENOSCOPY (EGD), COMBINED N/A 12/13/2021 Procedure: ESOPHAGOGASTRODUODENOSCOPY (EGD) WITH BIOPSIES; Surgeon: Jose Alberto Diallo MD; Location: [facility] Main OR HERNIA REPAIR left nephrectomy[ [...] Currently Other Topics Concern Parent/sibling w/ CABG, [place] or angioplasty before 65F 55M? Not Asked Social History Narrative Not on file Social Drivers of Health Financial Resource Strain: Low Risk (07/17/2024) Financial Resource Strain Within the past 12 months, have you or your family members you live with been unable to get utilities (heat, electricity) when it was really needed?: No Food Insecurity: Low Risk (07/17/2024) Food Insecurity Within the past 12 months, did you worry that your food would run out before you got money to buy more?: No Within the past 12 months, did the food you bought just not last and you didn???t have money to getmore?: No Transportation Needs: Low Risk (07/17/2024) Transportation Needs Within the past 12 months, has lack of transportation kept you from medical appointments, getting your medicines, non-medical meetings or appointments, work, or from getting things that you need?: No Physical Activity: Not on file Stress: Not on file Social Connections: Unknown (02/27/2021) Received from [facility] [employer] [facility] Social Connections Frequency of Communication with Friends and Family: Not on file Interpersonal Safety: Low Risk (07/17/2024) Interpersonal Safety Do you feel physically and emotionally safe where you currently live?: Yes Within the past 12 months, have you been hit, slapped, kicked or otherwise physically hurt by someone?: No Within the past 12 months, have you been humiliated or emotionally abused in other ways by your partner or ex-partner?: No Housing Stability: Low Risk (07/17/2024) Housing Stability Do you have housing? : Yes Are you worried about losing your housing?: No Medications Allergies No current outpatient medications on file. Allergies Allergen Reactions Furosemide Rash Rash primarily on wrists, itchy. Amlodipine Besylate Unknown Folic Acid Diarrhea Claims to folic acid intolerant, causes diarrhea. Evonne Rueda MD * Felix Balderas MD - 07/19/2024 10:59 AM CDT [facility] MEDICINE PROGRESS NOTE Securely message me with [employer] (more info) Code Status: Full Code Identification/Summary: Shiva Monique is a 83 year old male with H signficant for congestive heart failure with preserved ejection fraction, chronic atrial fibrillation, chronic kidney disease, type 2 diabetes, gout, solitary kidney, VIANNEY on CPAP, myelodysplastic syndrome. Presented with dyspnea and leg swelling since April 2024 on 07/17/2024 after being urged by daughter. In the ED, - vitals were stable not on oxygen. His creatinine is 2.82, slightly down from previous 110 days ago, he has elevated BNP and troponin. Hemoglobin 9.9 and platelet is 114. Chest x-ray showed bilateral small pleural effusion and atelectasis. ED started Bumex 3 mg IV. Patient is admitted for supervised IV diuretics for heart failure exacerbation. Changes today: -Continue diuresis per cardiology, still with significant pitting edema, but stable on RA -Replace potassium per protocol -Renal function improving with diuresis, suspect cardio-renal with solitary kidney -Continue all other current management -Patient would benefit from a clear plan on his discharge instructions on what/when he should call his him director and see them for, and what he should go to his primary care doctor for. -Looks like primary hyperparathyroidism for some time, no endocrine here, asymptomatic, would consider referral for outpatient. Assessment and Plan: Acute on chronic heart failure with preserved ejection fraction He has been on Bumex 4 mg twice daily since May. He has not noticed a change since the dose was increased from 3 mg twice daily. He is also on metolazone 2.5 mg on Thursday and , plus Jardiance 10 mg. -Start Bumex 4 mg IV every 8 hours -Start metolazone 5 mg once -Continue Jardiance, consider going up to 25mg -Check TSH, electrolytes, echocardiogram -Telemetry, strict I's and O's, daily weights - Ordered electrolyte replacement protocol -Cardiac diet, fluid restriction 1.8 L a day -Cardiology consult Mod-severe to severe (3-4+) tricuspid regurgitation Moderate pulmonary hypertension Moderate ascending aorta dilatation 44mm (stable) - diuresing as above - cardiology on board Troponin elevation He was in 160s to 170s in the past, 217 on admission> 208 Likely due to demand ischemia and CKD -Order echocardiogram - Telemetry CKD Solitary kidney -Strict I's and O's -Daily BMP -Get urinalysis - FeUrea suggests prerenal, could be cardiorenal syndrome Primary hyperparathyroidism Hypercalcemia Calcium minimally elevated, PTH elevated, vitamin D wnl, has had elevated calcium for at least a year highest I can see is 11. should follow with up with endocrine, may have an indication for intervention with his renal function and solitary kidney, would need to discuss risks vs. Benefits -Consider endocrine referral on discharge. 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 Recently had IV iron infusion for stamina/dizziness, which helped. Reported possible melena. Monitor daily Start pantoprazole 40 mg p.o. Had upper endoscopy and colonoscopy in 2021, which revealed erosions in the duodenum Hypokalemia Protocol ordered Chronic A-fib Self rate controlled Continue Eliquis 2.5 mg twice daily (age greater than 80, creatinine greater than 2) VIANNEY Continue CPAP Anticoagulation Orders (Includes Only Anticoagulants) apixaban ANTICOAGULANT, 2.5 mg, Oral, BID Therapy: PT, OT Willis:Not present Lines: None Current Diet Orders Placed This Encounter Combination Diet Low Saturated Fat Na <2400mg Diet, No Caffeine Diet Clinically Significant Risk Factors # Hypokalemia: Lowest K = 2.9 mmol/L in last 2 days, will replace as needed # Hypochloremia: Lowest Cl = 93 mmol/L in last 2 days, will monitor as appropriate # Hypercalcemia: Highest Ca = 10.6 mg/dL in last 2 days, will monitor as appropriate # Thrombocytopenia: Lowest platelets = 109 in last 2 days, will monitor for bleeding # Hypertension: Noted on problem list # Acute heart failure with preserved ejection fraction: heart failure noted on problem list, last echo with EF >50%, and receiving IV diuretics # Obesity: Estimated body mass index is 36.03 kg/m?? as calculated from the following: Height as of this encounter: 1.778 m (5' 10). Weight as of this encounter: 113.9 kg (251 lb 1.7 oz)., PRESENT ON ADMISSION Interval History/Subjective: Feeling fine today, had long discussion with patient about his volume status and when to listen to his family members and what to check for regarding his peripheral edema. Physical Exam/Objective: Temp: [97.4 ??F (36.3 ??C)-98.6 ??F (37 ??C)] 97.9 ??F (36.6 ??C) Pulse: [69-82] 69 Resp: [18] 18 BP: (109-125)/(59-75) 114/59 SpO2: [74 %-99 %] 97 % Wt Readings from Last 4 Encounters: 07/18/24 113.9 kg (251 lb 1.7 oz) 07/06/24 113.6 kg (250 lb 6.4 oz) 05/10/24 111.3 kg (245 lb 6.4 oz) 05/05/24 111.2 kg (245 lb 3.2 oz) Body mass index is 36.03 kg/m??. General Appearance: Alert and wake, not in distress Respiratory: low air movement, fine crackles at lung base Cardiovascular: irregular GI: soft, non-tender, normal bowel sound Neurology: oriented x 3 Psych: cooperative and calm, normal affect Medications: Personally Reviewed. Medications Current Facility-Administered Medications Medication Dose Route Frequency Provider Last Rate Last Admin Current Facility-Administered Medications Medication Dose Route Frequency Provider Last Rate Last Admin allopurinol (ZYLOPRIM) tablet 200 mg 200 mg Oral Daily Chantal Magaña MD 200 mg at 07/19/24 08 apixaban ANTICOAGULANT (ELIQUIS) tablet 2.5 mg 2.5 mg Oral BID Chantal Magaña MD 2.5 mg at 07/19/24 08 bumetanide (BUMEX) injection 4 mg 4 mg Intravenous Q8H Chantal Magaña MD 4 mg at 07/19/24 0446 docusate sodium (COLACE) capsule 100 mg 100 mg Oral BID Chantal Magaña MD empagliflozin (JARDIANCE) tablet 10 mg 10 mg Oral Daily Chantal Magaña MD 10 mg at 07/19/24 08 insulin aspart (NovoLOG) injection (RAPID ACTING) 1-7 Units Subcutaneous TID AC Chantal Magaña MD insulin aspart (NovoLOG) injection (RAPID ACTING) 1-5 Units Subcutaneous At Bedtime Chantal Magaña MD [Held by provider] metolazone (ZAROXOLYN) tablet 2.5 mg 2.5 mg Oral Once per day on ThursdayChantal Magaña MD metolazone (ZAROXOLYN) tablet 5 mg 5 mg Oral Daily Chantal Magaña MD 5 mg at 07/19/24 08 pantoprazole (PROTONIX) EC tablet 40 mg 40 mg Oral QAM AC Chantal Magaña MD 40 mg at 07/19/24 08 polyethylene glycol (MIRALAX) Packet 17 g 17 g Oral BID Chantal Magaña MD sodium chloride (PF) 0.9% PF flush 3 mL 3 mL Intracatheter Q8H Chantal Magaña MD 3 mL at 07/19/24 0459 tamsulosin (FLOMAX) capsule 0.8 mg 0.8 mg Oral Daily Chantal Magaña MD 0.8 mg at 07/19/24 0803 Data reviewed today: I personally reviewed all new medications, labs, imaging/diagnostics reports over the past 24 hours. Pertinent findings include: Imaging: No results found for this or any previous visit (from the past 24 hours). Labs: Echocardiogram Complete Final Result US Lower Extremity Venous Duplex Bilateral Final Result IMPRESSION: 1. No deep venous thrombosis in the bilateral lower extremities. Chest XR, PA & LAT Final Result IMPRESSION: Moderately enlarged cardiac silhouette with central pulmonary vascular congestion, diffuse interstitial edema, and small right and trace left pleural effusions, suggesting CHF exacerbation. Bibasilaropacities are favored to reflect atelectasis. No pneumothorax. Aortic atherosclerotic calcifications. NM Lexiscan stress test (Results Pending) Recent Results (from the past 24 hours) Glucose by meter Collection Time: 07/18/24 11:22 AM Result Value Ref Range GLUCOSE BY METER POCT 132 (H) 70 - 99 mg/dL Respiratory Aerobic Bacterial Culture with Gram Stain Collection Time: 07/18/24 11:55 AM Specimen: Expectorate; Sputum Result Value Ref Range Gram Stain Result <10 Squamous epithelial cells/low power field Gram Stain Result >25 PMNs/low power field Gram Stain Result 3+ Mixed tana Glucose by meter Collection Time: 07/18/24 4:58 PM Result Value Ref Range GLUCOSE BY METER POCT 108 (H) 70 - 99 mg/dL Potassium Collection Time: 07/18/24 6:04 PM Result Value Ref Range Potassium 3.6 3.4 - 5.3 mmol/L Glucose by meter Collection Time: 07/18/24 9:14 PM Result Value Ref Range GLUCOSE BY METER POCT 114 (H) 70 - 99 mg/dL Glucose by meter Collection Time: 07/19/24 2:10 AM Result Value Ref Range GLUCOSE BY METER POCT 112 (H) 70 - 99 mg/dL Basic metabolic panel Collection Time: 07/19/24 5:31 AM Result Value Ref Range Sodium 137 135 - 145 mmol/L Potassium 3.3 (L) 3.4 - 5.3 mmol/L Chloride 93 (L) 98 - 107 mmol/L Carbon Dioxide (CO2) 29 22 - 29 mmol/L Anion Gap 15 7 - 15 mmol/L Urea Nitrogen 82.6 (H) 8.0 - 23.0 mg/dL Creatinine 2.71 (H) 0.67 - 1.17 mg/dL GFR Estimate 23 (L) >60 mL/min/1.73m2 Calcium 10.6 (H) 8.8 - 10.4 mg/dL Glucose 102 (H) 70 - 99 mg/dL CBC with platelets Collection Time: 07/19/24 5:31 AM Result Value Ref Range WBC Count 7.5 4.0 - 11.0 10e3/uL RBC Count 3.00 (L) 4.40 - 5.90 10e6/uL Hemoglobin 9.7 (L) 13.3 - 17.7 g/dL Hematocrit 29.6 (L) 40.0 - 53.0 % MCV 99 78 - 100 fL MCH 32.3 26.5 - 33.0 pg MCHC 32.8 31.5 - 36.5 g/dL RDW 16.4 (H) 10.0 - 15.0 % Platelet Count 113 (L) 150 - 450 10e3/uL Parathyroid Hormone Intact Collection Time: 07/19/24 5:31 AM Result Value Ref Range Parathyroid Hormone Intact 210 (H) 15 - 65 pg/mL Phosphorus Collection Time: 07/19/24 5:31 AM Result Value Ref Range Phosphorus 4.9 (H) 2.5 - 4.5 mg/dL Magnesium Collection Time: 07/19/24 5:31 AM Result Value Ref Range Magnesium 2.4 (H) 1.7 - 2.3 mg/dL Vitamin D Deficiency Collection Time: 07/19/24 5:31 AM Result Value Ref Range Vitamin D, Total (25-Hydroxy) 29 20 - 50 ng/mL Glucose by meter Collection Time: 07/19/24 7:18 AM Result Value Ref Range GLUCOSE BY METER POCT 104 (H) 70 - 99 mg/dL Pending Labs: Unresulted Labs Ordered in the Past 30 Days of this Admission Date and Time Order Name Status Description 07/17/2024 11:54 AM Respiratory Aerobic Bacterial Culture with Gram Stain Preliminary Felix Balderas MD Hospitalist Medical Decision Making 60 MINUTES SPENT BY ME on the date of service doing chart review, history, exam, documentation & further activities per the note. * Chantal Magaña MD - 07/18/2024 1:28 PM CDT [facility] MEDICINE PROGRESS NOTE Securely message me with Dez (more info) Code Status: Full Code Identification/Summary: Shiva Monique is a 83 year old male with PMH signficant for congestive heart failure with preserved ejection fraction, chronic atrial fibrillation, chronic kidney disease, type 2 diabetes, gout, solitary kidney, VIANNEY on CPAP, myelodysplastic syndrome. Presented with dyspnea and leg swelling since April 2024 on 07/17/2024 after being urged by daughter. In the ED, - vitals were stable not on oxygen. His creatinine is 2.82, slightly down from previous 110 days ago, he has elevated BNP and troponin. Hemoglobin 9.9 and platelet is 114. Chest x- ray showed bilateral small pleural effusion and atelectasis. ED started Bumex 3 mg IV. Patient is admitted for supervised IV diuretics for heart failure exace rbation. Assessment and Plan: Acute on chronic heart failure with preserved ejection fraction He has been on Bumex 4 mg twice daily since May. He has not noticed a change since the dose was increased from 3 mg twice daily. He is also on metolazone 2.5 mg on Thursday and , plus Jardiance 10 mg. -Start Bumex 4 mg IV every 8 hours -Start metolazone 5 mg once -Continue Jardiance, consider going up to 25mg -Check TSH, electrolytes, echocardiogram -Telemetry, strict I's and O's, daily weights - Ordered electrolyte replacement protocol -Cardiac diet, fluid restriction 1.8 L a day -Cardiology consult Mod-severe to severe (3-4+) tricuspid regurgitation Moderate pulmonary hypertension Moderate ascending aorta dilatation 44mm (stable) - diuresing as above - cardiology on board Troponin elevation He was in 160s to 170s in the past, 217 on admission> 208 Likely due to demand ischemia and CKD -Order echocardiogram - Telemetry CKD Solitary kidney -Strict I's and O's -Daily BMP -Get urinalysis - FeUrea suggests prerenal, could be cardiorenal syndrome Hypercalcemia Ca, P, PTH, vitamin D in the am Productive cough Cough of brown/black/yellow sputum at different times Order sputum culture, order Legionella/strep antigen Will hold off antibiotics - s/p sputum culture 07/18 Atelectasis Start incentive spirometry Bilateral lower extremity venous insufficiency -Lymphedema treatment -Applied bilateral to rule out clots BPH Dysuria Increase tamsulosin 0.4 mg to 0.8 mg Bladder scan every shift Send urinalysis Multiple left lower leg ulcers [place] related to venous insufficiency Wound care consult Anemia Thrombocytopenia Myoplastic syndrome Hemoglobin chronically low, 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 Recently had IV iron infusion for stamina/dizziness, which helped. Reported possible melena. Monitor daily Start pantoprazole 40 mg p.o. Had upper endoscopy and colonoscopy in 2021, which revealed erosions in the duodenum Hypokalemia Protocol ordered Chronic A-fib Self rate controlled Continue Eliquis 2.5 mg twice daily (age greater than 80, creatinine greater than 2) VIANNEY Continue CPAP Anticoagulation Orders (Includes Only Anticoagulants) apixaban ANTICOAGULANT, 2.5 mg, Oral, BID Therapy: PT, OT Willis:Not present Lines: None Current Diet Orders Placed This Encounter Combination Diet Low Saturated Fat Na <2400mg Diet, No Caffeine Diet Clinically Significant Risk Factors # Hypokalemia: Lowest K = 2.9 mmol/L in last 2 days, will replace as needed # Hypochloremia: Lowest Cl = 92 mmol/L in last 2 days, will monitor as appropriate # Anion Gap Metabolic Acidosis: Highest Anion Gap = 19 mmol/L in last 2 days, will monitor and treat as appropriate # Thrombocytopenia: Lowest platelets = 109 in last 2 days, will monitor for bleeding # Hypertension: Noted on problem list # Acute heart failure with preserved ejection fraction: heart failure noted on problem list, last echo with EF >50%, and receiving IV diuretics # Obesity: Estimated body mass index is 36.03 kg/m?? as calculated from the following: Height as of this encounter: 1.778 m (5' 10). Weight as of this encounter: 113.9 kg (251 lb 1.7 oz)., PRESENT ON ADMISSION Interval History/Subjective: Feeling the same today. Not moving much so not sure if he is still short of breath. Physical Exam/Objective: Temp: [97.5 ??F (36.4 ??C)-98.6 ??F (37 ??C)] 98.6 ??F (37 ??C) Pulse: [70-81] 81 Resp: [17-20] 18 BP: (103-141)/(62-72) 109/66 SpO2: [74 %-97 %] 74 % Wt Readings from Last 4 Encounters: 07/18/24 113.9 kg (251 lb 1.7 oz) 07/06/24 113.6 kg (250 lb 6.4 oz) 05/10/24 111.3 kg (245 lb 6.4 oz) 05/05/24 111.2 kg (245 lb 3.2 oz) Body mass index is 36.03 kg/m??. General Appearance: Alert and wake, not in distress Respiratory: low air movement, fine crackles at lung base Cardiovascular: irregular GI: soft, non-tender, normal bowel sound Neurology: oriented x 3 Psych: cooperative and calm, normal affect Medications: Personally Reviewed. Medications Current Facility-Administered Medications Medication Dose Route Frequency Provider Last Rate Last Admin Current Facility-Administered Medications Medication Dose Route Frequency Provider Last Rate Last Admin allopurinol (ZYLOPRIM) tablet 200 mg 200 mg Oral Daily Chantal Magaña MD 200 mg at 07/18/24 0837 apixaban ANTICOAGULANT (ELIQUIS) tablet 2.5 mg 2.5 mg Oral BID Chantal Magaña MD 2.5 mg at 07/18/24 0837 bumetanide (BUMEX) injection 4 mg 4 mg Intravenous Q8H Chantal Magaña MD 4 mg at 07/18/24 0418 docusate sodium (COLACE) capsule 100 mg 100 mg Oral BID Chantal Magaña MD empagliflozin (JARDIANCE) tablet 10 mg 10 mg Oral Daily Chantal Magaña MD 10 mg at 07/18/24 0837 insulin aspart (NovoLOG) injection (RAPID ACTING) 1-7 Units Subcutaneous TID AC Chantal Magaña MD insulin aspart (NovoLOG) injection (RAPID ACTING) 1-5 Units Subcutaneous At Bedtime Chantal Magaña MD [Held by provider] metolazone (ZAROXOLYN) tablet 2.5 mg 2.5 mg Oral Once per day on ThursdayChantal Magaña MD metolazone (ZAROXOLYN) tablet 5 mg 5 mg Oral Daily Chantal Magaña MD 5 mg at 07/18/24 0837 pantoprazole (PROTONIX) EC tablet 40 mg 40 mg Oral QAM AC Chantal Magaña MD 40 mg at 07/18/24 0837 polyethylene glycol (MIRALAX) Packet 17 g 17 g Oral BID Chantal Magaña MD potassium chloride brett ER (KLOR-CON M20) CR tablet 20 mEq 20 mEq Oral Once Bari Hudson MD sodium chloride (PF) 0.9% PF flush 3 mL 3 mL Intracatheter Q8H Chantal Magaña MD 3 mL at 07/17/24 2040 tamsulosin (FLOMAX) capsule 0.8 mg 0.8 mg Oral Daily Chantal Magaña MD 0.8 mg at 07/18/24 0837 Data reviewed today: I personally reviewed all new medications, labs, imaging/diagnostics reports over the past 24 hours. Pertinent findings include: Imaging: Recent Results (from the past 24 hours) Echocardiogram Complete Result Value LVEF 50-55% (borderline) Narrative [id number]^GÓMEZ^[place] [address] Name: SHIVA MONIQUE : 1940 Study Date: 07/17/2024 02:33 PM Age: 83 yrs Gender: Male Patient Location: [facility] Reason For Study: Dyspnea Ordering Physician: CHANTAL MAGAÑA Performed By: WILLIAN BSA: 2.3 m2 Height: 70 in Weight: 253 lb HR: 86 BP: 121/67 mmHg Procedure Echocardiogram with two-dimensional, color and spectral Doppler. Compared to the prior study dated 02/12/2024, there have been no changes. Interpretation Summary 1.Left ventricular function is decreased. The ejection fraction is 50-55% (borderline). 2.There is mild concentric left ventricular hypertrophy. 3.Flattened septum is consistent with RV pressure/volume overload. 4.The right ventricle is mildly dilated. Mildly decreased right ventricular systolic function 5.There is mild to moderate (1-2+) mitral regurgitation. ERO is 0.17 cm2 with a volume of 21 mL. 6.There is mod-severe to severe (3-4+) tricuspid regurgitation. 7.Right ventricular systolic pressure is elevated, consistent with moderate pulmonary hypertension. 8.Moderate ascending Aorta dilatation is present 44 mm. 9.IVC diameter >2.1 cm collapsing <50% with sniff suggests a high RA pressure estimated at 15 mmHg or greater. Compared to the prior study dated 02/12/2024, the LV is weaker and the RV enlarged and weaker and the TR now severe. I WMSI = 1.00 % Normal = 100 X - Cannot 0 - (2) - Mildly 2 - Segments Size Interpret Hyperkinetic 1 - Normal Hypokinetic Hypokinetic 1-2 small 7 - 3-5 moderate 3 - Akinetic 4 - 5 - 6 - Akinetic Dyskinetic 6-14 large Dyskinetic Aneurysmal w/scar w/scar 15-16 diffuse Left Ventricle Left ventricular function is decreased. The ejection fraction is 50-55% (borderline). There is mild concentric left ventricular hypertrophy. Left ventricular diastolic function is not assessable. Flattened septum is consistent with RV pressure/volume overload. Right Ventricle The right ventricle is mildly dilated. TAPSE is abnormal, which is consistent with abnormal right ventricular systolic function. Mildly decreased right ventricular systolic function. Atria The left atrium is moderately dilated. The right atrium is moderately dilated. There is no color Doppler evidence of an atrial shunt. Mitral Valve Mitral valve leaflets appear normal. There is mild to moderate (1-2+) mitral regurgitation. ERO is 0.17 cm2 with a volume of 21 mL. There is no mitral valve stenosis. Tricuspid Valve The tricuspid valve is not well visualized, but is grossly normal. There is mod-severe to severe (3-4+) tricuspid regurgitation. Right ventricular systolic pressure is elevated, consistent with moderate pulmonary hypertension. Aortic Valve Aortic valve leaflets appear normal. There is no evidence of aortic stenosis or clinically significant aortic regurgitation. The aortic valve is trileaflet. No aortic regurgitation is present. No aortic stenosis is present. Pulmonic Valve The pulmonic valve is not well seen, but is grossly normal. This degree of valvular regurgitation is within normal limits. There is no pulmonic valvular stenosis. Vessels The aorta root is normal. Ascending Aorta dilatation is present. IVC diameter >2.1 cm collapsing <50% with sniff suggests a high RA pressure estimated at 15 mmHg or greater. Pericardium Trivial posterior pericardial effusion. Rhythm The rhythm was atrial fibrillation. MMode/2D Measurements & Calculations IVSd: 1.2 cm LVIDd: 5.5 cm LVIDs: 3.8 cm LVPWd: 1.1 cm FS: 31.0 % LV mass(C)d: 260.0 grams LV mass(C)dI: 112.7 grams/m2 Ao root diam: 4.2 cm LA dimension: 5.3 cm asc Aorta Diam: 4.4 cm LA/Ao: 1.3 LVOT diam: 2.2 cm LVOT area: 3.8 cm2 Ao root diam index Ht(cm/m): 2.4 Ao root diam index BSA (cm/m2): 1.8 Asc Ao diam index BSA (cm/m2): 1.9 Asc Ao diam index Ht(cm/m): 2.5 EF Biplane: 47.9 % LA Volume (BP): 93.8 ml LA Volume Index (BP): 40.6 ml/m2 LA Volume Indexed (AL/bp): 43.7 ml/m2 RV Base: 5.5 cm RWT: 0.41 TAPSE: 1.0 cm Time Measurements MM HR: 90.0 BPM Doppler Measurements & Calculations MV E max lizy: 97.3 cm/sec MV dec slope: 463.3 cm/sec2 MV dec time: 0.22 sec Ao V2 max: 121.0 cm/sec Ao max P.0 mmHg Ao V2 mean: 91.6 cm/sec Ao mean P.0 mmHg Ao V2 VTI: 25.0 cm CLAUDIA(I,D): 2.4 cm2 CLAUDIA(V,D): 2.5 cm2 LV V1 max P.6 mmHg LV V1 max: 80.1 cm/sec LV V1 VTI: 16.0 cm MR PISA: 2.3 cm2 MR ERO: 0.17 cm2 MR volume: 21.3 ml SV(LVOT): 60.7 ml SI(LVOT): 26.3 ml/m2 TR max lizy: 309.0 cm/sec TR max P.2 mmHg AV Lizy Ratio (DI): 0.66 CLAUDIA Index (cm2/m2): 1.1 E/E': 13.1 E/E' av.6 Lateral E/e': 13.1 Medial E/e': 18.1 Peak E' Lizy: 7.4 cm/sec RV S Lizy: 7.6 cm/sec Report approved by: Shlomo Robins MD on 07/17/2024 04:04 PM Labs: Echocardiogram Complete Final Result US Lower Extremity Venous Duplex Bilateral Final Result IMPRESSION: 1. No deep venous thrombosis in the bilateral lower extremities. Chest XR, PA & LAT Final Result IMPRESSION: Moderately enlarged cardiac silhouette with central pulmonary vascular congestion, diffuse interstitial edema, and small right and trace left pleural effusions, suggesting CHF exacerbation. Bibasilaropacities are favored to reflect atelectasis. No pneumothorax. Aortic atherosclerotic calcifications. NM Lexiscan stress test (Results Pending) Recent Results (from the past 24 hours) Potassium Collection Time: 07/17/24 2:50 PM Result Value Ref Range Potassium 2.9 (L) 3.4 - 5.3 mmol/L Echocardiogram Complete Collection Time: 07/17/24 3:03 PM Result Value Ref Range LVEF 50-55% (borderline) Glucose by meter Collection Time: 07/17/24 4:46 PM Result Value Ref Range GLUCOSE BY METER POCT 136 (H) 70 - 99 mg/dL Potassium Collection Time: 07/17/24 8:28 PM Result Value Ref Range Potassium 3.3 (L) 3.4 - 5.3 mmol/L Glucose by meter Collection Time: 07/17/24 9:32 PM Result Value Ref Range GLUCOSE BY METER POCT 113 (H) 70 - 99 mg/dL Legionella Urinary Antigen and Streptococcus pneumoniae antigen Collection Time: 07/17/24 10:24 PM Specimen: Urine, Clean Catch Result Value Ref Range Legionella pneumophila serogroup 1 urinary antigen Negative Negative Streptococcus pneumoniae antigen Negative Negative Legionella pneumophila Urinary/Strep pneumoniae Antigen Specimen Type Urine UA with Microscopic reflex to Culture Collection Time: 07/17/24 10:24 PM Specimen: Urine, Clean Catch Result Value Ref Range Color Urine Colorless Colorless, Straw, Light Yellow, Yellow Appearance Urine Clear Clear Glucose Urine Negative Negative mg/dL Bilirubin Urine Negative Negative Ketones Urine Negative Negative mg/dL Specific [place] Urine 1.008 1.001 - 1.030 Blood Urine Negative Negative pH Urine 6.5 5.0 - 7.0 Protein Albumin Urine Negative Negative mg/dL Urobilinogen Urine Normal Normal mg/dL Nitrite Urine Negative Negative Leukocyte Esterase Urine Negative Negative Mucus Urine Present (A) None Seen /LPF RBC Urine 0 <=2 /HPF WBC Urine 0 <=5 /HPF Sodium random urine Collection Time: 07/17/24 10:24 PM Result Value Ref Range Sodium Urine mmol/L 85 mmol/L Urea nitrogen random urine with Creat Ratio Collection Time: 07/17/24 10:24 PM Result Value Ref Range Urea Nitrogen Urine mg/dL 262.0 (L) 801.0 - 1,666.0 mg/dL Potassium Collection Time: 07/18/24 2:54 AM Result Value Ref Range Potassium 3.4 3.4 - 5.3 mmol/L Basic metabolic panel Collection Time: 07/18/24 2:54 AM Result Value Ref Range Sodium 136 135 - 145 mmol/L Potassium 3.4 3.4 - 5.3 mmol/L Chloride 94 (L) 98 - 107 mmol/L Carbon Dioxide (CO2) 28 22 - 29 mmol/L Anion Gap 14 7 - 15 mmol/L Urea Nitrogen 85.1 (H) 8.0 - 23.0 mg/dL Creatinine 2.81 (H) 0.67 - 1.17 mg/dL GFR Estimate 22 (L) >60 mL/min/1.73m2 Calcium 10.5 (H) 8.8 - 10.4 mg/dL Glucose 103 (H) 70 - 99 mg/dL Hepatic panel Collection Time: 07/18/24 2:54 AM Result Value Ref Range Protein Total 6.7 6.4 - 8.3 g/dL Albumin 3.6 3.5 - 5.2 g/dL Bilirubin Total 0.8 <=1.2 mg/dL Alkaline Phosphatase 113 40 - 150 U/L AST 23 0 - 45 U/L ALT 20 0 - 70 U/L Bilirubin Direct 0.41 0.00 - 0.45 mg/dL CBC with platelets Collection Time: 07/18/24 2:54 AM Result Value Ref Range WBC Count 7.7 4.0 - 11.0 10e3/uL RBC Count 2.90 (L) 4.40 - 5.90 10e6/uL Hemoglobin 9.3 (L) 13.3 - 17.7 g/dL Hematocrit 27.8 (L) 40.0 - 53.0 % MCV 96 78 - 100 fL MCH 32.1 26.5 - 33.0 pg MCHC 33.5 31.5 - 36.5 g/dL RDW 16.3 (H) 10.0 - 15.0 % Platelet Count 109 (L) 150 - 450 10e3/uL Magnesium Collection Time: 07/18/24 2:54 AM Result Value Ref Range Magnesium 2.5 (H) 1.7 - 2.3 mg/dL Glucose by meter Collection Time: 07/18/24 7:24 AM Result Value Ref Range GLUCOSE BY METER POCT 122 (H) 70 - 99 mg/dL Potassium Collection Time: 07/18/24 8:55 AM Result Value Ref Range Potassium 3.4 3.4 - 5.3 mmol/L Glucose by meter Collection Time: 07/18/24 11:22 AM Result Value Ref Range GLUCOSE BY METER POCT 132 (H) 70 - 99 mg/dL Pending Labs: Unresulted Labs Ordered in the Past 30 Days of this Admission Date and Time Order Name Status Description 07/17/2024 11:54 AM Respiratory Aerobic Bacterial Culture with Gram Stain In process CHANTAL MAGAÑA MD [facility] Phone: #[phone] Securely message me with Vocera (more info) * Gen Franks, RN - 07/18/2024 11:53 AM CDT Nuclear Medicine Lexiscan Stress Test: Pt refusing this stress test. Discussed with pt's nurse, Trevin Baldwin RN. Dr. Rueda notified of pt's refusal. * Piedad Oconnell OTR - 07/18/2024 10:53 AM CDT 07/18/24 1015 Appointment Info Signing Clinician's Name / Credentials (OT) Shae Oconnell, OTR/L Living Environment People in Home spouse (has supportive daughter nearby) Current Living Arrangements house Living Environment Comments has rts with arms over toilet, walk in shower with bars, 3 reachers Self-Care Usual Activity Tolerance moderate Current Activity Tolerance fair Equipment Currently Used at Home walker, rolling (4 wheels and a seat) Activity/Exercise/Self-Care Comment pt ind with adls Instrumental Activities of Daily Living (IADL) IADL Comments does all General Information Onset of Illness/Injury or Date of Surgery 07/17/24 Referring Physician Chantal Magaña Patient/Family Therapy Goal Statement (OT) keep this purewick in until I stop peeing so much. Additional Occupational Profile Info/Pertinent History of Current Problem Shiva Monique is a 83 yearold male with PMH signficant for congestive heart failure with preserved ejection fraction, chronicatrial fibrillation, chronic kidney disease, type 2 diabetes, gout, solitary kidney, VIANNEY on CPAP, myelodysplastic syndrome. Presented with dyspnea and leg swelling since April 2024 on 07/17/2024 afterbeing urged by daughter. In the ED, - vitals were stable not on oxygen. His creatinine is 2.82, slightly down from previous 110 days ago, he has elevated BNP and troponin. Hemoglobin 9.9 and plateletis 114. Chest x-ray showed bilateral small pleural effusion and atelectasis. ED started Bumex 3 mg IV. Patient is admitted for supervised IV diuretics for heart failure exacerbation. Cognitive Status Examination Orientation Status orientation to person, place and time Affect/Mental Status (Cognitive) WFL Range of Motion Comprehensive General Range of Motion no range of motion deficits identified Strength Comprehensive (MMT) General Manual Muscle Testing (MMT) Assessment no strength deficits identified Bed Mobility Comment (Bed Mobility) pt declined to get oob due to purewick. He was adament that it not be removed due to excessive urination Transfers Transfer Comments pt stated that prior to coming to the hospital he was very SOB with minimal activity. Clinical Impression Criteria for Skilled Therapeutic Interventions Met (OT) Yes, treatment indicated OT Diagnosis decreased activity tolerance OT Problem List-Impairments impacting ADL problems related to;activity tolerance impaired Assessment of Occupational Performance 1-3 Performance Deficits Identified Performance Deficits activty tolerance, Planned Therapy Interventions (OT) progressive activity/exercise;home program guidelines Clinical Decision Making Complexity (OT) detailed assessment/moderate complexity Risk & Benefits of therapy have been explained evaluation/treatment results reviewed;care plan/treatment goals reviewed;risks/benefits reviewed;current/potential barriers reviewed;participants voiced agreement with care plan;participants included;patient;spouse/significant other;daughter OT Total Evaluation Time OT Eval, Moderate Complexity Minutes (38123) 10 OT Goals Therapy Frequency (OT) 5 times/week OT Predicted Duration/Target Date for Goal Attainment 07/23/24 OT Goals Aerobic Activity OT: Perform aerobic activity with stable cardiovascular response intermittent activity;15 minutes;ambulation (and with adls) Interventions Interventions Quick Adds Self-Care/Home Management Self-Care/Home Management Self-Care/Home Mgmt/ADL, Compensatory, Meal Prep Minutes ([id number]) 10 Symptoms Noted During/After Treatment (Meal Preparation/Planning Training) none Treatment Detail/Skilled Intervention Began teaching pt how to perfrom pursed lips breathing to enhance oxygenated blood and reduce SOB. Pt needs more practice with this so PLB can become effective. Began reviewing the heart failure stoplight handout with patient and family. Encouraged them to hangit on the fridge rater or bathroom near, somewhere patient and will see it every day. anddaughter very interested in stoplight handout. Patient said he has seen it before and has it in a folder somewhere at home. Will see patient tomorrow when he hopefully will agree to get out of bed. OT Discharge Planning OT Plan increase activity tolerance with adls and ambulation, continue to teach EC/WS with adls. OT Discharge Recommendation (DC Rec) home OT Rationale for DC Rec pt has good support at home. OT Brief overview of current status began teaching CHF stoplight tool and PLB with pt and an ddaughter. Handouts given to family. OT Total Distance Amb During Session (feet) 0 Total Session Time Timed Code Treatment Minutes 10 Total Session Time (sum of timed and untimed services) 20 * Evonne Rueda MD - 07/18/2024 10:08 AM CDT Images from the original note were not included. HEART CARE CONSULTATON NOTE Assessment/Recommendations Assessment/Plan: Acute on chronic congestive heart failure, unspecified type, in the setting of preserved ejection fraction of 55-60%. 07/17/2024 echo showed a mild decrease in LV function, EF 50-55%. Dry weight: ~245. In early June 2024, pt reported 15-20 lb weight gain. Today, 251 lbs. Continue diuresis with IV Bumex 4 mg q8h and PO metolazone 5 mg daily. Daily weights with I/O's. Atrial fibrillation, chronic, anticoagulated with Eliquis. Rate controlled. Chronic kidney disease, managed with Bumex outpatient. Monitor renal function while diuresing. Troponin elevation, 217 decreased to 202. Repeat echo identified decreased LV function. Nuclear stress test normal in 2019. Repeat Lexiscan stress test given decreased LV function. This was recommended however patient has declined testing at this time. Moderate right ventricular dysfunction, most likely 2/2 severe tricuspid regurgitation and sleep apnea. 07/17 echo revealed increased RV systolic pressure, consistent with moderate pulmonary hypertension. Increased peripheral edema. Suggest outpatient follow up to consider tricuspid valve clip. Clinically Significant Risk Factors # Hypokalemia: Lowest K = 2.9 mmol/L in last 2 days, will replace as needed # Hypochloremia: Lowest Cl = 92 mmol/L in last 2 days, will monitor as appropriate # Anion Gap Metabolic Acidosis: Highest Anion Gap = 19 mmol/L in last 2 days, will monitor and treat as appropriate # Thrombocytopenia: Lowest platelets = 109 in last 2 days, will monitor for bleeding # Hypertension: Noted on problem list # Acute heart failure with preserved ejection fraction: heart failure noted on problem list, last echo with EF >50%, and receiving IV diuretics # Obesity: Estimated body mass index is 36.03 kg/m?? as calculated from the following: Height as of this encounter: 1.778 m (5' 10). Weight as of this encounter: 113.9 kg (251 lb 1.7 oz). , PRESENT ON ADMISSION History of Present Illness/Subjective HPI: Shiva Monique is a 83 year old male who presented to the ED for dyspnea and BLE edema since April 2024. In early June 2024, pt noted a 15-20 lb weight gain. Long h/o dyspnea and orthopnea. On presentation, he denied chest pain and palpitations but described a sensation of chest congestion after dinner. More recently, he noticed an increase in SOB and peripheral edema. His PCP adjusted Bumex dose to 4 mg BID from 3 mg BID a month earlier with little to no response. He reported consistently taking his diuretics, including metolazone. Physical Examination Review of Systems VITALS: BP 103/67 (BP Location: Right arm) Pulse 71 Temp 97.8 ??F (36.6 ??C) (Oral) Resp 18 Ht 1.778 m (5' 10) Wt 113.9 kg (251 lb 1.7 oz) SpO2 97% BMI 36.03 kg/m?? BMI: Body mass index is 36.03 kg/m??. Wt Readings from Last 3 Encounters: 07/18/24 113.9 kg (251 lb 1.7 oz) 07/06/24 113.6 kg (250 lb 6.4 oz) 05/10/24 111.3 kg (245 lb 6.4 oz) Intake/Output Summary (Last 24 hours) at 07/18/2024 1009 Last data filed at 07/18/2024 0727 Gross per 24 hour Intake 960 ml Output 2100 ml Net -1140 ml General Appearance: no distress, normal body habitus ENT/Mouth: membranes moist, no oral lesions or bleeding gums. EYES: no scleral icterus, normal conjunctivae Neck: no carotid bruits or thyromegaly Chest/Lungs: lungs clear to auscultation, rales in lower lung bases bilaterally, no wheezing, no sternal scar, equal chest wall expansion Cardiovascular: irregularly irregular rhythm, normal rate. Holosystolic murmur, no rubs, nor gallops; the carotid, radial and posterior tibial pulses are intact, peripheral edema bilaterally Abdomen: no organomegaly, masses, bruits, or tenderness; bowel sounds are present Extremities: no cyanosis or clubbing Skin: no xanthelasma, warm. Neurologic: normal switch engineer bilateral, no tremors Psychiatric: alert and oriented x3, calm Review Of Systems Skin: negative Eyes: negative Ears/Nose/Throat: negative Respiratory: Shortness of breath- worsening, Dyspnea on exertion- long-standing, and Cough- productive Cardiovascular: irregular heart beat, dyspnea on exertion, orthopnea, and lower extremity edema Gastrointestinal: negative Genitourinary: negative Musculoskeletal: negative Neurologic: negative Psychiatric: negative Hematologic/Lymphatic/Immunologic: negative Endocrine: negative Lab Results Chemistry/lipid CBC Cardiac Enzymes/BNP/TSH/INR Recent Labs Lab Test 05/24/24 1058 TRIG 101 No results for input(s): LDL in the last 40302 hours. Recent Labs Lab Test 07/18/24 0855 07/18/24 0724 07/18/24 0254 NA -- -- 136 POTASSIUM 3.4 -- 3.4 3.4 CHLORIDE -- -- 94* CO2 -- -- 28 GLC -- 122* 103* BUN -- -- 85.1* CR -- -- 2.81* GFRESTIMATED -- -- 22* SHANA -- -- 10.5* Recent Labs Lab Test 07/18/24 0254 07/17/24 0851 07/06/24 1548 CR 2.81* 2.82* 3.22* Recent Labs Lab Test 02/16/24 0910 A1C 6.2* Recent Labs Lab Test 07/18/24 025 WBC 7.7 HGB 9.3* HCT 27.8* MCV 96 PLT 109* Recent Labs Lab Test 07/18/24 0254 07/17/24 0851 02/16/24 0910 HGB 9.3* 9.9* 11.2* No results for input(s): TROPONINI in the last 31769 hours. Recent Labs Lab Test 07/17/24 0851 07/06/24 1548 03/23/24 1623 NTBNP 8,393* 10,905 6,413* Recent Labs Lab Test 07/17/24 1040 TSH 2.72 Recent Labs Lab Test 12/12/21 1130 INR 1.67* Medical History Surgical History Family History Social [...] PLACEMENT; Surgeon: Jose Alberto Diallo MD; Location: [facility] OR ESOPHAGOSCOPY, GASTROSCOPY, DUODENOSCOPY (EGD), COMBINED N/A 12/13/2021 Procedure: ESOPHAGOGASTRODUODENOSCOPY (EGD) WITH BIOPSIES; Surgeon: Jose Alberto Diallo MD; Location: [facility] Main OR HERNIA REPAIR left nephrectomy[ [...] Currently Other Topics Concern Parent/sibling w/ CABG, [place] or angioplasty before 65F 55M? Not Asked Social History Narrative Not on file Social Drivers of Health Financial Resource Strain: Low Risk (07/17/2024) Financial Resource Strain Within the past 12 months, have you or your family members you live with been unable to get utilities (heat, electricity) when it was really needed?: No Food Insecurity: Low Risk (07/17/2024) Food Insecurity Within the past 12 months, did you worry that your food would run out before you got money to buy more?: No Within the past 12 months, did the food you bought just not last and you didn???t have money to getmore?: No Transportation Needs: Low Risk (07/17/2024) Transportation Needs Within the past 12 months, has lack of transportation kept you from medical appointments, getting your medicines, non-medical meetings or appointments, work, or from getting things that you need?: No Physical Activity: Not on file Stress: Not on file Social Connections: Unknown (02/27/2021) Received from [employer] [facility] Social Connections Frequency of Communication with Friends and Family: Not on file Interpersonal Safety: Low Risk (07/17/2024) Interpersonal Safety Do you feel physically and emotionally safe where you currently live?: Yes Within the past 12 months, have you been hit, slapped, kicked or otherwise physically hurt by someone?: No Within the past 12 months, have you been humiliated or emotionally abused in other ways by your partner or ex-partner?: No Housing Stability: Low Risk (07/17/2024) Housing Stability Do you have housing? : Yes Are you worried about losing your housing?: No Medications Allergies No current outpatient medications on file. Allergies Allergen Reactions Furosemide Rash Rash primarily on wrists, itchy. Amlodipine Besylate Unknown Folic Acid Diarrhea Claims to folic acid intolerant, causes diarrhea. This patient seen and discussed with him director, Dr. Evonne Rueda MD. Lucas Ngo MD Resident Physician, PGY-2 [facility] Patient seen and examined with . Spent 40 minutes. Agree with findings including history, physical, assessment and plan. Evonne Rueda MD * Pedro Blandon RT - 07/18/2024 3:27 AM CDT Patient has home CPAP in room. documented in this encounter H&P Notes * Chantal Magaña MD - 07/17/2024 11:[address] [facility] MEDICINE ADMISSION HISTORY AND PHYSICAL Date of Admission: 07/17/2024 Shiva Monique, 1940, [id number] Identification/Summary: Shiva Monique is a 83 year old male with PMH signficant for congestive heart failure with preserved ejection fraction, chronic atrial fibrillation, chronic kidney disease, type 2 diabetes, gout, solitary kidney, VIANNEY on CPAP, myelodysplastic syndrome. Presented with dyspnea and leg swelling since April 2024 on 07/17/2024 after being urged by daughter. In the ED, - vitals were stable not on oxygen. His creatinine is 2.82, slightly down from previous 110 days ago, he has elevated BNP and troponin. Hemoglobin 9.9 and platelet is 114. Chest x-ray showed bilateral small pleural effusion and atelectasis. ED started Bumex 3 mg IV. Patient is admitted for supervised IV diuretics for heart failure exacerbation. Assessment and Plan: Acute on chronic heart failure with preserved ejection fraction He has been on Bumex 4 mg twice daily since May. He has not noticed a change since the dose was increased from 3 mg twice daily. He is also on metolazone 2.5 mg on Thursday and , plus Jardiance 10 mg. -Start Bumex 4 mg IV every 8 hours -Start metolazone 5 mg once -Continue Jardiance -Check TSH, electrolytes, echocardiogram -Telemetry, strict I's and O's, daily weights - Ordered electrolyte replacement protocol -Cardiac diet, fluid restriction 1.8 L a day -Cardiology consult Troponin elevation He was in 160s to 170s in the past, 217 on admission> 208 Likely due to demand ischemia and CKD -Order echocardiogram - Telemetry CKD Solitary kidney -Strict I's and O's -Daily BMP - Get urinalysis Productive cough Cough of brown/black/yellow sputum at different times Order sputum culture, order Legionella/strep antigen Will hold off antibiotics Atelectasis Start incentive spirometry Bilateral lower extremity venous insufficiency -Lymphedema treatment -Applied bilateral to rule out clots BPH Dysuria Increase tamsulosin 0.4 mg to 0.8 mg Bladder scan every shift Send urinalysis Multiple left lower leg ulcers [place] related to venous insufficiency Wound care consult Anemia Thrombocytopenia Myoplastic syndrome Hemoglobin chronically low, 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 Recently had IV iron infusion for stamina/dizziness, which helped. Reported possible melena. Monitor daily Start pantoprazole 40 mg p.o. Had upper endoscopy and colonoscopy in 2021, which revealed erosions in the duodenum Hypokalemia Protocol ordered Chronic A-fib Self rate controlled Continue Eliquis 2.5 mg twice daily (age greater than 80, creatinine greater than 2) VIANNEY Continue CPAP Code Status: Full Code IVF: none FoleyNot present Disposition: Inpatient Clinically Significant Risk Factors Present on Admission # Hypokalemia: Lowest K = 3.3 mmol/L in last 2 days, will replace as needed # Hypochloremia: Lowest Cl = 92 mmol/L in last 2 days, will monitor as appropriate # Anion Gap Metabolic Acidosis: Highest Anion Gap = 19 mmol/L in last 2 days, will monitor and treat as appropriate # Drug Induced Coagulation Defect: home medication list includes an anticoagulant medication # Thrombocytopenia: Lowest platelets = 114 in last 2 days, will monitor for bleeding # Hypertension: Noted on problem list # Acute heart failure with preserved ejection fraction: heart failure noted on problem list, last echo with EF >50%, and receiving IV diuretics # Anemia: based on hgb <11 # Obesity: Estimated body mass index is 36.32 kg/m?? as calculated from the following: Height as of this encounter: 1.778 m (5' 10). Weight as of this encounter: 114.8 kg (253 lb 1.6 oz). Chief Complaint Dyspnea, leg swelling HISTORY Shiva Monique is a 83 year old male with PMH signficant for congestive heart failure with preserved ejection fraction, chronic atrial fibrillation, chronic kidney disease, type 2 diabetes, gout, solitary kidney, VIANNEY on CPAP. Presented with dyspnea and leg swelling since April 2024 on 07/17/2024 afterbeing urged by daughter. Patient has had dyspnea for years. He also has orthopnea but denies PND. He denies chest pain or palpitation but has some congestion in his chest after dinner so has been eating late dinner. He has noticed more shortness of breath and leg swelling since being released from hospital last time. His PCP increased his Bumex to 4 mg twice daily from 3 mg twice daily about a month ago. He has not noticed much effect. He does notice metolazone makes him pee more. He has been compliant with his diuretics. He also has productive cough, which is black/dark/yellow in color and different times. He has bilateral leg swelling and ulcers on the left leg have been bothering him. Walking with a rollator, but now has more problems doing that. He also has urge, urinary retention and dribbling, he has to get up every 1-4 hours to urinate at night. He was dizzy in the recent past, was offered IV iron infusion, which resolved most of his symptoms. He noticed dark stools/melena. Past Medical History Past Medical History: No date: Anesthesia complication Comment: confusion & crying after bilat carpal tunnel surgery No date: Arrhythmia Comment: a fib No date: Atrial fibrillation (H) No date: BPH (benign prostatic hyperplasia) No date: Chronic kidney disease No date: Colonic polyps No date: Congestive heart failure (H) No date: Cranial nerve palsy Comment: resolved No date: Diastolic dysfunction No date: Dyspnea on exertion No date: Eczema No date: GERD (gastroesophageal reflux disease) No date: HTN (hypertension) No date: Hyperlipidemia No date: Obesity 02/03/2022: VIANNEY (obstructive sleep apnea) No date: VIANNEY on CPAP No date: Renal disease Patient Active Problem List Diagnosis Date Noted Acute on chronic congestive heart failure, unspecified heart failure type (H) 07/17/2024 Priority: Medium Hypokalemia 03/23/2024 Priority: Medium VIANNEY (obstructive sleep apnea) 02/03/2022 Priority: Medium Permanent atrial fibrillation (H) 02/03/2022 Priority: Medium (HFpEF) heart failure with preserved ejection fraction (H) 01/07/2022 Priority: Medium 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 Incidentally noted on CT scan 11/2021 @ [facility] Iron deficiency anemia due to chronic blood loss 12/20/2021 Priority: Medium Iron malabsorption 12/20/2021 Priority: Medium Anemia, iron deficiency 12/12/2021 Priority: Medium IV Iron recommended received 500 mg (12/18/2021) due for another 500 mg as outpatient to complete one gram dose Acute kidney injury superimposed on chronic kidney disease 12/12/2021 Priority: Medium CAD (coronary artery disease) 12/12/2021 Priority: Medium Arthritis of knee, left 03/29/2013 Priority: Medium Single kidney 02/17/2011 Priority: Medium S/P left nephrectomy 02/10/11. Has solo right kidney. Post-op serum creatinine 02/17/11 1.98 mg/dl. Hyperlipidemia 08/05/2009 Priority: Medium Essential hypertension 11/30/2006 Priority: Medium Surgical History Past Surgical History: Procedure Laterality Date ARTHROPLASTY KNEE 03/29/2013 Procedure: ARTHROPLASTY KNEE; ARTHROPLASTY KNEE LEFT; Surgeon: Eric Pepper MD; Location: OR CAPSULE/PILL CAM ENDOSCOPY N/A 01/14/2022 Procedure: IMAGING PROCEDURE, GI TRACT, INTRALUMINAL, VIA CAPSULE; Surgeon: Jeb Burr MD;Location: GI COLONOSCOPY N/A 12/13/2021 Procedure: COLONOSCOPY WITH POLYPECTOMY AND CLIP PLACEMENT; Surgeon: Jose Alberto Diallo MD; Location: [facility] OR ESOPHAGOSCOPY, GASTROSCOPY, DUODENOSCOPY (EGD), COMBINED N/A 12/13/2021 Procedure: ESOPHAGOGASTRODUODENOSCOPY (EGD) WITH BIOPSIES; Surgeon: Jose Alberto Diallo MD; Location: [facility] Main OR HERNIA REPAIR left nephrectomy[ RELEASE CARPAL TUNNEL BILATERAL right total knee arthroplasty[ Family History Family History Problem Relation Age of Onset Cancer Mother Lymphoma Other - See Comments Father ALS Thrombophilia Other Brother and sister Liver Disease No family hx of Social History Social History Tobacco Use Smoking status: Never Smokeless tobacco: Never Vaping Use Vaping status: Never Used Substance Use Topics Alcohol use: Yes Comment: very rare Drug use: No Allergies Allergies Allergen Reactions Furosemide Rash Rash primarily on wrists, itchy. Amlodipine Besylate Unknown Folic Acid Diarrhea Claims to folic acid intolerant, causes diarrhea. Prior to Admission Medications Prior to Admission Medications Prescriptions Last Dose Informant Patient Reported? Taking? Glucosamine-Chondroitin (COSAMIN DS PO) 07/17/2024 Morning Yes Yes Sig: Take 1 tablet by mouth 2 times daily. Cosamin DS 500/400 mg allopurinol (ZYLOPRIM) 100 MG tablet 07/17/2024 Morning Yes Yes Sig: Take 200 mg by mouth daily apixaban ANTICOAGULANT (ELIQUIS ANTICOAGULANT) 2.5 MG tablet 07/17/2024 Morning No Yes Sig: Take 1 tablet (2.5 mg) by mouth 2 times daily. betamethasone dipropionate (DIPROSONE) 0.05 % external cream 07/17/2024 Yes Yes Sig: Apply topically daily. bumetanide (BUMEX) 1 MG tablet 07/16/2024 Evening No Yes Sig: Take 3 tablets (3 mg) by mouth 2 times daily. desoximetasone (TOPICORT) 0.25 % external cream 07/17/2024 Yes Yes Sig: Apply topically 2 times daily as needed. empagliflozin (JARDIANCE) 10 MG TABS tablet 07/17/2024 No Yes Sig: TAKE 1 TABLET (10 MG) BY MOUTH DAILY metolazone (ZAROXOLYN) 2.5 MG tablet 07/14/2024 No Yes Sig: Take 1 tablet (2.5 mg) by mouth twice a week. Take 1 tablet twice weekly prn/as needed for weight gain/increasing edema potassium chloride brett ER (KLOR-CON M20) 20 MEQ CR tablet 07/17/2024 Morning No Yes Sig: Take 1 tablet (20 mEq) by mouth 2 times daily. tamsulosin (FLOMAX) 0.4 MG capsule 07/17/2024 Morning Yes Yes Sig: Take 0.4 mg by mouth daily Facility-Administered Medications: None Review of Systems A 12 point comprehensive review of systems was negative except as noted above in HPI. PHYSICAL EXAMINATION Vitals Temp: [97.4 ??F (36.3 ??C)] 97.4 ??F (36.3 ??C) Pulse: [72-80] 72 Resp: [12-22] 12 BP: (100-126)/(66-74) 119/74 SpO2: [92 %-96 %] 92 % Examination General Appearance: Alert and wake, not in distress Respiratory: clear lungs, mind fine crackles Cardiovascular: rhythmic, normal S1 and S2, no murmur, severe lower extremity edema up to the buttocks GI: soft, non-tender, normal bowel sound Neurology: oriented x 3 Psych: cooperative and calm, normal affect Pertinent Lab Results for orders placed or performed during the hospital encounter of 07/17/24 (from the past 24 hours) ECG 12-LEAD WITH MUSE (LHE) Result Value Ref Range Systolic Blood Pressure mmHg Diastolic Blood Pressure mmHg Ventricular Rate 71 BPM Atrial Rate 77 BPM MO Interval ms QRS Duration 188 ms QT 472 ms QTc 512 ms P [place] degrees R AXIS -77 degrees T [place] 47 degrees Interpretation ECG Atrial fibrillation Left axis deviation Right bundle branch block Inferior infarct (cited on or before 16-Feb-2024) Abnormal ECG When compared with ECG of 16-Feb-2024 09:18, No significant change was found Confirmed by SEE ED PROVIDER NOTE FOR, ECG INTERPRETATION ([id number]), editorial director Oneida Vasquez ([id number]) on 07/17/2024 8:51:16 AM CBC with Platelets & Differential Narrative The following orders were created for panel order CBC with Platelets & Differential. Procedure Abnormality Status --------- ------ CBC with platelets and ...[[id number]] Abnormal Final result Please view results for these tests on the individual orders. NT-proBNP Result Value Ref Range NT-proBNP 8,393 (H) 0 - 852 pg/mL Comprehensive metabolic panel Result Value Ref Range Sodium 135 135 - 145 mmol/L Potassium 3.3 (L) 3.4 - 5.3 mmol/L Carbon Dioxide (CO2) 24 22 - 29 mmol/L Anion Gap 19 (H) 7 - 15 mmol/L Urea Nitrogen 81.4 (H) 8.0 - 23.0 mg/dL Creatinine 2.82 (H) 0.67 - 1.17 mg/dL GFR Estimate 22 (L) >60 mL/min/1.73m2 Calcium 10.3 8.8 - 10.4 mg/dL Chloride 92 (L) 98 - 107 mmol/L Glucose 100 (H) 70 - 99 mg/dL Alkaline Phosphatase 122 40 - 150 U/L AST 27 0 - 45 U/L ALT 21 0 - 70 U/L Protein Total 7.1 6.4 - 8.3 g/dL Albumin 4.0 3.5 - 5.2 g/dL Bilirubin Total 0.8 <=1.2 mg/dL Troponin T, High Sensitivity Result Value Ref Range Troponin T, High Sensitivity 217 (HH) <=22 ng/L Magnesium Result Value Ref Range Magnesium 2.5 (H) 1.7 - 2.3 mg/dL CBC with platelets and differential Result Value Ref Range WBC Count 7.6 4.0 - 11.0 10e3/uL RBC Count 3.00 (L) 4.40 - 5.90 10e6/uL Hemoglobin 9.9 (L) 13.3 - 17.7 g/dL Hematocrit 28.6 (L) 40.0 - 53.0 % MCV 95 78 - 100 fL MCH 33.0 26.5 - 33.0 pg MCHC 34.6 31.5 - 36.5 g/dL RDW 16.6 (H) 10.0 - 15.0 % Platelet Count 114 (L) 150 - 450 10e3/uL % Neutrophils 72 % % Lymphocytes 14 % % Monocytes 10 % % Eosinophils 3 % % Basophils 0 % % Immature Granulocytes 0 % NRBCs per 100 WBC 0 <1 /100 Absolute Neutrophils 5.5 1.6 - 8.3 10e3/uL Absolute Lymphocytes 1.1 0.8 - 5.3 10e3/uL Absolute Monocytes 0.8 0.0 - 1.3 10e3/uL Absolute Eosinophils 0.2 0.0 - 0.7 10e3/uL Absolute Basophils 0.0 0.0 - 0.2 10e3/uL Absolute Immature Granulocytes 0.0 <=0.4 10e3/uL Absolute NRBCs 0.0 10e3/uL Extra Tube Narrative The following orders were created for panel order Extra Tube. Procedure Abnormality Status --------- ------ Extra Green Top (Lithiu...[[id number]] Final result Please view results for these tests on the individual orders. Extra Green Top ([place] Heparin) Tube Result Value Ref Range Hold Specimen JIC Chest XR, PA & LAT Narrative EXAM: XR CHEST 2 VIEWS LOCATION: [facility] DATE: 07/17/2024 INDICATION: sob, chf COMPARISON: Chest radiograph 02/16/2024. Impression IMPRESSION: Moderately enlarged cardiac silhouette with central pulmonary vascular congestion, diffuse interstitial edema, and small right and trace left pleural effusions, suggesting CHF exacerbation. Bibasilaropacities are favored to reflect atelectasis. No pneumothorax. Aortic atherosclerotic calcifications. Troponin T, High Sensitivity Result Value Ref Range Troponin T, High Sensitivity 202 (HH) <=22 ng/L Influenza A/B, RSV and SARS-CoV2 PCR (COVID-19) Nasopharyngeal Specimen: Nasopharyngeal; Swab Result Value Ref Range Influenza A PCR Negative Negative Influenza B PCR Negative Negative RSV PCR Negative Negative SARS CoV2 PCR Negative Negative Narrative Testing was performed using the Xpert Xpress CoV2/Flu/RSV Assay on the [employer] GeneXpert Instrument. This test should be ordered for the detection of SARS- CoV2, influenza, and RSV viruses in individuals with signs and symptoms of respiratory tract infection. This test is for in vitro diagnostic useunder the [place] FDA for laboratories certified under CLIA to perform high or moderate complexity testing. This test has been [place] FDA cleared. A negative result does not rule out the presence of PCR inhibitors in the specimen or target RNA in concentration below the limit of detection for the assay. If only one viral target is positive but coinfection with multiple targets is suspected, the sample should be re-tested with another FDA cleared, approved, or authorized test, if coninfection would change clinical management. This test was validated by the [facility]. These laboratories are certified under the Clinical Laboratory Improvement Amendments of 1988 (CLIA-88) as qualified to perfom high complexity laboratory testing. Pertinent Radiology Radiology Results: Recent Results (from the past 24 hours) Chest XR, PA & LAT Narrative EXAM: XR CHEST 2 VIEWS LOCATION: [facility] DATE: 07/17/2024 INDICATION: sob, chf COMPARISON: Chest radiograph 02/16/2024. Impression IMPRESSION: Moderately enlarged cardiac silhouette with central pulmonary vascular congestion, diffuse interstitial edema, and small right and trace left pleural effusions, suggesting CHF exacerbation. Bibasilaropacities are favored to reflect atelectasis. No pneumothorax. Aortic atherosclerotic calcifications. EKG Results: Personally interpreted, A-fib. Spoke with Dr. Jacob to discuss patient's care. I spoke with daughter and spouse in the room. CHANTAL MAGAÑA MD Hospitalist Hospital Medicine [facility] Phone: #[phone] documented in this encounter Consult Notes * Isha Esteban LSW - 07/18/2024 1:33 PM CDTAssociated Order(s): CARE MANAGEMENT / SOCIAL WORK IP CONSULT Care Management Initial Consult General Information Assessment completed with: Patient, Spouse or significant other, Children, Shiva, , and daughter Type of CM/SW Visit: Initial Assessment Primary Care Provider verified and updated as needed: Yes Readmission within the last 30 days: no previous admission in last 30 days Reason for Consult: utilization management concerns (20%) Advance Care Planning: NA Communication Assessment Patient's communication style: spoken language ([place] Islander or Bilingual) Hearing Difficulty or Deaf: yes Wear Glasses or Blind: no Cognitive Cognitive/Neuro/Behavioral: WDL Living Environment: People in home: spouse Shiva and cally Current living Arrangements: house Able to return to prior arrangements: yes Family/Social Support: Care provided by: spouse/significant other Provides care for: no one, unable/limited ability to care for self Marital Status: Support system: , Children Cally Description of Support System: Supportive, Involved Support Assessment: Adequate family and caregiver support Current Resources: Patient receiving home care services: No Community Resources: Equipment currently used at home: walker, rolling (4 wheels and a seat) Supplies currently used at home: Does the patient's insurance plan have a 3 day qualifying hospital stay waiver? No Lifestyle & Psychosocial Needs: Social Drivers of Health Food Insecurity: Low Risk (07/17/2024) Food Insecurity Within the past 12 months, did you worry that your food would run out before you got money to buy more?: No Within the past 12 months, did the food you bought just not last and you didn???t have money to getmore?: No Depression: Not at risk (03/23/2024) PHQ-2 PHQ-2 Score: 0 Housing Stability: Low Risk (07/17/2024) Housing Stability Do you have housing? : Yes Are you worried about losing your housing?: No Tobacco Use: Low Risk (07/06/2024) Patient History Smoking Tobacco Use: Never Smokeless Tobacco Use: Never Passive Exposure: Not on file Financial Resource Strain: Low Risk (07/17/2024) Financial Resource Strain Within the past 12 months, have you or your family members you live with been unable to get utilities (heat, electricity) when it was really needed?: No Alcohol Use: Not on file Transportation Needs: Low Risk (07/17/2024) Transportation Needs Within the past 12 months, has lack of transportation kept you from medical appointments, getting your medicines, non-medical meetings or appointments, work, or from getting things that you need?: No Physical Activity: Not on file Interpersonal Safety: Low Risk (07/17/2024) Interpersonal Safety Do you feel physically and emotionally safe where you currently live?: Yes Within the past 12 months, have you been hit, slapped, kicked or otherwise physically hurt by someone?: No Within the past 12 months, have you been humiliated or emotionally abused in other ways by your partner or ex-partner?: No Stress: Not on file Social Connections: Unknown (02/27/2021) Received from [employer] [facility] Social Connections Frequency of Communication with Friends and Family: Not on file Health Literacy: Not on file Functional Status: Prior to admission patient needed assistance: Dependent ADLs:: Ambulation-walker, Bathing, Dressing, Grooming Dependent IADLs:: Cleaning, Cooking, Laundry, Shopping, Meal Preparation, Medication Management, Money Management, Transportation Assesssment of Functional Status: Not at functional baseline Care Management Discharge Note Discharge Date: 07/19/2024 Discharge Disposition: Home Discharge Services: None Discharge DME: None Discharge Transportation: family or friend will provide Private pay costs discussed: Not applicable Does the patient's insurance plan have a 3 day qualifying hospital stay waiver? No Education Provided on the Discharge Plan: No Persons Notified of Discharge Plans: Shiva, Cally, and daughter in room Patient/Family in Agreement with the Plan: Yes Handoff Referral Completed: No, handoff not indicated or clinically appropriate Additional Information: President was consulted for high Urr - 20%. President met Shiva, Cally, and daughter in room. Shiva and family reported that he has no needs at this time. His is providing thewound care and doing a good job. His daughter is also involved with helping her parents. President signed off of consultation - has no needs to follow. Re-Consult if needs change. ROSAURA Sepulveda [phone] * Dwain Pascual RN - 07/18/2024 9:30 AM CDTAssociated Order(s): WOUND OSTOMY CONTINENCE NURSE IP CONSULT Images from the original note were not included. [facility] WO Nurse Inpatient Assessment Consulted for: L leg Summary: 07/18 Patient reports going to wound clinic in [place], and states wounds show improvement. Family at bedside agreed. WOC nurse follow-up plan: weekly Patient History (according to provider note(s): Shiva Monique is a 83 year old male who presented to the ED for dyspnea and BLE edema since April 2024. In early June 2024, pt noted a 15-20 lb weight gain. Long h/o dyspnea and orthopnea. On presentation, he denied chest pain and palpitations but described a sensation of chest congestion after dinner. More recently, he noticed an increase in SOB and peripheral edema. His PCP adjusted Bumex dose to4 mg BID from 3 mg BID a month earlier with little to no response. He reported consistently taking his diuretics, including metolazone. Assessment: Skin Injury Location: lower left leg Last photo: 07/18 Skin injury due to: Unclear etiology Skin history and plan of care: see above and patient stated as leg was swelling, blisters appeared early May 2024 Affected area: Skin assessment: Blistering and Denudement Measurements (length x width x depth, in cm) varying sizes, largest being 1.5 cm x 2.5 cm Color: pale and pink Temperature normal Drainage: none . Color: none Odor: none Pain: denies , none Pain interventions prior to dressing change: N/A Treatment goal: Heal STATUS: initial assessment Supplies ordered: ordered Xeroform and supplies stored on unit Treatment Plan: LLE wound(s): Thursday/Thursday/Thursday and PRN if dressing soiled, saturated or falls off Moisten gauze with Vashe and wring out excess, apply to wounds for 3-5 minutes, air dry Cover area with piece of Xeroform and cover with ABD and Kerlix. Orders: Written RECOMMEND PRIMARY TEAM ORDER: None, at this time Education provided: plan of care Discussed plan of care with: Patient and Family Notify WOC if wound(s) deteriorate. Nursing to notify the Provider(s) and re-consult the WOC Nurse if new skin concern. DATA: Current support surface: Standard Standard gel mattress (Isoflex) Containment of urine/stool: Incontinence Protocol BMI: Body mass index is 36.03 kg/m??. Active diet order: Orders Placed This Encounter Combination Diet Low Saturated Fat Na <2400mg Diet, No Caffeine Diet Output: I/O last 3 completed shifts: In: 840 [P.O.:840] Out: 2100 [Urine:2100] Labs: Recent Labs Lab 07/18/24 0254 ALBUMIN 3.6 HGB 9.3* WBC 7.7 Pressure injury risk assessment: Sensory Perception: 4-->no impairment Moisture: 3-->occasionally moist Activity: 3-->walks occasionally Mobility: 3-->slightly limited Nutrition: 3-->adequate Friction and Shear: 3-->no apparent problem Donnell Score: 19 MINNA Salvador RN CWOCN Pager no longer in use, please contact through [employer] group: [facility] * Katie Robins MD - 07/17/2024 1:45 PM CDTAssociated Order(s): CARDIOLOGY IP CONSULT Images from the original note were not included. CARDIOLOGY CONSULT NOTE Assessment: 1. Acute on chronic congestive heart failure, unspecified heart failure type (H)-historically in the setting of preserved ejection fraction of 55 to 60%. Echo pending this admission. Agree with careful IV diuresis watching creatinine. 2. Moderate right ventricular dysfunction-most likely secondary to sleep apnea or severe tricuspid regurgitation. As below, given tricuspid regurgitation, would not hesitate to seriously consider tricuspid valve clip. 3. Atrial fibrillation-permanent/chronic and on anticoagulation with Eliquis. Rate control strategy. 4. Tricuspid regurgitation-severe, given significant peripheral edema would not hesitate to consider tricuspid valve clip. 5. Chronic kidney disease-primary care provider with dosing Bumex, would continue Bumex and monitoring renal function. 6. Troponin elevation-level from 217 down to 202, not necessarily diagnostic of acute coronary syndrome. Nuclear stress test was normal in 2019, which suggest rechecking this. Plan: 1. Check our own echo. 2. IV Bumex. 3. Strongly recommend evaluation for tricuspid clip. 4. Can follow with Dr. Anthony Mazariegos primary him director. Current History: [facility] has been requested by Dr. Randolph to evaluate Shiva Monique who is a 83 year old year old white male for heart failure. Patient has a chronic history of shortness of breath, also does have some bipedal edema. He has noted increased bipedal edema for the last month to 2 months. He has been having water blisters forearmover the last several weeks were his lower extremities would then blister and drained. Given this, he was told to go to the emergency department, but eventually due to lack of beds did not present. On urging of and daughter he finally consented, was noted to have significant peripheral edemaand BNP of 8393 and cardiology consultation was requested. On further questioning, there is shortness of breath but not necessarily any PND, orthopnea, chest pains or palpitations. Past Medical History: Past Medical History: Diagnosis Date Anesthesia complication confusion & crying after bilat carpal tunnel surgery Atrial fibrillation (H) BPH (benign prostatic hyperplasia) Chronic kidney disease Colonic polyps Congestive heart failure (H) Cranial nerve palsy Eczema GERD (gastroesophageal reflux disease) HTN (hypertension) Hyperlipidemia Obesity VIANNEY (obstructive sleep apnea) 02/03/2022 Past history is negative for cancer, tuberculosis, diabetes mellitus, myocardial infarction, rheumatic fever, cerebrovascular accident, peptic ulcer disease, chronic obstructive pulmonary disease, orthyroid disorder. Past Surgical History: Past Surgical History: Procedure Laterality Date ARTHROPLASTY KNEE 03/29/2013 Procedure: ARTHROPLASTY KNEE; ARTHROPLASTY KNEE LEFT; Surgeon: Eric Pepper MD; Location: OR CAPSULE/PILL CAM ENDOSCOPY N/A 01/14/2022 Procedure: IMAGING PROCEDURE, GI TRACT, INTRALUMINAL, VIA CAPSULE; Surgeon: Jeb Burr MD;Location: U GI COLONOSCOPY N/A 12/13/2021 Procedure: COLONOSCOPY WITH POLYPECTOMY AND CLIP PLACEMENT; Surgeon: Jose Alberto Diallo MD; Location: [facility] OR ESOPHAGOSCOPY, GASTROSCOPY, DUODENOSCOPY (EGD), COMBINED N/A 12/13/2021 Procedure: ESOPHAGOGASTRODUODENOSCOPY (EGD) WITH BIOPSIES; Surgeon: Jose Alberto Diallo MD; Location: [facility] OR HERNIA REPAIR left nephrectomy[ RELEASE CARPAL TUNNEL BILATERAL right total knee arthroplasty[ Family History: Family history negative for coronary artery disease, positive for factor V Leiden deficiency. Social History: Reviewed, and he reports that he has never smoked. He has never used smokeless tobacco. He reports current alcohol use. He reports that he does not use drugs. 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 Emil Cope. Meds: Current Facility-Administered Medications Medication Dose Route Frequency Provider Last Rate Last Admin [START ON 07/18/2024] allopurinol (ZYLOPRIM) tablet 200 mg 200 mg Oral Daily Chantal Magaña MD apixaban ANTICOAGULANT (ELIQUIS) tablet 2.5 mg 2.5 mg Oral BID Chantal Magaña MD bumetanide (BUMEX) injection 1 mg 1 mg Intravenous Once Chantal Magaña MD bumetanide (BUMEX) injection 4 mg 4 mg Intravenous Q8H Chantal Magaña MD docusate sodium (COLACE) capsule 100 mg 100 mg Oral BID Chantal Magaña MD [START ON 07/18/2024] empagliflozin (JARDIANCE) tablet 10 mg 10 mg Oral Daily Chantal Magaña MD heparin ANTICOAGULANT injection 5,000 Units 5,000 Units Subcutaneous Q8H Chantal Magaña MD insulin aspart (NovoLOG) injection (RAPID ACTING) 1-7 Units Subcutaneous TID AC Chantal Magaña MD insulin aspart (NovoLOG) injection (RAPID ACTING) 1-5 Units Subcutaneous At Bedtime Chantal Magaña MD [START ON 07/18/2024] metolazone (ZAROXOLYN) tablet 2.5 mg 2.5 mg Oral Once per day on Thursday Chantal Magaña MD metolazone (ZAROXOLYN) tablet 5 mg 5 mg Oral Once Chantal Magaña MD pantoprazole (PROTONIX) EC tablet 40 mg 40 mg Oral QAM AC Chantal Magaña MD polyethylene glycol (MIRALAX) Packet 17 g 17 g Oral BID Chantal Magaña MD sodium chloride (PF) 0.9% PF flush 3 mL 3 mL Intracatheter Q8H Chantal Magaña MD [START ON 07/18/2024] tamsulosin (FLOMAX) capsule 0.8 mg 0.8 mg Oral Daily Chantal Magaña MD Allergies: Furosemide, Amlodipine besylate, and Folic acid Review of Systems: A 12 point comprehensive review of systems was as follows: General: Positive for fatigue, weight gain, negative weight loss Constitutional: negative for anorexia, chills, fevers, malaise, night sweats Eyes: negative for cataracts, color blindness, contacts/glasses, glaucoma, icterus, irritation, redness and visual disturbance Ears, nose, mouth, throat, and face: negative for ear drainage, earaches, epistaxis, facial trauma,hearing loss, hoarseness, nasal congestion, snoring, sore mouth, sore throat, tinnitus and voice change Respiratory: Positive dyspnea on exertion, negative cough, hemoptysis, sputum production, pleurisy,stridor, wheezing, PND, orthopnea Cardiovascular: Positive peripheral edema, negative for chest pain, chest pressure/discomfort, claudication, dyspnea, exertional chest pressure/discomfort, fatigue, irregular heart beat, near-syncope, palpitations, syncope Gastrointestinal: negative for abdominal pain, change in bowel haibits, constipation, diarrhea, dyspepsia, dysphagia, jaundice, melena, nausea, odynophagia, reflux symptoms and vomiting Genitourinary: negative for decreased stream Hematologic/lymphatic: negative for bleeding Musculoskeletal: negative for arthralgias, back pain, bone pain, muscle weakness, myalgias, neck pain and stiff joints Neurological: negative for syncope, presyncope, coordination problems, dizziness, gait problems, headaches, memory problems, paresthesia, seizures, speech problems, tremors, vertigo and weakness Objective: Physical Exam: BP 130/62 Pulse 79 Temp 97.4 ??F (36.3 ??C) (Oral) Resp 15 Ht 1.778 m (5' 10) Wt 114.8 kg (253 lb 1.6 oz) SpO2 97% BMI 36.32 kg/m?? Head: Normocephalic, without obvious abnormality, atraumatic Eyes: PERRL, conjunctiva/corneas clear, EOM's intact, Nose: Nares normal, septum midline, mucosa normal, no drainage or sinus tenderness Throat: Lips, mucosa, and tongue normal; teeth and gums normal Neck: Supple, symmetrical, trachea midline, no adenopathy; thyroid: No enlargement/tenderness/nodules; no carotid bruit, 2 jaw 30 degrees JVD Back: Symmetric, no curvature, ROM normal, no CVA tenderness Lungs: Clear to auscultation bilaterally, respirations unlabored Chest wall: No tenderness or deformity Heart: Irregularly irregular S1 and S2 normal, no murmur, rub or gallop Abdomen: Soft, non-tender, bowel sounds active all four quadrants, no masses, no organomegaly Extremities: Extremities normal, atraumatic, no cyanosis, 2-3/4 bipedal pitting edema Pulses: 2+ and symmetric all extremities Skin: Skin color, texture, turgor normal, no rashes or lesions Neurologic: CNII-XII intact. Normal strength, sensation and reflexes throughout Cardiographics and Imaging Radiology Results: Chest x-ray shows Moderately enlarged cardiac silhouette with central pulmonary vascular congestion, diffuse interstitial edema, and small right and trace left pleural effusions, suggesting CHF exacerbation. Bibasilar opacities are favored to reflect atelectasis. No pneumothorax. Aortic atherosclerotic calcifications. EKG Results: personally reviewed atrial fibrillation with controlled ventricular response, low voltage, leftward axis, right bundle branch block with repolarization changes. Lab Review Pertinent Labs Lab Results: personally reviewed No results found for: CKTOTAL, CKMB, TROPONINI Lab Results Component Value Date BUN 81.4 (H) 07/17/2024 NA 135 07/17/2024 CO2 24 07/17/2024 Lab Results Component Value Date WBC 7.6 07/17/2024 HGB 9.9 (L) 07/17/2024 HCT 28.6 (L) 07/17/2024 MCV 95 07/17/2024 PLT 114 (L) 07/17/2024 No results found for: BNP Clinically Significant Risk Factors Present on Admission # Hypokalemia: Lowest K = 3.3 mmol/L in last 2 days, will replace as needed # Hypochloremia: Lowest Cl = 92 mmol/L in last 2 days, will monitor as appropriate # Anion Gap Metabolic Acidosis: Highest Anion Gap = 19 mmol/L in last 2 days, will monitor and treat as appropriate # Drug Induced Coagulation Defect: home medication list includes an anticoagulant medication # Thrombocytopenia: Lowest platelets = 114 in last 2 days, will monitor for bleeding # Hypertension: Noted on problem list # Acute heart failure with preserved ejection fraction: heart failure noted on problem list, last echo with EF >50%, and receiving IV diuretics # Anemia: based on hgb <11 # Obesity: Estimated body mass index is 36.32 kg/m?? as calculated from the following: Height as of this encounter: 1.778 m (5' 10). Weight as of this encounter: 114.8 kg (253 lb 1.6 oz). Cardiac Arrhythmia: Atrial fibrillation: Permanent Hypokalemia CKD POA List: Stage 4 (GFR 15-29) documented in this encounter ED Notes * Aniceto Summers RN - 07/17/2024 1:03 PM CDT [facility] ED Handoff Report ED Chief Complaint: SOB ED Diagnosis: (I50.9) Acute on chronic congestive heart failure, unspecified heart failure type (H) PMH: Past Medical History: Diagnosis Date Anesthesia complication confusion & crying after bilat carpal tunnel surgery Arrhythmia a fib Atrial fibrillation (H) BPH (benign prostatic hyperplasia) Chronic kidney disease Colonic polyps Congestive heart failure (H) Cranial nerve palsy resolved Diastolic dysfunction Dyspnea on exertion Eczema GERD (gastroesophageal reflux disease) HTN (hypertension) Hyperlipidemia Obesity VIANNEY (obstructive sleep apnea) 02/03/2022 VIANNEY on CPAP Renal disease Code Status: Full Code Falls Risk: Yes Band: Applied Current Living Situation/Residence: lives with a significant other Elimination Status: Continent: wears briefs Activity Level: 2 assist Patient's Preferred Language: [place] 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 Cardiac Rhythm: AFib Pain Score: 0/10 Is the Patient Confused: No Last Food or Drink: 07/17/24 1300 Assessment and Plan of Care: PT has worsening CHF. IV diuretics for fluid retention. Has external cath in place. and daughter at the bedside and knowledgeable of Pts medical hx., Tests Performed: Done: Labs and Imaging Treatments Provided: IV Lasix Family Dynamics/Concerns: No Belongings Checklist Done and Signed by Patient: Yes Belongings Sent with Patient: pants, shirt, Slippers, red and black walker, wood cane Boarding medications sent with patient: yes Additional Information: n/a RN: Aniceto Summers RN 07/17/2024 1:03 PM * Gab Jacob MD - 07/17/2024 8:31 AM CDT EMERGENCY DEPARTMENT ENCOUNTER NAME: Shiva Monique AGE: [age] year old male DATE OF : 1940 EVALUATION DATE & TIME: 07/17/2024 8:30 AM PCP: Emil Cope ED PROVIDER: Gab Jacob M.D. Chief Complaint Patient presents with Shortness of Breath FINAL IMPRESSION: 1. Acute on chronic congestive heart failure, unspecified heart failure type (H) ED COURSE & MEDICAL DECISION MAKIN:42 AM I met with the patient, obtained history, performed an initial exam, and discussed options and plan for diagnostics and treatment here in the ED. 10:11 AM I rechecked and updated the patient and family on the patient's lab and imaging results. Discussed plan for admission. 10:23 AM I spoke with Dr. Magaña, Hospitalist, regarding plan for admission. The patient is accepted for admission. 10:32 AM I spoke with Dr. Robins, Cardiology, regarding patient plan of care. Pertinent Labs & Imaging studies reviewed. (See chart for details) 83 year old male presents to the Emergency Department for evaluation of shortness of breath patienthas history of CHF and. The nurse practitioner at the cardiology clinic 10 days ago wanted him admitted but the patient was unable to come to the hospital. Symptoms have continued. His blood work here does show a slight improvement in his BNP and his creatinine. His troponin is elevated today he has a history of elevated troponins and I suspected this was his baseline. Second troponin was the same and I do not believe this is ACS nor requires treatment as such. I do believe that based on the chest x-ray which has pulmonary congestion and a small effusion as well as the overall clinical presentation and elevated BNP that despite the improvement in some of these numbers that the patient does have an acute exacerbation of his CHF and would benefit from IV diuretics. Will give 3 mg IV Bumex and as well to the hospitalist and will admit the patient At the conclusion of the encounter I discussed the results of all of the tests and the disposition.The questions were answered. The patient or family acknowledged understanding and was agreeable with the care plan. ED Course as of 07/17/24 1238 Sun July 17, 2024 1008 Patient's blood work has slightly improved in some perspective from 10 days ago at the him director. BNP is slightly improved. Creatinine is slightly improved. His troponin today is 217 he does have an element of troponinemia and without any chest pain I do not believe this represents ACS so will not heparinize but will send a second troponin to confirm. Chest x-ray shows a small effusion but there is also pulmonary vascular congestion. I discussed all of this with the patient and it sounds as if he has definitely had a weight gain over the last couple months at least and his shortness of breath with exertion has most definitely worsened recently. Patient is a bit difficult to the hist orian but this was all confirmed through interviews with his daughter. Because of the worsening clinical symptoms and chest x-ray and despite the seemingly subtle improvement of the blood work I do think that admission for IV diuresis and blood work monitoring is most appropriate and the patient and family agrees. Will call the hospitalist and look to admit. Medical Decision Making Admit. MIPS (CTPE, Dental pain, Willis, Sinusitis, Asthma/COPD, Head Trauma): Not Applicable SEPSIS: None This patient involved a high degree of complexity in medical decision making, as significant risks were present and assessed. Recent encounters & results in medical record reviewed by me. Obtained History From patient and family Reviewed EMR Care Impacted by Chronic Illness CHF Additional Work up Considered CT scanning Independently Interpreted rhythm strip and CXR Discussed Care with Another provider hospitalist @Data Category 1 Non-ED record review, if applicable. External record reviewed: Reviewed recent office visit Visit to [facility] for continued heart failure follow-up recommendation from Dr. Mazariegos on 07/06/2024 Clinical information was obtained from an independent historian. History was obtained from: Patient, Significant other provided additional information in the HPI, and Daughter provided additional information in the HPI Chronic conditions affecting care: Permanent atrial fibrillation, VIANNEY on CPAP, HTN, HLD, HFpEF, CAD, MARTINA, myelodysplastic syndrome, acute on chronic heart failure and obesity All workup (i.e. any EKG/labs/imaging as per charting below) reviewed and independently interpretedby me. See respective sections for details. MEDICATIONS GIVEN IN THE EMERGENCY: Medications lidocaine 1 % 0.1-1 mL (has no administration in time range) lidocaine (LMX4) cream (has no administration in time range) sodium chloride (PF) 0.9% PF flush 3 mL (has no administration in time range) sodium chloride (PF) 0.9% PF flush 3 mL (has no administration in time range) acetaminophen (TYLENOL) tablet 650 mg (has no administration in time range) Or acetaminophen (TYLENOL) Suppository 650 mg (has no administration in time range) melatonin tablet 1 mg (has no administration in time range) docusate sodium (COLACE) capsule 100 mg (has no administration in time range) polyethylene glycol (MIRALAX) Packet 17 g (has no administration in time range) ondansetron (ZOFRAN ODT) ODT tab 4 mg (has no administration in time range) Or ondansetron (ZOFRAN) injection 4 mg (has no administration in time range) calcium carbonate (TUMS) chewable tablet 1,000 mg (has no administration in time range) benzocaine-menthol (CEPACOL) 15-3.6 MG lozenge 1 lozenge (has no administration in time range) miconazole (MICATIN) 2 % powder (has no administration in time range) guaiFENesin (ROBITUSSIN) 20 mg/mL solution 200 mg (has no administration in time range) heparin ANTICOAGULANT injection 5,000 Units (has no administration in time range) allopurinol (ZYLOPRIM) tablet 200 mg (has no administration in time range) apixaban ANTICOAGULANT (ELIQUIS) tablet 2.5 mg (has no administration in time range) empagliflozin (JARDIANCE) tablet 10 mg (has no administration in time range) metolazone (ZAROXOLYN) tablet 2.5 mg (has no administration in time range) tamsulosin (FLOMAX) capsule 0.8 mg (has no administration in time range) bumetanide (BUMEX) injection 4 mg (has no administration in time range) bumetanide (BUMEX) injection 1 mg (has no administration in time range) metolazone (ZAROXOLYN) tablet 5 mg (has no administration in time range) pantoprazole (PROTONIX) EC tablet 40 mg (has no administration in time range) glucose gel 15-30 g (has no administration in time range) Or dextrose 50 % injection 25-50 mL (has no administration in time range) Or glucagon injection 1 mg (has no administration in time range) insulin aspart (NovoLOG) injection (RAPID ACTING) (has no administration in time range) insulin aspart (NovoLOG) injection (RAPID ACTING) (has no administration in time range) bumetanide (BUMEX) injection 3 mg (3 mg Intravenous $Given 07/17/24 1115) NEW PRESCRIPTIONS STARTED AT TODAY'S ER VISIT New Prescriptions No medications on file HPI Patient information was obtained from: The patient, patient's spouse and patient's daughter Use of Hot Strip Finisher: N/A Shiva Monique is a 83 year old male with a pertinent history of permanent atrial fibrillation, VIANNEY on CPAP, HTN, HLD, HFpEF, CAD, MARTINA, myelodysplastic syndrome, acute on chronic heart failure and obesity, who presents for evaluation of persistent shortness of breath, weight gain and bilateral lower extremity swelling. Per chart review, the patient presented to [facility] for continued heart failure follow-up recommendation from Dr. Mazariegos on 07/06/2024. He was seen by Emily Cuello CNP. At that visit, the patient noted that his weight is up 15 to 20 pounds since his last heart failure clinic visit in March 2024. His current home weight was 255 pounds at that time. He reported shortness of breath with exertion and lower extremity edema, blister on his left leg with leg weeping. Per the patient, he stated that his PCP increased his Bumex to 4 mg twice a day couple weeks ago at that time. States that he was able to lose 11 pounds with increased Bumex dose, but then he gained 5 pounds back. Denied fatigue, shortness of breath, orthopnea, PND, palpitations, chest pain, and abdominal fullness/bloating. He uses walker for safety. Noted that he lives 45 minutes away from that [facility] in [place], and he preferred not to travel down there as he has to skip his Bumex and also difficulty with commute. He continued to decline to follow-up in heart failure clinic. Emily zepeda CNP, stated that given significant weight gain with acute heart failure symptoms, she recommended that he visit the ED for further evaluation and management with close monitoring of lab. The patient agreed to go to [facility] ED if there is a bed available. The INFECTION CONTROL NURSE called and spoke with the ED charge nurse. Per charge nurse, bed cannot be guaranteed and patient will be triaged first andwill be seen based on acuity level, and this was discussed and explained to the patient. She discussed the importance of ED visit for further evaluation and management with close monitoring of labs given worsening renal function, but the patient declined. He continued to decline to f/up with the HF clinic due to difficulty with commute. He further added that he had to hold his diuretic therapy because of traveling for this appointment. Follow-up with Dr. Mazariegos scheduled next month. The patient reports that he did not go to the ED the past 1.5 weeks as the provider (Emily Cuello CNP) he saw at the [facility] in [place] on 07/06/2024 recommended him to because to his worsening kidney function and increase in weight. She was concerned that he was retaining fluid, thus advised him to go to the ED, however, the patient declined on 07/06 because he was concerned that [facility] ED had no beds available for him to stay in. Today (07/17/2024), he decided to go to the ER because his daughter told him that he can no longer live like this, and the patient told her that he wasgoing to present to the ED this Thursday morning. The patient states that he has been 251 lbs all the time when he has checked it. He indicates that he always checks his weight every day. Over the last few weeks, he has gained 15-20 lbs. He notes that his weight went from 236 lbs last week or so ago to 251 lbs as of today when he weighted himself this morning (07/17/2024). The highest weight he has been recently was 261 lbs, per the patient. Over the course of the last week, the patient reports that the swelling in his bilateral lower extremities, his shortness of breath and his weight gain has remained the same and has not progressively worsened this past 1.5 weeks since he last saw the INFECTION CONTROL NURSE at the [facility] (his daughter also confirmed this as well). He noticed that he has what he calls water blisters since June 10, and he noticed that liquid began draining from these blisters. He has 5 of these blister and observed that he developed a new blister that is new as of the last few days. He has been seeing his wound care team at [place], and notes that the weeping has stopped since he last received care there. The patient reports that his dosage of his diuretic was increased to 8 mg from 6 mg on 07/06 when he saw the INFECTION CONTROL NURSE at the [facility] and he was taking 8 mg for some time, but he then switched to take his 6 mg because he states that he was told that he was supposed to be on 8 mg for a while. He doesnot know the exact date when he decreased his diuretic dose down to 6 mg after 07/06, be explains that he did this 1 week or less ago. He emphasize that he went back to take 6 mg because he was concerned about [his] kidney function. Of note, he also mentons that he has a severe bladder issues explaining that he has to use the restroom every half hour, but only drops of urine comes out when he attempts to urinate. He has seen aurologist for this in the past as this is an ongoing issue, and was previously started on a medication and was on this medication for 4 months. He had an appointment scheduled with his urologist in the past, but it was canceled a while ago. He has not followed up with his urologist since then. No additional complaints or concerns reported at this time. REVIEW OF SYSTEMS Review of Systems - Refer to HPI, otherwise negative PAST MEDICAL HISTORY: Past Medical History: Diagnosis Date Anesthesia complication confusion & crying after bilat carpal tunnel surgery Arrhythmia a fib Atrial fibrillation (H) BPH (benign prostatic hyperplasia) Chronic kidney disease Colonic polyps Congestive heart failure (H) Cranial nerve palsy resolved Diastolic dysfunction Dyspnea on exertion Eczema GERD (gastroesophageal reflux disease) HTN (hypertension) Hyperlipidemia Obesity VIANNEY (obstructive sleep apnea) 02/03/2022 VIANNEY on CPAP Renal disease PAST SURGICAL HISTORY: Past Surgical History: Procedure Laterality Date ARTHROPLASTY KNEE 03/29/2013 Procedure: ARTHROPLASTY KNEE; ARTHROPLASTY KNEE LEFT; Surgeon: Eric Pepper MD; Location: [facility] OR CAPSULE/PILL CAM ENDOSCOPY N/A 01/14/2022 Procedure: IMAGING PROCEDURE, GI TRACT, INTRALUMINAL, VIA CAPSULE; Surgeon: Jeb Burr MD;Location: [facility] GI COLONOSCOPY N/A 12/13/2021 Procedure: COLONOSCOPY WITH POLYPECTOMY AND CLIP PLACEMENT; Surgeon: Jose Alberto Diallo MD; Location: [facility] OR ESOPHAGOSCOPY, GASTROSCOPY, DUODENOSCOPY (EGD), COMBINED N/A 12/13/2021 Procedure: ESOPHAGOGASTRODUODENOSCOPY (EGD) WITH BIOPSIES; Surgeon: Jose Alberto Diallo MD; Location: [facility] Main OR HERNIA REPAIR left nephrectomy[ RELEASE CARPAL TUNNEL BILATERAL right total knee arthroplasty[ CURRENT MEDICATIONS: allopurinol (ZYLOPRIM) 100 MG tablet apixaban ANTICOAGULANT (ELIQUIS ANTICOAGULANT) 2.5 MG tablet betamethasone dipropionate (DIPROSONE) 0.05 % external cream bumetanide (BUMEX) 1 MG tablet desoximetasone (TOPICORT) 0.25 % external cream empagliflozin (JARDIANCE) 10 MG TABS tablet Glucosamine-Chondroitin (COSAMIN DS PO) metolazone (ZAROXOLYN) 2.5 MG tablet potassium chloride brett ER (KLOR-CON M20) 20 MEQ CR tablet tamsulosin (FLOMAX) 0.4 MG capsule ALLERGIES: Allergies Allergen Reactions Furosemide Rash Rash primarily on wrists, itchy. Amlodipine Besylate Unknown Folic Acid Diarrhea Claims to folic acid intolerant, causes diarrhea. FAMILY HISTORY: Family History Problem Relation Age of Onset Cancer Mother Lymphoma Other - See Comments Father ALS Thrombophilia Other Brother and sister Liver Disease No family hx of SOCIAL HISTORY: Social History Socioeconomic History Marital status: Tobacco Use Smoking status: Never Smokeless tobacco: Never Vaping Use Vaping status: Never Used Substance and Sexual Activity Alcohol use: Yes Comment: very rare Drug use: No Sexual activity: Not Currently Social Drivers of Health Financial Resource Strain: Low Risk (02/17/2024) Financial Resource Strain Within the past 12 months, have you or your family members you live with been unable to get utilities (heat, electricity) when it was really needed?: No Food Insecurity: Low Risk (02/17/2024) Food Insecurity Within the past 12 months, did you worry that your food would run out before you got money to buy more?: No Within the past 12 months, did the food you bought just not last and you didn???t have money to getmore?: No Transportation Needs: Low Risk (02/17/2024) Transportation Needs Within the past 12 months, has lack of transportation kept you from medical appointments, getting your medicines, non-medical meetings or appointments, work, or from getting things that you need?: No Received from [facility] Social Connections Interpersonal Safety: Low Risk (02/17/2024) Interpersonal Safety Do you feel physically and emotionally safe where you currently live?: Yes Within the past 12 months, have you been hit, slapped, kicked or otherwise physically hurt by someone?: No Within the past 12 months, have you been humiliated or emotionally abused in other ways by your partner or ex-partner?: No Housing Stability: Low Risk (02/17/2024) Housing Stability Do you have housing? : Yes Are you worried about losing your housing?: No VITALS: BP 119/74 Pulse 72 Temp 97.4 ??F (36.3 ??C) (Oral) Resp 12 Ht 1.778 m (5' 10) Wt 114.8 kg (253 lb 1.6 oz) SpO2 92% BMI 36.32 kg/m?? PHYSICAL EXAM Constitutional: Well developed, Well nourished, NAD, GCS 15 HENT: Normocephalic, Atraumatic, Bilateral external ears normal, Oropharynx normal, mucous membranes moist, Nose normal. Neck- Normal range of motion, No tenderness, Supple, No stridor. Eyes: PERRL, EOMI, Conjunctiva normal, No discharge. Respiratory: Normal breath sounds, Lungs sound clear, No respiratory distress, No wheezing, Speaks full sentences easily. No cough. Cardiovascular: Normal heart rate, Regular rhythm, No murmurs, No rubs, No gallops. Chest wall nontender. GI:Soft, No tenderness, No masses, No flank tenderness. No rebound or guarding. Musculoskeletal: 2+ DP pulses. Bilateral lower extremity edema. No weeping. No cyanosis, No clubbing. Good range of motion in all major joints. No tenderness to palpation or major deformities noted. Integument: Warm, Dry, No erythema, No rash. No petechiae. Neurologic: Alert & oriented x 3, CN 3-12 intact Normal motor function, Normal sensory function, No focal deficits noted. Normal gait. Normal finger to nose bilaterally Psychiatric: Affect normal, Judgment normal, Mood normal. Cooperative. LAB: All pertinent labs reviewed and interpreted. Labs Ordered and Resulted from Time of ED Arrival to Time of ED Departure NT-PROBNP - Abnormal Result Value NT-proBNP 8,393 (*) COMPREHENSIVE METABOLIC PANEL - Abnormal Sodium 135 Potassium 3.3 (*) Carbon Dioxide (CO2) 24 Anion Gap 19 (*) Urea Nitrogen 81.4 (*) Creatinine 2.82 (*) GFR Estimate 22 (*) Calcium 10.3 Chloride 92 (*) Glucose 100 (*) Alkaline Phosphatase 122 AST 27 ALT 21 Protein Total 7.1 Albumin 4.0 Bilirubin Total 0.8 TROPONIN T, HIGH SENSITIVITY - Abnormal Troponin T, High Sensitivity 217 (*) MAGNESIUM - Abnormal Magnesium 2.5 (*) CBC WITH PLATELETS AND DIFFERENTIAL - Abnormal WBC Count 7.6 RBC Count 3.00 (*) Hemoglobin 9.9 (*) Hematocrit 28.6 (*) MCV 95 MCH 33.0 MCHC 34.6 RDW 16.6 (*) Platelet Count 114 (*) % Neutrophils 72 % Lymphocytes 14 % Monocytes 10 % Eosinophils 3 % Basophils 0 % Immature Granulocytes 0 NRBCs per 100 WBC 0 Absolute Neutrophils 5.5 Absolute Lymphocytes 1.1 Absolute Monocytes 0.8 Absolute Eosinophils 0.2 Absolute Basophils 0.0 Absolute Immature Granulocytes 0.0 Absolute NRBCs 0.0 TROPONIN T, HIGH SENSITIVITY - Abnormal Troponin T, High Sensitivity 202 (*) INFLUENZA A/B, RSV AND SARS-COV2 PCR - Normal Influenza A PCR Negative Influenza B PCR Negative RSV PCR Negative SARS CoV2 PCR Negative TSH WITH FREE T4 REFLEX - Normal TSH 2.72 GLUCOSE MONITOR NURSING POCT GLUCOSE MONITOR NURSING POCT ROUTINE UA WITH MICROSCOPIC REFLEX TO CULTURE RESPIRATORY AEROBIC BACTERIAL CULTURE LEGIONELLA URINARY ANTIGEN AND STREPTOCOCCUS PNEUMONIAE ANTIGEN RADIOLOGY: Reviewed all pertinent imaging. Please see official radiology report. Chest XR, PA & LAT Final Result IMPRESSION: Moderately enlarged cardiac silhouette with central pulmonary vascular congestion, diffuse interstitial edema, and small right and trace left pleural effusions, suggesting CHF exacerbation. Bibasilaropacities are favored to reflect atelectasis. No pneumothorax. Aortic atherosclerotic calcifications. Echocardiogram Complete (Results Pending) US Lower Extremity Venous Duplex Bilateral (Results Pending) EKG: Performed at: 07/17/2024 08:40:05 Impression: Atrial fibrillation. Left axis deviation. Right bundle branch block. Inferior infarct (cited on or before 02/16/2024). Rate: 71 BPM Rhythm: A-Fib [place]: -77 MO Interval: * QRS Interval: 188 ms QTc Interval: [address] ST Changes: No ST changed noted. Comparison: When compared with ECG of 02/16/2024 09:18, there is no significant changes found. I have independently reviewed and interpreted the EKG(s) documented above. PROCEDURES: N/A [employer] [facility] Documentation: [facility] Diagnoses: None I, Nidhi Roman, am serving as a scribe to document services personally performed by Dr. Gab Jacob based on my observation and the provider's statements to me. IGab MD attest that Nidhi Roman is acting in a scribe capacity, has observed my performance of the services and has documented them in accordance with my direction. Gab Jacob M.D. Emergency Medicine [facility] EMERGENCY ROOM [address] [place] [id number] Dept: [phone] Gab Jacob MD 07/17/24 1241 * Nallely Beyer RN - 07/17/2024 8:26 AM CDT Pt presents to the ED after being told to come in by his primary 1 week ago for CHF exacerbation and worsening kidney labs. Pt has one kidney. BNP was found to be elevated, worsening SOB, and swelling to legs. Wounds and weeping legs that the wound care nurse takes care of. Triage Assessment (Adult) Row Name 07/17/24 0826 Triage Assessment Airway WDL WDL Respiratory WDL Respiratory WDL X;rhythm/pattern Rhythm/Pattern, Respiratory shortness of breath;dyspnea upon exertion Skin Circulation/Temperature WDL Skin Circulation/Temperature WDL WDL Cardiac WDL Cardiac WDL WDL Peripheral/Neurovascular WDL Peripheral Neurovascular WDL WDL Cognitive/Neuro/Behavioral WDL Cognitive/Neuro/Behavioral WDL WDL documented in this encounter Miscellaneous Notes * Plan of Care - Paola Caruso, PT - 07/20/2024 1:58 PM CDT Physical Therapy and Lymphedema Discharge Summary Reason for therapy discharge: Discharged to home. Progress towards therapy goal(s). See goals on Care Plan in Epic electronic health record for goal details. Goals not met. Barriers to achieving goals: discharge from facility. Therapy recommendation(s): Continue with OP lymphedema and wound care. * Significant Event - Anthony Phillips MD - 07/20/2024 1:55 PM CDT Significant Event Note Time of event: 6:34 PM July 20, 2024 Description of event: After discharge haemophilus influenza sputum sample came back positive. Plan: Sent a prescription for Omnicef 300 daily x5 days to patient's pharmacy. Discussed the nature of haemophilus influenza and recommended that if anyone around the patient is ill they should get checked out. Discussed with: patient via telephone Anthony Phillips MD * Plan of Care - Pinky Brown RN - 07/20/2024 1:47 PM CDT Patient discharging home. Problem: Adult Inpatient Plan of Care Goal: Plan of Care Review Description: The Plan of Care Review/Shift note should be completed every shift. The Outcome Evaluation is a brief statement about your assessment that the patient is improving, declining, or no change. This information will be displayed automatically on your shiftnote. 07/20/2024 1347 by Pinky Brown RN Outcome: Met 07/20/2024 1347 by Pinky Brown RN Outcome: Met Goal: Patient-Specific Goal (Individualized) Description: You can add care plan individualizations to a care plan. Examples of Individualizationmight be: Parent requests to be called daily at 9am for status, I have a hard time hearing out of my right ear, or Do not touch me to wake me up as it startlesme. 07/20/2024 1347 by Pinky Brown RN Outcome: Met 07/20/2024 1347 by Pinky Brown RN Outcome: Met Goal: Absence of Hospital-Acquired Illness or Injury 07/20/2024 1347 by Pinky Brown RN Outcome: Met 07/20/2024 1347 by Pinky Brown RN Outcome: Met Goal: Optimal Comfort and Wellbeing 07/20/2024 1347 by Pinky Brown RN Outcome: Met 07/20/2024 1347 by Pinky Brown RN Outcome: Met Goal: Readiness for Transition of Care Outcome: Met Goal Outcome Evaluation: * Plan of Care - Liliya Lowe RN - 07/20/2024 1:29 AM CDT Problem: Heart Failure Goal: Effective Oxygenation and Ventilation Intervention: Promote Airway Secretion Clearance Recent Flowsheet Documentation Taken 07/20/2024 0038 by Liliya Lowe RN Breathing Techniques/Airway Clearance: deep/controlled cough encouraged Cough And Deep Breathing: done independently per patient Activity Management: activity adjusted per tolerance bedrest Problem: Heart Failure Goal: Optimal Coping Outcome: Progressing Problem: Heart Failure Goal: Optimal Cardiac Output Outcome: Progressing Problem: Heart Failure Goal: Stable Heart Rate and Rhythm Outcome: Progressing Problem: Heart Failure Goal: Fluid and Electrolyte Balance Outcome: Progressing Goal Outcome Evaluation: Pt A/O x4. On RA. Home CPAP during NOC. Pt calls appropriately. Denies pain. Afebrile. A fib on tele; with controled rate. Denies chest pain, dizziness, palpitation, nausea,SOB. Tolerated treatment. Tolerated diet. Voided. No BM; refused stool softener. Passing gas. Gets up and ambulate with assistof 1. Call light with in reach. * Plan of Care - Trevin Baldwin RN - 07/19/2024 12:01 PM CDT Images from the original note were not included. VSS, afebrile. Remains on RA. Tele Afib w/BBB. Walked in [place] today and was in chair for most of the day. Declined bowel meds, passing gas. Diuresing w/external male cath. Goal Outcome Evaluation: Problem: Heart Failure Goal: Optimal Cardiac Output Problem: Heart Failure Goal: Fluid and Electrolyte Balance Heart Failure Care Map GOALS TO BE MET BEFORE DISCHARGE: 1. Decrease congestion and/or edema with diuretic therapy to achieve near optimal volume status. Dyspnea improved: Yes, satisfactory for discharge. Edema improved: No, further care required to meet this goal. Please explain Conntinued diuresis, change to PO bumex. Last 24 hour I/O: Intake/Output Summary (Last 24 hours) at 07/19/2024 1747 Last data filed at 07/19/2024 1700 Gross per 24 hour Intake 2170 ml Output 3550 ml Net -1380 ml Net I/O and Weights since admission: 06/19 2300 - 07/19 2259 In: 3420 [P.O.:3420] Out: 7350 [Urine:7350] Net: -3930 Vitals: 07/17/24 0824 07/18/24 0422 Weight: 114.8 kg (253 lb 1.6 oz) 113.9 kg (251 lb 1.7 oz) 2. O2 sats > 90% on room air, or at prior home O2 therapy level. Able to wean O2 this shift to keep sats above 90%?: Yes, satisfactory for discharge. Does patient use Home O2? No Current oxygenation status: SpO2: 96 % O2 Device: None (Room air), 3. Tolerates ambulation and mobility near baseline. Ambulation: Yes, satisfactory for discharge. Times patient ambulated with staff this shift: 5 Please review the Heart Failure Care Map for additional HF goal outcomes. TREVIN BALDWIN RN 07/19/2024 HL Admission: 4- Move to Chair HLM Daily7-Walk 25 feet or more * Plan of Care - Quin Reddy RN - 07/19/2024 7:00 AM CDT Pt. A/Ox4. VSS on RA. Denies pain. Cardiac diet. 1800 ml fluid restriction. Ax1 with GB and walker.External purewick in place. Denies pain. Tele AFIB with BBB rate controlled. K+ protocol. Recheck at 1102. PIV saline locked to left forearm. Alarms on for safety. Plan of care ongoing. Problem: Adult Inpatient Plan of Care Goal: Optimal Comfort and Wellbeing Outcome: Progressing Intervention: Provide Person-Centered Care Recent Flowsheet Documentation Taken 07/19/2024 0000 by Quin Reddy RN Trust Relationship/Rapport: care explained choices provided emotional support provided empathic listening provided questions answered questions encouraged reassurance provided thoughts/feelings acknowledged Taken 07/18/2024 2144 by Quin Reddy RN Trust Relationship/Rapport: care explained choices provided emotional support provided empathic listening provided questions encouraged questions answered thoughts/feelings acknowledged reassurance provided Problem: Heart Failure Goal: Fluid and Electrolyte Balance Outcome: Progressing Intervention: Monitor and Manage Fluid and Electrolyte Balance Recent Flowsheet Documentation Taken 07/19/2024 0000 by Quin Reddy RN Fluid/Electrolyte Management: fluids provided Taken 07/18/20242143 by Quin Reddy RN Fluid/Electrolyte Management: fluids provided Problem: Heart Failure Goal: Stable Heart Rate and Rhythm Outcome: Progressing * Plan of Care - Trevin Baldwin RN - 07/18/2024 5:41 PM CDT Images from the original note were not included. VSS, afebrile. Tele afib. Remains on RA, 90's%. Denies pain. Diuresing w/external cath in place. Goal Outcome Evaluation: Problem: Heart Failure Goal: Effective Oxygenation and Ventilation Problem: Heart Failure Goal: Effective Breathing Pattern During Sleep Heart Failure Care Map GOALS TO BE MET BEFORE DISCHARGE: 1. Decrease congestion and/or edema with diuretic therapy to achieve near optimal volume status. Dyspnea improved: Yes, satisfactory for discharge. Edema improved: No, further care required to meet this goal. Please explain Still too SOB to amb much. Last 24 hour I/O: Intake/Output Summary (Last 24 hours) at 07/18/2024 1744 Last data filed at 07/18/2024 1700 Gross per 24 hour Intake 1250 ml Output 3650 ml Net -2400 ml Net I/O and Weights since admission: 06/18 2300 - 07/18 2259 In: 1250 [P.O.:1250] Out: 3800 [Urine:3800] Net: -2550 Vitals: 07/17/24 0824 07/18/24 0422 Weight: 114.8 kg (253 lb 1.6 oz) 113.9 kg (251 lb 1.7 oz) 2. O2 sats > 90% on room air, or at prior home O2 therapy level. Able to wean O2 this shift to keep sats above 90%?: Yes, satisfactory for discharge. Does patient use Home O2? No Current oxygenation status: SpO2: 96 % O2 Device: None (Room air), 3. Tolerates ambulation and mobility near baseline. Ambulation: No, further care required to meet this goal. Please explain Up to chair, still too SOB to ambulate most. Times patient ambulated with staff this shift: 1 Please review the Heart Failure Care Map for additional HF goal outcomes. TREVIN BALDWIN RN 07/18/2024 HLM Admission: 5- Standing (1 or more minutes) HLM Daily6- Walk 10 steps or more * Plan of Care - Shaila Blount RN - 07/18/2024 5:08 AM CDT Problem: Heart Failure Goal: Stable Heart Rate and Rhythm Outcome: Progressing Goal Outcome Evaluation: Pt has slept well at intervals. VSS. Afib controlled rate. CPAP through night and tolerating well. UOP purewick with good response from bumex. Following K protocol for K 3.4. Pt following fluid restriction. +1-2 edema to lower extremities with blistering noted to RLE cordoba. Drsg in place to LLE is dry and intact. LE's^ pillows. Pt. Denies pain. Call light in reach to make needs known. * Plan of Care - Eva Rodriguez RN - 07/17/2024 10:47 PM CDT Goal Outcome Evaluation: A&O, VSS on RA, IV bumex administered, some decreased senation in LLE, baseline per pt. Raw ronna folds, purwhick in place. Urine sample sent. Potassium protocols followed. Problem: Adult Inpatient Plan of Care Goal: Optimal Comfort and Wellbeing Outcome: Progressing Intervention: Provide Person-Centered Care Recent Flowsheet Documentation Taken 07/17/2024 1600 by Eva Rodriguez RN Trust Relationship/Rapport: care explained choices provided * Pharmacy-Admission Medication History - LizetOlinda [facility] - 07/17/2024 10:39 AM CDT Pharmacist Admission Medication History Admission medication history is complete. The information provided in this note is only as accurateas the sources available at the time of the update. Medication reconciliation/reorder completed by provider prior to medication history? No Information Source(s): Patient, Family member, and CareEverywhere/SureScripts via in-person Pertinent Information: Bumetanide - patient was taking 4 mg BID for a short period of time up until 1 week ago, when he returned to his standard dose of 3 mg BID. Topical creams - family is present in the room and states the patient's betamethasone cream and desoximetasone cream are in the car; will bring in at some point for identification and patient use. 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 Allergies reviewed with patient and updates made in EHR: yes Medication History Completed By: Olinda Hinds, PharmD, BCPS, DPLA 07/17/2024 10:40 AM Prior to Admission medications Medication Sig Last Dose Taking? Auth Provider Bulk Folder End Date allopurinol (ZYLOPRIM) 100 MG tablet Take 200 mg by mouth daily 07/17/2024 Morning Yes Unknown, Entered By History apixaban ANTICOAGULANT (ELIQUIS ANTICOAGULANT) 2.5 MG tablet Take 1 tablet (2.5 mg) by mouth 2 times daily. 07/17/2024 Morning Yes Anthony Mazariegos MD No betamethasone dipropionate (DIPROSONE) 0.05 % external cream Apply topically daily. 07/17/2024 Yes Reported, Patient bumetanide (BUMEX) 1 MG tablet Take 3 tablets (3 mg) by mouth 2 times daily. 07/16/2024 Evening Yes Anthony Mazariegos MD Yes desoximetasone (TOPICORT) 0.25 % external cream Apply topically 2 times daily as needed. 07/17/2024 Yes Reported, Patient empagliflozin (JARDIANCE) 10 MG TABS tablet TAKE 1 TABLET (10 MG) BY MOUTH DAILY 07/17/2024 Yes Anthony Mazariegos MD Glucosamine-Chondroitin (COSAMIN DS PO) Take 1 tablet by mouth 2 times daily. Cosamin DS 500/400 mg07/17/2024 Morning Yes Reported, Patient metolazone (ZAROXOLYN) 2.5 MG tablet Take 1 tablet (2.5 mg) by mouth twice a week. Take 1 tablet twice weekly prn/as needed for weight gain/increasing edema 07/14/2024 Yes Anthony Mazariegos MD Yes potassium chloride brett ER (KLOR-CON M20) 20 MEQ CR tablet Take 1 tablet (20 mEq) by mouth 2 times daily. 07/17/2024 Morning Yes Yangzom, Valentine, FAMILY DEVELOPMENT SPECIALIST INFECTION CONTROL NURSE tamsulosin (FLOMAX) 0.4 MG capsule Take 0.4 mg by mouth daily 07/17/2024 Morning Yes Unknown, Entered By History documented in this encounter Plan of Treatment Upcoming Encounters Date Type Department Care Team (Latest Contact Info) Description 09/30/2024 7:30 AM CDT Appointment [address] [phone] Roman Krishnamurthy MD [address] [facility] [address] [place], [place] [id number] 09/30/2024 10:30 AM CDT Hospital Encounter [address] [phone] Reese Lazaro MD [address] [place] [address] Other ill-defined heart diseases 09/30/2024 10:30 AM CDT - 09/30/2024 12:30 PM CDT Surgery [address] [phone] Reese Lazaro MD [address] [place] [id number] Coronary Angiogram Scheduled Orders Name Type Priority Associated Diagnoses Orde r Schedule NM Lexiscan stress test Cardiac Nuclear Medicine Routine One time imaging for 1 Occurrences starting 07/18/2024 until 07/18/2024 Scheduled Procedures Name Priority Associated Diagnoses Date/Ti me Percutaneous Coronary Intervention Other ill-defined heart diseases 09/30/2024 10:30 AM CDT Scheduled Referrals Name Type Priority Associated Diagnoses Orde r Schedule Adult Nephrology Bridge Manager Referral Referral Routine: Next available opening Stage 3b chronic kidney disease (H) Expected: 08/20/2024 (Approximate), Expires: 07/20/2025 Follow-Up with Cardiology MARK ANTHONY Heart Failure Discharge Referral Urgent: 3-5 Days Chronic heart failure with preserved ejection fraction (H) Expected: 08/03/2024 (Approximate), Expires: 07/20/2025 Physical Therapy Bridge Manager Referral Referral Routine Edema, unspecified type Expected: 07/20/2024 (Approximate), Expires: 07/20/2025 documented as of this encounter Procedures Procedure Name Priority Date/Time Associated Diagnosis Comments POTASSIUM Timed 07/20/2024 12:17 PM CDT GLUCOSE BY METER Routine 07/20/2024 12:1 3 PM CDT GLUCOSE BY METER Routine 07/20/2024 7:21 AM CDT MAGNESIUM Routine 07/20/2024 5:35 AM CDT BASIC METABOLIC PANEL Routine 07/20/2024 5:35 AM CDT CBC WITH PLATELETS Routine 07/20/2024 5: 35 AM CDT GLUCOSE BY METER Routine 07/19/2024 9:12 PM CDT GLUCOSE BY METER Routine 07/19/2024 4:59 PM CDT POTASSIUM Timed 07/19/2024 4:55 PM CDT GLUCOSE BY METER Routine 07/19/2024 12:0 3 PM CDT POTASSIUM Timed 07/19/2024 11:16 AM CDT GLUCOSE BY METER Routine 07/19/2024 7:18 AM CDT VITAMIN D DEFICIENCY SCREENING Routine 07/19/2024 5:31 AM CDT PHOSPHORUS Routine 07/19/2024 5:31 AM CDT PARATHYROID HORMONE INTACT Routine 07/19/2024 5:31 AM CDT MAGNESIUM Routine 07/19/2024 5:31 AM CDT BASIC METABOLIC PANEL Routine 07/19/2024 5:31 AM CDT CBC WITH PLATELETS Routine 07/19/2024 5: 31 AM CDT GLUCOSE BY METER Routine 07/19/2024 2:10 AM CDT GLUCOSE BY METER Routine 07/18/2024 9:14 PM CDT POTASSIUM Timed 07/18/2024 6:04 PM CDT GLUCOSE BY METER Routine 07/18/2024 4:58 PM CDT RESPIRATORY AEROBIC BACTERIAL CULTURE STAT 07/18/2024 11:55 AM CDT GLUCOSE BY METER Routine 07/18/2024 11:2 2 AM CDT POTASSIUM Timed 07/18/2024 8:55 AM CDT GLUCOSE BY METER Routine 07/18/2024 7:24 AM CDT POTASSIUM Timed 07/18/2024 2:54 AM CDT MAGNESIUM Add-On 07/18/2024 2:54 AM CDT HEPATIC FUNCTION PANEL Routine 2:54 AM CDT BASIC METABOLIC PANEL Routine 07/18/2024 2:54 AM CDT CBC WITH PLATELETS Routine 07/18/2024 2: 54 AM CDT LEGIONELLA URINARY ANTIGEN AND STREPTOCOCCUS PNEUMONIAE ANTIGEN STAT 07/17/2024 10:24 PM CDT ROUTINE UA WITH MICROSCOPIC REFLEX TO CULTURE STAT 07/17/2024 10:24 PM CDT UREA NITROGEN RANDOM URINE Add-On 07/17/2024 10:24 PM CDT SODIUM RANDOM URINE Add-On 07/17/2024 1 0:24 PM CDT GLUCOSE BY METER Routine 07/17/2024 9:32 PM CDT POTASSIUM Timed 07/17/2024 8:28 PM CDT GLUCOSE BY METER Routine 07/17/2024 4:46 PM CDT ECHO COMPLETE Routine 07/17/2024 3:03 PM CDT POTASSIUM STAT 07/17/2024 2:50 PM CDT US LOWER EXTREMITY VENOUS DUPLEX BILATERAL Routine 07/17/2024 1:07 PM CDT INFLUENZA A/B, RSV AND SARS-COV2 PCR STAT 07/17/2024 10:40 AM CDT TROPONIN T, HIGH SENSITIVITY STAT 07/17/2024 10:40 AM CDT TSH WITH FREE T4 REFLEX Add-On 07/17/2024 10:40 AM CDT XR CHEST 2 VIEWS STAT 07/17/2024 9:14 AM CDT EXTRA TUBE STAT 07/17/2024 8:51 AM CDT EXTRA GREEN TOP (LITHIUM HEPARIN) TUBE STAT 07/17/2024 8:51 AM CDT CBC WITH PLATELETS AND DIFFERENTIAL STAT 07/17/2024 8:51 AM CDT TROPONIN T, HIGH SENSITIVITY STAT 07/17/2024 8:51 AM CDT CBC WITH PLATELETS & DIFFERENTIAL STAT 07/17/2024 8:51 AM CDT NT-PROBNP STAT 07/17/2024 8:51 AM CDT MAGNESIUM STAT 07/17/2024 8:51 AM CDT COMPREHENSIVE METABOLIC PANEL STAT 07/17/2024 8:51 AM CDT ECG 12-LEAD WITH MUSE [facility] STAT 07/17/2024 8:40 AM CDT documented in this encounter Results * (ABNORMAL) Potassium (07/20/2024 12:17 PM CDT) [facility] Potassium 3.2(L) 3.4 - 5.3 mmol/L 07/20/2024 12:32 PM CDT [facility] Blood BLOOD SPECIMEN / Unknown Venipuncture / Unknown 07/20/2024 12:17 PM CDT 07/20/2024 12:20 PM CDT us Oksana Cole MD LAB - BLOOD ORDERABLES Final Re sult Performing Organization Address City/[facility]/ZIP Co de Phone Number [facility] [address] [place], [place] [phone] [place] [address] * (ABNORMAL) Glucose by meter (07/20/2024 12:13 PM CDT) [facility] GLUCOSE BY METER POCT 129(H) 70 - 99 mg/dL 07/20/2024 12:20 PM CDT [facility] POCT RESULTS Blood, Capillary BLOOD SPECIMEN / Unknown 07/20/2024 12:13 PM CDT 07/20/2024 12:20 PM CDT us Oksana Cole MD LAB - BEAKER POCT Final Result Performing Organization Address City/[facility]/ZIP Co de Phone Number [facility] POCT RESULTS [address] [place] [address] * (ABNORMAL) Glucose by meter (07/20/2024 7:21 AM CDT) [facility] GLUCOSE BY METER POCT 102(H) 70 - 99 mg/dL 07/20/2024 7:29 AM CDT [facility] POCT RESULTS Blood, Capillary BLOOD SPECIMEN / Unknown 07/20/2024 7:21 AM CDT 07/20/2024 7:29 AM CDT us Oksana Cole MD LAB - BEAKER POCT Final Result Performing Organization Address City/[facility]/ZIP Co de Phone Number [facility] POCT RESULTS [address] [place] [address] * Magnesium (07/20/2024 5:35 AM CDT) [facility] Magnesium 2.3 1.7 - 2.3 mg/dL 07/20/2024 6:08 AM CDT [facility] Blood BLOOD SPECIMEN / Unknown Venipuncture / Unknown 07/20/2024 5:35 AM CDT 07/20/2024 5:45 AM CDT Chantal Magaña MD LAB - BLOOD ORDERABLES Final Res ult Performing Organization Address City/[facility]/ZIP Co de Phone Number [facility] [address] [facility] [place], [place] [phone] [place] [address] * (ABNORMAL) CBC with platelets (07/20/2024 5:35 AM CDT) [facility] WBC Count 7.9 4.0 - 11.0 10e3/uL 07/20/2024 5:50 AM CDT [facility] RBC Count 2.93(L) 4.40 - 5.90 10e6/uL 07/20/2024 5:50 AM CDT [facility] Hemoglobin 9.5(L) 13.3 - 17.7 g/dL 07/20/2024 5:50 AM CDT [facility] Hematocrit 28.1(L) 40.0 - 53.0 % 07/20/2024 5:50 AM CDT [facility] MCV 96 78 - 100 fL 07/20/2024 5:50 AM CDT [facility] MCH 32.4 26.5 - 33.0 pg 07/20/2024 5:50 AM CDT [facility] MCHC 33.8 31.5 - 36.5 g/dL 07/20/2024 5:50 AM [facility] RDW 16.3(H) 10.0 - 15.0 % 07/20/2024 5:50 AM [facility] Platelet Count 107(L) 150 - 450 10e3/uL 07/20/2024 5:50 AM [facility] Blood BLOOD SPECIMEN / Unknown Venipuncture / Unknown 07/20/2024 5:35 AM CDT 07/20/2024 5:45 AM CDT us Chantal Magaña MD LAB - BLOOD ORDERABLES Final Res ult [facility] [address] [facility] [address] * (ABNORMAL) Basic metabolic panel (07/20/2024 5:35 AM CDT) Sodium 136 135 - 145 mmol/L 07/20/2024 6:08 AM [facility] Potassium 3.1(L) 3.4 - 5.3 mmol/L 07/20/2024 6:08 AM [facility] Chloride 91(L) 98 - 107 mmol/L 07/20/2024 6:08 AM [facility] Carbon Dioxide (CO2) 29 22 - 29 mmol/L 07/20/2024 6:08 AM [facility] Anion Gap 16(H) 7 - 15 mmol/L 07/20/2024 6:08 AM [facility] Urea Nitrogen 85.3(H) 8.0 - 23.0 mg/dL 07/20/2024 6:08 AM [facility] Creatinine 2.92(H) 0.67 - 1.17 mg/dL 07/20/2024 6:08 AM [facility] GFR Estimate 21(L) >60 mL/min/1.7 3m2 07/20/2024 6:08 AM CDT [facility] Comment:eGFR calculated us2020 CKD-EPI equation. Calcium 10.6(H) 8.8 - 10.4 mg/dL 07/20/2024 6:08 AM CDT [facility] Glucose 103(H) 70 - 99 mg/dL 07/20/2024 6:08 AM CDT [facility] Blood BLOOD SPECIMEN / Unknown Venipuncture / Unknown 07/20/2024 5:35 AM CDT 07/20/2024 5:45 AM CDT Chantal Magaña MD LAB - BLOOD ORDERABLES Final Res ult Performing Organization Address City/[facility]/ZIP Co de Phone Number [facility] [address] [facility] [place], [place] [phone] [place] [address] * (ABNORMAL) Glucose by meter (07/19/2024 9:12 PM CDT) GLUCOSE BY METER POCT 142(H) 70 - 99 mg/dL 07/19/2024 9:20 PM T [facility] POCT RESULTS Blood, Capillary BLOOD SPECIMEN / Unknown 07/19/2024 9:12 PM CDT 07/19/2024 9:20 PM CDT Felix HANDLEY - GABRIELLE POCT Final Result Performing Organization Address [facility]/ZIP Co de Phone Number [facility] POCT RESULTS [address] [place] [address] * (ABNORMAL) Glucose by meter (07/19/2024 4:59 PM CDT) GLUCOSE BY METER POCT 130(H) 70 - 99 mg/dL 07/19/2024 5:06 PM T [facility] POCT RESULTS Blood, Capillary BLOOD SPECIMEN / Unknown 07/19/2024 4:59 PM CDT 07/19/2024 5:06 PM CDT Felix HANDLEY - GABRIELLE POCT Final Result Performing Organization Address City/[facility]/ZIP Co de Phone Number [facility] POCT RESULTS [address] [place] [address] * Potassium (07/19/2024 4:55 PM CDT) Potassium 3.5 3.4 - 5.3 mmol/L 07/19/2024 5:37 PM CDT [facility] Blood BLOOD SPECIMEN / Unknown Venipuncture / Unknown 07/19/2024 4:55 PM CDT 07/19/2024 5:00 PM CDT Felix Balderas MD LAB - BLOOD ORDERABLES Final Res ult [facility] [address] [facility] [place] [address], [facility] * (ABNORMAL) Glucose by meter (07/19/2024 12:03 PM CDT) [facility] GLUCOSE BY METER POCT 116(H) 70 - 99 mg/dL 07/19/2024 12:17 PM CDT [facility] POCT RESULTS Blood, Capillary BLOOD SPECIMEN / Unknown 07/19/2024 12:03 PM CDT 07/19/2024 12:17 PM CDT Felix Balderas MD LAB - BEAKER POCT Final Result Performing Organization Address City/[facility]/ZIP Co de Phone Number [facility] POCT RESULTS [address] [place] [address] * Potassium (07/19/2024 11:16 AM CDT) Potassium 3.4 3.4 - 5.3 mmol/L 07/19/2024 11:49 AM CDT [facility] Blood BLOOD SPECIMEN / Unknown Venipuncture / Unknown 07/19/2024 11:16 AM CDT 07/19/2024 11:37 AM CDT Chantal Magaña MD LAB - BLOOD ORDERABLES Final Res ult [facility] [address] [place] [address], [facility] * (ABNORMAL) Glucose by meter (07/19/2024 7:18 AM CDT) GLUCOSE BY METER POCT 104(H) 70 - 99 mg/dL 07/19/2024 7:25 AM CDT [facility] POCT RESULTS Blood, Capillary BLOOD SPECIMEN / Unknown 07/19/2024 7:18 AM CDT 07/19/2024 7:25 AM CDT us Felix Balderas MD LAB - BEAKER POCT Final Result Performing Organization Address [facility]/ZIP Co de Phone Number [facility] POCT RESULTS [address] [place] [address] * (ABNORMAL) Magnesium (07/19/2024 5:31 AM CDT) [facility] Magnesium 2.4(H) 1.7 - 2.3 mg/dL 07/19/2024 6:00 AM CDT [facility] Blood BLOOD SPECIMEN / Unknown Venipuncture / Unknown 07/19/2024 5:31 AM CDT 07/19/2024 5:37 AM CDT us Chantal Magaña MD LAB - BLOOD ORDERABLES Final Res ult [facility] [address] [place] [address], [facility] * (ABNORMAL) CBC with platelets (07/19/2024 5:31 AM CDT) WBC Count 7.5 4.0 - 11.0 10e3/uL 07/19/2024 5:42 AM CDT [facility] RBC Count 3.00(L) 4.40 - 5.90 10e6/uL 07/19/2024 5:42 AM CDT [facility] Hemoglobin 9.7(L) 13.3 - 17.7 g/dL 07/19/2024 5:42 AM CDT [facility] Hematocrit 29.6(L) 40.0 - 53.0 % 07/19/2024 5:42 AM [facility] MCV 99 78 - 100 fL 07/19/2024 5:42 AM [facility] MCH 32.3 26.5 - 33.0 pg 07/19/2024 5:42 AM [facility] MCHC 32.8 31.5 - 36.5 g/dL 07/19/2024 5:42 AM [facility] RDW 16.4(H) 10.0 - 15.0 % 07/19/2024 5:42 AM [facility] Platelet Count 113(L) 150 - 450 10e3/uL 07/19/2024 5:42 AM [facility] Blood BLOOD SPECIMEN / Unknown Venipuncture / Unknown 07/19/2024 5:31 AM CDT 07/19/2024 5:37 AM CDT us Chantal Magaña MD LAB - BLOOD ORDERABLES Final Res ult [facility] [address] [facility] [address] * (ABNORMAL) Basic metabolic panel (07/19/2024 5:31 AM CDT) Sodium 137 135 - 145 mmol/L 07/19/2024 6:00 AM [facility] Potassium 3.3(L) 3.4 - 5.3 mmol/L 07/19/2024 6:00 AM [facility] Chloride 93(L) 98 - 107 mmol/L 07/19/2024 6:00 AM [facility] Carbon Dioxide (CO2) 29 22 - 29 mmol/L 07/19/2024 6:00 AM [facility] Anion Gap 15 7 - 15 mmol/L 07/19/2024 6:00 AM [facility] Urea Nitrogen 82.6(H) 8.0 - 23.0 mg/dL 07/19/2024 6:00 AM [facility] Creatinine 2.71(H) 0.67 - 1.17 mg/dL 07/19/2024 6:00 AM [facility] GFR Estimate 23(L) >60 mL/min/1.7 3m2 07/19/2024 6:00 AM CDT [facility] Comment:eGFR calculated 2020 CKD-EPI equation. Calcium 10.6(H) 8.8 - 10.4 mg/dL 07/19/2024 6:00 AM CDT [facility] Glucose 102(H) 70 - 99 mg/dL 07/19/2024 6:00 AM CDT [facility] Blood BLOOD SPECIMEN / Unknown Venipuncture / Unknown 07/19/2024 5:31 AM CDT 07/19/2024 5:37 AM CDT Chantal Magaña MD LAB - BLOOD ORDERABLES Final Res ult [facility] [address] [place] [address], [facility] * Vitamin D Deficiency (07/19/2024 5:31 AM CDT) [facility] Vitamin D, Total (25-Hydroxy) 29 20 - 50 ng/mL 07/19/2024 9:46 AM CDT LABORATORY Comment:optimum levels Blood BLOOD SPECIMEN / Unknown Venipuncture / Unknown 07/19/2024 5:31 AM CDT 07/19/2024 5:37 AM CDT Narrative [facility] LABORAT[facility] - 07/19/2024 9:46 AM CDT Season, race, dietary intake, and treatment affect the concentration of 77-qsmjarq-Dxujgxb D. Values may decrease during winter months and increase during summer months. Vitamin D determination is routinely performed by an immunoassay specific for 25 hydroxyvitamin D3. If an individual is on vitamin D2(ergocalciferol) supplementation, please specify 25 OH vitamin D2 and D3 level determination by LCMSMS test VITD23. Chantal Magaña MD LAB - BLOOD ORDERABLES Final Res ult LABORATORY [facility] [address] [facility] [address] [place] [address], [facility] * (ABNORMAL) Phosphorus (07/19/2024 5:31 AM CDT) Phosphorus 4.9(H) 2.5 - 4.5 mg/dL 07/19/2024 6:00 AM CDT [facility] Blood BLOOD SPECIMEN / Unknown Venipuncture / Unknown 07/19/2024 5:31 AM CDT 07/19/2024 5:37 AM CDT Chantal Magaña MD LAB - BLOOD ORDERABLES Final Res ult [facility] [address] [facility] [place] [address], [facility] * (ABNORMAL) Parathyroid Hormone Intact (07/19/2024 5:31 AM CDT) Pathologist [facility] Parathyroid Hormone Intact 210(H) 15 - 65 pg/mL 07/19/2024 9:33 AM CDT LABORATORY Blood BLOOD SPECIMEN / Unknown Venipuncture / Unknown 07/19/2024 5:31 AM CDT 07/19/2024 5:37 AM CDT Narrative [facility] - 07/19/2024 9:33 AM CDT This result was obtained with the [employer] PTH STAT assay. This reference range differs from PTH assays used in other [facility] laboratories. Chantal Magaña MD LAB - BLOOD ORDERABLES Final Res ult LABORATORY [facility] [address] [facility] [address] [facility], [address] [place] [address], [facility] * (ABNORMAL) Glucose by meter (07/19/2024 2:10 AM CDT) GLUCOSE BY METER POCT 112(H) 70 - 99 mg/dL 07/19/2024 2:16 AM CDT [facility] POCT RESULTS Blood, Capillary BLOOD SPECIMEN / Unknown 07/19/2024 2:10 AM CDT 07/19/2024 2:16 AM CDT Chantal Magaña MD LAB - BANNER POCT Final Result Performing Organization Address [facility]/ZIP Co de Phone Number [facility] POCT RESULTS [address] [place] [address] * (ABNORMAL) Glucose by meter (07/18/2024 9:14 PM CDT) GLUCOSE BY METER POCT 114(H) 70 - 99 mg/dL 07/18/2024 9:21 PM CDT [facility] POCT RESULTS Blood, Capillary BLOOD SPECIMEN / Unknown 07/18/2024 9:14 PM CDT 07/18/2024 9:21 PM CDT us Chantal Magaña MD LAB - BANNER POCT Final Result Performing Organization Address [facility] Co de Phone Number [facility] POCT RESULTS [address] [place] [address] * Potassium (07/18/2024 6:04 PM CDT) Potassium 3.6 3.4 - 5.3 mmol/L 07/18/2024 6:22 PM CDT [facility] Blood STRUCTURE OF LEFT HAND / Unknown Venipuncture / Unknown 07/18/2024 6:04 PM CDT 07/18/2024 6:06 PM CDT us Bari Hudson MD LAB - BLOOD ORDERABLES Final R esult Performing Organization Address City/[facility]/ZIP Co de Phone Number [facility] [address] [facility] [place] [address], [facility] * (ABNORMAL) Glucose by meter (07/18/2024 4:58 PM CDT) GLUCOSE BY METER POCT 108(H) 70 - 99 mg/dL 07/18/2024 5:05 PM CDT [facility] POCT RESULTS Blood, Capillary BLOOD SPECIMEN / Unknown 07/18/2024 4:58 PM CDT 07/18/2024 5:05 PM CDT us Chantal Magaña MD LAB - BEAKER POCT Final Result [facility] POCT RESULTS [address] [place] [address] * (ABNORMAL) Respiratory Aerobic Bacterial Culture with Gram Stain (07/18/2024 11:55 AM CDT) Culture 1+ Haemophilus influenzae(A) 07/20/2024 1:18 PM CDT [facility] Culture 2+ Normal tana 1:18 PM CDT [facility] Gram Stain Result <10 Squamous epithelial cells/low power field 07/20/2024 1:18 PM CDT [facility] Gram Stain Result >25 PMNs/low power field 07/20/2024 1:18 PM CDT [facility] Gram Stain Result 3+ Mixed tana 07/20/2024 1:18 PM CDT [facility] Sputum SPUTUM / Unknown Non-blood Collection / Unknown 07/18/2024 11:55 AM CDT 07/18/2024 11:58 AM CDT Narrative Organism Antibiotic Method Susceptibility Haemophilus influenzae Nitrocefin FAB Negative Comment: Beta-lactamase negative Beta-lactamase negative Haemophilus influenzae are usually susceptible to ampicillin, amox/clavulanic acid, levofloxacin, and 3rd generation cephalosporins, such as ceftriaxone. us Chantal Magaña MD LAB - MICRO GENERAL ORDERABLES F inal Result [facility] Inf. Diseases Diag. Lab [address], [address] [place] [address], [facility] * (ABNORMAL) Glucose by meter (07/18/2024 11:22 AM CDT) GLUCOSE BY METER POCT 132(H) 70 - 99 mg/dL 07/18/2024 11:29 AM CDT [facility] POCT RESULTS Blood, Capillary BLOOD SPECIMEN / Unknown 07/18/2024 11:22 AM CDT 07/18/2024 11:29 AM CDT Chantal Magaña MD LAB - BEAKER POCT Final Result Performing Organization Address [facility] Co de Phone Number [facility] POCT RESULTS [address] [place] [address] * Potassium (07/18/2024 8:55 AM CDT) Potassium 3.4 3.4 - 5.3 mmol/L 07/18/2024 9:10 AM CDT [facility] Blood BLOOD SPECIMEN / Unknown Venipuncture / Unknown 07/18/2024 8:55 AM CDT 07/18/2024 8:57 AM CDT Chantal Magaña MD LAB - BLOOD ORDERABLES Final Res ult Performing Organization Address [facility] Co de Phone Number [facility] Lab [address] [facility] [place] [address], [facility] * (ABNORMAL) Glucose by meter (07/18/2024 7:24 AM CDT) GLUCOSE BY METER POCT 122(H) 70 - 99 mg/dL 07/18/2024 7:31 AM CDT [facility] POCT RESULTS Blood, Capillary BLOOD SPECIMEN / Unknown 07/18/2024 7:24 AM CDT 07/18/2024 7:31 AM CDT Chantal Magaña MD LAB - BEAKER POCT Final Result Performing Organization Address [facility]/ZIP Co de Phone Number [facility] POCT RESULTS [address] [place] [address] * (ABNORMAL) Magnesium (07/18/2024 2:54 AM CDT) Magnesium 2.5(H) 1.7 - 2.3 mg/dL 07/18/2024 8:00 AM CDT [facility] Blood BLOOD SPECIMEN / Unknown Venipuncture / Unknown 07/18/2024 2:54 AM CDT 07/18/2024 3:18 AM CDT Chantal Magaña MD LAB - BLOOD ORDERABLES Final Res ult Performing Organization Address City/[facility]/ZIP Co de Phone Number [facility] Lab [address] [place] [address], [facility] * (ABNORMAL) CBC with platelets (07/18/2024 2:54 AM CDT) [facility] WBC Count 7.7 4.0 - 11.0 10e3/uL 07/18/2024 3:20 AM CDT [facility] RBC Count 2.90(L) 4.40 - 5.90 10e6/uL 07/18/2024 3:20 AM CDT [facility] Hemoglobin 9.3(L) 13.3 - 17.7 g/dL 07/18/2024 3:20 AM CDT [facility] Hematocrit 27.8(L) 40.0 - 53.0 % 07/18/2024 3:20 AM CDT [facility] MCV 96 78 - 100 fL 07/18/2024 3:20 AM CDT [facility] MCH 32.1 26.5 - 33.0 pg 07/18/2024 3:20 AM CDT [facility] MCHC 33.5 31.5 - 36.5 g/dL 07/18/2024 3:20 AM CDT [facility] RDW 16.3(H) 10.0 - 15.0 % 07/18/2024 3:20 AM CDT [facility] Platelet Count 109(L) 150 - 450 10e3/uL 07/18/2024 3:20 AM CDT [facility] Blood BLOOD SPECIMEN / Unknown Venipuncture / Unknown 07/18/2024 2:54 AM CDT 07/18/2024 3:18 AM CDT Chantal Magaña MD LAB - BLOOD ORDERABLES Final Res ult [facility] [address] [place] [address], [place] * (ABNORMAL) Basic metabolic panel (07/18/2024 2:54 AM CDT) Sodium 136 135 - 145 mmol/L 07/18/2024 3:38 AM CDT [facility] Potassium 3.4 3.4 - 5.3 mmol/L 07/18/2024 3:38 AM T [facility] Chloride 94(L) 98 - 107 mmol/L 07/18/2024 3:38 AM CDT [facility] Carbon Dioxide (CO2) 28 22 - 29 mmol/L 07/18/2024 3:38 AM T [facility] Anion Gap 14 7 - 15 mmol/L 07/18/2024 3:38 AM T [facility] Urea Nitrogen 85.1(H) 8.0 - 23.0 mg/dL 07/18/2024 3:38 AM T [facility] Creatinine 2.81(H) 0.67 - 1.17 mg/dL 07/18/2024 3:38 AM T [facility] GFR Estimate 22(L) >60 mL/min/1.7 3m2 07/18/2024 3:38 AM T [facility] Comment:eGFR calculated usin 2020 CKD-EPI equation. Calcium 10.5(H) 8.8 - 10.4 mg/dL 07/18/2024 3:38 AM T [facility] Glucose 103(H) 70 - 99 mg/dL 07/18/2024 3:38 AM T [facility] Blood BLOOD SPECIMEN / Unknown Venipuncture / Unknown 07/18/2024 2:54 AM CDT 07/18/2024 3:18 AM CDT us Chantal Magaña MD LAB - BLOOD ORDERABLES Final Res ult [facility] [address] [place] [address], [facility] * Potassium (07/18/2024 2:54 AM CDT) Potassium 3.4 3.4 - 5.3 mmol/L 07/18/2024 3:38 AM T [facility] Blood BLOOD SPECIMEN / Unknown Venipuncture / Unknown 07/18/2024 2:54 AM CDT 07/18/2024 3:18 AM CDT Chantal Magaña MD LAB - BLOOD ORDERABLES Final Res ult Performing Organization Address [facility]/ZIP Co de Phone Number [facility] [address] [place] [address], [facility] * Hepatic panel (07/18/2024 2:54 AM CDT) Protein Total 6.7 6.4 - 8.3 g/dL 07/18/2024 3:38 AM CDT [facility] Albumin 3.6 3.5 - 5.2 g/dL 07/18/2024 3:38 AM CDT [facility] Bilirubin Total 0.8 <=1.2 mg/dL 07/18/2024 3:38 AM CDT [facility] Alkaline Phosphatase 113 40 - 150 U/L 07/18/2024 3:38 AM CDT [facility] AST 23 0 - 45 U/L 07/18/2024 3:38 AM CDT [facility] ALT 20 0 - 70 U/L 07/18/2024 3:38 AM CDT [facility] Bilirubin Direct 0.41 0.00 - 0.45 mg/dL 07/18/2024 3:38 AM CDT [facility] Comment:As of 24, refer ence ranges and trending lines may vary depending on the testing location. Blood BLOOD SPECIMEN / Unknown Venipuncture / Unknown 07/18/2024 2:54 AM CDT 07/18/2024 3:18 AM CDT Chantal Magaña MD LAB - BLOOD ORDERABLES Final Res ult Performing Organization Address [facility]/ZIP Co de Phone Number [facility] [address] [facility] [address] [place] [address], [facility] * (ABNORMAL) Urea nitrogen random urine with Creat Ratio (07/17/2024 10:24 PM CDT) Urea Nitrogen Urine mg/dL 262.0(L) 801.0 - 1,666.0 mg/dL 07/18/2024 12:36 PM CDT [facility] Urine URINE SPECIMEN OBTAINED BY CLEAN CATCH PROCEDURE / Unknown Non-blood Collection / Unknown 07/17/2024 10:24 PM CDT 07/17/2024 10:31 PM CDT hCantal Magaña MD LAB - URINE ORDERABLES Final Res ult [facility] [place] [facility] [address] [facility], [address] [place] [address], [facility] * Sodium random urine (07/17/2024 10:24 PM CDT) Sodium Urine mmol/L 85 mmol/L 07/18/2024 7:56 AM CDT [facility] Comment:The reference ranges have not been established in urine sodium. The results should be integrated into the clinical context for interpretation. Urine URINE SPECIMEN OBTAINED BY CLEAN CATCH PROCEDURE / Unknown Non-blood Collection / Unknown 07/17/2024 10:24 PM CDT 07/17/2024 10:31 PM CDT Chantal Magaña MD LAB - URINE ORDERABLES Final Res ult [facility] [address] [place] [address], [facility] * (ABNORMAL) UA with Microscopic reflex to Culture (07/17/2024 10:24 PM CDT) Color Urine Colorless Colorless, Straw, Light Yellow, Yellow 07/17/2024 10:36 PM CDT [facility] Appearance Urine Clear Clear 07/18/19 25 10:36 PM CDT [facility] Glucose Urine Negative Negative mg/dL 07/17/2024 10:36 PM CDT [facility] Bilirubin Urine Negative Negative 5 10:36 PM CDT [facility] Ketones Urine Negative Negative mg/dL 07/17/2024 10:36 PM CDT [facility] Specific [place] Urine 1.008 1.001 - 1.030 07/17/2024 10:36 PM CDT [facility] Blood Urine Negative Negative 07/17/2024 10:36 PM CDT [facility] pH Urine 6.5 5.0 - 7.0 07/17/2024 10:36 PM CDT [facility] Protein Albumin Urine Negative Negative mg/dL 07/17/2024 10:36 PM CDT [facility] Urobilinogen Urine Normal Normal mg/dL 07/17/2024 10:36 PM CDT [facility] Nitrite Urine Negative Negative 07/17/2024 10:36 PM CDT [facility] Leukocyte Esterase Urine Negative Negative 07/17/2024 10:36 PM CDT [facility] Mucus Urine Present(A) None Seen /LPF 07/17/2024 10:36 PM CDT [facility] RBC Urine 0 <=2 /HPF 07/17/2024 10:36 PM CDT [facility] WBC Urine 0 <=5 /HPF 07/17/2024 10:36 PM CDT [facility] Urine URINE SPECIMEN OBTAINED BY CLEAN CATCH PROCEDURE / Unknown Non-blood Collection / Unknown 07/17/2024 10:24 PM CDT 07/17/2024 10:31 PM CDT Narrative [facility] - 07/17/2024 10:36 PM CDT Urine Culture not indicated us Chantal Magaña MD LAB - URINE ORDERABLES Final Res ult [facility] [address] [place] [address], [facility] * Legionella Urinary Antigen and Streptococcus pneumoniae antigen (07/17/2024 10:24 PM CDT) Legionella pneumophila serogroup 1 urinary antigen Negative Negative FAB 07/18/2024 12:40 AM CDT [facility] Comment:A negative result do es not exclude the possibility of a Legionella infection, as it can be caused by other serogroups and species of Legionella. Streptococcus pneumoniae antigen Negative Negative FAB 07/18/2024 12:40 AM CDT [facility] Comment:A negative result do es not exclude a Streptococcus pneumoniae infection. Legionella pneumophila Urinary/Strep pneumoniae Antigen Specimen Type Urine 07/18/2024 12:40 AM CDT [facility] Urine URINE SPECIMEN OBTAINED BY CLEAN CATCH PROCEDURE / Unknown Non-blood Collection / Unknown 07/17/2024 10:24 PM CDT 07/17/2024 10:31 PM CDT Narrative [facility] - 07/18/2024 12:40 AM CDT The result of this test as well as culture, serology, or other antigen detection methods should be used in conjunction with clinical findings to make an accurate diagnosis. Chantal Magaña MD LAB - MICRO GENERAL ORDERABLES F inal Result [facility] Inf. Diseases Diag. Lab [address] [place] [address] * (ABNORMAL) Glucose by meter (07/17/2024 9:32 PM CDT) GLUCOSE BY METER POCT 113(H) 70 - 99 mg/dL 07/17/2024 9:42 PM CDT [facility] POCT RESULTS Blood, Capillary BLOOD SPECIMEN / Unknown 07/17/2024 9:32 PM CDT 07/17/2024 9:42 PM CDT Chantal Magaña MD LAB - BEAKER POCT Final Result [facility] POCT RESULTS [address] [place] [address] * (ABNORMAL) Potassium (07/17/2024 8:28 PM CDT) Potassium 3.3(L) 3.4 - 5.3 mmol/L 07/17/2024 8:44 PM CDT [facility] Blood STRUCTURE OF RIGHT HAND / Unknown Venipuncture / Unknown 07/17/2024 8:28 PM CDT 07/17/2024 8:30 PM CDT Chantal Magaña MD LAB - BLOOD ORDERABLES Final Res ult [facility] [address] [facility] [place] [address], [facility] * (ABNORMAL) Glucose by meter (07/17/2024 4:46 PM CDT) GLUCOSE BY METER POCT 136(H) 70 - 99 mg/dL 07/17/2024 4:53 PM CDT [facility] POCT RESULTS Blood, Capillary BLOOD SPECIMEN / Unknown 07/17/2024 4:46 PM CDT 07/17/2024 4:53 PM CDT Chantal Magaña MD LAB - BEAKER POCT Final Result Performing Organization Address City/[facility]/ZIP Co de Phone Number [facility] POCT RESULTS [address] [place] [address] * ECHO COMPLETE (07/17/2024 3:03 PM CDT) LVEF 50-55% (borderlin e) CARDIOLOGY RESULTS Anatomical Region Laterality Modality Ultrasound 07/17/2024 2:33 PM CDT Narrative 07/17/2024 4:04 PM CDT [id number]^GÓMEZ^[place] [address] Name: SHIVA MONIQUE : 1940 Study Date: 07/17/2024 02:33 PM Age: 83 yrs Gender: Male Patient Location: [facility] Reason For Study: Dyspnea Ordering Physician: CHANTAL MAGAÑA Performed By: WILLIAN BSA: 2.3 m2 Height: 70 in Weight: 253 lb HR: 86 BP: 121/67 mmHg Procedure Echocardiogram with two-dimensional, color and spectral Doppler. Compared to the prior study dated 02/12/2024, there have been no changes. Interpretation Summary 1.Left ventricular function is decreased. The ejection fraction is 50-55% (borderline). 2.There is mild concentric left ventricular hypertrophy. 3.Flattened septum is consistent with RV pressure/volume overload. 4.The right ventricle is mildly dilated. Mildly decreased right ventricular systolic function 5.There is mild to moderate (1-2+) mitral regurgitation. ERO is 0.17 cm2 with a volume of 21 mL. 6.There is mod-severe to severe (3-4+) tricuspid regurgitation. 7.Right ventricular systolic pressure is elevated, consistent with moderate pulmonary hypertension. 8.Moderate ascending Aorta dilatation is present 44 mm. 9.IVC diameter >2.1 cm collapsing <50% with sniff suggests a high RA pressure estimated at 15 mmHg or greater. Compared to the prior study dated 02/12/2024, the LV is weaker and the RV enlarged and weaker and the TR now severe. I WMSI = 1.00 % Normal = 100 X - Cannot 0 - (2) - Mildly 2 - Segments Size Interpret Hyperkinetic 1 - Normal Hypokinetic Hypokinetic 1-2 small 7 - 3-5 moderate 3 - Akinetic 4 - 5 - 6 - Akinetic Dyskinetic 6-14 large Dyskinetic Aneurysmal w/scar w/scar 15-16 diffuse Left Ventricle Left ventricular function is decreased. The ejection fraction is 50-55% (borderline). There is mild concentric left ventricular hypertrophy. Left ventricular diastolic function is not assessable. Flattened septum is consistent with RV pressure/volume overload. Right Ventricle The right ventricle is mildly dilated. TAPSE is abnormal, which is consistent with abnormal right ventricular systolic function. Mildly decreased right ventricular systolic function. Atria The left atrium is moderately dilated. The right atrium is moderately dilated. There is no color Doppler evidence of an atrial shunt. Mitral Valve Mitral valve leaflets appear normal. There is mild to moderate (1-2+) mitral regurgitation. ERO is 0.17 cm2 with a volume of 21 mL. There is no mitral valve stenosis. Tricuspid Valve The tricuspid valve is not well visualized, but is grossly normal. There is mod-severe to severe (3-4+) tricuspid regurgitation. Right ventricular systolic pressure is elevated, consistent with moderate pulmonary hypertension. Aortic Valve Aortic valve leaflets appear normal. There is no evidence of aortic stenosis or clinically significant aortic regurgitation. The aortic valve is trileaflet. No aortic regurgitation is present. No aortic stenosis is present. Pulmonic Valve The pulmonic valve is not well seen, but is grossly normal. This degree of valvular regurgitation is within normal limits. There is no pulmonic valvular stenosis. Vessels The aorta root is normal. Ascending Aorta dilatation is present. IVC diameter >2.1 cm collapsing <50% with sniff suggests a high RA pressure estimated at 15 mmHg or greater. Pericardium Trivial posterior pericardial effusion. Rhythm The rhythm was atrial fibrillation. MMode/2D Measurements & Calculations IVSd: 1.2 cm LVIDd: 5.5 cm LVIDs: 3.8 cm LVPWd: 1.1 cm FS: 31.0 % LV mass(C)d: 260.0 grams LV mass(C)dI: 112.7 grams/m2 Ao root diam: 4.2 cm LA dimension: 5.3 cm asc Aorta Diam: 4.4 cm LA/Ao: 1.3 LVOT diam: 2.2 cm LVOT area: 3.8 cm2 Ao root diam index Ht(cm/m): 2.4 Ao root diam index BSA (cm/m2): 1.8 Asc Ao diam index BSA (cm/m2): 1.9 Asc Ao diam index Ht(cm/m): 2.5 EF Biplane: 47.9 % LA Volume (BP): 93.8 ml LA Volume Index (BP): 40.6 ml/m2 LA Volume Indexed (AL/bp): 43.7 ml/m2 RV Base: 5.5 cm RWT: 0.41 TAPSE: 1.0 cm Time Measurements MM HR: 90.0 BPM Doppler Measurements & Calculations MV E max lizy: 97.3 cm/sec MV dec slope: 463.3 cm/sec2 MV dec time: 0.22 sec Ao V2 max: 121.0 cm/sec Ao max P.0 mmHg Ao V2 mean: 91.6 cm/sec Ao mean P.0 mmHg Ao V2 VTI: 25.0 cm CLAUDIA(I,D): 2.4 cm2 CLAUDIA(V,D): 2.5 cm2 LV V1 max P.6 mmHg LV V1 max: 80.1 cm/sec LV V1 VTI: 16.0 cm MR PISA: 2.3 cm2 MR ERO: 0.17 cm2 MR volume: 21.3 ml SV(LVOT): 60.7 ml SI(LVOT): 26.3 ml/m2 TR max lizy: 309.0 cm/sec TR max P.2 mmHg AV Lizy Ratio (DI): 0.66 CLAUDIA Index (cm2/m2): 1.1 E/E': 13.1 E/E' av.6 Lateral E/e': 13.1 Medial E/e': 18.1 Peak E' Lizy: 7.4 cm/sec RV S Lizy: 7.6 cm/sec Report approved by: Shlomo Robins MD on 07/17/2024 04:04 PM Procedure Note Katie Robins MD - 07/17/2024 [id number]^GÓMEZ^[place] [address] Name: SHIVA MONIQUE : 1940 Study Date: 07/17/2024 02:33 PM Age: 83 yrs Gender: Male Patient Location: [facility] Reason For Study: Dyspnea Ordering Physician: CHANTAL MAAGÑA Performed By: WILLIAN BSA: 2.3 m2 Height: 70 in Weight: 253 lb HR: 86 BP: 121/67 mmHg Procedure Echocardiogram with two-dimensional, color and spectral Doppler. Comparedto the prior study dated 02/12/2024, there have been no changes. Interpretation Summary 1.Left ventricular function is decreased. The ejection fraction is50-55% (borderline). 2.There is mild concentric left ventricular hypertrophy. 3.Flattened septum is consistent with RV pressure/volume overload. 4.The right ventricle is mildly dilated. Mildly decreased rightventricular systolic function 5.There is mild to moderate (1-2+) mitral regurgitation. ERO is 0.17 [id number] a volume of 21 mL. 6.There is mod-severe to severe (3-4+) tricuspid regurgitation. 7.Right ventricular systolic pressure is elevated, consistent withmoderate pulmonary hypertension. 8.Moderate ascending Aorta dilatation is present 44 mm. 9.IVC diameter >2.1 cm collapsing <50% with sniff suggests a high RApressure estimated at 15 mmHg or greater. Compared to the prior study dated 02/12/2024, the LV is weaker and theRV enlarged and weaker and the TR now severe. I WMSI = 1.00 % Normal = 100 X - Cannot 0 - (2) - Mildly 2 - SegmentsSize Interpret Hyperkinetic 1 - Normal Hypokinetic Hypokinetic 1-2small 7 - 3-5 moderate 3 - Akinetic 4 - 5 - 6 - Akinetic Dyskinetic 6-14large Dyskinetic Aneurysmal w/scar w/scar 15-16diffuse Left Ventricle Left ventricular function is decreased. The ejection fraction is 50-55% (borderline). There is mild concentric left ventricular hypertrophy.Left ventricular diastolic function is not assessable. Flattened septum is consistent with RV pressure/volume overload. Right Ventricle The right ventricle is mildly dilated. TAPSE is abnormal, which isconsistent with abnormal right ventricular systolic function. Mildly decreasedright ventricular systolic function. Atria The left atrium is moderately dilated. The right atrium is moderatelydilated. There is no color Doppler evidence of an atrial shunt. Mitral Valve Mitral valve leaflets appear normal. There is mild to moderate (1-2+)mitral regurgitation. ERO is 0.17 cm2 with a volume of 21 mL. There is nomitral valve stenosis. Tricuspid Valve The tricuspid valve is not well visualized, but is grossly normal. Thereis mod-severe to severe (3-4+) tricuspid regurgitation. Right ventricular systolic pressure is elevated, consistent with moderate pulmonary hypertension. Aortic Valve Aortic valve leaflets appear normal. There is no evidence of aorticstenosis or clinically significant aortic regurgitation. The aortic valve is trileaflet. No aortic regurgitation is present. No aortic stenosis ispresent. Pulmonic Valve The pulmonic valve is not well seen, but is grossly normal. This degreeof valvular regurgitation is within normal limits. There is no pulmonicvalvular stenosis. Vessels The aorta root is normal. Ascending Aorta dilatation is present. IVCdiameter >2.1 cm collapsing <50% with sniff suggests a high RA pressure estimatedat 15 mmHg or greater. Pericardium Trivial posterior pericardial effusion. Rhythm The rhythm was atrial fibrillation. MMode/2D Measurements & Calculations IVSd: 1.2 cm LVIDd: 5.5 cm LVIDs: 3.8 cm LVPWd: 1.1 cm FS: 31.0 % LV mass(C)d: 260.0 grams LV mass(C)dI: 112.7 grams/m2 Ao root diam: 4.2 cm LA dimension: 5.3 cm asc Aorta Diam: 4.4 cm LA/Ao: 1.3 LVOT diam: 2.2 cm LVOT area: 3.8 cm2 Ao root diam index Ht(cm/m): 2.4 Ao root diam index BSA (cm/m2): 1.8 Asc Ao diam index BSA (cm/m2): 1.9 Asc Ao diam index Ht(cm/m): 2.5 EF Biplane: 47.9 % LA Volume (BP): 93.8 ml LA Volume Index (BP): 40.6 ml/m2 LA Volume Indexed (AL/bp): 43.7 ml/m2 RV Base: 5.5 cm RWT: 0.41 TAPSE: 1.0 cm Time Measurements MM HR: 90.0 BPM Doppler Measurements & Calculations MV E max lizy: 97.3 cm/sec MV dec slope: 463.3 cm/sec2 MV dec time: 0.22 sec Ao V2 max: 121.0 cm/sec Ao max P.0 mmHg Ao V2 mean: 91.6 cm/sec Ao mean P.0 mmHg Ao V2 VTI: 25.0 cm CLAUDIA(I,D): 2.4 cm2 CLAUDIA(V,D): 2.5 cm2 LV V1 max P.6 mmHg LV V1 max: 80.1 cm/sec LV V1 VTI: 16.0 cm MR PISA: 2.3 cm2 MR ERO: 0.17 cm2 MR volume: 21.3 ml SV(LVOT): 60.7 ml SI(LVOT): 26.3 ml/m2 TR max lizy: 309.0 cm/sec TR max P.2 mmHg AV Lizy Ratio (DI): 0.66 CLAUDIA Index (cm2/m2): 1.1 E/E': 13.1 E/E' av.6 Lateral E/e': 13.1 Medial E/e': 18.1 Peak E' Lizy: 7.4 cm/sec RV S Lizy: 7.6 cm/sec Report approved by: Shlomo Robins MD on 07/17/2024 04:04 PM Chantal Magaña MD CV ECHO ORDERABLES Edited Result - Final * (ABNORMAL) Potassium (07/17/2024 2:50 PM CDT) [facility] Potassium 2.9(L) 3.4 - 5.3 mmol/L 07/17/2024 3:03 PM CDT [facility] Blood STRUCTURE OF RIGHT HAND / Unknown Venipuncture / Unknown 07/17/2024 2:50 PM CDT 07/17/2024 2:52 PM CDT Chantal Magaña MD LAB - BLOOD ORDERABLES Final Res ult [facility] [address] [place] [address], [facility] * US Lower Extremity Venous Duplex Bilateral (07/17/2024 1:07 PM CDT) Anatomical Region Laterality Modality Vascular, Thigh, Leg Ultrasound 07/17/2024 1:07 PM CDT Impressions 07/17/2024 4:56 PM CDT IMPRESSION: 1. No deep venous thrombosis in the bilateral lower extremities. Narrative 07/17/2024 4:56 PM CDT EXAM: US LOWER EXTREMITY VENOUS DUPLEX BILATERAL LOCATION: [facility] DATE: 07/17/2024 INDICATION: bilateral leg swelling COMPARISON: None. TECHNIQUE: Venous Duplex ultrasound of bilateral lower extremities with and without compression, augmentation and duplex. Color flow and spectral Doppler with waveform analysis performed. FINDINGS: Exam includes the common femoral, femoral, popliteal veins as well as segmentally visualized deep calf veins and greater saphenous vein. RIGHT: No deep vein thrombosis. No superficial thrombophlebitis. No popliteal cyst. LEFT: No deep vein thrombosis. No superficial thrombophlebitis. No popliteal cyst. Procedure Note Shiva Fenton MD - 07/17/2024 EXAM: US LOWER EXTREMITY VENOUS DUPLEX BILATERAL LOCATION: [facility] DATE: 07/17/2024 INDICATION: bilateral leg swelling COMPARISON: None. TECHNIQUE: Venous Duplex ultrasound of bilateral lower extremities withand without compression, augmentation and duplex. Color flow and spectralDoppler with waveform analysis performed. FINDINGS: Exam includes the common femoral, femoral, popliteal veins aswell as segmentally visualized deep calf veins and greater saphenous vein. RIGHT: No deep vein thrombosis. No superficial thrombophlebitis. Nopopliteal cyst. LEFT: No deep vein thrombosis. No superficial thrombophlebitis. Nopopliteal cyst. IMPRESSION: 1. No deep venous thrombosis in the bilateral lower extremities. Chantal Magaña [place] [facility] [place] Final Result * TSH with free T4 reflex (07/17/2024 10:40 AM CDT) TSH 2.72 0.30 - 4.20 uIU/mL 07/17/2024 12:32 PM CDT [facility] Blood BLOOD SPECIMEN / Unknown Venipuncture / Unknown 07/17/2024 10:40 AM CDT 07/17/2024 10:44 AM CDT Chantal Magaña MD LAB - BLOOD ORDERABLES Final Res ult [facility] [address] [place] [address], [facility] * Influenza A/B, RSV and SARS-CoV2 PCR (COVID-19) Nasopharyngeal (07/17/2024 10:40 AM CDT) Influenza A PCR Negative Negative 07/17/2024 11:23 AM CDT [facility] Influenza B PCR Negative Negative 07/17/2024 11:23 AM CDT [facility] RSV PCR Negative Negative 07/17/2024 11:23 AM CDT [facility] SARS CoV2 PCR Negative Negative 07/17/2024 11:23 AM CDT [facility] Comment:NEGATIVE: SARS-CoV-2 (COVID-19) RNA not detected, presumed negative. Swab NASOPHARYNGEAL STRUCTURE / Unknown Non-blood Collection / Unknown 07/17/2024 10:40 AM CDT 07/17/2024 10:44 AM CDT Narrative [facility] - 07/17/2024 11:23 AM CDT Testing was performed using the Xpert Xpress CoV2/Flu/RSV Assay on the [employer] GeneXpert Instrument. This test should be ordered for the detection of SARS- CoV2, influenza, and RSV viruses in individuals with signs and symptoms of respiratory tract infection. This test is for in vitro diagnostic use under the [place] FDA for laboratories certified under CLIA to perform high or moderate complexity testing. This test has been [place] FDA cleared. A negative result does not rule out the presence of PCR inhibitors in the specimen or target RNA in concentration below the limit of detection for the assay. If only one viral target is positive but coinfection with multiple targets is suspected, the sample should be re-tested with another FDA cleared, approved, or authorized test, if coninfection would change clinical management. This test was validated by the [facility]. These laboratories are certified under the Clinical Laboratory Improvement Amendments of 1988 (CLIA-88) as qualified to perfom high complexity laboratory testing. Chantal Magaña MD LAB - MICRO GENERAL ORDERABLES F inal Result Performing Organization Address [facility]/ZIP Co de Phone Number [facility] [place] [address], [facility] * (ABNORMAL) Troponin T, High Sensitivity (07/17/2024 10:40 AM CDT) Troponin T, High Sensitivity 202(HH) <=22 ng/L 07/17/2024 11:10 AM CDT [facility] Comment: Either a High Sensitivity Troponin T baseline (0 hours) value = 100 ng/L, or an increase in High Sensitivity Troponin T = 7 ng/L at 2 hours compared to 0 hours (2-0 hours), suggests myocardial injury, and urgent clinical attention is required. If the 2-0 hours increase is <7 ng/L, a High Sensitivity Troponin T result above gender-specific reference ranges warrants further evaluation. Recommendations for further evaluation include correlation with clinical decision-making tool (e.g., HEART), a 3rd High Sensitivity Troponin T test 2 hours after the 2nd (a 20% change from baseline would represent concern), admission for observation, close PCC/cardiology follow-up, or urgent outpatient provocative testing. Blood BLOOD SPECIMEN / Unknown Venipuncture / Unknown 07/17/2024 10:40 AM CDT 07/17/2024 10:44 AM CDT Gab Jacob MD LAB - BLOOD ORDERABLES Final Result [facility] [address] [place] [address], [facility] * Chest XR, PA & LAT (07/17/2024 9:14 AM CDT) Anatomical Region Laterality Modality Chest Digital Radiogra phy 07/17/2024 9:14 AM CDT Impressions 07/17/2024 9:28 AM CDT IMPRESSION: Moderately enlarged cardiac silhouette with central pulmonary vascular congestion, diffuse interstitial edema, and small right and trace left pleural effusions, suggesting CHF exacerbation. Bibasilar opacities are favored to reflect atelectasis. No pneumothorax. Aortic atherosclerotic calcifications. Narrative 07/17/2024 9:28 AM CDT EXAM: XR CHEST 2 VIEWS LOCATION: [facility] DATE: 07/17/2024 INDICATION: sob, chf COMPARISON: Chest radiograph 02/16/2024. Procedure Note Marquez Lunsford MD - 07/17/2024 EXAM: XR CHEST 2 VIEWS LOCATION: [facility] DATE: 07/17/2024 INDICATION: sob, chf COMPARISON: Chest radiograph 02/16/2024. IMPRESSION: Moderately enlarged cardiac silhouette with central pulmonary vascularcongestion, diffuse interstitial edema, and small right and trace leftpleural effusions, suggesting CHF exacerbation. Bibasilar opacities arefavored to reflect atelectasis. No pneumothorax. Aortic atherosclerotic calcifications. us Gab Jacob MD IMG DIAGNOSTIC IMAGING ORDERA BLES Final Result * Extra Green Top ([place] Heparin) Tube (07/17/2024 8:51 AM CDT) [facility] Hold Specimen JIC 07/17/2024 10:04 AM CDT [facility] Blood BLOOD SPECIMEN / Unknown Venipuncture / Unknown 07/17/2024 8:51 AM CDT 07/17/2024 8:55 AM CDT Gab Jacob MD LAB - BLOOD ORDERABLES Final Result [facility] [address] [place] [address], [facility] * (ABNORMAL) CBC with platelets and differential (07/17/2024 8:51 AM CDT) [facility] WBC Count 7.6 4.0 - 11.0 10e3/uL 07/17/2024 9:00 AM CDT [facility] RBC Count 3.00(L) 4.40 - 5.90 10e6/uL 07/17/2024 9:00 AM CDT [facility] Hemoglobin 9.9(L) 13.3 - 17.7 g/dL 07/17/2024 9:00 AM CDT [facility] Hematocrit 28.6(L) 40.0 - 53.0 % 07/17/2024 9:00 AM CDT [facility] MCV 95 78 - 100 fL 07/17/2024 9:00 AM [facility] MCH 33.0 26.5 - 33.0 pg 07/17/2024 9:00 AM [facility] MCHC 34.6 31.5 - 36.5 g/dL 07/17/2024 9:00 AM [facility] RDW 16.6(H) 10.0 - 15.0 % 07/17/2024 9:00 AM [facility] Platelet Count 114(L) 150 - 450 10e3/uL 07/17/2024 9:00 AM [facility] % Neutrophils 72 % 07/17/2024 9:00 AM [facility] % Lymphocytes 14 % 07/17/2024 9:00 AM [facility] % Monocytes 10 % 07/17/2024 9:00 AM [facility] % Eosinophils 3 % 07/17/2024 9:00 AM [facility] % Basophils 0 % 07/17/2024 9:00 AM [facility] % Immature Granulocytes 0 % 07/17/2024 9:00 AM [facility] NRBCs per 100 WBC 0 <1 /100 025 9:00 AM [facility] Absolute Neutrophils 5.5 1.6 - 8.3 10e3/uL 07/17/2024 9:00 AM [facility] Absolute Lymphocytes 1.1 0.8 - 5.3 10e3/uL 07/17/2024 9:00 AM [facility] Absolute Monocytes 0.8 0.0 - 1.3 10e3/uL 07/17/2024 9:00 AM [facility] Absolute Eosinophils 0.2 0.0 - 0.7 10e3/uL 07/17/2024 9:00 AM [facility] Absolute Basophils 0.0 0.0 - 0.2 10e3/uL 07/17/2024 9:00 AM [facility] Absolute Immature Granulocytes 0.0 <=0.4 10e3/uL 07/17/2024 9:00 AM [facility] Absolute NRBCs 0.0 10e3/uL 07/17/2024 9:00 AM [facility] Blood BLOOD SPECIMEN / Unknown Venipuncture / Unknown 07/17/2024 8:51 AM CDT 07/17/2024 8:53 AM CDT Gab Jacob MD LAB - BLOOD ORDERABLES Final Result Performing Organization Address [facility]/ZIP Co de Phone Number [facility] [address] [place] [address] [address] [place] [address], [facility] * (ABNORMAL) Magnesium (07/17/2024 8:51 AM CDT) Pathologist [facility] Magnesium 2.5(H) 1.7 - 2.3 mg/dL 07/17/2024 9:21 AM CDT [facility] Blood BLOOD SPECIMEN / Unknown Venipuncture / Unknown 07/17/2024 8:51 AM CDT 07/17/2024 8:53 AM CDT Gab Jacob MD LAB - BLOOD ORDERABLES Final Result Performing Organization Address [facility] de Phone Number [facility] [address] [place] [address] [place] [address], [facility] * (ABNORMAL) Troponin T, High Sensitivity (07/17/2024 8:51 AM CDT) Troponin T, High Sensitivity 217(HH) <=22 ng/L 07/17/2024 9:27 AM CDT [facility] Comment: Either a High Sensitivity Troponin T baseline (0 hours) value = 100 ng/L, or an increase in High Sensitivity Troponin T = 7 ng/L at 2 hours compared to 0 hours (2-0 hours), suggests myocardial injury, and urgent clinical attention is required. If the 2-0 hours increase is <7 ng/L, a High Sensitivity Troponin T result above gender-specific reference ranges warrants further evaluation. Recommendations for further evaluation include correlation with clinical decision-making tool (e.g., HEART), a 3rd High Sensitivity Troponin T test 2 hours after the 2nd (a 20% change from baseline would represent concern), admission for observation, close PCC/cardiology follow-up, or urgent outpatient provocative testing. Blood BLOOD SPECIMEN / Unknown Venipuncture / Unknown 07/17/2024 8:51 AM CDT 07/17/2024 8:53 AM CDT us Gab Jacob MD LAB - BLOOD ORDERABLES Final Result [facility] [address] [place] [address], [facility] * (ABNORMAL) Comprehensive metabolic panel (07/17/2024 8:51 AM CDT) Sodium 135 135 - 145 mmol/L 07/17/2024 9:21 AM [facility] Potassium 3.3(L) 3.4 - 5.3 mmol/L 07/17/2024 9:21 AM [facility] Carbon Dioxide (CO2) 24 22 - 29 mmol/L 07/17/2024 9:21 AM [facility] Anion Gap 19(H) 7 - 15 mmol/L 07/17/2024 9:21 AM [facility] Urea Nitrogen 81.4(H) 8.0 - 23.0 mg/dL 07/17/2024 9:21 AM [facility] Creatinine 2.82(H) 0.67 - 1.17 mg/dL 07/17/2024 9:21 AM [facility] GFR Estimate 22(L) >60 mL/min/1.7 3m2 07/17/2024 9:21 AM [facility] Comment:eGFR calculated us2020 CKD-EPI equation. Calcium 10.3 8.8 - 10.4 mg/dL 07/17/2024 9:21 AM [facility] Chloride 92(L) 98 - 107 mmol/L 07/17/2024 9:21 AM [facility] Glucose 100(H) 70 - 99 mg/dL 07/17/2024 9:21 AM [facility] Alkaline Phosphatase 122 40 - 150 U/L 07/17/2024 9:21 AM [facility] AST 27 0 - 45 U/L 07/17/2024 9:21 AM [facility] ALT 21 0 - 70 U/L 07/17/2024 9:21 AM [facility] Protein Total 7.1 6.4 - 8.3 g/dL 07/17/2024 9:21 AM CDT [facility] Albumin 4.0 3.5 - 5.2 g/dL 07/17/2024 9:21 AM CDT [facility] Bilirubin Total 0.8 <=1.2 mg/dL 07/17/2024 9:21 AM CDT [facility] Blood BLOOD SPECIMEN / Unknown Venipuncture / Unknown 07/17/2024 8:51 AM CDT 07/17/2024 8:53 AM CDT us Gab Jacob MD LAB - BLOOD ORDERABLES Final Result [facility] [address] [place] [address], [facility] * (ABNORMAL) NT-proBNP (07/17/2024 8:51 AM CDT) Pathologist [facility] NT-proBNP 8,393(H) 0 - 852 pg/mL 07/17/2024 9:21 AM CDT [facility] Comment: Starting on 07/06/2024, [facility] laboratory began flagging abnormal values for plasma NT-proBNP results for adults using age-specific reference ranges instead of clinical cut-points/thresholds (see interpretation comment below for clinical threshold values) as part of a test standardization effort. Pediatric abnormal values were already previously flagged using age-specific reference intervals, which are not currently changing. The test methodology remains unchanged, and previous results performed with this methodology can be interpreted with the updated reference intervals. [facility]'s Pediatric (boys and girls) Reference Ranges in pg/mL * 0 up to 3 days: 0 - 28779 3 days up to 1 month: 0 - 6500 1 month up to 1 year: 0 - 1000 2 up to 6 years: 0 - 330 6 up to 18 years: 0 - 240 Male Reference Ranges in pg/mL 18-44 years: 0 - 93 45-54 years: 0 - 138 55-64 years: 0 - 177 65-74 years: 0 - 229 75 years or older: 0 - 852 Female Reference Ranges in pg/mL 8-44 years: 0 - 178 45-54 years: 0 - 192 55-64 years: 0 - 226 65-74 years: 0 - 353 75 years or older: 0 - 624 Reference ranges in adults reflect 95th percentiles for NT-pro-BNP levels in patients without congestive heart failure (CHF). Knowledge of each individual patient's NT-proBNP range may be more useful than using similar cut-points for every patient. For adult chronic CHF patients according to [place] [employer] (NYHA) Functional Class, the mean NT-proBNP concentration is as following (5th and 95th percentile values respectively displayed in parentheses): Class I: 1016 pg/mL (33-3410) Class II: 1666 pg/mL (103-6567) Class III: 3029 pg/mL (126-57639) Class IV: 3465 pg/mL (148-97307) Clinical thresholds for acute (emergency department) settings: < 300 pg/mL effectively rules out acute decompensated heart failure (ADHF), with 99% negative predictive value. The following values may rule in potential acute decompensated heart failure (ADHF) in individuals (with a PPV of 50-60%): Under 50 years: >450 pg/mL Between 50-75 years: >900 pg/mL Over 75 years: >1800 pg/mL Among patients with dyspnea, NT-proBNP is highly sensitive for detection of acute CHF. Elevations in NT-proBNP levels may be observed in states other than left ventricular congestive failure including: acute coronary syndromes, right heart strain/failure (including pulmonary embolism and cor pulmonale), critical illness, and renal failure. Falsely low NT-proBNP in CHF patients may be observed in increased body mass index. * References: (1) Terrance Haile et al. Pediatr Cardiol 30:3-8, 2008. Blood BLOOD SPECIMEN / Unknown Venipuncture / Unknown 07/17/2024 8:51 AM CDT 07/17/2024 8:53 AM CDT us Gab Jacob MD LAB - BLOOD ORDERABLES Final Result [facility] [address] [place] [address], [facility] * ECG 12-LEAD WITH MUSE (LHE) (07/17/2024 8:40 AM CDT) Systolic Blood Pressure mmHg RADIOLOGY RESULTS Diastolic Blood Pressure mmHg RADIOLOGY RESULTS Ventricular Rate 71 BPM RAD IOLOGY RESULTS Atrial Rate 77 BPM RADIOLOG Y RESULTS MO Interval ms RADIOLOG Y RESULTS QRS Duration 188 ms RADIOLO GY RESULTS QT 472 ms RADIOLOGY RESULTS QTc 512 ms RADIOLOGY RESULTS P [place] degrees RADIOLOGY RESULTS R AXIS -77 degrees RADIOLOGY RESULTS T [place] 47 degrees RADIOLOGY RESULTS Interpretation ECG Atrial fibrillation Left axis deviation Right bundle branch block Inferior infarct (cited on or before 16-Feb-2024) Abnormal ECG When compared with ECG of 16-Feb-2024 09:18, No significant change was found Confirmed by SEE ED PROVIDER NOTE FOR, ECG INTERPRETATION ([id number]), editorial director Oneida Vasquez ([id number]) on 07/17/2024 8:51:16 AM RADIOLOGY RESULTS 07/17/2024 8:40 AM CDT 07/17/2024 8:51 AM CDT us Jett Saul MD ECG ORDERABLES Edited Resu lt - Final RADIOLOGY RESULTS documented in this encounter Visit Diagnoses Diagnosis Alteration in skin integrity [R23.9]- Primary Acute on chronic congestive heart failure, unspecified heart failure type (H) Chronic heart failure with preserved ejection fraction (H) Stage 3b chronic kidney disease (H) Rash Rash and other nonspecific skin eruption Edema, unspecified type Haemophilus influenzae infection Hemophilus influenzae (H. influenzae) infection in conditions classified elsewhere and of unspecified site Acute on chronic congestive heart failure, unspecified heart failure type (H) Other ill-defined heart diseases Other ill-defined heart diseases documented in this encounter Admitting Diagnoses Diagnosis Acute on chronic congestive heart failure, unspecified heart failure type (H) documented in this encounter Administered Medications Inactive Administered Medications - up to 3 most recent administrations Medication Order MAR Action Action Date Dose Rate Site acetaminophen (TYLENOL) Suppository 650 mg 650 mg, Rectal, EVERY 6 HOURS PRN, mild pain, other, and adjunct with moderate or severe pain or per patient request, Starting on 07/17/24 at 1149, Alternate with ibuprofen if ordered. Maximum acetaminophen dose from all sources = 75 mg/kg/day not to exceed 4 grams/day. acetaminophen (TYLENOL) tablet 650 mg 650 mg, Oral, EVERY 6 HOURS PRN, mild pain, other, and adjunct with moderate or severe pain or per patient request, Starting on 07/17/24 at 1149, Alternate with ibuprofen if ordered. Maximum acetaminophen dose from all sources = 75 mg/kg/day not to exceed 4 grams/day. allopurinol (ZYLOPRIM) tablet 200 mg 200 mg, Oral, DAILY, First dose on 07/18/24 at 0800 $Given 07/20/2024 9:17 AM CDT 200 mg $Given 07/19/2024 8:03 AM CDT 200 mg $Given 07/18/2024 8:37 AM CDT 200 mg apixaban ANTICOAGULANT (ELIQUIS) tablet 2.5 mg 2.5 mg, Oral, 2 TIMES DAILY, First dose on 07/17/24 at 2000, Indications: Afib-non valvularIndications:Afib-non valvular $Given 07/20/2024 9:18 AM CDT 2.5 mg $Given 07/19/2024 8:14 PM CDT 2.5 mg $Given 07/19/2024 8:03 AM CDT 2.5 mg benzocaine-menthol (CEPACOL) 15-3.6 MG lozenge 1 lozenge 1 lozenge, Buccal, EVERY 1 HOUR PRN, sore throat, without fever, Starting on 07/17/24 at 1149 bumetanide (BUMEX) injection 1 mg 1 mg, Intravenous, ONCE, On 07/17/24 at 1200, For 1 dose $Given 07/17/2024 1:51 PM CDT 1 mg bumetanide (BUMEX) injection 3 mg 3 mg, Intravenous, ONCE, On 07/17/24 at 1030, For 1 dose $Given 07/17/2024 11:15 AM CDT 3 mg bumetanide (BUMEX) injection 4 mg 4 mg, Intravenous, EVERY 8 HOURS, First dose on 07/17/24 at 2000 $Given 07/19/2024 4:46 AM CDT 4 mg $Given 07/18/2024 9:47 PM CDT 4 mg $Given 07/18/2024 2:12 PM CDT 4 mg bumetanide (BUMEX) tablet 4 mg 4 mg, Oral, 2 TIMES DAILY (Diuretics and Nitrates), First dose on Thu07/19/24 at 1200 $Given 07/20/2024 9:17 AM CDT 4 mg $Given 07/19/2024 8:17 PM CDT 4 mg $Given 07/19/2024 12:14 PM CDT 4 mg calcium carbonate (TUMS) chewable tablet 1,000 mg 1,000 mg, Oral, 4 TIMES DAILY PRN, heartburn, Starting on Thu07/17/24 at 1149 dextrose 50 % injection 25-50 mL 25-50 mL, Intravenous, EVERY 15 MIN PRN, low blood sugar, Administer over 1-5 Minutes, Starting on Thu07/17/24 at 1218, Use if have IV access, BG less than 70 mg/dL and meet dose criteria below: Dose if conscious and alert (or disorientated) and NPO = 25 mL Dose if unconscious / not alert = 50 mL Give first dose for initial blood glucose less than 70 mg/dL. If blood glucose at 15 minute recheck is less than or equal to 80 mg/dL continue to administer carbohydrate treatment every 15 minutes, as needed, based on blood glucose and assessment parameters until blood glucose level is above 80 mg/dL x 2 consecutive 15 minute checks. docusate sodium (COLACE) capsule 100 mg 100 mg, Oral, 2 TIMES DAILY (Diuretics and Nitrates), First dose on Thu07/17/24 at 1200, Hold for a decent bowel movement in the last 24h. Hold for loose stools. empagliflozin (JARDIANCE) tablet 10 mg 10 mg, Oral, DAILY, First dose on Thu07/18/24 at 0800 $Given 07/20/2024 10:21 AM CDT 10 mg $Given 07/19/2024 8:03 AM CDT 10 mg $Given 07/18/2024 8:37 AM CDT 10 mg glucagon injection 1 mg 1 mg, Subcutaneous, EVERY 15 MIN PRN, low blood sugar, May repeat x 1 only, Starting on Thu07/17/24 at 1218, May give SQ or IM. ONLY use glucagon IF patient has NO IV access AND is UNABLE to swallow AND blood glucose is LESS than or EQUAL to 50 mg/dL. glucose gel 15-30 g 15-30 g, Oral, EVERY 15 MIN PRN, low blood sugar, Starting on Thu07/17/24 at 1218, Give first dose for initial blood glucose less than 70 mg/dL per the dosing instructions below. If blood glucose at 15 minute rechecks is still less than or equal to 80 mg/dL, continue to administer doses per blood glucose parameters every 15 minutes, as needed, until blood glucose level is at or above 80 mg/dL x 2 consecutive 15 minute checks. Dosing Instructions: ~If patient is conscious and able to swallow and NO enteral tube For initial BG 51-69mg/dL OR 15 minute recheck BG 51- 80 mg/dL - give 15 g For BG less than or equal to 50 mg/dL - give 30 g ~ If Enteral tube For initial BG 51-69mg/dL OR 15 minute recheck BG 51- 80 mg/dL - give apple juice 120 mL (4 oz or 15 g of CHO) via enteral tube For BG less than or equal to 50 mg/dL - Give apple juice 240 mL (8 oz or 30 g of CHO) via enteral tube ~Oral gel is preferable for conscious and able to swallow patient. ~IF gel unavailable or patient refuses may provide apple juice per Enteral tube dosing instructions. Document juice on I and O flowsheet. guaiFENesin (ROBITUSSIN) 20 mg/mL solution 200 mg 200 mg, Oral, EVERY 4 HOURS PRN, other, secretion expectorant, Starting on 07/17/24 at 1149 insulin aspart (NovoLOG) injection (RAPID ACTING) 1-7 Units, Subcutaneous, 3 TIMES DAILY BEFORE MEALS, First dose on 07/17/24 at 1230, Correction Scale - MEDIUM INSULIN RESISTANCE DOSING Do Not give Correction Insulin if Pre-Meal BG less than 140. For Pre-Meal BG 140 - 189 give 1 unit. For Pre-Meal BG 190 - 239 give 2 units. For Pre-Meal BG 240 - 289 give 3 units. For Pre-Meal BG 290 - 339 give 4 units. For Pre-Meal BG 340- 389 give 5 units. For Pre-Meal BG 390-439 give 6 units For Pre-Meal BG greater than or equal to 440 give 7 units. If patient is NOT eating a meal: Blood glucose should still be checked and correction (sliding scale) insulin to be administered within 30 minutes if order parameters are met. If patient is eating a meal: To be given with prandial insulin if ordered, and based on pre-meal blood glucose. Administering insulin within 5 minutes of the start of the meal is ideal. Administer insulin no more than 30 minutes after the start of the meal, unless directed otherwise by provider. Notify provider if glucose greater than or equal to 350 mg/dL after administration of correction dose. insulin aspart (NovoLOG) injection (RAPID ACTING) 1-5 Units, Subcutaneous, AT BEDTIME, First dose on 07/17/24 at 2200, MEDIUM INSULIN RESISTANCE DOSING Do Not give Bedtime Correction Insulin if BG less than 200. For BG 200 - 249 give 1 units. For BG 250 - 299 give 2 units. For BG 300 - 349 give 3 units. For BG 350 -399 give 4 units. For BG greater than or equal to 400 give 5 units. Notify provider if glucose greater than or equal to 350 mg/dL after administration of correction dose. lidocaine (LMX4) cream Topical, EVERY 1 HOUR PRN, pain, with VAD insertion, Starting on 07/17/24 at 1149, Apply at least 30 minutes prior to VAD insertion in divided doses as needed for size of site for insertion. MAX Dose: 2.5 g ( of 5 g tube) Do NOT give if patient has a history of allergy to any local anesthetic or any heber product. Do NOT use both lidocaine intradermal/subcutaneous injection and the lidocaine cream on the same site. lidocaine 1 % 0.1-1 mL 0.1-1 mL, Other, EVERY 1 HOUR PRN, mild pain with VAD insertion, Starting on 07/17/24 at 1149, MAX dose 1 mL subcutaneous OR intradermal along the side of the vein in divided doses as needed for VAD insertion. Do NOT give if patient has a history of allergy to any local anesthetic or any heber product. Do NOT use both lidocaine intradermal/subcutaneous injection and the lidocaine cream on the same site. melatonin tablet 1 mg 1 mg, Oral, AT BEDTIME PRN, sleep, Starting on 07/17/24 at 1149, Do not give unless at least 6 hours of uninterrupted sleep is expected. If patient has multiple medications ordered PRN sleep/insomnia, offer melatonin first. metolazone (ZAROXOLYN) tablet 5 mg 5 mg, Oral, ONCE, On 07/17/24 at 1200, For 1 dose $Given 07/17/2024 1:52 PM CDT 5 mg metolazone (ZAROXOLYN) tablet 5 mg 5 mg, Oral, DAILY, First dose (after last reorder) on 07/18/24 at 0900 $Given 07/19/2024 8:03 AM CDT 5 mg $Given 07/18/2024 8:37 AM CDT 5 mg miconazole (MICATIN) 2 % powder Topical, 2 TIMES DAILY PRN, other, candidiasis/intertrigo, Starting on 07/17/24 at 1149, To skin folds ondansetron (ZOFRAN ODT) ODT tab 4 mg 4 mg, Oral, EVERY 6 HOURS PRN, nausea, vomiting, Starting on 07/17/24 at 1149, This is Step 1 of nausea and vomiting management. If nausea not resolved in 15 minutes, go to Step 2 prochlorperazine (COMPAZINE). With dry hands, peel back foil backing and gently remove tablet. Do not push oral disintegrating tablet through foil backing. Administer immediately on tongue and oral disintegrating tablet dissolves in seconds, then swallow with saliva. Liquid not required. ondansetron (ZOFRAN) injection 4 mg 4 mg, Intravenous, EVERY 6 HOURS PRN, nausea, vomiting, Administer over 2-5 Minutes, Starting on 07/17/24 at 1149, Give IF patient unable to tolerate oral medication. This is Step 1 of nausea and vomiting management. If nausea not resolved in 15 minutes, go to Step 2 prochlorperazine (COMPAZINE). pantoprazole (PROTONIX) EC tablet 40 mg 40 mg, Oral, EVERY MORNING BEFORE BREAKFAST, First dose on Thu07/17/24 at 1400, DO NOT CRUSH. $Given 07/20/2024 9:17 AM CDT 40 mg $Given 07/19/2024 8:03 AM CDT 40 mg $Given 07/18/2024 8:37 AM CDT 40 mg polyethylene glycol (MIRALAX) Packet 17 g 17 g, Oral, 2 TIMES DAILY (Diuretics and Nitrates), First dose on 07/17/24 at 1200, Hold for a decent bowel movement in the last 24h. 1 Packet = 17 grams. Mix each gram with at least 1/2 ounce (15 mL) of water - 8 ounces for 17 g dose, 4 ounces for 8.5 g dose, 2 ounces for 4 g dose. Follow with the same volume of water. Hold for loose stools unless being administered as part of a bowel prep regimen or bowel clean out. potassium chloride (KLOR-CON) Packet 20 mEq 20 mEq, Oral or Feeding Tube, ONCE, On Thu07/19/24 at 0630, For 1 dose, Potassium level 3.1-3.4 mmol/L Ordered from the Potassium replacement order set. Dissolve packet contents in 4-8 ounces of cold water or juice., Potassium Replacement: Potassium level 3.1-3.4 mmol/L, Recheck: Potassium level 4 hours AFTER last oral or feeding tube dose $Given 07/19/2024 6:11 AM CDT 20 mEq potassium chloride brett ER (KLOR-CON M10) CR tablet 10 mEq 10 mEq, Oral, ONCE, On Thu07/18/24 at 1930, For 1 dose, Potassium level 3.5-3.8 mmol/L Ordered from the Potassium replacement order set. DO NOT CRUSH., Potassium Replacement: Potassium level 3.5-3.8 mmol/L, Recheck: Potassium level next AM $Given 07/18/2024 9:47 PM CDT 10 mEq potassium chloride brett ER (KLOR-CON M20) CR tablet 20 mEq 20 mEq, Oral, ONCE, On Thu07/17/24 at 2130, For 1 dose, Potassium level 3.1 - 3.4 mmol/L Ordered from the Potassium replacement order set. DO NOT CRUSH, Potassium Replacement: Potassium level 3.1-3.4 mmol/L, Recheck: Potassium level 4 hours AFTER last oral dose $Given 07/17/2024 9:43 PM CDT 20 mEq potassium chloride brett ER (KLOR-CON M20) CR tablet 20 mEq 20 mEq, Oral, ONCE, On Thu07/18/24 at 0400, For 1 dose, Potassium level 3.1 - 3.4 mmol/L Ordered from the Potassium replacement order set. DO NOT CRUSH, Potassium Replacement: Potassium level 3.1-3.4 mmol/L, Recheck: Potassium level 4 hours AFTER last oral dose $Given 07/18/2024 4:18 AM CDT 20 mEq potassium chloride brett ER (KLOR-CON M20) CR tablet 20 mEq 20 mEq, Oral, ONCE, On Thu07/18/24 at 1300, For 1 dose, Potassium level 3.1 - 3.4 mmol/L Ordered from the Potassium replacement order set. DO NOT CRUSH, Potassium Replacement: Potassium level 3.1-3.4 mmol/L, Recheck: Potassium level 4 hours AFTER last oral dose $Given 07/18/2024 2:12 PM CDT 20 mEq potassium chloride brett ER (KLOR-CON M20) CR tablet 20 mEq 20 mEq, Oral, ONCE, On Thu07/19/24 at 1230, For 1 dose, Potassium level 3.1 - 3.4 mmol/L Ordered from the Potassium replacement order set. DO NOT CRUSH, Potassium Replacement: Potassium level 3.1-3.4 mmol/L, Recheck: Potassium level 4 hours AFTER last oral dose $Given 07/19/2024 12:14 PM CDT 20 mEq potassium chloride brett ER (KLOR-CON M20) CR tablet 20 mEq 20 mEq, Oral, ONCE, On Thu07/20/24 at 0730, For 1 dose, Potassium level 3.1 - 3.4 mmol/L Ordered from the Potassium replacement order set. DO NOT CRUSH, Potassium Replacement: Potassium level 3.1-3.4 mmol/L, Recheck: Potassium level 4 hours AFTER last oral dose $Given 07/20/2024 9:17 AM CDT 20 mEq potassium chloride brett ER (KLOR-CON M20) CR tablet 40 mEq 40 mEq, Oral, ONCE, On Thu07/17/24 at 1530, For 1 dose, Potassium level 2.7 - 3 mmol/L Ordered from the Potassium replacement order set. DO NOT CRUSH, Potassium Replacement: Potassium level 2.7-3 mmol/L, Recheck: Potassium level 4 hours AFTER last oral dose $Given 07/17/2024 3:53 PM CDT 40 mEq sodium chloride (PF) 0.9% PF flush 3 mL 3 mL, Intracatheter, EVERY 8 HOURS, First dose on Thu07/17/24 at 1200, to lock peripheral IV dormant line $Given 07/19/2024 8:15 PM CDT 3 mLs $Given 07/19/2024 12:14 PM CDT 3 mLs $Given 07/19/2024 4:59 AM CDT 3 mLs sodium chloride (PF) 0.9% PF flush 3 mL 3 mL, Intracatheter, EVERY 1 MIN PRN, line flush, other, to ensure patency or to lock dormant line, Starting on Thu07/17/24 at 1149 tamsulosin (FLOMAX) capsule 0.8 mg 0.8 mg, Oral, DAILY, First dose on Thu07/18/24 at 0800, Administer 30 minutes after the same meal each day. Capsules should be swallowed whole; do not crush chew or open. $Given 07/20/2024 9:17 AM CDT 0.8 mg $Given 07/19/2024 8:03 AM CDT 0.8 mg $Given 07/18/2024 8:37 AM CDT 0.8 mg documented in this encounter Active and Recently Administered Medications Times are shown in CDT. Scheduled Medication Order 07/18/2024 07/19/2024 07/20/2024 allopurinol (ZYLOPRIM) tablet 200 mg 200 mg, Oral, DAILY, First dose on Thu07/18/24 at 0800 0837 ($Given - Provider: Trevin Baldwin RN) 0803 ($Given - Provider: Trevin Baldwin RN) 0917 ($Given - Provider: Kirk Astorga RN) apixaban ANTICOAGULANT (ELIQUIS) tablet 2.5 mg 2.5 mg, Oral, 2 TIMES DAILY, First dose on Thu07/17/24 at 2000, Indications: Afib-non valvular 0837 ($Given - Provider: Trevin Baldwin RN)2147 ($Given - Provider: Quin Reddy RN) 0803 ($Given - Provider: Trevin Baldwin RN)2014 ($Given - Provider: Liliya Lowe RN) 0918 ($Given - Provider: Kirk Astorga, JAMILA) bumetanide (BUMEX) injection 4 mg (CANCELED) 4 mg, Intravenous, EVERY 8 HOURS, First dose on Thu07/17/24 at 2000 0418 ($Given - Provider: Shaila Blount RN)1412 ($Given - Provider: Trevin Baldwin RN)2147 ($Given - Provider: Quin Reddy RN) 0446 ($Given - Provider: Quin Reddy RN) bumetanide (BUMEX) tablet 4 mg 4 mg, Oral, 2 TIMES DAILY (Diuretics and Nitrates), First dose on Thu07/19/24 at 1200 1214 ($Given - Provider: Trevin Baldwin RN)2017 ($Given - Provider: Liliya Lowe RN) 0917 ($Given - Provider: Kirk Astorga, JAMILA) docusate sodium (COLACE) capsule 100 mg 100 mg, Oral, 2 TIMES DAILY (Diuretics and Nitrates), First dose on Thu07/17/24 at 1200, Hold for a decent bowel movement in the last 24h. Hold for loose stools. 0837 (Not Given - Provider: Trevin Baldwin RN - Reason: Patient/family refused)1729 (Not Given - Provider: Trevin Baldwin RN - Reason: Patient/family refused) 0803 (Not Given - Provider: Trevin Baldwin RN - Reason: Order parameters not met)1743 (Not Given - Provider: Trevin Baldwin RN - Reason: Patient/family refused) 1016 (Not Given - Provider: Kirk Astorga RN - Reason: Patient/family refused)1600 (Canceled Entry - Provider: Orders Generic Provider - Comment: Automatically canceled at discontinue of medication order) empagliflozin (JARDIANCE) tablet 10 mg 10 mg, Oral, DAILY, First dose on Thu07/18/24 at 0800 0837 ($Given - Provider: Trevin Baldwin RN) 0803 ($Given - Provider: Trevin Baldwin RN) 1021 ($Given - Provider: Kirk Astorga RN) insulin aspart (NovoLOG) injection (RAPID ACTING) 1-7 Units, Subcutaneous, 3 TIMES DAILY BEFORE MEALS, First dose on Thu07/17/24 at 1230, Correction Scale - MEDIUM INSULIN RESISTANCE DOSING Do Not give Correction Insulin if Pre-Meal BG less than 140. For Pre-Meal BG 140 - 189 give 1 unit. For Pre-Meal BG 190 - 239 give 2 units. For Pre-Meal BG 240 - 289 give 3 units. For Pre-Meal BG 290 - 339 give 4 units. For Pre-Meal BG 340- 389 give 5 units. For Pre-Meal BG 390-439 give 6 units For Pre-Meal BG greater than or equal to 440 give 7 units. If patient is NOT eating a meal: Blood glucose should still be checked and correction (sliding scale) insulin to be administered within 30 minutes if order parameters are met. If patient is eating a meal: To be given with prandial insulin if ordered, and based on pre-meal blood glucose. Administering insulin within 5 minutes of the start of the meal is ideal. Administer insulin no more than 30 minutes after the start of the meal, unless directed otherwise by provider. Notify provider if glucose greater than or equal to 350 mg/dL after administration of correction dose. 0837 (Not Given - Provider: Trevin Baldwin RN - Reason: Order parameters not met)1157 (Not Given - Provider: Trevin Baldwin RN - Reason: Order parameters not met)1702 (Not Given - Provider: Trevin Baldwin RN - Reason: Order parameters not met) 0804 (Not Given - Provider: Trevin Baldwin RN - Reason: Order parameters not met)1206 (Not Given - Provider: Trevin Baldwin RN - Reason: Order parameters not met)1743 (Not Given - Provider: Trevin Baldwin RN - Reason: Order parameters not met) 0725 (Not Given - Provider: Kirk Astorga RN - Reason: Order parameters not met)1225 (Not Given - Provider: Kirk Astorga RN - Reason: Order parameters not met) insulin aspart (NovoLOG) injection (RAPID ACTING) 1-5 Units, Subcutaneous, AT BEDTIME, First dose on 07/17/24 at 2200, MEDIUM INSULIN RESISTANCE DOSING Do Not give Bedtime Correction Insulin if BG less than 200. For BG 200 - 249 give 1 units. For BG 250 - 299 give 2 units. For BG 300 - 349 give 3 units. For BG 350 -399 give 4 units. For BG greater than or equal to 400 give 5 units. Notify provider if glucose greater than or equal to 350 mg/dL after administration of correction dose. 214 (Not Given - Provider: Quin Reddy RN - Reason: Order parameters not met) 214 (Hold - Provider: Liliya Lowe RN - Reason: Order parameters not met) metolazone (ZAROXOLYN) tablet 2.5 mg 2.5 mg, Oral, TWICE WEEKLY (Once per day on Thursday), First dose on Thu07/18/24 at 0900 0714 (Held by provider - Provider: Chantal Magaña MD - Reason: Other)0900 (Automatically Held - Provider: Chantal Magaña MD) 1141 (Unheld by provider - Provider: Evonne Rueda MD) metolazone (ZAROXOLYN) tablet 5 mg (CANCELED) 5 mg, Oral, DAILY, First dose (after last reorder) on Thu07/18/24 at 0900 0837 ($Given - Provider: Trevin Baldwin RN) 0803 ($Given - Provider: Trevin Baldwin RN) pantoprazole (PROTONIX) EC tablet 40 mg 40 mg, Oral, EVERY MORNING BEFORE BREAKFAST, First dose on Thu07/17/24 at 1400, DO NOT CRUSH. 0837 ($Given - Provider: Trevin Bladwin RN) 0803 ($Given - Provider: Trevin Baldwin RN) 0917 ($Given - Provider: Kirk Astorga RN) polyethylene glycol (MIRALAX) Packet 17 g 17 g, Oral, 2 TIMES DAILY (Diuretics and Nitrates), First dose on Thu07/17/24 at 1200, Hold for a decent bowel movement in the last 24h. 1 Packet = 17 grams. Mix each gram with at least 1/2 ounce (15 mL) of water - 8 ounces for 17 g dose, 4 ounces for 8.5 g dose, 2 ounces for 4 g dose. Follow with the same volume of water. Hold for loose stools unless being administered as part of a bowel prep regimen or bowel clean out. 0838 (Not Given - Provider: Trevin Baldwin RN - Reason: Patient/family refused)1729 (Not Given - Provider: Trvein Baldwin RN - Reason: Patient/family refused) 0803 (Not Given - Provider: Trevin Baldwin RN - Reason: Patient/family refused)1744 (Not Given - Provider: Trevin Baldwin RN - Reason: Patient/family refused) 1016 (Not Given - Provider: Kirk Astorga RN - Reason: Patient/family refused)1600 (Canceled Entry - Provider: Orders Generic Provider - Comment: Automatically canceled at discontinue of medication order) potassium chloride (KLOR-CON) Packet 20 mEq (COMPLETED) 20 mEq, Oral or Feeding Tube, ONCE, On Thu07/19/24 at 0630, For 1 dose, Potassium level 3.1-3.4 mmol/L Ordered from the Potassium replacement order set. Dissolve packet contents in 4-8 ounces of cold water or juice., Potassium Replacement: Potassium level 3.1-3.4 mmol/L, Recheck: Potassium level 4 hours AFTER last oral or feeding tube dose 0611 ($Given - Provider: Quin Reddy RN) potassium chloride brett ER (KLOR-CON M10) CR tablet 10 mEq (COMPLETED) 10 mEq, Oral, ONCE, On Thu07/18/24 at 1930, For 1 dose, Potassium level 3.5-3.8 mmol/L Ordered from the Potassium replacement order set. DO NOT CRUSH., Potassium Replacement: Potassium level 3.5-3.8 mmol/L, Recheck: Potassium level next AM 214 ($Given - Provider: Quin Reddy RN) potassium chloride brett ER (KLOR-CON M20) CR tablet 20 mEq (COMPLETED) 20 mEq, Oral, ONCE, On Thu07/18/24 at 0400, For 1 dose, Potassium level 3.1 - 3.4 mmol/L Ordered from the Potassium replacement order set. DO NOT CRUSH, Potassium Replacement: Potassium level 3.1-3.4 mmol/L, Recheck: Potassium level 4 hours AFTER last oral dose 0418 ($Given - Provider: Shaila Blount RN) potassium chloride rbett ER (KLOR-CON M20) CR tablet 20 mEq (COMPLETED) 20 mEq, Oral, ONCE, On Thu07/18/24 at 1300, For 1 dose, Potassium level 3.1 - 3.4 mmol/L Ordered from the Potassium replacement order set. DO NOT CRUSH, Potassium Replacement: Potassium level 3.1-3.4 mmol/L, Recheck: Potassium level 4 hours AFTER last oral dose 1412 ($Given - Provider: Trevin Baldwin RN) potassium chloride brett ER (KLOR-CON M20) CR tablet 20 mEq (COMPLETED) 20 mEq, Oral, ONCE, On Thu07/19/24 at 1230, For 1 dose, Potassium level 3.1 - 3.4 mmol/L Ordered from the Potassium replacement order set. DO NOT CRUSH, Potassium Replacement: Potassium level 3.1-3.4 mmol/L, Recheck: Potassium level 4 hours AFTER last oral dose 1214 ($Given - Provider: Trevin Baldwin RN) potassium chloride brett ER (KLOR-CON M20) CR tablet 20 mEq (COMPLETED) 20 mEq, Oral, ONCE, On Thu07/20/24 at 0730, For 1 dose, Potassium level 3.1 - 3.4 mmol/L Ordered from the Potassium replacement order set. DO NOT CRUSH, Potassium Replacement: Potassium level 3.1-3.4 mmol/L, Recheck: Potassium level 4 hours AFTER last oral dose 0917 ($Given - Provider: Kirk Astorga RN) sodium chloride (PF) 0.9% PF flush 3 mL 3 mL, Intracatheter, EVERY 8 HOURS, First dose on Thu07/17/24 at 1200, to lock peripheral IV dormant line 0433 (Canceled Entry - Provider: Shaila Blount RN - Comment: given with bumex)1412 ($Given - Provider: Trevin Baldwin RN)2208 ($Given - Provider: Quin Reddy RN) 0459 ($Given - Provider: Quin Reddy RN)1214 ($Given - Provider: Trevin Baldwin RN)2015 ($Given - Provider: Liliya Lowe RN) 0400 (Hold - Provider: Liliya Lowe RN - Reason: IV Infusing)1303 (Canceled Entry - Provider: Kirk Astorga RN) tamsulosin (FLOMAX) capsule 0.8 mg 0.8 mg, Oral, DAILY, First dose on Thu07/18/24 at 0800, Administer 30 minutes after the same meal each day. Capsules should be swallowed whole; do not crush chew or open. 0837 ($Given - Provider: Trevin Baldwin RN) 0803 ($Given - Provider: Trevin Baldwin RN) 0917 ($Given - Provider: Kirk Astorga RN) PRN Medication Order 07/18/2024 07/19/2024 07/20/2024 acetaminophen (TYLENOL) Suppository 650 mg(Linked Group 1) 650 mg, Rectal, EVERY 6 HOURS PRN, mild pain, other, and adjunct with moderate or severe pain or per patient request, Starting on 07/17/24 at 1149, Alternate with ibuprofen if ordered. Maximum acetaminophen dose from all sources = 75 mg/kg/day not to exceed 4 grams/day. acetaminophen (TYLENOL) tablet 650 mg(Linked Group 1) 650 mg, Oral, EVERY 6 HOURS PRN, mild pain, other, and adjunct with moderate or severe pain or per patient request, Starting on 07/17/24 at 1149, Alternate with ibuprofen if ordered. Maximum acetaminophen dose from all sources = 75 mg/kg/day not to exceed 4 grams/day. benzocaine-menthol (CEPACOL) 15-3.6 MG lozenge 1 lozenge 1 lozenge, Buccal, EVERY 1 HOUR PRN, sore throat, without fever, Starting on 07/17/24 at 1149 calcium carbonate (TUMS) chewable tablet 1,000 mg 1,000 mg, Oral, 4 TIMES DAILY PRN, heartburn, Starting on 07/17/24 at 1149 dextrose 50 % injection 25-50 mL(Linked Group 2) 25-50 mL, Intravenous, EVERY 15 MIN PRN, low blood sugar, Administer over 1-5 Minutes, Starting on 07/17/24 at 1218, Use if have IV access, BG less than 70 mg/dL and meet dose criteria below: Dose if conscious and alert (or disorientated) and NPO = 25 mL Dose if unconscious / not alert = 50 mL Give first dose for initial blood glucose less than 70 mg/dL. If blood glucose at 15 minute recheck is less than or equal to 80 mg/dL continue to administer carbohydrate treatment every 15 minutes, as needed, based on blood glucose and assessment parameters until blood glucose level is above 80 mg/dL x 2 consecutive 15 minute checks. glucagon injection 1 mg(Linked Group 2) 1 mg, Subcutaneous, EVERY 15 MIN PRN, low blood sugar, May repeat x 1 only, Starting on 07/17/24 at 1218, May give SQ or IM. ONLY use glucagon IF patient has NO IV access AND is UNABLE to swallow AND blood glucose is LESS than or EQUAL to 50 mg/dL. glucose gel 15-30 g(Linked Group 2) 15-30 g, Oral, EVERY 15 MIN PRN, low blood sugar, Starting on 07/17/24 at 1218, Give first dose for initial blood glucose less than 70 mg/dL per the dosing instructions below. If blood glucose at 15 minute rechecks is still less than or equal to 80 mg/dL, continue to administer doses per blood glucose parameters every 15 minutes, as needed, until blood glucose level is at or above 80 mg/dL x 2 consecutive 15 minute checks. Dosing Instructions: ~If patient is conscious and able to swallow and NO enteral tube For initial BG 51-69mg/dL OR 15 minute recheck BG 51- 80 mg/dL - give 15 g For BG less than or equal to 50 mg/dL - give 30 g ~ If Enteral tube For initial BG 51-69mg/dL OR 15 minute recheck BG 51- 80 mg/dL - give apple juice 120 mL (4 oz or 15 g of CHO) via enteral tube For BG less than or equal to 50 mg/dL - Give apple juice 240 mL (8 oz or 30 g of CHO) via enteral tube ~Oral gel is preferable for conscious and able to swallow patient. ~IF gel unavailable or patient refuses may provide apple juice per Enteral tube dosing instructions. Document juice on I and O flowsheet. guaiFENesin (ROBITUSSIN) 20 mg/mL solution 200 mg 200 mg, Oral, EVERY 4 HOURS PRN, other, secretion expectorant, Starting on 07/17/24 at 1149 lidocaine (LMX4) cream Topical, EVERY 1 HOUR PRN, pain, with VAD insertion, Starting on 07/17/24 at 1149, Apply at least 30 minutes prior to VAD insertion in divided doses as needed for size of site for insertion. MAX Dose: 2.5 g ( of 5 g tube) Do NOT give if patient has a history of allergy to any local anesthetic or any heber product. Do NOT use both lidocaine intradermal/subcutaneous injection and the lidocaine cream on the same site. lidocaine 1 % 0.1-1 mL 0.1-1 mL, Other, EVERY 1 HOUR PRN, mild pain with VAD insertion, Starting on 07/17/24 at 1149, MAX dose 1 mL subcutaneous OR intradermal along the side of the vein in divided doses as needed for VAD insertion. Do NOT give if patient has a history of allergy to any local anesthetic or any heber product. Do NOT use both lidocaine intradermal/subcutaneous injection and the lidocaine cream on the same site. melatonin tablet 1 mg 1 mg, Oral, AT BEDTIME PRN, sleep, Starting on 07/17/24 at 1149, Do not give unless at least 6 hours of uninterrupted sleep is expected. If patient has multiple medications ordered PRN sleep/insomnia, offer melatonin first. miconazole (MICATIN) 2 % powder Topical, 2 TIMES DAILY PRN, other, candidiasis/intertrigo, Starting on 07/17/24 at 1149, To skin folds ondansetron (ZOFRAN ODT) ODT tab 4 mg(Linked Group 3) 4 mg, Oral, EVERY 6 HOURS PRN, nausea, vomiting, Starting on 07/17/24 at 1149, This is Step 1 of nausea and vomiting management. If nausea not resolved in 15 minutes, go to Step 2 prochlorperazine (COMPAZINE). With dry hands, peel back foil backing and gently remove tablet. Do not push oral disintegrating tablet through foil backing. Administer immediately on tongue and oral disintegrating tablet dissolves in seconds, then swallow with saliva. Liquid not required. ondansetron (ZOFRAN) injection 4 mg(Linked Group 3) 4 mg, Intravenous, EVERY 6 HOURS PRN, nausea, vomiting, Administer over 2-5 Minutes, Starting on 07/17/24 at 1149, Give IF patient unable to tolerate oral medication. This is Step 1 of nausea and vomiting management. If nausea not resolved in 15 minutes, go to Step 2 prochlorperazine (COMPAZINE). sodium chloride (PF) 0.9% PF flush 3 mL 3 mL, Intracatheter, EVERY 1 MIN PRN, line flush, other, to ensure patency or to lock dormant line, Starting on 07/17/24 at 1149 Linked Groups Order Group 1: acetaminophen (TYLENOL) tablet 650 mgJump to med 650 mg, Oral, EVERY 6 HOURS PRN, mild pain, other, and adjunct with moderate or severe pain or per patient request, Starting on 07/17/24 at 1149, Alternate with ibuprofen if ordered. Maximum acetaminophen dose from all sources = 75 mg/kg/day not to exceed 4 grams/day. Or acetaminophen (TYLENOL) Suppository 650 mgJump to med 650 mg, Rectal, EVERY 6 HOURS PRN, mild pain, other, and adjunct with moderate or severe pain or per patient request, Starting on 07/17/24 at 1149, Alternate with ibuprofen if ordered. Maximum acetaminophen dose from all sources = 75 mg/kg/day not to exceed 4 grams/day. Group 2: glucose gel 15-30 gJump to med 15-30 g, Oral, EVERY 15 MIN PRN, low blood sugar, Starting on 07/17/24 at 1218, Give first dose for initial blood glucose less than 70 mg/dL per the dosing instructions below. If blood glucose at 15 minute rechecks is still less than or equal to 80 mg/dL, continue to administer doses per blood glucose parameters every 15 minutes, as needed, until blood glucose level is at or above 80 mg/dL x 2 consecutive 15 minute checks. Dosing Instructions: ~If patient is conscious and able to swallow and NO enteral tube For initial BG 51-69mg/dL OR 15 minute recheck BG 51- 80 mg/dL - give 15 g For BG less than or equal to 50 mg/dL - give 30 g ~ If Enteral tube For initial BG 51-69mg/dL OR 15 minute recheck BG 51- 80 mg/dL - give apple juice 120 mL (4 oz or 15 g of CHO) via enteral tube For BG less than or equal to 50 mg/dL - Give apple juice 240 mL (8 oz or 30 g of CHO) via enteral tube ~Oral gel is preferable for conscious and able to swallow patient. ~IF gel unavailable or patient refuses may provide apple juice per Enteral tube dosing instructions. Document juice on I and O flowsheet. Or dextrose 50 % injection 25-50 mLJump to med 25-50 mL, Intravenous, EVERY 15 MIN PRN, low blood sugar, Administer over 1-5 Minutes, Starting on 07/17/24 at 1218, Use if have IV access, BG less than 70 mg/dL and meet dose criteria below: Dose if conscious and alert (or disorientated) and NPO = 25 mL Dose if unconscious / not alert = 50 mL Give first dose for initial blood glucose less than 70 mg/dL. If blood glucose at 15 minute recheck is less than or equal to 80 mg/dL continue to administer carbohydrate treatment every 15 minutes, as needed, based on blood glucose and assessment parameters until blood glucose level is above 80 mg/dL x 2 consecutive 15 minute checks. Or glucagon injection 1 mgJump to med 1 mg, Subcutaneous, EVERY 15 MIN PRN, low blood sugar, May repeat x 1 only, Starting on 07/17/24 at 1218, May give SQ or IM. ONLY use glucagon IF patient has NO IV access AND is UNABLE to swallow AND blood glucose is LESS than or EQUAL to 50 mg/dL. Group 3: ondansetron (ZOFRAN ODT) ODT tab 4 mgJump to med 4 mg, Oral, EVERY 6 HOURS PRN, nausea, vomiting, Starting on 07/17/24 at 1149, This is Step 1 of nausea and vomiting management. If nausea not resolved in 15 minutes, go to Step 2 prochlorperazine (COMPAZINE). With dry hands, peel back foil backing and gently remove tablet. Do not push oral disintegrating tablet through foil backing. Administer immediately on tongue and oral disintegrating tablet dissolves in seconds, then swallow with saliva. Liquid not required. Or ondansetron (ZOFRAN) injection 4 mgJump to med 4 mg, Intravenous, EVERY 6 HOURS PRN, nausea, vomiting, Administer over 2-5 Minutes, Starting on 07/17/24 at 1149, Give IF patient unable to tolerate oral medication. This is Step 1 of nausea and vomiting management. If nausea not resolved in 15 minutes, go to Step 2 prochlorperazine (COMPAZINE). documented in this encounter Additional Health Concerns Infection Onset Date Last Indicated Resolved Time Rule Out COVID-19 07/17/2024 07/17/2024 07/17/2024 11:23 AM CDT documented as of this encounter Care Teams Clinical Psychiatrist Relationship Specialty Start Date End Date Emil Cope MD [facility] [address] [place] [address] PCP - General Emergency Medicine 09/30/22 Emmanuel Nobles MD Hematology 02/07/22 Anthony Leyva MD [address] [place] [address] Gastroenterology 02/07/22 Anthony Mazariegos MD [address] [facility] [address] [place] [address] Assigned Heart and Vascular Provider 01/17/23 Nallely Saravia MD [address] [place] [address] Assigned Cancer Care Provider 06/23/23 07/21/24 documented as of this encounter
--- OUTSIDE RECORDS SUMMARY | 2024-08-09 12:50 | XMS_ITS | Encounter Summary ---
Author Organization [place] Address [address] [place] [address] Care Team Providers Care Rug Cleaner Helper Name Role Phone Emmanuel Nobles MD Unavailable [phone] Anthony Leyva MD Unavailable [phone] Emil Cope MD Primary Care Provider Anthony Ferrera MD Unavailable [phone] Ashleigh Casillas APRN [facility] Unavailable [phone] Reason for Visit * Reason Comments Follow [...] failure with preserved ejection fraction (H) Hypokalemia Anthony Ferrera MD [address] [facility] [address] [place] [address] Phone: tel: fax: Referral ID Status Reason Start Date Expiration Date V isits Requested Visits Authorized [id number] Pending Review 05/10/2024 05/10/2025 1 1 Encounter Details Date Type Department Care Team (Late st Contact Info) Description 08/09/2024 12:50 PM CDT Office Visit [facility] [address] [facility] [place] [phone] Anthony Ferrera MD [address] [facility] [address] [place] [address] Acute on chronic diastolic heart failure (H); [...] in an abandoned building, in an overnight care home, or couch-surfing.) Yes 07/17/2024 Are you worried [...] on file 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 Gender Identity Not on file Sexual Orientation Not on file documented as of this encounter Last Filed Vital Signs Vital Sign Reading Time Taken Comments Blood Pressure 119/68 08/09/2024 12:46 PM CDT Pulse 72 08/09/2024 12:46 PM CDT Temperature - - Respiratory Rate 16 08/09/2024 12:4 6 PM CDT Oxygen Saturation 99% 08/09/2024 12: 46 PM CDT Inhaled Oxygen Concentration - - Weight 108.1 kg (238 lb 4.8 oz) 025 12:46 PM CDT Height 177.8 cm (5' 10) 08/09/2024 12: 46 PM CDT Body Mass Index 34.19 08/09/2024 12:46 PM CDT documented in this encounter Progress Notes * Anthony Ferrera MD - 08/09/2024 12:50 PM CDT Images from the original note were not included. [facility] [phone] Assessment/Recommendations Patient with known heart failure with preserved ejection fraction, significant cuspid insufficiency, myelodysplastic syndrome who was recently hospitalized for fluid overload. He lost about 15 poundsof water weight during his hospital stay. Breathing is a little bit better by his family's report and he is not sure if it is much better. Peripheral edema is significantly better. Weights are up about 3 pounds since his discharge. He also had quite significant tricuspid insufficiency and I would like to talk with our structural team to see if he might be a candidate for a tricuspid clip. We would try to coordinate so that multiple tests and maybe even a consultation could be done [facility]. We will check a complete metabolic panel today and his CBC. No medication changes today as he is on higher doses of diuretics than he was prior to his hospitalstay. The longitudinal plan of care for the diagnosis(es)/condition(s) as documented were addressed during this visit. Due to the added complexity in care, I will continue to support Tutu in the subsequent management and with ongoing continuity of care. History of Present Illness/Subjective Mr. Tutu Ngo is a 83 year old male with known heart failure with preserved ejection fraction and tricuspid insufficiency. Feels like his breathing is short and his overall functional capacity is getting gradually worse. More weak since he was in the hospital but his weight is only going up about 3 pounds. He gets short of breath walking even short distances and especially without his walker. His peripheral edema is improved. Echocardiogram in the hospital showed an ejection fraction of 50 to 55%, flattened septum consistent with RV pressure volume overload and mildly decreased right ventricular systolic function. RV systolic pressure estimate was 38.2 mmHg plus right atrial pressure. Pha rmacologic nuclear study was ordered but he did not undergo this. He had a normal pharmacologic nuclear study in 2019. Physical Examination Review of Systems BP 119/68 (BP Location: Right arm, Patient Position: Sitting, Cuff Size: Adult Large) Pulse 72 Resp 16 Ht 1.778 m (5' 10) Wt 108.1 kg (238 lb 4.8 oz) SpO2 99% BMI 34.19 kg/m?? Body mass index is 34.19 kg/m??. Wt Readings from Last 3 Encounters: 08/09/24 108.1 kg (238 lb 4.8 oz) 07/20/24 114.3 kg (251 lb 15.8 oz) 07/06/24 113.6 kg (250 lb 6.4 oz) General Appearance: Alert, cooperative and in no acute distress. ENT/Mouth: Gause/moist oral mucosa EYES: no scleral icterus, normal conjunctivae Neck: JVP 15 cm. Positive hepatojugular reflux. Thyroid not visualized. Chest/Lungs: Lungs are clear to auscultation, equal chest wall expansion. Cardiovascular: S1, S2 with 2/6 systolic murmur ,clicks or rubs. No carotid bruits noted Abdomen: Nontender. Extremities: No cyanosis, clubbing o and mild bilateral pretibial edema mildly worse on the left Skin: no xanthelasma, warm. Neurologic: normal arm movement bilateral, no tremors Psychiatric: Appropriate affect. Encounter Vitals BP: 119/68 Pulse: 72 Resp: 16 SpO2: 99 % Weight: 108.1 kg (238 lb 4.8 oz) Height: 177.8 cm (5' 10) Medical History Surgical History Family History Social [...] Alberto Diallo MD; Location: [facility] OR ESOPHAGOSCOPY, GASTROSCOPY, DUODENOSCOPY (EGD), COMBINED N/A 12/13/2021 Procedure: ESOPHAGOGASTRODUODENOSCOPY (EGD) WITH BIOPSIES; Surgeon: Jose Alberto Diallo MD; Location: [facility] Main OR HERNIA REPAIR left [...] Currently Other Topics Concern Parent/sibling w/ CABG, [place] or angioplasty before [...] file Social Connections: Unknown (02/27/2021) Received from [facility] Social Connections Frequency of Communication with Friends [...] mouth 2 times daily. 60 tablet 4 betamethasone dipropionate (DIPROSONE) 0.05 % external cream Apply topically daily. bumetanide (BUMEX) 2 MG tablet Take 2 tablets (4 mg) by mouth 2 times daily. 120 tablet 1 desoximetasone (TOPICORT) 0.25 % external cream Apply topically 2 times daily as needed. empagliflozin (JARDIANCE) 10 MG TABS tablet TAKE 1 TABLET (10 MG) BY MOUTH DAILY 90 tablet 2 Glucosamine-Chondroitin (COSAMIN DS PO) Take 1 tablet by mouth 2 times daily. Cosamin DS 500/400 mg metolazone (ZAROXOLYN) 2.5 MG tablet Take 1 tablet twice weekly and as needed extra dose to take asneeded for weight gain of 3 pounds in a day or 5 pounds in a week 30 tablet 3 potassium chloride brett ER (KLOR-CON M20) 20 MEQ CR tablet Take 1 tablet (20 mEq) by mouth 2 times daily. 180 tablet 0 tamsulosin (FLOMAX) 0.4 MG capsule Take 0.4 mg by mouth daily Allergies Allergen Reactions Furosemide Rash Rash primarily on wrists, itchy. Amlodipine Besylate Unknown Folic Acid Diarrhea Claims to folic acid intolerant, causes diarrhea. Lab Results Chemistry/lipid CBC Cardiac Enzymes/BNP/TSH/INR Lab Results Component Value Date TRIG 101 05/24/2024 BUN 85.3 (H) 07/20/2024 NA 136 07/20/2024 CO2 29 07/20/2024 Lab Results Component Value Date WBC 7.9 07/20/2024 HGB 9.5 (L) 07/20/2024 HCT 28.1 (L) 07/20/2024 MCV 96 07/20/2024 PLT 107 (L) 07/20/2024 Lab Results Component Value Date TSH 2.72 07/17/2024 INR 1.67 (H) 12/12/2021 documented in this encounter Miscellaneous Notes * Addendum Note - Anthony Ferrera MD - 08/09/2024 12:50 PM CDTAddended by: ANTHONY FERRERA on: 08/09/2024 05:24 PM Modules accepted: Orders documented in this encounter Plan of Treatment Upcoming Encounters Date Type Department Care Team (Latest Contact Info) Description 09/30/2024 7:30 AM CDT Appointment [facility] [address] [place] [phone] Roman Krishnamurthy MD [address] [facility] [address] [place] [address] 09/30/2024 10:30 AM CDT Hospital Encounter [facility] [address] [place] [phone] Reese Lazaro MD [address] [address] Other ill-defined heart diseases 09/30/2024 10:30 AM CDT - 09/30/2024 12:30 PM CDT Surgery [facility] Care [address] [place] [phone] Reese Lazaro MD [address] [id number] Coronary Angiogram Scheduled Procedures Name Priority Associated Diagnoses Date/Ti me Percutaneous Coronary Intervention Other ill-defined heart diseases 09/30/2024 10:30 AM CDT documented as of this encounter Procedures Procedure Name Priority Date/Time Associated Diagnosis Comments FERRITIN Routine 08/09/2024 1:38 PM CDT Acute on chronic diastolic heart failure (H) Stage 3 chronic kidney disease, unspecified whether stage 3a or 3b CKD (H) Essential hypertension Iron malabsorption Permanent atrial fibrillation (H) VIANNEY (obstructive sleep apnea) Heart failure with preserved ejection fraction, unspecified HF chronicity (H) Chronic heart failure with preserved ejection fraction (H) Hypokalemia COMPREHENSIVE METABOLIC PANEL Routine 08/09/2024 1:38 PM CDT Acute on chronic diastolic heart failure (H) Stage 3 chronic kidney disease, unspecified whether stage 3a or 3b CKD (H) Essential hypertension Iron malabsorption Permanent atrial fibrillation (H) VIANNEY (obstructive sleep apnea) Heart failure with preserved ejection fraction, unspecified HF chronicity (H) Chronic heart failure with preserved ejection fraction (H) Hypokalemia CBC WITH PLATELETS Routine 08/09/2024 1: 38 PM CDT Acute on chronic diastolic heart failure (H) Stage 3 chronic kidney disease, unspecified whether stage 3a or 3b CKD (H) Essential hypertension Iron malabsorption Permanent atrial fibrillation (H) VIANNEY (obstructive sleep apnea) Heart failure with preserved ejection fraction, unspecified HF chronicity (H) Chronic heart failure with preserved ejection fraction (H) Hypokalemia documented in this encounter Results * Ferritin (08/09/2024 1:38 PM CDT) [facility] Ferritin 215 31 - 409 ng/mL 08/10/2024 12:17 PM CDT [facility] Blood STRUCTURE OF RIGHT UPPER LIMB / Unknown Venipuncture / Unknown 08/09/2024 1:38 PM CDT 08/09/2024 3:34 PM CDT us Anthony Ferrera MD LAB - BLOOD ORDERABLES Final Result [facility] [place] [facility] [address] [facility], [address] [phone] * (ABNORMAL) CBC with platelets (08/09/2024 1:38 PM CDT) [facility] WBC Count 8.8 4.0 - 11.0 10e3/uL 08/09/2024 3:36 PM CDT [facility] RBC Count 2.64(L) 4.40 - 5.90 10e6/uL 08/09/2024 3:36 PM CDT [facility] Hemoglobin 8.7(L) 13.3 - 17.7 g/dL 08/09/2024 3:36 PM CDT [facility] Hematocrit 25.7(L) 40.0 - 53.0 % 08/09/2024 3:36 PM CDT [facility] MCV 97 78 - 100 fL 08/09/2024 3:36 PM CDT [facility] MCH 33.0 26.5 - 33.0 pg 08/09/2024 3:36 PM CDT [facility] MCHC 33.9 31.5 - 36.5 g/dL 08/09/2024 3:36 PM CDT [facility] RDW 16.7(H) 10.0 - 15.0 % 08/09/2024 3:36 PM CDT [facility] Platelet Count 145(L) 150 - 450 10e3/uL 08/09/2024 3:36 PM CDT [facility] Blood STRUCTURE OF RIGHT UPPER LIMB / Unknown Venipuncture / Unknown 08/09/2024 1:38 PM CDT 08/09/2024 3:34 PM CDT Anthony Ferrera MD LAB - BLOOD ORDERABLES Final Result [facility] [address] [facility] [address], [facility] * (ABNORMAL) Comprehensive metabolic panel (08/09/2024 1:38 PM CDT) Sodium 134(L) 135 - 145 mmol/L 08/09/2024 3:53 PM [facility] Potassium 3.5 3.4 - 5.3 mmol/L 08/09/2024 3:53 PM [facility] Carbon Dioxide (CO2) 28 22 - 29 mmol/L 08/09/2024 3:53 PM [facility] Anion Gap 19(H) 7 - 15 mmol/L 08/09/2024 3:53 PM [facility] Urea Nitrogen 94.9(H) 8.0 - 23.0 mg/dL 08/09/2024 3:53 PM [facility] Creatinine 2.97(H) 0.67 - 1.17 mg/dL 08/09/2024 3:53 PM [facility] GFR Estimate 20(L) >60 mL/min/1.7 3m2 08/09/2024 3:53 PM [facility] Comment:eGFR calculated usin 2020 CKD-EPI equation. Calcium 10.7(H) 8.8 - 10.4 mg/dL 08/09/2024 3:53 PM [facility] Chloride 87(L) 98 - 107 mmol/L 08/09/2024 3:53 PM [facility] Glucose 95 70 - 99 mg/dL 08/09/2024 3:53 PM [facility] Alkaline Phosphatase 135 40 - 150 U/L 08/09/2024 3:53 PM [facility] AST 31 0 - 45 U/L 08/09/2024 3:53 PM [facility] ALT 23 0 - 70 U/L 08/09/2024 3:53 PM CDT [facility] Protein Total 7.2 6.4 - 8.3 g/dL 08/09/2024 3:53 PM CDT [facility] Albumin 4.0 3.5 - 5.2 g/dL 08/09/2024 3:53 PM CDT [facility] Bilirubin Total 0.9 <=1.2 mg/dL 08/09/2024 3:53 PM CDT [facility] Blood STRUCTURE OF RIGHT UPPER LIMB / Unknown Venipuncture / Unknown 08/09/2024 1:38 PM CDT 08/09/2024 3:34 PM CDT Anthony Ferrera MD LAB - BLOOD ORDERABLES Final Result Performing Organization Address City/State/[facility] Co de Phone Number [facility] [address] [facility] [address] documented in this encounter Visit Diagnoses Diagnosis [...] with preserved ejection fraction (H) Hypokalemia Hypopotassemia Other ill-defined heart diseases Other ill-defined heart diseases documented in this encounter Care Teams Rug Cleaner Helper Relationship Specialty Start Date End Date Emil Cope MD [facility] [address] [place] [address] PCP - General Emergency Medicine 09/30/22 Emmanuel Nobles MD Hematology 02/07/22 Anthony Leyva MD [address] [place] [address] Gastroenterology 02/07/22 Anthony Ferrera MD [address] [facility] [address] [place], [place] [phone] Assigned Heart and Vascular Provider 01/17/23 Ashleigh Casillas APRN [facility] [address] [place] [address] [address] [place], [place] [phone] Assigned Cancer Care Provider 07/22/24 documented as of this encounter
[2024-08-29 11:21] LABS: Chloride* 88 mmol/L (96-114); Sodium* 130 mmol/L (135-149)
[2024-08-29 11:22] LABS: Potassium* 4.1 mmol/L (3.6-5.1)
[2024-08-29 11:24] LABS: Blood Urea Nitrogen* 90 mg/dL (7-30); Creatinine* 3.5 mg/dL (0.5-1.5); Estimated Glomerular Filt Rate 17 ml/min
[2024-08-29 11:25] LABS: Anion Gap 14 mEq/L (7-15); Carbon Dioxide* 28 mmol/L (20-32); Glucose* 94 mg/dL (60-115)
--- OUTSIDE RECORDS SUMMARY | 2024-08-29 13:50 | XMS_ITS | Encounter Summary ---
Author Organization [place] Address [address] [facility] [place] [address] Care Team Providers Care Exercise Rider Name Role Phone Emmanuel Nobles MD Unavailable [phone] Anthony Leyva MD Unavailable [phone] Emil Cope MD Primary Care Provider Anthony Mazariegos MD Unavailable [phone] Ashleigh Casillas APRN LOT ATTENDANT Unavailable Reason for Visit * Reason Comments Follow Up Encounter Details Date Type Department Care Team (Latest Contact Info) Description 08/29/2024 1:50 PM CDT Virtual Visit [facility] [address] [facility] [address] [place] [phone] Anthony Mazariegos MD [address] [facility] [address] [place], [place] [phone] Heart failure with preserved ejection fraction, unspecified HF chronicity (H) (Primary Dx); Essential hypertension; Permanent atrial fibrillation (H); Other iron deficiency anemia Social History Tobacco Use Types Packs/Day Years [...] Answer Date Recorded Do you have housing? 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 Gender Identity Not on file Sexual Orientation Not on file documented as of this encounter Last Filed Vital Signs Vital Sign Reading Time Taken Comments Blood Pressure 113/71 08/29/2024 1:23 PM CDT pe r pt Pulse 83 08/29/2024 1:23 PM CDT per p t Temperature - - Respiratory Rate - - Oxygen Saturation - - Inhaled Oxygen Concentration - - Weight 111.6 kg (246 lb) 08/29/2024 1:23 PM CDT per pt Height 177.8 cm (5' 10) 08/29/2024 1:23 PM CDT per pt Body Mass Index 35.3 08/29/2024 1:23 PM CDT documented in this encounter Progress Notes * Anthony Mazariegos MD - 08/29/2024 1:50 PM CDT This is a virtual visit with the patient. The patient is in his home in [place] during the visitand I am at the office in our [facility] heart care clinic. We discussed his recent findings of significant increase in his BUN and creatinine, and significantdecrease in his hemoglobin which has been a steady finding. He has a history of mild dysplastic syndrome and previously had significant improvement in his hemoglobin with iron infusion but his current ferritin level is normal. 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 They have called him but he is not excepted at clinic appointment but will now after hearing a bit more explanation about this. We have also talked about a clip for his tricuspid valve which leaks severely. The typical evaluation of this would include a coronary angiogram and right heart catheterization. He would not except any x-ray dye as he is adamantly against any dialysis and would rather . We might be able to do a p harmacologic nuclear study and right heart cath but I will check with our structural team as well. We will start with the hematologic evaluation as if there are opportunities to improve his hemoglobin, his overall status could improve as well. Patient is a bit frustrated with his whole situation but does understand that he has 3 significant issues including valvular heart disease, anemia with a bone marrow disorder, and renal insufficiencywhich is significant. He also has a history of heart failure with preserved ejection fraction. We will try to set up a virtual visit for next week. Time the visit started was 2:06 PM, time the visit ended was 2:30 PM documented in this encounter Plan of Treatment Upcoming Encounters Date Type Department Care Team (Latest Contact Info) Description 09/30/2024 7:30 AM CDT Appointment [address] [phone] Roman Krishnamurthy MD [address] [facility] [address] [place] [address] 09/30/2024 10:30 AM CDT Hospital Encounter [facility] Care [address] [place] [phone] Reese Lazaro MD [address] [place] [address] Other ill-defined heart diseases 09/30/2024 10:30 AM CDT - 09/30/2024 12:30 PM CDT Surgery [address] [phone] Reese Lazaro MD [address] [place] [phone] Coronary Angiogram Scheduled Procedures Name Priority Associated Diagnoses Date/Ti me Percutaneous Coronary Intervention Other ill-defined heart diseases 09/30/2024 10:30 AM CDT documented as of this encounter Visit Diagnoses Diagnosis Other ill-defined heart diseases Heart failure with preserved ejection fraction, unspecified HF chronicity (H)- Primary Essential hypertension Unspecified essential hypertension Permanent atrial fibrillation (H) Atrial fibrillation Other iron deficiency anemia Other ill-defined heart diseases documented in this encounter Care Teams Exercise Rider Relationship Specialty Start Date End Date Emil Cope MD [facility] [address] [place] [address] PCP - General Emergency Medicine 09/30/22 Emmanuel Nobles MD Hematology 02/07/22 Anthony Leyva MD [address] [place] [address] Gastroenterology 02/07/22 Anthony Mazariegos MD [address] [facility] [address] [place] [address] Assigned Heart and Vascular Provider 01/17/23 Ashleigh Casillas APRN [facility] [address] [place] [address] [address] [place] [address] Assigned Cancer Care Provider 07/22/24 documented as of this encounter
--- OUTSIDE RECORDS SUMMARY | 2024-08-30 02:20 | XMS_ITS | Encounter Summary ---
Author Organization [place] Address [address] [facility] [place] [address] Care Team Providers Care Senior Java Ui Developer Name Role Phone Emmanuel Nobles MD Unavailable [phone] Anthony Leyva MD Unavailable [phone] Emil Cope MD Primary Care Provider Anthony Mazariegos MD Unavailable Ashleigh Casillas APRN [facility] Unavailable Reason for Visit * Reason Comments Medication Refill Encounter Details Date Type Department Care Team (Late st Contact Info) Description 08/22/2024 Refill [facility] [place] [address] [facility] [address] [place] [phone] Anthony Mazariegos MD [address] [facility] [address] [address] [place], [place] [phone] Medication Refill Social History Tobacco Use Types [...] in an abandoned building, in an overnight half-way, or couch-surfing.) Yes 07/17/2024 Are you worried [...] on file 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 Gender Identity Not on file Sexual Orientation Not on file documented as of this encounter Plan of Treatment Upcoming Encounters Date Type Department Care Team (Latest Contact Info) Description 09/30/2024 7:30 AM CDT Appointment [facility] [address] [place] [phone] Roman Krishnamurthy MD [address] [facility] 200 [place], [place] [phone] 09/30/2024 10:30 AM CDT Hospital Encounter [facility] [address] [place] [address] Reese Lazaro MD [address] [address] Other ill-defined heart diseases 09/30/2024 10:30 AM CDT - 09/30/2024 12:30 PM CDT [facility] [address] [place] [phone] Reese Lazaro MD [address] [address] Coronary Angiogram Scheduled Procedures Name Priority Associated Diagnoses Date/Ti me Percutaneous Coronary Intervention Other ill-defined heart diseases 09/30/2024 10:30 AM CDT documented as of this encounter Visit Diagnoses Diagnosis Permanent atrial fibrillation (H) Atrial fibrillation Other ill-defined heart diseases Other ill-defined heart diseases documented in this encounter Care Teams Senior Java Ui Developer Relationship Specialty Start Date End Date Emil Cope MD [facility] [address] [place] [address] PCP - General Emergency Medicine 09/30/22 Emmanuel Nobles MD Hematology 02/07/22 Anthony Leyva MD [address] [place] [address] Gastroenterology 02/07/22 Anthony Mazariegos MD [address] [place] [address] 200 [place] [address] Assigned Heart and Vascular Provider 01/17/23 Ashleigh Casillas APRN PRESSURE CONTROLLER [address] [place] [address], [facility]-[address] [place] [address] Assigned Cancer Care Provider 07/22/24 documented as of this encounter
--- OUTSIDE RECORDS SUMMARY | 2024-08-30 02:20 | XMS_ITS | Clinical Summary ---
Author Organization [facility] Address [facility] [place] [address] Care Team Providers Care Security Operations Analyst Name Role Phone Emil Holcomb MD Primary Care Provider Fuentes Romero MD Unavailable Nurses, Advanced Heart Failure Unavailable + Allergies Active Allergy Reactions Criticality Noted Date Comments Folic Acid Containing Drugs Diarrhea 08/25/19 13 Claims to folic acid intolerant, causes diarrhea. Furosemide Rash Medium 01/13/2019 Amlodipine Edema 08/18/2006 Medications glucosamine-chond roitin, 500-400 mg, (COSAMIN DS 500/400) 500-400 mg Cap Take 1 capsule by mouth. Twice daily 0 0 Active omega-3 fatty acids-vitamin E (FISH OIL) 1,000 mg cap Take 2 capsules by mouth. 0 4 Active chlorthalidone (HYGROTON) 25 mg tabletIndications :Unspecified essential hypertension Take 1 tablet by mouth once daily. 90 tablet 3 5 Active desoximetasone 0.25% topical (TOPICORT) 0.25 % cream Apply topically to affected area(s) 2 times daily. 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 90 capsule 3 5 Active ELIQUIS 2.5 mg tablet Take 1 tablet by mouth 2 times daily. 3 9 Active ciclopirox 0.77% cream (LOPROX) 0.77 % cream Apply topically as needed. 2 9 Active allopurinol (ZYLOPRIM) 100 mg tablet Take 2 tablets by mouth once daily. 2 0 Active medication order composer Benefiber 0 1 Active bumetanide (BUMEX) 1 mg tabletIndications :Chronic heart failure with preserved ejection fraction (HFpEF) (HC) Take 1 tablet by mouth 2 times daily. 180 tablet. 3 1 Active carvediloL (COREG) 12.5 mg tabletIndications :Chronic heart failure with preserved ejection fraction (HFpEF) (HC) Take 1.5 tablets by mouth 2 times daily with meals. 270 tablet. 3 1 Active digoxin (LANOXIN) 125 mcg (0.125 mg) tabletIndications :Chronic heart failure with preserved ejection fraction (HFpEF) (HC) Take 1 tablet by mouth once daily. 90 tablet 3 1 Active quinapriL (ACCUPRIL) 20 mg tabletIndications :Essential hypertension Take 1 tablet by mouth once daily. 90 tablet. 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 Post-op serum creatinine 02/17/11 1.98 mg/dl. Tinea cruris 12/17/2010 CKD (chronic kidney disease) stage 3, GFR 30-59 ml/min 09/17/2010 GERD (gastroesophageal reflux disease) 1 Colon polyp 06/11/2010 Overview (06/11/2010): Colonoscopy 04/2010 polyps repeat in 3 years [...] 02/17/2011 013 Left kidney mass 01/06/2011 06/10/2011 Overview (01/06/2011): Seen on chest CT and abdominal MRI done 01/04. Patient referred to Urology for evaluation for possible biopsy and/or resection. SOB (shortness of breath) 09/17/2010 Encounters Date Type Department Care Team Description 07/08/2024 1:00 PM CDT Ancillary Procedure [facility] & [address] [address] from Last 3 Months Immunizations Immunization Administration Dates Next Due Td (Age >=7 [...] at Not on file Legal Sex Male 6:22 AM TRAVEL COORDINATOR Gender Identity Not on file Sexual Orientation Not on file Obstetrics History Last Filed Vital Signs Vital Sign Reading Time Taken Comments Blood Pressure 136/70 11/29/2021 1:10 PM CDT Pulse 58 11/29/2021 1:10 PM CDT Temperature 36.1 C (97 F) 12/01/2014 11:20 AM CDT Respiratory Rate 18 11/29/2021 1:10 PM CDT Oxygen Saturation 96% 03/16/2019 3:04 PM TRAVEL COORDINATOR Inhaled Oxygen Concentration - - Weight 118.8 kg (262 lb) 11/29/2021 1:10 PM CDT Height 182.9 cm (6' 0.01) 03/16/2019 3:04 PM CS T Body Mass Index 35.53 03/16/2019 3:04 PM TRAVEL COORDINATOR Plan of Treatment Health Maintenance Due Date Last Done Comments Tdap 1953 Pneumococcal series for age 50+ (1 of 2 - PCV) 1961 Zoster (shingles) series for age 50+ (1 of 2) 1992 Medicare Wellness for age 65+ 08/26/2007 Depression screening for age 12+ 07/01/2016 07/02/2015 RSV vaccine for adults or (1 - 1-dose 75+ series) 2017 BMI (ht and wt on same day) for age 18+ 03/16/2020 03/16/2019, 01/13/2019 Tetanus booster 12/17/2020 12/17/2010 (Decl ined), 05/21/2010 (Declined), 07/21/1996 COVID-19 vaccine series ( season) 2023 07/23/2021, 01/17/2021, 05/01/2020, Additional history exists Influenza Vaccine (Season Ended) 2024 Hepatitis B series for 19+ Aged Out N o longer eligible based on patient's age to complete this topic Procedures Procedure Name Priority Date/Time Associated Diagnosis Comments ECHO TTE COMPLETE WO CONTRAST Routine 07/08/2024 1:25 PM CDT 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 SHIVA MONIQUE : 1940 83 years Study Date: 07/08/2024 12:47:33 PM Gender: M BP: 136/70 mmHg Height: 183.00 cm BSA: 2.39 m Weight: 119.00 kg Tech: BRIAN Referring MD: EMIL HOLCOMB Site: [facility] Reading Location: Mobile-OP Patient Location: Outpatient. Procedure: 2D, Color Doppler and Spectral Doppler. Indication for study: Right heart failure due to left heart failure Cardiac Rhythm: Irregular.Study quality: Good. Final Impressions: 1. Normal LV size, normal global systolic function with an estimated EF of 55 - 60%. 2. Right ventricular cavity size is moderately enlarged, global systolic RV function is moderately reduced. 3. Severe bi-atrial enlargement. 4. The mitral valve is normal, mild to moderate mitral regurgitation. 5. Tricuspid valve is non coapting, severe tricuspid regurgitation. 6. Dilated sinus of Valsalva, diameter of 4.3 cm (upper limit of normal for age, sex, and BSA is 4.2 cm*), Height Index 2.35 cm/m. 7. Small pericardial effusion. Comparison Compared to prior exam of 12/04/21: -The RV is larger w/ worse function and the degree of TR has increased Chamber Sizes and Function Normal left ventricular size, moderately increased wall thickness, normal global systolic function with an estimated EF of 55 - 60%. No resting regional wall motion abnormality visualized. Left atrial size is severely enlarged. Right ventricular cavity size is moderately enlarged, global systolic RV function is moderately reduced. The right atrium is severely enlarged. Right atrial volume index is 55 ml/m . Right atrial area is 35 cm . The pulmonary artery is of normal size and origin. The sinus of Valsalva is dilated. The ascending aorta is normal for age/sex/bsa. Valves, RV Pressures and Diastolic Function The aortic valve is normal in structure and trileaflet, no stenosis and trivial regurgitation. The mitral valve is normal in structure, mild to moderate mitral regurgitation. Indeterminate pattern of LV diastolic filling. The tricuspid valve is fails to coapt, severe tricuspid regurgitation. The tricuspid regurgitant velocity is 3.1 m/s, the estimated right ventricular systolic pressure is 37 mmHg plus right atrial pressure. The pulmonic valve is normal. Trace pulmonary regurgitation. Masses, Effusion, Shunts There is small pericardial effusion. The inferior vena cava is dilated, respiratory size variation less than 50%. No left to right shunting was detected by limited color flow Doppler interrogation of the interatrial septum. MEASUREMENTS AND CALCULATIONS 2-D Measurements and LV Function: LVID (d) 5.4 cm LV FS% (2D) 27 % LVID (s) 4.0 cm LVOT diameter 2.5 cm IVS (d) 1.2 cm HR 88 bpm LVPW (d) 1.0 cm LA Vol index 42 ml/m2 Ao Sinus 4.3 cm RA Vol index 55 ml/m2 Ao Sinus ULN 4.2 cm * RA area 35 cm Asc Ao 4.3 cm RV Basal Diam 4.6 cm Asc Ao ULN 4.4 cm * LA 5.5 cm * Input BSA and age are outside of ranges, reported values correspond to BSA = 2.1 and Age = 80 Diastology: Mitral Tissue Doppler E Peak 1.0 m/s e', Septum 0.05 m/s DT 322 msec e', Lateral 0.07 m/s E/e' Average 16.62 Aortic Valve: Vmax 1.2 m/s CLAUDIA (V) 3.99 cm VTI 0.27 m CLAUDIA (I) 3.71 cm LVOT V max 1.0 m/s Max PG 5 mmHg LVOT VTI 0.21 m Mean PG 4 mmHg SV 100 ml Dim Index 0.77 SV index 42 ml/m CO 8.8 l/min CI 3.7 l/min/m Mitral Valve: MVA 2.4 cm MV P 1/2 93 msec Tricuspid Valve and estimated PA pressures: TR Vmax 3.1 m/s TAPSE 1.4 cm TR maxG 37 mmHg . This study was interpreted by an [facility] accredited facility. CC: [facility] ([facility]) [facility]. Final Procedure Note Reji Fenton MD - 07/08/[address] SHIVA MONIQUE : 1940 83 years Study Date: 07/08/2024 12:47:33 PM Gender: M BP: 136/70 mmHg Height: 183.00 cm BSA: 2.39 m Weight: 119.00 kg Tech: BRIAN Referring MD: EMIL HOLCOMB Site: [facility] Reading Location: Mobile-OP Patient Location: Outpatient. Procedure: 2D, Color Doppler and Spectral Doppler. Indication for study: Right heart failure due to left heart failure Cardiac Rhythm: Irregular.Study quality: Good. Final Impressions: 1. Normal LV size, normal global systolic function with an estimated EFof 55 - 60%. 2. Right ventricular cavity size is moderately enlarged, global systolicRV function is moderately reduced. 3. Severe bi-atrial enlargement. 4. The mitral valve is normal, mild to moderate mitral regurgitation. 5. Tricuspid valve is non coapting, severe tricuspid regurgitation. 6. Dilated sinus of Valsalva, diameter of 4.3 cm (upper limit of normalfor age, sex, and BSA is 4.2 cm*), Height Index 2.35 cm/m. 7. Small pericardial effusion. Comparison Compared to prior exam of 12/04/21: -The RV is larger w/ worse function and the degree of TR has increased Chamber Sizes and Function Normal left ventricular size, moderately increased wall thickness, normalglobal systolic function with an estimated EF of 55 - 60%. No restingregional wall motion abnormality visualized. Left atrial size is severelyenlarged. Right ventricular cavity size is moderately enlarged, globalsystolic RV function is moderately reduced. The right atrium is severelyenlarged. Right atrial volume index is 55 ml/m . Right atrial area is 35cm . The pulmonary artery is of normal size and origin. The sinus ofValsalva is dilated. The ascending aorta is normal for age/sex/bsa. Valves, RV Pressures and Diastolic Function The aortic valve is normal in structure and trileaflet, no stenosis andtrivial regurgitation. The mitral valve is normal in structure, mild tomoderate mitral regurgitation. Indeterminate pattern of LV diastolicfilling. The tricuspid valve is fails to coapt, severe tricuspidregurgitation. The tricuspid regurgitant velocity is 3.1 m/s, theestimated right ventricular systolic pressure is 37 mmHg plus right atrialpressure. The pulmonic valve is normal. Trace pulmonary regurgitation. Masses, Effusion, Shunts There is small pericardial effusion. The inferior vena cava is dilated,respiratory size variation less than 50%. No left to right shunting wasdetected by limited color flow Doppler interrogation of the interatrialseptum. MEASUREMENTS AND CALCULATIONS 2-D Measurements and LV Function: LVID (d) 5.4 cm LV FS% (2D) 27% LVID (s) 4.0 cm LVOT diameter2.5 cm IVS (d) 1.2 cm HR 88bpm LVPW (d) 1.0 cm LA Vol index 42ml/m2 Ao Sinus 4.3 cm RA Vol index 55ml/m2 Ao Sinus ULN 4.2 cm * RA area 35cm Asc Ao 4.3 cm RV Basal Diam4.6 cm Asc Ao ULN 4.4 cm * LA 5.5 cm * Input BSA and age are outside of ranges, reported values correspond to BSA = 2.1 and Age = 82 Diastology: Mitral Tissue Doppler E Peak 1.0 m/s e', Septum 0.05 m/s DT 322 msec e', Lateral 0.07 m/s E/e' Average 16.62 Aortic Valve: Vmax 1.2 m/s CLAUDIA (V) 3.99 cm VTI 0.27 m CLAUDIA (I) 3.71 cm LVOT V max 1.0 m/s Max PG 5 mmHg LVOT VTI 0.21 m Mean PG 4 mmHg SV 100 ml Dim Index 0.77 SV index 42 ml/m CO 8.8 l/min CI 3.7 l/min/m Mitral Valve: MVA 2.4 cm MV P 1/2 93 msec Tricuspid Valve and estimated PA pressures: TR Vmax 3.1 m/s TAPSE 1.4 cm TR maxG 37 mmHg . This study was interpreted by an [facility] accredited facility. CC: [facility] (med records) [facility]. Final us Emil Holcomb MD ECHO ORD Final Result from Last 3 Months Insurance MEDICARE PART B HB ONLY MEDICARE PART A HB ONLY BLUE CROSS SYCUAN BLUE MR PB ONLY Advance Directives * Full Code (Latest Code Status on File) Date Activated Date Inactivated Comments 11/28/2007 8:43 PM 11/29/2007 5:18 PM Care Teams Security Operations Analyst Relationship Specialty Start Date End Date Emil Holcomb MD [address] [place] [address] PCP - General Internal Medicine 09/07/18 Fuentes Romero MD [address] [address] Cardiology - CHF Cardiovascular Disease 01/13/19 Nurses, Advanced Heart Failure [address] [address] Advanced Heart Failure/Transplant Card 01/13/19
--- OUTSIDE RECORDS SUMMARY | 2024-08-30 02:20 | XMS_ITS | Encounter Summary ---
Author Organization [place] Address [facility] [place] [address] Care Team Providers Care Standpipe Tender Name Role Phone Giuliano Emmanuel Meier MD Unavailable [phone] Anthony Leyva MD Unavailable [phone] Anthony Leyva MD Unavailable [phone] Evaristo Stack TRACK COACH Unavailable [phone] Emil Cope MD Primary Care Provider Anthony Mazariegos MD Unavailable [phone] Nallely Saravia MD Unavailable Ashleigh Casillas APRN TRACK COACH Unavailable [phone] Reason for Visit * Reason Comments Medication Refill Encounter Details Date Type Department Care Team (Late st Contact Info) Description 02/17/2023 Refill [facility] [address] [facility] [address] [place] [phone] Anthony Mazariegos MD 1600 [facility] 200 [place] [address] Medication Refill Social History Tobacco [...] on file Legal Sex Male 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 Gender Identity Not on file Sexual Orientation Not on file documented as of this encounter Plan of Treatment Upcoming Encounters Date Type Department Care Team (Latest Contact Info) Description 09/30/2024 7:30 AM CDT Appointment [address] [phone] Roman Krishnamurthy MD [address] [facility] [address] [address] [place], [place] [id number] 09/30/2024 10:30 AM CDT Hospital Encounter [address] [phone] Reese Lazaro MD [address] [id number] Other ill-defined heart diseases 09/30/2024 10:30 AM CDT - 09/30/2024 12:30 PM CDT Surgery [address] [phone] Reese Lazaro MD [address] [id number] Coronary Angiogram Scheduled Procedures Name Priority Associated Diagnoses Date/Ti me Percutaneous Coronary Intervention Other ill-defined heart diseases 09/30/2024 10:30 AM CDT documented as of this encounter Visit Diagnoses Not on filedocumented in this encounter Additional Health Concerns Infection Onset Date Last Indicated Resolved Time Rule Out COVID-19 07/17/2024 07/17/2024 07/17/2024 11:23 AM CDT documented as of this encounter Care Teams Standpipe Tender Relationship Specialty Start Date End Date Emil Cope MD [facility] [address] [place] [address] PCP - General Emergency Medicine 09/30/22 Emmanuel Nobles MD Hematology 02/07/22 Anthony Leyva MD [address] [place] [address] Gastroenterology 02/07/22 Anthony Leyva MD [address] [place] [address] Assigned Gastroenterology Provider 04/12/22 10/22/23 Evaristo Stack TRACK COACH [address] [place] [address] [address] [place] [address] Assigned Cancer Care Provider 07/26/22 06/22/23 Anthony Mazariegos MD [address] [place] [address] [address] [place] [address] Assigned Heart and Vascular Provider 01/17/23 Nallely Saravia MD [address] [place] [address] Assigned Cancer Care Provider 06/23/23 07/21/24 Ashleigh Casillas APRN TRACK COACH [address] [place] [address] [facility] [place] [address] Assigned Cancer Care Provider 07/22/24 documented as of this encounter
--- OUTSIDE RECORDS SUMMARY | 2024-08-30 02:20 | XMS_ITS | Encounter Summary ---
Author Organization [place] Address [address] [facility] [place] [address] Care Team Providers Care Automated Cutting Machine Operator Name Role Phone Emmanuel Nobles MD Unavailable [phone] Anthony Leyva MD Unavailable [phone] Emil Cope MD Primary Care Provider Anthony Mazariegos MD Unavailable Ashleigh Casillas APRN ELECTRICAL TECHNICIAN Unavailable [phone] Reason for Visit * Reason Onset Date Comments Patient Request 08/19/2024 Encounter Details Date Type Department Care Team (Late st Contact Info) Description 08/19/[address] 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 She reports iron infusions can be done at [facility]. If after the 08/29 appt we are still proceeding with hem/onc appt which it appears is needed. Will defer if orders can be sent from Dr. Jalloh to [facility] to their team. No further questions-cj documented in this encounter Plan of Treatment Upcoming Encounters Date Type Department Care Team (Latest Contact Info) Description 09/30/2024 7:30 AM CDT Appointment [facility] [address] [place] [phone] Roman Krishnamurthy MD [address] [facility] [address] [place], [place] [phone] 09/30/2024 10:30 AM CDT Hospital Encounter [address] [phone] Reese Lazaro MD [address] [place] [id number] Other ill-defined heart diseases 09/30/2024 10:30 AM CDT - 09/30/2024 12:30 PM CDT Surgery [address] [phone] Reese Lazaro MD [address] [place] [id number] Coronary Angiogram Scheduled Procedures Name Priority Associated Diagnoses Date/Ti me Percutaneous Coronary Intervention Other ill-defined heart diseases 09/30/2024 10:30 AM CDT documented as of this encounter Visit Diagnoses Not on filedocumented in this encounter Care Teams Automated Cutting Machine Operator Relationship Specialty Start Date End Date Emil Cope MD [facility] [address] [place] [address] PCP - General Emergency Medicine 09/30/22 Emmanuel Nobles MD Hematology 02/07/22 Anthony Leyva MD [address] [place] [address] Gastroenterology 02/07/22 Anthony Mazariegos MD [address] [facility] [address] [place] [address] Assigned Heart and Vascular Provider 01/17/23 Ashleigh Casillas APRN [facility] [address] [place] [address] [facility] [place] [address] Assigned Cancer Care Provider 07/22/24 documented as of this encounter
--- OUTSIDE RECORDS SUMMARY | 2024-08-30 02:20 | XMS_ITS | Encounter Summary ---
Author Organization [place] Address [address] [place] [address] Care Team Providers Care Bsa Officer Name Role Phone Mateus Bergman MD Primary Care Provider Unava ilable System, Provider Not In Primary Care Provider Un available Anthony Mazariegos MD Primary Care Provider + [phone] Rocio Sellers NP Unavailable [phone] Emmanuel Nobles MD Unavailable [phone] Anthony Leyva MD Unavailable + [phone] Shaila Mota APRN PRINCIPAL IOS DEVELOPER Unavailable Unavailable Anthony Mazariegos MD Unavailable [phone] Verona Mclain APRN PRINCIPAL IOS DEVELOPER Unavailable Anthony Leyva MD Unavailable + [phone] Shaila Mota APRN PRINCIPAL IOS DEVELOPER Unavailable Unavailable Evaristo Stack PRINCIPAL IOS DEVELOPER Unavailable [phone] Anthony Mazariegos MD Unavailable [phone] Shaila Mota APRN PRINCIPAL IOS DEVELOPER Unavailable Unavailable Emil Cope MD Primary Care Provider Anthony Mazariegos MD Unavailable [phone] Nallely Saravia MD Unavailable Ashleigh Casillas APRN PRINCIPAL IOS DEVELOPER Unavailable [phone] Reason for Visit * Reason Comments Call Center Generated Orders Encounter Details Date Type Department Care Team (Late st Contact Info) Description 07/20/2015 Orders Only [facility] [address] [address] Arcadio Robles, DO [address] [place] [phone] Social History Tobacco Use Types Packs/Day Years Used Date Smoking Tobacco: Never Smokeless Tobacco: Never Alcohol Use Standard Drinks/Week Comments Yes 0 (1 standard drink = 0.6 oz pur e alcohol) very rare Sex and Gender Information Value Date Recorded Sex Assigned at Not on file 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 Gender Identity Not on file Sexual Orientation Not on file documented as of this encounter Plan of Treatment Upcoming Encounters Date Type Department Care Team (Latest Contact Info) Description 09/30/2024 7:30 AM CDT Appointment [address] [address] Roman Krishnamurthy MD [address] [facility] [address] [place], [place] [id number] 09/30/2024 10:30 AM CDT Hospital Encounter [address] [phone] Reese Lazaro MD [address] [address] Other ill-defined heart diseases 09/30/2024 10:30 AM CDT - 09/30/2024 12:30 PM CDT Surgery [address] [phone] Reese Lazaro MD [address] [id number] Coronary Angiogram Scheduled Procedures Name Priority Associated Diagnoses Date/Ti me Percutaneous Coronary Intervention Other ill-defined heart diseases 09/30/2024 10:30 AM CDT documented as of this encounter Visit Diagnoses Not on filedocumented in this encounter Additional Health Concerns Infection Onset Date Last Indicated Resolved Time Rule Out COVID-19 07/17/2024 07/17/2024 07/17/2024 11:23 AM CDT documented as of this encounter Care Teams Bsa Officer Relationship Specialty Start Date End Date Mateus Bergman MD PCP - General 10/24/10 12/18/21 System, Provider Not In PCP - General Clinic 12/19/21 01/13/22 Anthony Mazariegos MD [address] [facility] [address] [place] [address] PCP - General Cardiovascular Disease 01/14/22 3 Emil Cope MD [facility] [address] [place] [address] PCP - General Emergency Medicine 09/30/22 Rocio Sellers NP [place] [address] Assigned Heart and Vascular Provider 01/11/22 02/07/22 Emmanuel Nobles [place] [address] Hematology 02/07/22 Anthony Leyva MD [address] [place] [address] Gastroenterology 02/07/22 Shaila Mota APRN PRINCIPAL IOS DEVELOPER Assigned Heart and Vascular Provider 02/08/22 03/07/22 Anthony Mazariegos MD [address] [facility] [address] [place] [address] Assigned Heart and Vascular Provider 03/08/22 05/16/22 Verona Mclain APRN PRINCIPAL IOS DEVELOPER [address] [place] [address] Assigned Cancer Care Provider 04/05/22 07/25/22 Anthony Leyva MD [address] [place] [address] Assigned Gastroenterology Provider 04/12/22 10/22/23 Shaila Mota APRN PRINCIPAL IOS DEVELOPER [address] [place] [address] Assigned Heart and Vascular Provider 05/17/22 07/18/22 Evaristo Stack, PRINCIPAL IOS DEVELOPER [address] [place], [place] [address] [address] [place] [address] Assigned Cancer Care Provider 07/26/22 06/22/23 Anthony Mazariegos MD [address] [address] Assigned Heart and Vascular Provider 07/19/22 09/19/22 Shaila Mota APRN PRINCIPAL IOS DEVELOPER Assigned Heart and Vascular Provider 09/20/22 01/16/23 Anthony Mazariegos MD [address] [address] Assigned Heart and Vascular Provider 01/17/23 Nallely Saravia MD [address] [place] [address] Assigned Cancer Care Provider 06/23/23 07/21/24 Ashleigh Casillas APRN [facility] [address] [place] [address] [place] [address] Assigned Cancer Care Provider 07/22/24 documented as of this encounter
--- OUTSIDE RECORDS SUMMARY | 2024-08-30 02:20 | XMS_ITS | Encounter Summary ---
Author Organization [place] Address [address] [place] [address] Care Team Providers Care Metal Products Fabricator Assembler Name Role Phone HenryciraEmmanuel MD Unavailable [phone] Anthony Leyva MD Unavailable [phone] Eiml Cope MD Primary Care Provider Anthony Mazariegos MD Unavailable Nallely Saravia MD Unavailable Ashleigh Casillas APRN [facility] Unavailable Reason for Visit * Reason Comments Medication Refill Encounter Details Date Type Department Care Team (Late st Contact Info) Description 02/10/2024 [place] [place] [id number] [facility] [address] [place] [address] Anthony Mazariegos MD [address] [facility] [address] [place] [address] Medication Refill Social History Tobacco Use Types Packs/Day Years Used Date Smoking Tobacco: Never Smokeless Tobacco: Never Alcohol Use Standard Drinks/Week Comments Yes 0 (1 standard drink = 0.6 oz pur e alcohol) very rare PHQ-2 Answer Date Recorded PHQ-2 Score 0 02/12/2024 Adolescent Education Answer Date Record ed Getting School Help Needed Not on file 12/14 Sex and Gender Information Value Date Recorded Sex Assigned at Not on file 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 Gender Identity Not on file Sexual Orientation Not on file documented as of this encounter Plan of Treatment Upcoming Encounters Date Type Department Care Team (Latest Contact Info) Description 09/30/2024 7:30 AM CDT Appointment [facility] [address] [place] [address] Roman Krishnamurthy MD [address] [facility] [address] [place], [place] [phone] 09/30/2024 10:30 AM CDT Hospital Encounter [address] [phone] Reese Lazaro MD [address] [place] [address] Other ill-defined heart diseases 09/30/2024 10:30 AM CDT - 09/30/2024 12:30 PM CDT Surgery [address] [phone] Reese Lazaro MD [address] [place] [address] Coronary Angiogram Scheduled Procedures Name Priority Associated Diagnoses Date/Ti me Percutaneous Coronary Intervention Other ill-defined heart diseases 09/30/2024 10:30 AM CDT documented as of this encounter Visit Diagnoses Diagnosis Hypokalemia Hypopotassemia Other ill-defined heart diseases Other ill-defined heart diseases documented in this encounter Additional Health Concerns Infection Onset Date Last Indicated Resolved Time Rule Out COVID-19 07/17/2024 07/17/2024 07/17/2024 11:23 AM CDT documented as of this encounter Care Teams Metal Products Fabricator Assembler Relationship Specialty Start Date End Date Emil Cope MD [facility] [address] [place] [address] PCP - General Emergency Medicine 09/30/22 Emmanuel Nobles MD Hematology 02/07/22 Anthony Leyva MD [address] [place] [address] Gastroenterology 02/07/22 Anthony Mazariegos MD [address] [facility] [address] [place] [address] Assigned Heart and Vascular Provider 01/17/23 Nallely Saravia MD [address] [place] [address] Assigned Cancer Care Provider 06/23/23 07/21/24 Ashleigh Casillas, ENGRAVER APPRENTICE DECORATIVE MEDICAL TRANSCRIPTIONIST [address] [place] [address] [address] [place], [place] [id number] Assigned Cancer Care Provider 07/22/24 documented as of this encounter
--- OUTSIDE RECORDS SUMMARY | 2024-08-30 02:20 | XMS_ITS ---
Author Organization [place] Address [facility] [place] [address] Care Team Providers Care Digital Watch Assembler Name Role Phone Emmanuel Nobles MD Unavailable [phone] Anthony Leyva MD Unavailable [phone] Emil Cope MD Primary Care Provider Anthony Mazariegos MD Unavailable Ashleigh Casillas APRN SPINAL SURGEON Unavailable Transitional Care Management Status:Closed (Closed) Start date:07/21/2024 Enrollment date:07/21/2024 End date:08/04/2024 Close reason:Goals met Continued Care and Services Coordination
--- OUTSIDE RECORDS SUMMARY | 2024-08-30 02:20 | XMS_ITS | Encounter Summary ---
Author Organization [place] Address [facility] [address] Care Team Providers Care Jammer Operator Name Role Phone HenryciraEmmanuel MD Unavailable [phone] Anthony Leyva MD Unavailable + [phone] Anthony Leyva MD Unavailable Emil Cope MD Primary Care Provider Anthony Mazariegos MD Unavailable Nallely Saravia MD Unavailable Ashleigh Casillas APRN [facility] Unavailable [phone] Encounter Details Date Type Department Care Team (Late st Contact Info) Description 10/02/2023 [facility] [address] [facility] [address] [place] [phone] Reported, Patient Social History Tobacco Use Types Packs/Day Years [...] on file 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 Gender Identity Not on file Sexual Orientation Not on file documented as of this encounter Plan of Treatment Upcoming Encounters Date Type Department Care Team (Latest Contact Info) Description 09/30/2024 7:30 AM CDT Appointment [address] [address] Roman Krishnamurthy MD [address] [facility] [address] [place], [place] [id number] 09/30/2024 10:30 AM CDT Hospital Encounter [address] [phone] Reese Lazaro MD [address] [id number] Other ill-defined heart diseases 09/30/2024 10:30 AM CDT - 09/30/2024 12:30 PM CDT Surgery [address] [phone] Reese Lazaro MD [address] [id number] Coronary Angiogram Scheduled Procedures Name Priority Associated Diagnoses Date/Ti me Percutaneous Coronary Intervention Other ill-defined heart diseases 09/30/2024 10:30 AM CDT documented as of this encounter Procedures Procedure Name Priority Date/Time Associated Diagnosis Comments LAB RESULT - HIM SCAN Routine 10/01/2023 2:26 PM CDT documented in this encounter Results * Lab Result - HIM Scan (10/01/2023 2:26 PM CDT) us Patient Reported MH NON-BEAKER LAB TESTING Final Result documented in this encounter Visit Diagnoses Not on filedocumented in this encounter Additional Health Concerns Infection Onset Date Last Indicated Resolved Time Rule Out COVID-19 07/17/2024 07/17/2024 07/17/2024 11:23 AM CDT documented as of this encounter Care Teams Jammer Operator Relationship Specialty Start Date End Date Emil Cope MD [facility] [address] [place] [address] PCP - General Emergency Medicine 09/30/22 Emmanuel Nobles MD Hematology 02/07/22 Anthony Leyva MD [address] [place] [address] Gastroenterology 02/07/22 Anthony Leyva MD [address] [place] [address] Assigned Gastroenterology Provider 04/12/22 10/22/23 Anthony Mazariegos MD [address] [place] [address] [address] [place] [address] Assigned Heart and Vascular Provider 01/17/23 Nallely Saravia MD [address] [place] [address] Assigned Cancer Care Provider 06/23/23 07/21/24 Ashleigh Casillas APRN GRAPPLER [address] [place] [address] [facility] [place] [address] Assigned Cancer Care Provider 07/22/24 documented as of this encounter
--- OUTSIDE RECORDS SUMMARY | 2024-08-30 02:20 | XMS_ITS | Encounter Summary ---
Author Organization [place] Address [address] [place] [address] Care Team Providers Care End Finder Forming Department Name Role Phone Emmanuel Nobles MD Unavailable [phone] Anthony Leyva MD Unavailable [phone] Emil Cope MD Primary Care Provider Anthony Mazariegos MD Unavailable Ashleigh Casillas APRN SENIOR BUSINESS CONSULTANT Unavailable [phone] Reason for Referral * CV Testing (Routine) - Pending Review Specialty Diagnoses / Procedures Referred By Contjohn t Referred To Contact Diagnoses (HFpEF) heart failure with preserved ejection fraction (H) Heart valve disease Procedures Echocardiogram MELE ZZC ECHO HEART,TRANSESOPHAGEAL,COMPLETE ZZHC ECHO MELE, COMPLETE W CONTRAST ZZHC ECHO MELE, COMPLETE W/O CONTRAST ZZC ECHO TRANSESOPH,YENNY ANOM,COMPLETE ZZHC DOPPLER ECHO PULSED, COMPLETE ZZHC DOPPLER ECHO PULSED, F/U OR LIMITED ZZHC DOPPLER ECHO COLOR FLOW VELOCITY MAP ZZH ECHO TRANSESOPHAGEAL (MELE) ZZHC STATISTIC IV PUSH SINGLE INITIAL SUBSTANCE CA ECHO HEART,TRANSESOPHAGEAL,COMPLETE CA DOPPLER ECHO PULSED, COMPLETE CA DOPPLER ECHO PULSED, F/U OR LIMITED CA DOPPLER ECHO COLOR FLOW VELOCITY MAP CA ECHO TRANSESOPH,YENNY ANOM,COMPLETE CA ECHO TRANSESOPHAGEAL (MELE) HC DOPPLER ECHO PULSED, COMPLETE HC DOPPLER ECHO PULSED, F/U OR LIMITED HC DOPPLER ECHO COLOR FLOW VELOCITY MAP HC STATISTIC IV PUSH SINGLE INITIAL SUBSTANCE HC ECHO TRANSESOPHAGEAL (MELE) HC ECHO MELE, COMPLETE W CONTRAST HC ECHO MELE, COMPLETE W/O CONTRAST Roman Krishnamurthy MD [address] [facility] [address] [place] [address] Phone: tel: fax: Referral ID Status Reason Start Date Expiration Date V isits Requested Visits Authorized [id number] Pending Review 08/23/2024 08/23/2025 1 1 * (Routine) - Pending Review Specialty Diagnoses / Procedures Referred By Contac t Referred To Contact Diagnoses Other ill-defined heart diseases Procedures Case Request Quitline Counselor: Coronary Angiogram, Right Heart Catheterization, Percutaneous Coronary Intervention Roman Krishnamurthy MD [address] [facility] [address] [place] [address] Phone: tel: fax: Referral ID Status Reason Start Date Expiration Date V isits Requested Visits Authorized [id number] Pending Review 08/22/2024 08/22/2025 1 1 Reason for Visit * Reason Onset Date Comments valve clinic referral- TR 08/09/2024 Encounter Details Date Type Department Care Team (Late st Contact Info) Description 08/09/2024 Telephone [facility] [address] [facility] [address] [place] [address] Kim Baldwin RN valve clinic referral- TR Social History Tobacco Use Types Packs/Day Years [...] in an abandoned building, in an overnight skilled nursing, or couch-surfing.) Yes 07/17/2024 Are you worried [...] on file 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 Requested call back. Kim Baldwin RN on 08/29/2024 at 9:06 AM * Telephone Encounter - Kim Baldwin RN - 08/26/2024 8:58 AM CDT Called patient to ensure he is able to make his scheduled date for procedural work up done and to see when his PCP pre op appt is scheduled and where he will be seen. No answer. Left VM for patient requesting call back. Kim Baldwin RN on 08/26/2024 at 8:59 AM * Telephone Encounter - Kim Baldwin RN - 08/26/2024 8:58 AM CDT ===View-only below this line=== ----- Message ----- From: Jinny Fields Sent: 08/23/2024 2:11 PM CDT To: Kim Baldwin RN All set up for 09/30-admit at 730 for MELE with [facility] and cath with RA Patient is unclear if this will work, he needs to discuss with his kids but [facility]. [facility] Thursday so that is why we are out a little ways. He will plan to go to his PCP for a preop. * Telephone Encounter - Kim Baldwin RN - 08/22/2024 1:51 PM CDT ===View-only below this line=== ----- Message ----- From: Roman Krishnamurthy MD Sent: 08/22/2024 1:32 PM CDT To: Kim Baldwin RN; Nell Connors RN; Zahra* Can do that potentially or, if too difficult to arrange given my time in the office next couple of weeks, can start with studies ----- Message ----- From: Kim Baldwin RN Sent: 08/22/2024 12:59 PM CDT To: Nell Connors RN; Jinny Fields; Roman Ray* You want valve consult virtually first, then can do the in person day of cath/MELE? ----- Message ----- * Telephone Encounter - Kim Baldwin RN - 08/22/2024 9:23 AM CDT ===View-only below this line=== ----- Message ----- From: Anthony Mazariegos MD Sent: 08/22/2024 7:00 AM CDT To: Estela Adam; Kim Baldwin RN; Gen Alba Roman, Patient does have some hematologic issues but I think his tricuspid valve is giving him difficulty.We talked about setting him up for a MELE, heart cath, and structural consult on the same day as he has difficulties getting to the [facility]. He has significant elevation in BUN and creatinine given the diuretic therapy necessary to keep his edema at bay. We could probably talk him into seeing 1 of you as a consult first if that would be preferable. If that is preferable, we can do that in parallel with a hematologic visit. Thanks for your advice, Anthony * Telephone Encounter - Kim Baldwin RN - 08/17/2024 3:48 PM CDT ===View-only below this line=== ----- Message ----- From: Gen Burnham Sent: 08/15/2024 8:31 AM CDT To: Estela Adam; Kim Baldwin RN; Anthony * I spoke with patient to schedule but he is not really understanding of everything right now why he needs to come in for a hematology oncology visit. Patient would like to wait to discuss with his sonfirst and call back to schedule. Not sure if a nurse coordinator can reach out to patient to explain more to patient. Gen ----- Message ----- From: Ashleigh Casillas APRN CNP Sent: 08/12/2024 4:43 PM CDT To: Estela Adam; Kim Baldwin RN; Anthony * The patient was instructed to establish care here in [place] with Dr. Jalloh this coming fall, but we can get him in sooner for evaluation. We do have a clinic in [place] if that is an easier option for him but he would have to chose a provider at that location to establish care with. I'm including our scheduling team to assist with moving his oncology visit up. I appreciate your communication. Ashleigh Casillas ----- Message ----- From: Anthony Mazariegos MD Sent: 08/10/2024 12:25 PM CDT To: Estela Adam; Kim Bladwin RN; Ashleigh Manrique Dear Ashleigh Casillas, I saw Mr. Ngo in the heart clinic yesterday. He was recently hospitalized with fluid overload and feels better now but still has some mild peripheral edema. His hemoglobin has been gradually dropping and was over 12, 9 months ago when his now down to 8.7. Ferritin was normal at 215. Will contemplating a percutaneous procedure in his tricuspid valve but also wonder if his relative anemia is contributing to some of his symptomatology. He has received iron transfusions in the past but his ferritin seems to be normal. He also has a myelodysplastic syndrome diagnosed by your group and wondering if that is more of an issue now. Wondering if he did get your advice. He is somewhat reticent to coming up from [place] for clinic appointments but may be a good idea for a visit in hematology oncology clinic? Thank you for your advice. * Telephone Encounter - Kmi Baldwin RN - 08/10/2024 7:48 AM CDT ===View-only below this line=== ----- Message ----- From: Roman Krishnamurthy MD Sent: 08/10/2024 7:39 AM CDT To: Kim Baldwin RN Sounds like anemia w/up ongoing. Let's see in clinic and discuss first * Telephone Encounter - Kim Baldwin RN - 08/09/2024 5:21 PM CDT Will wait to schedule patient and check into progress on monitoring/follow up with anemia in a couple of weeks. Kim Baldwin RN on 08/09/2024 at 5:21 PM * Telephone Encounter - Kim Baldwin RN - 08/09/2024 5:18 PM CDT ===View-only below this line=== ----- Message ----- From: Anthony Mazariegos MD Sent: 08/09/2024 5:15 PM CDT To: Estela Adam; Reese Lazaro MD; Roman Millan* Valve team, Labs a little bit off today with hemoglobin drifting down and he has known myelodysplastic syndromeand iron deficiency in the past. We are checking a ferritin and we will message the hematology service to see if they would like to do some iron infusions. Also has some elevation in his BUN given recent diuresis and increased dose of diuretics. Will continue to follow this as well. I do not think it is good to schedule him just yet but we will work on the anemia and keep you posted. Anthony Griffith * Telephone Encounter - Kim Baldwin RN - 08/09/2024 5:13 PM CDT Msg sent to Dr. Krishnamurthy to verify if he would prefer MELE/RHC first, and then see patient in clinic if he's a good candidate, or to see patient first to discuss work up process. Kim Baldwin RN on 08/09/2024 at 5:13 PM * Telephone Encounter - Kim Baldwin RN - 08/09/2024 5:13 PM CDT ===View-only below this line=== ----- Message ----- From: Roman Krishnamurthy MD Sent: 08/09/2024 1:48 PM CDT To: Reese Lazaro MD; Anthony Mazariegos MD; Tyron Cruz, I agree, it would be nice to do MELE and angio/RHC on the same day ideally - we generally try to arrange that anyway. Copying valve team to help move things forward. Thx! Roman ----- Message ----- From: Anthony Mazariegos MD Sent: 08/09/2024 1:34 PM CDT To: Reese Lazaro MD; MD Reese Carreno and Roman, This patient has known heart failure with preserved ejection fraction but also has developed worsening tricuspid insufficiency with difficulties with fluid overload, peripheral edema that required hospitalization. He was diuresed about 15 pounds and feels better but still has shortness of breath. Transthoracic echocardiogram showed moderately severe to severe tricuspid insufficiency. I am wondering if he would be a candidate for a tricuspid clip and what studies you would need prior to that. He is very reticent to coming back and forth multiple times and I told him we might buildarrange some tests that we could group together and have him seen at the same time such as transesophageal echocardiogram followed by right heart cath and a consultation thereafter. [facility]? Would appreciate your thoughts. Thanks, Anthony documented in this encounter Plan of Treatment Upcoming Encounters Date Type Department Care Team (Latest Contact Info) Description 09/30/2024 7:30 AM CDT Appointment [address] [address] Roman Krishnamurthy MD [address] [facility] [address] [place] [address] 09/30/2024 10:30 AM CDT Hospital Encounter [facility] [address] [address] Reese Lazaro MD [address] [address] Other ill-defined heart diseases 09/30/2024 10:30 AM CDT - 09/30/2024 12:30 PM CDT [facility] [address] [place] [address] Reese Lazaro MD [address] [place] [address] Coronary Angiogram Scheduled Orders Name Type Priority Associated Diagnoses Orde r Schedule Echocardiogram MELE Echocardiography Routine (HFpEF) heart failure with preserved ejection fraction (H) Heart valve disease Expected: 08/23/2024 (Approximate), Expires: 08/23/2025 Scheduled Procedures Name Priority Associated Diagnoses Date/Ti me Percutaneous Coronary Intervention Other ill-defined heart diseases 09/30/2024 10:30 AM CDT documented as of this encounter Visit Diagnoses Diagnosis Other ill-defined heart diseases- Primary Tricuspid regurgitation Diseases of tricuspid valve (HFpEF) heart failure with preserved ejection fraction (H) Heart valve disease Endocarditis, valve unspecified, unspecified cause Other ill-defined heart diseases Other ill-defined heart diseases documented in this encounter Care Teams End Finder Forming Department Relationship Specialty Start Date End Date Emil Cope MD [facility] [address] [place] [address] PCP - General Emergency Medicine 09/30/22 Emmanuel Nobles MD Hematology 02/07/22 Anthony Leyva MD [address] [place] [address] Gastroenterology 02/07/22 Anthony Mazariegos MD [address] [place] [address] [address] [place] [address] Assigned Heart and Vascular Provider 01/17/23 Ashleigh Casillas APRN [facility] [address] [place] [address] [address] [place] [address] Assigned Cancer Care Provider 07/22/24 documented as of this encounter
--- OUTSIDE RECORDS SUMMARY | 2024-08-30 02:20 | XMS_ITS | Encounter Summary ---
Author Organization [place] Address [address] [facility] [place] [address] Care Team Providers Care Yeast Washer Name Role Phone Emmanuel Nobles MD Unavailable [phone] Anthony Leyva MD Unavailable [phone] Emil Cope MD Primary Care Provider Anthony Mazariegos MD Unavailable Nallely Saravia MD Unavailable Ashleigh Casillas APRN [facility] Unavailable Encounter Details Date Type Department Care Team (Late st Contact Info) Description 06/20/2024 [facility] Only [facility] [place] [address] [facility] [address] [place] [phone] Reported, Patient Social History Tobacco Use Types [...] you got money to buy more? No 02/17/2024 Within the past 12 months, d id the food you bought just not last and you didn t have money to get more? No 02/17/2024 Housing Stability Answer Date Recorded Do you have housing? (Milind ortiz is defined as stable permanent housing and does not include staying outside in a car, in a tent, in an abandoned building, in an overnight prison, or couch-surfing.) Yes 02/17/2024 Are you worried about losing your housing? No 02/17/2024 Financial Resource Strain Answer Date R ecorded Within the past 12 months, h ave you or your family members you live with been unable to get utilities (heat, electricity) when it was really needed? No 02/17/2024 Transportation Needs Answer Date Record ed Within the past 12 months, h as lack of transportation kept you from medical appointments, getting your medicines, non-medical meetings or appointments, work, or from getting things that you need? No 02/17/2024 Interpersonal Safety Answer Date Record ed Do you feel physically and e motionally safe where you currently live? Yes 02/17/2024 Within the past 12 months, h ave you been hit, slapped, kicked or otherwise physically hurt by someone? No 02/17/2024 Within the past 12 months, h ave you been humiliated or emotionally abused in other ways by your partner or ex-partner? 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 Gender Identity Not on file Sexual Orientation Not on file documented as of this encounter Plan of Treatment Upcoming Encounters Date Type Department Care Team (Latest Contact Info) Description 09/30/2024 7:30 AM CDT Appointment [address] [phone] Roman Krishnamurthy MD [address] [facility] [address] [place], [place] [id number] 09/30/2024 10:30 AM CDT Hospital Encounter [facility] [address] [place] [phone] Reese Lazaro MD [address] [id number] Other ill-defined heart diseases 09/30/2024 10:30 AM CDT - 09/30/2024 12:30 PM CDT [facility] [address] [place] [phone] Reese Lazaro MD [address] [facility] [place] [address] Coronary Angiogram Scheduled Procedures Name Priority Associated Diagnoses Date/Ti me Percutaneous Coronary Intervention Other ill-defined heart diseases 09/30/2024 10:30 AM CDT documented as of this encounter Procedures Procedure Name Priority Date/Time Associated Diagnosis Comments LAB RESULT - HIM SCAN Routine 05/24/2024 8:08 AM CDT documented in this encounter Results * Lab Result - HIM Scan (05/24/2024 8:08 AM CDT) us Patient Reported MH NON-BEAKER LAB TESTING Final Result documented in this encounter Visit Diagnoses Not on filedocumented in this encounter Additional Health Concerns Infection Onset Date Last Indicated Resolved Time Rule Out COVID-19 07/17/2024 07/17/2024 07/17/2024 11:23 AM CDT documented as of this encounter Care Teams Yeast Washer Relationship Specialty Start Date End Date Emil Cope MD [facility] [address] [place] [address] PCP - General Emergency Medicine 09/30/22 Emmanuel Nobles MD Hematology 02/07/22 Anthony Leyva MD [address] [place] [address] Gastroenterology 02/07/22 Anthony Mazariegos MD [address] [facility] [address] [place] [address] Assigned Heart and Vascular Provider 01/17/23 Nallely Saravia MD [address] [place] [address] Assigned Cancer Care Provider 06/23/23 07/21/24 Ashleigh Casillas APRN [facility] [address] [place] [address] [address] [place] [address] Assigned Cancer Care Provider 07/22/24 documented as of this encounter
--- OUTSIDE RECORDS SUMMARY | 2024-08-30 02:20 | XMS_ITS | Encounter Summary ---
Author Organization [place] Address [address] [facility] [place] [address] Care Team Providers Care Ground Instructor Basic Name Role Phone Anthony Mazariegos MD Primary Care Provider Emmanuel Nobles MD Unavailable [phone] Anthony Leyva MD Unavailable Anthony Mazariegos MD Unavailable Verona Mclain CERTIFIED MIDWIFE WEIGHER AND CHARGER Unavailable Anthony Leyva MD Unavailable [phone] Shaila Mota APRN WEIGHER AND CHARGER Unavailable Unavailable Evaristo Stack WEIGHER AND CHARGER Unavailable Anthony Mazariegos MD Unavailable Shaila Mota APRN WEIGHER AND CHARGER Unavailable Unavailable Emil Cope MD Primary Care Provider Anthony Mazariegos MD Unavailable [phone] Nallely Saravia MD Unavailable Ashleigh Casillas APRN WEIGHER AND CHARGER Unavailable [phone] Reason for Visit * Reason Comments Medication Refill Encounter Details Date Type Department Care Team (Late st Contact Info) Description 03/08/2022 [place] [id number] [facility] [address] [place] [address] Anthony Mazariegos MD [address] 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 No / Unsure 03/07/2022 12:03 PM LIBRARY TECHNOLOGY INSTRUCTOR documented as of this encounter Plan of Treatment Upcoming Encounters Date Type Department Care Team (Latest Contact Info) Description 09/30/2024 7:30 AM CDT Appointment [address] [phone] Roman Krishnamurthy MD [address] [facility] [address] [place] [address] 09/30/2024 10:30 AM CDT Hospital Encounter [address] [phone] Reese Lazaro MD [address] [id number] Other ill-defined heart diseases 09/30/2024 10:30 AM CDT - 09/30/2024 12:30 PM CDT Surgery [address] [phone] Reese Lazaro MD [address] [id number] Coronary Angiogram Scheduled Procedures Name Priority Associated Diagnoses Date/Ti me Percutaneous Coronary Intervention Other ill-defined heart diseases 09/30/2024 10:30 AM CDT documented as of this encounter Visit Diagnoses Diagnosis Chronic heart failure with preserved ejection fraction (H) Other ill-defined heart diseases Other ill-defined heart diseases documented in this encounter Additional Health Concerns Infection Onset Date Last Indicated Resolved Time Rule Out COVID-19 07/17/2024 07/17/2024 07/17/2024 11:23 AM CDT documented as of this encounter Care Teams Ground Instructor Basic Relationship Specialty Start Date End Date Anthony Mazariegos MD [address] [facility] [address] [place] [address] PCP - General Cardiovascular Disease 01/14/22 3 Emil Cope MD [facility] 2[facility] [address] [place] [address] PCP - General Emergency Medicine 09/30/22 Emmanuel Nobles MD [address] [address] Hematology 02/07/22 Anthony Leyva MD [address] [place] [address] Gastroenterology 02/07/22 Anthony Mazariegos MD [address] [address] Assigned Heart and Vascular Provider 03/08/22 05/16/22 Verona Mclain APRN WEIGHER AND CHARGER [address] [place] [address] Assigned Cancer Care Provider 04/05/22 07/25/22 Anthony Leyva MD [address] [place] [address] Assigned Gastroenterology Provider 04/12/22 10/22/23 Shaila Mota APRN WEIGHER AND CHARGER [address] [place] [address] Assigned Heart and Vascular Provider 05/17/22 07/18/22 Evaristo Stack, WEIGHER AND CHARGER [address] [place] [address] [address] [place] [address] Assigned Cancer Care Provider 07/26/22 06/22/23 Anthony Mazariegos MD [address] [facility] [address] [place] [address] Assigned Heart and Vascular Provider 07/19/22 09/19/22 Shaila Mota APRN WEIGHER AND CHARGER Assigned Heart and Vascular Provider 09/20/22 01/16/23 Anthony Mazariegos MD [address] [facility] [address] [place] [address] Assigned Heart and Vascular Provider 01/17/23 Nallely Saravia MD [address] [place] [address] Assigned Cancer Care Provider 06/23/23 07/21/24 Ashleigh Casillas APRN WEIGHER AND CHARGER [facility] [address] [place], [place] [phone] Assigned Cancer Care Provider 07/22/24 documented as of this encounter
--- OUTSIDE RECORDS SUMMARY | 2024-08-30 02:20 | XMS_ITS | Encounter Summary ---
Author Organization [facility] Address [address] [facility] [place] [address] Care Team Providers Care Electronics System Mechanic Name Role Phone Emmanuel Nobles MD Unavailable [phone] Anthony Leyva MD Unavailable [phone] Emil Cope MD Primary Care Provider Anthony Mazariegos MD Unavailable [phone] Ashleigh Casillas APRN [facility] Unavailable [phone] Reason for Referral * Consultation (Routine) - Pending Review Specialty Diagnoses / Procedures Referred By Madeleine watters Referred To Contact Cardiovascular Disease Diagnoses Iron malabsorption Chronic heart failure with preserved ejection fraction (H) Anthony Mazariegos MD [address] [facility] [address] [place] [address] Phone: tel: fax: Referral ID Status Reason Start Date Expiration Date V isits Requested Visits Authorized [id number] Pending Review 08/17/2024 08/17/2025 1 1 Question Answer Follow-up with: Self Patient Scheduling Instructions: [facility] will call you to coordinate your care as prescribed by your provider. If you have concerns about scheduling, please call [phone]. Comments [facility] will call you to coordinate your care as prescribed by your provider. If you have concerns about scheduling, please call [phone]. 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 Mazariegos, When do you want this completed? Estela Griffith ----- Message ----- From: Anthony Mazariegos MD Sent: 08/23/2024 7:09 AM CDT To: Estela Ball; Kim Baldwin RN; Gen Palmer, Could he get another complete metabolic panel in [place]. Last BUN 95 and Cr 3. Anthony From: Clara Jeffries Sent: 08/23/2024 2:42 PM CDT To: Estela Ball; Kim Baldwin RN; Gen Sanchez* Roderick Ballesteros spoke to patient today to offer him to see a provider here in [place] [facility] clinic. He states that he is overwhelmed at the moment with so many appointments and he would like to put this on hold and wait. Thank you Clara Natarajan ----- Message ----- From: Gen Burnham Sent: 08/22/2024 8:02 AM CDT To: Estela Ball; Kim Baldwin RN; Anthony Lawrence Adding in [place] scheduling team. Please help assist scheduling. Gen From: Roman Krishnamurthy MD Sent: 08/22/2024 12:28 PM CDT To: Estela Ball; Kim Baldwin RN; Gen Sanchez* Anthony, Happy to see him. Adding [place] team Angio/RHC on the day of MELE ideal. We can see him in [place] or virtual after the w/up. Thx! 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 He has significant elevation in BUN and creatinine given the diuretic therapy necessary to keep his edema at bay. We could probably talk him into seeing 1 of you as a consult first if that would be preferable. If that is preferable, we can do that in parallel with a hematologic visit. Thanks for your advice, Anthony From: Ashleigh Casillas APRN SECURITY ASSESSOR Sent: 08/19/2024 4:32 PM CDT To: Estela Ball; Kim Baldwin, JAMILA; Gen Sanchez* I spoke with the patient, he is willing to see a provider in [place] but hopes that this could be virtually. He also hopes that he can get labwork done ahead of time in [place]. I placed lab orders for April but these were not used, and can be done prior to his consult. He seems to understandthe plan now. Please call him to set up a consult with a hem/onc MD in [place]. Thanks, Ashleigh Casillas APRN SECURITY ASSESSOR Spoke with Pt regarding recommendations, Pt expressed understanding of the plan of care and rationale for why consult was requested. Pt would like to see provider prior to scheduling. Message sent and updated provider as well-cj ----- Message from Anthony Mazariegos sent at 08/17/2024 10:37 AM CDT ----- Estela, Could we push heme to see him soon? Could we let patient know that we would like him to see heme prior to other cardiac testing as if anemia improves it could make the heart issues easier to treat. Please keep me posted. I could do a virtual visit with him next week if helpful. Anthony ----- Message ----- From: Ashleigh Casillas APRN CNP Sent: 08/12/2024 4:43 PM CDT To: Estela Ball; Kim Baldwin, JAMILA; Anthony Quevedo The patient was instructed to establish care here in [place] with Dr. Jalloh this coming fall, but we can get him in sooner for evaluation. We do have a clinic in [place] if that is an easier option for him but he would have to chose a provider at that location to establish care with. I'm including our scheduling team to assist with moving his oncology visit up. I appreciate your communication. Ashleigh Casillas ----- Message ----- From: Anthony Mazariegos MD Sent: 08/10/2024 12:25 PM CDT To: Estela Ball; Kim Baldwin RN; Ashleigh Gipson# Dear Ashleigh Casillas, I saw Mr. Ngo [...] is somewhat reticent to coming up from [place] for clinic appointments but may be a good idea for a visit in hematology oncology clinic? Thank you for your advice. rom: Anthony Mazariegos MD Sent: 08/10/2024 7:29 AM CDT To: Estela Ball; Kim Baldwin RN; Reese Wright Thanks, Hopefully can get a plan this week. ----- Message ----- From: Kim Baldwin RN Sent: 08/09/2024 5:21 PM CDT To: Estela Ball; Reese Lazaro MD; Anthony Lawrence Thanks Dr. Mazariegos. We will pause on reaching out for now. We are generally booked out at least a few weeks/takes a bit of coordination to get one of our tricuspid NI docs on the same morning we can have MY or RA do the cath. Let us know when you think it's ok to proceed. I'll write a reminder for our team to check into his chart in a couple of weeks. Reji ----- Message ----- From: Anthony Mazariegos MD Sent: 08/09/2024 5:15 PM CDT To: Estela Ball; Reese Lazaro MD; Roman Ayala Valve team, Labs a little bit off [...] anemia and keep you posted. Anthony Griffith ----- Message ----- From: Roman Krishnamurthy MD Sent: 08/09/2024 1:48 PM CDT To: Reese Lazaro MD; Anthony Mazariegos MD; Javier* Anthony, I agree, it would be nice to [...] right heart cath and a consultation thereafter. Santa's? Would appreciate your thoughts. Thanks, Anthony * Addendum Note - Estela Ball - 08/17/2024 10:43 AM CDTAddended by: OPAL BALL on: 2024 10:57 AM Modules accepted: Orders documented in this encounter Plan of Treatment Upcoming Encounters Date Type Department Care Team (Latest Contact Info) Description 09/30/2024 7:30 AM CDT Appointment [address] [phone] Roman Krishnamurthy MD [address] [facility] [address] [place], [place] [id number] 09/30/2024 10:30 AM CDT Hospital Encounter [facility] [address] [place] [phone] Reese Lazaro MD [address] [place] [address] Other ill-defined heart diseases 09/30/2024 10:30 AM CDT - 09/30/2024 12:[address] [facility] [address] [place] [phone] Reese Lazaro MD [address] [place] [address] Coronary Angiogram Scheduled Orders Name Type Priority Associated Diagnoses Orde r Schedule Comprehensive metabolic panel Lab Routine Chronic heart failure with preserved ejection fraction (H) Expected: 2024 (Approximate), Expires: 2025 Scheduled Procedures Name Priority Associated Diagnoses Date/Ti me Percutaneous Coronary Intervention Other ill-defined heart diseases 09/30/2024 10:30 AM CDT Scheduled Referrals Name Type Priority Associated Diagnoses Orde r Schedule Follow-Up with Cardiology Referral Routine: Next available opening Iron malabsorption Chronic heart failure with preserved ejection fraction (H) Expected: 08/17/2024 (Approximate), Expires: 08/17/2025 documented as of this encounter Visit Diagnoses Diagnosis 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 [address] [place] [address] PCP - General Emergency Medicine 09/30/22 Emmanuel Nobles MD Hematology 02/07/22 Anthony Leyva MD [address] [place] [address] Gastroenterology 02/07/22 Anthony Mazariegos MD [address] [facility] [address] [place] [address] Assigned Heart and Vascular Provider 01/17/23 Ashleigh Casillas APRN SECURITY ASSESSOR [address] [place] [address] [place] [address] Assigned Cancer Care Provider 07/22/24 documented as of this encounter
--- OUTSIDE RECORDS SUMMARY | 2024-08-30 02:20 | XMS_ITS | Encounter Summary ---
Author Organization [facility] Address [address] [place] [address]. [place] [address] Care Team Providers Care Propellant Charge Zone Assembler Name Role Phone Emmanuel Nobles MD Unavailable [phone] Anthony Leyva MD Unavailable [phone] Emil Cope MD Primary Care Provider Anthony Mazariegos MD Unavailable [phone] Ashleigh Casillas APRN [facility] Unavailable [phone] Encounter Details Date Type Department Care Team (Late st Contact Info) Description 08/09/2024 Results Follow-Up [facility] - Heart & Vascular Service Line [address] [place] [address] Anthony Mazariegos MD [address] [facility] [address] [place] [address] Social History Tobacco Use Types Packs/Day Years [...] on file 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 Gender Identity Not on file Sexual Orientation Not on file documented as of this encounter Plan of Treatment Upcoming Encounters Date Type Department Care Team (Latest Contact Info) Description 09/30/2024 7:30 AM CDT Appointment [facility] [address] [place] [phone] Roman Krishnamurthy MD [address] [facility] [address] [place] [address] 09/30/2024 10:30 AM CDT Hospital Encounter [facility] [address] [place] [phone] Reese Lazaro MD [address] [address] Other ill-defined heart diseases 09/30/2024 10:30 AM CDT - 09/30/2024 12:30 PM CDT [facility] [address] [place] [phone] Reese Lazaro MD [address] [place] [address] Coronary Angiogram Scheduled Procedures Name Priority Associated Diagnoses Date/Ti me Percutaneous Coronary Intervention Other ill-defined heart diseases 09/30/2024 10:30 AM CDT documented as of this encounter Visit Diagnoses Not on filedocumented in this encounter Care Teams Propellant Charge Zone Assembler Relationship Specialty Start Date End Date Emil Cope MD [facility] [address] [place] [address] PCP - General Emergency Medicine 09/30/22 Emmanuel Nobles MD Hematology 02/07/22 Anthony Leyva MD [address] [place] [address] Gastroenterology 02/07/22 Anthony Mazariegos MD [address] [facility] [address] [place] [address] Assigned Heart and Vascular Provider 01/17/23 Ashleigh Casillas APRN [facility] [address] [facility] [address] [place] [address] Assigned Cancer Care Provider 07/22/24 documented as of this encounter
--- OUTSIDE RECORDS SUMMARY | 2024-08-30 02:21 | XMS_ITS | Clinical Summary ---
Author Organization [place] Address [address] [facility] 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 Furosemide Rash Medium 01/13/2019 Rash primarily on wrists, itchy. Medications Glucosamine-Chond roitin (COSAMIN DS PO) Take 1 tablet by mouth 2 times daily. Cosamin DS 500/400 mg Active allopurinol (ZYLOPRIM) 100 MG tablet Take 200 mg by mouth daily Active tamsulosin (FLOMAX) 0.4 MG capsule Take 0.4 mg by mouth daily Active desoximetasone (TOPICORT) 0.25 % external cream Apply topically 2 times daily as needed. 12/31/19 22 Active empagliflozin (JARDIANCE) 10 MG TABS tabletIndications :Chronic heart failure with preserved ejection fraction (H) TAKE 1 TABLET (10 MG) BY MOUTH DAILY 90 tablet 2 02/08/20 24 Active potassium chloride brett ER (KLOR-CON M20) 20 MEQ CR tabletIndications :Hypokalemia Take 1 tablet (20 mEq) by mouth 2 times daily. 180 tablet 03/25/19 25 Active betamethasone dipropionate (DIPROSONE) 0.05 % external cream Apply topically daily. 06/30/19 25 Active bumetanide (BUMEX) 2 MG tabletIndications :Chronic heart failure with preserved ejection fraction (H) Take 2 tablets (4 mg) by mouth 2 times daily. 120 tablet 1 07/21/19 25 Active metolazone (ZAROXOLYN) 2.5 MG tabletIndications :Chronic heart failure with preserved ejection fraction (H) Take 1 tablet twice weekly and as needed extra dose to take as needed for weight gain of 3 pounds in a day or 5 pounds in a week 30 tablet 3 07/22/19 25 Active ELIQUIS ANTICOAGULANT 2.5 MG tabletIndications :Permanent atrial fibrillation (H) TAKE 1 TABLET (2.5 MG) BY MOUTH 2 TIMES DAILY. 60 tablet 4 08/23/19 25 Active apixaban ANTICOAGULANT (ELIQUIS ANTICOAGULANT) 2.5 MG tabletIndications :Permanent atrial fibrillation (H) Take 1 tablet (2.5 mg) by mouth 2 times daily. 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 Post-op serum creatinine 02/17/11 1.98 mg/dl. Hyperlipidemia 08/05/2009 Essential hypertension 11/30/2006 Resolved Problems Problem Noted Date Diagnosed Date Resolved Date Acute on chronic congestive heart failure, unspecified heart failure type 02/16/2024 CKD (chronic kidney disease) stage 3, GFR 30-59 ml/min 09/17/2010 03/23/2024 Encounters Date Type Department Care Team Description 08/29/2024 1:50 PM CDT Virtual Visit [address] [place] [address] Anthony Mazariegos MD Heart failure with preserved ejection fraction, unspecified HF chronicity (H) (Primary Dx); Essential hypertension; Permanent atrial fibrillation (H); Other iron deficiency anemia 08/22/[address] [place] [phone] Anthony Mazariegos MD Medication Refill 08/19/[address] [place] [phone] Estela Adam Patient Request 08/17/2024 Telephone [facility] [address] [facility] [address] [place] [address] Estela Adam 08/09/2024 12:50 PM CDT Office Visit [address] [employer] [address] [place] [address] Anthony Mazariegos MD Acute on chronic diastolic heart failure (H); Stage 3 chronic kidney disease, unspecified whether stage 3a or 3b CKD (H); Essential hypertension; Iron malabsorption; Permanent atrial fibrillation (H); VIANNEY (obstructive sleep apnea); Heart failure with preserved ejection fraction, unspecified HF chronicity (H); Chronic heart failure with preserved ejection fraction (H); Hypokalemia 08/09/2024 Telephone [facility] [address] [facility] [address] [place] [phone] Kim Baldwin RN valve clinic referral- TR 08/09/2024 Results Follow-Up [facility] - Heart [facility] V[facility] Service Line [address] [place] [phone] Anthony Mazariegos MD 08/09/2024 Travel 07/20/2024 Results Follow-Up [facility] - General Medicine & Pediatrics [address] [place] [phone] Anthony Phillips MD 07/17/2024 8:30 AM CDT - 07/20/2024 1:55 PM CDT Hospital Encounter [facility] [address] [facility] [address] [place] [address] Gab Jacob MD Xiao, Zhilan, MD Tigner, Jacob, MD Shireen, Aziza, MD Alteration in skin integrity [R23.9] (Primary Dx); Acute on chronic congestive heart failure, unspecified heart failure type (H); Chronic heart failure with preserved ejection fraction (H); Stage 3b chronic kidney disease (H); Rash; Edema, unspecified type; Haemophilus influenzae infection Discharge Disposition: Home or Self Care 07/17/2024 Travel 07/06/2024 2:50 PM CDT Office Visit [facility] [address] [facility] [address] [place] [address] Emily Cuello APRN CNP Acute on chronic heart failure with preserved ejection fraction (HFpEF) (H) (Primary Dx); Hypokalemia; Acute kidney injury superimposed on chronic kidney disease; Essential hypertension; Permanent atrial fibrillation (H); VIANNEY (obstructive sleep apnea) 07/06/2024 Results Follow-Up [facility] [address] [place] [address] Emily Cuello APRN CNP Chief Comp: Clinic Care Coordination - Follow-up 07/06/2024 Travel 07/01/2024 Telephone [facility] [address] [facility] [address] [place] [address] Jennifer Mae RN Clinic Care Coordination - Follow-up 06/30/2024 Orders Only [facility] [address] [facility] [address] [place] [address] Reported, Patient 06/22/2024 Telephone [facility] [address] [place] [phone] Anthony Mazariegos MD Call Back (Fluid retention concerns) 06/20/2024 Orders Only [facility] [address] [facility] [address] [place] [address] Reported, Patient from Last 3 Months Immunizations Immunization Administration Dates Next Due COVID-19 MONOVALENT 12+ [...] on file 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 Gender Identity Not on file Sexual Orientation Not on file Last Filed Vital Signs Vital Sign Reading Time Taken Comments Blood Pressure 113/71 08/29/2024 1:23 PM CDT per pt Pulse 83 08/29/2024 1:23 PM CDT per p t Temperature 36.9 C (98.4 F) 07/20/2024 12:12 PM CDT Respiratory Rate 16 08/09/2024 12:46 PM CDT Oxygen Saturation 99% 08/09/2024 12:46 PM CDT Inhaled Oxygen Concentration - - Weight 111.6 kg (246 lb) 08/29/2024 1:23 PM CDT per pt Height 177.8 cm (5' 10) 08/29/2024 1:23 PM CDT per pt Body Mass Index 35.3 08/29/2024 1:23 PM CDT Plan of Treatment Upcoming Encounters Date Type Department Care Team (Latest Contact Info) Description 09/30/2024 7:30 AM CDT Appointment [address] [phone] Roman Krishnamurthy MD [address] [facility] [address] [place], [place] [phone] 09/30/2024 10:30 AM CDT Hospital Encounter [address] [phone] Reese Lazaro MD [address] [address] Other ill-defined heart diseases 09/30/2024 10:30 AM CDT - 09/30/2024 12:30 PM CDT Surgery [address] [phone] Reese Lazaro MD [address] [id number] Coronary Angiogram Scheduled Procedures Name Priority Associated Diagnoses Date/Ti me Percutaneous Coronary Intervention Other ill-defined heart diseases 09/30/2024 10:30 AM CDT Health Maintenance Due Date Last Done Comments ADVANCE CARE PLANNING 1942 ANNUAL REVIEW OF HM ORDERS 1942 HF ACTION PLAN 1942 MICROALBUMIN 1942 URIC ACID 1942 HEPATITIS A VACCINE (1 of 2 - Risk 2-dose series) 1961 ZOSTER VACCINE (1 of 2) 1992 HEPATITIS B VACCINE (1 of 3 - Risk 3-dose series) 2002 MEDICARE ANNUAL WELLNESS VISIT 08/26/2007 RSV VACCINE (1 - 1-dose 75+ series) 2017 PNEUMOCOCCAL VACCINE 50+ YEARS (2 of 2 - PPSV23) 01/10/2021 11/15/2020 COVID-19 VACCINE (5 - season) 2023 07/23/2021, 01/17/2021, 05/01/2020, Additional history exists INFLUENZA VACCINE (Season Ended) 2024 01/17/2021 FALL RISK ASSESSMENT 11/10/2024 11/11/2023, 07/18/19 23 BMP 02/08/2025 08/09/2024, 07/01, 07/19/2024, Additional history exists LIPID 05/24/2025 05/24/2024, 11/26/2021 ALT 08/09/2025 08/09/2024, 06/30, 07/17/2024, Additional history exists CBC 08/09/2025 08/09/2024, 07/01, 07/19/2024, Additional history exists DTAP/TDAP/TD VACCINE (2 - Td or Tdap) 08/21/2027 08/20/2017, 07/21/1996 COLONOSCOPY Discontinued 12/13/2021, 12/13/2021 COLORECTAL CANCER SCREENING Discontinued PHQ-2 (once per calendar year) Completed 03/23/2024, 02/12/2024, 04/03/2022 TSH W/FREE T4 REFLEX Completed 07/17/2024, 12/17/19 URINALYSIS Completed 07/17/2024, 02/16/2024 CT COLONOGRAPHY Discontinued FIT Discontinued FLEX SIG Discontinued HPV VACCINE Aged Out No longer eligi ble based on patient's age to complete this topic MENINGITIS VACCINE Aged Out No longer eligible based on patient's age to complete this topic sDNA (Cologuard) Discontinued Medical Devices Implanted Type Area Quill Fixer Device Identifier Shelf Expiration Date Model / Serial / Lot Bone Cement Simplex Full Dose 6191-1-001 Implanted:Qty: 2 on 03/29/2013 by Eric Pepper MD at [facility] Left: Knee [employer] 07/31/2015 6191-1-001 / / [id number] Imp Comp Fem Strk Triathln Cr Lt 6 [id number]-F-[id number] Implanted:Qty: 1 on 03/29/2013 by Eric Pepper MD at [facility] Left: Knee [employer] 10/30/2017 5510-F-601 / / [id number] Imp Baseplate Tibial Howm Tri 6 [id number]-B-600 Implanted:Qty: 1 on 03/29/2013 by Eric Pepper MD at [facility] Left: Knee [employer] 03/01/2018 5520-B-600 / / [id number] Imp Comp Patella Tri [id number] 5550-G-360 Implanted:Qty: 1 on 03/29/2013 by Eric Pepper MD at [facility] Left: Knee [employer] 01/29/2018 5550-G-360 / / [id number] Imp Insert Tibial Howm Tri 6x09mm 5530-G-[id number] Implanted:Qty: 1 on 03/29/2013 by Eric Pepper MD at [facility] Left: Knee [employer] 01/29/2018 5530-G-[id number] / [...] failure with preserved ejection fraction (H) Hypokalemia POTASSIUM Timed 07/20/2024 12:17 PM CDT GLUCOSE BY METER Routine 07/20/2024 12:1 3 PM CDT GLUCOSE BY METER Routine 07/20/2024 7:21 AM CDT MAGNESIUM Routine 07/20/2024 5:35 AM CDT CBC WITH PLATELETS Routine 07/20/2024 5: 35 AM CDT BASIC METABOLIC PANEL Routine 07/20/2024 5:35 AM CDT GLUCOSE BY METER Routine 07/19/2024 9:12 PM CDT GLUCOSE BY METER Routine 07/19/2024 4:59 PM CDT POTASSIUM Timed 07/19/2024 4:55 PM CDT GLUCOSE BY METER Routine 07/19/2024 12:0 3 PM CDT POTASSIUM Timed 07/19/2024 11:16 AM CDT GLUCOSE BY METER Routine 07/19/2024 7:18 AM CDT VITAMIN D DEFICIENCY SCREENING Routine 07/19/2024 5:31 AM CDT MAGNESIUM Routine 07/19/2024 5:31 AM CDT PHOSPHORUS Routine 07/19/2024 5:31 AM CDT PARATHYROID HORMONE INTACT Routine 07/19/2024 5:31 AM CDT CBC WITH PLATELETS Routine 07/19/2024 5: 31 AM CDT BASIC METABOLIC PANEL Routine 07/19/2024 5:31 AM CDT GLUCOSE BY METER Routine 07/19/2024 [...] BY METER Routine 07/18/2024 7:24 AM CDT MAGNESIUM Add-On 07/18/2024 2:54 AM CDT CBC WITH PLATELETS Routine 07/18/2024 2: 54 AM CDT HEPATIC FUNCTION PANEL Routine 07/18/2024 2:54 AM CDT BASIC METABOLIC PANEL Routine 07/18/2024 2:54 AM CDT POTASSIUM Timed 07/18/2024 2:54 AM CDT LEGIONELLA URINARY ANTIGEN AND STREPTOCOCCUS PNEUMONIAE ANTIGEN STAT 07/17/2024 10:24 PM CDT UREA NITROGEN RANDOM URINE Add-On 07/17/2024 10:24 PM CDT SODIUM RANDOM URINE Add-On 07/17/2024 1 0:24 PM CDT ROUTINE UA WITH MICROSCOPIC REFLEX TO CULTURE STAT 07/17/2024 10:24 PM CDT GLUCOSE BY METER Routine 07/17/2024 9:32 PM CDT POTASSIUM Timed 07/17/2024 8:28 PM CDT GLUCOSE BY METER Routine 07/17/2024 4:46 PM CDT ECHO COMPLETE Routine 07/17/2024 3:03 PM CDT POTASSIUM STAT 07/17/2024 2:50 PM CDT US LOWER EXTREMITY VENOUS DUPLEX BILATERAL Routine 07/17/2024 1:07 PM CDT TSH WITH FREE T4 REFLEX Add-On 07/17/2024 10:40 AM CDT INFLUENZA A/B, RSV AND SARS-COV2 PCR STAT 07/17/2024 10:40 AM CDT TROPONIN T, HIGH SENSITIVITY STAT 07/17/2024 10:40 AM CDT XR CHEST 2 VIEWS STAT 07/17/2024 9:14 AM CDT CBC WITH PLATELETS & DIFFERENTIAL STAT 07/17/2024 8:51 AM CDT EXTRA GREEN TOP (LITHIUM HEPARIN) TUBE STAT 07/17/2024 8:51 AM CDT EXTRA TUBE STAT 07/17/2024 8:51 AM CDT CBC WITH PLATELETS AND DIFFERENTIAL STAT 07/17/2024 8:51 AM CDT MAGNESIUM STAT 07/17/2024 8:51 AM CDT TROPONIN T, HIGH SENSITIVITY STAT 07/17/2024 8:51 AM CDT COMPREHENSIVE METABOLIC PANEL STAT 07/17/2024 8:51 AM CDT NT-PROBNP STAT 07/17/2024 8:51 AM CDT ECG 12-LEAD WITH MUSE SJN,SJO,WWH STAT 07/17/2024 8:40 AM CDT MAGNESIUM Today 07/06/2024 3:48 PM CDT Acute on chronic heart failure with preserved ejection fraction (HFpEF) (H) NT-PROBNP Today 07/06/2024 3:48 PM CDT Acute on chronic heart failure with preserved ejection fraction (HFpEF) (H) BASIC METABOLIC PANEL Today 07/06/2024 3:48 PM CDT Acute on chronic heart failure with preserved ejection fraction (HFpEF) (H) LAB RESULT - HIM SCAN Routine 06/27/2024 2:32 PM CDT CREATININE (EXTERNAL RESULT) Routine 06/27/2024 1:20 PM CDT GLUCOSE (EXTERNAL RESULT) Routine 06/27/2024 1:20 PM CDT POTASSIUM (EXTERNAL RESULT) Routine 06/27/2024 1:20 PM CDT LAB RESULT - HIM SCAN 06/27/2024 12:00 AM CDT LIPID PANEL (EXTERNAL RESULT) Routine 05/24/2024 10:58 AM CDT COLONOSCOPY Routine 12/13/2021 9:53 AM CDT from Last 3 Months or Most Recently Relevant to Health Maintenance Results * Ferritin (08/09/2024 1:38 PM CDT) Ferritin 215 31 - 409 ng/mL 08/10/2024 12:17 PM CDT [facility] Blood STRUCTURE OF RIGHT UPPER LIMB / Unknown Venipuncture / Unknown 08/09/2024 1:38 PM CDT 08/09/2024 3:34 PM CDT Anthony Mazariegos MD LAB - BLOOD ORDERABLES Final Result [facility] [address] [facility], [address] [place] [phone] * (ABNORMAL) Comprehensive metabolic panel (08/09/2024 1:38 PM CDT) Only the most recent of2 resultswithin the time period is included. Sodium 134(L) 135 - 145 mmol/L 08/09/2024 3:53 PM [facility] Potassium 3.5 3.4 - 5.3 mmol/L 08/09/2024 3:53 PM [facility] Carbon Dioxide (CO2) 28 22 - 29 mmol/L 08/09/2024 3:53 PM [facility] Anion Gap 19(H) 7 - 15 mmol/L 08/09/2024 3:53 PM [facility] Urea Nitrogen 94.9(H) 8.0 - 23.0 mg/dL 08/09/2024 3:53 PM [facility] Creatinine 2.97(H) 0.67 - 1.17 mg/dL 08/09/2024 3:53 PM [facility] GFR Estimate 20(L) >60 mL/min/1.7 3m2 08/09/2024 3:53 PM [facility] Comment:eGFR calculated 2020 CKD-EPI equation. Calcium 10.7(H) 8.8 - 10.4 mg/dL 08/09/2024 3:53 PM [facility] Chloride 87(L) 98 - 107 mmol/L 08/09/2024 3:53 PM [facility] Glucose 95 70 - 99 mg/dL 08/09/2024 3:53 PM [facility] Alkaline Phosphatase 135 40 - 150 U/L 08/09/2024 3:53 PM [facility] AST 31 0 - 45 U/L 08/09/2024 3:53 PM CDT [facility] ALT 23 0 - 70 U/L 08/09/2024 3:53 PM CDT [facility] Protein Total 7.2 6.4 - 8.3 g/dL 08/09/2024 3:53 PM CDT [facility] Albumin 4.0 3.5 - 5.2 g/dL 08/09/2024 3:53 PM CDT [facility] Bilirubin Total 0.9 <=1.2 mg/dL 08/09/2024 3:53 PM CDT [facility] Blood STRUCTURE OF RIGHT UPPER LIMB / Unknown Venipuncture / Unknown 08/09/2024 1:38 PM CDT 08/09/2024 3:34 PM CDT us Anthony Mazariegos MD LAB - BLOOD ORDERABLES Final Result [facility] [address] [facility] [place], [place] [address] * (ABNORMAL) CBC with platelets (08/09/2024 1:38 PM CDT) Only the most recent of4 resultswithin the time period is included. WBC Count 8.8 4.0 - 11.0 10e3/uL 08/09/2024 3:36 PM [facility] RBC Count 2.64(L) 4.40 - 5.90 10e6/uL 08/09/2024 3:36 PM T [facility] Hemoglobin 8.7(L) 13.3 - 17.7 g/dL 08/09/2024 3:36 PM [facility] Hematocrit 25.7(L) 40.0 - 53.0 % 08/09/2024 3:36 PM T [facility] MCV 97 78 - 100 fL 08/09/2024 3:36 PM [facility] MCH 33.0 26.5 - 33.0 pg 08/09/2024 3:36 PM [facility] MCHC 33.9 31.5 - 36.5 g/dL 08/09/2024 3:36 PM CDT [facility] RDW 16.7(H) 10.0 - 15.0 % 08/09/2024 3:36 PM CDT [facility] Platelet Count 145(L) 150 - 450 10e3/uL 08/09/2024 3:36 PM CDT [facility] Blood STRUCTURE OF RIGHT UPPER LIMB / Unknown Venipuncture / Unknown 08/09/2024 1:38 PM CDT 08/09/2024 3:34 PM CDT Anthony Mazariegos MD LAB - BLOOD ORDERABLES Final Result Performing Organization Address City/[facility]/ZIP Co de Phone Number [facility] [address] [place] [address] [place] [address], [facility] * (ABNORMAL) Potassium (07/20/2024 12:17 PM CDT) Only the most recent of8 resultswithin the time period is included. Potassium 3.2(L) 3.4 - 5.3 mmol/L 07/20/2024 12:32 PM CDT [facility] Blood BLOOD SPECIMEN / Unknown Venipuncture / Unknown 07/20/2024 12:17 PM CDT 07/20/2024 12:20 PM CDT Oksana Cole MD LAB - BLOOD ORDERABLES Final Re sult Performing Organization Address [facility] Co de Phone Number [facility] [address] [place] [address] [place] [address], [facility] * (ABNORMAL) Glucose by meter (07/20/2024 12:13 PM CDT) Only the most recent of13 resultswithin the time period is included. GLUCOSE BY METER POCT 129(H) 70 - 99 mg/dL 07/20/2024 12:20 PM CDT [facility] POCT RESULTS Blood, Capillary BLOOD SPECIMEN / Unknown 07/20/2024 12:13 PM CDT 07/20/2024 12:20 PM CDT Oksana Cole MD LAB - BEAKER POCT Final Result Performing Organization Address City/[facility]/ZIP Co de Phone Number [facility] POCT RESULTS [address] [place] [address] * Magnesium (07/20/2024 5:35 AM CDT) Only the most recent of5 resultswithin the time period is included. Magnesium 2.3 1.7 - 2.3 mg/dL 07/20/2024 6:08 AM [facility] Blood BLOOD SPECIMEN / Unknown Venipuncture / Unknown 07/20/2024 5:35 AM CDT 07/20/2024 5:45 AM CDT Chantal Magaña MD LAB - BLOOD ORDERABLES Final Res ult Performing Organization Address [facility] Co de Phone Number [facility] [address] [facility] [place], [place] [address] * (ABNORMAL) Basic metabolic panel (07/20/2024 5:35 AM CDT) Only the most recent of4 resultswithin the time period is included. Sodium 136 135 - 145 mmol/L 07/20/2024 6:08 AM [facility] Potassium 3.1(L) 3.4 - 5.3 mmol/L 07/20/2024 6:08 AM [facility] Chloride 91(L) 98 - 107 mmol/L 07/20/2024 6:08 AM [facility] Carbon Dioxide (CO2) 29 22 - 29 mmol/L 07/20/2024 6:08 AM [facility] Anion Gap 16(H) 7 - 15 mmol/L 07/20/2024 6:08 AM [facility] Urea Nitrogen 85.3(H) 8.0 - 23.0 mg/dL 07/20/2024 6:08 AM [facility] Creatinine 2.92(H) 0.67 - 1.17 mg/dL 07/20/2024 6:08 AM [facility] GFR Estimate 21(L) >60 mL/min/1.7 3m2 07/20/2024 6:08 AM [facility] Comment:eGFR calculated usin 2020 CKD-EPI equation. Calcium 10.6(H) 8.8 - 10.4 mg/dL 07/20/2024 6:08 AM CDT [facility] Glucose 103(H) 70 - 99 mg/dL 07/20/2024 6:08 AM CDT [facility] Blood BLOOD SPECIMEN / Unknown Venipuncture / Unknown 07/20/2024 5:35 AM CDT 07/20/2024 5:45 AM CDT Chantal Magaña MD LAB - BLOOD ORDERABLES Final Res ult [facility] [address] [facility] [place] [address], [facility] * Vitamin D Deficiency (07/19/2024 5:31 AM CDT) Vitamin D, Total (25-Hydroxy) 29 20 - 50 ng/mL 07/19/2024 9:46 AM CDT LABORATORY Comment:optimum levels Blood BLOOD SPECIMEN / Unknown Venipuncture / Unknown 07/19/2024 5:31 AM CDT 07/19/2024 5:37 AM CDT Narrative LABORATORY - 07/19/2024 9:46 AM CDT Season, race, dietary intake, and treatment affect the concentration of 59-huvbfmh-Nubfjfq D. Values may decrease during winter months and increase during summer months. Vitamin D determination is routinely performed by an immunoassay specific for 25 hydroxyvitamin D3. If an individual is on vitamin D2(ergocalciferol) supplementation, please specify 25 [place] vitamin D2 and D3 level determination by LCMSMS test VITD23. Chantal Magaña MD LAB - BLOOD ORDERABLES Final Res ult LABORATORY [facility] [address] [facility], [address] [place] [address], [place] * (ABNORMAL) Phosphorus (07/19/2024 5:31 AM CDT) Phosphorus 4.9(H) 2.5 - 4.5 mg/dL 07/19/2024 6:00 AM CDT [facility] Blood BLOOD SPECIMEN / Unknown Venipuncture / Unknown 07/19/2024 5:31 AM CDT 07/19/2024 5:37 AM CDT Chantal Magaña MD LAB - BLOOD ORDERABLES Final Res ult [facility] [address] [facility] [address] * (ABNORMAL) Parathyroid Hormone Intact (07/19/2024 5:31 AM CDT) Parathyroid Hormone Intact 210(H) 15 - 65 pg/mL 07/19/2024 9:33 AM CDT LABORATORY Blood BLOOD SPECIMEN / Unknown Venipuncture / Unknown 07/19/2024 5:31 AM CDT 07/19/2024 5:37 AM CDT Narrative [facility] - 07/19/2024 9:33 AM CDT This result was obtained with the [employer] PTH STAT assay. This reference range differs from PTH assays used in other [facility] laboratories. Chantal Magaña MD LAB - BLOOD ORDERABLES Final Res ult [facility] [address] [facility], [address] [id number] * (ABNORMAL) Respiratory Aerobic Bacterial Culture with [...] and 3rd generation cephalosporins, such as ceftriaxone. Chantal Magaña MD LAB - MICRO GENERAL ORDERABLES F inal Result [facility]AT[facility] Inf. Diseases Diag. Lab [address] [facility], [address] [place] [address] * Hepatic panel (07/18/2024 2:54 AM CDT) Pathologist [facility] Protein Total 6.7 6.4 - 8.3 g/dL 07/18/2024 3:38 AM CDT [facility] Albumin 3.6 3.5 - 5.2 g/dL 07/18/2024 3:38 AM CDT [facility] Bilirubin Total 0.8 <=1.2 mg/dL 07/18/2024 3:38 AM CDT [facility] Alkaline Phosphatase 113 40 - 150 U/L 07/18/2024 3:38 AM CDT [facility] AST 23 0 - 45 U/L 07/18/2024 3:38 AM CDT [facility] ALT 20 0 - 70 U/L 07/18/2024 3:38 AM CDT [facility] Bilirubin Direct 0.41 0.00 - 0.45 mg/dL 07/18/2024 3:38 AM CDT [facility] Comment:As of 24, refer ence ranges and trending lines may vary depending on the testing location. Blood BLOOD SPECIMEN / Unknown Venipuncture / Unknown 07/18/2024 2:54 AM CDT 07/18/2024 3:18 AM CDT Chantal Magaña MD LAB - BLOOD ORDERABLES Final Res ult [facility] [address] [place] [address], [facility] * Legionella Urinary Antigen and Streptococcus pneumoniae [...] ORDERABLES F inal Result Performing Organization Address City/[facility]/ZIP Co de Phone Number [facility] Inf. Diseases Diag. Lab [address] [facility], [address] [place] [address] * (ABNORMAL) UA with Microscopic reflex to Culture (07/17/2024 10:24 PM CDT) Color Urine Colorless Colorless, Straw, Light Yellow, Yellow 07/17/2024 10:36 PM CDT [facility] Appearance Urine Clear Clear 07/18/19 25 10:36 PM CDT [facility] Glucose Urine Negative Negative mg/dL 07/17/2024 10:36 PM CDT [facility] Bilirubin Urine Negative Negative 5 10:36 PM CDT [facility] Ketones Urine Negative Negative mg/dL 07/17/2024 10:36 PM CDT [facility] Specific [place] Urine 1.008 1.001 - 1.030 07/17/2024 10:36 PM CDT [facility] Blood Urine Negative Negative 07/17/2024 10:36 PM CDT [facility] pH Urine 6.5 5.0 - 7.0 07/17/2024 10:36 PM CDT [facility] Protein Albumin Urine Negative Negative mg/dL 07/17/2024 10:36 PM CDT [facility] Urobilinogen Urine Normal Normal mg/dL 07/17/2024 10:36 PM CDT [facility] Nitrite Urine Negative Negative 07/17/2024 10:36 PM CDT [facility] Leukocyte Esterase Urine Negative Negative 07/17/2024 10:36 PM CDT [facility] Mucus Urine Present(A) None Seen /LPF 07/17/2024 10:36 PM CDT [facility] RBC Urine 0 <=2 /HPF 07/17/2024 10:36 PM CDT [facility] WBC Urine 0 <=5 /HPF 07/17/2024 10:36 PM CDT [facility] Urine URINE SPECIMEN OBTAINED BY CLEAN CATCH PROCEDURE / Unknown Non-blood Collection / Unknown 07/17/2024 10:24 PM CDT 07/17/2024 10:31 PM CDT Narrative [facility] - 07/17/2024 10:36 PM CDT Urine Culture not indicated us Chantal Magaña MD LAB - URINE ORDERABLES Final Res ult [facility] [address] [place] [address], [facility] * (ABNORMAL) Urea nitrogen random urine with Creat Ratio (07/17/2024 10:24 PM CDT) Urea Nitrogen Urine mg/dL 262.0(L) 801.0 - 1,666.0 mg/dL 07/18/2024 12:36 PM CDT [facility] Urine URINE SPECIMEN OBTAINED BY CLEAN CATCH PROCEDURE / Unknown Non-blood Collection / Unknown 07/17/2024 10:24 PM CDT 07/17/2024 10:31 PM CDT Chantal Magaña MD LAB - URINE ORDERABLES Final Res ult [facility]AT[facility] [place] [facility] [address] [facility], [address] [address] * Sodium random urine (07/17/2024 10:24 PM CDT) Sodium Urine mmol/L 85 mmol/L 07/18/2024 7:56 AM CDT [facility] Comment:The reference ranges have not been established in urine sodium. The results should be integrated into the clinical context for interpretation. Urine URINE SPECIMEN OBTAINED BY CLEAN CATCH PROCEDURE / Unknown Non-blood Collection / Unknown 07/17/2024 10:24 PM CDT 07/17/2024 10:31 PM CDT Chantal Magaña MD LAB - URINE ORDERABLES Final Res ult [facility] [address] [place], [place] [address] * ECHO COMPLETE (07/17/2024 3:03 PM CDT) LVEF 50-55% (borderlin e) CARDIOLOGY RESULTS Anatomical Region Laterality Modality Ultrasound 07/17/2024 2:33 PM CDT Narrative 07/17/2024 4:04 PM CDT [id number]^GÓMEZ^[place] [address] Name: SHIVA MONIQUE : 1940 Study Date: 07/17/2024 02:33 PM Age: 83 yrs Gender: Male Patient Location: [facility] Reason For Study: Dyspnea Ordering Physician: CHANTAL [...] Doppler Measurements & Calculations MV E max mynor: 97.3 cm/sec MV dec slope: 463.3 cm/sec2 [...] 60.7 ml SI(LVOT): 26.3 ml/m2 TR max mynor: 309.0 cm/sec TR max P.2 mmHg AV Mynor Ratio (DI): 0.66 CLAUDIA Index (cm2/m2): 1.1 E/E': 13.1 E/E' av.6 Lateral E/e': 13.1 Medial E/e': 18.1 Peak E' Mynor: 7.4 cm/sec RV S Mynor: 7.6 cm/sec Report approved by: Shlomo Robins MD on 07/17/2024 04:04 PM Procedure Note Katie Robins MD - 07/17/2024 [id number]^GÓMEZ^[place] [address] Name: SHIVA MONIQUE : 1940 Study Date: 07/17/2024 02:33 PM Age: 83 yrs Gender: Male Patient Location: [facility] Reason For Study: Dyspnea Ordering Physician: CHANTAL [...] moderate (1-2+) mitral regurgitation. ERO is 0.17 [id number] a volume of 21 mL. 6.There is [...] Doppler Measurements & Calculations MV E max mynor: 97.3 cm/sec MV dec slope: 463.3 cm/sec2 [...] 60.7 ml SI(LVOT): 26.3 ml/m2 TR max mynor: 309.0 cm/sec TR max P.2 mmHg AV Mynor Ratio (DI): 0.66 CLAUDIA Index (cm2/m2): 1.1 E/E': 13.1 E/E' av.6 Lateral E/e': 13.1 Medial E/e': 18.1 Peak E' Mynor: 7.4 cm/sec RV S Mynor: 7.6 cm/sec Report approved by: Shlomo Robins MD on 07/17/2024 04:04 PM Chantal Magaña MD CV ECHO ORDERABLES Edited Result - Final * US Lower Extremity Venous Duplex Bilateral (07/17/2024 1:07 PM CDT) Anatomical Region Laterality Modality Vascular, Thigh, Leg Ultrasound 07/17/2024 1:07 PM CDT Impressions 07/17/2024 4:56 PM CDT IMPRESSION: 1. No deep venous thrombosis in the bilateral lower extremities. Narrative 07/17/2024 4:56 PM CDT EXAM: US LOWER EXTREMITY VENOUS DUPLEX BILATERAL LOCATION: [facility] DATE: 07/17/2024 INDICATION: bilateral leg swelling COMPARISON: [...] US LOWER EXTREMITY VENOUS DUPLEX BILATERAL LOCATION: [facility] DATE: 07/17/2024 INDICATION: bilateral leg swelling COMPARISON: [...] the bilateral lower extremities. Chantal Magaña MD [facility] ORDERABLES Final Result * Influenza A/B, RSV and SARS-CoV2 PCR (COVID-19) Nasopharyngeal (07/17/2024 10:40 AM CDT) Pathologist [facility] Influenza A PCR Negative Negative 07/17/2024 11:23 AM CDT [facility] Influenza B PCR Negative Negative 07/17/2024 11:23 AM CDT [facility] RSV PCR Negative Negative 07/17/2024 11:23 AM CDT [facility] SARS CoV2 PCR Negative Negative 07/17/2024 11:23 AM CDT [facility] Comment:NEGATIVE: SARS-CoV-2 (COVID-19) RNA not detected, presumed negative. Swab NASOPHARYNGEAL STRUCTURE / Unknown Non-blood Collection / Unknown 07/17/2024 10:40 AM CDT 07/17/2024 10:44 AM CDT Narrative [facility] - 07/17/2024 11:23 AM CDT Testing was performed using the Xpert Xpress CoV2/Flu/RSV Assay on the [employer] GeneXpert Instrument. This test should be ordered [...] management. This test was validated by the [facility]. These laboratories are certified under the Clinical Laboratory Improvement Amendments of 1988 (CLIA-88) as qualified to perfom high complexity laboratory testing. Chantal Magaña MD LAB - MICRO GENERAL ORDERABLES F inal Result [facility] [address] [place], [place] [address] * (ABNORMAL) Troponin T, High Sensitivity (07/17/2024 10:40 AM CDT) Only the most recent of2 resultswithin the time period is included. Pathologist [facility] Troponin T, High Sensitivity 202(HH) <=22 ng/L 07/17/2024 11:10 AM CDT [facility] Comment: Either a High Sensitivity Troponin [...] 10:40 AM CDT 07/17/2024 10:44 AM CDT us Gab Jacob MD LAB - BLOOD ORDERABLES Final Result Performing Organization Address City/[facility]/ZIP Co de Phone Number [facility] [address] [place] [address] [place] [address], [facility] * TSH with free T4 reflex (07/17/2024 10:40 AM CDT) TSH 2.72 0.30 - 4.20 uIU/mL 07/17/2024 12:32 PM CDT [facility] Blood BLOOD SPECIMEN / Unknown Venipuncture / Unknown 07/17/2024 10:40 AM CDT 07/17/2024 10:44 AM CDT us Chantal Magaña MD LAB - BLOOD ORDERABLES Final Res ult Performing Organization Address City/[facility]/ZIP Co de Phone Number [facility] [address] [place] [address] [address] [place] [address], [facility] * Chest XR, PA & LAT (07/17/2024 [...] CDT EXAM: XR CHEST 2 VIEWS LOCATION: [facility] DATE: 07/17/2024 INDICATION: sob, chf COMPARISON: Chest radiograph 02/16/2024. Procedure Note Marquez Lunsford MD - 07/17/2024 EXAM: XR CHEST 2 VIEWS LOCATION: [facility] DATE: 07/17/2024 INDICATION: sob, chf COMPARISON: Chest radiograph 02/16/2024. IMPRESSION: Moderately enlarged cardiac silhouette with central pulmonary vascularcongestion, diffuse interstitial edema, and small right and trace leftpleural effusions, suggesting CHF exacerbation. Bibasilar opacities arefavored to reflect atelectasis. No pneumothorax. Aortic atherosclerotic calcifications. Gab Jacob MD IMG DIAGNOSTIC IMAGING ORDERA BLES Final Result * Extra Green Top ([place] Heparin) Tube (07/17/2024 8:51 AM CDT) [facility] Hold Specimen JI 07/17/2024 10:04 AM CDT [facility] Blood BLOOD SPECIMEN / Unknown Venipuncture / Unknown 07/17/2024 8:51 AM CDT 07/17/2024 8:55 AM CDT Gab Jacob MD LAB - BLOOD ORDERABLES Final Result [facility] [address] [place], [place] [id number] [place] [address] * (ABNORMAL) CBC with platelets and differential (07/17/2024 8:51 AM CDT) [facility] WBC Count 7.6 4.0 - 11.0 10e3/uL 07/17/2024 9:00 AM [facility] RBC Count 3.00(L) 4.40 - 5.90 10e6/uL 07/17/2024 9:00 AM T [facility] Hemoglobin 9.9(L) 13.3 - 17.7 g/dL 07/17/2024 9:00 AM T [facility] Hematocrit 28.6(L) 40.0 - 53.0 % 07/17/2024 9:00 AM [facility] MCV 95 78 - 100 fL 07/17/2024 9:00 AM T [facility] MCH 33.0 26.5 - 33.0 pg 07/17/2024 9:00 AM [facility] MCHC 34.6 31.5 - 36.5 g/dL 07/17/2024 9:00 AM [facility] RDW 16.6(H) 10.0 - 15.0 % 07/17/2024 9:00 AM [facility] Platelet Count 114(L) 150 - 450 10e3/uL 07/17/2024 9:00 AM [facility] % Neutrophils 72 % 07/17/2024 9:00 AM [facility] % Lymphocytes 14 % 07/17/2024 9:00 AM [facility] % Monocytes 10 % 07/17/2024 9:00 AM [facility] % Eosinophils 3 % 07/17/2024 9:00 AM [facility] % Basophils 0 % 07/17/2024 9:00 AM [facility] % Immature Granulocytes 0 % 07/17/2024 9:00 AM [facility] NRBCs per 100 WBC 0 <1 /100 025 9:00 AM [facility] Absolute Neutrophils 5.5 1.6 - 8.3 10e3/uL 07/17/2024 9:00 AM [facility] Absolute Lymphocytes 1.1 0.8 - 5.3 10e3/uL 07/17/2024 9:00 AM [facility] Absolute Monocytes 0.8 0.0 - 1.3 10e3/uL 07/17/2024 9:00 AM [facility] Absolute Eosinophils 0.2 0.0 - 0.7 10e3/uL 07/17/2024 9:00 AM [facility] Absolute Basophils 0.0 0.0 - 0.2 10e3/uL 07/17/2024 9:00 AM [facility] Absolute Immature Granulocytes 0.0 <=0.4 10e3/uL 07/17/2024 9:00 AM [facility] Absolute NRBCs 0.0 10e3/uL 07/17/2024 9:00 AM [facility] Blood BLOOD SPECIMEN / Unknown Venipuncture / Unknown 07/17/2024 8:51 AM CDT 07/17/2024 8:53 AM T us Gab Jacob MD LAB - BLOOD ORDERABLES Final Result [facility] [address] [place] [address], [facility] * (ABNORMAL) NT-proBNP (07/17/2024 8:51 AM CDT) Only the most recent of2 resultswithin the time period is included. [facility] NT-proBNP 8,393(H) 0 - 852 pg/mL 07/17/2024 9:21 AM CDT [facility] Comment: Starting on 07/06/2024, [facility] laboratory began flagging abnormal values for plasma [...] be interpreted with the updated reference intervals. [facility]'s Pediatric (boys and girls) Reference Ranges in pg/mL * 0 up to 3 days: 0 - 45725 3 days up to 1 month: 0 [...] For adult chronic CHF patients according to [place] [employer] (NYHA) Functional Class, the mean NT-proBNP concentration is as following (5th and 95th percentile values respectively displayed in parentheses): Class I: 1016 pg/mL (33-3410) Class II: 1666 pg/mL (103-6567) Class III: 3029 pg/mL (126-77398) Class IV: 3465 pg/mL (148-18159) Clinical thresholds for acute (emergency department) settings: [...] MD LAB - BLOOD ORDERABLES Final Result [facility] [address] [place] [address], [facility] * ECG 12-LEAD WITH MUSE (LHE) (07/17/2024 8:40 AM CDT) Systolic Blood Pressure mmHg RADIOLOGY RESULTS Diastolic Blood Pressure mmHg RADIOLOGY RESULTS Ventricular Rate 71 BPM RAD IOLOGY RESULTS Atrial Rate 77 BPM RADIOLOG Y RESULTS NM Interval ms RADIOLOG Y RESULTS QRS Duration 188 ms RADIOLO GY RESULTS QT 472 ms RADIOLOGY RESULTS QTc 512 ms RADIOLOGY RESULTS P [place] degrees RADIOLOGY RESULTS R AXIS -77 degrees RADIOLOGY RESULTS T [place] 47 degrees RADIOLOGY RESULTS Interpretation ECG Atrial fibrillation Left axis deviation Right bundle branch block Inferior infarct (cited on or before 16-Feb-2024) Abnormal ECG When compared with ECG of 16-Feb-2024 09:18, No significant change was found Confirmed by SEE ED PROVIDER NOTE FOR, ECG INTERPRETATION ([id number]), newspaper photo editor Oneida Vasquez ([id number]) on 07/17/2024 8:51:16 AM RADIOLOGY RESULTS 07/17/2024 8:40 AM CDT 07/17/2024 8:51 AM CDT us Jett Saul MD ECG ORDERABLES Edited Resu lt - Final Performing Organization Address City/[facility]/ZIP Co de Phone Number RADIOLOGY RESULTS * Lab Result - HIM Scan (06/27/2024 2:32 PM CDT) Only the most recent of2 resultswithin the time period is included. us Patient Reported MH NON-BEAKER LAB TESTING Final Result * Potassium (External Result) (06/27/2024 1:20 PM CDT) Potassium (External) 3.6 3.6 - 5.1 mmol/L [facility] Blood 06/27/2024 1:20 PM CDT [facility] - 06/27/2024 1:20 PM CDT [facility] - External Lab Results us Provider Outside LAB - HIM EXTERNAL RESULT Final Result Performing Organization Address [facility] de Phone Number [facility] [address] [phone] * (ABNORMAL) Glucose (External Result) (06/27/2024 1:20 PM CDT) Glucose (External) 141(A) 60 - 115 mg/dL [facility] Blood 06/27/2024 1:20 PM CDT [facility] - 06/27/2024 1:20 PM CDT [facility] - External Lab Results us Provider Outside LAB - HIM EXTERNAL RESULT Final Result Performing Organization Address [facility] Co de Phone Number [facility] [address] [phone] * (ABNORMAL) Creatinine (External Result) (06/27/2024 1:20 PM CDT) Creatinine (External) 2.9(A) 0.5 - 1.5 mg/dL [facility] Blood 06/27/2024 1:20 PM CDT [facility] - 06/27/2024 1:20 PM CDT [facility] - External Lab Results us Provider Outside LAB - HIM EXTERNAL RESULT Final Result Performing Organization Address City/[facility]/ZIP Co de Phone Number [facility] [address] [place] [address], [facility] [phone] * Lipid Panel (External Result) (05/24/2024 10:58 AM CDT) [facility] Cholesterol (External) 128 90 - 199 mg/dL [facility] Triglycerides (External) 101 40 - 149 mg/dL [facility] HDL Cholesterol (External) 59 >=40 mg/dL [facility] LDL Cholesterol Calculated (External) 49 <100 mg/dL [facility] Blood 05/24/2024 10:5 8 AM CDT [facility] - 05/24/2024 10:58 AM CDT [facility]- External Lab Result us Provider Outside LAB - HIM EXTERNAL RESULT Final Result Performing Organization Address [facility] Co de Phone Number [facility] [address] [place] [address], [facility] [phone] * COLONOSCOPY (12/13/2021 9:53 AM CDT) COLONOSCOPY [address] [address] Patient Name: Shiva Huber Procedure Date: 12/13/2021 9:53 AM Date of : 1940 Admit Type: Inpatient Age: 81 Room: [place] [address] Note Status: Finalized Attending MD: JOSE DIALLO , Total Sedation Time: Instrument Name: Adult Colonoscope 630 Procedure: Colonoscopy Indications: Iron deficiency anemia Providers: JOSE DIALLO Referring MD: Medicines: Monitored Anesthesia Care Complications: No immediate complications. Procedure: Pre-Anesthesia Assessment: - Prior to the procedure, a History and Physical was performed, and patient medications and allergies were reviewed. The patient's tolerance of previous anesthesia was also reviewed. The risks and benefits of the procedure and the sedation options and risks were discussed with the patient. All questions were answered, and informed consent was obtained. Prior Anticoagulants: The patient has taken Eliquis (apixaban), last dose was 2 days prior to procedure. ASA Grade Assessment: III - A patient with severe systemic disease. After reviewing the risks and benefits, the patient was deemed in satisfactory condition to undergo the procedure. After obtaining informed consent, the colonoscope was passed under direct vision. Throughout the procedure, the patient's blood pressure, pulse, and oxygen saturations were monitored continuously. The colonoscope was introduced through the anus and advanced to the terminal ileum. The colonoscopy was technically difficult and complex due to restricted mobility of the colon. Successful completion of the procedure was aided by changing the patient to a prone position and using manual pressure. The patient tolerated the procedure well. The quality of the bowel preparation was good. The terminal ileum, ileocecal valve, appendiceal orifice, and rectum were photographed. Findings: The perianal and digital rectal examinations were normal. The terminal ileum appeared normal. A 2 mm polyp was found in the cecum. The polyp was sessile. The polyp was removed with a cold biopsy forceps. Resection and retrieval were complete. Estimated blood loss was minimal. A 5 mm polyp was found in the cecum. The polyp was sessile. The polyp was removed with a cold snare. Resection and retrieval were complete. Estimated blood loss was minimal. Two sessile polyps were found in the descending colon. The polyps were 6 mm and 12 mm in size. These polyps were removed with a cold snare. Resection and retrieval were complete. There was some persistent oozing from the polypectomy site of the larger polyp. 2 hemoclips were placed with successful hemostasis. Two sessile polyps were found in the rectum. The polyps were 1 to 2 mm in size. These polyps were removed with a cold biopsy forceps. Resection and retrieval were complete. Estimated blood loss was minimal. Non-bleeding internal hemorrhoids were found during retroflexion. Moderate Sedation: See Anesthesia Note Impression: - The examined portion of the ileum was normal. - One 2 mm polyp in the cecum, removed with a cold biopsy forceps. Resected and retrieved. - One 5 mm polyp in the cecum, removed with a cold snare. Resected and retrieved. - Two 6 mm and 12 mm polyps in the descending colon, removed with a cold snare. Resected and retrieved. 2 hemoclips placed at polypectomy site of larger polyp. - Two 1 to 2 mm polyps in the rectum, removed with a cold biopsy forceps. Resected and retrieved. - Non-bleeding internal hemorrhoids. Recommendation: - [facility]. - Advance diet as tolerated. - Await pathology results. - Hold eliquis x 72hrs. No NSAIDs. - No evidence of GI bleeding or lesions with bleeding potential. Recommend evaluating for non-GI causes of anemia. Jose Diallo MD JOSE DIALLO, 12/13/2021 10:49:58 AM I was physically present for the entire viewing portion of the exam. Signature of teaching physician Cam/Mattie DIALLO Number of Addenda: 0 Note Initiated On: 12/13/2021 9:53 AM Scope In: 10:00:34 AM Scope Out: 10:41:53 AM RADIOLOGY RESULTS 12/13/2021 9:53 AM CDT Jose Diallo MD PROCEDURES Final Result RADIOLOGY RESULTS from Last 3 Months or Most Recently Relevant to Health Maintenance Insurance MEDICARE MEDICARE MEDICARE BC [employer] Advance Directives For more information, please contact: [phone] * Full Code (Latest Code Status on File) Date Activated Date Inactivated Comments 07/17/2024 11:50 AM 07/20/2024 4:06 PM All basic a nd advanced life-sustaining interventions are performed as appropriate Question Answer Comments Code status determined by: Discussion with patie nt/ legal decision maker * Full Code Date Activated Date Inactivated Comments 02/16/2024 4:54 PM 07/17/2024 8:15 AM Question Answer Comments Code status determined by: Unable to dis cuss and no AD/POLST on file; continue PREVIOUSLY ORDERED code status * Full Code Date Activated Date Inactivated Comments 12/12/2021 1:28 PM 12/20/2021 3:31 PM All basic and advanced life-sustaining interventions are performed as appropriate Question Answer Comments Code status determined by: Discussion with patie nt/ legal decision maker * Full Code Date Activated Date Inactivated Comments 03/29/2013 6:39 PM 03/31/2013 5:03 PM Care Teams Store Deli Manager Relationship Specialty Start Date End Date Emil Cope MD [facility] [address] [place] [address] PCP - General Emergency Medicine 09/30/22 Emmanuel Nobles MD Hematology 02/07/22 Anthony Leyva MD [address] [place] [address] Gastroenterology 02/07/22 Anthony Mazariegos MD [address] [place] [address] [address] [place] [address] Assigned Heart and Vascular Provider 01/17/23 Ashleigh Casillas APRN SUSTAINABLE AGRICULTURE SPECIALIST [address] [place] [address] [address] [place] [address] Assigned Cancer Care Provider 07/22/24
--- OUTSIDE RECORDS SUMMARY | 2024-08-30 02:21 | XMS_ITS | Encounter Summary ---
Author Organization [place] Address [address] 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 [address] [address] [place], [place] [id number] 09/30/2024 10:30 AM CDT Hospital Encounter [facility] Care [address] [place] [phone] Reese Lazaro MD [address] [place] [address] Other ill-defined heart diseases 09/30/2024 10:30 AM CDT - 09/30/2024 12:30 PM CDT Surgery [facility] Care [address] [place] [address] Reese Lazaro MD [address] [facility] [place] [address] Coronary Angiogram Scheduled Procedures Name Priority Associated Diagnoses Date/Ti me Percutaneous Coronary Intervention Other ill-defined heart diseases 09/30/2024 10:30 AM CDT documented as of this encounter Visit Diagnoses Not on filedocumented in this encounter Care Teams Head Housekeeper Relationship Specialty Start Date End Date Emil Cope MD [facility] [address] [place] [address] PCP - General Emergency Medicine 09/30/22 Emmanuel Nobles MD Hematology 02/07/22 Anthony Leyva MD [address] [place] [address] Gastroenterology 02/07/22 Anthony Mazariegos MD 1600 [facility] 200 [place] [address] Assigned Heart and Vascular Provider 01/17/23 Ashleigh Casillas APRN LD TEACHER [address] [place] [address], [facility] [address] [place] [address] Assigned Cancer Care Provider 07/22/24 documented as of this encounter
--- OUTSIDE RECORDS SUMMARY | 2024-08-30 02:21 | XMS_ITS | Encounter Summary ---
Author Organization [place] Address [address] [facility] [place] [address] Care Team Providers Care Heater Engineer Helper Name Role Phone HenryciraEmmanuel MD Unavailable [phone] Anthony Leyva MD Unavailable [phone] Emil Cope MD Primary Care Provider Anthony Mazariegos MD Unavailable Nallely Saravia MD Unavailable Ashleigh Casillas APRN HOMEBIRTH MIDWIFE Unavailable Reason for Visit * Reason Onset Date Comments Clinic Care Coordination - Follow-up 07/06/2024 Encounter Details Date Type Department Care Team (Latest Contact Info) Description 07/06/2024 Results Follow-Up [facility] [address] [facility] [address] [place] [phone] Emily Cuello APRN HOMEBIRTH MIDWIFE [address] [facility] [address] [place] [address] Chief Comp: Clinic Care Coordination - Follow-up Social History Tobacco Use Types Packs/Day Years [...] an overnight skilled nursing, or couch-surfing.) Yes 02/17/2024 Are you worried [...] on file 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 We wanted to send this to Dr Mazariegos also to review. Please let us know how we can be of assistance. Thank you Nestor Prieto RN * Telephone Encounter - David Prieto RN - 07/07/2024 10:17 AM CDT Images from the original note were not included. Patient called us back. We reviewed his lab results and reinforced Emily and Dr Mazariegos's recommendations. Patient stated he is not able to go to the ED because he took his morning Metolazone and Bumex today. He stated his volume was up in clinic 07/06/24 due to not taking his diuretics because he needs to travel to [place] from [facility]. Patient has reported, I know all this stuff and stated the importance on making his wound care appointment today in [facility]. Patient stated I have to take things 1 at a time and that he will have to tackle this next week, I know everything is elevated. We attempted to explain the importance following the providers recommendations. Patient expressed concern on wait times in an ED, and his need to urinate when driving to even with a urinal. Thank you Nestor Prieto RN Emily Cuello APRN HOMEBIRTH MIDWIFE to [facility] Core Anthony Mazariegos MD (Selected Message) 07/06/24 10:59 PM Result Note NTproBNP is significantly elevated. Renal function has declined further from last lab from 06/27. Given 15-20 lbs weight gain with worsening HF symptoms and with further decline in renal function, I would highly recommend ED visit for further evaluation. Patient will likely need hospitalization with close monitoring of his renal function. Thank you! FYI to Dr. Mazariegos. documented in this encounter Plan of Treatment Upcoming Encounters Date Type Department Care Team (Latest Contact Info) Description 09/30/2024 7:30 AM CDT Appointment [address] [address] Roman Krishnamurthy MD 1600 [facility] 200 [place] [address] 09/30/2024 10:30 AM CDT Hospital Encounter [facility] [address] [place] [phone] Reese Lazaro MD [address] [place] [id number] Other ill-defined heart diseases 09/30/2024 10:30 AM CDT - 09/30/2024 12:30 PM CDT Surgery [address] [phone] Reese Lazaro MD [address] [place] [address] Coronary Angiogram Scheduled Procedures Name Priority Associated Diagnoses Date/Ti me Percutaneous Coronary Intervention Other ill-defined heart diseases 09/30/2024 10:30 AM CDT documented as of this encounter Visit Diagnoses Not on filedocumented in this encounter Additional Health Concerns Infection Onset Date Last Indicated Resolved Time Rule Out COVID-19 07/17/2024 07/17/2024 07/17/2024 11:23 AM CDT documented as of this encounter Care Teams Heater Engineer Helper Relationship Specialty Start Date End Date Emil oCpe MD [facility] [address] [place] [address] PCP - General Emergency Medicine 09/30/22 Emmanuel Nobles MD Hematology 02/07/22 Anthony Leyva MD [address] [place] [address] Gastroenterology 02/07/22 Anthony Mazariegos MD 1600 [facility] 200 [place] [address] Assigned Heart and Vascular Provider 01/17/23 Nallely Saravia MD [address] [place] [address] Assigned Cancer Care Provider 06/23/23 07/21/24 Ashleigh Casillas APRN [facility] [address] [place] [address] [address] [place] [address] Assigned Cancer Care Provider 07/22/24 documented as of this encounter
--- OUTSIDE RECORDS SUMMARY | 2024-08-30 02:22 | XMS_ITS | Encounter Summary ---
Author Organization [place] Address [address] [place] [address] Care Team Providers Care Radiographer Technologist Name Role Phone HenryciraEmmanuel MD Unavailable [phone] Anthony Leyva MD Unavailable [phone] Emil Cope MD Primary Care Provider Anthony Mazariegos MD Unavailable Nallely Saravia MD Unavailable Ashleigh Casillas APRN [facility] Unavailable Encounter Details Date Type Department Care Team (Late st Contact Info) Description 07/20/2024 Results Follow-Up [facility] Services - General Medicine & Pediatrics [address] [place] [phone] Anthony Phillips MD [facility]5 [facility] [place] [address] Social History Tobacco Use Types Packs/Day Years [...] in an abandoned building, in an overnight custodial, or couch-surfing.) Yes 07/17/2024 Are you worried [...] on file 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 Gender Identity Not on file Sexual Orientation Not on file documented as of this encounter Plan of Treatment Upcoming Encounters Date Type Department Care Team (Latest Contact Info) Description 09/30/2024 7:30 AM CDT Appointment [facility] [address] [place] [phone] Roman Krishnamurthy MD 1600 [facility] 200 [place], [place] [phone] 09/30/2024 10:30 AM CDT Hospital Encounter [facility] Heart Care [address] [place] [address] Reese Lazaro MD [address] [place] [address] Other ill-defined heart diseases 09/30/2024 10:30 AM CDT - 09/30/2024 12:30 PM CDT Surgery [facility] Heart Care [address] [place] [phone] Reese Lazaro MD [address] [place] [address] Coronary Angiogram Scheduled Procedures Name Priority Associated Diagnoses Date/Ti me Percutaneous Coronary Intervention Other ill-defined heart diseases 09/30/2024 10:30 AM CDT documented as of this encounter Visit Diagnoses Not on filedocumented in this encounter Care Teams Radiographer Technologist Relationship Specialty Start Date End Date Emil Cope MD [facility] [address] [place] [address] PCP - General Emergency Medicine 09/30/22 Emmanuel Nobles MD Hematology 02/07/22 Anthony Leyva MD 909 [place] [address] Gastroenterology 02/07/22 Anthony Mazariegos MD 1600 [facility] 200 [place] [address] Assigned Heart and Vascular Provider 01/17/23 Nallely Saravia MD [address] [place] [address] Assigned Cancer Care Provider 06/23/23 07/21/24 Ashleigh Casillas APRN [facility] [address] [place] [address] Assigned Cancer Care Provider 07/22/24 documented as of this encounter
--- OUTSIDE RECORDS SUMMARY | 2024-08-30 02:22 | XMS_ITS | Encounter Summary ---
Author Organization [place] Address [address] [facility] [place] [address] Care Team Providers Care Pin Drafting Machine Operator Name Role Phone Emmanuel Nobles MD Unavailable [phone] Anthony Leyva MD Unavailable [phone] Emil Cope MD Primary Care Provider Anthony Mazariegos MD Unavailable [phone] Nallely Saravia MD Unavailable Ashleigh Casillas APRN [facility] Unavailable Encounter Details Date Type Department Care Team (Late st Contact Info) Description 06/30/2024 [facility] [place] 1600 [facility] [address] [place] [phone] Reported, Patient Social History Tobacco Use Types [...] in an abandoned building, in an overnight penitentiary, or couch-surfing.) Yes 02/17/2024 Are you worried [...] on file 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 Gender Identity Not on file Sexual Orientation Not on file documented as of this encounter Plan of Treatment Upcoming Encounters Date Type Department Care Team (Latest Contact Info) Description 09/30/2024 7:30 AM CDT Appointment [address] [phone] Roman Krishnamurthy MD 1600 [facility] [address] [place], [place] [phone] 09/30/2024 10:30 AM CDT Hospital Encounter [facility] Heart Care [address] [place] [phone] Reese Lazaro MD [address] [place] [id number] Other ill-defined heart diseases 09/30/2024 10:30 AM CDT - 09/30/2024 12:30 PM CDT [facility] [address] [place] [address] Reese Lazaro MD 6[address] [facility] [place] [address] Coronary Angiogram Scheduled Procedures Name Priority Associated Diagnoses Date/Ti me Percutaneous Coronary Intervention Other ill-defined heart diseases 09/30/2024 10:30 AM CDT documented as of this encounter Procedures Procedure Name Priority Date/Time Associated Diagnosis Comments LAB RESULT - HIM SCAN Routine 06/27/2024 2:32 PM CDT documented in this encounter Results * Lab Result - HIM Scan (06/27/2024 2:32 PM CDT) us Patient Reported MH NON-BEAKER LAB TESTING Final Result documented in this encounter Visit Diagnoses Not on filedocumented in this encounter Additional Health Concerns Infection Onset Date Last Indicated Resolved Time Rule Out COVID-19 07/17/2024 07/17/2024 07/17/2024 11:23 AM CDT documented as of this encounter Care Teams Pin Drafting Machine Operator Relationship Specialty Start Date End Date Emil Cope MD [facility] [address] [place] [address] PCP - General Emergency Medicine 09/30/22 Emmanuel Nobles MD Hematology 02/07/22 Anthony Leyva MD 9 [place] [address] Gastroenterology 02/07/22 Anthony Mazariegos MD 1600 [facility] 200 [place] [address] Assigned Heart and Vascular Provider 01/17/23 Nallely Saravia MD [address] [place] [address] Assigned Cancer Care Provider 06/23/23 07/21/24 Ashleigh Casillas APRN [facility] [address] [place] [address] [address] [place] [address] Assigned Cancer Care Provider 07/22/24 documented as of this encounter
--- OUTSIDE RECORDS SUMMARY | 2024-08-30 02:22 | XMS_ITS | Encounter Summary ---
Author Organization [place] Address [facility]0 [facility] [place] [address] Care Team Providers Care Insulation Professional Name Role Phone Anthony Mazariegos MD Primary Care Provider [phone] Emmanuel Nobles MD Unavailable [phone] Anthony Leyva MD Unavailable [phone] Verona Mclain HOUSEHOLD WORKER BUCKET WASH OPERATOR Unavailable Anthony Leyva MD Unavailable [phone] Shaila Mota HOUSEHOLD WORKER BUCKET WASH OPERATOR Unavailable Unavailable Evaristo Stack BUCKET WASH OPERATOR Unavailable Anthony Mazariegos MD Unavailable [phone] Shaila Mota APRN BUCKET WASH OPERATOR Unavailable Unavailable Emil Cope MD Primary Care Provider Anthony Mazariegos MD Unavailable [phone] Nallely Saravia MD Unavailable Ashleigh Casillas HOUSEHOLD WORKER BUCKET WASH OPERATOR Unavailable [phone] Reason for Visit * Reason Comments Medication Refill Encounter Details Date Type Department Care Team (Late st Contact Info) Description 05/17/2022 [place] [id number] [facility] [address] [place] [phone] Anthony Mazariegos MD [address] [facility] [address] [place] [address] Medication Refill Social History Tobacco Use Types Packs/Day Years Used Date Smoking Tobacco: Never Smokeless Tobacco: Never Alcohol Use Standard Drinks/Week Comments Yes 0 (1 standard drink = 0.6 oz pur e alcohol) very rare PHQ-2 Answer Date Recorded PHQ-2 Score 0 04/03/2022 Sex and Gender Information Value Date Recorded Sex Assigned at Not on file 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 Gender Identity Not on file Sexual Orientation [...] Info) Description 09/30/2024 7:30 AM CDT Appointment [address] [phone] Roman Krishnamurthy MD [address] [facility] [address] [address] [place] [address] 09/30/2024 10:30 AM CDT Hospital Encounter [address] [phone] Reese Lazaro MD [address] [place] [id number] Other ill-defined heart diseases 09/30/2024 10:30 AM CDT - 09/30/2024 12:30 PM CDT Surgery [address] [phone] Reese Lazaro MD [address] [place] [id number] Coronary Angiogram Scheduled Procedures Name Priority Associated Diagnoses Date/Ti me Percutaneous Coronary Intervention Other ill-defined heart diseases 09/30/2024 10:30 AM CDT documented as of this encounter Visit Diagnoses Diagnosis Acute on chronic diastolic heart failure (H) Acute on chronic diastolic heart failure Stage 3 chronic kidney disease, unspecified whether stage 3a or 3b CKD (H) Essential hypertension Unspecified essential hypertension Other ill-defined heart diseases Other ill-defined heart diseases documented in this encounter Additional Health Concerns Infection Onset Date Last Indicated Resolved Time Rule Out COVID-19 07/17/2024 07/17/2024 07/17/2024 11:23 AM CDT documented as of this encounter Care Teams Insulation Professional Relationship Specialty Start Date End Date Anthony Mazariegos MD [address] [address] PCP - General Cardiovascular Disease 01/14/22 3 Emil Cope MD [facility] [address] [place] [address] PCP - General Emergency Medicine 09/30/22 Emmanuel Nobles MD [address] [address] Hematology 02/07/22 Anthony Leyva MD [address] [place] [address] Gastroenterology 02/07/22 Verona Mclain APRN BUCKET WASH OPERATOR 15[address] [place] [address] Assigned Cancer Care Provider 04/05/22 07/25/22 Anthony Leyva MD [address] [place] [address] Assigned Gastroenterology Provider 04/12/22 10/22/23 Shaila Mota APRN BUCKET WASH OPERATOR [address] [place] [address] Assigned Heart and Vascular Provider 05/17/22 07/18/22 Evaristo Stack CNP [address] [place] [address] [address] [place], [place] [phone] Assigned Cancer Care Provider 07/26/22 06/22/23 Anthony Mazariegos MD 1600 [facility] [address] [place] [address] Assigned Heart and Vascular Provider 07/19/22 09/19/22 Shaila Mota APRN BUCKET WASH OPERATOR Assigned Heart and Vascular Provider 09/20/22 01/16/23 Anthony Mazariegos MD 1600 [facility] 200 [place] [address] Assigned Heart and Vascular Provider 01/17/23 Nallely Saravia MD [address] [place] [address] Assigned Cancer Care Provider 06/23/23 07/21/24 Ashleigh Casillas APRN BUCKET WASH OPERATOR [address] [place] [address] [address] [place] [address] Assigned Cancer Care Provider 07/22/24 documented as of this encounter
--- OUTSIDE RECORDS SUMMARY | 2024-08-30 02:22 | XMS_ITS | Encounter Summary ---
Author Organization [place] Address 2450 [facility] [place] [address] Care Team Providers Care Interactive Media Specialist Name Role Phone Anthony Mazariegos MD Primary Care Provider [phone] Emmanuel Nobles MD Unavailable [phone] Anthony Leyva MD Unavailable [phone] Verona Mclain TELESCOPE OPERATOR BILINGUAL SALES REPRESENTATIVE Unavailable Anthony Leyva MD Unavailable [phone] Shaila Mota TELESCOPE OPERATOR BILINGUAL SALES REPRESENTATIVE Unavailable Unavailable Evaristo Stack BILINGUAL SALES REPRESENTATIVE Unavailable Anthony Mazariegos MD Unavailable [phone] Shaila Mota APRN BILINGUAL SALES REPRESENTATIVE Unavailable Unavailable Emil Cope MD Primary Care Provider Anthony Mazariegos MD Unavailable Nallely Saravia MD Unavailable Ashleigh Casillas TELESCOPE OPERATOR BILINGUAL SALES REPRESENTATIVE Unavailable [phone] Encounter Details Date Type Department Care Team (Late st Contact Info) Description 05/30/2022 [facility] Heart [facility] [address] 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 Gender Identity Not on file Sexual Orientation [...] Info) Description 09/30/2024 7:30 AM CDT Appointment [address] [phone] Roman Krishnamurthy MD 1600 [facility] 200 [place], [place] [address] 09/30/2024 10:30 AM CDT Hospital Encounter [address] [phone] Reese Lazaro MD [address] [place] [address] Other ill-defined heart diseases 09/30/2024 10:30 AM CDT - 09/30/2024 12:30 PM CDT Surgery [address] [phone] Reese Lazaro MD [address] [place] [id number] Coronary Angiogram Scheduled Procedures Name Priority Associated Diagnoses Date/Ti me Percutaneous Coronary Intervention Other ill-defined heart diseases 09/30/2024 10:30 AM CDT documented as of this encounter Procedures Procedure Name Priority Date/Time Associated Diagnosis Comments LAB RESULT - HIM SCAN Routine 05/30/2022 documented in this encounter Results * Lab Result - HIM Scan (05/30/2022) us Provider Unknown MH NON-BEAKER LAB TESTING Final Result documented in this encounter Visit Diagnoses Not on filedocumented in this encounter Additional Health Concerns Infection Onset Date Last Indicated Resolved Time Rule Out COVID-19 07/17/2024 07/17/2024 07/17/2024 11:23 AM CDT documented as of this encounter Care Teams Interactive Media Specialist Relationship Specialty Start Date End Date Anthony Mazariegos MD [address] [address] PCP - General Cardiovascular Disease 01/14/22 3 Emil Cope MD [facility] [address] [place] [address] PCP - General Emergency Medicine 09/30/22 Emmanuel Nobles MD [address] [address] Hematology 02/07/22 Anthony Leyva MD [address] [place] [address] Gastroenterology 02/07/22 Verona Mclain APRN BILINGUAL SALES REPRESENTATIVE [address] [place] [address] Assigned Cancer Care Provider 04/05/22 07/25/22 Anthony Leyva MD [address] [place] [address] Assigned Gastroenterology Provider 04/12/22 10/22/23 Shaila Moat APRN BILINGUAL SALES REPRESENTATIVE [address] [place] [address] Assigned Heart and Vascular Provider 05/17/22 07/18/22 Evaristo Stack CNP [address] [place] [address] 130 [place] [address] Assigned Cancer Care Provider 07/26/22 06/22/23 Anthony Mazariegos MD 1600 [facility] [address] [place] [address] Assigned Heart and Vascular Provider 07/19/22 09/19/22 Shaila Mota APRN BILINGUAL SALES REPRESENTATIVE Assigned Heart and Vascular Provider 09/20/22 01/16/23 Anthony Mazariegos MD 1600 [facility] [address] [place] [address] Assigned Heart and Vascular Provider 01/17/23 Nallely Saravia MD [address] [place] [address] Assigned Cancer Care Provider 06/23/23 07/21/24 Ashleigh Casillas APRN BILINGUAL SALES REPRESENTATIVE [address] [place] [address] [address] [place] [address] Assigned Cancer Care Provider 07/22/24 documented as of this encounter
--- OUTSIDE RECORDS SUMMARY | 2024-08-30 02:22 | XMS_ITS | Encounter Summary ---
Author Organization [facility] Address [address] [facility] 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 [employer] Gender Identity Not on file Sexual Orientation Not on file documented as of this encounter Plan of Treatment Upcoming Encounters Date Type Department Care Team (Latest Contact Info) Description 09/30/2024 7:30 AM CDT Appointment [facility] [address] [phone] Roman Krishnamurthy MD [address] [facility] [address] [place], [place] [id number] 09/30/2024 10:30 AM CDT Hospital Encounter [facility] Heart [address] [phone] Reese Lazaro MD [address] [id number] Other ill-defined heart diseases 09/30/2024 10:30 AM CDT - 09/30/2024 12:30 PM CDT Surgery [facility] [address] [place] [phone] Reese Lazaro MD [address] [place] [address] Coronary Angiogram Scheduled Procedures Name Priority Associated Diagnoses Date/Ti me Percutaneous Coronary Intervention Other ill-defined heart diseases 09/30/2024 10:30 AM CDT documented as of this encounter Visit Diagnoses Not on filedocumented in this encounter Additional Health Concerns Infection Onset Date Last Indicated Resolved Time Rule Out COVID-19 07/17/2024 07/17/2024 07/17/2024 11:23 AM CDT documented as of this encounter Care Teams [employer]isher Relationship Specialty Start Date End Date Emil Cope MD [facility] [address] [place] [address] PCP - General Emergency Medicine 09/30/22 Emmanuel Nobles MD Hematology 02/07/22 Anthony Leyva MD [address] [place] [address] Gastroenterology 02/07/22 Anthony Mazariegos MD [address] [facility] [address] [place] [address] Assigned Heart and Vascular Provider 01/17/23 Nallely Saravia MD [address] [place] [address] Assigned Cancer Care Provider 06/23/23 07/21/24 documented as of this encounter
== END 2024-08-29 10:39 | disposition home or self-care (01) ==
LOC: NPINS 10:39
PROVIDERS: PCP Internal Medicine; Visit Provider Internal Medicine Cardiovascular Disease
DX: I50.33 Acute on chronic diastolic (congestive) heart failure (principal)
CPT/HCPCS: 80048